=== PATIENT | male | born 1935 | race Caucasian/White ===

== ENCOUNTER 2017-07-28 19:22 | Emergency (ER) | payer MEDICARE, OTHER ==
[~2017-07-28] VITALS: Ht 177.8 cm; Wt 69.4 kg
[~2017-07-28 19:22] MED LIST: ASPIR 8181 MG PO; ASPIRIN325 MG PO; AZITHROMYCIN 500MG/NS 250 ML 250 ML IV STA; Aspirin PO; BUMETANIDE1 MG PO; DOCUSATE SODIU100 MG PO; ENTRESTO PO; FUROSEMIDE40 MG PO; LEVAQUIN500 MG PO; LISINOPRIL10 MG PO; METOPROLOL TART25 MG PO; NITROGLYCERIN0.4 MG SL; NORCO 7.5-3251 EACH PO; PRAVASTATIN SOD40 MG PO; SIMVASTATIN20 MG PO; SODIUM CHLORIDE 0.9% 1000ML 1,000 ML IV STA; triamcinolone TOP
[2017-07-28 20:53] LABS: BASOPHILS # (AUTO) 0.1 (0.0-0.1); BASOPHILS % 0.8 % (0.0-1.0); EOSINOPHILS # (AUTO) 0.3 (0.0-0.4); EOSINOPHILS % 2.9 % (0.0-6.0); HEMATOCRIT 44.5 % (38.2-49.6); HEMOGLOBIN 14.5 g/dL (14.0-18.0); LYMPHOCYTES # (AUTO) 1.1 (1.0-3.2); LYMPHOCYTES % 11.8 % (18.0-39.1); MEAN CORPUSCULAR HEMOGLOBIN 26.7 pg (28-32); MEAN CORPUSCULAR HGB CONC 32.6 g/dL (31-35); MONOCYTES # (AUTO) 0.7 (0.2-0.8); MONOCYTES % 7.4 % (4.4-11.3); NEUTROPHILS # (AUTO) 7.1 (2.1-6.9); NEUTROPHILS % 76.9 % (38.7-80.0); PLATELET COUNT 167 x10e3/uL (140-360); RED BLOOD COUNT 5.43 x10e6/uL (4.3-5.7); RED CELL DISTRIBUTION WIDTH 24.1 % (11.7-14.4)
[2017-07-28] MEDS ORDERED: DIATRIZOATE MEGL/DIATRIZOA SOD 30 ML BTL PO ONE (20:55)
[2017-07-28 21:02] LABS: INR 1.06; PROTHROMBIN TIME 14.4 seconds (11.9-14.5)
[2017-07-28 21:03] LABS: PARTIAL THROMBOPLASTIN TIME 39.3 seconds (23.8-35.5)
[2017-07-28 21:11] LABS: ALBUMIN 3.3 g/dL (3.5-5.0); ALBUMIN/GLOBULIN RATIO 0.8 (0.8-2.0); ANION GAP 15.6 mmol/L (8-16); CALCIUM 9.9 mg/dL (8.4-10.2); CREATININE, SERUM 1.6 mg/dL (0.72-1.25); POTASSIUM 3.6 mmol/L (3.5-5.1)
[2017-07-28 21:15] LABS: B-TYPE NATRIURETIC PEPTIDE2 3795.8 pg/mL (0-100)
[2017-07-28 21:18] LABS: CREATINE KINASE MB 2.5 ng/mL (0.00-5.00); TROPONIN I 0.294 ng/mL (0-0.300)
[2017-07-28 21:37] LABS: ANISOCYTOSIS SLIGHT; PLATELET ESTIMATE ADEQUATE; PLATELET MORPHOLOGY COMMENT FEW GIANT; RBC MORPHOLOGY COMMENT NORMAL
--- NOTE | 2017-07-29 04:31 | Diagnostic Imaging Report ---
EXAM: CT ABDOMEN/PELVIS WO DATE: 07/28/2017 8:33 PM INDICATION: \S\ABD PAIN, CONSTIPATION NO BM X 1 WEEK, CHF ON DOPAMINE COMPARISON: 03/25/2017 TECHNIQUE: The abdomen and pelvis were scanned using a multidetector helical scanner. Coronal and sagittal reformations were obtained. Routine protocol performed. IV Contrast: None FINDINGS: Lack of IV contrast decreases sensitivity in evaluating abdominal and pelvic organs. LOWER THORAX: Cardiomegaly poststernotomy with partially imaged leads. Small left and trace right pleural effusions LIVER/BILIARY: Grossly unremarkable. GALLBLADDER: Not visualized SPLEEN: Unchanged, not enlarged. PANCREAS: Unremarkable ADRENALS: No nodules KIDNEYS: No hydronephrosis or stone disease. Left renal cortical thinning/scarring. GI TRACT: No evidence of obstruction. Scattered diverticulosis. Moderate stool burden within the rectosigmoid colon. VESSELS: Moderate to severe atherosclerotic calcifications. PERITONEUM/RETROPERITONEUM: No free fluid or air LYMPH NODES: No lymphadenopathy REPRODUCTIVE ORGANS/BLADDER: Poorly assessed due to streak artifact from right hip arthroplasty. BONES: Partially imaged right hip arthroplasty. Scattered degenerative changes with minimal anterolisthesis of L5 over S1 IMPRESSION: Moderate rectosigmoid stool burden. Otherwise no acute abnormality on noncontrast evaluation. Signed by: Dr Willow Falcon MD on 07/28/2017 11:08 PM
--- NOTE | 2017-07-29 04:31 | Diagnostic Imaging Report ---
CHEST SINGLE (PORTABLE), 07/28/2017 10:28 PM Technique: CHEST SINGLE (PORTABLE) Comparison: 06/10/2017 Clinical history: Abdominal pain Findings: See Impression Impression: 1. Lines/Tubes: Stable left chest wall ICD and right PICC. Intact median sternotomy wires. 2. Stable mildly enlarged cardiac silhouette. 3. Small bilateral effusions with left basilar opacity, favor atelectasis in the absence of signs/symptoms of infection. Signed by: Dr Willow Falcon MD on 07/28/2017 11:56 PM
== END 2017-07-29 02:15 | disposition home or self-care (01) ==
LOC: ER 19:22
DX: K62.5 Hemorrhage of anus and rectum (principal); K59.00 Constipation, unspecified; I50.9 Heart failure, unspecified; N18.9 Chronic kidney disease, unspecified; I25.10 Atherosclerotic heart disease of native coronary artery without angina pectoris; I25.2 Old myocardial infarction
CPT/HCPCS: 36415; 71010; 74176; 80053; 82150; 82550; 82553; 83605; 83690; 83735; 83880; 84484; 85025; 85610; 85730; 99284

== ENCOUNTER 2019-06-03 17:53 | Emergency (ER) | payer MEDICARE, OTHER ==
[~2019-06-03] VITALS: Ht 177.8 cm; Wt 69.4 kg
[~2019-06-03 17:53] MED LIST changes: -AZITHROMYCIN 500MG/NS 250 ML 250 ML IV STA; -SODIUM CHLORIDE 0.9% 1000ML 1,000 ML IV STA
--- OUTSIDE RECORDS SUMMARY | 2019-06-03 18:07 | XMS REPORT ---
Author Author [facility] Address Unknown Phone Unavailable Care Team Providers Care Partner Integration Planner Name Role Phone EZ FRANCK Unavailable Unavailable TORRI HILLMAN Unavailable Unavailable Joy ARDON Unavailable Unavailable SHAWNVAN LAUREANO Unavailable Unavailable NESTOR SENIOR Unavailable Unavailable BENSON, ARICheco Unavailable Unavailable SAMWAYS, WILEY BONILLA Unavailable Unavailable WILSONJennifer ESPINO Unavailable Unavailable EMELINA, RUPERTO BO Unavailable Unavailable KONSTANTINMin STEARNS Unavailable Unavailable BEERSNEDRA Unavailable Unavailable CAMACHOGael GARCIA Unavailable Unavailable HUNGER, TAB BOWMAN Unavailable Unavailable DI-TOMASSO, G ЕЛЕНА Unavailable Unavailable SHAMEKA PRECIADO Unavailable Unavailable Karuna CHAVES Unavailable Unavailable MARTHA SAM Unavailable Unavailable SWEET, A LAIRD Unavailable Unavailable SENAIT PAZ Unavailable Unavailable Rhonda OLIVER Unavailable Unavailable SHEBIB, ZAHER Unavailable Unavailable BANG, SOUHEIL Unavailable Unavailable COLLEEN, SOBEIDA Unavailable Unavailable Problems This patient has no known problems. Allergies, Adverse Reactions, Alerts This patient has no known allergies or adverse reactions. Medications This patient has no known medications. Results Test Description Test Time Test Comments Text Results Atomic Results Result Comments MAGNESIUM 2019-05-03 11:24:00 MAGNESIUM (BEAKER) (test uvwu=491) 2.1 mg/dL 1.6-2.6 BASIC METABOLIC [id number] 11:24:00* Test Item Value Reference Range Comments SODIUM (BEAKER) (test wifo=535) 138 meq/L 136-145 POTASSIUM (BEAKER) (test dxed=226) 4.4 meq/L 3.5-5.1 CHLORIDE (BEAKER) (test poyz=862) 107 meq/L 98-107 CO2 (BEAKER) (test gemm=617) 26 meq/L 22-29 BLOOD UREA NITROGEN (BEAKER) (test lkmv=255) 30 mg/dL 7-21 CREATININE (BEAKER) (test dymy=720) 1.12 mg/dL 0.57-1.25 GLUCOSE RANDOM (BEAKER) (test ejyl=920) 92 mg/dL 70-105 CALCIUM (BEAKER) (test tukd=376) 9.4 mg/dL 8.4-10.2 EGFR (BEAKER) (test szmt=8925) 63 mL/min/1.73 sq m ESTIMATED GFR IS NOT ACCURATE CREATININE CLEARANCE IN PREDICTING GLOMERULAR FILTRATION RATE. ESTIMATED GFR IS NOT APPLICABLE FOR DIALYSIS PATIENTS. HEPATIC FUNCTION [id number] 11:24:00* Test Item Value Reference Range Comments TOTAL PROTEIN (BEAKER) (test iobh=580) 7.4 gm/dL 6.0-8.3 ALBUMIN (BEAKER) (test cdnt=4507) 3.9 g/dL 3.5-5.0 BILIRUBIN TOTAL (BEAKER) (test haph=690) 0.4 mg/dL 0.2-1.2 BILIRUBIN DIRECT (BEAKER) (test lbxz=458) 0.2 mg/dL 0.1-0.5 ALKALINE PHOSPHATASE (BEAKER) (test oyac=249) 126 U/L 40-150 AST (SGOT) (BEAKER) (test mqaf=426) 21 U/L 5-34 ALT (SGPT) (BEAKER) (test itfp=198) 12 U/L 6-55 LACTATE DEHYDROGENASE (LDH)2019-05-03 11:24:00* Test Item Value Reference Range Comments LACTATE DEHYDROGENASE (BEAKER) (test jvda=074) 208 U/L 125-220 PROTHROMBIN [id number] 11:13:00* Test Item Value Reference Range Comments PROTIME (BEAKER) (test puxl=024) 19.3 seconds 11.9-14.2 INR (BEAKER) (test gdkn=313) 1.7 <=5.9 Effective 11/28/2018: PT Reference Range ChangeNew: 11.9-14.2 Previous: 11.7-14. 7RECOMMENDED COUMADIN/WARFARIN INR THERAPY RANGESSTANDARD DOSE: 2.0-3.0 Include s: PROPHYLAXIS for venous thrombosis, systemic embolization; TREATMENT for venou s thrombosis and/or pulmonary embolus.HIGH RISK: Target INR is 2.5-3.5 for patie nts wiht mechanical heart valves.CBC W/PLT COUNT & AUTO [id number] 11:07:00* Test Item Value Reference Range Comments WHITE BLOOD CELL COUNT (BEAKER) (test tnnv=313) 11.3 K/ L 3.5-10.5 RED BLOOD CELL COUNT (BEAKER) (test cpos=626) 3.82 M/ L 4.63-6.08 HEMOGLOBIN (BEAKER) (test seja=950) 9.8 GM/DL 13.7-17.5 HEMATOCRIT (BEAKER) (test hhpo=346) 32.2 % 40.1-51.0 MEAN CORPUSCULAR VOLUME (BEAKER) (test sxuh=049) 84.3 fL 79.0-92.2 MEAN CORPUSCULAR HEMOGLOBIN (BEAKER) (test hwyg=710) 25.7 pg 25.7-32.2 MEAN CORPUSCULAR HEMOGLOBIN CONC (BEAKER) (test csxk=900) 30.4 GM/DL 32.3-36.5 RED CELL DISTRIBUTION WIDTH (BEAKER) (test rwgk=564) 17.1 % 11.6-14.4 PLATELET COUNT (BEAKER) (test mqpu=031) 286 K/CU MM 150-450 MEAN PLATELET VOLUME (BEAKER) (test bsyq=081) 10.4 fL 9.4-12.4 NUCLEATED RED BLOOD CELLS (BEAKER) (test otcc=215) 0 /100 WBC 0-0 NEUTROPHILS RELATIVE PERCENT (BEAKER) (test nigl=862) 73 % LYMPHOCYTES RELATIVE PERCENT (BEAKER) (test kewx=622) 12 % MONOCYTES RELATIVE PERCENT (BEAKER) (test cpaf=832) 7 % EOSINOPHILS RELATIVE PERCENT (BEAKER) (test swle=490) 7 % BASOPHILS RELATIVE PERCENT (BEAKER) (test tcnq=478) 1 % NEUTROPHILS ABSOLUTE COUNT (BEAKER) (test qkme=573) 8.23 K/ L 1.78-5.38 LYMPHOCYTES ABSOLUTE COUNT (BEAKER) (test jmjd=888) 1.32 K/ L 1.32-3.57 MONOCYTES ABSOLUTE COUNT (BEAKER) (test inpq=040) 0.79 K/ L 0.30-0.82 EOSINOPHILS ABSOLUTE COUNT (BEAKER) (test yemr=289) 0.76 K/ L 0.04-0.54 BASOPHILS ABSOLUTE COUNT (BEAKER) (test foyn=262) 0.13 K/ L 0.01-0.08 IMMATURE GRANULOCYTES-RELATIVE PERCENT (BEAKER) (test xwra=3437) 0 % 0-1 [id number] 12:01:00* Test Item Value Reference Range Comments MAGNESIUM (BEAKER) (test sbtd=074) 2.3 mg/dL 1.6-2.6 BASIC METABOLIC [id number] 12:01:00* Test Item Value Reference Range Comments SODIUM (BEAKER) (test qyhp=260) 140 meq/L 136-145 POTASSIUM (BEAKER) (test wzqz=881) 4.7 meq/L 3.5-5.1 CHLORIDE (BEAKER) (test bnwk=416) 106 meq/L 98-107 CO2 (BEAKER) (test zrgy=268) 24 meq/L 22-29 BLOOD UREA NITROGEN (BEAKER) (test ocis=751) 32 mg/dL 7-21 CREATININE (BEAKER) (test uxnx=236) 1.22 mg/dL 0.57-1.25 GLUCOSE RANDOM (BEAKER) (test wjgq=780) 93 mg/dL 70-105 CALCIUM (BEAKER) (test ewhi=393) 10.0 mg/dL 8.4-10.2 EGFR (BEAKER) (test wobj=5832) 57 mL/min/1.73 sq m ESTIMATED GFR IS NOT ACCURATE CREATININE CLEARANCE IN PREDICTING GLOMERULAR FILTRATION RATE. ESTIMATED GFR IS NOT APPLICABLE FOR DIALYSIS PATIENTS. HEPATIC FUNCTION [id number] 12:01:00* Test Item Value Reference Range Comments TOTAL PROTEIN (BEAKER) (test nnhy=058) 7.9 gm/dL 6.0-8.3 ALBUMIN (BEAKER) (test nlpe=6879) 4.1 g/dL 3.5-5.0 BILIRUBIN TOTAL (BEAKER) (test cbqe=165) 0.6 mg/dL 0.2-1.2 BILIRUBIN DIRECT (BEAKER) (test prlb=831) 0.3 mg/dL 0.1-0.5 ALKALINE PHOSPHATASE (BEAKER) (test twds=019) 140 U/L 40-150 AST (SGOT) (BEAKER) (test bpvw=008) 28 U/L 5-34 ALT (SGPT) (BEAKER) (test qawl=748) 11 U/L 6-55 LACTATE DEHYDROGENASE (LDH)2019-03-22 12:01:00* Test Item Value Reference Range Comments LACTATE DEHYDROGENASE (BEAKER) (test cwlp=137) 327 U/L 125-220 PROTHROMBIN [id number] 11:52:00* Test Item Value Reference Range Comments PROTIME (BEAKER) (test tcua=497) 13.9 seconds 11.9-14.2 INR (BEAKER) (test vnbd=711) 1.1 <=5.9 Effective 11/28/2018: PT Reference Range ChangeNew: 11.9-14.2 Previous: 11.7-14. 7RECOMMENDED COUMADIN/WARFARIN INR THERAPY RANGESSTANDARD DOSE: 2.0-3.0 Include s: PROPHYLAXIS for venous thrombosis, systemic embolization; TREATMENT for venou s thrombosis and/or pulmonary embolus.HIGH RISK: Target INR is 2.5-3.5 for patie nts wiht mechanical heart valves.CBC W/PLT COUNT & AUTO [id number] 11:43:00* Test Item Value Reference Range Comments WHITE BLOOD CELL COUNT (BEAKER) (test rius=750) 10.5 K/ L 3.5-10.5 RED BLOOD CELL COUNT (BEAKER) (test kzuy=545) 4.02 M/ L 4.63-6.08 HEMOGLOBIN (BEAKER) (test asty=768) 10.7 GM/DL 13.7-17.5 HEMATOCRIT (BEAKER) (test iydb=718) 34.2 % 40.1-51.0 MEAN CORPUSCULAR VOLUME (BEAKER) (test fdgl=726) 85.1 fL 79.0-92.2 MEAN CORPUSCULAR HEMOGLOBIN (BEAKER) (test mfcs=395) 26.6 pg 25.7-32.2 MEAN CORPUSCULAR HEMOGLOBIN CONC (BEAKER) (test fcby=823) 31.3 GM/DL 32.3-36.5 RED CELL DISTRIBUTION WIDTH (BEAKER) (test pcvy=413) 15.8 % 11.6-14.4 PLATELET COUNT (BEAKER) (test vwvd=585) 374 K/CU MM 150-450 MEAN PLATELET VOLUME (BEAKER) (test iicq=971) 10.0 fL 9.4-12.4 NUCLEATED RED BLOOD CELLS (BEAKER) (test cgaj=259) 0 /100 WBC 0-0 NEUTROPHILS RELATIVE PERCENT (BEAKER) (test bule=336) 67 % LYMPHOCYTES RELATIVE PERCENT (BEAKER) (test twdj=999) 14 % MONOCYTES RELATIVE PERCENT (BEAKER) (test gxgg=516) 8 % EOSINOPHILS RELATIVE PERCENT (BEAKER) (test puir=049) 9 % BASOPHILS RELATIVE PERCENT (BEAKER) (test ljtq=014) 1 % NEUTROPHILS ABSOLUTE COUNT (BEAKER) (test jasm=428) 6.96 K/ L 1.78-5.38 LYMPHOCYTES ABSOLUTE COUNT (BEAKER) (test ucsb=823) 1.49 K/ L 1.32-3.57 MONOCYTES ABSOLUTE COUNT (BEAKER) (test ephp=751) 0.84 K/ L 0.30-0.82 EOSINOPHILS ABSOLUTE COUNT (BEAKER) (test spmh=911) 0.98 K/ L 0.04-0.54 BASOPHILS ABSOLUTE COUNT (BEAKER) (test rtav=972) 0.15 K/ L 0.01-0.08 IMMATURE GRANULOCYTES-RELATIVE PERCENT (BEAKER) (test menw=0897) 1 % 0-1 [id number] 05:05:00* Test Item Value Reference Range Comments MAGNESIUM (BEAKER) (test lrke=738) 2.0 mg/dL 1.6-2.6 BASIC METABOLIC [id number] 05:05:00* Test Item Value Reference Range Comments SODIUM (BEAKER) (test hxne=639) 141 meq/L 136-145 POTASSIUM (BEAKER) (test mnyt=831) 3.9 meq/L 3.5-5.1 CHLORIDE (BEAKER) (test dkne=213) 107 meq/L 98-107 CO2 (BEAKER) (test gawq=052) 27 meq/L 22-29 BLOOD UREA NITROGEN (BEAKER) (test dqdh=945) 29 mg/dL 7-21 CREATININE (BEAKER) (test szij=640) 1.16 mg/dL 0.57-1.25 GLUCOSE RANDOM (BEAKER) (test dupj=879) 89 mg/dL 70-105 CALCIUM (BEAKER) (test ejfn=748) 9.0 mg/dL 8.4-10.2 EGFR (BEAKER) (test qtzh=3425) 60 mL/min/1.73 sq m ESTIMATED GFR IS NOT ACCURATE CREATININE CLEARANCE IN PREDICTING GLOMERULAR FILTRATION RATE. ESTIMATED GFR IS NOT APPLICABLE FOR DIALYSIS PATIENTS. LACTATE DEHYDROGENASE (LDH)2019-03-13 05:05:00* Test Item Value Reference Range Comments LACTATE DEHYDROGENASE (BEAKER) (test ieoz=098) 186 U/L 125-220 PROTHROMBIN [id number] 04:59:00* Test Item Value Reference Range Comments PROTIME (BEAKER) (test kbyh=519) 13.4 seconds 11.9-14.2 INR (BEAKER) (test bjxo=867) 1.1 <=5.9 Effective 11/28/2018: PT Reference Range ChangeNew: 11.9-14.2 Previous: 11.7-14. 7RECOMMENDED COUMADIN/WARFARIN INR THERAPY RANGESSTANDARD DOSE: 2.0-3.0 Include s: PROPHYLAXIS for venous thrombosis, systemic embolization; TREATMENT for venou s thrombosis and/or pulmonary embolus.HIGH RISK: Target INR is 2.5-3.5 for patie nts wiht mechanical heart valves.CBC W/PLT COUNT & AUTO [id number] 04:49:00* Test Item Value Reference Range Comments WHITE BLOOD CELL COUNT (BEAKER) (test idhq=592) 9.4 K/ L 3.5-10.5 RED BLOOD CELL COUNT (BEAKER) (test xszz=372) 3.31 M/ L 4.63-6.08 HEMOGLOBIN (BEAKER) (test gbor=153) 8.5 GM/DL 13.7-17.5 HEMATOCRIT (BEAKER) (test bpfv=086) 28.1 % 40.1-51.0 MEAN CORPUSCULAR VOLUME (BEAKER) (test lshm=632) 84.9 fL 79.0-92.2 MEAN CORPUSCULAR HEMOGLOBIN (BEAKER) (test ssgq=825) 25.7 pg 25.7-32.2 MEAN CORPUSCULAR HEMOGLOBIN CONC (BEAKER) (test nbvi=878) 30.2 GM/DL 32.3-36.5 RED CELL DISTRIBUTION WIDTH (BEAKER) (test qfhc=164) 16.1 % 11.6-14.4 PLATELET COUNT (BEAKER) (test kpoa=544) 301 K/CU MM 150-450 MEAN PLATELET VOLUME (BEAKER) (test ersf=888) 9.8 fL 9.4-12.4 NUCLEATED RED BLOOD CELLS (BEAKER) (test xgau=995) 0 /100 WBC 0-0 NEUTROPHILS RELATIVE PERCENT (BEAKER) (test hain=714) 59 % LYMPHOCYTES RELATIVE PERCENT (BEAKER) (test naew=200) 18 % MONOCYTES RELATIVE PERCENT (BEAKER) (test opxd=798) 11 % EOSINOPHILS RELATIVE PERCENT (BEAKER) (test addv=469) 10 % BASOPHILS RELATIVE PERCENT (BEAKER) (test lfiy=195) 1 % NEUTROPHILS ABSOLUTE COUNT (BEAKER) (test rvmu=889) 5.58 K/ L 1.78-5.38 LYMPHOCYTES ABSOLUTE COUNT (BEAKER) (test inpb=905) 1.72 K/ L 1.32-3.57 MONOCYTES ABSOLUTE COUNT (BEAKER) (test gwcw=542) 1.05 K/ L 0.30-0.82 EOSINOPHILS ABSOLUTE COUNT (BEAKER) (test pqbv=919) 0.91 K/ L 0.04-0.54 BASOPHILS ABSOLUTE COUNT (BEAKER) (test vkxh=986) 0.13 K/ L 0.01-0.08 IMMATURE GRANULOCYTES-RELATIVE PERCENT (BEAKER) (test xvoc=3685) 0 % 0-1 BASIC METABOLIC [id number] 09:03:00* Test Item Value Reference Range Comments SODIUM (BEAKER) (test wcri=420) 139 meq/L 136-145 POTASSIUM (BEAKER) (test vmtj=545) 4.1 meq/L 3.5-5.1 CHLORIDE (BEAKER) (test yhcj=955) 104 meq/L 98-107 CO2 (BEAKER) (test wpzj=742) 26 meq/L 22-29 BLOOD UREA NITROGEN (BEAKER) (test ypti=453) 27 mg/dL 7-21 CREATININE (BEAKER) (test kqyt=968) 1.23 mg/dL 0.57-1.25 GLUCOSE RANDOM (BEAKER) (test ypea=253) 92 mg/dL 70-105 CALCIUM (BEAKER) (test omqb=788) 9.4 mg/dL 8.4-10.2 EGFR (BEAKER) (test xtiv=9412) 56 mL/min/1.73 sq m ESTIMATED GFR IS NOT ACCURATE CREATININE CLEARANCE IN PREDICTING GLOMERULAR FILTRATION RATE. ESTIMATED GFR IS NOT APPLICABLE FOR DIALYSIS PATIENTS. PROTHROMBIN TIME/[id number] 08:55:00* Test Item Value Reference Range Comments PROTIME (BEAKER) (test tusm=789) 13.2 seconds 11.9-14.2 INR (BEAKER) (test dnek=936) 1.0 <=5.9 Effective 11/28/2018: PT Reference Range ChangeNew: 11.9-14.2 Previous: 11.7-14. 7RECOMMENDED COUMADIN/WARFARIN INR THERAPY RANGESSTANDARD DOSE: 2.0-3.0 Include s: PROPHYLAXIS for venous thrombosis, systemic embolization; TREATMENT for venou s thrombosis and/or pulmonary embolus.HIGH RISK: Target INR is 2.5-3.5 for patie nts wiht mechanical heart valves.CBC W/PLT COUNT & AUTO [id number] 08:54:00* Test Item Value Reference Range Comments WHITE BLOOD CELL COUNT (BEAKER) (test wdnn=796) 11.2 K/ L 3.5-10.5 RED BLOOD CELL COUNT (BEAKER) (test cner=567) 3.46 M/ L 4.63-6.08 HEMOGLOBIN (BEAKER) (test lbrl=849) 9.2 GM/DL 13.7-17.5 HEMATOCRIT (BEAKER) (test epay=584) 29.4 % 40.1-51.0 MEAN CORPUSCULAR VOLUME (BEAKER) (test xuhn=394) 85.0 fL 79.0-92.2 MEAN CORPUSCULAR HEMOGLOBIN (BEAKER) (test emnq=546) 26.6 pg 25.7-32.2 MEAN CORPUSCULAR HEMOGLOBIN CONC (BEAKER) (test krxf=963) 31.3 GM/DL 32.3-36.5 RED CELL DISTRIBUTION WIDTH (BEAKER) (test panl=957) 16.3 % 11.6-14.4 PLATELET COUNT (BEAKER) (test aoyp=366) 344 K/CU MM 150-450 MEAN PLATELET VOLUME (BEAKER) (test srmv=067) 9.9 fL 9.4-12.4 NUCLEATED RED BLOOD CELLS (BEAKER) (test lnhd=373) 0 /100 WBC 0-0 NEUTROPHILS RELATIVE PERCENT (BEAKER) (test ipqx=126) 65 % LYMPHOCYTES RELATIVE PERCENT (BEAKER) (test qvum=595) 16 % MONOCYTES RELATIVE PERCENT (BEAKER) (test vtgr=663) 9 % EOSINOPHILS RELATIVE PERCENT (BEAKER) (test lvaq=645) 9 % BASOPHILS RELATIVE PERCENT (BEAKER) (test ozlv=160) 1 % NEUTROPHILS ABSOLUTE COUNT (BEAKER) (test notq=692) 7.25 K/ L 1.78-5.38 LYMPHOCYTES ABSOLUTE COUNT (BEAKER) (test wtge=768) 1.73 K/ L 1.32-3.57 MONOCYTES ABSOLUTE COUNT (BEAKER) (test wgxb=819) 1.03 K/ L 0.30-0.82 EOSINOPHILS ABSOLUTE COUNT (BEAKER) (test xkxu=319) 0.98 K/ L 0.04-0.54 BASOPHILS ABSOLUTE COUNT (BEAKER) (test ovra=803) 0.12 K/ L 0.01-0.08 IMMATURE GRANULOCYTES-RELATIVE PERCENT (BEAKER) (test yyhm=4687) 1 % 0-1 CBC W/PLT COUNT & AUTO [id number] 13:59:00* Test Item Value Reference Range Comments WHITE BLOOD CELL COUNT (BEAKER) (test zvwd=278) 10.2 K/ L 3.5-10.5 RED BLOOD CELL COUNT (BEAKER) (test ubcz=423) 3.47 M/ L 4.63-6.08 HEMOGLOBIN (BEAKER) (test ehlo=845) 9.3 GM/DL 13.7-17.5 HEMATOCRIT (BEAKER) (test sakq=727) 30.1 % 40.1-51.0 MEAN CORPUSCULAR VOLUME (BEAKER) (test wbsg=066) 86.7 fL 79.0-92.2 MEAN CORPUSCULAR HEMOGLOBIN (BEAKER) (test hxvb=667) 26.8 pg 25.7-32.2 MEAN CORPUSCULAR HEMOGLOBIN CONC (BEAKER) (test uwsj=096) 30.9 GM/DL 32.3-36.5 RED CELL DISTRIBUTION WIDTH (BEAKER) (test ihxp=481) 16.7 % 11.6-14.4 PLATELET COUNT (BEAKER) (test nsft=834) 359 K/CU MM 150-450 MEAN PLATELET VOLUME (BEAKER) (test zbdk=619) 10.1 fL 9.4-12.4 NUCLEATED RED BLOOD CELLS (BEAKER) (test cfxr=278) 0 /100 WBC 0-0 (CELLAVISION MANUAL DIFF)2019-03-08 13:59:00* Test Item Value Reference Range Comments NEUTROPHILS - REL (CELLAVISION)(BEAKER) (test hkwt=2495) 75 % LYMPHOCYTES - REL (CELLAVISION)(BEAKER) (test izye=2750) 7 % MONOCYTES - REL (CELLAVISION)(BEAKER) (test vvko=2189) 5 % EOSINOPHILS - REL (CELLAVISION)(BEAKER) (test lbdn=6589) 10 % BASOPHILS - REL (CELLAVISION)(BEAKER) (test higo=6257) 2 % ATYPICAL LYMPHOCYTES - REL (CELLAVISION)(BEAKER) (test flrl=7354) 1 % 0-0 NEUTROPHILS - ABS (CELLAVISION)(BEAKER) (test qnxa=6887) 7.65 K/ul 1.78-5.38 LYMPHOCYTES - ABS (CELLAVISION)(BEAKER) (test ndvf=4453) 0.71 K/ul 1.32-3.57 MONOCYTES - ABS (CELLAVISION)(BEAKER) (test trcy=5835) 0.51 K/uL 0.30-0.82 EOSINOPHILS - ABS (CELLAVISION)(BEAKER) (test lziz=5479) 1.02 K/uL 0.04-0.54 BASOPHILS - ABS (CELLAVISION)(BEAKER) (test obxo=0577) 0.20 K/uL 0.01-0.08 ATYPICAL LYMPHOCYTES - ABS (CELLAVISION)(BEAKER) (test ttmk=9309) 0.10 K/uL 0.00-0.00 TOTAL COUNTED (BEAKER) (test ffdw=2696) 100 MANUAL NRBC PER 100 CELLS (BEAKER) (test xpwm=7942) 1 /100 WBC 0-0 WBC MORPHOLOGY (BEAKER) (test gebu=363) Normal PLT MORPHOLOGY (BEAKER) (test eujx=246) Normal POLYCHROMATOPHILLIC RBCS(BEAKER) (test ddva=742) 1+ few HYPOCHROMIA (BEAKER) (test uudo=403) 1+ few LOUIS CELLS (BEAKER) (test fxko=114) 1+ few ARTIFACT (CELLAVISION)(BEAKER) (test behu=3274) Present PLATELET CONCENTRATION (CELLAVISION)(BEAKER) (test cprn=6508) Adequate Received comment: User comments: Slide comments: [id number] 12:52:00* Test Item Value Reference Range Comments MAGNESIUM (BEAKER) (test ntce=775) 1.7 mg/dL 1.6-2.6 BASIC METABOLIC [id number] 12:52:00* Test Item Value Reference Range Comments SODIUM (BEAKER) (test rncm=030) 139 meq/L 136-145 POTASSIUM (BEAKER) (test izfm=331) 4.8 meq/L 3.5-5.1 CHLORIDE (BEAKER) (test afeu=702) 106 meq/L 98-107 CO2 (BEAKER) (test cifh=217) 28 meq/L 22-29 BLOOD UREA NITROGEN (BEAKER) (test srlp=558) 29 mg/dL 7-21 CREATININE (BEAKER) (test ktex=626) 1.13 mg/dL 0.57-1.25 GLUCOSE RANDOM (BEAKER) (test sbln=900) 97 mg/dL 70-105 CALCIUM (BEAKER) (test cake=117) 10.0 mg/dL 8.4-10.2 EGFR (BEAKER) (test dqui=5259) 62 mL/min/1.73 sq m ESTIMATED GFR IS NOT ACCURATE CREATININE CLEARANCE IN PREDICTING GLOMERULAR FILTRATION RATE. ESTIMATED GFR IS NOT APPLICABLE FOR DIALYSIS PATIENTS. HEPATIC FUNCTION [id number] 12:52:00* Test Item Value Reference Range Comments TOTAL PROTEIN (BEAKER) (test ahcs=809) 7.1 gm/dL 6.0-8.3 ALBUMIN (BEAKER) (test cmua=7572) 4.0 g/dL 3.5-5.0 BILIRUBIN TOTAL (BEAKER) (test umzv=324) 0.7 mg/dL 0.2-1.2 BILIRUBIN DIRECT (BEAKER) (test rqou=927) 0.4 mg/dL 0.1-0.5 ALKALINE PHOSPHATASE (BEAKER) (test lbrj=059) 125 U/L 40-150 AST (SGOT) (BEAKER) (test xbua=529) 21 U/L 5-34 ALT (SGPT) (BEAKER) (test osvg=244) 10 U/L 6-55 LACTATE DEHYDROGENASE (LDH)2019-03-08 12:52:00* Test Item Value Reference Range Comments LACTATE DEHYDROGENASE (BEAKER) (test zsge=245) 250 U/L 125-220 PROTHROMBIN TIME/[id number] 12:21:00* Test Item Value Reference Range Comments PROTIME (BEAKER) (test qbbs=276) 13.1 seconds 11.9-14.2 INR (BEAKER) (test axln=558) 1.0 <=5.9 Effective 11/28/2018: PT Reference Range ChangeNew: 11.9-14.2 Previous: 11.7-14. 7RECOMMENDED COUMADIN/WARFARIN INR THERAPY RANGESSTANDARD DOSE: 2.0-3.0 Include s: PROPHYLAXIS for venous thrombosis, systemic embolization; TREATMENT for venou s thrombosis and/or pulmonary embolus.HIGH RISK: Target INR is 2.5-3.5 for patie nts wiht mechanical heart valves.RAD, CHEST, 1 VIEW, NON [id number] 08:03:00 Reason for exam:->dyspneaShould this be performed at the bedside?->YesFINAL REPORT CLINICAL HISTORY: dyspnea TECHNIQUE: 1 view of the chest. COMPARISON: 12/18/2018 IMPRESSION: There are no focal infiltrates or effusions. The cardiomediastinal silhouette is magnified by technique with st ernotomy wires, pacemaker, and LVAD. Signed: Shonda Mahoney MDReport Verified Da te/Time: 03/02/2019 08:03:46 Reading Location: [address] Neuro Reading Room ATE DEHYDROGENASE ([facility])2019-03-02 07:37:00* Test Item Value Reference Range Comments LACTATE DEHYDROGENASE (BEAKER) (test zcjh=698) 226 U/L 125-220 Specimen slightly hemolyzed [id number] 07:34:00* Test Item Value Reference Range Comments MAGNESIUM (BEAKER) (test kdvb=950) 1.8 mg/dL 1.6-2.6 Specimen slightly hemolyzed BASIC METABOLIC [id number] 07:34:00* Test Item Value Reference Range Comments SODIUM (BEAKER) (test kmbo=152) 138 meq/L 136-145 POTASSIUM (BEAKER) (test tbsq=647) 4.0 meq/L 3.5-5.1 Specimen slightly hemolyzed CHLORIDE (BEAKER) (test dcxy=146) 110 meq/L 98-107 CO2 (BEAKER) (test lkyy=255) 21 meq/L 22-29 BLOOD UREA NITROGEN (BEAKER) (test debq=716) 24 mg/dL 7-21 CREATININE (BEAKER) (test penb=147) 1.13 mg/dL 0.57-1.25 Specimen slightly hemolyzed GLUCOSE RANDOM (BEAKER) (test toxm=381) 96 mg/dL 70-105 CALCIUM (BEAKER) (test szzc=498) 8.7 mg/dL 8.4-10.2 EGFR (BEAKER) (test skfo=9520) 62 mL/min/1.73 sq m ESTIMATED GFR IS NOT ACCURATE CREATININE CLEARANCE IN PREDICTING GLOMERULAR FILTRATION RATE. ESTIMATED GFR IS NOT APPLICABLE FOR DIALYSIS PATIENTS. CBC (HEMOGRAM ONLY)2019-03-02 05:50:00* Test Item Value Reference Range Comments WHITE BLOOD CELL COUNT (BEAKER) (test oioa=037) 10.4 K/ L 3.5-10.5 RED BLOOD CELL COUNT (BEAKER) (test gemg=602) 2.98 M/ L 4.63-6.08 HEMOGLOBIN (BEAKER) (test alrf=844) 8.1 GM/DL 13.7-17.5 HEMATOCRIT (BEAKER) (test voyy=153) 25.8 % 40.1-51.0 MEAN CORPUSCULAR VOLUME (BEAKER) (test gmgp=327) 86.6 fL 79.0-92.2 MEAN CORPUSCULAR HEMOGLOBIN (BEAKER) (test fpcc=935) 27.2 pg 25.7-32.2 MEAN CORPUSCULAR HEMOGLOBIN CONC (BEAKER) (test fmkw=918) 31.4 GM/DL 32.3-36.5 RED CELL DISTRIBUTION WIDTH (BEAKER) (test iymu=970) 17.6 % 11.6-14.4 PLATELET COUNT (BEAKER) (test ukcd=411) 247 K/CU MM 150-450 MEAN PLATELET VOLUME (BEAKER) (test rica=615) 10.7 fL 9.4-12.4 NUCLEATED RED BLOOD CELLS (BEAKER) (test nvyg=997) 0 /100 WBC 0-0 HEMOGLOBIN AND [id number] 17:06:00* Test Item Value Reference Range Comments HEMOGLOBIN (BEAKER) (test niay=402) 8.3 GM/DL 13.7-17.5 HEMATOCRIT (BEAKER) (test kflz=677) 26.0 % 40.1-51.0 [id number] 06:45:00* Test Item Value Reference Range Comments MAGNESIUM (BEAKER) (test tqqk=171) 1.7 mg/dL 1.6-2.6 BASIC METABOLIC [id number] 06:45:00* Test Item Value Reference Range Comments SODIUM (BEAKER) (test clej=391) 139 meq/L 136-145 POTASSIUM (BEAKER) (test lodp=183) 4.0 meq/L 3.5-5.1 CHLORIDE (BEAKER) (test fjjp=981) 111 meq/L 98-107 CO2 (BEAKER) (test tkwo=701) 21 meq/L 22-29 BLOOD UREA NITROGEN (BEAKER) (test vvld=704) 25 mg/dL 7-21 CREATININE (BEAKER) (test ypos=370) 1.24 mg/dL 0.57-1.25 GLUCOSE RANDOM (BEAKER) (test wsnv=149) 115 mg/dL 70-105 CALCIUM (BEAKER) (test anfd=252) 8.6 mg/dL 8.4-10.2 EGFR (BEAKER) (test xmir=9372) 56 mL/min/1.73 sq m ESTIMATED GFR IS NOT ACCURATE CREATININE CLEARANCE IN PREDICTING GLOMERULAR FILTRATION RATE. ESTIMATED GFR IS NOT APPLICABLE FOR DIALYSIS PATIENTS. LACTATE DEHYDROGENASE ([facility])2019-03-01 06:45:00* Test Item Value Reference Range Comments LACTATE DEHYDROGENASE (BEAKER) (test bctc=762) 182 U/L 125-220 PROTHROMBIN [id number] 06:08:00* Test Item Value Reference Range Comments PROTIME (BEAKER) (test pysf=797) 15.9 seconds 11.9-14.2 INR (BEAKER) (test rdqv=192) 1.3 <=5.9 Effective 11/28/2018: PT Reference Range ChangeNew: 11.9-14.2 Previous: 11.7-14. 7RECOMMENDED COUMADIN/WARFARIN INR THERAPY RANGESSTANDARD DOSE: 2.0-3.0 Include s: PROPHYLAXIS for venous thrombosis, systemic embolization; TREATMENT for venou s thrombosis and/or pulmonary embolus.HIGH RISK: Target INR is 2.5-3.5 for patie nts wiht mechanical heart valves.CBC (HEMOGRAM ONLY)2019-03-01 05:53:00* Test Item Value Reference Range Comments WHITE BLOOD CELL COUNT (BEAKER) (test nqts=918) 10.2 K/ L 3.5-10.5 RED BLOOD CELL COUNT (BEAKER) (test whqi=861) 2.56 M/ L 4.63-6.08 HEMOGLOBIN (BEAKER) (test yxwa=126) 6.9 GM/DL 13.7-17.5 HEMATOCRIT (BEAKER) (test hkuf=470) 22.2 % 40.1-51.0 MEAN CORPUSCULAR VOLUME (BEAKER) (test xxeb=180) 86.7 fL 79.0-92.2 MEAN CORPUSCULAR HEMOGLOBIN (BEAKER) (test vqtd=454) 27.0 pg 25.7-32.2 MEAN CORPUSCULAR HEMOGLOBIN CONC (BEAKER) (test odzu=883) 31.1 GM/DL 32.3-36.5 RED CELL DISTRIBUTION WIDTH (BEAKER) (test uitk=671) 18.1 % 11.6-14.4 PLATELET COUNT (BEAKER) (test ohgy=024) 217 K/CU MM 150-450 MEAN PLATELET VOLUME (BEAKER) (test xuhl=266) 10.5 fL 9.4-12.4 NUCLEATED RED BLOOD CELLS (BEAKER) (test clby=734) 0 /100 WBC 0-0 HEMOGLOBIN AND [id number] 17:17:00* Test Item Value Reference Range Comments HEMOGLOBIN (BEAKER) (test zacv=132) 7.3 GM/DL 13.7-17.5 HEMATOCRIT (BEAKER) (test lafh=222) 22.9 % 40.1-51.0 [id number] 06:47:00* Test Item Value Reference Range Comments MAGNESIUM (BEAKER) (test dhuk=672) 2.0 mg/dL 1.6-2.6 BASIC METABOLIC [id number] 06:47:00* Test Item Value Reference Range Comments SODIUM (BEAKER) (test fnqo=950) 139 meq/L 136-145 POTASSIUM (BEAKER) (test poao=628) 3.7 meq/L 3.5-5.1 CHLORIDE (BEAKER) (test vhrj=508) 111 meq/L 98-107 CO2 (BEAKER) (test xijh=035) 22 meq/L 22-29 BLOOD UREA NITROGEN (BEAKER) (test rtag=658) 22 mg/dL 7-21 CREATININE (BEAKER) (test qgbj=954) 1.05 mg/dL 0.57-1.25 GLUCOSE RANDOM (BEAKER) (test svkc=703) 99 mg/dL 70-105 CALCIUM (BEAKER) (test omsa=413) 8.8 mg/dL 8.4-10.2 EGFR (BEAKER) (test vubz=8820) 68 mL/min/1.73 sq m ESTIMATED GFR IS NOT ACCURATE CREATININE CLEARANCE IN PREDICTING GLOMERULAR FILTRATION RATE. ESTIMATED GFR IS NOT APPLICABLE FOR DIALYSIS PATIENTS. LACTATE DEHYDROGENASE (LDH)2019-02-28 06:47:00* Test Item Value Reference Range Comments LACTATE DEHYDROGENASE (BEAKER) (test qkvu=746) 151 U/L 125-220 PROTHROMBIN TIME/[id number] 05:55:00* Test Item Value Reference Range Comments PROTIME (BEAKER) (test vrbw=115) 17.7 seconds 11.9-14.2 INR (BEAKER) (test mkcv=982) 1.5 <=5.9 Effective 11/28/2018: PT Reference Range ChangeNew: 11.9-14.2 Previous: 11.7-14. 7RECOMMENDED COUMADIN/WARFARIN INR THERAPY RANGESSTANDARD DOSE: 2.0-3.0 Include s: PROPHYLAXIS for venous thrombosis, systemic embolization; TREATMENT for venou s thrombosis and/or pulmonary embolus.HIGH RISK: Target INR is 2.5-3.5 for patie nts wiht mechanical heart valves.CBC (HEMOGRAM ONLY)2019-02-28 05:54:00* Test Item Value Reference Range Comments WHITE BLOOD CELL COUNT (BEAKER) (test uobg=455) 9.6 K/ L 3.5-10.5 RED BLOOD CELL COUNT (BEAKER) (test twnj=862) 2.83 M/ L 4.63-6.08 HEMOGLOBIN (BEAKER) (test pvmt=352) 7.5 GM/DL 13.7-17.5 HEMATOCRIT (BEAKER) (test rpas=470) 24.9 % 40.1-51.0 MEAN CORPUSCULAR VOLUME (BEAKER) (test vety=791) 88.0 fL 79.0-92.2 MEAN CORPUSCULAR HEMOGLOBIN (BEAKER) (test baki=297) 26.5 pg 25.7-32.2 MEAN CORPUSCULAR HEMOGLOBIN CONC (BEAKER) (test zxzp=271) 30.1 GM/DL 32.3-36.5 RED CELL DISTRIBUTION WIDTH (BEAKER) (test kwjj=453) 18.1 % 11.6-14.4 PLATELET COUNT (BEAKER) (test xpbr=082) 242 K/CU MM 150-450 MEAN PLATELET VOLUME (BEAKER) (test pcfz=452) 10.5 fL 9.4-12.4 NUCLEATED RED BLOOD CELLS (BEAKER) (test wuuy=142) 0 /100 WBC 0-0 BASIC METABOLIC [id number] 05:56:00* Test Item Value Reference Range Comments SODIUM (BEAKER) (test dngg=836) 138 meq/L 136-145 POTASSIUM (BEAKER) (test nyro=315) 4.2 meq/L 3.5-5.1 CHLORIDE (BEAKER) (test djnv=806) 111 meq/L 98-107 CO2 (BEAKER) (test huft=051) 20 meq/L 22-29 BLOOD UREA NITROGEN (BEAKER) (test hkmy=367) 26 mg/dL 7-21 CREATININE (BEAKER) (test tfsf=883) 1.09 mg/dL 0.57-1.25 GLUCOSE RANDOM (BEAKER) (test ugvj=592) 104 mg/dL 70-105 CALCIUM (BEAKER) (test ruxn=957) 8.8 mg/dL 8.4-10.2 EGFR (BEAKER) (test ufoh=8023) 65 mL/min/1.73 sq m ESTIMATED GFR IS NOT ACCURATE CREATININE CLEARANCE IN PREDICTING GLOMERULAR FILTRATION RATE. ESTIMATED GFR IS NOT APPLICABLE FOR DIALYSIS PATIENTS. LACTATE DEHYDROGENASE (LDH)2019-02-27 05:56:00* Test Item Value Reference Range Comments LACTATE DEHYDROGENASE (BEAKER) (test jplt=298) 163 U/L 125-220 [id number] 05:55:00* Test Item Value Reference Range Comments MAGNESIUM (BEAKER) (test vpjv=811) 1.9 mg/dL 1.6-2.6 PROTHROMBIN TIME/[id number] 05:44:00* Test Item Value Reference Range Comments PROTIME (BEAKER) (test ncka=054) 19.5 seconds 11.9-14.2 INR (BEAKER) (test lxeq=955) 1.8 <=5.9 Effective 11/28/2018: PT Reference Range ChangeNew: 11.9-14.2 Previous: 11.7-14. 7RECOMMENDED COUMADIN/WARFARIN INR THERAPY RANGESSTANDARD DOSE: 2.0-3.0 Include s: PROPHYLAXIS for venous thrombosis, systemic embolization; TREATMENT for venou s thrombosis and/or pulmonary embolus.HIGH RISK: Target INR is 2.5-3.5 for patie nts wiht mechanical heart valves.CBC (HEMOGRAM ONLY)2019-02-27 05:32:00* Test Item Value Reference Range Comments WHITE BLOOD CELL COUNT (BEAKER) (test syss=193) 10.6 K/ L 3.5-10.5 RED BLOOD CELL COUNT (BEAKER) (test wbtq=233) 3.17 M/ L 4.63-6.08 HEMOGLOBIN (BEAKER) (test lkfz=857) 8.3 GM/DL 13.7-17.5 HEMATOCRIT (BEAKER) (test kqnc=335) 27.6 % 40.1-51.0 MEAN CORPUSCULAR VOLUME (BEAKER) (test dlmm=833) 87.1 fL 79.0-92.2 MEAN CORPUSCULAR HEMOGLOBIN (BEAKER) (test thkx=142) 26.2 pg 25.7-32.2 MEAN CORPUSCULAR HEMOGLOBIN CONC (BEAKER) (test taan=079) 30.1 GM/DL 32.3-36.5 RED CELL DISTRIBUTION WIDTH (BEAKER) (test hiki=762) 17.9 % 11.6-14.4 PLATELET COUNT (BEAKER) (test wguv=962) 275 K/CU MM 150-450 MEAN PLATELET VOLUME (BEAKER) (test ykja=977) 10.2 fL 9.4-12.4 NUCLEATED RED BLOOD CELLS (BEAKER) (test mhdq=698) 0 /100 WBC 0-0 HEMOGLOBIN AND [id number] 17:04:00* Test Item Value Reference Range Comments HEMOGLOBIN (BEAKER) (test aimg=791) 8.9 GM/DL 13.7-17.5 HEMATOCRIT (BEAKER) (test cpwk=104) 28.3 % 40.1-51.0 HEMORRHAGE IMAGING, [id number] 15:47:00FINAL REPORT PROCEDURE: HEMORRHAGE STUDY with RBCs CPT CODE: 27062 INDICATION: Gastrointestinal Bleeding PROTOCOL: 21.4 mCi of Tc-99m was injected intravenously as labeled autologous red blood cells. Flow images of the abdomen were obtained, followed by serial images for approximately 70 minutes. FINDINGS: There is early mild tracer accumulation in the right mid abdomen laterally. Additional focal activity is noted in the left upper-mid abdomen centrally on later images. IMPRESSION:1. There is mild intermittent hemorrhage most likely arising in the mid ascending colon.2. A separate focus of intermittent mild hemorrhage is suggested in the mid small bowel. Signed: Brent Fernández MDReport Verified Date/Time: 02/26/2019 15:47:52 Reading Location: [address] Reading Room ATE DEHYDROGENASE (LDH)2019-02-26 07:05:00 * Test Item Value Reference Range Comments LACTATE DEHYDROGENASE (BEAKER) (test lqni=590) 243 U/L 125-220 Specimen slightly hemolyzed [id number] 06:51:00* Test Item Value Reference Range Comments MAGNESIUM (BEAKER) (test wbol=883) 1.9 mg/dL 1.6-2.6 Specimen slightly hemolyzed BASIC METABOLIC [id number] 06:51:00* Test Item Value Reference Range Comments SODIUM (BEAKER) (test qauy=411) 138 meq/L 136-145 POTASSIUM (BEAKER) (test aeoi=901) 4.7 meq/L 3.5-5.1 Specimen slightly hemolyzed CHLORIDE (BEAKER) (test eovu=495) 111 meq/L 98-107 CO2 (BEAKER) (test laey=986) 21 meq/L 22-29 BLOOD UREA NITROGEN (BEAKER) (test uknd=628) 27 mg/dL 7-21 CREATININE (BEAKER) (test xwrq=803) 0.95 mg/dL 0.57-1.25 Specimen slightly hemolyzed GLUCOSE RANDOM (BEAKER) (test caec=691) 85 mg/dL 70-105 CALCIUM (BEAKER) (test ujpk=920) 8.7 mg/dL 8.4-10.2 EGFR (BEAKER) (test xxku=3223) 76 mL/min/1.73 sq m ESTIMATED GFR IS NOT ACCURATE CREATININE CLEARANCE IN PREDICTING GLOMERULAR FILTRATION RATE. ESTIMATED GFR IS NOT APPLICABLE FOR DIALYSIS PATIENTS. PROTHROMBIN TIME/[id number] 06:03:00* Test Item Value Reference Range Comments PROTIME (BEAKER) (test wbow=993) 22.7 seconds 11.9-14.2 INR (BEAKER) (test cdhd=630) 2.1 <=5.9 Effective 11/28/2018: PT Reference Range ChangeNew: 11.9-14.2 Previous: 11.7-14. 7RECOMMENDED COUMADIN/WARFARIN INR THERAPY RANGESSTANDARD DOSE: 2.0-3.0 Include s: PROPHYLAXIS for venous thrombosis, systemic embolization; TREATMENT for venou s thrombosis and/or pulmonary embolus.HIGH RISK: Target INR is 2.5-3.5 for patie nts wiht mechanical heart valves.CBC (HEMOGRAM ONLY)2019-02-26 05:45:00* Test Item Value Reference Range Comments WHITE BLOOD CELL COUNT (BEAKER) (test fngl=248) 9.1 K/ L 3.5-10.5 RED BLOOD CELL COUNT (BEAKER) (test uufm=203) 3.24 M/ L 4.63-6.08 HEMOGLOBIN (BEAKER) (test ztmr=502) 8.4 GM/DL 13.7-17.5 HEMATOCRIT (BEAKER) (test rayk=839) 27.9 % 40.1-51.0 MEAN CORPUSCULAR VOLUME (BEAKER) (test dgpn=230) 86.1 fL 79.0-92.2 MEAN CORPUSCULAR HEMOGLOBIN (BEAKER) (test pkrn=128) 25.9 pg 25.7-32.2 MEAN CORPUSCULAR HEMOGLOBIN CONC (BEAKER) (test qbyz=916) 30.1 GM/DL 32.3-36.5 RED CELL DISTRIBUTION WIDTH (BEAKER) (test mkde=873) 17.9 % 11.6-14.4 PLATELET COUNT (BEAKER) (test nuge=564) 261 K/CU MM 150-450 MEAN PLATELET VOLUME (BEAKER) (test vken=573) 10.4 fL 9.4-12.4 NUCLEATED RED BLOOD CELLS (BEAKER) (test mtaq=149) 0 /100 WBC 0-0 OCCULT BLOOD, [id number] 23:38:00* Test Item Value Reference Range Comments FECAL OCCULT BLOOD (BEAKER) (test nofk=075) Positive Negative HEMOGLOBIN AND [id number] 16:04:00* Test Item Value Reference Range Comments HEMOGLOBIN (BEAKER) (test neef=578) 9.3 GM/DL 13.7-17.5 HEMATOCRIT (BEAKER) (test dilo=820) 29.7 % 40.1-51.0 [id number] 06:08:00* Test Item Value Reference Range Comments MAGNESIUM (BEAKER) (test rnnp=498) 2.0 mg/dL 1.6-2.6 BASIC METABOLIC [id number] 06:08:00* Test Item Value Reference Range Comments SODIUM (BEAKER) (test dgwm=557) 137 meq/L 136-145 POTASSIUM (BEAKER) (test binw=742) 4.2 meq/L 3.5-5.1 CHLORIDE (BEAKER) (test ffxb=935) 109 meq/L 98-107 CO2 (BEAKER) (test ghtw=464) 22 meq/L 22-29 BLOOD UREA NITROGEN (BEAKER) (test pmaj=015) 35 mg/dL 7-21 CREATININE (BEAKER) (test zrqo=816) 0.90 mg/dL 0.57-1.25 GLUCOSE RANDOM (BEAKER) (test duun=681) 77 mg/dL 70-105 CALCIUM (BEAKER) (test yaad=507) 8.9 mg/dL 8.4-10.2 EGFR (BEAKER) (test prhn=4785) 81 mL/min/1.73 sq m ESTIMATED GFR IS NOT ACCURATE CREATININE CLEARANCE IN PREDICTING GLOMERULAR FILTRATION RATE. ESTIMATED GFR IS NOT APPLICABLE FOR DIALYSIS PATIENTS. LACTATE DEHYDROGENASE (LDH)2019-02-25 06:08:00* Test Item Value Reference Range Comments LACTATE DEHYDROGENASE (BEAKER) (test steu=075) 232 U/L 125-220 PROTHROMBIN TIME/[id number] 05:53:00* Test Item Value Reference Range Comments PROTIME (BEAKER) (test ipsv=403) 25.2 seconds 11.9-14.2 INR (BEAKER) (test qoel=548) 2.4 <=5.9 Effective 11/28/2018: PT Reference Range ChangeNew: 11.9-14.2 Previous: 11.7-14. 7RECOMMENDED COUMADIN/WARFARIN INR THERAPY RANGESSTANDARD DOSE: 2.0-3.0 Include s: PROPHYLAXIS for venous thrombosis, systemic embolization; TREATMENT for venou s thrombosis and/or pulmonary embolus.HIGH RISK: Target INR is 2.5-3.5 for patie nts wiht mechanical heart valves.CBC W/PLT COUNT & AUTO [id number] 05:26:00* Test Item Value Reference Range Comments WHITE BLOOD CELL COUNT (BEAKER) (test stzd=321) 8.4 K/ L 3.5-10.5 RED BLOOD CELL COUNT (BEAKER) (test qhlc=966) 3.56 M/ L 4.63-6.08 HEMOGLOBIN (BEAKER) (test hmlg=681) 9.3 GM/DL 13.7-17.5 HEMATOCRIT (BEAKER) (test esmw=387) 30.5 % 40.1-51.0 MEAN CORPUSCULAR VOLUME (BEAKER) (test qzje=879) 85.7 fL 79.0-92.2 MEAN CORPUSCULAR HEMOGLOBIN (BEAKER) (test jlsm=264) 26.1 pg 25.7-32.2 MEAN CORPUSCULAR HEMOGLOBIN CONC (BEAKER) (test wgwn=021) 30.5 GM/DL 32.3-36.5 RED CELL DISTRIBUTION WIDTH (BEAKER) (test vvns=336) 17.9 % 11.6-14.4 PLATELET COUNT (BEAKER) (test ugrq=118) 279 K/CU MM 150-450 MEAN PLATELET VOLUME (BEAKER) (test fsla=707) 10.0 fL 9.4-12.4 NUCLEATED RED BLOOD CELLS (BEAKER) (test uwuc=231) 0 /100 WBC 0-0 NEUTROPHILS RELATIVE PERCENT (BEAKER) (test dsko=927) 55 % LYMPHOCYTES RELATIVE PERCENT (BEAKER) (test vdxb=745) 24 % MONOCYTES RELATIVE PERCENT (BEAKER) (test xtwm=624) 10 % EOSINOPHILS RELATIVE PERCENT (BEAKER) (test sbqk=808) 10 % BASOPHILS RELATIVE PERCENT (BEAKER) (test lhzl=030) 1 % NEUTROPHILS ABSOLUTE COUNT (BEAKER) (test ebga=400) 4.63 K/ L 1.78-5.38 LYMPHOCYTES ABSOLUTE COUNT (BEAKER) (test jbtt=611) 2.00 K/ L 1.32-3.57 MONOCYTES ABSOLUTE COUNT (BEAKER) (test klne=241) 0.83 K/ L 0.30-0.82 EOSINOPHILS ABSOLUTE COUNT (BEAKER) (test sxob=339) 0.81 K/ L 0.04-0.54 BASOPHILS ABSOLUTE COUNT (BEAKER) (test oaoi=050) 0.10 K/ L 0.01-0.08 IMMATURE GRANULOCYTES-RELATIVE PERCENT (BEAKER) (test diyk=7855) 0 % 0-1 [id number] 17:08:00* Test Item Value Reference Range Comments LIPASE (BEAKER) (test nbkf=960) 69 U/L 8-78 [id number] 17:08:00* Test Item Value Reference Range Comments AMYLASE (BEAKER) (test rpih=544) 76 U/L 25-125 BASIC METABOLIC [id number] 17:08:00* Test Item Value Reference Range Comments SODIUM (BEAKER) (test xlvb=861) 140 meq/L 136-145 POTASSIUM (BEAKER) (test nzrv=745) 4.4 meq/L 3.5-5.1 CHLORIDE (BEAKER) (test txxo=216) 106 meq/L 98-107 CO2 (BEAKER) (test otyd=448) 25 meq/L 22-29 BLOOD UREA NITROGEN (BEAKER) (test bsix=476) 38 mg/dL 7-21 CREATININE (BEAKER) (test asuz=194) 1.03 mg/dL 0.57-1.25 GLUCOSE RANDOM (BEAKER) (test hojq=067) 83 mg/dL 70-105 CALCIUM (BEAKER) (test dcea=358) 9.7 mg/dL 8.4-10.2 EGFR (BEAKER) (test jijy=7296) 69 mL/min/1.73 sq m ESTIMATED GFR IS NOT ACCURATE CREATININE CLEARANCE IN PREDICTING GLOMERULAR FILTRATION RATE. ESTIMATED GFR IS NOT APPLICABLE FOR DIALYSIS PATIENTS. HEPATIC FUNCTION [id number] 17:08:00* Test Item Value Reference Range Comments TOTAL PROTEIN (BEAKER) (test zksn=160) 7.0 gm/dL 6.0-8.3 ALBUMIN (BEAKER) (test omrn=4566) 3.9 g/dL 3.5-5.0 BILIRUBIN TOTAL (BEAKER) (test wmxm=801) 0.5 mg/dL 0.2-1.2 BILIRUBIN DIRECT (BEAKER) (test bwfm=429) 0.3 mg/dL 0.1-0.5 ALKALINE PHOSPHATASE (BEAKER) (test oscr=756) 129 U/L 40-150 AST (SGOT) (BEAKER) (test bbiv=700) 23 U/L 5-34 ALT (SGPT) (BEAKER) (test nfkv=351) 12 U/L 6-55 PT/[id number] 17:00:00* Test Item Value Reference Range Comments PROTIME (BEAKER) (test whgb=992) 24.4 seconds 11.9-14.2 INR (BEAKER) (test fzxe=501) 2.3 <=5.9 PARTIAL THROMBOPLASTIN TIME (BEAKER) (test piqv=154) 45.9 seconds 22.5-36.0 Effective 11/28/2018: PT Reference Range ChangeNew: 11.9-14.2 Previous: 11.7-14. 7RECOMMENDED COUMADIN/WARFARIN INR THERAPY RANGESSTANDARD DOSE: 2.0-3.0 Include s: PROPHYLAXIS for venous thrombosis, systemic embolization; TREATMENT for venou s thrombosis and/or pulmonary embolus.HIGH RISK: Target INR is 2.5-3.5 for patie nts wiht mechanical heart valves.CBC W/PLT COUNT & AUTO [id number] 16:52:00* Test Item Value Reference Range Comments WHITE BLOOD CELL COUNT (BEAKER) (test adpx=147) 9.3 K/ L 3.5-10.5 RED BLOOD CELL COUNT (BEAKER) (test jbsa=958) 4.03 M/ L 4.63-6.08 HEMOGLOBIN (BEAKER) (test ovhk=274) 10.9 GM/DL 13.7-17.5 HEMATOCRIT (BEAKER) (test iyng=669) 33.9 % 40.1-51.0 MEAN CORPUSCULAR VOLUME (BEAKER) (test maor=785) 84.1 fL 79.0-92.2 MEAN CORPUSCULAR HEMOGLOBIN (BEAKER) (test evod=957) 27.0 pg 25.7-32.2 MEAN CORPUSCULAR HEMOGLOBIN CONC (BEAKER) (test ampe=587) 32.2 GM/DL 32.3-36.5 RED CELL DISTRIBUTION WIDTH (BEAKER) (test jznj=033) 18.2 % 11.6-14.4 PLATELET COUNT (BEAKER) (test kgti=818) 310 K/CU MM 150-450 MEAN PLATELET VOLUME (BEAKER) (test rpas=526) 9.7 fL 9.4-12.4 NUCLEATED RED BLOOD CELLS (BEAKER) (test owms=794) 0 /100 WBC 0-0 NEUTROPHILS RELATIVE PERCENT (BEAKER) (test zwyb=540) 63 % LYMPHOCYTES RELATIVE PERCENT (BEAKER) (test uqvb=297) 19 % MONOCYTES RELATIVE PERCENT (BEAKER) (test doit=267) 9 % EOSINOPHILS RELATIVE PERCENT (BEAKER) (test esdi=156) 8 % BASOPHILS RELATIVE PERCENT (BEAKER) (test urfe=701) 1 % NEUTROPHILS ABSOLUTE COUNT (BEAKER) (test krwb=959) 5.82 K/ L 1.78-5.38 LYMPHOCYTES ABSOLUTE COUNT (BEAKER) (test rfuw=328) 1.78 K/ L 1.32-3.57 MONOCYTES ABSOLUTE COUNT (BEAKER) (test ijbv=587) 0.80 K/ L 0.30-0.82 EOSINOPHILS ABSOLUTE COUNT (BEAKER) (test iopy=802) 0.75 K/ L 0.04-0.54 BASOPHILS ABSOLUTE COUNT (BEAKER) (test vnfc=558) 0.11 K/ L 0.01-0.08 IMMATURE GRANULOCYTES-RELATIVE PERCENT (BEAKER) (test awnh=3542) 0 % 0-1 [id number] 12:51:00* Test Item Value Reference Range Comments MAGNESIUM (BEAKER) (test hqjf=785) 2.1 mg/dL 1.6-2.6 BASIC METABOLIC [id number] 12:51:00* Test Item Value Reference Range Comments SODIUM (BEAKER) (test rrfn=245) 139 meq/L 136-145 POTASSIUM (BEAKER) (test qvia=946) 5.4 meq/L 3.5-5.1 CHLORIDE (BEAKER) (test cjlu=398) 109 meq/L 98-107 CO2 (BEAKER) (test gmaz=617) 22 meq/L 22-29 BLOOD UREA NITROGEN (BEAKER) (test lbxe=551) 25 mg/dL 7-21 CREATININE (BEAKER) (test qewp=979) 1.20 mg/dL 0.57-1.25 GLUCOSE RANDOM (BEAKER) (test haun=255) 94 mg/dL 70-105 CALCIUM (BEAKER) (test fptm=370) 9.9 mg/dL 8.4-10.2 EGFR (BEAKER) (test omgf=3511) 58 mL/min/1.73 sq m ESTIMATED GFR IS NOT ACCURATE CREATININE CLEARANCE IN PREDICTING GLOMERULAR FILTRATION RATE. ESTIMATED GFR IS NOT APPLICABLE FOR DIALYSIS PATIENTS. HEPATIC FUNCTION [id number] 12:51:00* Test Item Value Reference Range Comments TOTAL PROTEIN (BEAKER) (test rdst=195) 7.8 gm/dL 6.0-8.3 ALBUMIN (BEAKER) (test bvnp=3886) 4.3 g/dL 3.5-5.0 BILIRUBIN TOTAL (BEAKER) (test kobw=977) 0.8 mg/dL 0.2-1.2 BILIRUBIN DIRECT (BEAKER) (test orgm=519) 0.5 mg/dL 0.1-0.5 ALKALINE PHOSPHATASE (BEAKER) (test kxal=721) 142 U/L 40-150 AST (SGOT) (BEAKER) (test bzud=775) 23 U/L 5-34 ALT (SGPT) (BEAKER) (test ndpx=451) 14 U/L 6-55 LACTATE DEHYDROGENASE (LDH)2019-02-15 12:51:00* Test Item Value Reference Range Comments LACTATE DEHYDROGENASE (BEAKER) (test ymse=940) 300 U/L 125-220 PROTHROMBIN TIME/[id number] 12:45:00* Test Item Value Reference Range Comments PROTIME (BEAKER) (test wtzj=582) 22.0 seconds 11.9-14.2 INR (BEAKER) (test opxr=015) 2.0 <=5.9 Effective 11/28/2018: PT Reference Range ChangeNew: 11.9-14.2 Previous: 11.7-14. 7RECOMMENDED COUMADIN/WARFARIN INR THERAPY RANGESSTANDARD DOSE: 2.0-3.0 Include s: PROPHYLAXIS for venous thrombosis, systemic embolization; TREATMENT for venou s thrombosis and/or pulmonary embolus.HIGH RISK: Target INR is 2.5-3.5 for patie nts wiht mechanical heart valves.CBC W/PLT COUNT & AUTO [id number] 12:30:00* Test Item Value Reference Range Comments WHITE BLOOD CELL COUNT (BEAKER) (test ngtw=097) 10.9 K/ L 3.5-10.5 RED BLOOD CELL COUNT (BEAKER) (test bdfc=435) 4.38 M/ L 4.63-6.08 HEMOGLOBIN (BEAKER) (test lwik=420) 11.5 GM/DL 13.7-17.5 HEMATOCRIT (BEAKER) (test yzsn=454) 37.2 % 40.1-51.0 MEAN CORPUSCULAR VOLUME (BEAKER) (test fumo=432) 84.9 fL 79.0-92.2 MEAN CORPUSCULAR HEMOGLOBIN (BEAKER) (test bfxg=892) 26.3 pg 25.7-32.2 MEAN CORPUSCULAR HEMOGLOBIN CONC (BEAKER) (test wkwk=708) 30.9 GM/DL 32.3-36.5 RED CELL DISTRIBUTION WIDTH (BEAKER) (test phhp=526) 19.7 % 11.6-14.4 PLATELET COUNT (BEAKER) (test zkwr=662) 305 K/CU MM 150-450 MEAN PLATELET VOLUME (BEAKER) (test gywd=769) 9.3 fL 9.4-12.4 NUCLEATED RED BLOOD CELLS (BEAKER) (test cftv=552) 0 /100 WBC 0-0 NEUTROPHILS RELATIVE PERCENT (BEAKER) (test urgm=047) 71 % LYMPHOCYTES RELATIVE PERCENT (BEAKER) (test tynb=749) 15 % MONOCYTES RELATIVE PERCENT (BEAKER) (test zqyd=772) 8 % EOSINOPHILS RELATIVE PERCENT (BEAKER) (test rfrr=527) 5 % BASOPHILS RELATIVE PERCENT (BEAKER) (test puaf=730) 1 % NEUTROPHILS ABSOLUTE COUNT (BEAKER) (test rxxy=092) 7.69 K/ L 1.78-5.38 LYMPHOCYTES ABSOLUTE COUNT (BEAKER) (test bnsu=118) 1.62 K/ L 1.32-3.57 MONOCYTES ABSOLUTE COUNT (BEAKER) (test gteu=716) 0.84 K/ L 0.30-0.82 EOSINOPHILS ABSOLUTE COUNT (BEAKER) (test arqm=960) 0.56 K/ L 0.04-0.54 BASOPHILS ABSOLUTE COUNT (BEAKER) (test vaih=288) 0.12 K/ L 0.01-0.08 IMMATURE GRANULOCYTES-RELATIVE PERCENT (BEAKER) (test lmvs=6906) 0 % 0-1 TISSUE [id number] 15:23:00Surgical Pathology Report Case: [id number] Authorizing Provider: Gretta Mcdaniel DDS Collected: 02/02/2019 1143 Ordering Location: [address] Received: 02/04/2019 0832 Service Pathologist: Roshni Barakat MD Specimen: Tooth, multiple teeth (ID MOUTH, TEETH REMOVAL: - MULTIPLE TEETH IDENTIFIED ( SEE GROSS DESCRIPTION) Signing Pathologist Direct Phone Line: [phone] signed by Roshni Barakat MD on 02/04/2019 at 3:23 [facility] [place]/[id number], teeth, dental abscess, acute apical odontitis Multiple teethReceived in formalin labeled with the patient's name, accession number and "tooth" are multiple white-yellow teeth aggregating 5.5 x 5 x 0.7 cm. A few of the molars have metallic dental work on them. A gross photograph is taken. No sections are submitted - gross only. / APTT 2019-02-03 12:16:00* Test Item Value Reference Range Comments PARTIAL THROMBOPLASTIN TIME (BEAKER) (test njpx=618) 66.3 seconds 22.5-36.0 BASIC METABOLIC [id number] 08:03:00* Test Item Value Reference Range Comments SODIUM (BEAKER) (test vpya=578) 136 meq/L 136-145 POTASSIUM (BEAKER) (test ncnu=779) 5.1 meq/L 3.5-5.1 CHLORIDE (BEAKER) (test ssqd=229) 108 meq/L 98-107 CO2 (BEAKER) (test ybbb=246) 19 meq/L 22-29 BLOOD UREA NITROGEN (BEAKER) (test aplk=509) 23 mg/dL 7-21 CREATININE (BEAKER) (test lppf=518) 1.22 mg/dL 0.57-1.25 GLUCOSE RANDOM (BEAKER) (test bret=137) 122 mg/dL 70-105 CALCIUM (BEAKER) (test ltwu=869) 9.2 mg/dL 8.4-10.2 EGFR (BEAKER) (test etso=3673) 57 mL/min/1.73 sq m ESTIMATED GFR IS NOT ACCURATE CREATININE CLEARANCE IN PREDICTING GLOMERULAR FILTRATION RATE. ESTIMATED GFR IS NOT APPLICABLE FOR DIALYSIS PATIENTS. [id number] 06:14:00* Test Item Value Reference Range Comments PARTIAL THROMBOPLASTIN TIME (BEAKER) (test wzui=730) 73.4 seconds 22.5-36.0 PROTHROMBIN TIME/[id number] 06:12:00* Test Item Value Reference Range Comments PROTIME (BEAKER) (test pzxq=128) 14.7 seconds 11.9-14.2 INR (BEAKER) (test wdsd=992) 1.2 <=5.9 Effective 11/28/2018: PT Reference Range ChangeNew: 11.9-14.2 Previous: 11.7-14. 7RECOMMENDED COUMADIN/WARFARIN INR THERAPY RANGESSTANDARD DOSE: 2.0-3.0 Include s: PROPHYLAXIS for venous thrombosis, systemic embolization; TREATMENT for venou s thrombosis and/or pulmonary embolus.HIGH RISK: Target INR is 2.5-3.5 for patie nts wiht mechanical heart valves.CBC W/PLT COUNT & AUTO [id number] 06:03:00* Test Item Value Reference Range Comments WHITE BLOOD CELL COUNT (BEAKER) (test awha=249) 12.6 K/ L 3.5-10.5 RED BLOOD CELL COUNT (BEAKER) (test vywg=512) 4.07 M/ L 4.63-6.08 HEMOGLOBIN (BEAKER) (test mwzz=735) 10.4 GM/DL 13.7-17.5 HEMATOCRIT (BEAKER) (test bnhl=535) 35.0 % 40.1-51.0 MEAN CORPUSCULAR VOLUME (BEAKER) (test cnvu=180) 86.0 fL 79.0-92.2 MEAN CORPUSCULAR HEMOGLOBIN (BEAKER) (test tjai=902) 25.6 pg 25.7-32.2 MEAN CORPUSCULAR HEMOGLOBIN CONC (BEAKER) (test dalb=814) 29.7 GM/DL 32.3-36.5 RED CELL DISTRIBUTION WIDTH (BEAKER) (test xcxe=526) 21.2 % 11.6-14.4 PLATELET COUNT (BEAKER) (test ukib=403) 236 K/CU MM 150-450 MEAN PLATELET VOLUME (BEAKER) (test welg=251) 10.4 fL 9.4-12.4 NUCLEATED RED BLOOD CELLS (BEAKER) (test ayxf=953) 0 /100 WBC 0-0 NEUTROPHILS RELATIVE PERCENT (BEAKER) (test xbmo=406) 85 % LYMPHOCYTES RELATIVE PERCENT (BEAKER) (test yyxn=424) 8 % MONOCYTES RELATIVE PERCENT (BEAKER) (test schj=932) 6 % EOSINOPHILS RELATIVE PERCENT (BEAKER) (test iqwd=887) 0 % BASOPHILS RELATIVE PERCENT (BEAKER) (test dzeg=506) 0 % NEUTROPHILS ABSOLUTE COUNT (BEAKER) (test oikw=383) 10.73 K/ L 1.78-5.38 LYMPHOCYTES ABSOLUTE COUNT (BEAKER) (test tclt=349) 0.97 K/ L 1.32-3.57 MONOCYTES ABSOLUTE COUNT (BEAKER) (test klfv=250) 0.81 K/ L 0.30-0.82 EOSINOPHILS ABSOLUTE COUNT (BEAKER) (test mvif=568) 0.00 K/ L 0.04-0.54 BASOPHILS ABSOLUTE COUNT (BEAKER) (test ipmy=197) 0.03 K/ L 0.01-0.08 IMMATURE GRANULOCYTES-RELATIVE PERCENT (BEAKER) (test coox=3546) 1 % 0-1 [id number] 14:26:00* Test Item Value Reference Range Comments POTASSIUM (BEAKER) (test inhv=460) 4.8 meq/L 3.5-5.1 BASIC METABOLIC [id number] 08:14:00* Test Item Value Reference Range Comments SODIUM (BEAKER) (test nhgx=730) 142 meq/L 136-145 POTASSIUM (BEAKER) (test kpyg=595) 3.1 meq/L 3.5-5.1 CHLORIDE (BEAKER) (test qlal=699) 120 meq/L 98-107 CO2 (BEAKER) (test vujx=472) 18 meq/L 22-29 BLOOD UREA NITROGEN (BEAKER) (test rofr=377) 18 mg/dL 7-21 CREATININE (BEAKER) (test zsjv=338) 0.67 mg/dL 0.57-1.25 GLUCOSE RANDOM (BEAKER) (test qsvv=410) 66 mg/dL 70-105 CALCIUM (BEAKER) (test majq=396) 6.8 mg/dL 8.4-10.2 EGFR (BEAKER) (test orfq=5989) 114 mL/min/1.73 sq m ESTIMATED GFR IS NOT ACCURATE CREATININE CLEARANCE IN PREDICTING GLOMERULAR FILTRATION RATE. ESTIMATED GFR IS NOT APPLICABLE FOR DIALYSIS PATIENTS. CBC W/PLT COUNT & AUTO [id number] 08:08:00* Test Item Value Reference Range Comments WHITE BLOOD CELL COUNT (BEAKER) (test walm=872) 8.9 K/ L 3.5-10.5 RED BLOOD CELL COUNT (BEAKER) (test lktb=299) 3.61 M/ L 4.63-6.08 HEMOGLOBIN (BEAKER) (test eesj=247) 9.3 GM/DL 13.7-17.5 HEMATOCRIT (BEAKER) (test xnyp=190) 30.7 % 40.1-51.0 MEAN CORPUSCULAR VOLUME (BEAKER) (test yxaa=411) 85.0 fL 79.0-92.2 MEAN CORPUSCULAR HEMOGLOBIN (BEAKER) (test jtpk=595) 25.8 pg 25.7-32.2 MEAN CORPUSCULAR HEMOGLOBIN CONC (BEAKER) (test teic=628) 30.3 GM/DL 32.3-36.5 RED CELL DISTRIBUTION WIDTH (BEAKER) (test bfjf=324) 21.2 % 11.6-14.4 PLATELET COUNT (BEAKER) (test poos=451) 215 K/CU MM 150-450 MEAN PLATELET VOLUME (BEAKER) (test zriq=548) 10.7 fL 9.4-12.4 NUCLEATED RED BLOOD CELLS (BEAKER) (test cowh=686) 0 /100 WBC 0-0 NEUTROPHILS RELATIVE PERCENT (BEAKER) (test dgmq=219) 60 % LYMPHOCYTES RELATIVE PERCENT (BEAKER) (test txoi=529) 21 % MONOCYTES RELATIVE PERCENT (BEAKER) (test qyjn=258) 9 % EOSINOPHILS RELATIVE PERCENT (BEAKER) (test fbsz=489) 8 % BASOPHILS RELATIVE PERCENT (BEAKER) (test zakz=460) 1 % NEUTROPHILS ABSOLUTE COUNT (BEAKER) (test oaug=230) 5.35 K/ L 1.78-5.38 LYMPHOCYTES ABSOLUTE COUNT (BEAKER) (test ftot=613) 1.90 K/ L 1.32-3.57 MONOCYTES ABSOLUTE COUNT (BEAKER) (test pwri=909) 0.78 K/ L 0.30-0.82 EOSINOPHILS ABSOLUTE COUNT (BEAKER) (test rnnp=967) 0.74 K/ L 0.04-0.54 BASOPHILS ABSOLUTE COUNT (BEAKER) (test euxq=759) 0.11 K/ L 0.01-0.08 IMMATURE GRANULOCYTES-RELATIVE PERCENT (BEAKER) (test aqpf=7187) 0 % 0-1 PT/[id number] 06:35:00* Test Item Value Reference Range Comments PROTIME (BEAKER) (test rxfn=161) 16.0 seconds 11.9-14.2 INR (BEAKER) (test chtf=093) 1.4 <=5.9 PARTIAL THROMBOPLASTIN TIME (BEAKER) (test eycd=686) 51.2 seconds 22.5-36.0 Effective 11/28/2018: PT Reference Range ChangeNew: 11.9-14.2 Previous: 11.7-14. 7RECOMMENDED COUMADIN/WARFARIN INR THERAPY RANGESSTANDARD DOSE: 2.0-3.0 Include s: PROPHYLAXIS for venous thrombosis, systemic embolization; TREATMENT for venou s thrombosis and/or pulmonary embolus.HIGH RISK: Target INR is 2.5-3.5 for patie nts wiht mechanical heart valves.[id number] 17:12:00* Test Item Value Reference Range Comments PARTIAL THROMBOPLASTIN TIME (BEAKER) (test lfab=798) 70.1 seconds 22.5-36.0 BASIC METABOLIC [id number] 07:25:00* Test Item Value Reference Range Comments SODIUM (BEAKER) (test ikfe=139) 137 meq/L 136-145 POTASSIUM (BEAKER) (test mmmr=387) 4.3 meq/L 3.5-5.1 CHLORIDE (BEAKER) (test kils=196) 110 meq/L 98-107 CO2 (BEAKER) (test xptf=391) 18 meq/L 22-29 BLOOD UREA NITROGEN (BEAKER) (test ycjg=982) 29 mg/dL 7-21 CREATININE (BEAKER) (test zoef=055) 1.02 mg/dL 0.57-1.25 GLUCOSE RANDOM (BEAKER) (test qqcr=989) 86 mg/dL 70-105 CALCIUM (BEAKER) (test spez=147) 9.0 mg/dL 8.4-10.2 EGFR (BEAKER) (test pywu=0211) 70 mL/min/1.73 sq m ESTIMATED GFR IS NOT ACCURATE CREATININE CLEARANCE IN PREDICTING GLOMERULAR FILTRATION RATE. ESTIMATED GFR IS NOT APPLICABLE FOR DIALYSIS PATIENTS. CBC W/PLT COUNT & AUTO [id number] 07:05:00* Test Item Value Reference Range Comments WHITE BLOOD CELL COUNT (BEAKER) (test mgbn=390) 10.2 K/ L 3.5-10.5 RED BLOOD CELL COUNT (BEAKER) (test xzxi=101) 3.86 M/ L 4.63-6.08 HEMOGLOBIN (BEAKER) (test jxsx=855) 9.8 GM/DL 13.7-17.5 HEMATOCRIT (BEAKER) (test ntaw=877) 32.5 % 40.1-51.0 MEAN CORPUSCULAR VOLUME (BEAKER) (test dsiw=908) 84.2 fL 79.0-92.2 MEAN CORPUSCULAR HEMOGLOBIN (BEAKER) (test gmbx=332) 25.4 pg 25.7-32.2 MEAN CORPUSCULAR HEMOGLOBIN CONC (BEAKER) (test eids=775) 30.2 GM/DL 32.3-36.5 RED CELL DISTRIBUTION WIDTH (BEAKER) (test mwuh=777) 21.0 % 11.6-14.4 PLATELET COUNT (BEAKER) (test osra=029) 232 K/CU MM 150-450 MEAN PLATELET VOLUME (BEAKER) (test qcdf=357) 10.6 fL 9.4-12.4 NUCLEATED RED BLOOD CELLS (BEAKER) (test vqqu=826) 0 /100 WBC 0-0 NEUTROPHILS RELATIVE PERCENT (BEAKER) (test xusc=728) 57 % LYMPHOCYTES RELATIVE PERCENT (BEAKER) (test omth=581) 23 % MONOCYTES RELATIVE PERCENT (BEAKER) (test ldcw=670) 9 % EOSINOPHILS RELATIVE PERCENT (BEAKER) (test tqvz=382) 8 % BASOPHILS RELATIVE PERCENT (BEAKER) (test qkig=420) 2 % NEUTROPHILS ABSOLUTE COUNT (BEAKER) (test kyhp=245) 5.86 K/ L 1.78-5.38 LYMPHOCYTES ABSOLUTE COUNT (BEAKER) (test acal=801) 2.39 K/ L 1.32-3.57 MONOCYTES ABSOLUTE COUNT (BEAKER) (test hnid=372) 0.92 K/ L 0.30-0.82 EOSINOPHILS ABSOLUTE COUNT (BEAKER) (test nbkl=385) 0.86 K/ L 0.04-0.54 BASOPHILS ABSOLUTE COUNT (BEAKER) (test naat=353) 0.16 K/ L 0.01-0.08 IMMATURE GRANULOCYTES-RELATIVE PERCENT (BEAKER) (test czoo=5088) 0 % 0-1 PT/[id number] 06:58:00* Test Item Value Reference Range Comments PROTIME (BEAKER) (test kqfz=431) 16.0 seconds 11.9-14.2 INR (BEAKER) (test sitb=746) 1.4 <=5.9 PARTIAL THROMBOPLASTIN TIME (BEAKER) (test oxsf=591) 95.5 seconds 22.5-36.0 Effective 11/28/2018: PT Reference Range ChangeNew: 11.9-14.2 Previous: 11.7-14. 7RECOMMENDED COUMADIN/WARFARIN INR THERAPY RANGESSTANDARD DOSE: 2.0-3.0 Include s: PROPHYLAXIS for venous thrombosis, systemic embolization; TREATMENT for venou s thrombosis and/or pulmonary embolus.HIGH RISK: Target INR is 2.5-3.5 for patie nts wiht mechanical heart valves.6 hours after starting heparin infusion and as indicated per sliding scale6 hours after starting heparin infusion and as indica fabricio per sliding [id number] 06:58:00* Test Item Value Reference Range Comments PARTIAL THROMBOPLASTIN TIME (BEAKER) (test dpfi=039) 95.5 seconds 22.5-36.0 PROTHROMBIN TIME/[id number] 06:56:00* Test Item Value Reference Range Comments PROTIME (BEAKER) (test dpqr=035) 16.0 seconds 11.9-14.2 INR (BEAKER) (test dewb=069) 1.4 <=5.9 Effective 11/28/2018: PT Reference Range ChangeNew: 11.9-14.2 Previous: 11.7-14. 7RECOMMENDED COUMADIN/WARFARIN INR THERAPY RANGESSTANDARD DOSE: 2.0-3.0 Include s: PROPHYLAXIS for venous thrombosis, systemic embolization; TREATMENT for venou s thrombosis and/or pulmonary embolus.HIGH RISK: Target INR is 2.5-3.5 for patie nts wiht mechanical heart valves.[id number] 23:13:00* Test Item Value Reference Range Comments PARTIAL THROMBOPLASTIN TIME (BEAKER) (test zmwo=828) 87.7 seconds 22.5-36.0 BASIC METABOLIC [id number] 14:08:00* Test Item Value Reference Range Comments SODIUM (BEAKER) (test cubx=047) 136 meq/L 136-145 POTASSIUM (BEAKER) (test qpwy=978) 4.5 meq/L 3.5-5.1 CHLORIDE (BEAKER) (test sxtq=011) 107 meq/L 98-107 CO2 (BEAKER) (test ibvh=355) 20 meq/L 22-29 BLOOD UREA NITROGEN (BEAKER) (test blbe=417) 31 mg/dL 7-21 CREATININE (BEAKER) (test otuo=722) 1.12 mg/dL 0.57-1.25 GLUCOSE RANDOM (BEAKER) (test qwaw=044) 84 mg/dL 70-105 CALCIUM (BEAKER) (test xuth=088) 9.7 mg/dL 8.4-10.2 EGFR (BEAKER) (test jffz=7835) 63 mL/min/1.73 sq m ESTIMATED GFR IS NOT ACCURATE CREATININE CLEARANCE IN PREDICTING GLOMERULAR FILTRATION RATE. ESTIMATED GFR IS NOT APPLICABLE FOR DIALYSIS PATIENTS. CBC W/PLT COUNT & AUTO [id number] 13:53:00* Test Item Value Reference Range Comments WHITE BLOOD CELL COUNT (BEAKER) (test rgyg=125) 9.8 K/ L 3.5-10.5 RED BLOOD CELL COUNT (BEAKER) (test lvrg=278) 4.14 M/ L 4.63-6.08 HEMOGLOBIN (BEAKER) (test pltr=940) 10.5 GM/DL 13.7-17.5 HEMATOCRIT (BEAKER) (test elwf=240) 34.9 % 40.1-51.0 MEAN CORPUSCULAR VOLUME (BEAKER) (test jeds=274) 84.3 fL 79.0-92.2 MEAN CORPUSCULAR HEMOGLOBIN (BEAKER) (test ejvp=979) 25.4 pg 25.7-32.2 MEAN CORPUSCULAR HEMOGLOBIN CONC (BEAKER) (test mqea=514) 30.1 GM/DL 32.3-36.5 RED CELL DISTRIBUTION WIDTH (BEAKER) (test nrrh=721) 21.0 % 11.6-14.4 PLATELET COUNT (BEAKER) (test ezva=820) 280 K/CU MM 150-450 MEAN PLATELET VOLUME (BEAKER) (test twjm=909) 10.5 fL 9.4-12.4 NUCLEATED RED BLOOD CELLS (BEAKER) (test taoe=496) 0 /100 WBC 0-0 NEUTROPHILS RELATIVE PERCENT (BEAKER) (test cecy=560) 66 % LYMPHOCYTES RELATIVE PERCENT (BEAKER) (test stkp=231) 18 % MONOCYTES RELATIVE PERCENT (BEAKER) (test fzrk=085) 8 % EOSINOPHILS RELATIVE PERCENT (BEAKER) (test etjx=949) 6 % BASOPHILS RELATIVE PERCENT (BEAKER) (test bxim=352) 1 % NEUTROPHILS ABSOLUTE COUNT (BEAKER) (test scjx=466) 6.46 K/ L 1.78-5.38 LYMPHOCYTES ABSOLUTE COUNT (BEAKER) (test olmo=357) 1.72 K/ L 1.32-3.57 MONOCYTES ABSOLUTE COUNT (BEAKER) (test qcsj=477) 0.81 K/ L 0.30-0.82 EOSINOPHILS ABSOLUTE COUNT (BEAKER) (test gsuy=433) 0.61 K/ L 0.04-0.54 BASOPHILS ABSOLUTE COUNT (BEAKER) (test psek=799) 0.12 K/ L 0.01-0.08 IMMATURE GRANULOCYTES-RELATIVE PERCENT (BEAKER) (test nlpr=2758) 0 % 0-1 [id number] 13:48:00* Test Item Value Reference Range Comments PROTIME (BEAKER) (test hdkt=824) 17.4 seconds 11.9-14.2 INR (BEAKER) (test rfyd=189) 1.5 <=5.9 PARTIAL THROMBOPLASTIN TIME (BEAKER) (test jbmc=093) 40.2 seconds 22.5-36.0 Effective 11/28/2018: PT Reference Range ChangeNew: 11.9-14.2 Previous: 11.7-14. 7RECOMMENDED COUMADIN/WARFARIN INR THERAPY RANGESSTANDARD DOSE: 2.0-3.0 Include s: PROPHYLAXIS for venous thrombosis, systemic embolization; TREATMENT for venou s thrombosis and/or pulmonary embolus.HIGH RISK: Target INR is 2.5-3.5 for patie nts wiht mechanical heart valves.[id number] 13:36:00* Test Item Value Reference Range Comments FERRITIN (BEAKER) (test ctjh=170) 46 ng/mL 5-275 TSH/FREE T4 IF [id number] 13:36:00* Test Item Value Reference Range Comments THYROID STIMULATING HORMONE (BEAKER) (test mmyk=276) 3.35 uIU/mL 0.35-4.94 [id number] 13:36:00* Test Item Value Reference Range Comments THYROID STIMULATING HORMONE (BEAKER) (test dmgb=514) 3.35 uIU/mL 0.35-4.94 IRON, TIBC, % SAT. (WITHOUT FERRITIN)2019-01-02 13:16:00* Test Item Value Reference Range Comments IRON (BEAKER) (test kzlk=595) 55.0 ug/dL 40.0-160.0 TOTAL IRON BINDING CAPACITY (BEAKER) (test bqts=814) 436 ug/dL 250-450 IRON % SATURATION (2) (BEAKER) (test zeka=3533) 13 % 20-55 LACTATE DEHYDROGENASE (LDH)2019-01-02 13:11:00* Test Item Value Reference Range Comments LACTATE DEHYDROGENASE (BEAKER) (test ztes=843) 415 U/L 125-220 Specimen moderately hemolyzed [id number] 13:08:00* Test Item Value Reference Range Comments MAGNESIUM (BEAKER) (test uttj=535) 2.1 mg/dL 1.6-2.6 Specimen moderately hemolyzed BASIC METABOLIC [id number] 13:08:00* Test Item Value Reference Range Comments SODIUM (BEAKER) (test jvzw=773) 137 meq/L 136-145 POTASSIUM (BEAKER) (test wvxp=652) 4.4 meq/L 3.5-5.1 Specimen moderately hemolyzed CHLORIDE (BEAKER) (test knhp=639) 104 meq/L 98-107 CO2 (BEAKER) (test ldjy=650) 24 meq/L 22-29 BLOOD UREA NITROGEN (BEAKER) (test stkd=591) 37 mg/dL 7-21 CREATININE (BEAKER) (test ipkk=796) 1.29 mg/dL 0.57-1.25 Specimen moderately hemolyzed GLUCOSE RANDOM (BEAKER) (test sspc=142) 136 mg/dL 70-105 CALCIUM (BEAKER) (test xyrg=503) 9.9 mg/dL 8.4-10.2 EGFR (BEAKER) (test oulf=8004) 53 mL/min/1.73 sq m ESTIMATED GFR IS NOT ACCURATE CREATININE CLEARANCE IN PREDICTING GLOMERULAR FILTRATION RATE. ESTIMATED GFR IS NOT APPLICABLE FOR DIALYSIS PATIENTS. HEPATIC FUNCTION [id number] 13:08:00* Test Item Value Reference Range Comments TOTAL PROTEIN (BEAKER) (test fyms=839) 8.0 gm/dL 6.0-8.3 Specimen moderately hemolyzed ALBUMIN (BEAKER) (test qimf=4315) 4.3 g/dL 3.5-5.0 Specimen moderately hemolyzed BILIRUBIN TOTAL (BEAKER) (test vcaf=609) 0.6 mg/dL 0.2-1.2 Specimen moderately hemolyzed BILIRUBIN DIRECT (BEAKER) (test znkj=174) 0.3 mg/dL 0.1-0.5 Specimen moderately hemolyzed ALKALINE PHOSPHATASE (BEAKER) (test xmhk=523) 143 U/L 40-150 AST (SGOT) (BEAKER) (test lljz=548) 37 U/L 5-34 Specimen moderately hemolyzed ALT (SGPT) (BEAKER) (test vgsl=108) 16 U/L 6-55 Specimen moderately hemolyzed PROTHROMBIN TIME/[id number] 12:50:00* Test Item Value Reference Range Comments PROTIME (BEAKER) (test euzu=066) 20.6 seconds 11.9-14.2 INR (BEAKER) (test gxeb=388) 1.9 <=5.9 Effective 11/28/2018: PT Reference Range ChangeNew: 11.9-14.2 Previous: 11.7-14. 7RECOMMENDED COUMADIN/WARFARIN INR THERAPY RANGESSTANDARD DOSE: 2.0-3.0 Include s: PROPHYLAXIS for venous thrombosis, systemic embolization; TREATMENT for venou s thrombosis and/or pulmonary embolus.HIGH RISK: Target INR is 2.5-3.5 for patie nts wiht mechanical heart valves.CBC W/PLT COUNT & AUTO [id number] 12:47:00* Test Item Value Reference Range Comments WHITE BLOOD CELL COUNT (BEAKER) (test eezd=155) 9.2 K/ L 3.5-10.5 RED BLOOD CELL COUNT (BEAKER) (test blqn=195) 4.76 M/ L 4.63-6.08 HEMOGLOBIN (BEAKER) (test egvo=744) 11.8 GM/DL 13.7-17.5 HEMATOCRIT (BEAKER) (test zeka=754) 38.8 % 40.1-51.0 MEAN CORPUSCULAR VOLUME (BEAKER) (test obca=109) 81.5 fL 79.0-92.2 MEAN CORPUSCULAR HEMOGLOBIN (BEAKER) (test ldel=559) 24.8 pg 25.7-32.2 MEAN CORPUSCULAR HEMOGLOBIN CONC (BEAKER) (test nohr=788) 30.4 GM/DL 32.3-36.5 RED CELL DISTRIBUTION WIDTH (BEAKER) (test nltj=832) 21.3 % 11.6-14.4 PLATELET COUNT (BEAKER) (test jdop=665) 289 K/CU MM 150-450 MEAN PLATELET VOLUME (BEAKER) (test sqxn=264) 10.6 fL 9.4-12.4 NUCLEATED RED BLOOD CELLS (BEAKER) (test mxwh=831) 0 /100 WBC 0-0 NEUTROPHILS RELATIVE PERCENT (BEAKER) (test sclv=306) 62 % LYMPHOCYTES RELATIVE PERCENT (BEAKER) (test qgpq=365) 19 % MONOCYTES RELATIVE PERCENT (BEAKER) (test mfoa=104) 8 % EOSINOPHILS RELATIVE PERCENT (BEAKER) (test evfn=297) 10 % BASOPHILS RELATIVE PERCENT (BEAKER) (test irts=576) 2 % NEUTROPHILS ABSOLUTE COUNT (BEAKER) (test exkn=511) 5.70 K/ L 1.78-5.38 LYMPHOCYTES ABSOLUTE COUNT (BEAKER) (test fpoc=143) 1.70 K/ L 1.32-3.57 MONOCYTES ABSOLUTE COUNT (BEAKER) (test fzrd=538) 0.70 K/ L 0.30-0.82 EOSINOPHILS ABSOLUTE COUNT (BEAKER) (test ecql=066) 0.88 K/ L 0.04-0.54 BASOPHILS ABSOLUTE COUNT (BEAKER) (test dtci=158) 0.17 K/ L 0.01-0.08 IMMATURE GRANULOCYTES-RELATIVE PERCENT (BEAKER) (test upiy=7199) 0 % 0-1 [id number] 07:16:00* Test Item Value Reference Range Comments MAGNESIUM (BEAKER) (test sbnn=159) 1.8 mg/dL 1.6-2.6 BASIC METABOLIC [id number] 07:16:00* Test Item Value Reference Range Comments SODIUM (BEAKER) (test xyyt=930) 137 meq/L 136-145 POTASSIUM (BEAKER) (test rhsu=569) 4.7 meq/L 3.5-5.1 CHLORIDE (BEAKER) (test ahwi=733) 109 meq/L 98-107 CO2 (BEAKER) (test npvz=015) 21 meq/L 22-29 BLOOD UREA NITROGEN (BEAKER) (test ylnk=719) 27 mg/dL 7-21 CREATININE (BEAKER) (test gkky=230) 0.92 mg/dL 0.57-1.25 GLUCOSE RANDOM (BEAKER) (test onkl=601) 90 mg/dL 70-105 CALCIUM (BEAKER) (test irgh=490) 9.2 mg/dL 8.4-10.2 EGFR (BEAKER) (test jskz=1387) 79 mL/min/1.73 sq m ESTIMATED GFR IS NOT ACCURATE CREATININE CLEARANCE IN PREDICTING GLOMERULAR FILTRATION RATE. ESTIMATED GFR IS NOT APPLICABLE FOR DIALYSIS PATIENTS. LACTATE DEHYDROGENASE (LDH)2018-12-20 07:16:00* Test Item Value Reference Range Comments LACTATE DEHYDROGENASE (BEAKER) (test ygrj=617) 211 U/L 125-220 CBC (HEMOGRAM ONLY)2018-12-20 06:14:00* Test Item Value Reference Range Comments WHITE BLOOD CELL COUNT (BEAKER) (test hcvj=838) 10.3 K/ L 3.5-10.5 RED BLOOD CELL COUNT (BEAKER) (test lobs=390) 4.22 M/ L 4.63-6.08 HEMOGLOBIN (BEAKER) (test ysto=091) 10.2 GM/DL 13.7-17.5 HEMATOCRIT (BEAKER) (test kxjt=518) 34.9 % 40.1-51.0 MEAN CORPUSCULAR VOLUME (BEAKER) (test rjpo=671) 82.7 fL 79.0-92.2 MEAN CORPUSCULAR HEMOGLOBIN (BEAKER) (test ensx=472) 24.2 pg 25.7-32.2 MEAN CORPUSCULAR HEMOGLOBIN CONC (BEAKER) (test wepm=676) 29.2 GM/DL 32.3-36.5 RED CELL DISTRIBUTION WIDTH (BEAKER) (test fzry=169) 20.5 % 11.6-14.4 PLATELET COUNT (BEAKER) (test cjmo=387) 321 K/CU MM 150-450 MEAN PLATELET VOLUME (BEAKER) (test zhhm=721) 10.6 fL 9.4-12.4 NUCLEATED RED BLOOD CELLS (BEAKER) (test zsai=652) 0 /100 WBC 0-0 PROTHROMBIN TIME/[id number] 06:14:00* Test Item Value Reference Range Comments PROTIME (BEAKER) (test sxcs=991) 22.0 seconds 11.9-14.2 INR (BEAKER) (test fzum=340) 2.0 <=5.9 Effective 11/28/2018: PT Reference Range ChangeNew: 11.9-14.2 Previous: 11.7-14. 7RECOMMENDED COUMADIN/WARFARIN INR THERAPY RANGESSTANDARD DOSE: 2.0-3.0 Include s: PROPHYLAXIS for venous thrombosis, systemic embolization; TREATMENT for venou s thrombosis and/or pulmonary embolus.HIGH RISK: Target INR is 2.5-3.5 for patie nts wiht mechanical heart valves.[id number] 06:09:00* Test Item Value Reference Range Comments MAGNESIUM (BEAKER) (test sycg=267) 1.9 mg/dL 1.6-2.6 BASIC METABOLIC [id number] 06:09:00* Test Item Value Reference Range Comments SODIUM (BEAKER) (test ibuw=378) 139 meq/L 136-145 POTASSIUM (BEAKER) (test docd=255) 4.8 meq/L 3.5-5.1 CHLORIDE (BEAKER) (test fywe=880) 111 meq/L 98-107 CO2 (BEAKER) (test kzqf=900) 22 meq/L 22-29 BLOOD UREA NITROGEN (BEAKER) (test fsyw=173) 21 mg/dL 7-21 CREATININE (BEAKER) (test iaqu=059) 0.88 mg/dL 0.57-1.25 GLUCOSE RANDOM (BEAKER) (test udow=089) 95 mg/dL 70-105 CALCIUM (BEAKER) (test lusw=994) 9.2 mg/dL 8.4-10.2 EGFR (BEAKER) (test iaha=2122) 83 mL/min/1.73 sq m ESTIMATED GFR IS NOT ACCURATE CREATININE CLEARANCE IN PREDICTING GLOMERULAR FILTRATION RATE. ESTIMATED GFR IS NOT APPLICABLE FOR DIALYSIS PATIENTS. LACTATE DEHYDROGENASE (LDH)2018-12-19 06:09:00* Test Item Value Reference Range Comments LACTATE DEHYDROGENASE (BEAKER) (test gztu=616) 196 U/L 125-220 PROTHROMBIN TIME/[id number] 05:45:00* Test Item Value Reference Range Comments PROTIME (BEAKER) (test sxcr=577) 21.7 seconds 11.9-14.2 INR (BEAKER) (test onxt=696) 2.0 <=5.9 Effective 11/28/2018: PT Reference Range ChangeNew: 11.9-14.2 Previous: 11.7-14. 7RECOMMENDED COUMADIN/WARFARIN INR THERAPY RANGESSTANDARD DOSE: 2.0-3.0 Include s: PROPHYLAXIS for venous thrombosis, systemic embolization; TREATMENT for venou s thrombosis and/or pulmonary embolus.HIGH RISK: Target INR is 2.5-3.5 for patie nts wiht mechanical heart valves.CBC (HEMOGRAM ONLY)2018-12-19 05:42:00* Test Item Value Reference Range Comments WHITE BLOOD CELL COUNT (BEAKER) (test ggvl=198) 8.2 K/ L 3.5-10.5 RED BLOOD CELL COUNT (BEAKER) (test ifzo=753) 4.18 M/ L 4.63-6.08 HEMOGLOBIN (BEAKER) (test pruf=378) 10.4 GM/DL 13.7-17.5 HEMATOCRIT (BEAKER) (test dpaw=755) 34.5 % 40.1-51.0 MEAN CORPUSCULAR VOLUME (BEAKER) (test ttgo=866) 82.5 fL 79.0-92.2 MEAN CORPUSCULAR HEMOGLOBIN (BEAKER) (test clvf=585) 24.9 pg 25.7-32.2 MEAN CORPUSCULAR HEMOGLOBIN CONC (BEAKER) (test voar=479) 30.1 GM/DL 32.3-36.5 RED CELL DISTRIBUTION WIDTH (BEAKER) (test utxa=250) 20.5 % 11.6-14.4 PLATELET COUNT (BEAKER) (test uruf=620) 334 K/CU MM 150-450 MEAN PLATELET VOLUME (BEAKER) (test omcx=003) 10.9 fL 9.4-12.4 NUCLEATED RED BLOOD CELLS (BEAKER) (test ptos=133) 0 /100 WBC 0-0 TROPONIN [id number] 07:23:00* Test Item Value Reference Range Comments TROPONIN I (BEAKER) (test imoe=459) 0.02 ng/mL 0.00-0.03 Troponin I (TnI) levels must be interpreted in the context of the presenting sym ptoms and the clinical findings. Elevated TnI levels indicate myocardial damage, but are not specific for ischemic heart disease. Elevated TnI levels are seen in patients with other cardiac conditions (including myocarditis and congestive h eart failure), and slight TnI elevations occur in patients with other conditions , including sepsis, renal failure, acidosis, acute neurological disease, and per sistent tachyarrhythmia.LACTATE DEHYDROGENASE (LDH)2018-12-18 07:16:00* Test Item Value Reference Range Comments LACTATE DEHYDROGENASE (BEAKER) (test xekc=787) 235 U/L 125-220 BASIC METABOLIC [id number] 07:16:00* Test Item Value Reference Range Comments SODIUM (BEAKER) (test jncv=704) 136 meq/L 136-145 POTASSIUM (BEAKER) (test muvy=209) 5.0 meq/L 3.5-5.1 CHLORIDE (BEAKER) (test nhir=968) 107 meq/L 98-107 CO2 (BEAKER) (test dfsf=735) 24 meq/L 22-29 BLOOD UREA NITROGEN (BEAKER) (test sroa=909) 31 mg/dL 7-21 CREATININE (BEAKER) (test msan=697) 1.13 mg/dL 0.57-1.25 GLUCOSE RANDOM (BEAKER) (test cgas=036) 85 mg/dL 70-105 CALCIUM (BEAKER) (test pwzh=398) 9.0 mg/dL 8.4-10.2 EGFR (BEAKER) (test upcm=8061) 62 mL/min/1.73 sq m ESTIMATED GFR IS NOT ACCURATE CREATININE CLEARANCE IN PREDICTING GLOMERULAR FILTRATION RATE. ESTIMATED GFR IS NOT APPLICABLE FOR DIALYSIS PATIENTS. PROTHROMBIN TIME/[id number] 07:15:00* Test Item Value Reference Range Comments PROTIME (BEAKER) (test ximu=601) 19.8 seconds 11.9-14.2 INR (BEAKER) (test upsd=875) 1.8 <=5.9 Effective 11/28/2018: PT Reference Range ChangeNew: 11.9-14.2 Previous: 11.7-14. 7RECOMMENDED COUMADIN/WARFARIN INR THERAPY RANGESSTANDARD DOSE: 2.0-3.0 Include s: PROPHYLAXIS for venous thrombosis, systemic embolization; TREATMENT for venou s thrombosis and/or pulmonary embolus.HIGH RISK: Target INR is 2.5-3.5 for patie nts wiht mechanical heart valves.CBC W/PLT COUNT & AUTO [id number] 07:05:00* Test Item Value Reference Range Comments WHITE BLOOD CELL COUNT (BEAKER) (test zhbg=403) 9.0 K/ L 3.5-10.5 RED BLOOD CELL COUNT (BEAKER) (test kchj=880) 4.07 M/ L 4.63-6.08 HEMOGLOBIN (BEAKER) (test kneq=070) 10.0 GM/DL 13.7-17.5 HEMATOCRIT (BEAKER) (test pxgr=697) 33.3 % 40.1-51.0 MEAN CORPUSCULAR VOLUME (BEAKER) (test eblt=324) 81.8 fL 79.0-92.2 MEAN CORPUSCULAR HEMOGLOBIN (BEAKER) (test uzhl=642) 24.6 pg 25.7-32.2 MEAN CORPUSCULAR HEMOGLOBIN CONC (BEAKER) (test ezvc=611) 30.0 GM/DL 32.3-36.5 RED CELL DISTRIBUTION WIDTH (BEAKER) (test chiq=756) 20.2 % 11.6-14.4 PLATELET COUNT (BEAKER) (test hgfv=135) 332 K/CU MM 150-450 MEAN PLATELET VOLUME (BEAKER) (test rqqp=445) 10.4 fL 9.4-12.4 NUCLEATED RED BLOOD CELLS (BEAKER) (test wfpw=590) 0 /100 WBC 0-0 NEUTROPHILS RELATIVE PERCENT (BEAKER) (test dgdd=647) 59 % LYMPHOCYTES RELATIVE PERCENT (BEAKER) (test bbmz=558) 22 % MONOCYTES RELATIVE PERCENT (BEAKER) (test qsmq=984) 9 % EOSINOPHILS RELATIVE PERCENT (BEAKER) (test qltm=311) 8 % BASOPHILS RELATIVE PERCENT (BEAKER) (test coab=026) 1 % NEUTROPHILS ABSOLUTE COUNT (BEAKER) (test smkh=288) 5.31 K/ L 1.78-5.38 LYMPHOCYTES ABSOLUTE COUNT (BEAKER) (test czug=109) 1.99 K/ L 1.32-3.57 MONOCYTES ABSOLUTE COUNT (BEAKER) (test wmsf=493) 0.85 K/ L 0.30-0.82 EOSINOPHILS ABSOLUTE COUNT (BEAKER) (test larn=135) 0.70 K/ L 0.04-0.54 BASOPHILS ABSOLUTE COUNT (BEAKER) (test xdst=178) 0.13 K/ L 0.01-0.08 IMMATURE GRANULOCYTES-RELATIVE PERCENT (BEAKER) (test nubj=0683) 0 % 0-1 RAD, CHEST, PA OR AP, 1 [id number] 06:25:00Reason for exam:->EVAL FOR PULM EDEMAFINAL REPORT RAD, CHEST, PA OR AP, 1 VIEW CLINICAL HISTORY: EVAL FOR PULM EDEMA TECHNIQUE: Single view of the chest. COMPARISON: December 14, 2018 IMPRESSION: There is artifact producing linear edge over the right lung apex, similar to prior exam. Support devices and postoperative changes are stable. No pulmonary edema. No pneumothorax. There are no focal infiltrates or significant effusions. Blunted left costophrenic angle, likely atelectasis or scarring. The cardiomediastinal silhouette is magnified by technique. The osseous structures appear stable. Signed: Leif Holland MDReport Verified Date/Time: 12/18/2018 06:25:42 , CHEST, 1 VIEW, NON [id number] 09:41:00 Reason for exam:->LVADReason for exam:->CHEST PAINFINAL REPORT TECHNIQUE: Frontal view of the chest. INDICATION: 83-year-old man with chest pain. COMPARISON: Chest radiograph 11/01/2018. FINDINGS: LINES/TUBES: Unchanged implanted cardiac device and left ventricular assist device. LUNGS: No consolidation or pulmonary edema. PLEURA: No pneumothorax or significant pleural effusion. HEART AND MEDIASTINUM: Unchanged prominent cardiac silhouette. Atherosclerotic calcifications in the thoracic aorta. SOFT TISSUES AND BONES: Unremarkable. IMPRESSION:No acute cardiopulmonary abnormalities. Signed: Nikkie Capps MDReport Verified Date/Time: 12/14/2018 09:41:11 Reading Location: [facility] Radiology Reading Room ONIN [id number] 08:23:00* Test Item Value Reference Range Comments TROPONIN I (BEAKER) (test mtxf=591) 0.03 ng/mL 0.00-0.03 Troponin I (TnI) levels must be interpreted in the context of the presenting sym ptoms and the clinical findings. Elevated TnI levels indicate myocardial damage, but are not specific for ischemic heart disease. Elevated TnI levels are seen in patients with other cardiac conditions (including myocarditis and congestive h eart failure), and slight TnI elevations occur in patients with other conditions , including sepsis, renal failure, acidosis, acute neurological disease, and per sistent tachyarrhythmia.B-TYPE NATRIURETIC FACTOR (BNP)2018-12-14 08:22:00* Test Item Value Reference Range Comments B-TYPE NATRIURETIC PEPTIDE (BEAKER) (test xwea=460) 514 pg/mL 0-100 [id number] 08:15:00* Test Item Value Reference Range Comments MAGNESIUM (BEAKER) (test tmfb=013) 2.0 mg/dL 1.6-2.6 BASIC METABOLIC [id number] 08:15:00* Test Item Value Reference Range Comments SODIUM (BEAKER) (test pzzc=895) 138 meq/L 136-145 POTASSIUM (BEAKER) (test cfdz=826) 5.2 meq/L 3.5-5.1 CHLORIDE (BEAKER) (test uqeb=547) 108 meq/L 98-107 CO2 (BEAKER) (test iugh=369) 24 meq/L 22-29 BLOOD UREA NITROGEN (BEAKER) (test pant=317) 40 mg/dL 7-21 CREATININE (BEAKER) (test sool=522) 1.28 mg/dL 0.57-1.25 GLUCOSE RANDOM (BEAKER) (test less=734) 86 mg/dL 70-105 CALCIUM (BEAKER) (test bmhk=491) 9.3 mg/dL 8.4-10.2 EGFR (BEAKER) (test opjd=3971) 54 mL/min/1.73 sq m ESTIMATED GFR IS NOT ACCURATE CREATININE CLEARANCE IN PREDICTING GLOMERULAR FILTRATION RATE. ESTIMATED GFR IS NOT APPLICABLE FOR DIALYSIS PATIENTS. CREATINE KINASE (CK)2018-12-14 08:15:00* Test Item Value Reference Range Comments CREATINE KINASE TOTAL (BEAKER) (test ogzt=705) 25 U/L 29-200 LACTATE DEHYDROGENASE (LDH)2018-12-14 08:15:00* Test Item Value Reference Range Comments LACTATE DEHYDROGENASE (BEAKER) (test hcue=543) 225 U/L 125-220 PT/[id number] 08:06:00* Test Item Value Reference Range Comments PROTIME (BEAKER) (test byqk=322) 18.8 seconds 11.9-14.2 INR (BEAKER) (test xwto=038) 1.7 <=5.9 PARTIAL THROMBOPLASTIN TIME (BEAKER) (test qesx=389) 43.1 seconds 22.5-36.0 Effective 11/28/2018: PT Reference Range ChangeNew: 11.9-14.2 Previous: 11.7-14. 7RECOMMENDED COUMADIN/WARFARIN INR THERAPY RANGESSTANDARD DOSE: 2.0-3.0 Include s: PROPHYLAXIS for venous thrombosis, systemic embolization; TREATMENT for venou s thrombosis and/or pulmonary embolus.HIGH RISK: Target INR is 2.5-3.5 for patie nts wiht mechanical heart valves.CBC W/PLT COUNT & AUTO [id number] 08:04:00* Test Item Value Reference Range Comments WHITE BLOOD CELL COUNT (BEAKER) (test epme=261) 8.7 K/ L 3.5-10.5 RED BLOOD CELL COUNT (BEAKER) (test ixub=679) 4.35 M/ L 4.63-6.08 HEMOGLOBIN (BEAKER) (test oxtm=146) 10.7 GM/DL 13.7-17.5 HEMATOCRIT (BEAKER) (test liku=037) 35.6 % 40.1-51.0 MEAN CORPUSCULAR VOLUME (BEAKER) (test tyvc=277) 81.8 fL 79.0-92.2 MEAN CORPUSCULAR HEMOGLOBIN (BEAKER) (test xlqv=291) 24.6 pg 25.7-32.2 MEAN CORPUSCULAR HEMOGLOBIN CONC (BEAKER) (test esla=200) 30.1 GM/DL 32.3-36.5 RED CELL DISTRIBUTION WIDTH (BEAKER) (test dtwf=895) 20.1 % 11.6-14.4 PLATELET COUNT (BEAKER) (test yslx=602) 344 K/CU MM 150-450 MEAN PLATELET VOLUME (BEAKER) (test nxcd=156) 10.4 fL 9.4-12.4 NUCLEATED RED BLOOD CELLS (BEAKER) (test wuxa=004) 0 /100 WBC 0-0 NEUTROPHILS RELATIVE PERCENT (BEAKER) (test pfxx=915) 58 % LYMPHOCYTES RELATIVE PERCENT (BEAKER) (test niyc=035) 21 % MONOCYTES RELATIVE PERCENT (BEAKER) (test ljiw=983) 10 % EOSINOPHILS RELATIVE PERCENT (BEAKER) (test lxtv=793) 9 % BASOPHILS RELATIVE PERCENT (BEAKER) (test jsgz=495) 2 % NEUTROPHILS ABSOLUTE COUNT (BEAKER) (test oazp=434) 5.01 K/ L 1.78-5.38 LYMPHOCYTES ABSOLUTE COUNT (BEAKER) (test zcww=434) 1.84 K/ L 1.32-3.57 MONOCYTES ABSOLUTE COUNT (BEAKER) (test ezmq=106) 0.90 K/ L 0.30-0.82 EOSINOPHILS ABSOLUTE COUNT (BEAKER) (test skgw=977) 0.76 K/ L 0.04-0.54 BASOPHILS ABSOLUTE COUNT (BEAKER) (test gwbc=592) 0.13 K/ L 0.01-0.08 IMMATURE GRANULOCYTES-RELATIVE PERCENT (BEAKER) (test bgyn=6262) 1 % 0-1 [id number] 11:21:00* Test Item Value Reference Range Comments MAGNESIUM (BEAKER) (test mwdu=809) 1.9 mg/dL 1.6-2.6 BASIC METABOLIC [id number] 11:21:00* Test Item Value Reference Range Comments SODIUM (BEAKER) (test xrrv=887) 140 meq/L 136-145 POTASSIUM (BEAKER) (test iquh=787) 4.5 meq/L 3.5-5.1 CHLORIDE (BEAKER) (test szfp=784) 111 meq/L 98-107 CO2 (BEAKER) (test uegk=586) 25 meq/L 22-29 BLOOD UREA NITROGEN (BEAKER) (test qqyc=863) 26 mg/dL 7-21 CREATININE (BEAKER) (test micx=281) 1.22 mg/dL 0.57-1.25 GLUCOSE RANDOM (BEAKER) (test lauw=075) 101 mg/dL 70-105 CALCIUM (BEAKER) (test narh=099) 9.0 mg/dL 8.4-10.2 EGFR (BEAKER) (test zjes=9161) 57 mL/min/1.73 sq m ESTIMATED GFR IS NOT ACCURATE CREATININE CLEARANCE IN PREDICTING GLOMERULAR FILTRATION RATE. ESTIMATED GFR IS NOT APPLICABLE FOR DIALYSIS PATIENTS. HEPATIC FUNCTION [id number] 11:21:00* Test Item Value Reference Range Comments TOTAL PROTEIN (BEAKER) (test eftp=634) 6.6 gm/dL 6.0-8.3 ALBUMIN (BEAKER) (test uxih=8407) 3.6 g/dL 3.5-5.0 BILIRUBIN TOTAL (BEAKER) (test kycp=188) 1.2 mg/dL 0.2-1.2 BILIRUBIN DIRECT (BEAKER) (test kjzq=926) 0.7 mg/dL 0.1-0.5 ALKALINE PHOSPHATASE (BEAKER) (test yrqm=785) 120 U/L 40-150 AST (SGOT) (BEAKER) (test mnwp=398) 23 U/L 5-34 ALT (SGPT) (BEAKER) (test hyns=389) 14 U/L 6-55 LACTATE DEHYDROGENASE (LDH)2018-11-30 11:21:00* Test Item Value Reference Range Comments LACTATE DEHYDROGENASE (BEAKER) (test ayet=554) 255 U/L 125-220 PROTHROMBIN [id number] 11:18:00* Test Item Value Reference Range Comments PROTIME (BEAKER) (test bpmq=271) 15.5 seconds 11.9-14.2 INR (BEAKER) (test liie=842) 1.3 <=5.9 Effective 11/28/2018: PT Reference Range ChangeNew: 11.9-14.2 Previous: 11.7-14. 7RECOMMENDED COUMADIN/WARFARIN INR THERAPY RANGESSTANDARD DOSE: 2.0-3.0 Include s: PROPHYLAXIS for venous thrombosis, systemic embolization; TREATMENT for venou s thrombosis and/or pulmonary embolus.HIGH RISK: Target INR is 2.5-3.5 for patie nts wiht mechanical heart valves.CBC W/PLT COUNT & AUTO [id number] 11:12:00* Test Item Value Reference Range Comments WHITE BLOOD CELL COUNT (BEAKER) (test kfjs=909) 7.5 K/ L 3.5-10.5 RED BLOOD CELL COUNT (BEAKER) (test hbsk=357) 4.13 M/ L 4.63-6.08 HEMOGLOBIN (BEAKER) (test iaow=567) 10.2 GM/DL 13.7-17.5 HEMATOCRIT (BEAKER) (test fjwx=303) 34.5 % 40.1-51.0 MEAN CORPUSCULAR VOLUME (BEAKER) (test bsur=752) 83.5 fL 79.0-92.2 MEAN CORPUSCULAR HEMOGLOBIN (BEAKER) (test unfd=208) 24.7 pg 25.7-32.2 MEAN CORPUSCULAR HEMOGLOBIN CONC (BEAKER) (test eowx=439) 29.6 GM/DL 32.3-36.5 RED CELL DISTRIBUTION WIDTH (BEAKER) (test loch=002) 19.4 % 11.6-14.4 PLATELET COUNT (BEAKER) (test jhpg=606) 231 K/CU MM 150-450 MEAN PLATELET VOLUME (BEAKER) (test mzko=329) 10.4 fL 9.4-12.4 NUCLEATED RED BLOOD CELLS (BEAKER) (test jpvz=713) 0 /100 WBC 0-0 NEUTROPHILS RELATIVE PERCENT (BEAKER) (test utkh=823) 59 % LYMPHOCYTES RELATIVE PERCENT (BEAKER) (test sstx=865) 20 % MONOCYTES RELATIVE PERCENT (BEAKER) (test adex=161) 9 % EOSINOPHILS RELATIVE PERCENT (BEAKER) (test dqnh=354) 11 % BASOPHILS RELATIVE PERCENT (BEAKER) (test pnqy=790) 1 % NEUTROPHILS ABSOLUTE COUNT (BEAKER) (test rtaa=536) 4.44 K/ L 1.78-5.38 LYMPHOCYTES ABSOLUTE COUNT (BEAKER) (test ingi=772) 1.51 K/ L 1.32-3.57 MONOCYTES ABSOLUTE COUNT (BEAKER) (test ynwi=930) 0.66 K/ L 0.30-0.82 EOSINOPHILS ABSOLUTE COUNT (BEAKER) (test unlh=528) 0.82 K/ L 0.04-0.54 BASOPHILS ABSOLUTE COUNT (BEAKER) (test jotm=060) 0.09 K/ L 0.01-0.08 IMMATURE GRANULOCYTES-RELATIVE PERCENT (BEAKER) (test yxua=0681) 0 % 0-1 LACTATE DEHYDROGENASE (LDH)2018-11-09 11:46:00* Test Item Value Reference Range Comments LACTATE DEHYDROGENASE (BEAKER) (test bipo=400) 323 U/L 125-220 Specimen slightly hemolyzed [id number] 11:41:00* Test Item Value Reference Range Comments MAGNESIUM (BEAKER) (test oizv=852) 2.1 mg/dL 1.6-2.6 Specimen slightly hemolyzed BASIC METABOLIC [id number] 11:41:00* Test Item Value Reference Range Comments SODIUM (BEAKER) (test sefs=066) 139 meq/L 136-145 POTASSIUM (BEAKER) (test yoor=787) 5.1 meq/L 3.5-5.1 Specimen slightly hemolyzed CHLORIDE (BEAKER) (test eltw=169) 108 meq/L 98-107 CO2 (BEAKER) (test axdo=647) 27 meq/L 22-29 BLOOD UREA NITROGEN (BEAKER) (test emmr=034) 32 mg/dL 7-21 CREATININE (BEAKER) (test fwsa=462) 1.26 mg/dL 0.57-1.25 Specimen slightly hemolyzed GLUCOSE RANDOM (BEAKER) (test sqqr=716) 99 mg/dL 70-105 CALCIUM (BEAKER) (test oaus=716) 9.1 mg/dL 8.4-10.2 EGFR (BEAKER) (test ybjw=4435) 55 mL/min/1.73 sq m ESTIMATED GFR IS NOT ACCURATE CREATININE CLEARANCE IN PREDICTING GLOMERULAR FILTRATION RATE. ESTIMATED GFR IS NOT APPLICABLE FOR DIALYSIS PATIENTS. HEPATIC FUNCTION [id number] 11:41:00* Test Item Value Reference Range Comments TOTAL PROTEIN (BEAKER) (test mtkp=804) 6.8 gm/dL 6.0-8.3 Specimen slightly hemolyzed ALBUMIN (BEAKER) (test zmoj=8316) 3.6 g/dL 3.5-5.0 Specimen slightly hemolyzed BILIRUBIN TOTAL (BEAKER) (test mryh=833) 1.1 mg/dL 0.2-1.2 Specimen slightly hemolyzed BILIRUBIN DIRECT (BEAKER) (test azax=356) 0.6 mg/dL 0.1-0.5 Specimen slightly hemolyzed ALKALINE PHOSPHATASE (BEAKER) (test xugo=241) 121 U/L 40-150 AST (SGOT) (BEAKER) (test pkfh=652) 27 U/L 5-34 Specimen slightly hemolyzed ALT (SGPT) (BEAKER) (test euwh=717) 15 U/L 6-55 Specimen slightly hemolyzed PROTHROMBIN [id number] 11:32:00* Test Item Value Reference Range Comments PROTIME (BEAKER) (test hyri=857) 20.5 seconds 11.7-14.7 INR (BEAKER) (test ohjw=263) 1.9 <=5.9 RECOMMENDED COUMADIN/WARFARIN INR THERAPY RANGESSTANDARD DOSE: 2.0 - 3.0 Inclu navid: PROPHYLAXIS for venous thrombosis, systemic embolization; TREATMENT for dayna ous thrombosis and/or pulmonary embolus.HIGH RISK: Target INR is 2.5-3.5 for pat ients with mechanical heart valves.CBC W/PLT COUNT & AUTO [id number] 11:21:00* Test Item Value Reference Range Comments WHITE BLOOD CELL COUNT (BEAKER) (test fjrh=099) 11.4 K/ L 3.5-10.5 RED BLOOD CELL COUNT (BEAKER) (test fjxc=545) 3.92 M/ L 4.63-6.08 HEMOGLOBIN (BEAKER) (test icme=368) 9.8 GM/DL 13.7-17.5 HEMATOCRIT (BEAKER) (test uyyv=563) 32.4 % 40.1-51.0 MEAN CORPUSCULAR VOLUME (BEAKER) (test ijjj=331) 82.7 fL 79.0-92.2 MEAN CORPUSCULAR HEMOGLOBIN (BEAKER) (test qcfa=071) 25.0 pg 25.7-32.2 MEAN CORPUSCULAR HEMOGLOBIN CONC (BEAKER) (test umhn=196) 30.2 GM/DL 32.3-36.5 RED CELL DISTRIBUTION WIDTH (BEAKER) (test kgwf=450) 17.4 % 11.6-14.4 PLATELET COUNT (BEAKER) (test oxgi=745) 261 K/CU MM 150-450 MEAN PLATELET VOLUME (BEAKER) (test bsqi=736) 10.4 fL 9.4-12.4 NUCLEATED RED BLOOD CELLS (BEAKER) (test mwgu=956) 0 /100 WBC 0-0 NEUTROPHILS RELATIVE PERCENT (BEAKER) (test vikr=401) 68 % LYMPHOCYTES RELATIVE PERCENT (BEAKER) (test eaid=598) 14 % MONOCYTES RELATIVE PERCENT (BEAKER) (test ukhq=273) 9 % EOSINOPHILS RELATIVE PERCENT (BEAKER) (test zwvr=788) 6 % BASOPHILS RELATIVE PERCENT (BEAKER) (test ockn=581) 1 % NEUTROPHILS ABSOLUTE COUNT (BEAKER) (test hfzt=264) 7.81 K/ L 1.78-5.38 LYMPHOCYTES ABSOLUTE COUNT (BEAKER) (test udvj=157) 1.65 K/ L 1.32-3.57 MONOCYTES ABSOLUTE COUNT (BEAKER) (test bfrs=328) 1.08 K/ L 0.30-0.82 EOSINOPHILS ABSOLUTE COUNT (BEAKER) (test hudc=014) 0.67 K/ L 0.04-0.54 BASOPHILS ABSOLUTE COUNT (BEAKER) (test lduk=749) 0.07 K/ L 0.01-0.08 IMMATURE GRANULOCYTES-RELATIVE PERCENT (BEAKER) (test jfmm=4017) 1 % 0-1 WOUND CULTURE + GRAM [id number] 10:22:00* Test Item Value Reference Range Comments CULTURE (BEAKER) (test moea=6439) No growth GRAM STAIN RESULT (BEAKER) (test ppdk=4272) No WBCs GRAM STAIN RESULT (BEAKER) (test wlxb=58276) No organisms seen CBC W/PLT COUNT & AUTO [id number] 05:40:00* Test Item Value Reference Range Comments WHITE BLOOD CELL COUNT (BEAKER) (test cwkd=654) 7.5 K/ L 3.5-10.5 RED BLOOD CELL COUNT (BEAKER) (test ncxw=708) 3.61 M/ L 4.63-6.08 HEMOGLOBIN (BEAKER) (test vcur=746) 9.0 GM/DL 13.7-17.5 HEMATOCRIT (BEAKER) (test psxp=190) 29.5 % 40.1-51.0 MEAN CORPUSCULAR VOLUME (BEAKER) (test xpfq=290) 81.7 fL 79.0-92.2 MEAN CORPUSCULAR HEMOGLOBIN (BEAKER) (test paku=152) 24.9 pg 25.7-32.2 MEAN CORPUSCULAR HEMOGLOBIN CONC (BEAKER) (test vebj=071) 30.5 GM/DL 32.3-36.5 RED CELL DISTRIBUTION WIDTH (BEAKER) (test oiuj=790) 16.4 % 11.6-14.4 PLATELET COUNT (BEAKER) (test ejrb=843) 220 K/CU MM 150-450 MEAN PLATELET VOLUME (BEAKER) (test juep=193) 10.8 fL 9.4-12.4 NUCLEATED RED BLOOD CELLS (BEAKER) (test qzos=991) 0 /100 WBC 0-0 NEUTROPHILS RELATIVE PERCENT (BEAKER) (test xzdu=928) 90 % LYMPHOCYTES RELATIVE PERCENT (BEAKER) (test zyrm=164) 8 % MONOCYTES RELATIVE PERCENT (BEAKER) (test jzqw=890) 1 % EOSINOPHILS RELATIVE PERCENT (BEAKER) (test atuy=373) 0 % BASOPHILS RELATIVE PERCENT (BEAKER) (test ilro=135) 0 % NEUTROPHILS ABSOLUTE COUNT (BEAKER) (test frsw=690) 6.75 K/ L 1.78-5.38 LYMPHOCYTES ABSOLUTE COUNT (BEAKER) (test uzxv=352) 0.63 K/ L 1.32-3.57 MONOCYTES ABSOLUTE COUNT (BEAKER) (test kljf=005) 0.07 K/ L 0.30-0.82 EOSINOPHILS ABSOLUTE COUNT (BEAKER) (test seuo=506) 0.00 K/ L 0.04-0.54 BASOPHILS ABSOLUTE COUNT (BEAKER) (test vfxc=403) 0.01 K/ L 0.01-0.08 IMMATURE GRANULOCYTES-RELATIVE PERCENT (BEAKER) (test kmng=1121) 0 % 0-1 [id number] 05:21:00* Test Item Value Reference Range Comments MAGNESIUM (BEAKER) (test evbo=059) 1.7 mg/dL 1.6-2.6 BASIC METABOLIC [id number] 05:21:00* Test Item Value Reference Range Comments SODIUM (BEAKER) (test qagt=155) 136 meq/L 136-145 POTASSIUM (BEAKER) (test oeln=447) 4.3 meq/L 3.5-5.1 CHLORIDE (BEAKER) (test xmmi=876) 105 meq/L 98-107 CO2 (BEAKER) (test gois=614) 24 meq/L 22-29 BLOOD UREA NITROGEN (BEAKER) (test buuz=108) 29 mg/dL 7-21 CREATININE (BEAKER) (test yknm=621) 1.16 mg/dL 0.57-1.25 GLUCOSE RANDOM (BEAKER) (test afqd=965) 144 mg/dL 70-105 CALCIUM (BEAKER) (test buln=143) 8.7 mg/dL 8.4-10.2 EGFR (BEAKER) (test ghhy=5368) 60 mL/min/1.73 sq m ESTIMATED GFR IS NOT ACCURATE CREATININE CLEARANCE IN PREDICTING GLOMERULAR FILTRATION RATE. ESTIMATED GFR IS NOT APPLICABLE FOR DIALYSIS PATIENTS. PROTHROMBIN [id number] 05:12:00* Test Item Value Reference Range Comments PROTIME (BEAKER) (test qitl=960) 22.3 seconds 11.7-14.7 INR (BEAKER) (test hayh=741) 2.1 <=5.9 RECOMMENDED COUMADIN/WARFARIN INR THERAPY RANGESSTANDARD DOSE: 2.0 - 3.0 Inclu navid: PROPHYLAXIS for venous thrombosis, systemic embolization; TREATMENT for dayna ous thrombosis and/or pulmonary embolus.HIGH RISK: Target INR is 2.5-3.5 for pat ients with mechanical heart valves.RAD, CHEST, 1 VIEW, NON [id number] 08:45:00Reason for exam:->wheezeShould this be performed at the bedside?->Yes FINAL REPORT Portable chest. CLINICAL HISTORY: wheeze. CO MPARISON STUDY: October 26, 2018. FINDINGS: The cardiac silhouette is enlarged. St ernotomy wires are seen. The pulmonary parenchyma demonstrates mild interstitial markings. The support lines and tubes are unchanged. No pneumothorax is seen. D egenerative changes are noted. IMPRESSION: No significant change. Signed: Percy Koo MDReport Verified Date/Time: 11/01/2018 08:45:22 Reading Location: [facility] Radiology Reading Room ONIN [id number] 06:31:00* Test Item Value Reference Range Comments TROPONIN I (BEAKER) (test nmtl=240) 0.05 ng/mL 0.00-0.03 Troponin I (TnI) levels must be interpreted in the context of the presenting sym ptoms and the clinical findings. Elevated TnI levels indicate myocardial damage, but are not specific for ischemic heart disease. Elevated TnI levels are seen in patients with other cardiac conditions (including myocarditis and congestive h eart failure), and slight TnI elevations occur in patients with other conditions , including sepsis, renal failure, acidosis, acute neurological disease, and per sistent tachyarrhythmia.B-TYPE NATRIURETIC FACTOR (BNP)2018-11-01 06:30:00* Test Item Value Reference Range Comments B-TYPE NATRIURETIC PEPTIDE (BEAKER) (test kdfo=689) 922 pg/mL 0-100 [id number] 06:25:00* Test Item Value Reference Range Comments MAGNESIUM (BEAKER) (test kwuh=947) 1.6 mg/dL 1.6-2.6 BASIC METABOLIC [id number] 06:25:00* Test Item Value Reference Range Comments SODIUM (BEAKER) (test xbmx=182) 137 meq/L 136-145 POTASSIUM (BEAKER) (test zvqe=310) 3.9 meq/L 3.5-5.1 CHLORIDE (BEAKER) (test btap=248) 104 meq/L 98-107 CO2 (BEAKER) (test cdxg=881) 25 meq/L 22-29 BLOOD UREA NITROGEN (BEAKER) (test fezo=867) 36 mg/dL 7-21 CREATININE (BEAKER) (test yjqe=637) 1.22 mg/dL 0.57-1.25 GLUCOSE RANDOM (BEAKER) (test zgxj=934) 93 mg/dL 70-105 CALCIUM (BEAKER) (test ezwu=324) 8.7 mg/dL 8.4-10.2 EGFR (BEAKER) (test zqqd=3411) 57 mL/min/1.73 sq m ESTIMATED GFR IS NOT ACCURATE CREATININE CLEARANCE IN PREDICTING GLOMERULAR FILTRATION RATE. ESTIMATED GFR IS NOT APPLICABLE FOR DIALYSIS PATIENTS. CREATINE KINASE (CK)2018-11-01 06:25:00* Test Item Value Reference Range Comments CREATINE KINASE TOTAL (BEAKER) (test rwfv=117) 73 U/L 29-200 LACTATE DEHYDROGENASE (LDH)2018-11-01 06:25:00* Test Item Value Reference Range Comments LACTATE DEHYDROGENASE (BEAKER) (test dsok=460) 314 U/L 125-220 [id number] 06:19:00* Test Item Value Reference Range Comments PROTIME (BEAKER) (test ldep=196) 20.5 seconds 11.7-14.7 INR (BEAKER) (test ztyo=969) 1.9 <=5.9 PARTIAL THROMBOPLASTIN TIME (BEAKER) (test opdy=281) 56.1 seconds 22.5-36.0 RECOMMENDED COUMADIN/WARFARIN INR THERAPY RANGESSTANDARD DOSE: 2.0 - 3.0 Inclu navid: PROPHYLAXIS for venous thrombosis, systemic embolization; TREATMENT for dayna ous thrombosis and/or pulmonary embolus.HIGH RISK: Target INR is 2.5-3.5 for pat ients with mechanical heart valves.CBC W/PLT COUNT & AUTO [id number] 06:13:00* Test Item Value Reference Range Comments WHITE BLOOD CELL COUNT (BEAKER) (test bavg=703) 8.4 K/ L 3.5-10.5 RED BLOOD CELL COUNT (BEAKER) (test moke=169) 3.80 M/ L 4.63-6.08 HEMOGLOBIN (BEAKER) (test hsbv=109) 9.3 GM/DL 13.7-17.5 HEMATOCRIT (BEAKER) (test kgkq=280) 31.8 % 40.1-51.0 MEAN CORPUSCULAR VOLUME (BEAKER) (test klya=031) 83.7 fL 79.0-92.2 MEAN CORPUSCULAR HEMOGLOBIN (BEAKER) (test mgiz=128) 24.5 pg 25.7-32.2 MEAN CORPUSCULAR HEMOGLOBIN CONC (BEAKER) (test ekjp=721) 29.2 GM/DL 32.3-36.5 RED CELL DISTRIBUTION WIDTH (BEAKER) (test xyat=449) 16.6 % 11.6-14.4 PLATELET COUNT (BEAKER) (test qhjw=605) 221 K/CU MM 150-450 MEAN PLATELET VOLUME (BEAKER) (test cmcd=065) 10.6 fL 9.4-12.4 NUCLEATED RED BLOOD CELLS (BEAKER) (test zavb=993) 0 /100 WBC 0-0 NEUTROPHILS RELATIVE PERCENT (BEAKER) (test iwir=309) 60 % LYMPHOCYTES RELATIVE PERCENT (BEAKER) (test lsld=498) 17 % MONOCYTES RELATIVE PERCENT (BEAKER) (test zpir=606) 14 % EOSINOPHILS RELATIVE PERCENT (BEAKER) (test yxgu=643) 8 % BASOPHILS RELATIVE PERCENT (BEAKER) (test ggej=308) 1 % NEUTROPHILS ABSOLUTE COUNT (BEAKER) (test olyo=373) 5.00 K/ L 1.78-5.38 LYMPHOCYTES ABSOLUTE COUNT (BEAKER) (test ppnc=607) 1.44 K/ L 1.32-3.57 MONOCYTES ABSOLUTE COUNT (BEAKER) (test ynyl=843) 1.14 K/ L 0.30-0.82 EOSINOPHILS ABSOLUTE COUNT (BEAKER) (test llxd=582) 0.70 K/ L 0.04-0.54 BASOPHILS ABSOLUTE COUNT (BEAKER) (test hdtk=557) 0.08 K/ L 0.01-0.08 IMMATURE GRANULOCYTES-RELATIVE PERCENT (BEAKER) (test fhlq=7885) 1 % 0-1 CBC W/PLT COUNT & AUTO [id number] 05:50:00* Test Item Value Reference Range Comments WHITE BLOOD CELL COUNT (BEAKER) (test glmj=812) 7.7 K/ L 3.5-10.5 RED BLOOD CELL COUNT (BEAKER) (test racr=733) 3.58 M/ L 4.63-6.08 HEMOGLOBIN (BEAKER) (test kzbm=678) 9.0 GM/DL 13.7-17.5 HEMATOCRIT (BEAKER) (test eaad=414) 29.6 % 40.1-51.0 MEAN CORPUSCULAR VOLUME (BEAKER) (test bxnl=351) 82.7 fL 79.0-92.2 MEAN CORPUSCULAR HEMOGLOBIN (BEAKER) (test izmr=995) 25.1 pg 25.7-32.2 MEAN CORPUSCULAR HEMOGLOBIN CONC (BEAKER) (test vjzt=841) 30.4 GM/DL 32.3-36.5 RED CELL DISTRIBUTION WIDTH (BEAKER) (test rbwk=912) 16.5 % 11.6-14.4 PLATELET COUNT (BEAKER) (test fpnj=962) 190 K/CU MM 150-450 MEAN PLATELET VOLUME (BEAKER) (test vvdy=103) 11.2 fL 9.4-12.4 NUCLEATED RED BLOOD CELLS (BEAKER) (test bnla=227) 0 /100 WBC 0-0 NEUTROPHILS RELATIVE PERCENT (BEAKER) (test ozgp=082) 60 % LYMPHOCYTES RELATIVE PERCENT (BEAKER) (test bhlz=665) 15 % MONOCYTES RELATIVE PERCENT (BEAKER) (test pcdt=649) 18 % EOSINOPHILS RELATIVE PERCENT (BEAKER) (test gyak=548) 7 % BASOPHILS RELATIVE PERCENT (BEAKER) (test krtq=731) 1 % NEUTROPHILS ABSOLUTE COUNT (BEAKER) (test qhod=736) 4.58 K/ L 1.78-5.38 LYMPHOCYTES ABSOLUTE COUNT (BEAKER) (test xgvh=840) 1.11 K/ L 1.32-3.57 MONOCYTES ABSOLUTE COUNT (BEAKER) (test qnze=012) 1.40 K/ L 0.30-0.82 EOSINOPHILS ABSOLUTE COUNT (BEAKER) (test tyhp=297) 0.50 K/ L 0.04-0.54 BASOPHILS ABSOLUTE COUNT (BEAKER) (test ayku=952) 0.07 K/ L 0.01-0.08 IMMATURE GRANULOCYTES-RELATIVE PERCENT (BEAKER) (test cbpw=9810) 0 % 0-1 LACTATE DEHYDROGENASE (LDH)2018-10-31 05:37:00* Test Item Value Reference Range Comments LACTATE DEHYDROGENASE (BEAKER) (test ztnl=285) 244 U/L 125-220 BASIC METABOLIC [id number] 05:37:00* Test Item Value Reference Range Comments SODIUM (BEAKER) (test ubfz=702) 137 meq/L 136-145 POTASSIUM (BEAKER) (test leus=005) 3.9 meq/L 3.5-5.1 CHLORIDE (BEAKER) (test zfrs=291) 104 meq/L 98-107 CO2 (BEAKER) (test nnxy=463) 24 meq/L 22-29 BLOOD UREA NITROGEN (BEAKER) (test lhzo=698) 33 mg/dL 7-21 CREATININE (BEAKER) (test ohok=289) 1.31 mg/dL 0.57-1.25 GLUCOSE RANDOM (BEAKER) (test fljs=637) 81 mg/dL 70-105 CALCIUM (BEAKER) (test xdhy=873) 8.5 mg/dL 8.4-10.2 EGFR (BEAKER) (test tpkb=3445) 53 mL/min/1.73 sq m ESTIMATED GFR IS NOT ACCURATE CREATININE CLEARANCE IN PREDICTING GLOMERULAR FILTRATION RATE. ESTIMATED GFR IS NOT APPLICABLE FOR DIALYSIS PATIENTS. PROTHROMBIN [id number] 05:25:00* Test Item Value Reference Range Comments PROTIME (BEAKER) (test srmq=594) 24.2 seconds 11.7-14.7 INR (BEAKER) (test yged=590) 2.3 <=5.9 RECOMMENDED COUMADIN/WARFARIN INR THERAPY RANGESSTANDARD DOSE: 2.0 - 3.0 Inclu navid: PROPHYLAXIS for venous thrombosis, systemic embolization; TREATMENT for dayna ous thrombosis and/or pulmonary embolus.HIGH RISK: Target INR is 2.5-3.5 for pat ients with mechanical heart valves.While on warfarin.RESPIRATORY PANEL [facility] 2018-10-30 11:00:00* Test Item Value Reference Range Comments HUMAN METAPNEUMOVIRUS (BEAKER) (test wkqe=1616) Not detected Not detected, Equivocal RHINOVIRUS (BEAKER) (test cvoz=3570) Detected Not detected, Equivocal Assay is not able differentiate between Human Rhinovirus and Enterovirus.Droplet isolation. Contact isolation if young infants. Consider stopping antibiotics. INFLUENZA A (BEAKER) (test ouit=4619) Not detected Not detected, Equivocal INFLUENZA A (NO SUBTYPE) (test buca=4916) Not detected, Equivocal INFLUENZA A SUBTYPE H1 (BEAKER) (test frfm=9767) Not detected, Equivocal INFLUENZA A SUBTYPE H3 (BEAKER) (test jgnu=8289) Not detected, Equivocal INFLUENZA A SUBTYPE H1-2009 (BEAKER) (test vefe=3659) Not detected, Equivocal INFLUENZA B (BEAKER) (test nmxm=8168) Not detected Not detected, Equivocal RESPIRATORY SYNCYTIAL VIRUS (BEAKER) (test mocr=1315) Not detected Not detected, Equivocal PARAINFLUENZA VIRUS 1 (BEAKER) (test ijhq=2780) Not detected Not detected, Equivocal PARAINFLUENZA VIRUS 2 (BEAKER) (test debr=4082) Not detected Not detected, Equivocal PARAINFLUENZA VIRUS 3 (BEAKER) (test pfyz=6169) Not detected Not detected, Equivocal PARAINFLUENZA VIRUS 4 (BEAKER) (test yaxi=8994) Not detected Not detected, Equivocal ADENOVIRUS (BEAKER) (test lmzo=8482) Not detected Not detected, Equivocal CORONAVIRUS 229E (BEAKER) (test tkns=3606) Not detected Not detected, Equivocal CORONAVIRUS HKU1 (BEAKER) (test ooti=0563) Not detected Not detected, Equivocal CORONAVIRUS NL63 (BEAKER) (test yljb=8435) Not detected Not detected, Equivocal CORONAVIRUS OC43 (BEAKER) (test fxvz=5174) Not detected Not detected, Equivocal BORDETELLA PERTUSSIS (BEAKER) (test txvc=0872) Not detected Not detected, Equivocal CHLAMYDOPHILA PNEUMONIAE (BEAKER) (test aqcw=5942) Not detected Not detected, Equivocal MYCOPLASMA PNEUMONIAE (BEAKER) (test eddb=7456) Not detected Not detected, Equivocal Other viruses and bacteria not targeted by this PCR panel cannot be excluded; th erefore clinical correlation and follow up of serology, culture results, and oth er molecular studies is required. The results are not intended to be used as the sole means for clinical diagnosis or patient management decisions. This sample was tested at the [facility] using the Flyrf[employer] Film[employer] rray Respiratory Panel. It is FDA cleared and has been verified and approved by the [facility] for clinical use on nasal swab specim ens. It is not FDA-cleared for use on bronchial wash/lavage samples. However, fo r this sample type, validation was performed and test characteristics were deter mined and approved, by [facility] for clinical use u nder the Clinical Laboratory Improvement Amendments (CLIA) of 1988 requirements. Therefore, FDA clearance is not required. This laboratory is CLIA-certified and [employer] ([employer])-accredited to perform high complexity t esting.CT, CHEST, WITHOUT [id number] 07:20:00F/u mediastinal lymph nodes per CT 07/2018FINAL REPORT CT Chest without contrast History: Mediastinal lymphadenopathy, spiculated focus within left lung Comparison: 07/26/2018 Technique: serial axial imaging was performed without intravenous contrast as per departmental protocol. Multiplanar images are reconstructed and reviewed when indicated. This CT examination is performed using one or more of the following dose reduction techniques: Automated exposure control, adjustment of the mA and /or kV according to patient size, and/or use of iterative reconstruction technique. Findings:Mildly prominent middle mediastinal lymph nodes, unchanged from prior examination. No definite hilar enlargement. Mild cardiomegaly with cardiac pacer and left ventricular assist device in place. No thoracic aortic aneurysm. Normal caliber of main pulmonary trunk. Patent central airways. Trace right pleural effusion, not significantly changed from prior study. Interval development of a focus of airspace disease within the dependent right lower lobe. There is a small focus of scarring within the left lower lobe which appears unchanged. No significant findings in the partially imaged abdomen. No aggressive osseous lesion. Intact sternotomy wires. Impression: 1. Small focus of scarring within the left lower lobe, unchanged from prior examination.2. Interval development of a focus of airspace disease within the dependent right lower lobe, which could represent atelectasis or pneumonia.3. Trace right pleural effusion, not significantly changed from prior study.4. Mildly prominent middle mediastinal lymph nodes, unchanged from prior examination and likely reactive.5. Mild cardiomegaly with cardiac pacer and left ventricular assist device in place. Signed: Benigno Yeagereport Verified Date/Time: 10/30/2018 07:20:52 Reading Location: [facility] Diagnostic Imaging Reading Room - [place] [address] ATE DEHYDROGENASE (LDH)2018-10-30 06:13:00* Test Item Value Reference Range Comments LACTATE DEHYDROGENASE (BEAKER) (test iuey=482) 253 U/L 125-220 BASIC METABOLIC [id number] 06:13:00* Test Item Value Reference Range Comments SODIUM (BEAKER) (test umxs=013) 136 meq/L 136-145 POTASSIUM (BEAKER) (test adxm=398) 3.9 meq/L 3.5-5.1 CHLORIDE (BEAKER) (test ghng=333) 105 meq/L 98-107 CO2 (BEAKER) (test knxy=708) 23 meq/L 22-29 BLOOD UREA NITROGEN (BEAKER) (test vyve=759) 31 mg/dL 7-21 CREATININE (BEAKER) (test slam=656) 1.36 mg/dL 0.57-1.25 GLUCOSE RANDOM (BEAKER) (test nvfi=568) 83 mg/dL 70-105 CALCIUM (BEAKER) (test iamk=911) 8.4 mg/dL 8.4-10.2 EGFR (BEAKER) (test rkpn=6584) 50 mL/min/1.73 sq m ESTIMATED GFR IS NOT ACCURATE CREATININE CLEARANCE IN PREDICTING GLOMERULAR FILTRATION RATE. ESTIMATED GFR IS NOT APPLICABLE FOR DIALYSIS PATIENTS. PROTHROMBIN TIME/[id number] 06:08:00* Test Item Value Reference Range Comments PROTIME (BEAKER) (test opgb=723) 26.2 seconds 11.7-14.7 INR (BEAKER) (test yyno=354) 2.6 <=5.9 RECOMMENDED COUMADIN/WARFARIN INR THERAPY RANGESSTANDARD DOSE: 2.0 - 3.0 Inclu navid: PROPHYLAXIS for venous thrombosis, systemic embolization; TREATMENT for dayna ous thrombosis and/or pulmonary embolus.HIGH RISK: Target INR is 2.5-3.5 for pat ients with mechanical heart valves.While on warfarin.CBC W/PLT COUNT & AUTO [id number] 06:06:00* Test Item Value Reference Range Comments WHITE BLOOD CELL COUNT (BEAKER) (test lqyv=914) 13.6 K/ L 3.5-10.5 RED BLOOD CELL COUNT (BEAKER) (test bwft=732) 3.72 M/ L 4.63-6.08 HEMOGLOBIN (BEAKER) (test rxoo=374) 9.3 GM/DL 13.7-17.5 HEMATOCRIT (BEAKER) (test zumn=701) 31.4 % 40.1-51.0 MEAN CORPUSCULAR VOLUME (BEAKER) (test eitu=212) 84.4 fL 79.0-92.2 MEAN CORPUSCULAR HEMOGLOBIN (BEAKER) (test pvqg=923) 25.0 pg 25.7-32.2 MEAN CORPUSCULAR HEMOGLOBIN CONC (BEAKER) (test ypwy=058) 29.6 GM/DL 32.3-36.5 RED CELL DISTRIBUTION WIDTH (BEAKER) (test fnge=204) 16.7 % 11.6-14.4 PLATELET COUNT (BEAKER) (test shkw=175) 199 K/CU MM 150-450 MEAN PLATELET VOLUME (BEAKER) (test ptio=676) 11.2 fL 9.4-12.4 NUCLEATED RED BLOOD CELLS (BEAKER) (test romb=229) 0 /100 WBC 0-0 NEUTROPHILS RELATIVE PERCENT (BEAKER) (test dmqs=681) 83 % LYMPHOCYTES RELATIVE PERCENT (BEAKER) (test pvxh=007) 5 % MONOCYTES RELATIVE PERCENT (BEAKER) (test jmyo=865) 7 % EOSINOPHILS RELATIVE PERCENT (BEAKER) (test abht=170) 3 % BASOPHILS RELATIVE PERCENT (BEAKER) (test grcx=376) 1 % NEUTROPHILS ABSOLUTE COUNT (BEAKER) (test ipuf=965) 11.37 K/ L 1.78-5.38 LYMPHOCYTES ABSOLUTE COUNT (BEAKER) (test yhcc=246) 0.72 K/ L 1.32-3.57 MONOCYTES ABSOLUTE COUNT (BEAKER) (test dubx=161) 0.99 K/ L 0.30-0.82 EOSINOPHILS ABSOLUTE COUNT (BEAKER) (test pvjm=874) 0.43 K/ L 0.04-0.54 BASOPHILS ABSOLUTE COUNT (BEAKER) (test xglf=811) 0.07 K/ L 0.01-0.08 IMMATURE GRANULOCYTES-RELATIVE PERCENT (BEAKER) (test twze=7318) 0 % 0-1 [id number] 06:11:00* Test Item Value Reference Range Comments PHOSPHORUS (BEAKER) (test tmai=748) 3.1 mg/dL 2.3-4.7 [id number] 06:11:00* Test Item Value Reference Range Comments MAGNESIUM (BEAKER) (test jwsi=274) 2.1 mg/dL 1.6-2.6 BASIC METABOLIC [id number] 06:11:00* Test Item Value Reference Range Comments SODIUM (BEAKER) (test vmjd=591) 139 meq/L 136-145 POTASSIUM (BEAKER) (test znjy=950) 4.3 meq/L 3.5-5.1 CHLORIDE (BEAKER) (test xpnh=327) 108 meq/L 98-107 CO2 (BEAKER) (test jtlc=334) 23 meq/L 22-29 BLOOD UREA NITROGEN (BEAKER) (test vtzr=691) 33 mg/dL 7-21 CREATININE (BEAKER) (test bazo=968) 1.21 mg/dL 0.57-1.25 GLUCOSE RANDOM (BEAKER) (test gffq=015) 103 mg/dL 70-105 CALCIUM (BEAKER) (test nkgb=804) 8.6 mg/dL 8.4-10.2 EGFR (BEAKER) (test lzyr=3559) 58 mL/min/1.73 sq m ESTIMATED GFR IS NOT ACCURATE CREATININE CLEARANCE IN PREDICTING GLOMERULAR FILTRATION RATE. ESTIMATED GFR IS NOT APPLICABLE FOR DIALYSIS PATIENTS. LACTATE DEHYDROGENASE (LDH)2018-10-29 06:11:00* Test Item Value Reference Range Comments LACTATE DEHYDROGENASE (BEAKER) (test mbex=265) 264 U/L 125-220 PROTHROMBIN TIME/[id number] 05:56:00* Test Item Value Reference Range Comments PROTIME (BEAKER) (test iqdv=819) 23.9 seconds 11.7-14.7 INR (BEAKER) (test nngz=767) 2.3 <=5.9 RECOMMENDED COUMADIN/WARFARIN INR THERAPY RANGESSTANDARD DOSE: 2.0 - 3.0 Inclu navid: PROPHYLAXIS for venous thrombosis, systemic embolization; TREATMENT for dayna ous thrombosis and/or pulmonary embolus.HIGH RISK: Target INR is 2.5-3.5 for pat ients with mechanical heart valves.While on warfarin.LACTATE DEHYDROGENASE (LDH) 2018-10-28 05:14:00* Test Item Value Reference Range Comments LACTATE DEHYDROGENASE (BEAKER) (test iygx=636) 310 U/L 125-220 Specimen slightly hemolyzed [id number] 05:04:00* Test Item Value Reference Range Comments MAGNESIUM (BEAKER) (test qykv=659) 1.7 mg/dL 1.6-2.6 Specimen slightly hemolyzed [id number] 05:04:00* Test Item Value Reference Range Comments PHOSPHORUS (BEAKER) (test ugzd=065) 3.2 mg/dL 2.3-4.7 Specimen slightly hemolyzed BASIC METABOLIC [id number] 05:04:00* Test Item Value Reference Range Comments SODIUM (BEAKER) (test cras=385) 136 meq/L 136-145 POTASSIUM (BEAKER) (test apmd=121) 4.0 meq/L 3.5-5.1 Specimen slightly hemolyzed CHLORIDE (BEAKER) (test ehyn=308) 107 meq/L 98-107 CO2 (BEAKER) (test dipc=180) 20 meq/L 22-29 BLOOD UREA NITROGEN (BEAKER) (test mqpk=170) 30 mg/dL 7-21 CREATININE (BEAKER) (test gufl=363) 1.28 mg/dL 0.57-1.25 Specimen slightly hemolyzed GLUCOSE RANDOM (BEAKER) (test uwto=782) 83 mg/dL 70-105 CALCIUM (BEAKER) (test ypas=467) 8.6 mg/dL 8.4-10.2 EGFR (BEAKER) (test azbl=4635) 54 mL/min/1.73 sq m ESTIMATED GFR IS NOT ACCURATE CREATININE CLEARANCE IN PREDICTING GLOMERULAR FILTRATION RATE. ESTIMATED GFR IS NOT APPLICABLE FOR DIALYSIS PATIENTS. PROTHROMBIN TIME/[id number] 04:51:00* Test Item Value Reference Range Comments PROTIME (BEAKER) (test doqq=264) 23.1 seconds 11.7-14.7 INR (BEAKER) (test zvcd=065) 2.2 <=5.9 RECOMMENDED COUMADIN/WARFARIN INR THERAPY RANGESSTANDARD DOSE: 2.0 - 3.0 Inclu navid: PROPHYLAXIS for venous thrombosis, systemic embolization; TREATMENT for dayna ous thrombosis and/or pulmonary embolus.HIGH RISK: Target INR is 2.5-3.5 for pat ients with mechanical heart valves.While on warfarin.LACTATE DEHYDROGENASE (LDH) 2018-10-27 12:17:00* Test Item Value Reference Range Comments LACTATE DEHYDROGENASE (BEAKER) (test bhzl=908) 287 U/L 125-220 RESPIRATORY PANEL [id number] 11:13:00* Test Item Value Reference Range Comments HUMAN METAPNEUMOVIRUS (BEAKER) (test ccru=2449) Not detected Not detected, Equivocal RHINOVIRUS (BEAKER) (test diyt=3654) Not detected Not detected, Equivocal INFLUENZA A (BEAKER) (test lbwb=4090) Not detected Not detected, Equivocal INFLUENZA A (NO SUBTYPE) (test hlqr=8688) Not detected, Equivocal INFLUENZA A SUBTYPE H1 (BEAKER) (test zuby=9391) Not detected, Equivocal INFLUENZA A SUBTYPE H3 (BEAKER) (test jflx=4831) Not detected, Equivocal INFLUENZA A SUBTYPE H1-2009 (BEAKER) (test vlcb=0800) Not detected, Equivocal INFLUENZA B (BEAKER) (test esri=0901) Not detected Not detected, Equivocal RESPIRATORY SYNCYTIAL VIRUS (BEAKER) (test fvzw=1087) Not detected Not detected, Equivocal PARAINFLUENZA VIRUS 1 (BEAKER) (test wtuu=0270) Not detected Not detected, Equivocal PARAINFLUENZA VIRUS 2 (BEAKER) (test mlru=2062) Not detected Not detected, Equivocal PARAINFLUENZA VIRUS 3 (BEAKER) (test xsdr=7985) Not detected Not detected, Equivocal PARAINFLUENZA VIRUS 4 (BEAKER) (test rjin=1971) Not detected Not detected, Equivocal ADENOVIRUS (BEAKER) (test kieg=7876) Not detected Not detected, Equivocal CORONAVIRUS 229E (BEAKER) (test suff=4332) Not detected Not detected, Equivocal CORONAVIRUS HKU1 (BEAKER) (test fiee=6215) Not detected Not detected, Equivocal CORONAVIRUS NL63 (BEAKER) (test rwav=1273) Not detected Not detected, Equivocal CORONAVIRUS OC43 (BEAKER) (test sbnx=6423) Not detected Not detected, Equivocal BORDETELLA PERTUSSIS (BEAKER) (test pdwg=6879) Not detected Not detected, Equivocal CHLAMYDOPHILA PNEUMONIAE (BEAKER) (test wxqu=0270) Not detected Not detected, Equivocal MYCOPLASMA PNEUMONIAE (BEAKER) (test xree=7752) Not detected Not detected, Equivocal Other viruses and bacteria not targeted by this PCR panel cannot be excluded; th erefore clinical correlation and follow up of serology, culture results, and oth er molecular studies is required. The results are not intended to be used as the sole means for clinical diagnosis or patient management decisions. This sample was tested at the [facility] using the Planwise[employer] rray Respiratory Panel. It is FDA cleared and has been verified and approved by the [facility] for clinical use on nasal swab specim ens. It is not FDA-cleared for use on bronchial wash/lavage samples. However, fo r this sample type, validation was performed and test characteristics were deter mined and approved, by [facility] for clinical use u nder the Clinical Laboratory Improvement Amendments (CLIA) of 1988 requirements. Therefore, FDA clearance is not required. This laboratory is CLIA-certified and [employer] ([employer])-accredited to perform high complexity t esting.[id number] 05:21:00* Test Item Value Reference Range Comments PHOSPHORUS (BEAKER) (test osss=605) 3.2 mg/dL 2.3-4.7 [id number] 05:21:00* Test Item Value Reference Range Comments MAGNESIUM (BEAKER) (test eemt=701) 1.6 mg/dL 1.6-2.6 BASIC METABOLIC [id number] 05:21:00* Test Item Value Reference Range Comments SODIUM (BEAKER) (test yshb=881) 139 meq/L 136-145 POTASSIUM (BEAKER) (test dgps=733) 4.3 meq/L 3.5-5.1 CHLORIDE (BEAKER) (test wpyz=633) 113 meq/L 98-107 CO2 (BEAKER) (test vkgx=168) 17 meq/L 22-29 BLOOD UREA NITROGEN (BEAKER) (test iffo=074) 34 mg/dL 7-21 CREATININE (BEAKER) (test yirj=519) 1.29 mg/dL 0.57-1.25 GLUCOSE RANDOM (BEAKER) (test tftg=032) 97 mg/dL 70-105 CALCIUM (BEAKER) (test exhs=827) 8.5 mg/dL 8.4-10.2 EGFR (BEAKER) (test pugb=0021) 53 mL/min/1.73 sq m ESTIMATED GFR IS NOT ACCURATE CREATININE CLEARANCE IN PREDICTING GLOMERULAR FILTRATION RATE. ESTIMATED GFR IS NOT APPLICABLE FOR DIALYSIS PATIENTS. PROTHROMBIN TIME/[id number] 05:02:00* Test Item Value Reference Range Comments PROTIME (BEAKER) (test mdix=104) 24.2 seconds 11.7-14.7 INR (BEAKER) (test pxdl=916) 2.1 <=5.9 RECOMMENDED COUMADIN/WARFARIN INR THERAPY RANGESSTANDARD DOSE: 2.0 - 3.0 Inclu navid: PROPHYLAXIS for venous thrombosis, systemic embolization; TREATMENT for dayna ous thrombosis and/or pulmonary embolus.HIGH RISK: Target INR is 2.5-3.5 for pat ients with mechanical heart valves.While on warfarin.CBC W/PLT COUNT & AUTO [id number] 04:48:00* Test Item Value Reference Range Comments WHITE BLOOD CELL COUNT (BEAKER) (test znhq=880) 10.1 K/ L 3.5-10.5 RED BLOOD CELL COUNT (BEAKER) (test wbgn=331) 3.67 M/ L 4.63-6.08 HEMOGLOBIN (BEAKER) (test mieg=195) 9.3 GM/DL 13.7-17.5 HEMATOCRIT (BEAKER) (test pqnq=370) 31.5 % 40.1-51.0 MEAN CORPUSCULAR VOLUME (BEAKER) (test lsus=219) 85.8 fL 79.0-92.2 MEAN CORPUSCULAR HEMOGLOBIN (BEAKER) (test mcsb=296) 25.3 pg 25.7-32.2 MEAN CORPUSCULAR HEMOGLOBIN CONC (BEAKER) (test pmrw=078) 29.5 GM/DL 32.3-36.5 RED CELL DISTRIBUTION WIDTH (BEAKER) (test omqq=939) 16.8 % 11.6-14.4 PLATELET COUNT (BEAKER) (test cono=434) 201 K/CU MM 150-450 MEAN PLATELET VOLUME (BEAKER) (test izqh=124) 11.6 fL 9.4-12.4 NUCLEATED RED BLOOD CELLS (BEAKER) (test spzt=371) 0 /100 WBC 0-0 NEUTROPHILS RELATIVE PERCENT (BEAKER) (test pldb=133) 66 % LYMPHOCYTES RELATIVE PERCENT (BEAKER) (test rgnr=197) 18 % MONOCYTES RELATIVE PERCENT (BEAKER) (test dyrh=178) 10 % EOSINOPHILS RELATIVE PERCENT (BEAKER) (test ages=568) 5 % BASOPHILS RELATIVE PERCENT (BEAKER) (test vnor=168) 1 % NEUTROPHILS ABSOLUTE COUNT (BEAKER) (test ooxd=997) 6.66 K/ L 1.78-5.38 LYMPHOCYTES ABSOLUTE COUNT (BEAKER) (test rmec=431) 1.83 K/ L 1.32-3.57 MONOCYTES ABSOLUTE COUNT (BEAKER) (test ucmj=372) 1.01 K/ L 0.30-0.82 EOSINOPHILS ABSOLUTE COUNT (BEAKER) (test pnze=763) 0.47 K/ L 0.04-0.54 BASOPHILS ABSOLUTE COUNT (BEAKER) (test zkrd=669) 0.13 K/ L 0.01-0.08 IMMATURE GRANULOCYTES-RELATIVE PERCENT (BEAKER) (test wajo=4596) 0 % 0-1 RAD, CHEST, 2 [id number] 21:20:00Reason for exam:->SHORTNESS OF BREATHFINAL REPORT Examination: Two view Chest X-ray. CLINICAL HISTORY: Shortness of breath Two views of the chest are submitted. COMPARISON: 10/13/2018 The cardiac silhouette is at the upper limits of normal for size. 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 Curviline ar opacity in the left lower lung suggests atelectasis or scarring. There is n o pneumothorax, large pleural effusion, evidence of overt pulmonary edema or acu te bony abnormality. Signed: Mar Francis MDReport Verified Date/Time: 019 21:20:42 Reading Location: [address] Reading Room Electro nically signed by: MAR FRANCIS M.D. on 10/26/2018 09:20 PM POCT-LACTIC ACID, [id number] 20:54:00* Test Item Value Reference Range Comments POC-LACTIC ACID, VENOUS (BEAKER) (test jfon=8697) 1.0 mmol/L 0.9-1.7 TESTED AT [address] [address] B-TYPE NATRIURETIC FACTOR (BNP)2018-10-26 20:35:00* Test Item Value Reference Range Comments B-TYPE NATRIURETIC PEPTIDE (BEAKER) (test rzdz=156) 1287 pg/mL 0-100 [id number] 20:31:00* Test Item Value Reference Range Comments PHOSPHORUS (BEAKER) (test wcgf=768) 3.5 mg/dL 2.3-4.7 [id number] 20:31:00* Test Item Value Reference Range Comments MAGNESIUM (BEAKER) (test wnam=474) 2.0 mg/dL 1.6-2.6 BASIC METABOLIC [id number] 20:31:00* Test Item Value Reference Range Comments SODIUM (BEAKER) (test nisa=358) 140 meq/L 136-145 POTASSIUM (BEAKER) (test suea=889) 4.7 meq/L 3.5-5.1 CHLORIDE (BEAKER) (test yper=591) 111 meq/L 98-107 CO2 (BEAKER) (test xonm=407) 22 meq/L 22-29 BLOOD UREA NITROGEN (BEAKER) (test ogas=750) 35 mg/dL 7-21 CREATININE (BEAKER) (test mbsd=106) 1.38 mg/dL 0.57-1.25 GLUCOSE RANDOM (BEAKER) (test mvdq=652) 91 mg/dL 70-105 CALCIUM (BEAKER) (test gyrt=291) 9.2 mg/dL 8.4-10.2 EGFR (BEAKER) (test kuvm=6385) 49 mL/min/1.73 sq m ESTIMATED GFR IS NOT ACCURATE CREATININE CLEARANCE IN PREDICTING GLOMERULAR FILTRATION RATE. ESTIMATED GFR IS NOT APPLICABLE FOR DIALYSIS PATIENTS. PROTHROMBIN TIME/[id number] 20:20:00* Test Item Value Reference Range Comments PROTIME (BEAKER) (test lfnm=483) 24.5 seconds 11.7-14.7 INR (BEAKER) (test ubme=162) 2.2 <=5.9 RECOMMENDED COUMADIN/WARFARIN INR THERAPY RANGESSTANDARD DOSE: 2.0 - 3.0 Inclu navid: PROPHYLAXIS for venous thrombosis, systemic embolization; TREATMENT for dayna ous thrombosis and/or pulmonary embolus.HIGH RISK: Target INR is 2.5-3.5 for pat ients with mechanical heart valves.CBC W/PLT COUNT & AUTO [id number] 20:10:00* Test Item Value Reference Range Comments WHITE BLOOD CELL COUNT (BEAKER) (test bkju=134) 9.5 K/ L 3.5-10.5 RED BLOOD CELL COUNT (BEAKER) (test sgcj=147) 3.67 M/ L 4.63-6.08 HEMOGLOBIN (BEAKER) (test uunm=573) 9.3 GM/DL 13.7-17.5 HEMATOCRIT (BEAKER) (test dlth=223) 31.4 % 40.1-51.0 MEAN CORPUSCULAR VOLUME (BEAKER) (test kmvi=596) 85.6 fL 79.0-92.2 MEAN CORPUSCULAR HEMOGLOBIN (BEAKER) (test aunm=590) 25.3 pg 25.7-32.2 MEAN CORPUSCULAR HEMOGLOBIN CONC (BEAKER) (test znym=002) 29.6 GM/DL 32.3-36.5 RED CELL DISTRIBUTION WIDTH (BEAKER) (test ddzz=769) 16.9 % 11.6-14.4 PLATELET COUNT (BEAKER) (test fsdq=336) 204 K/CU MM 150-450 MEAN PLATELET VOLUME (BEAKER) (test lamb=786) 11.0 fL 9.4-12.4 NUCLEATED RED BLOOD CELLS (BEAKER) (test vekc=249) 0 /100 WBC 0-0 NEUTROPHILS RELATIVE PERCENT (BEAKER) (test vrbo=589) 67 % LYMPHOCYTES RELATIVE PERCENT (BEAKER) (test acrw=520) 16 % MONOCYTES RELATIVE PERCENT (BEAKER) (test btbp=040) 9 % EOSINOPHILS RELATIVE PERCENT (BEAKER) (test eore=958) 7 % BASOPHILS RELATIVE PERCENT (BEAKER) (test ooif=305) 1 % NEUTROPHILS ABSOLUTE COUNT (BEAKER) (test kwic=596) 6.38 K/ L 1.78-5.38 LYMPHOCYTES ABSOLUTE COUNT (BEAKER) (test glcp=472) 1.51 K/ L 1.32-3.57 MONOCYTES ABSOLUTE COUNT (BEAKER) (test bzgn=875) 0.82 K/ L 0.30-0.82 EOSINOPHILS ABSOLUTE COUNT (BEAKER) (test uhfq=138) 0.61 K/ L 0.04-0.54 BASOPHILS ABSOLUTE COUNT (BEAKER) (test omqg=205) 0.11 K/ L 0.01-0.08 IMMATURE GRANULOCYTES-RELATIVE PERCENT (BEAKER) (test kifq=2812) 0 % 0-1 RAD, CHEST, 1 VIEW, NON [id number] 14:08:00Reason for exam:->chest painShould this be performed at the bedside?->YesFINAL REPORT Chest, one view History: chest pain Comparison: 08/27/2018 Findings:Clear lungs. Moderate cardiomegaly. Previous median sternotomy. Cardiac pacer and left ventricular assist device in place. No pleural effusion or pneumothorax. Impression:No acute findings in the chest Signed: Benigno Yeager MDReport Verified Date/Time: 10/13/2018 14:08:42 Reading Location: [facility] C013Y CT Body Reading Room ONIN [id number] 14:01:00* Test Item Value Reference Range Comments TROPONIN I (BEAKER) (test pmtn=065) 0.02 ng/mL 0.00-0.03 Troponin I (TnI) levels must be interpreted in the context of the presenting sym ptoms and the clinical findings. Elevated TnI levels indicate myocardial damage, but are not specific for ischemic heart disease. Elevated TnI levels are seen in patients with other cardiac conditions (including myocarditis and congestive h eart failure), and slight TnI elevations occur in patients with other conditions , including sepsis, renal failure, acidosis, acute neurological disease, and per sistent tachyarrhythmia.PT/[id number] 13:57:00* Test Item Value Reference Range Comments PROTIME (BEAKER) (test ggxh=401) 25.6 seconds 11.7-14.7 INR (BEAKER) (test axrs=570) 2.3 <=5.9 PARTIAL THROMBOPLASTIN TIME (BEAKER) (test enzi=666) 49.0 seconds 22.5-36.0 RECOMMENDED COUMADIN/WARFARIN INR THERAPY RANGESSTANDARD DOSE: 2.0 - 3.0 Inclu navid: PROPHYLAXIS for venous thrombosis, systemic embolization; TREATMENT for dayna ous thrombosis and/or pulmonary embolus.HIGH RISK: Target INR is 2.5-3.5 for pat ients with mechanical heart valves.[id number] 13:53:00* Test Item Value Reference Range Comments MAGNESIUM (BEAKER) (test jtdj=822) 1.9 mg/dL 1.6-2.6 COMPREHENSIVE METABOLIC [id number] 13:53:00* Test Item Value Reference Range Comments TOTAL PROTEIN (BEAKER) (test gzvs=056) 6.7 gm/dL 6.0-8.3 ALBUMIN (BEAKER) (test yqrp=0057) 3.6 g/dL 3.5-5.0 ALKALINE PHOSPHATASE (BEAKER) (test lbpg=287) 114 U/L 40-150 BILIRUBIN TOTAL (BEAKER) (test qsbl=551) 1.0 mg/dL 0.2-1.2 SODIUM (BEAKER) (test gngl=441) 139 meq/L 136-145 POTASSIUM (BEAKER) (test zbko=335) 4.9 meq/L 3.5-5.1 CHLORIDE (BEAKER) (test rhcl=769) 110 meq/L 98-107 CO2 (BEAKER) (test htub=153) 23 meq/L 22-29 BLOOD UREA NITROGEN (BEAKER) (test czok=219) 37 mg/dL 7-21 CREATININE (BEAKER) (test czkp=095) 1.37 mg/dL 0.57-1.25 GLUCOSE RANDOM (BEAKER) (test hryh=737) 92 mg/dL 70-105 CALCIUM (BEAKER) (test sukc=449) 9.0 mg/dL 8.4-10.2 AST (SGOT) (BEAKER) (test jbvi=148) 19 U/L 5-34 ALT (SGPT) (BEAKER) (test cmal=319) 10 U/L 6-55 EGFR (BEAKER) (test oupw=5627) 50 mL/min/1.73 sq m ESTIMATED GFR IS NOT ACCURATE CREATININE CLEARANCE IN PREDICTING GLOMERULAR FILTRATION RATE. ESTIMATED GFR IS NOT APPLICABLE FOR DIALYSIS PATIENTS. [id number] 13:53:00* Test Item Value Reference Range Comments LIPASE (BEAKER) (test kudr=298) 71 U/L 8-78 CBC W/PLT COUNT & AUTO [id number] 13:37:00* Test Item Value Reference Range Comments WHITE BLOOD CELL COUNT (BEAKER) (test qxss=004) 9.1 K/ L 3.5-10.5 RED BLOOD CELL COUNT (BEAKER) (test eyie=472) 3.51 M/ L 4.63-6.08 HEMOGLOBIN (BEAKER) (test jtnn=048) 9.4 GM/DL 13.7-17.5 HEMATOCRIT (BEAKER) (test eexu=119) 30.7 % 40.1-51.0 MEAN CORPUSCULAR VOLUME (BEAKER) (test hqhg=797) 87.5 fL 79.0-92.2 MEAN CORPUSCULAR HEMOGLOBIN (BEAKER) (test rfet=891) 26.8 pg 25.7-32.2 MEAN CORPUSCULAR HEMOGLOBIN CONC (BEAKER) (test scjk=270) 30.6 GM/DL 32.3-36.5 RED CELL DISTRIBUTION WIDTH (BEAKER) (test aegn=576) 16.6 % 11.6-14.4 PLATELET COUNT (BEAKER) (test osqf=661) 195 K/CU MM 150-450 MEAN PLATELET VOLUME (BEAKER) (test cktz=032) 10.7 fL 9.4-12.4 NUCLEATED RED BLOOD CELLS (BEAKER) (test elyn=521) 0 /100 WBC 0-0 NEUTROPHILS RELATIVE PERCENT (BEAKER) (test elva=455) 64 % LYMPHOCYTES RELATIVE PERCENT (BEAKER) (test ztsd=016) 18 % MONOCYTES RELATIVE PERCENT (BEAKER) (test njix=731) 9 % EOSINOPHILS RELATIVE PERCENT (BEAKER) (test ofej=983) 7 % BASOPHILS RELATIVE PERCENT (BEAKER) (test jdhb=328) 1 % NEUTROPHILS ABSOLUTE COUNT (BEAKER) (test jxwo=108) 5.86 K/ L 1.78-5.38 LYMPHOCYTES ABSOLUTE COUNT (BEAKER) (test cogs=436) 1.63 K/ L 1.32-3.57 MONOCYTES ABSOLUTE COUNT (BEAKER) (test flgz=016) 0.86 K/ L 0.30-0.82 EOSINOPHILS ABSOLUTE COUNT (BEAKER) (test uetm=967) 0.64 K/ L 0.04-0.54 BASOPHILS ABSOLUTE COUNT (BEAKER) (test zzje=585) 0.13 K/ L 0.01-0.08 IMMATURE GRANULOCYTES-RELATIVE PERCENT (BEAKER) (test yrvu=9873) 0 % 0-1 [id number] 11:33:00* Test Item Value Reference Range Comments MAGNESIUM (BEAKER) (test fkgy=342) 2.3 mg/dL 1.6-2.6 BASIC METABOLIC [id number] 11:33:00* Test Item Value Reference Range Comments SODIUM (BEAKER) (test rlof=315) 137 meq/L 136-145 POTASSIUM (BEAKER) (test sfqo=685) 4.9 meq/L 3.5-5.1 CHLORIDE (BEAKER) (test ykmg=697) 108 meq/L 98-107 CO2 (BEAKER) (test cxnd=469) 24 meq/L 22-29 BLOOD UREA NITROGEN (BEAKER) (test nmwo=752) 36 mg/dL 7-21 CREATININE (BEAKER) (test tput=780) 1.38 mg/dL 0.57-1.25 GLUCOSE RANDOM (BEAKER) (test lotm=276) 87 mg/dL 70-105 CALCIUM (BEAKER) (test dpml=518) 9.2 mg/dL 8.4-10.2 EGFR (BEAKER) (test yevf=0855) 49 mL/min/1.73 sq m ESTIMATED GFR IS NOT ACCURATE CREATININE CLEARANCE IN PREDICTING GLOMERULAR FILTRATION RATE. ESTIMATED GFR IS NOT APPLICABLE FOR DIALYSIS PATIENTS. HEPATIC FUNCTION [id number] 11:33:00* Test Item Value Reference Range Comments TOTAL PROTEIN (BEAKER) (test spsn=538) 6.8 gm/dL 6.0-8.3 ALBUMIN (BEAKER) (test voii=9727) 3.8 g/dL 3.5-5.0 BILIRUBIN TOTAL (BEAKER) (test psgu=050) 0.9 mg/dL 0.2-1.2 BILIRUBIN DIRECT (BEAKER) (test hjix=639) 0.5 mg/dL 0.1-0.5 ALKALINE PHOSPHATASE (BEAKER) (test zhup=645) 116 U/L 40-150 AST (SGOT) (BEAKER) (test yuee=682) 25 U/L 5-34 ALT (SGPT) (BEAKER) (test bmww=099) 13 U/L 6-55 LACTATE DEHYDROGENASE (LDH)2018-10-05 11:33:00* Test Item Value Reference Range Comments LACTATE DEHYDROGENASE (BEAKER) (test xffi=618) 310 U/L 125-220 PROTHROMBIN [id number] 11:21:00* Test Item Value Reference Range Comments PROTIME (BEAKER) (test yjae=685) 21.6 seconds 11.7-14.7 INR (BEAKER) (test cqld=214) 1.9 <=5.9 RECOMMENDED COUMADIN/WARFARIN INR THERAPY RANGESSTANDARD DOSE: 2.0 - 3.0 Inclu navid: PROPHYLAXIS for venous thrombosis, systemic embolization; TREATMENT for dayna ous thrombosis and/or pulmonary embolus.HIGH RISK: Target INR is 2.5-3.5 for pat ients with mechanical heart valves.CBC W/PLT COUNT & AUTO [id number] 11:14:00* Test Item Value Reference Range Comments WHITE BLOOD CELL COUNT (BEAKER) (test njkz=060) 8.4 K/ L 3.5-10.5 RED BLOOD CELL COUNT (BEAKER) (test kmmb=263) 3.51 M/ L 4.63-6.08 HEMOGLOBIN (BEAKER) (test drez=373) 9.4 GM/DL 13.7-17.5 HEMATOCRIT (BEAKER) (test igze=048) 30.7 % 40.1-51.0 MEAN CORPUSCULAR VOLUME (BEAKER) (test fibh=485) 87.5 fL 79.0-92.2 MEAN CORPUSCULAR HEMOGLOBIN (BEAKER) (test situ=404) 26.8 pg 25.7-32.2 MEAN CORPUSCULAR HEMOGLOBIN CONC (BEAKER) (test fhph=443) 30.6 GM/DL 32.3-36.5 RED CELL DISTRIBUTION WIDTH (BEAKER) (test mqpc=622) 16.4 % 11.6-14.4 PLATELET COUNT (BEAKER) (test lifm=566) 191 K/CU MM 150-450 MEAN PLATELET VOLUME (BEAKER) (test swyy=758) 10.5 fL 9.4-12.4 NUCLEATED RED BLOOD CELLS (BEAKER) (test ytlz=107) 0 /100 WBC 0-0 NEUTROPHILS RELATIVE PERCENT (BEAKER) (test kxjp=940) 63 % LYMPHOCYTES RELATIVE PERCENT (BEAKER) (test pvtw=233) 19 % MONOCYTES RELATIVE PERCENT (BEAKER) (test yciu=444) 10 % EOSINOPHILS RELATIVE PERCENT (BEAKER) (test jxtk=290) 7 % BASOPHILS RELATIVE PERCENT (BEAKER) (test uemy=699) 1 % NEUTROPHILS ABSOLUTE COUNT (BEAKER) (test cinh=182) 5.30 K/ L 1.78-5.38 LYMPHOCYTES ABSOLUTE COUNT (BEAKER) (test mogz=854) 1.61 K/ L 1.32-3.57 MONOCYTES ABSOLUTE COUNT (BEAKER) (test gtqw=333) 0.81 K/ L 0.30-0.82 EOSINOPHILS ABSOLUTE COUNT (BEAKER) (test yrri=073) 0.55 K/ L 0.04-0.54 BASOPHILS ABSOLUTE COUNT (BEAKER) (test cvkw=856) 0.12 K/ L 0.01-0.08 IMMATURE GRANULOCYTES-RELATIVE PERCENT (BEAKER) (test gydr=2610) 1 % 0-1 CBC W/PLT COUNT & AUTO [id number] 11:15:00* Test Item Value Reference Range Comments WHITE BLOOD CELL COUNT (BEAKER) (test ivsk=119) 8.3 K/ L 3.5-10.5 RED BLOOD CELL COUNT (BEAKER) (test ftqe=113) 3.26 M/ L 4.63-6.08 HEMOGLOBIN (BEAKER) (test itdh=140) 8.8 GM/DL 13.7-17.5 HEMATOCRIT (BEAKER) (test vshh=908) 29.0 % 40.1-51.0 MEAN CORPUSCULAR VOLUME (BEAKER) (test czrn=628) 89.0 fL 79.0-92.2 MEAN CORPUSCULAR HEMOGLOBIN (BEAKER) (test yvef=991) 27.0 pg 25.7-32.2 MEAN CORPUSCULAR HEMOGLOBIN CONC (BEAKER) (test dnyc=833) 30.3 GM/DL 32.3-36.5 RED CELL DISTRIBUTION WIDTH (BEAKER) (test dukf=985) 17.1 % 11.6-14.4 PLATELET COUNT (BEAKER) (test sarq=545) 230 K/CU MM 150-450 MEAN PLATELET VOLUME (BEAKER) (test vpff=821) 10.7 fL 9.4-12.4 NUCLEATED RED BLOOD CELLS (BEAKER) (test uwhf=988) 0 /100 WBC 0-0 NEUTROPHILS RELATIVE PERCENT (BEAKER) (test hjsh=978) 63 % LYMPHOCYTES RELATIVE PERCENT (BEAKER) (test raul=107) 17 % MONOCYTES RELATIVE PERCENT (BEAKER) (test ieur=162) 8 % EOSINOPHILS RELATIVE PERCENT (BEAKER) (test xual=979) 10 % BASOPHILS RELATIVE PERCENT (BEAKER) (test arti=319) 1 % NEUTROPHILS ABSOLUTE COUNT (BEAKER) (test rwlu=921) 5.25 K/ L 1.78-5.38 LYMPHOCYTES ABSOLUTE COUNT (BEAKER) (test dnlz=191) 1.45 K/ L 1.32-3.57 MONOCYTES ABSOLUTE COUNT (BEAKER) (test olth=381) 0.70 K/ L 0.30-0.82 EOSINOPHILS ABSOLUTE COUNT (BEAKER) (test lccf=505) 0.82 K/ L 0.04-0.54 BASOPHILS ABSOLUTE COUNT (BEAKER) (test nynj=967) 0.07 K/ L 0.01-0.08 IMMATURE GRANULOCYTES-RELATIVE PERCENT (BEAKER) (test dpdq=8124) 1 % 0-1 PROTHROMBIN TIME/[id number] 11:11:00* Test Item Value Reference Range Comments PROTIME (BEAKER) (test gjtc=089) 21.9 seconds 11.7-14.7 INR (BEAKER) (test zvhk=465) 1.9 <=5.9 RECOMMENDED COUMADIN/WARFARIN INR THERAPY RANGESSTANDARD DOSE: 2.0 - 3.0 Inclu navid: PROPHYLAXIS for venous thrombosis, systemic embolization; TREATMENT for dayna ous thrombosis and/or pulmonary embolus.HIGH RISK: Target INR is 2.5-3.5 for pat ients with mechanical heart valves.[id number] 11:10:00* Test Item Value Reference Range Comments MAGNESIUM (BEAKER) (test mugr=897) 1.9 mg/dL 1.6-2.6 BASIC METABOLIC [id number] 11:10:00* Test Item Value Reference Range Comments SODIUM (BEAKER) (test bqsr=389) 139 meq/L 136-145 POTASSIUM (BEAKER) (test yxra=480) 4.6 meq/L 3.5-5.1 CHLORIDE (BEAKER) (test hnta=483) 109 meq/L 98-107 CO2 (BEAKER) (test urbo=466) 23 meq/L 22-29 BLOOD UREA NITROGEN (BEAKER) (test oweg=086) 34 mg/dL 7-21 CREATININE (BEAKER) (test rozz=091) 1.35 mg/dL 0.57-1.25 GLUCOSE RANDOM (BEAKER) (test dcno=751) 90 mg/dL 70-105 CALCIUM (BEAKER) (test udyy=420) 10.0 mg/dL 8.4-10.2 EGFR (BEAKER) (test ejsg=1726) 51 mL/min/1.73 sq m ESTIMATED GFR IS NOT ACCURATE CREATININE CLEARANCE IN PREDICTING GLOMERULAR FILTRATION RATE. ESTIMATED GFR IS NOT APPLICABLE FOR DIALYSIS PATIENTS. HEPATIC FUNCTION [id number] 11:10:00* Test Item Value Reference Range Comments TOTAL PROTEIN (BEAKER) (test rzwp=173) 6.9 gm/dL 6.0-8.3 ALBUMIN (BEAKER) (test pals=8810) 3.8 g/dL 3.5-5.0 BILIRUBIN TOTAL (BEAKER) (test afrt=618) 0.6 mg/dL 0.2-1.2 BILIRUBIN DIRECT (BEAKER) (test jwwu=464) 0.4 mg/dL 0.1-0.5 ALKALINE PHOSPHATASE (BEAKER) (test zdnc=556) 112 U/L 40-150 AST (SGOT) (BEAKER) (test dysv=841) 22 U/L 5-34 ALT (SGPT) (BEAKER) (test ilva=877) 14 U/L 6-55 LACTATE DEHYDROGENASE (LDH)2018-08-29 11:10:00* Test Item Value Reference Range Comments LACTATE DEHYDROGENASE (BEAKER) (test aczd=778) 202 U/L 125-220 TROPONIN [id number] 07:07:00* Test Item Value Reference Range Comments TROPONIN I (BEAKER) (test vfnf=571) 0.02 ng/mL 0.00-0.03 Troponin I (TnI) levels must be interpreted in the context of the presenting sym ptoms and the clinical findings. Elevated TnI levels indicate myocardial damage, but are not specific for ischemic heart disease. Elevated TnI levels are seen in patients with other cardiac conditions (including myocarditis and congestive h eart failure), and slight TnI elevations occur in patients with other conditions , including sepsis, renal failure, acidosis, acute neurological disease, and per sistent tachyarrhythmia.LACTATE DEHYDROGENASE (LDH)2018-08-27 06:58:00* Test Item Value Reference Range Comments LACTATE DEHYDROGENASE (BEAKER) (test owkc=166) 195 U/L 125-220 BASIC METABOLIC [id number] 06:58:00* Test Item Value Reference Range Comments SODIUM (BEAKER) (test vbhv=973) 143 meq/L 136-145 POTASSIUM (BEAKER) (test iqyu=250) 4.3 meq/L 3.5-5.1 CHLORIDE (BEAKER) (test qwlb=990) 112 meq/L 98-107 CO2 (BEAKER) (test wdlk=068) 22 meq/L 22-29 BLOOD UREA NITROGEN (BEAKER) (test cidj=957) 30 mg/dL 7-21 CREATININE (BEAKER) (test vwgj=463) 1.18 mg/dL 0.57-1.25 GLUCOSE RANDOM (BEAKER) (test djhd=598) 94 mg/dL 70-105 CALCIUM (BEAKER) (test snhj=853) 9.7 mg/dL 8.4-10.2 EGFR (BEAKER) (test dnun=0527) 59 mL/min/1.73 sq m ESTIMATED GFR IS NOT ACCURATE CREATININE CLEARANCE IN PREDICTING GLOMERULAR FILTRATION RATE. ESTIMATED GFR IS NOT APPLICABLE FOR DIALYSIS PATIENTS. RAD, CHEST, 1 VIEW, NON [id number] 06:51:00Reason for exam:->eval lvad complicationsShould this be performed at the bedside?->YesFINAL REPORT RAD, CHEST, 1 VIEW, NON DEPT INDICATION: eval lvad complications COMPARISON: Prior day's exam FINDINGS: Portable frontal view of the chest. IMPRESSION: Support Lines: Stable. Lungs and pleura: Unchanged airspace and pleural opacities. No pneumothorax.Heart and mediastinum: Stable contours. Stable surgical changes.Additional findings: None. Signed: Deborah Leija Verified Date/Time: 08/27/2018 06:51:57 Reading Location: [address] Transitional Reading Room HROMBIN TIME/[id number] 06:49:00* Test Item Value Reference Range Comments PROTIME (BEAKER) (test hjec=195) 20.5 seconds 11.7-14.7 INR (BEAKER) (test tobc=444) 1.8 <=5.9 RECOMMENDED COUMADIN/WARFARIN INR THERAPY RANGESSTANDARD DOSE: 2.0 - 3.0 Inclu navid: PROPHYLAXIS for venous thrombosis, systemic embolization; TREATMENT for dayna ous thrombosis and/or pulmonary embolus.HIGH RISK: Target INR is 2.5-3.5 for pat ients with mechanical heart valves.CBC W/PLT COUNT & AUTO [id number] 06:45:00* Test Item Value Reference Range Comments WHITE BLOOD CELL COUNT (BEAKER) (test ihct=878) 10.1 K/ L 3.5-10.5 RED BLOOD CELL COUNT (BEAKER) (test qtve=199) 3.35 M/ L 4.63-6.08 HEMOGLOBIN (BEAKER) (test tqvl=459) 9.2 GM/DL 13.7-17.5 HEMATOCRIT (BEAKER) (test gqwz=214) 29.5 % 40.1-51.0 MEAN CORPUSCULAR VOLUME (BEAKER) (test qewd=610) 88.1 fL 79.0-92.2 MEAN CORPUSCULAR HEMOGLOBIN (BEAKER) (test nepe=029) 27.5 pg 25.7-32.2 MEAN CORPUSCULAR HEMOGLOBIN CONC (BEAKER) (test ygky=099) 31.2 GM/DL 32.3-36.5 RED CELL DISTRIBUTION WIDTH (BEAKER) (test jhor=137) 17.2 % 11.6-14.4 PLATELET COUNT (BEAKER) (test kdbz=141) 252 K/CU MM 150-450 MEAN PLATELET VOLUME (BEAKER) (test wsqj=738) 10.9 fL 9.4-12.4 NUCLEATED RED BLOOD CELLS (BEAKER) (test hlmn=046) 0 /100 WBC 0-0 NEUTROPHILS RELATIVE PERCENT (BEAKER) (test gneq=654) 61 % LYMPHOCYTES RELATIVE PERCENT (BEAKER) (test jcem=571) 17 % MONOCYTES RELATIVE PERCENT (BEAKER) (test rqbf=091) 10 % EOSINOPHILS RELATIVE PERCENT (BEAKER) (test izpl=369) 11 % BASOPHILS RELATIVE PERCENT (BEAKER) (test ijzy=583) 1 % NEUTROPHILS ABSOLUTE COUNT (BEAKER) (test oahk=230) 6.17 K/ L 1.78-5.38 LYMPHOCYTES ABSOLUTE COUNT (BEAKER) (test dzlz=043) 1.71 K/ L 1.32-3.57 MONOCYTES ABSOLUTE COUNT (BEAKER) (test yswl=980) 1.00 K/ L 0.30-0.82 EOSINOPHILS ABSOLUTE COUNT (BEAKER) (test gepv=685) 1.11 K/ L 0.04-0.54 BASOPHILS ABSOLUTE COUNT (BEAKER) (test oygd=225) 0.10 K/ L 0.01-0.08 IMMATURE GRANULOCYTES-RELATIVE PERCENT (BEAKER) (test zegb=8636) 1 % 0-1 LACTATE DEHYDROGENASE (LDH)2018-08-26 07:23:00* Test Item Value Reference Range Comments LACTATE DEHYDROGENASE (BEAKER) (test agng=513) 203 U/L 125-220 BASIC METABOLIC [id number] 07:23:00* Test Item Value Reference Range Comments SODIUM (BEAKER) (test uumh=037) 137 meq/L 136-145 POTASSIUM (BEAKER) (test mvab=657) 3.8 meq/L 3.5-5.1 CHLORIDE (BEAKER) (test gexx=301) 111 meq/L 98-107 CO2 (BEAKER) (test qqej=512) 19 meq/L 22-29 BLOOD UREA NITROGEN (BEAKER) (test mtjm=359) 22 mg/dL 7-21 CREATININE (BEAKER) (test qdeh=278) 1.00 mg/dL 0.57-1.25 GLUCOSE RANDOM (BEAKER) (test kflb=369) 91 mg/dL 70-105 CALCIUM (BEAKER) (test tzei=143) 8.7 mg/dL 8.4-10.2 EGFR (BEAKER) (test qygn=3073) 72 mL/min/1.73 sq m ESTIMATED GFR IS NOT ACCURATE CREATININE CLEARANCE IN PREDICTING GLOMERULAR FILTRATION RATE. ESTIMATED GFR IS NOT APPLICABLE FOR DIALYSIS PATIENTS. [id number] 06:54:00* Test Item Value Reference Range Comments PARTIAL THROMBOPLASTIN TIME (BEAKER) (test molq=278) 67.0 seconds 22.5-36.0 PROTHROMBIN TIME/[id number] 06:53:00* Test Item Value Reference Range Comments PROTIME (BEAKER) (test feny=964) 21.4 seconds 11.7-14.7 INR (BEAKER) (test wnmr=054) 1.9 <=5.9 RECOMMENDED COUMADIN/WARFARIN INR THERAPY RANGESSTANDARD DOSE: 2.0 - 3.0 Inclu navid: PROPHYLAXIS for venous thrombosis, systemic embolization; TREATMENT for dayna ous thrombosis and/or pulmonary embolus.HIGH RISK: Target INR is 2.5-3.5 for pat ients with mechanical heart valves.CBC W/PLT COUNT & AUTO [id number] 06:44:00* Test Item Value Reference Range Comments WHITE BLOOD CELL COUNT (BEAKER) (test rjez=458) 8.3 K/ L 3.5-10.5 RED BLOOD CELL COUNT (BEAKER) (test fxah=378) 3.02 M/ L 4.63-6.08 HEMOGLOBIN (BEAKER) (test skgh=731) 8.4 GM/DL 13.7-17.5 HEMATOCRIT (BEAKER) (test biaa=789) 27.0 % 40.1-51.0 MEAN CORPUSCULAR VOLUME (BEAKER) (test kkcm=151) 89.4 fL 79.0-92.2 MEAN CORPUSCULAR HEMOGLOBIN (BEAKER) (test hoxl=800) 27.8 pg 25.7-32.2 MEAN CORPUSCULAR HEMOGLOBIN CONC (BEAKER) (test hbha=211) 31.1 GM/DL 32.3-36.5 RED CELL DISTRIBUTION WIDTH (BEAKER) (test jbtx=869) 17.0 % 11.6-14.4 PLATELET COUNT (BEAKER) (test cnwt=448) 213 K/CU MM 150-450 MEAN PLATELET VOLUME (BEAKER) (test hbhl=915) 11.1 fL 9.4-12.4 NUCLEATED RED BLOOD CELLS (BEAKER) (test hqri=636) 0 /100 WBC 0-0 NEUTROPHILS RELATIVE PERCENT (BEAKER) (test ozfm=753) 54 % LYMPHOCYTES RELATIVE PERCENT (BEAKER) (test cout=884) 23 % MONOCYTES RELATIVE PERCENT (BEAKER) (test yern=157) 10 % EOSINOPHILS RELATIVE PERCENT (BEAKER) (test yfpd=974) 12 % BASOPHILS RELATIVE PERCENT (BEAKER) (test pbxz=720) 1 % NEUTROPHILS ABSOLUTE COUNT (BEAKER) (test nsqy=744) 4.50 K/ L 1.78-5.38 LYMPHOCYTES ABSOLUTE COUNT (BEAKER) (test dsdl=202) 1.89 K/ L 1.32-3.57 MONOCYTES ABSOLUTE COUNT (BEAKER) (test djgk=365) 0.82 K/ L 0.30-0.82 EOSINOPHILS ABSOLUTE COUNT (BEAKER) (test pnjl=461) 0.95 K/ L 0.04-0.54 BASOPHILS ABSOLUTE COUNT (BEAKER) (test gslk=731) 0.10 K/ L 0.01-0.08 IMMATURE GRANULOCYTES-RELATIVE PERCENT (BEAKER) (test zete=4594) 0 % 0-1 [id number] 23:58:00* Test Item Value Reference Range Comments PARTIAL THROMBOPLASTIN TIME (BEAKER) (test gfpm=022) 71.7 seconds 22.5-36.0 [id number] 16:16:00* Test Item Value Reference Range Comments PARTIAL THROMBOPLASTIN TIME (BEAKER) (test xeuy=696) 60.6 seconds 22.5-36.0 [id number] 14:25:00* Test Item Value Reference Range Comments PARTIAL THROMBOPLASTIN TIME (BEAKER) (test lrmv=616) 128.6 seconds 22.5-36.0 [id number] 07:20:00* Test Item Value Reference Range Comments PARTIAL THROMBOPLASTIN TIME (BEAKER) (test dyau=852) 85.0 seconds 22.5-36.0 LACTATE DEHYDROGENASE (LDH)2018-08-25 06:27:00* Test Item Value Reference Range Comments LACTATE DEHYDROGENASE (BEAKER) (test cxhg=001) 174 U/L 125-220 BASIC METABOLIC [id number] 06:27:00* Test Item Value Reference Range Comments SODIUM (BEAKER) (test cnyu=955) 138 meq/L 136-145 POTASSIUM (BEAKER) (test llii=074) 4.0 meq/L 3.5-5.1 CHLORIDE (BEAKER) (test lzle=910) 111 meq/L 98-107 CO2 (BEAKER) (test zkgf=891) 20 meq/L 22-29 BLOOD UREA NITROGEN (BEAKER) (test yxpm=690) 20 mg/dL 7-21 CREATININE (BEAKER) (test xqdk=133) 0.91 mg/dL 0.57-1.25 GLUCOSE RANDOM (BEAKER) (test umno=040) 91 mg/dL 70-105 CALCIUM (BEAKER) (test dsve=814) 8.8 mg/dL 8.4-10.2 EGFR (BEAKER) (test tqmd=8339) 80 mL/min/1.73 sq m ESTIMATED GFR IS NOT ACCURATE CREATININE CLEARANCE IN PREDICTING GLOMERULAR FILTRATION RATE. ESTIMATED GFR IS NOT APPLICABLE FOR DIALYSIS PATIENTS. CBC W/PLT COUNT & AUTO [id number] 06:23:00* Test Item Value Reference Range Comments WHITE BLOOD CELL COUNT (BEAKER) (test jhkd=952) 9.4 K/ L 3.5-10.5 RED BLOOD CELL COUNT (BEAKER) (test yezf=901) 3.16 M/ L 4.63-6.08 HEMOGLOBIN (BEAKER) (test qlet=136) 8.7 GM/DL 13.7-17.5 HEMATOCRIT (BEAKER) (test epwa=816) 27.7 % 40.1-51.0 MEAN CORPUSCULAR VOLUME (BEAKER) (test mhei=740) 87.7 fL 79.0-92.2 MEAN CORPUSCULAR HEMOGLOBIN (BEAKER) (test tlob=475) 27.5 pg 25.7-32.2 MEAN CORPUSCULAR HEMOGLOBIN CONC (BEAKER) (test vjab=110) 31.4 GM/DL 32.3-36.5 RED CELL DISTRIBUTION WIDTH (BEAKER) (test xkef=705) 16.8 % 11.6-14.4 PLATELET COUNT (BEAKER) (test gqdi=145) 221 K/CU MM 150-450 MEAN PLATELET VOLUME (BEAKER) (test hsgp=186) 11.2 fL 9.4-12.4 NUCLEATED RED BLOOD CELLS (BEAKER) (test uuim=542) 0 /100 WBC 0-0 NEUTROPHILS RELATIVE PERCENT (BEAKER) (test ebmc=916) 58 % LYMPHOCYTES RELATIVE PERCENT (BEAKER) (test jpzh=412) 21 % MONOCYTES RELATIVE PERCENT (BEAKER) (test pdgk=281) 9 % EOSINOPHILS RELATIVE PERCENT (BEAKER) (test lpwl=966) 10 % BASOPHILS RELATIVE PERCENT (BEAKER) (test ucbi=986) 1 % NEUTROPHILS ABSOLUTE COUNT (BEAKER) (test boln=874) 5.49 K/ L 1.78-5.38 LYMPHOCYTES ABSOLUTE COUNT (BEAKER) (test kbod=363) 2.00 K/ L 1.32-3.57 MONOCYTES ABSOLUTE COUNT (BEAKER) (test zfhp=395) 0.86 K/ L 0.30-0.82 EOSINOPHILS ABSOLUTE COUNT (BEAKER) (test lyqe=974) 0.97 K/ L 0.04-0.54 BASOPHILS ABSOLUTE COUNT (BEAKER) (test psji=171) 0.07 K/ L 0.01-0.08 IMMATURE GRANULOCYTES-RELATIVE PERCENT (BEAKER) (test kjee=2424) 0 % 0-1 [id number] 05:46:00* Test Item Value Reference Range Comments PARTIAL THROMBOPLASTIN TIME (BEAKER) (test vosi=915) 152.6 seconds 22.5-36.0 PROTHROMBIN TIME/[id number] 05:39:00* Test Item Value Reference Range Comments PROTIME (BEAKER) (test bevu=011) 19.4 seconds 11.7-14.7 INR (BEAKER) (test psso=233) 1.6 <=5.9 RECOMMENDED COUMADIN/WARFARIN INR THERAPY RANGESSTANDARD DOSE: 2.0 - 3.0 Inclu navid: PROPHYLAXIS for venous thrombosis, systemic embolization; TREATMENT for dayna ous thrombosis and/or pulmonary embolus.HIGH RISK: Target INR is 2.5-3.5 for pat ients with mechanical heart valves.[id number] 18:14:00* Test Item Value Reference Range Comments PARTIAL THROMBOPLASTIN TIME (BEAKER) (test cook=490) 39.4 seconds 22.5-36.0 PROTHROMBIN TIME/[id number] 17:00:00* Test Item Value Reference Range Comments PROTIME (BEAKER) (test dysd=887) 17.9 seconds 11.7-14.7 INR (BEAKER) (test kqzr=414) 1.4 <=5.9 RECOMMENDED COUMADIN/WARFARIN INR THERAPY RANGESSTANDARD DOSE: 2.0 - 3.0 Inclu navid: PROPHYLAXIS for venous thrombosis, systemic embolization; TREATMENT for dayna ous thrombosis and/or pulmonary embolus.HIGH RISK: Target INR is 2.5-3.5 for pat ients with mechanical heart valves.[id number] 06:29:00* Test Item Value Reference Range Comments PARTIAL THROMBOPLASTIN TIME (BEAKER) (test jygh=536) 129.2 seconds 22.5-36.0 LACTATE DEHYDROGENASE (LDH)2018-08-24 05:58:00* Test Item Value Reference Range Comments LACTATE DEHYDROGENASE (BEAKER) (test chtg=782) 240 U/L 125-220 Specimen slightly hemolyzed [id number] 05:57:00* Test Item Value Reference Range Comments MAGNESIUM (BEAKER) (test kjdj=982) 2.0 mg/dL 1.6-2.6 Specimen slightly hemolyzed BASIC METABOLIC [id number] 05:57:00* Test Item Value Reference Range Comments SODIUM (BEAKER) (test wibl=384) 140 meq/L 136-145 POTASSIUM (BEAKER) (test oaur=253) 4.1 meq/L 3.5-5.1 Specimen slightly hemolyzed CHLORIDE (BEAKER) (test wdcb=264) 113 meq/L 98-107 CO2 (BEAKER) (test erci=490) 19 meq/L 22-29 BLOOD UREA NITROGEN (BEAKER) (test fyej=896) 27 mg/dL 7-21 CREATININE (BEAKER) (test sfva=077) 1.11 mg/dL 0.57-1.25 Specimen slightly hemolyzed GLUCOSE RANDOM (BEAKER) (test yrxy=293) 121 mg/dL 70-105 CALCIUM (BEAKER) (test rdcb=360) 8.9 mg/dL 8.4-10.2 EGFR (BEAKER) (test gcqe=4275) 64 mL/min/1.73 sq m ESTIMATED GFR IS NOT ACCURATE CREATININE CLEARANCE IN PREDICTING GLOMERULAR FILTRATION RATE. ESTIMATED GFR IS NOT APPLICABLE FOR DIALYSIS PATIENTS. PROTHROMBIN TIME/[id number] 05:48:00* Test Item Value Reference Range Comments PROTIME (BEAKER) (test bqor=312) 18.5 seconds 11.7-14.7 INR (BEAKER) (test xybs=482) 1.5 <=5.9 RECOMMENDED COUMADIN/WARFARIN INR THERAPY RANGESSTANDARD DOSE: 2.0 - 3.0 Inclu navid: PROPHYLAXIS for venous thrombosis, systemic embolization; TREATMENT for dayna ous thrombosis and/or pulmonary embolus.HIGH RISK: Target INR is 2.5-3.5 for pat ients with mechanical heart valves.CBC W/PLT COUNT & AUTO [id number] 05:48:00* Test Item Value Reference Range Comments WHITE BLOOD CELL COUNT (BEAKER) (test tgac=645) 9.6 K/ L 3.5-10.5 RED BLOOD CELL COUNT (BEAKER) (test svuv=317) 3.22 M/ L 4.63-6.08 HEMOGLOBIN (BEAKER) (test edag=633) 8.7 GM/DL 13.7-17.5 HEMATOCRIT (BEAKER) (test fgcx=981) 28.4 % 40.1-51.0 MEAN CORPUSCULAR VOLUME (BEAKER) (test euhu=493) 88.2 fL 79.0-92.2 MEAN CORPUSCULAR HEMOGLOBIN (BEAKER) (test weka=158) 27.0 pg 25.7-32.2 MEAN CORPUSCULAR HEMOGLOBIN CONC (BEAKER) (test impw=848) 30.6 GM/DL 32.3-36.5 RED CELL DISTRIBUTION WIDTH (BEAKER) (test cehz=178) 16.8 % 11.6-14.4 PLATELET COUNT (BEAKER) (test nmbo=063) 209 K/CU MM 150-450 MEAN PLATELET VOLUME (BEAKER) (test cxhb=895) 11.3 fL 9.4-12.4 NUCLEATED RED BLOOD CELLS (BEAKER) (test fldr=251) 0 /100 WBC 0-0 NEUTROPHILS RELATIVE PERCENT (BEAKER) (test edns=315) 58 % LYMPHOCYTES RELATIVE PERCENT (BEAKER) (test vtza=596) 23 % MONOCYTES RELATIVE PERCENT (BEAKER) (test dtls=431) 9 % EOSINOPHILS RELATIVE PERCENT (BEAKER) (test kdqv=582) 9 % BASOPHILS RELATIVE PERCENT (BEAKER) (test gjqe=594) 1 % NEUTROPHILS ABSOLUTE COUNT (BEAKER) (test qmdh=702) 5.57 K/ L 1.78-5.38 LYMPHOCYTES ABSOLUTE COUNT (BEAKER) (test ampf=866) 2.18 K/ L 1.32-3.57 MONOCYTES ABSOLUTE COUNT (BEAKER) (test oaar=937) 0.89 K/ L 0.30-0.82 EOSINOPHILS ABSOLUTE COUNT (BEAKER) (test kpim=535) 0.86 K/ L 0.04-0.54 BASOPHILS ABSOLUTE COUNT (BEAKER) (test jqya=545) 0.08 K/ L 0.01-0.08 IMMATURE GRANULOCYTES-RELATIVE PERCENT (BEAKER) (test xguq=5037) 0 % 0-1 [id number] 22:52:00* Test Item Value Reference Range Comments PARTIAL THROMBOPLASTIN TIME (BEAKER) (test ybzn=424) 90.4 seconds 22.5-36.0 [id number] 16:43:00* Test Item Value Reference Range Comments PARTIAL THROMBOPLASTIN TIME (BEAKER) (test ryyd=393) 42.4 seconds 22.5-36.0 Prior to initiating [id number] 05:11:00* Test Item Value Reference Range Comments MAGNESIUM (BEAKER) (test yqyn=006) 1.9 mg/dL 1.6-2.6 BASIC METABOLIC [id number] 05:11:00* Test Item Value Reference Range Comments SODIUM (BEAKER) (test xhco=588) 141 meq/L 136-145 POTASSIUM (BEAKER) (test hajm=018) 4.1 meq/L 3.5-5.1 CHLORIDE (BEAKER) (test ghrh=265) 111 meq/L 98-107 CO2 (BEAKER) (test fxxy=924) 21 meq/L 22-29 BLOOD UREA NITROGEN (BEAKER) (test hnih=952) 24 mg/dL 7-21 CREATININE (BEAKER) (test nweg=699) 1.01 mg/dL 0.57-1.25 GLUCOSE RANDOM (BEAKER) (test kyhn=646) 78 mg/dL 70-105 CALCIUM (BEAKER) (test lkan=871) 9.2 mg/dL 8.4-10.2 EGFR (BEAKER) (test cjls=0842) 71 mL/min/1.73 sq m ESTIMATED GFR IS NOT ACCURATE CREATININE CLEARANCE IN PREDICTING GLOMERULAR FILTRATION RATE. ESTIMATED GFR IS NOT APPLICABLE FOR DIALYSIS PATIENTS. LACTATE DEHYDROGENASE (LDH)2018-08-23 05:11:00* Test Item Value Reference Range Comments LACTATE DEHYDROGENASE (BEAKER) (test beew=598) 192 U/L 125-220 PROTHROMBIN [id number] 05:00:00* Test Item Value Reference Range Comments PROTIME (BEAKER) (test tlcq=384) 20.3 seconds 11.7-14.7 INR (BEAKER) (test spes=290) 1.7 <=5.9 RECOMMENDED COUMADIN/WARFARIN INR THERAPY RANGESSTANDARD DOSE: 2.0 - 3.0 Inclu navid: PROPHYLAXIS for venous thrombosis, systemic embolization; TREATMENT for dayna ous thrombosis and/or pulmonary embolus.HIGH RISK: Target INR is 2.5-3.5 for pat ients with mechanical heart valves.CBC W/PLT COUNT & AUTO [id number] 04:42:00* Test Item Value Reference Range Comments WHITE BLOOD CELL COUNT (BEAKER) (test zeui=797) 7.7 K/ L 3.5-10.5 RED BLOOD CELL COUNT (BEAKER) (test euyg=239) 3.35 M/ L 4.63-6.08 HEMOGLOBIN (BEAKER) (test dokr=585) 9.0 GM/DL 13.7-17.5 HEMATOCRIT (BEAKER) (test fgxa=080) 29.4 % 40.1-51.0 MEAN CORPUSCULAR VOLUME (BEAKER) (test jlcu=132) 87.8 fL 79.0-92.2 MEAN CORPUSCULAR HEMOGLOBIN (BEAKER) (test towq=339) 26.9 pg 25.7-32.2 MEAN CORPUSCULAR HEMOGLOBIN CONC (BEAKER) (test dzts=255) 30.6 GM/DL 32.3-36.5 RED CELL DISTRIBUTION WIDTH (BEAKER) (test pfmo=698) 16.7 % 11.6-14.4 PLATELET COUNT (BEAKER) (test oakx=441) 217 K/CU MM 150-450 MEAN PLATELET VOLUME (BEAKER) (test flbm=855) 11.1 fL 9.4-12.4 NUCLEATED RED BLOOD CELLS (BEAKER) (test wmly=387) 0 /100 WBC 0-0 NEUTROPHILS RELATIVE PERCENT (BEAKER) (test mmjt=170) 64 % LYMPHOCYTES RELATIVE PERCENT (BEAKER) (test zuns=256) 17 % MONOCYTES RELATIVE PERCENT (BEAKER) (test gvxk=910) 9 % EOSINOPHILS RELATIVE PERCENT (BEAKER) (test yndf=179) 9 % BASOPHILS RELATIVE PERCENT (BEAKER) (test trkf=113) 1 % NEUTROPHILS ABSOLUTE COUNT (BEAKER) (test lvjl=045) 4.92 K/ L 1.78-5.38 LYMPHOCYTES ABSOLUTE COUNT (BEAKER) (test dldw=362) 1.34 K/ L 1.32-3.57 MONOCYTES ABSOLUTE COUNT (BEAKER) (test jgkv=357) 0.67 K/ L 0.30-0.82 EOSINOPHILS ABSOLUTE COUNT (BEAKER) (test vvrv=045) 0.72 K/ L 0.04-0.54 BASOPHILS ABSOLUTE COUNT (BEAKER) (test gnxs=747) 0.07 K/ L 0.01-0.08 IMMATURE GRANULOCYTES-RELATIVE PERCENT (BEAKER) (test gsqx=8419) 0 % 0-1 [id number] 06:05:00* Test Item Value Reference Range Comments MAGNESIUM (BEAKER) (test tkas=981) 1.8 mg/dL 1.6-2.6 BASIC METABOLIC [id number] 06:05:00* Test Item Value Reference Range Comments SODIUM (BEAKER) (test bswk=133) 141 meq/L 136-145 POTASSIUM (BEAKER) (test wjtx=481) 4.0 meq/L 3.5-5.1 CHLORIDE (BEAKER) (test ukla=160) 111 meq/L 98-107 CO2 (BEAKER) (test itgb=833) 23 meq/L 22-29 BLOOD UREA NITROGEN (BEAKER) (test lvnz=347) 34 mg/dL 7-21 CREATININE (BEAKER) (test qtqa=793) 1.14 mg/dL 0.57-1.25 GLUCOSE RANDOM (BEAKER) (test heol=440) 81 mg/dL 70-105 CALCIUM (BEAKER) (test knqz=971) 9.2 mg/dL 8.4-10.2 EGFR (BEAKER) (test tdtp=1418) 62 mL/min/1.73 sq m ESTIMATED GFR IS NOT ACCURATE CREATININE CLEARANCE IN PREDICTING GLOMERULAR FILTRATION RATE. ESTIMATED GFR IS NOT APPLICABLE FOR DIALYSIS PATIENTS. LACTATE DEHYDROGENASE (LDH)2018-08-22 06:05:00* Test Item Value Reference Range Comments LACTATE DEHYDROGENASE (BEAKER) (test bqyr=582) 222 U/L 125-220 PROTHROMBIN TIME/[id number] 05:50:00* Test Item Value Reference Range Comments PROTIME (BEAKER) (test uyib=294) 25.4 seconds 11.7-14.7 INR (BEAKER) (test gkjw=031) 2.3 <=5.9 RECOMMENDED COUMADIN/WARFARIN INR THERAPY RANGESSTANDARD DOSE: 2.0 - 3.0 Inclu navid: PROPHYLAXIS for venous thrombosis, systemic embolization; TREATMENT for dayna ous thrombosis and/or pulmonary embolus.HIGH RISK: Target INR is 2.5-3.5 for pat ients with mechanical heart valves.CBC W/PLT COUNT & AUTO [id number] 05:43:00* Test Item Value Reference Range Comments WHITE BLOOD CELL COUNT (BEAKER) (test jisx=098) 7.8 K/ L 3.5-10.5 RED BLOOD CELL COUNT (BEAKER) (test sbfl=863) 3.16 M/ L 4.63-6.08 HEMOGLOBIN (BEAKER) (test ybdj=963) 8.5 GM/DL 13.7-17.5 HEMATOCRIT (BEAKER) (test efhp=367) 27.6 % 40.1-51.0 MEAN CORPUSCULAR VOLUME (BEAKER) (test cbjl=365) 87.3 fL 79.0-92.2 MEAN CORPUSCULAR HEMOGLOBIN (BEAKER) (test josr=882) 26.9 pg 25.7-32.2 MEAN CORPUSCULAR HEMOGLOBIN CONC (BEAKER) (test curc=701) 30.8 GM/DL 32.3-36.5 RED CELL DISTRIBUTION WIDTH (BEAKER) (test bvmy=265) 17.0 % 11.6-14.4 PLATELET COUNT (BEAKER) (test fyxs=204) 200 K/CU MM 150-450 MEAN PLATELET VOLUME (BEAKER) (test hiwy=191) 10.7 fL 9.4-12.4 NUCLEATED RED BLOOD CELLS (BEAKER) (test sxsh=348) 0 /100 WBC 0-0 NEUTROPHILS RELATIVE PERCENT (BEAKER) (test yjek=369) 59 % LYMPHOCYTES RELATIVE PERCENT (BEAKER) (test knxk=699) 22 % MONOCYTES RELATIVE PERCENT (BEAKER) (test lkvr=419) 9 % EOSINOPHILS RELATIVE PERCENT (BEAKER) (test yvwz=696) 10 % BASOPHILS RELATIVE PERCENT (BEAKER) (test hvdp=677) 1 % NEUTROPHILS ABSOLUTE COUNT (BEAKER) (test oiis=379) 4.57 K/ L 1.78-5.38 LYMPHOCYTES ABSOLUTE COUNT (BEAKER) (test jygu=958) 1.69 K/ L 1.32-3.57 MONOCYTES ABSOLUTE COUNT (BEAKER) (test lhbi=968) 0.66 K/ L 0.30-0.82 EOSINOPHILS ABSOLUTE COUNT (BEAKER) (test xyss=440) 0.74 K/ L 0.04-0.54 BASOPHILS ABSOLUTE COUNT (BEAKER) (test dvae=530) 0.09 K/ L 0.01-0.08 IMMATURE GRANULOCYTES-RELATIVE PERCENT (BEAKER) (test mamw=2765) 0 % 0-1 TROPONIN [id number] 18:12:00* Test Item Value Reference Range Comments TROPONIN I (BEAKER) (test tgbk=928) 0.02 ng/mL 0.00-0.03 Troponin I (TnI) levels must be interpreted in the context of the presenting sym ptoms and the clinical findings. Elevated TnI levels indicate myocardial damage, but are not specific for ischemic heart disease. Elevated TnI levels are seen in patients with other cardiac conditions (including myocarditis and congestive h eart failure), and slight TnI elevations occur in patients with other conditions , including sepsis, renal failure, acidosis, acute neurological disease, and per sistent tachyarrhythmia.B-TYPE NATRIURETIC FACTOR (BNP)2018-08-21 18:07:00* Test Item Value Reference Range Comments B-TYPE NATRIURETIC PEPTIDE (BEAKER) (test uoep=770) 1290 pg/mL 0-100 BASIC METABOLIC [id number] 18:02:00* Test Item Value Reference Range Comments SODIUM (BEAKER) (test znfx=391) 141 meq/L 136-145 POTASSIUM (BEAKER) (test nace=111) 4.2 meq/L 3.5-5.1 CHLORIDE (BEAKER) (test kjhc=676) 110 meq/L 98-107 CO2 (BEAKER) (test vuow=638) 27 meq/L 22-29 BLOOD UREA NITROGEN (BEAKER) (test kdjs=660) 40 mg/dL 7-21 CREATININE (BEAKER) (test hzua=167) 1.32 mg/dL 0.57-1.25 GLUCOSE RANDOM (BEAKER) (test douv=684) 93 mg/dL 70-105 CALCIUM (BEAKER) (test jpqz=267) 9.3 mg/dL 8.4-10.2 EGFR (BEAKER) (test dkck=7451) 52 mL/min/1.73 sq m ESTIMATED GFR IS NOT ACCURATE CREATININE CLEARANCE IN PREDICTING GLOMERULAR FILTRATION RATE. ESTIMATED GFR IS NOT APPLICABLE FOR DIALYSIS PATIENTS. CBC W/PLT COUNT & AUTO [id number] 17:47:00* Test Item Value Reference Range Comments WHITE BLOOD CELL COUNT (BEAKER) (test ozmw=588) 8.6 K/ L 3.5-10.5 RED BLOOD CELL COUNT (BEAKER) (test rpyn=554) 3.36 M/ L 4.63-6.08 HEMOGLOBIN (BEAKER) (test kizv=650) 9.2 GM/DL 13.7-17.5 HEMATOCRIT (BEAKER) (test hauu=089) 29.5 % 40.1-51.0 MEAN CORPUSCULAR VOLUME (BEAKER) (test ktrn=046) 87.8 fL 79.0-92.2 MEAN CORPUSCULAR HEMOGLOBIN (BEAKER) (test dnyd=279) 27.4 pg 25.7-32.2 MEAN CORPUSCULAR HEMOGLOBIN CONC (BEAKER) (test wopj=630) 31.2 GM/DL 32.3-36.5 RED CELL DISTRIBUTION WIDTH (BEAKER) (test grer=489) 17.2 % 11.6-14.4 PLATELET COUNT (BEAKER) (test uovx=306) 221 K/CU MM 150-450 MEAN PLATELET VOLUME (BEAKER) (test xkcs=872) 10.8 fL 9.4-12.4 NUCLEATED RED BLOOD CELLS (BEAKER) (test reab=424) 0 /100 WBC 0-0 NEUTROPHILS RELATIVE PERCENT (BEAKER) (test knpl=407) 65 % LYMPHOCYTES RELATIVE PERCENT (BEAKER) (test ndww=829) 16 % MONOCYTES RELATIVE PERCENT (BEAKER) (test rrvu=370) 9 % EOSINOPHILS RELATIVE PERCENT (BEAKER) (test qdpb=213) 9 % BASOPHILS RELATIVE PERCENT (BEAKER) (test zrds=097) 1 % NEUTROPHILS ABSOLUTE COUNT (BEAKER) (test esdz=872) 5.61 K/ L 1.78-5.38 LYMPHOCYTES ABSOLUTE COUNT (BEAKER) (test rjlm=210) 1.36 K/ L 1.32-3.57 MONOCYTES ABSOLUTE COUNT (BEAKER) (test jxtf=963) 0.77 K/ L 0.30-0.82 EOSINOPHILS ABSOLUTE COUNT (BEAKER) (test atea=235) 0.78 K/ L 0.04-0.54 BASOPHILS ABSOLUTE COUNT (BEAKER) (test iirb=545) 0.09 K/ L 0.01-0.08 IMMATURE GRANULOCYTES-RELATIVE PERCENT (BEAKER) (test ucfx=7279) 0 % 0-1 [id number] 17:46:00* Test Item Value Reference Range Comments PROTIME (BEAKER) (test ozgr=627) 30.3 seconds 11.7-14.7 INR (BEAKER) (test lvyz=379) 2.9 <=5.9 PARTIAL THROMBOPLASTIN TIME (BEAKER) (test ncqd=110) 50.9 seconds 22.5-36.0 RECOMMENDED COUMADIN/WARFARIN INR THERAPY RANGESSTANDARD DOSE: 2.0 - 3.0 Inclu navid: PROPHYLAXIS for venous thrombosis, systemic embolization; TREATMENT for dayna ous thrombosis and/or pulmonary embolus.HIGH RISK: Target INR is 2.5-3.5 for pat ients with mechanical heart valves.RAD, CHEST, 1 VIEW, NON [id number] 17:26:00Reason for exam:->CHEST PAINShould this be performed at the bedside?-> YesFINAL REPORT TECHNIQUE: Frontal view of the chest. INDICATION: 83-year-old man with chest pain. COMPARISON: Chest radiographs 02/23/2018. FINDINGS: LINES/TUBES: Unchanged implanted cardiac device and left ventricular assist device. LUNGS: Mild streaky airspace opacities in the left lower lung zone. PLEURA: No pneumothorax or significant pleural effusion. HEART AND MEDIASTINUM: Unchanged prominence of the cardiac silhouette. SOFT TISSUES AND BONES: Unchanged median sternotomy wires. Soft tissues are unremarkable. IMPRESSION:Mild left basilar airspace opacities, likely atelectasis. Pneumonia cannot be excluded. Signed: Nikkie Capps MDReport Verified Date/Time: 08/21/2018 17:26:25 Reading Location: [facility] C013 Consult Reading Room TE, [id number] 13:58:00* Test Item Value Reference Range Comments FOLATE (BEAKER) (test bmne=518) > ng/mL >=7.0 HEPATIC FUNCTION [id number] 12:20:00* Test Item Value Reference Range Comments TOTAL PROTEIN (BEAKER) (test pctj=990) 7.0 gm/dL 6.0-8.3 ALBUMIN (BEAKER) (test fdwu=5709) 3.9 g/dL 3.5-5.0 BILIRUBIN TOTAL (BEAKER) (test fujp=442) 0.9 mg/dL 0.2-1.2 BILIRUBIN DIRECT (BEAKER) (test dbor=059) 0.5 mg/dL 0.1-0.5 ALKALINE PHOSPHATASE (BEAKER) (test odrx=468) 110 U/L 40-150 AST (SGOT) (BEAKER) (test agkm=020) 20 U/L 5-34 ALT (SGPT) (BEAKER) (test blgx=497) 12 U/L 6-55 BASIC METABOLIC [id number] 11:33:00* Test Item Value Reference Range Comments SODIUM (BEAKER) (test lmot=554) 143 meq/L 136-145 POTASSIUM (BEAKER) (test bnna=291) 4.6 meq/L 3.5-5.1 CHLORIDE (BEAKER) (test vajw=325) 109 meq/L 98-107 CO2 (BEAKER) (test kgvx=045) 27 meq/L 22-29 BLOOD UREA NITROGEN (BEAKER) (test jipq=778) 38 mg/dL 7-21 CREATININE (BEAKER) (test tfyq=708) 1.27 mg/dL 0.57-1.25 GLUCOSE RANDOM (BEAKER) (test vntq=004) 91 mg/dL 70-105 CALCIUM (BEAKER) (test sdhw=981) 9.9 mg/dL 8.4-10.2 EGFR (BEAKER) (test ryju=6448) 54 mL/min/1.73 sq m ESTIMATED GFR IS NOT ACCURATE CREATININE CLEARANCE IN PREDICTING GLOMERULAR FILTRATION RATE. ESTIMATED GFR IS NOT APPLICABLE FOR DIALYSIS PATIENTS. LACTATE DEHYDROGENASE (LDH)2018-08-15 11:33:00* Test Item Value Reference Range Comments LACTATE DEHYDROGENASE (BEAKER) (test rybt=089) 207 U/L 125-220 IRON, TIBC, % SAT. (WITHOUT FERRITIN)2018-08-15 11:33:00* Test Item Value Reference Range Comments IRON (BEAKER) (test qokj=967) 48.0 ug/dL 40.0-160.0 TOTAL IRON BINDING CAPACITY (BEAKER) (test suto=492) 365 ug/dL 250-450 IRON % SATURATION (2) (BEAKER) (test grkf=5712) 13 % 20-55 [id number] 11:32:00* Test Item Value Reference Range Comments MAGNESIUM (BEAKER) (test bwfh=885) 2.1 mg/dL 1.6-2.6 PROTHROMBIN [id number] 11:23:00* Test Item Value Reference Range Comments PROTIME (BEAKER) (test lesl=049) 19.3 seconds 11.7-14.7 INR (BEAKER) (test npfj=446) 1.6 <=5.9 RECOMMENDED COUMADIN/WARFARIN INR THERAPY RANGESSTANDARD DOSE: 2.0 - 3.0 Inclu navid: PROPHYLAXIS for venous thrombosis, systemic embolization; TREATMENT for dayna ous thrombosis and/or pulmonary embolus.HIGH RISK: Target INR is 2.5-3.5 for pat ients with mechanical heart valves.CBC W/PLT COUNT & AUTO [id number] 11:19:00* Test Item Value Reference Range Comments WHITE BLOOD CELL COUNT (BEAKER) (test uvts=590) 8.1 K/ L 3.5-10.5 RED BLOOD CELL COUNT (BEAKER) (test kbvu=903) 3.77 M/ L 4.63-6.08 HEMOGLOBIN (BEAKER) (test tatv=098) 10.3 GM/DL 13.7-17.5 HEMATOCRIT (BEAKER) (test wjnq=066) 33.1 % 40.1-51.0 MEAN CORPUSCULAR VOLUME (BEAKER) (test lulr=581) 87.8 fL 79.0-92.2 MEAN CORPUSCULAR HEMOGLOBIN (BEAKER) (test sqvt=419) 27.3 pg 25.7-32.2 MEAN CORPUSCULAR HEMOGLOBIN CONC (BEAKER) (test nyfs=790) 31.1 GM/DL 32.3-36.5 RED CELL DISTRIBUTION WIDTH (BEAKER) (test mjrs=582) 17.2 % 11.6-14.4 PLATELET COUNT (BEAKER) (test kyvp=903) 217 K/CU MM 150-450 MEAN PLATELET VOLUME (BEAKER) (test ggck=776) 11.0 fL 9.4-12.4 NUCLEATED RED BLOOD CELLS (BEAKER) (test jfmp=526) 0 /100 WBC 0-0 NEUTROPHILS RELATIVE PERCENT (BEAKER) (test zdrn=820) 63 % LYMPHOCYTES RELATIVE PERCENT (BEAKER) (test skzo=672) 18 % MONOCYTES RELATIVE PERCENT (BEAKER) (test tyyi=580) 9 % EOSINOPHILS RELATIVE PERCENT (BEAKER) (test xymw=867) 10 % BASOPHILS RELATIVE PERCENT (BEAKER) (test jrum=120) 1 % NEUTROPHILS ABSOLUTE COUNT (BEAKER) (test okkc=838) 5.09 K/ L 1.78-5.38 LYMPHOCYTES ABSOLUTE COUNT (BEAKER) (test fqer=967) 1.43 K/ L 1.32-3.57 MONOCYTES ABSOLUTE COUNT (BEAKER) (test lyki=638) 0.69 K/ L 0.30-0.82 EOSINOPHILS ABSOLUTE COUNT (BEAKER) (test cflu=008) 0.77 K/ L 0.04-0.54 BASOPHILS ABSOLUTE COUNT (BEAKER) (test rhma=915) 0.10 K/ L 0.01-0.08 IMMATURE GRANULOCYTES-RELATIVE PERCENT (BEAKER) (test hexy=3209) 0 % 0-1 CT, CHEST, WITHOUT [id number] 17:17:00FINAL REPORT TECHNIQUE: CT scan of the chest WITHOUT intravenous contrast. Dose modulation, iterative reconstruction, and/or weight-based adjustment of the mA/kV was utilized to reduce the radiation dose to as low as reasonably achievable. INDICATION: Follow-up of mediastinal lymphadenopathy. COMPARISON: CT from 09/20/2017 and 06/08/2017. FINDINGS: ABSENCE OF INTRAVENOUS CONTRAST DECREASES SENSITIVITY FOR DETECTION OF FOCAL LESIONS AND VASCULAR PATHOLOGY. LINES/TUBES: Unchanged positioning of the left ventricular assist device with device in the left ventricular apex and cannula and the aorta. Left chest pacer /ICD with leads in the right atrium and ventricle LUNGS AND AIRWAYS: Bibasilar s ubsegmental atelectasis. An area of pleural-based spiculation in the lateral lef t lower lobe measures 1.5 cm was not definitely seen on the prior examination.. PLEURA: Trace residual pleural effusions. HEART AND MEDIASTINUM: The visualized thyroid gland is normal. The prominent mediastinal lymph nodes are unchanged. Th e largest is an aortopulmonary window lymph node which measures 0.8 cm on axial image 20, previously 1.1 cm. A left lower paratracheal lymph node measures 1.1 c m in short axis dimension, unchanged.A right lower paratracheal lymph node measu res 0.9 cm on axial image 21, unchanged. The heart is globally enlarged. Severe coronary arterial atherosclerosis with stents in the left anterior descending co ronary artery. SOFT TISSUES AND BONES: Bilateral gynecomastia. Prior median ster notomy. UPPER ABDOMEN: Small volume perihepatic ascites. IMPRESSION: 1.The prom inent lymph nodes in the mediastinum are unchanged and likely reactive. 2.The le ft pleural effusion has decreased in size with only a trace residual left effusi on. 3.The spiculated region in the left lateral lower lobe is most likely scar w hich measures 1.5 cm. However, since this is new compared to the prior examinati on, a three month follow-up CT is recommended to document stability and exclude a neoplasm. Signed: Elenita Salinas MDReport Verified Date/Time: 07/26/2018 17:17:45 Reading Location: [facility] C0[facility] CT Body Reading Room , BRAIN, WITHOUT CONTRAST 2018-07-26 15:19:00FINAL REPORT CT head without contrast 07/26/2018 3:12 PM CLINICAL HISTORY: follow up TECHNIQUE: Axial noncontrast CT images through the head were obtained. This examination was performed according to our departmental dose optimization program, which includes automated exposure control, adjustment of the mA and/or kV according to patient size, and/or use of iterated reconstruction technique. COMPARISON: 05/16/2018 FINDINGS: There is no hemorrhage, extra-axial collection, mass, hydrocephalus, or midline shift. 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 There is atherosclerotic calcification of the intracranial arterial vasculature. There is generalized parenchymal volume loss. The visualized paranasal sinuses and mastoid air cells are well aerated. The skull is intact. IMPRESSION: No intracranial hemorrhage or mass effect. Chronic appearing microvascular and involutional changes. If concern for acute pathology persists, further evaluation with MRI is recommended. Signed: Leonora Kincaid Verified Date/Time: 07/26/2018 15:19:34 Reading Location: [facility] Radiology Reading Room [id number] 13:10:00* Test Item Value Reference Range Comments MAGNESIUM (BEAKER) (test dvom=054) 2.2 mg/dL 1.6-2.6 BASIC METABOLIC [id number] 13:10:00* Test Item Value Reference Range Comments SODIUM (BEAKER) (test ydzd=793) 139 meq/L 136-145 POTASSIUM (BEAKER) (test edtj=533) 4.7 meq/L 3.5-5.1 CHLORIDE (BEAKER) (test qpjb=878) 109 meq/L 98-107 CO2 (BEAKER) (test dnsh=212) 26 meq/L 22-29 BLOOD UREA NITROGEN (BEAKER) (test qlic=146) 31 mg/dL 7-21 CREATININE (BEAKER) (test obau=312) 1.25 mg/dL 0.57-1.25 GLUCOSE RANDOM (BEAKER) (test ygra=021) 85 mg/dL 70-105 CALCIUM (BEAKER) (test gmcy=253) 9.8 mg/dL 8.4-10.2 EGFR (BEAKER) (test tnbh=3223) 55 mL/min/1.73 sq m ESTIMATED GFR IS NOT ACCURATE CREATININE CLEARANCE IN PREDICTING GLOMERULAR FILTRATION RATE. ESTIMATED GFR IS NOT APPLICABLE FOR DIALYSIS PATIENTS. HEPATIC FUNCTION [id number] 13:10:00* Test Item Value Reference Range Comments TOTAL PROTEIN (BEAKER) (test xfvc=116) 7.2 gm/dL 6.0-8.3 ALBUMIN (BEAKER) (test zdvc=4469) 3.9 g/dL 3.5-5.0 BILIRUBIN TOTAL (BEAKER) (test umyz=330) 1.0 mg/dL 0.2-1.2 BILIRUBIN DIRECT (BEAKER) (test emnu=879) 0.5 mg/dL 0.1-0.5 ALKALINE PHOSPHATASE (BEAKER) (test vitc=141) 113 U/L 40-150 AST (SGOT) (BEAKER) (test vswd=045) 36 U/L 5-34 ALT (SGPT) (BEAKER) (test zqvv=482) 16 U/L 6-55 LACTATE DEHYDROGENASE (LDH)2018-07-25 13:10:00* Test Item Value Reference Range Comments LACTATE DEHYDROGENASE (BEAKER) (test okxd=973) 358 U/L 125-220 PROTHROMBIN [id number] 12:49:00* Test Item Value Reference Range Comments PROTIME (BEAKER) (test hbbu=498) 21.8 seconds 11.7-14.7 INR (BEAKER) (test txwp=101) 1.9 <=5.9 RECOMMENDED COUMADIN/WARFARIN INR THERAPY RANGESSTANDARD DOSE: 2.0 - 3.0 Inclu navid: PROPHYLAXIS for venous thrombosis, systemic embolization; TREATMENT for dayna ous thrombosis and/or pulmonary embolus.HIGH RISK: Target INR is 2.5-3.5 for pat ients with mechanical heart valves.CBC W/PLT COUNT & AUTO [id number] 12:42:00* Test Item Value Reference Range Comments WHITE BLOOD CELL COUNT (BEAKER) (test ldub=234) 9.8 K/ L 3.5-10.5 RED BLOOD CELL COUNT (BEAKER) (test qtpf=616) 3.85 M/ L 4.63-6.08 HEMOGLOBIN (BEAKER) (test upbe=428) 10.3 GM/DL 13.7-17.5 HEMATOCRIT (BEAKER) (test gxyv=679) 33.9 % 40.1-51.0 MEAN CORPUSCULAR VOLUME (BEAKER) (test kezg=160) 88.1 fL 79.0-92.2 MEAN CORPUSCULAR HEMOGLOBIN (BEAKER) (test ynro=925) 26.8 pg 25.7-32.2 MEAN CORPUSCULAR HEMOGLOBIN CONC (BEAKER) (test umui=046) 30.4 GM/DL 32.3-36.5 RED CELL DISTRIBUTION WIDTH (BEAKER) (test opjv=322) 18.5 % 11.6-14.4 PLATELET COUNT (BEAKER) (test akae=255) 213 K/CU MM 150-450 MEAN PLATELET VOLUME (BEAKER) (test agco=311) 10.7 fL 9.4-12.4 NUCLEATED RED BLOOD CELLS (BEAKER) (test ftel=490) 0 /100 WBC 0-0 NEUTROPHILS RELATIVE PERCENT (BEAKER) (test jdkh=358) 64 % LYMPHOCYTES RELATIVE PERCENT (BEAKER) (test tjdq=738) 19 % MONOCYTES RELATIVE PERCENT (BEAKER) (test nnul=591) 9 % EOSINOPHILS RELATIVE PERCENT (BEAKER) (test pvgq=772) 7 % BASOPHILS RELATIVE PERCENT (BEAKER) (test qgch=774) 1 % NEUTROPHILS ABSOLUTE COUNT (BEAKER) (test oork=287) 6.29 K/ L 1.78-5.38 LYMPHOCYTES ABSOLUTE COUNT (BEAKER) (test kwny=119) 1.83 K/ L 1.32-3.57 MONOCYTES ABSOLUTE COUNT (BEAKER) (test ypkm=803) 0.83 K/ L 0.30-0.82 EOSINOPHILS ABSOLUTE COUNT (BEAKER) (test sacf=096) 0.69 K/ L 0.04-0.54 BASOPHILS ABSOLUTE COUNT (BEAKER) (test cxdk=219) 0.11 K/ L 0.01-0.08 IMMATURE GRANULOCYTES-RELATIVE PERCENT (BEAKER) (test mulj=9460) 0 % 0-1 [id number] 12:03:00* Test Item Value Reference Range Comments MAGNESIUM (BEAKER) (test byki=099) 1.9 mg/dL 1.6-2.6 HEPATIC FUNCTION [id number] 12:03:00* Test Item Value Reference Range Comments TOTAL PROTEIN (BEAKER) (test gkan=283) 7.1 gm/dL 6.0-8.3 ALBUMIN (BEAKER) (test bizc=3937) 3.8 g/dL 3.5-5.0 BILIRUBIN TOTAL (BEAKER) (test snyv=886) 0.6 mg/dL 0.2-1.2 BILIRUBIN DIRECT (BEAKER) (test urxo=138) 0.3 mg/dL 0.1-0.5 ALKALINE PHOSPHATASE (BEAKER) (test difj=019) 118 U/L 40-150 AST (SGOT) (BEAKER) (test ykzj=696) 17 U/L 5-34 ALT (SGPT) (BEAKER) (test twzj=246) 10 U/L 6-55 LACTATE DEHYDROGENASE (LDH)2018-06-13 12:03:00* Test Item Value Reference Range Comments LACTATE DEHYDROGENASE (BEAKER) (test qxif=664) 218 U/L 125-220 PROTHROMBIN TIME/[id number] 11:54:00* Test Item Value Reference Range Comments PROTIME (BEAKER) (test immm=061) 16.1 seconds 11.7-14.7 INR (BEAKER) (test lbmy=069) 1.3 <=5.9 RECOMMENDED COUMADIN/WARFARIN INR THERAPY RANGESSTANDARD DOSE: 2.0 - 3.0 Inclu navid: PROPHYLAXIS for venous thrombosis, systemic embolization; TREATMENT for dayna ous thrombosis and/or pulmonary embolus.HIGH RISK: Target INR is 2.5-3.5 for pat ients with mechanical heart valves.CBC W/PLT COUNT & AUTO [id number] 11:46:00* Test Item Value Reference Range Comments WHITE BLOOD CELL COUNT (BEAKER) (test hfiv=777) 7.6 K/ L 3.5-10.5 RED BLOOD CELL COUNT (BEAKER) (test xipd=533) 3.63 M/ L 4.63-6.08 HEMOGLOBIN (BEAKER) (test npar=984) 9.7 GM/DL 13.7-17.5 HEMATOCRIT (BEAKER) (test sptl=957) 32.2 % 40.1-51.0 MEAN CORPUSCULAR VOLUME (BEAKER) (test evza=606) 88.7 fL 79.0-92.2 MEAN CORPUSCULAR HEMOGLOBIN (BEAKER) (test tvwy=714) 26.7 pg 25.7-32.2 MEAN CORPUSCULAR HEMOGLOBIN CONC (BEAKER) (test jzaq=677) 30.1 GM/DL 32.3-36.5 RED CELL DISTRIBUTION WIDTH (BEAKER) (test eosx=699) 18.6 % 11.6-14.4 PLATELET COUNT (BEAKER) (test wdqj=775) 203 K/CU MM 150-450 MEAN PLATELET VOLUME (BEAKER) (test bydl=602) 11.0 fL 9.4-12.4 NUCLEATED RED BLOOD CELLS (BEAKER) (test zrkx=908) 0 /100 WBC 0-0 NEUTROPHILS RELATIVE PERCENT (BEAKER) (test yvnk=426) 64 % LYMPHOCYTES RELATIVE PERCENT (BEAKER) (test zdgn=959) 18 % MONOCYTES RELATIVE PERCENT (BEAKER) (test dfmk=600) 8 % EOSINOPHILS RELATIVE PERCENT (BEAKER) (test gozs=193) 8 % BASOPHILS RELATIVE PERCENT (BEAKER) (test rcxt=093) 1 % NEUTROPHILS ABSOLUTE COUNT (BEAKER) (test cthl=321) 4.84 K/ L 1.78-5.38 LYMPHOCYTES ABSOLUTE COUNT (BEAKER) (test cray=918) 1.40 K/ L 1.32-3.57 MONOCYTES ABSOLUTE COUNT (BEAKER) (test dsms=516) 0.64 K/ L 0.30-0.82 EOSINOPHILS ABSOLUTE COUNT (BEAKER) (test eapx=587) 0.61 K/ L 0.04-0.54 BASOPHILS ABSOLUTE COUNT (BEAKER) (test ueub=630) 0.11 K/ L 0.01-0.08 IMMATURE GRANULOCYTES-RELATIVE PERCENT (BEAKER) (test flvf=4724) 0 % 0-1 CT, BRAIN, WITHOUT [id number] 13:12:00FINAL REPORT CT, BRAIN, WITHOUT CONTRAST INDICATION: Head trauma, headache TECHNIQUE: Noncontrast axial imaging was obtained from the vertex to the skull base. Axial images were reconstructed using a bone algorithm. DOSE REDUCTION: Dose modulation, iterative reconstruction, and/or weight-based adjustment of the mA/kV was utilized to reduce the radiation dose to as low as reasonably achievable. COMPARISON: October 11, 2017 FINDINGS: Cerebral parenchyma: Persistent volume loss. No disruption of the alaniz-white distinction. No parenchymal hemorrhage. Appearance of the white matter suggests chronic microvascular dise ase.Midline structures: Normally positioned.Cerebellum and brainstem: Commensura te volume loss.Ventricles: Normal volume.Extra-axial spaces: No abnormal fluid o r hemorrhage. Calvarium and skull base: Intact.Paranasal sinuses and mastoid air cells: Visible chambers are clear.Orbital contents: Included portions unremarka ble. Additional findings: None. IMPRESSION: Chronic involutional changes witho ut acute or traumatic intracranial abnormality. Signed: JR Humphreys Robert MDReport Verified Date/Time: 05/16/2018 13:12:38 Reading Location: [facility] C013V Neuro Reading Room Electronically signed by: MARTHA HUMPHREYS on 05/03 01:12 PM [id number] 11:45:00* Test Item Value Reference Range Comments MAGNESIUM (BEAKER) (test xedm=795) 2.2 mg/dL 1.6-2.6 HEPATIC FUNCTION [id number] 11:45:00* Test Item Value Reference Range Comments TOTAL PROTEIN (BEAKER) (test hzxi=012) 7.0 gm/dL 6.0-8.3 ALBUMIN (BEAKER) (test lzuu=1969) 3.8 g/dL 3.5-5.0 BILIRUBIN TOTAL (BEAKER) (test uzxj=539) 0.8 mg/dL 0.2-1.2 BILIRUBIN DIRECT (BEAKER) (test zxac=797) 0.5 mg/dL 0.1-0.5 ALKALINE PHOSPHATASE (BEAKER) (test vkig=306) 113 U/L 40-150 AST (SGOT) (BEAKER) (test bbyn=597) 20 U/L 5-34 ALT (SGPT) (BEAKER) (test pjqm=403) 14 U/L 6-55 LACTATE DEHYDROGENASE (LDH)2018-05-16 11:45:00* Test Item Value Reference Range Comments LACTATE DEHYDROGENASE (BEAKER) (test snia=046) 211 U/L 125-220 PROTHROMBIN [id number] 11:35:00* Test Item Value Reference Range Comments PROTIME (BEAKER) (test asgr=780) 20.8 seconds 11.7-14.7 INR (BEAKER) (test stek=438) 1.8 <=5.9 RECOMMENDED COUMADIN/WARFARIN INR THERAPY RANGESSTANDARD DOSE: 2.0 - 3.0 Inclu navid: PROPHYLAXIS for venous thrombosis, systemic embolization; TREATMENT for dayna ous thrombosis and/or pulmonary embolus.HIGH RISK: Target INR is 2.5-3.5 for pat ients with mechanical heart valves.CBC W/PLT COUNT & AUTO [id number] 11:28:00* Test Item Value Reference Range Comments WHITE BLOOD CELL COUNT (BEAKER) (test nvvc=597) 9.4 K/ L 3.5-10.5 RED BLOOD CELL COUNT (BEAKER) (test jfrz=473) 3.70 M/ L 4.63-6.08 HEMOGLOBIN (BEAKER) (test xdxl=386) 10.0 GM/DL 13.7-17.5 HEMATOCRIT (BEAKER) (test qwde=666) 32.5 % 40.1-51.0 MEAN CORPUSCULAR VOLUME (BEAKER) (test spzl=380) 87.8 fL 79.0-92.2 MEAN CORPUSCULAR HEMOGLOBIN (BEAKER) (test euri=026) 27.0 pg 25.7-32.2 MEAN CORPUSCULAR HEMOGLOBIN CONC (BEAKER) (test smue=535) 30.8 GM/DL 32.3-36.5 RED CELL DISTRIBUTION WIDTH (BEAKER) (test bcjp=765) 16.7 % 11.6-14.4 PLATELET COUNT (BEAKER) (test kxye=670) 229 K/CU MM 150-450 MEAN PLATELET VOLUME (BEAKER) (test ahbk=119) 10.0 fL 9.4-12.4 NUCLEATED RED BLOOD CELLS (BEAKER) (test bqwz=791) 0 /100 WBC 0-0 NEUTROPHILS RELATIVE PERCENT (BEAKER) (test lrzx=090) 73 % LYMPHOCYTES RELATIVE PERCENT (BEAKER) (test gnqv=572) 14 % MONOCYTES RELATIVE PERCENT (BEAKER) (test izrq=173) 7 % EOSINOPHILS RELATIVE PERCENT (BEAKER) (test cgie=966) 5 % BASOPHILS RELATIVE PERCENT (BEAKER) (test yjrx=199) 1 % NEUTROPHILS ABSOLUTE COUNT (BEAKER) (test ggtu=050) 6.80 K/ L 1.78-5.38 LYMPHOCYTES ABSOLUTE COUNT (BEAKER) (test evim=074) 1.29 K/ L 1.32-3.57 MONOCYTES ABSOLUTE COUNT (BEAKER) (test uuij=198) 0.65 K/ L 0.30-0.82 EOSINOPHILS ABSOLUTE COUNT (BEAKER) (test fcmy=904) 0.49 K/ L 0.04-0.54 BASOPHILS ABSOLUTE COUNT (BEAKER) (test figs=073) 0.08 K/ L 0.01-0.08 IMMATURE GRANULOCYTES-RELATIVE PERCENT (BEAKER) (test kvfz=4334) 1 % 0-1 [id number] 11:45:00* Test Item Value Reference Range Comments MAGNESIUM (BEAKER) (test yrbo=328) 2.1 mg/dL 1.6-2.6 BASIC METABOLIC [id number] 11:45:00* Test Item Value Reference Range Comments SODIUM (BEAKER) (test zqiq=209) 142 meq/L 136-145 POTASSIUM (BEAKER) (test npcb=348) 4.6 meq/L 3.5-5.1 CHLORIDE (BEAKER) (test buuc=628) 112 meq/L 98-107 CO2 (BEAKER) (test zjno=804) 25 meq/L 22-29 BLOOD UREA NITROGEN (BEAKER) (test nylh=804) 38 mg/dL 7-21 CREATININE (BEAKER) (test fvtm=905) 1.57 mg/dL 0.57-1.25 GLUCOSE RANDOM (BEAKER) (test kioq=255) 101 mg/dL 70-105 CALCIUM (BEAKER) (test resh=291) 9.1 mg/dL 8.4-10.2 EGFR (BEAKER) (test eozc=2218) 43 mL/min/1.73 sq m ESTIMATED GFR IS NOT ACCURATE CREATININE CLEARANCE IN PREDICTING GLOMERULAR FILTRATION RATE. ESTIMATED GFR IS NOT APPLICABLE FOR DIALYSIS PATIENTS. HEPATIC FUNCTION [id number] 11:45:00* Test Item Value Reference Range Comments TOTAL PROTEIN (BEAKER) (test celg=450) 6.5 gm/dL 6.0-8.3 ALBUMIN (BEAKER) (test mjon=7403) 3.6 g/dL 3.5-5.0 BILIRUBIN TOTAL (BEAKER) (test bcom=734) 1.1 mg/dL 0.2-1.2 BILIRUBIN DIRECT (BEAKER) (test fodo=787) 0.6 mg/dL 0.1-0.5 ALKALINE PHOSPHATASE (BEAKER) (test alif=804) 100 U/L 40-150 AST (SGOT) (BEAKER) (test sjfi=112) 22 U/L 5-34 ALT (SGPT) (BEAKER) (test jygn=741) 15 U/L 6-55 LACTATE DEHYDROGENASE (LDH)2018-04-18 11:45:00* Test Item Value Reference Range Comments LACTATE DEHYDROGENASE (BEAKER) (test sbfn=856) 236 U/L 125-220 PROTHROMBIN [id number] 11:41:00* Test Item Value Reference Range Comments PROTIME (BEAKER) (test ylnr=825) 27.3 seconds 11.7-14.7 INR (BEAKER) (test dlmg=848) 2.5 <=5.9 RECOMMENDED COUMADIN/WARFARIN INR THERAPY RANGESSTANDARD DOSE: 2.0 - 3.0 Inclu navid: PROPHYLAXIS for venous thrombosis, systemic embolization; TREATMENT for dayna ous thrombosis and/or pulmonary embolus.HIGH RISK: Target INR is 2.5-3.5 for pat ients with mechanical heart valves.CBC W/PLT COUNT & AUTO [id number] 11:35:00* Test Item Value Reference Range Comments WHITE BLOOD CELL COUNT (BEAKER) (test njbl=636) 9.0 K/ L 3.5-10.5 RED BLOOD CELL COUNT (BEAKER) (test iykb=615) 3.81 M/ L 4.63-6.08 HEMOGLOBIN (BEAKER) (test vvdf=920) 10.4 GM/DL 13.7-17.5 HEMATOCRIT (BEAKER) (test rppw=275) 35.0 % 40.1-51.0 MEAN CORPUSCULAR VOLUME (BEAKER) (test wapj=920) 91.9 fL 79.0-92.2 MEAN CORPUSCULAR HEMOGLOBIN (BEAKER) (test kuli=518) 27.3 pg 25.7-32.2 MEAN CORPUSCULAR HEMOGLOBIN CONC (BEAKER) (test guwm=542) 29.7 GM/DL 32.3-36.5 RED CELL DISTRIBUTION WIDTH (BEAKER) (test uzau=023) 16.5 % 11.6-14.4 PLATELET COUNT (BEAKER) (test osvv=956) 200 K/CU MM 150-450 MEAN PLATELET VOLUME (BEAKER) (test odgh=827) 10.8 fL 9.4-12.4 NUCLEATED RED BLOOD CELLS (BEAKER) (test hejr=341) 0 /100 WBC 0-0 NEUTROPHILS RELATIVE PERCENT (BEAKER) (test oxna=460) 70 % LYMPHOCYTES RELATIVE PERCENT (BEAKER) (test icla=373) 16 % MONOCYTES RELATIVE PERCENT (BEAKER) (test gpjl=065) 9 % EOSINOPHILS RELATIVE PERCENT (BEAKER) (test ecyx=162) 3 % BASOPHILS RELATIVE PERCENT (BEAKER) (test sscq=687) 1 % NEUTROPHILS ABSOLUTE COUNT (BEAKER) (test cowr=215) 6.29 K/ L 1.78-5.38 LYMPHOCYTES ABSOLUTE COUNT (BEAKER) (test rzcw=014) 1.44 K/ L 1.32-3.57 MONOCYTES ABSOLUTE COUNT (BEAKER) (test jpkl=157) 0.83 K/ L 0.30-0.82 EOSINOPHILS ABSOLUTE COUNT (BEAKER) (test npvi=502) 0.30 K/ L 0.04-0.54 BASOPHILS ABSOLUTE COUNT (BEAKER) (test fxms=543) 0.09 K/ L 0.01-0.08 IMMATURE GRANULOCYTES-RELATIVE PERCENT (BEAKER) (test ywsp=2409) 0 % 0-1 LACTATE DEHYDROGENASE (LDH)2018-03-21 11:23:00* Test Item Value Reference Range Comments LACTATE DEHYDROGENASE (BEAKER) (test dkcj=585) 236 U/L 125-220 [id number] 11:22:00* Test Item Value Reference Range Comments MAGNESIUM (BEAKER) (test kxqo=841) 2.2 mg/dL 1.6-2.6 BASIC METABOLIC [id number] 11:22:00* Test Item Value Reference Range Comments SODIUM (BEAKER) (test gzeg=808) 139 meq/L 136-145 POTASSIUM (BEAKER) (test witk=221) 4.7 meq/L 3.5-5.1 CHLORIDE (BEAKER) (test avka=639) 109 meq/L 98-107 CO2 (BEAKER) (test vmzt=874) 24 meq/L 22-29 BLOOD UREA NITROGEN (BEAKER) (test snag=885) 36 mg/dL 7-21 CREATININE (BEAKER) (test hngs=198) 1.67 mg/dL 0.57-1.25 GLUCOSE RANDOM (BEAKER) (test upcz=888) 92 mg/dL 70-105 CALCIUM (BEAKER) (test gake=820) 9.3 mg/dL 8.4-10.2 EGFR (BEAKER) (test ihiq=3416) 40 mL/min/1.73 sq m ESTIMATED GFR IS NOT ACCURATE CREATININE CLEARANCE IN PREDICTING GLOMERULAR FILTRATION RATE. ESTIMATED GFR IS NOT APPLICABLE FOR DIALYSIS PATIENTS. HEPATIC FUNCTION [id number] 11:22:00* Test Item Value Reference Range Comments TOTAL PROTEIN (BEAKER) (test fjju=832) 7.0 gm/dL 6.0-8.3 ALBUMIN (BEAKER) (test zvpr=8339) 3.8 g/dL 3.5-5.0 BILIRUBIN TOTAL (BEAKER) (test zezc=703) 0.8 mg/dL 0.2-1.2 BILIRUBIN DIRECT (BEAKER) (test ekvq=613) 0.5 mg/dL 0.1-0.5 ALKALINE PHOSPHATASE (BEAKER) (test gbnh=989) 104 U/L 40-150 AST (SGOT) (BEAKER) (test mtpg=547) 24 U/L 5-34 ALT (SGPT) (BEAKER) (test penj=959) 22 U/L 6-55 PROTHROMBIN [id number] 11:18:00* Test Item Value Reference Range Comments PROTIME (BEAKER) (test zbsp=620) 19.9 seconds 11.7-14.7 INR (BEAKER) (test xqtf=924) 1.7 <=5.9 RECOMMENDED COUMADIN/WARFARIN INR THERAPY RANGESSTANDARD DOSE: 2.0 - 3.0 Inclu navid: PROPHYLAXIS for venous thrombosis, systemic embolization; TREATMENT for dayna ous thrombosis and/or pulmonary embolus.HIGH RISK: Target INR is 2.5-3.5 for pat ients with mechanical heart valves.CBC W/PLT COUNT & AUTO [id number] 11:05:00* Test Item Value Reference Range Comments WHITE BLOOD CELL COUNT (BEAKER) (test vofj=878) 9.7 K/ L 3.5-10.5 RED BLOOD CELL COUNT (BEAKER) (test mvqs=636) 3.49 M/ L 4.63-6.08 HEMOGLOBIN (BEAKER) (test bpdk=958) 9.7 GM/DL 13.7-17.5 HEMATOCRIT (BEAKER) (test juzz=920) 32.5 % 40.1-51.0 MEAN CORPUSCULAR VOLUME (BEAKER) (test tlrj=223) 93.1 fL 79.0-92.2 MEAN CORPUSCULAR HEMOGLOBIN (BEAKER) (test tanv=146) 27.8 pg 25.7-32.2 MEAN CORPUSCULAR HEMOGLOBIN CONC (BEAKER) (test yhqz=673) 29.8 GM/DL 32.3-36.5 RED CELL DISTRIBUTION WIDTH (BEAKER) (test xsoq=485) 15.9 % 11.6-14.4 PLATELET COUNT (BEAKER) (test xmtf=984) 215 K/CU MM 150-450 MEAN PLATELET VOLUME (BEAKER) (test hbrw=892) 10.0 fL 9.4-12.4 NUCLEATED RED BLOOD CELLS (BEAKER) (test hdxe=885) 0 /100 WBC 0-0 NEUTROPHILS RELATIVE PERCENT (BEAKER) (test bshq=922) 66 % LYMPHOCYTES RELATIVE PERCENT (BEAKER) (test umjp=211) 17 % MONOCYTES RELATIVE PERCENT (BEAKER) (test yafn=726) 9 % EOSINOPHILS RELATIVE PERCENT (BEAKER) (test yray=925) 7 % BASOPHILS RELATIVE PERCENT (BEAKER) (test alwg=386) 1 % NEUTROPHILS ABSOLUTE COUNT (BEAKER) (test gsdh=226) 6.36 K/ L 1.78-5.38 LYMPHOCYTES ABSOLUTE COUNT (BEAKER) (test qump=139) 1.64 K/ L 1.32-3.57 MONOCYTES ABSOLUTE COUNT (BEAKER) (test mwfv=716) 0.86 K/ L 0.30-0.82 EOSINOPHILS ABSOLUTE COUNT (BEAKER) (test vnfs=051) 0.66 K/ L 0.04-0.54 BASOPHILS ABSOLUTE COUNT (BEAKER) (test rieh=456) 0.11 K/ L 0.01-0.08 IMMATURE GRANULOCYTES-RELATIVE PERCENT (BEAKER) (test ckce=4887) 0 % 0-1 LACTATE DEHYDROGENASE (LDH)2018-02-23 14:53:00* Test Item Value Reference Range Comments LACTATE DEHYDROGENASE (BEAKER) (test nyqt=099) 216 U/L 125-220 BASIC METABOLIC [id number] 14:53:00* Test Item Value Reference Range Comments SODIUM (BEAKER) (test ytwj=673) 139 meq/L 136-145 POTASSIUM (BEAKER) (test uifs=097) 4.9 meq/L 3.5-5.1 CHLORIDE (BEAKER) (test xanq=118) 109 meq/L 98-107 CO2 (BEAKER) (test wlow=707) 25 meq/L 22-29 BLOOD UREA NITROGEN (BEAKER) (test qdyx=971) 41 mg/dL 7-21 CREATININE (BEAKER) (test mwxr=365) 1.61 mg/dL 0.57-1.25 GLUCOSE RANDOM (BEAKER) (test qqkm=401) 101 mg/dL 70-105 CALCIUM (BEAKER) (test kgrn=576) 9.3 mg/dL 8.4-10.2 EGFR (BEAKER) (test mkoh=0082) 41 mL/min/1.73 sq m ESTIMATED GFR IS NOT ACCURATE CREATININE CLEARANCE IN PREDICTING GLOMERULAR FILTRATION RATE. ESTIMATED GFR IS NOT APPLICABLE FOR DIALYSIS PATIENTS. PROTHROMBIN [id number] 14:39:00* Test Item Value Reference Range Comments PROTIME (BEAKER) (test jhvo=587) 26.1 seconds 11.7-14.7 INR (BEAKER) (test cvlg=208) 2.4 <=5.9 RECOMMENDED COUMADIN/WARFARIN INR THERAPY RANGESSTANDARD DOSE: 2.0 - 3.0 Inclu navid: PROPHYLAXIS for venous thrombosis, systemic embolization; TREATMENT for dayna ous thrombosis and/or pulmonary embolus.HIGH RISK: Target INR is 2.5-3.5 for pat ients with mechanical heart valves.RAD, CHEST, 2 [id number] 14:34:00Reason for Exam:->shortness of breath, productive coughFINAL REPORT Two views chest compared to September 15, 2017 Discussion: Right lung clear. Ill-defined opacities left lower lung with small effusion are noted, similar in distribution to that of the previous study. No pneumothorax. 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 Signed: Sukhwinder Baezeport Verified Date/Time: 02/23/2018 14:34:58 Reading Location: [facility] B1 [id number] Consult Reading Room W/PLT COUNT & AUTO [id number] 14:32:00* Test Item Value Reference Range Comments WHITE BLOOD CELL COUNT (BEAKER) (test wslb=270) 8.5 K/ L 3.5-10.5 RED BLOOD CELL COUNT (BEAKER) (test rjqn=483) 3.16 M/ L 4.63-6.08 HEMOGLOBIN (BEAKER) (test geto=835) 9.1 GM/DL 13.7-17.5 HEMATOCRIT (BEAKER) (test ysaw=799) 29.0 % 40.1-51.0 MEAN CORPUSCULAR VOLUME (BEAKER) (test cbte=682) 91.8 fL 79.0-92.2 MEAN CORPUSCULAR HEMOGLOBIN (BEAKER) (test ppwk=715) 28.8 pg 25.7-32.2 MEAN CORPUSCULAR HEMOGLOBIN CONC (BEAKER) (test mtaa=842) 31.4 GM/DL 32.3-36.5 RED CELL DISTRIBUTION WIDTH (BEAKER) (test yxtt=529) 15.2 % 11.6-14.4 PLATELET COUNT (BEAKER) (test oeia=782) 219 K/CU MM 150-450 MEAN PLATELET VOLUME (BEAKER) (test qkll=688) 10.1 fL 9.4-12.4 NUCLEATED RED BLOOD CELLS (BEAKER) (test zssu=785) 0 /100 WBC 0-0 NEUTROPHILS RELATIVE PERCENT (BEAKER) (test opil=012) 68 % LYMPHOCYTES RELATIVE PERCENT (BEAKER) (test tkmq=882) 16 % MONOCYTES RELATIVE PERCENT (BEAKER) (test fwgl=166) 8 % EOSINOPHILS RELATIVE PERCENT (BEAKER) (test mntf=585) 7 % BASOPHILS RELATIVE PERCENT (BEAKER) (test birn=709) 1 % NEUTROPHILS ABSOLUTE COUNT (BEAKER) (test ncqm=790) 5.76 K/ L 1.78-5.38 LYMPHOCYTES ABSOLUTE COUNT (BEAKER) (test kbso=463) 1.38 K/ L 1.32-3.57 MONOCYTES ABSOLUTE COUNT (BEAKER) (test rgrf=654) 0.68 K/ L 0.30-0.82 EOSINOPHILS ABSOLUTE COUNT (BEAKER) (test rmor=033) 0.56 K/ L 0.04-0.54 BASOPHILS ABSOLUTE COUNT (BEAKER) (test ufgh=690) 0.07 K/ L 0.01-0.08 IMMATURE GRANULOCYTES-RELATIVE PERCENT (BEAKER) (test prap=2972) 1 % 0-1 BASIC METABOLIC [id number] 11:50:00* Test Item Value Reference Range Comments SODIUM (BEAKER) (test epow=090) 138 meq/L 136-145 POTASSIUM (BEAKER) (test unww=859) 5.2 meq/L 3.5-5.1 CHLORIDE (BEAKER) (test xjvd=414) 106 meq/L 98-107 CO2 (BEAKER) (test okcf=421) 25 meq/L 22-29 BLOOD UREA NITROGEN (BEAKER) (test jbpr=840) 36 mg/dL 7-21 CREATININE (BEAKER) (test gdgj=836) 1.40 mg/dL 0.57-1.25 GLUCOSE RANDOM (BEAKER) (test scug=340) 96 mg/dL 70-105 CALCIUM (BEAKER) (test rvlu=418) 9.8 mg/dL 8.4-10.2 EGFR (BEAKER) (test kspa=0387) 49 mL/min/1.73 sq m ESTIMATED GFR IS NOT ACCURATE CREATININE CLEARANCE IN PREDICTING GLOMERULAR FILTRATION RATE. ESTIMATED GFR IS NOT APPLICABLE FOR DIALYSIS PATIENTS. HEPATIC FUNCTION [id number] 11:50:00* Test Item Value Reference Range Comments TOTAL PROTEIN (BEAKER) (test dgjw=522) 7.4 gm/dL 6.0-8.3 ALBUMIN (BEAKER) (test xite=0346) 3.9 g/dL 3.5-5.0 BILIRUBIN TOTAL (BEAKER) (test cxum=052) 0.4 mg/dL 0.2-1.2 BILIRUBIN DIRECT (BEAKER) (test hvbu=718) 0.2 mg/dL 0.1-0.5 ALKALINE PHOSPHATASE (BEAKER) (test eged=914) 107 U/L 40-150 AST (SGOT) (BEAKER) (test hktp=651) 20 U/L 5-34 ALT (SGPT) (BEAKER) (test ysoz=192) 13 U/L 6-55 LACTATE DEHYDROGENASE (LDH)2018-02-07 11:50:00* Test Item Value Reference Range Comments LACTATE DEHYDROGENASE (BEAKER) (test thmk=370) 213 U/L 125-220 [id number] 11:49:00* Test Item Value Reference Range Comments MAGNESIUM (BEAKER) (test vvkl=693) 2.1 mg/dL 1.6-2.6 CBC W/PLT COUNT & AUTO [id number] 11:28:00* Test Item Value Reference Range Comments WHITE BLOOD CELL COUNT (BEAKER) (test apcs=881) 10.8 K/ L 3.5-10.5 RED BLOOD CELL COUNT (BEAKER) (test vtuf=004) 3.74 M/ L 4.63-6.08 HEMOGLOBIN (BEAKER) (test wklk=115) 11.0 GM/DL 13.7-17.5 HEMATOCRIT (BEAKER) (test fvqr=765) 35.4 % 40.1-51.0 MEAN CORPUSCULAR VOLUME (BEAKER) (test joes=363) 94.7 fL 79.0-92.2 MEAN CORPUSCULAR HEMOGLOBIN (BEAKER) (test rhsj=160) 29.4 pg 25.7-32.2 MEAN CORPUSCULAR HEMOGLOBIN CONC (BEAKER) (test biai=954) 31.1 GM/DL 32.3-36.5 RED CELL DISTRIBUTION WIDTH (BEAKER) (test csom=798) 14.9 % 11.6-14.4 PLATELET COUNT (BEAKER) (test mbqm=968) 272 K/CU MM 150-450 MEAN PLATELET VOLUME (BEAKER) (test uytw=539) 9.9 fL 9.4-12.4 NUCLEATED RED BLOOD CELLS (BEAKER) (test hysh=805) 0 /100 WBC 0-0 NEUTROPHILS RELATIVE PERCENT (BEAKER) (test jkdu=949) 64 % LYMPHOCYTES RELATIVE PERCENT (BEAKER) (test qwft=269) 17 % MONOCYTES RELATIVE PERCENT (BEAKER) (test zonp=187) 9 % EOSINOPHILS RELATIVE PERCENT (BEAKER) (test gdnz=136) 9 % BASOPHILS RELATIVE PERCENT (BEAKER) (test clzr=278) 1 % NEUTROPHILS ABSOLUTE COUNT (BEAKER) (test ucyk=722) 6.87 K/ L 1.78-5.38 LYMPHOCYTES ABSOLUTE COUNT (BEAKER) (test kriy=939) 1.81 K/ L 1.32-3.57 MONOCYTES ABSOLUTE COUNT (BEAKER) (test btpr=019) 0.92 K/ L 0.30-0.82 EOSINOPHILS ABSOLUTE COUNT (BEAKER) (test zrdd=357) 1.01 K/ L 0.04-0.54 BASOPHILS ABSOLUTE COUNT (BEAKER) (test tpko=526) 0.10 K/ L 0.01-0.08 IMMATURE GRANULOCYTES-RELATIVE PERCENT (BEAKER) (test gleq=5307) 1 % 0-1 PROTHROMBIN [id number] 11:25:00* Test Item Value Reference Range Comments PROTIME (BEAKER) (test anju=078) 21.0 seconds 11.7-14.7 INR (BEAKER) (test idwe=588) 1.8 <=5.9 RECOMMENDED COUMADIN/WARFARIN INR THERAPY RANGESSTANDARD DOSE: 2.0 - 3.0 Inclu navid: PROPHYLAXIS for venous thrombosis, systemic embolization; TREATMENT for dayna ous thrombosis and/or pulmonary embolus.HIGH RISK: Target INR is 2.5-3.5 for pat ients with mechanical heart valves.PROTHROMBIN TIME/[id number] 11:40:00* Test Item Value Reference Range Comments PROTIME (BEAKER) (test newq=167) 20.8 seconds 11.7-14.7 INR (BEAKER) (test nnon=525) 1.8 <=5.9 RECOMMENDED COUMADIN/WARFARIN INR THERAPY RANGESSTANDARD DOSE: 2.0 - 3.0 Inclu navid: PROPHYLAXIS for venous thrombosis, systemic embolization; TREATMENT for dayna ous thrombosis and/or pulmonary embolus.HIGH RISK: Target INR is 2.5-3.5 for pat ients with mechanical heart valves.[id number] 11:34:00* Test Item Value Reference Range Comments MAGNESIUM (BEAKER) (test tmex=214) 2.1 mg/dL 1.6-2.6 BASIC METABOLIC [id number] 11:34:00* Test Item Value Reference Range Comments SODIUM (BEAKER) (test eocc=689) 137 meq/L 136-145 POTASSIUM (BEAKER) (test dsug=643) 5.1 meq/L 3.5-5.1 CHLORIDE (BEAKER) (test pody=821) 106 meq/L 98-107 CO2 (BEAKER) (test corz=186) 25 meq/L 22-29 BLOOD UREA NITROGEN (BEAKER) (test nucb=134) 33 mg/dL 7-21 CREATININE (BEAKER) (test yrda=934) 1.36 mg/dL 0.57-1.25 GLUCOSE RANDOM (BEAKER) (test hmrk=347) 83 mg/dL 70-105 CALCIUM (BEAKER) (test jiel=911) 9.9 mg/dL 8.4-10.2 EGFR (BEAKER) (test eotw=6577) 50 mL/min/1.73 sq m ESTIMATED GFR IS NOT ACCURATE CREATININE CLEARANCE IN PREDICTING GLOMERULAR FILTRATION RATE. ESTIMATED GFR IS NOT APPLICABLE FOR DIALYSIS PATIENTS. HEPATIC FUNCTION [id number] 11:34:00* Test Item Value Reference Range Comments TOTAL PROTEIN (BEAKER) (test xcdz=745) 7.1 gm/dL 6.0-8.3 ALBUMIN (BEAKER) (test utza=2923) 3.6 g/dL 3.5-5.0 BILIRUBIN TOTAL (BEAKER) (test dffr=754) 0.4 mg/dL 0.2-1.2 BILIRUBIN DIRECT (BEAKER) (test kdmx=813) 0.2 mg/dL 0.1-0.5 ALKALINE PHOSPHATASE (BEAKER) (test jewq=322) 106 U/L 40-150 AST (SGOT) (BEAKER) (test toqe=882) 21 U/L 5-34 ALT (SGPT) (BEAKER) (test mxlg=543) 11 U/L 6-55 LACTATE DEHYDROGENASE (LDH)2018-01-10 11:34:00* Test Item Value Reference Range Comments LACTATE DEHYDROGENASE (BEAKER) (test sltm=116) 221 U/L 125-220 CBC W/PLT COUNT & AUTO [id number] 11:29:00* Test Item Value Reference Range Comments WHITE BLOOD CELL COUNT (BEAKER) (test eehl=157) 9.0 K/ L 3.5-10.5 RED BLOOD CELL COUNT (BEAKER) (test ltcy=888) 3.46 M/ L 4.63-6.08 HEMOGLOBIN (BEAKER) (test opkf=237) 9.9 GM/DL 13.7-17.5 HEMATOCRIT (BEAKER) (test sihn=105) 31.6 % 40.1-51.0 MEAN CORPUSCULAR VOLUME (BEAKER) (test ijof=790) 91.3 fL 79.0-92.2 MEAN CORPUSCULAR HEMOGLOBIN (BEAKER) (test miwk=074) 28.6 pg 25.7-32.2 MEAN CORPUSCULAR HEMOGLOBIN CONC (BEAKER) (test xabf=823) 31.3 GM/DL 32.3-36.5 RED CELL DISTRIBUTION WIDTH (BEAKER) (test okar=117) 14.6 % 11.6-14.4 PLATELET COUNT (BEAKER) (test iert=442) 268 K/CU MM 150-450 MEAN PLATELET VOLUME (BEAKER) (test shja=367) 10.1 fL 9.4-12.4 NUCLEATED RED BLOOD CELLS (BEAKER) (test hbwh=596) 0 /100 WBC 0-0 NEUTROPHILS RELATIVE PERCENT (BEAKER) (test lhxw=669) 63 % LYMPHOCYTES RELATIVE PERCENT (BEAKER) (test myml=846) 18 % MONOCYTES RELATIVE PERCENT (BEAKER) (test irhj=335) 9 % EOSINOPHILS RELATIVE PERCENT (BEAKER) (test pdsw=080) 9 % BASOPHILS RELATIVE PERCENT (BEAKER) (test mlyx=866) 1 % NEUTROPHILS ABSOLUTE COUNT (BEAKER) (test jgsq=060) 5.67 K/ L 1.78-5.38 LYMPHOCYTES ABSOLUTE COUNT (BEAKER) (test dkrb=973) 1.58 K/ L 1.32-3.57 MONOCYTES ABSOLUTE COUNT (BEAKER) (test mcea=094) 0.79 K/ L 0.30-0.82 EOSINOPHILS ABSOLUTE COUNT (BEAKER) (test hkvs=251) 0.81 K/ L 0.04-0.54 BASOPHILS ABSOLUTE COUNT (BEAKER) (test eali=811) 0.10 K/ L 0.01-0.08 IMMATURE GRANULOCYTES-RELATIVE PERCENT (BEAKER) (test zdbm=5891) 1 % 0-1 HEPATIC FUNCTION [id number] 11:42:00* Test Item Value Reference Range Comments TOTAL PROTEIN (BEAKER) (test iyyh=868) 7.2 gm/dL 6.0-8.3 ALBUMIN (BEAKER) (test vnvf=9920) 3.6 g/dL 3.5-5.0 BILIRUBIN TOTAL (BEAKER) (test tnuq=690) 0.4 mg/dL 0.2-1.2 BILIRUBIN DIRECT (BEAKER) (test nqne=094) 0.2 mg/dL 0.1-0.5 ALKALINE PHOSPHATASE (BEAKER) (test yyzt=433) 117 U/L 40-150 AST (SGOT) (BEAKER) (test pfly=988) 20 U/L 5-34 ALT (SGPT) (BEAKER) (test uapn=891) 13 U/L 6-55 [id number] 10:59:00* Test Item Value Reference Range Comments MAGNESIUM (BEAKER) (test ckif=293) 2.3 mg/dL 1.6-2.6 BASIC METABOLIC [id number] 10:59:00* Test Item Value Reference Range Comments SODIUM (BEAKER) (test qojx=486) 141 meq/L 136-145 POTASSIUM (BEAKER) (test uklw=380) 5.5 meq/L 3.5-5.1 CHLORIDE (BEAKER) (test srml=290) 109 meq/L 98-107 CO2 (BEAKER) (test cgqc=680) 25 meq/L 22-29 BLOOD UREA NITROGEN (BEAKER) (test zjin=150) 39 mg/dL 7-21 CREATININE (BEAKER) (test lhha=381) 1.37 mg/dL 0.57-1.25 GLUCOSE RANDOM (BEAKER) (test gkfw=363) 90 mg/dL 70-105 CALCIUM (BEAKER) (test lngj=123) 9.7 mg/dL 8.4-10.2 EGFR (BEAKER) (test aafw=3605) 50 mL/min/1.73 sq m ESTIMATED GFR IS NOT ACCURATE CREATININE CLEARANCE IN PREDICTING GLOMERULAR FILTRATION RATE. ESTIMATED GFR IS NOT APPLICABLE FOR DIALYSIS PATIENTS. LACTATE DEHYDROGENASE (LDH)2017-12-13 10:59:00* Test Item Value Reference Range Comments LACTATE DEHYDROGENASE (BEAKER) (test gpjy=185) 212 U/L 125-220 PROTHROMBIN TIME/[id number] 10:56:00* Test Item Value Reference Range Comments PROTIME (BEAKER) (test ywxx=955) 22.5 seconds 11.7-14.7 INR (BEAKER) (test yhju=787) 2.0 <=5.9 RECOMMENDED COUMADIN/WARFARIN INR THERAPY RANGESSTANDARD DOSE: 2.0 - 3.0 Inclu navid: PROPHYLAXIS for venous thrombosis, systemic embolization; TREATMENT for dayna ous thrombosis and/or pulmonary embolus.HIGH RISK: Target INR is 2.5-3.5 for pat ients with mechanical heart valves.CBC W/PLT COUNT & AUTO [id number] 10:53:00* Test Item Value Reference Range Comments WHITE BLOOD CELL COUNT (BEAKER) (test zdnr=418) 10.4 K/ L 3.5-10.5 RED BLOOD CELL COUNT (BEAKER) (test olfv=723) 3.39 M/ L 4.63-6.08 HEMOGLOBIN (BEAKER) (test bjcd=342) 9.7 GM/DL 13.7-17.5 HEMATOCRIT (BEAKER) (test efgx=274) 31.2 % 40.1-51.0 MEAN CORPUSCULAR VOLUME (BEAKER) (test vcdr=920) 92.0 fL 79.0-92.2 MEAN CORPUSCULAR HEMOGLOBIN (BEAKER) (test hclq=904) 28.6 pg 25.7-32.2 MEAN CORPUSCULAR HEMOGLOBIN CONC (BEAKER) (test vqnx=981) 31.1 GM/DL 32.3-36.5 RED CELL DISTRIBUTION WIDTH (BEAKER) (test sfbz=571) 14.5 % 11.6-14.4 PLATELET COUNT (BEAKER) (test mhqb=522) 284 K/CU MM 150-450 MEAN PLATELET VOLUME (BEAKER) (test xhsz=112) 10.2 fL 9.4-12.4 NUCLEATED RED BLOOD CELLS (BEAKER) (test cbeq=736) 0 /100 WBC 0-0 NEUTROPHILS RELATIVE PERCENT (BEAKER) (test tcpa=224) 63 % LYMPHOCYTES RELATIVE PERCENT (BEAKER) (test llzx=506) 17 % MONOCYTES RELATIVE PERCENT (BEAKER) (test zyba=375) 8 % EOSINOPHILS RELATIVE PERCENT (BEAKER) (test zbhu=312) 10 % BASOPHILS RELATIVE PERCENT (BEAKER) (test rfro=125) 1 % NEUTROPHILS ABSOLUTE COUNT (BEAKER) (test wofk=956) 6.55 K/ L 1.78-5.38 LYMPHOCYTES ABSOLUTE COUNT (BEAKER) (test fign=588) 1.74 K/ L 1.32-3.57 MONOCYTES ABSOLUTE COUNT (BEAKER) (test jobx=566) 0.86 K/ L 0.30-0.82 EOSINOPHILS ABSOLUTE COUNT (BEAKER) (test elub=773) 1.08 K/ L 0.04-0.54 BASOPHILS ABSOLUTE COUNT (BEAKER) (test tieb=092) 0.15 K/ L 0.01-0.08 IMMATURE GRANULOCYTES-RELATIVE PERCENT (BEAKER) (test ismy=7359) 1 % 0-1 [id number] 10:30:00* Test Item Value Reference Range Comments MAGNESIUM (BEAKER) (test pzfm=568) 2.4 mg/dL 1.6-2.6 BASIC METABOLIC [id number] 10:30:00* Test Item Value Reference Range Comments SODIUM (BEAKER) (test rjuv=049) 137 meq/L 136-145 POTASSIUM (BEAKER) (test ecqp=252) 5.4 meq/L 3.5-5.1 CHLORIDE (BEAKER) (test ginr=005) 103 meq/L 98-107 CO2 (BEAKER) (test sxgk=150) 27 meq/L 22-29 BLOOD UREA NITROGEN (BEAKER) (test cekz=028) 46 mg/dL 7-21 CREATININE (BEAKER) (test htpr=025) 1.90 mg/dL 0.57-1.25 GLUCOSE RANDOM (BEAKER) (test wtof=383) 98 mg/dL 70-105 CALCIUM (BEAKER) (test amrk=269) 9.9 mg/dL 8.4-10.2 EGFR (BEAKER) (test nrnj=2759) 34 mL/min/1.73 sq m ESTIMATED GFR IS NOT ACCURATE CREATININE CLEARANCE IN PREDICTING GLOMERULAR FILTRATION RATE. ESTIMATED GFR IS NOT APPLICABLE FOR DIALYSIS PATIENTS. HEPATIC FUNCTION [id number] 10:30:00* Test Item Value Reference Range Comments TOTAL PROTEIN (BEAKER) (test xoju=487) 7.8 gm/dL 6.0-8.3 ALBUMIN (BEAKER) (test lnpy=3400) 3.7 g/dL 3.5-5.0 BILIRUBIN TOTAL (BEAKER) (test bfqq=938) 0.3 mg/dL 0.2-1.2 BILIRUBIN DIRECT (BEAKER) (test lmvz=941) 0.2 mg/dL 0.1-0.5 ALKALINE PHOSPHATASE (BEAKER) (test sxwo=697) 129 U/L 40-150 AST (SGOT) (BEAKER) (test jzec=345) 19 U/L 5-34 ALT (SGPT) (BEAKER) (test xnsw=164) 13 U/L 6-55 LACTATE DEHYDROGENASE (LDH)[id number] 10:30:00* Test Item Value Reference Range Comments LACTATE DEHYDROGENASE (BEAKER) (test pftb=158) 227 U/L 125-220 CBC W/PLT COUNT & AUTO [id number] 09:55:00* Test Item Value Reference Range Comments WHITE BLOOD CELL COUNT (BEAKER) (test kwnv=675) 11.9 K/ L 3.5-10.5 RED BLOOD CELL COUNT (BEAKER) (test vckm=859) 3.65 M/ L 4.63-6.08 HEMOGLOBIN (BEAKER) (test slql=420) 10.4 GM/DL 13.7-17.5 HEMATOCRIT (BEAKER) (test bcpy=677) 33.3 % 40.1-51.0 MEAN CORPUSCULAR VOLUME (BEAKER) (test dhyo=997) 91.2 fL 79.0-92.2 MEAN CORPUSCULAR HEMOGLOBIN (BEAKER) (test btyw=282) 28.5 pg 25.7-32.2 MEAN CORPUSCULAR HEMOGLOBIN CONC (BEAKER) (test orlb=175) 31.2 GM/DL 32.3-36.5 RED CELL DISTRIBUTION WIDTH (BEAKER) (test etxt=872) 14.6 % 11.6-14.4 PLATELET COUNT (BEAKER) (test muhp=315) 301 K/CU MM 150-450 MEAN PLATELET VOLUME (BEAKER) (test ozuu=313) 9.4 fL 9.4-12.4 NUCLEATED RED BLOOD CELLS (BEAKER) (test mvpg=382) 0 /100 WBC 0-0 NEUTROPHILS RELATIVE PERCENT (BEAKER) (test isan=190) 60 % LYMPHOCYTES RELATIVE PERCENT (BEAKER) (test ffys=049) 16 % MONOCYTES RELATIVE PERCENT (BEAKER) (test zbrs=874) 8 % EOSINOPHILS RELATIVE PERCENT (BEAKER) (test lwqv=084) 13 % BASOPHILS RELATIVE PERCENT (BEAKER) (test cacl=175) 2 % NEUTROPHILS ABSOLUTE COUNT (BEAKER) (test luew=536) 7.16 K/ L 1.78-5.38 LYMPHOCYTES ABSOLUTE COUNT (BEAKER) (test fbyy=203) 1.89 K/ L 1.32-3.57 MONOCYTES ABSOLUTE COUNT (BEAKER) (test cpsh=478) 1.00 K/ L 0.30-0.82 EOSINOPHILS ABSOLUTE COUNT (BEAKER) (test sstz=094) 1.57 K/ L 0.04-0.54 BASOPHILS ABSOLUTE COUNT (BEAKER) (test cdhd=537) 0.20 K/ L 0.01-0.08 IMMATURE GRANULOCYTES-RELATIVE PERCENT (BEAKER) (test znej=4046) 1 % 0-1 PROTHROMBIN [id number] 09:48:00* Test Item Value Reference Range Comments PROTIME (BEAKER) (test rhwt=897) 23.1 seconds 11.7-14.7 INR (BEAKER) (test diel=405) 2.1 <=5.9 RECOMMENDED COUMADIN/WARFARIN INR THERAPY RANGESSTANDARD DOSE: 2.0 - 3.0 Inclu navid: PROPHYLAXIS for venous thrombosis, systemic embolization; TREATMENT for dayna ous thrombosis and/or pulmonary embolus.HIGH RISK: Target INR is 2.5-3.5 for pat ients with mechanical heart valves.[id number] 11:04:00* Test Item Value Reference Range Comments MAGNESIUM (BEAKER) (test arvf=044) 2.1 mg/dL 1.6-2.6 BASIC METABOLIC [id number] 11:04:00* Test Item Value Reference Range Comments SODIUM (BEAKER) (test sczn=995) 138 meq/L 136-145 POTASSIUM (BEAKER) (test fwbp=597) 4.7 meq/L 3.5-5.1 CHLORIDE (BEAKER) (test kdiw=118) 107 meq/L 98-107 CO2 (BEAKER) (test biic=997) 26 meq/L 22-29 BLOOD UREA NITROGEN (BEAKER) (test zcbq=576) 45 mg/dL 7-21 CREATININE (BEAKER) (test hbrm=588) 1.36 mg/dL 0.57-1.25 GLUCOSE RANDOM (BEAKER) (test kuxm=515) 93 mg/dL 70-105 CALCIUM (BEAKER) (test bvrf=693) 9.7 mg/dL 8.4-10.2 EGFR (BEAKER) (test xxfg=3310) 50 mL/min/1.73 sq m ESTIMATED GFR IS NOT ACCURATE CREATININE CLEARANCE IN PREDICTING GLOMERULAR FILTRATION RATE. ESTIMATED GFR IS NOT APPLICABLE FOR DIALYSIS PATIENTS. HEPATIC FUNCTION [id number] 11:04:00* Test Item Value Reference Range Comments TOTAL PROTEIN (BEAKER) (test jsad=830) 7.6 gm/dL 6.0-8.3 ALBUMIN (BEAKER) (test ruxd=0222) 3.6 g/dL 3.5-5.0 BILIRUBIN TOTAL (BEAKER) (test gpcz=990) 0.4 mg/dL 0.2-1.2 BILIRUBIN DIRECT (BEAKER) (test glhj=201) 0.2 mg/dL 0.1-0.5 ALKALINE PHOSPHATASE (BEAKER) (test ytdw=096) 122 U/L 40-150 AST (SGOT) (BEAKER) (test gwat=014) 19 U/L 5-34 ALT (SGPT) (BEAKER) (test xnnx=057) 12 U/L 6-55 LACTATE DEHYDROGENASE (LDH)2017-11-15 11:04:00* Test Item Value Reference Range Comments LACTATE DEHYDROGENASE (BEAKER) (test hjwb=194) 244 U/L 125-220 PROTHROMBIN [id number] 10:50:00* Test Item Value Reference Range Comments PROTIME (BEAKER) (test omyz=145) 23.8 seconds 11.7-14.7 INR (BEAKER) (test ywoy=108) 2.1 <=5.9 RECOMMENDED COUMADIN/WARFARIN INR THERAPY RANGESSTANDARD DOSE: 2.0 - 3.0 Inclu navid: PROPHYLAXIS for venous thrombosis, systemic embolization; TREATMENT for dayna ous thrombosis and/or pulmonary embolus.HIGH RISK: Target INR is 2.5-3.5 for pat ients with mechanical heart valves.CBC W/PLT COUNT & AUTO [id number] 10:44:00* Test Item Value Reference Range Comments WHITE BLOOD CELL COUNT (BEAKER) (test gyvw=885) 12.8 K/ L 3.5-10.5 RED BLOOD CELL COUNT (BEAKER) (test nuhb=236) 3.42 M/ L 4.63-6.08 HEMOGLOBIN (BEAKER) (test qrcp=040) 9.8 GM/DL 13.7-17.5 HEMATOCRIT (BEAKER) (test uzsb=097) 31.4 % 40.1-51.0 MEAN CORPUSCULAR VOLUME (BEAKER) (test hzms=968) 91.8 fL 79.0-92.2 MEAN CORPUSCULAR HEMOGLOBIN (BEAKER) (test rxwl=040) 28.7 pg 25.7-32.2 MEAN CORPUSCULAR HEMOGLOBIN CONC (BEAKER) (test wvrk=654) 31.2 GM/DL 32.3-36.5 RED CELL DISTRIBUTION WIDTH (BEAKER) (test dtzw=279) 15.4 % 11.6-14.4 PLATELET COUNT (BEAKER) (test howj=356) 307 K/CU MM 150-450 MEAN PLATELET VOLUME (BEAKER) (test dtew=606) 9.4 fL 9.4-12.4 NUCLEATED RED BLOOD CELLS (BEAKER) (test erjz=233) 0 /100 WBC 0-0 NEUTROPHILS RELATIVE PERCENT (BEAKER) (test dvku=362) 64 % LYMPHOCYTES RELATIVE PERCENT (BEAKER) (test oygg=621) 13 % MONOCYTES RELATIVE PERCENT (BEAKER) (test nvwn=292) 10 % EOSINOPHILS RELATIVE PERCENT (BEAKER) (test atrq=923) 12 % BASOPHILS RELATIVE PERCENT (BEAKER) (test lapl=996) 1 % NEUTROPHILS ABSOLUTE COUNT (BEAKER) (test weol=265) 8.13 K/ L 1.78-5.38 LYMPHOCYTES ABSOLUTE COUNT (BEAKER) (test tpmn=498) 1.63 K/ L 1.32-3.57 MONOCYTES ABSOLUTE COUNT (BEAKER) (test zmmh=820) 1.23 K/ L 0.30-0.82 EOSINOPHILS ABSOLUTE COUNT (BEAKER) (test tprp=076) 1.59 K/ L 0.04-0.54 BASOPHILS ABSOLUTE COUNT (BEAKER) (test gknj=467) 0.16 K/ L 0.01-0.08 IMMATURE GRANULOCYTES-RELATIVE PERCENT (BEAKER) (test vksf=9801) 1 % 0-1 [id number] 10:20:00* Test Item Value Reference Range Comments MAGNESIUM (BEAKER) (test tayd=811) 2.1 mg/dL 1.6-2.6 BASIC METABOLIC [id number] 10:20:00* Test Item Value Reference Range Comments SODIUM (BEAKER) (test nmse=004) 138 meq/L 136-145 POTASSIUM (BEAKER) (test kjfi=637) 5.0 meq/L 3.5-5.1 CHLORIDE (BEAKER) (test mrxy=583) 105 meq/L 98-107 CO2 (BEAKER) (test kalg=401) 26 meq/L 22-29 BLOOD UREA NITROGEN (BEAKER) (test tvxs=082) 37 mg/dL 7-21 CREATININE (BEAKER) (test wqkm=130) 1.28 mg/dL 0.57-1.25 GLUCOSE RANDOM (BEAKER) (test xrmi=929) 90 mg/dL 70-105 CALCIUM (BEAKER) (test hmnf=862) 9.4 mg/dL 8.4-10.2 EGFR (BEAKER) (test qbdg=9689) 54 mL/min/1.73 sq m ESTIMATED GFR IS NOT ACCURATE CREATININE CLEARANCE IN PREDICTING GLOMERULAR FILTRATION RATE. ESTIMATED GFR IS NOT APPLICABLE FOR DIALYSIS PATIENTS. HEPATIC FUNCTION [id number] 10:20:00* Test Item Value Reference Range Comments TOTAL PROTEIN (BEAKER) (test ntua=351) 7.3 gm/dL 6.0-8.3 ALBUMIN (BEAKER) (test wxeo=3374) 3.4 g/dL 3.5-5.0 BILIRUBIN TOTAL (BEAKER) (test zvhn=828) 0.4 mg/dL 0.2-1.2 BILIRUBIN DIRECT (BEAKER) (test ivlq=542) 0.2 mg/dL 0.1-0.5 ALKALINE PHOSPHATASE (BEAKER) (test zphq=992) 121 U/L 40-150 AST (SGOT) (BEAKER) (test fnxa=381) 19 U/L 5-34 ALT (SGPT) (BEAKER) (test tpoa=880) 9 U/L 6-55 LACTATE DEHYDROGENASE (LDH)2017-11-01 10:20:00* Test Item Value Reference Range Comments LACTATE DEHYDROGENASE (BEAKER) (test uknv=480) 231 U/L 125-220 PROTHROMBIN [id number] 10:16:00* Test Item Value Reference Range Comments PROTIME (BEAKER) (test jxhk=399) 22.2 seconds 11.7-14.7 INR (BEAKER) (test hdwt=320) 2.0 <=5.9 RECOMMENDED COUMADIN/WARFARIN INR THERAPY RANGESSTANDARD DOSE: 2.0 - 3.0 Inclu navid: PROPHYLAXIS for venous thrombosis, systemic embolization; TREATMENT for dayna ous thrombosis and/or pulmonary embolus.HIGH RISK: Target INR is 2.5-3.5 for pat ients with mechanical heart valves.CBC W/PLT COUNT & AUTO [id number] 10:14:00* Test Item Value Reference Range Comments WHITE BLOOD CELL COUNT (BEAKER) (test szxw=554) 11.5 K/ L 3.5-10.5 RED BLOOD CELL COUNT (BEAKER) (test nyew=124) 3.09 M/ L 4.63-6.08 HEMOGLOBIN (BEAKER) (test zsdy=779) 9.0 GM/DL 13.7-17.5 HEMATOCRIT (BEAKER) (test ufef=382) 28.7 % 40.1-51.0 MEAN CORPUSCULAR VOLUME (BEAKER) (test ywol=954) 92.9 fL 79.0-92.2 MEAN CORPUSCULAR HEMOGLOBIN (BEAKER) (test vusj=191) 29.1 pg 25.7-32.2 MEAN CORPUSCULAR HEMOGLOBIN CONC (BEAKER) (test qpjx=716) 31.4 GM/DL 32.3-36.5 RED CELL DISTRIBUTION WIDTH (BEAKER) (test dvag=170) 16.4 % 11.6-14.4 PLATELET COUNT (BEAKER) (test yole=851) 291 K/CU MM 150-450 MEAN PLATELET VOLUME (BEAKER) (test qsdv=336) 9.5 fL 9.4-12.4 NUCLEATED RED BLOOD CELLS (BEAKER) (test osxa=294) 0 /100 WBC 0-0 NEUTROPHILS RELATIVE PERCENT (BEAKER) (test gpbx=070) 59 % LYMPHOCYTES RELATIVE PERCENT (BEAKER) (test pbxp=745) 18 % MONOCYTES RELATIVE PERCENT (BEAKER) (test ulwi=899) 10 % EOSINOPHILS RELATIVE PERCENT (BEAKER) (test gkpw=525) 11 % BASOPHILS RELATIVE PERCENT (BEAKER) (test ettt=529) 1 % NEUTROPHILS ABSOLUTE COUNT (BEAKER) (test qjch=250) 6.76 K/ L 1.78-5.38 LYMPHOCYTES ABSOLUTE COUNT (BEAKER) (test vkzr=833) 2.02 K/ L 1.32-3.57 MONOCYTES ABSOLUTE COUNT (BEAKER) (test efgb=165) 1.19 K/ L 0.30-0.82 EOSINOPHILS ABSOLUTE COUNT (BEAKER) (test rhxy=032) 1.31 K/ L 0.04-0.54 BASOPHILS ABSOLUTE COUNT (BEAKER) (test ysxy=125) 0.14 K/ L 0.01-0.08 IMMATURE GRANULOCYTES-RELATIVE PERCENT (BEAKER) (test yoyw=7861) 1 % 0-1 [id number] 08:08:00* Test Item Value Reference Range Comments MAGNESIUM (BEAKER) (test boqo=596) 2.2 mg/dL 1.6-2.6 BASIC METABOLIC [id number] 08:08:00* Test Item Value Reference Range Comments SODIUM (BEAKER) (test krnw=780) 137 meq/L 136-145 POTASSIUM (BEAKER) (test bteo=278) 4.6 meq/L 3.5-5.1 CHLORIDE (BEAKER) (test uhre=113) 99 meq/L 98-107 CO2 (BEAKER) (test nivy=428) 28 meq/L 22-29 BLOOD UREA NITROGEN (BEAKER) (test kksi=575) 52 mg/dL 7-21 CREATININE (BEAKER) (test vlnt=021) 1.64 mg/dL 0.57-1.25 GLUCOSE RANDOM (BEAKER) (test yroi=890) 103 mg/dL 70-105 CALCIUM (BEAKER) (test cdkj=980) 9.6 mg/dL 8.4-10.2 EGFR (BEAKER) (test jqje=1011) 41 mL/min/1.73 sq m ESTIMATED GFR IS NOT ACCURATE CREATININE CLEARANCE IN PREDICTING GLOMERULAR FILTRATION RATE. ESTIMATED GFR IS NOT APPLICABLE FOR DIALYSIS PATIENTS. HEPATIC FUNCTION [id number] 08:08:00* Test Item Value Reference Range Comments TOTAL PROTEIN (BEAKER) (test xppu=289) 7.5 gm/dL 6.0-8.3 ALBUMIN (BEAKER) (test pifh=8969) 3.5 g/dL 3.5-5.0 BILIRUBIN TOTAL (BEAKER) (test xjcu=550) 0.4 mg/dL 0.2-1.2 BILIRUBIN DIRECT (BEAKER) (test fqhd=845) 0.2 mg/dL 0.1-0.5 ALKALINE PHOSPHATASE (BEAKER) (test plpb=255) 131 U/L 40-150 AST (SGOT) (BEAKER) (test bikj=632) 17 U/L 5-34 ALT (SGPT) (BEAKER) (test sexa=677) 9 U/L 6-55 LACTATE DEHYDROGENASE (LDH)2017-10-25 08:08:00* Test Item Value Reference Range Comments LACTATE DEHYDROGENASE (BEAKER) (test pswm=913) 190 U/L 125-220 PROTHROMBIN [id number] 07:43:00* Test Item Value Reference Range Comments PROTIME (BEAKER) (test rikd=344) 30.4 seconds 11.7-14.7 INR (BEAKER) (test bdkp=293) 2.9 <=5.9 RECOMMENDED COUMADIN/WARFARIN INR THERAPY RANGESSTANDARD DOSE: 2.0 - 3.0 Inclu navid: PROPHYLAXIS for venous thrombosis, systemic embolization; TREATMENT for dayna ous thrombosis and/or pulmonary embolus.HIGH RISK: Target INR is 2.5-3.5 for pat ients with mechanical heart valves.CBC W/PLT COUNT & AUTO [id number] 07:38:00* Test Item Value Reference Range Comments WHITE BLOOD CELL COUNT (BEAKER) (test fbat=708) 13.8 K/ L 3.5-10.5 RED BLOOD CELL COUNT (BEAKER) (test jitw=571) 3.22 M/ L 4.63-6.08 HEMOGLOBIN (BEAKER) (test fuvk=175) 9.2 GM/DL 13.7-17.5 HEMATOCRIT (BEAKER) (test hzvv=672) 30.3 % 40.1-51.0 MEAN CORPUSCULAR VOLUME (BEAKER) (test giyu=308) 94.1 fL 79.0-92.2 MEAN CORPUSCULAR HEMOGLOBIN (BEAKER) (test ozwc=497) 28.6 pg 25.7-32.2 MEAN CORPUSCULAR HEMOGLOBIN CONC (BEAKER) (test rzzb=493) 30.4 GM/DL 32.3-36.5 RED CELL DISTRIBUTION WIDTH (BEAKER) (test ocin=967) 17.5 % 11.6-14.4 PLATELET COUNT (BEAKER) (test mhqd=842) 298 K/CU MM 150-450 MEAN PLATELET VOLUME (BEAKER) (test loma=216) 9.1 fL 9.4-12.4 NUCLEATED RED BLOOD CELLS (BEAKER) (test etrk=985) 0 /100 WBC 0-0 NEUTROPHILS RELATIVE PERCENT (BEAKER) (test xlxz=706) 70 % LYMPHOCYTES RELATIVE PERCENT (BEAKER) (test hxha=994) 14 % MONOCYTES RELATIVE PERCENT (BEAKER) (test jskf=387) 9 % EOSINOPHILS RELATIVE PERCENT (BEAKER) (test btjd=095) 6 % BASOPHILS RELATIVE PERCENT (BEAKER) (test ymme=057) 1 % NEUTROPHILS ABSOLUTE COUNT (BEAKER) (test rowg=048) 9.67 K/ L 1.78-5.38 LYMPHOCYTES ABSOLUTE COUNT (BEAKER) (test jiqd=604) 1.94 K/ L 1.32-3.57 MONOCYTES ABSOLUTE COUNT (BEAKER) (test llll=115) 1.22 K/ L 0.30-0.82 EOSINOPHILS ABSOLUTE COUNT (BEAKER) (test nuhz=199) 0.79 K/ L 0.04-0.54 BASOPHILS ABSOLUTE COUNT (BEAKER) (test xemv=847) 0.10 K/ L 0.01-0.08 IMMATURE GRANULOCYTES-RELATIVE PERCENT (BEAKER) (test wekf=3363) 0 % 0-1 [id number] 11:58:00* Test Item Value Reference Range Comments MAGNESIUM (BEAKER) (test wwme=633) 2.4 mg/dL 1.6-2.6 BASIC METABOLIC [id number] 11:58:00* Test Item Value Reference Range Comments SODIUM (BEAKER) (test exar=837) 139 meq/L 136-145 POTASSIUM (BEAKER) (test wtzy=735) 4.8 meq/L 3.5-5.1 CHLORIDE (BEAKER) (test hjux=960) 101 meq/L 98-107 CO2 (BEAKER) (test skmr=582) 28 meq/L 22-29 BLOOD UREA NITROGEN (BEAKER) (test azmi=316) 50 mg/dL 7-21 CREATININE (BEAKER) (test ychc=281) 1.57 mg/dL 0.57-1.25 GLUCOSE RANDOM (BEAKER) (test viom=843) 89 mg/dL 70-105 CALCIUM (BEAKER) (test jrpe=867) 9.8 mg/dL 8.4-10.2 EGFR (BEAKER) (test cktz=2920) 43 mL/min/1.73 sq m ESTIMATED GFR IS NOT ACCURATE CREATININE CLEARANCE IN PREDICTING GLOMERULAR FILTRATION RATE. ESTIMATED GFR IS NOT APPLICABLE FOR DIALYSIS PATIENTS. HEPATIC FUNCTION [id number] 11:58:00* Test Item Value Reference Range Comments TOTAL PROTEIN (BEAKER) (test dawa=007) 7.8 gm/dL 6.0-8.3 ALBUMIN (BEAKER) (test uixu=8798) 3.5 g/dL 3.5-5.0 BILIRUBIN TOTAL (BEAKER) (test cflm=825) 0.4 mg/dL 0.2-1.2 BILIRUBIN DIRECT (BEAKER) (test lfhv=235) 0.2 mg/dL 0.1-0.5 ALKALINE PHOSPHATASE (BEAKER) (test soxe=269) 146 U/L 40-150 AST (SGOT) (BEAKER) (test xfhy=923) 21 U/L 5-34 ALT (SGPT) (BEAKER) (test ucjg=724) 10 U/L 6-55 LACTATE DEHYDROGENASE (LDH)2017-10-18 11:58:00* Test Item Value Reference Range Comments LACTATE DEHYDROGENASE (BEAKER) (test rerr=621) 253 U/L 125-220 PROTHROMBIN [id number] 11:50:00* Test Item Value Reference Range Comments PROTIME (BEAKER) (test soqn=268) 23.9 seconds 11.7-14.7 INR (BEAKER) (test ykqs=533) 2.1 <=5.9 RECOMMENDED COUMADIN/WARFARIN INR THERAPY RANGESSTANDARD DOSE: 2.0 - 3.0 Inclu navid: PROPHYLAXIS for venous thrombosis, systemic embolization; TREATMENT for dayna ous thrombosis and/or pulmonary embolus.HIGH RISK: Target INR is 2.5-3.5 for pat ients with mechanical heart valves.CBC W/PLT COUNT & AUTO [id number] 11:41:00* Test Item Value Reference Range Comments WHITE BLOOD CELL COUNT (BEAKER) (test qsvo=738) 12.5 K/ L 3.5-10.5 RED BLOOD CELL COUNT (BEAKER) (test awen=629) 3.07 M/ L 4.63-6.08 HEMOGLOBIN (BEAKER) (test lmox=465) 9.0 GM/DL 13.7-17.5 HEMATOCRIT (BEAKER) (test agsm=786) 28.7 % 40.1-51.0 MEAN CORPUSCULAR VOLUME (BEAKER) (test ljjo=126) 93.5 fL 79.0-92.2 MEAN CORPUSCULAR HEMOGLOBIN (BEAKER) (test azui=338) 29.3 pg 25.7-32.2 MEAN CORPUSCULAR HEMOGLOBIN CONC (BEAKER) (test begg=827) 31.4 GM/DL 32.3-36.5 RED CELL DISTRIBUTION WIDTH (BEAKER) (test fmsx=205) 17.6 % 11.6-14.4 PLATELET COUNT (BEAKER) (test ndxn=787) 315 K/CU MM 150-450 MEAN PLATELET VOLUME (BEAKER) (test rlxz=960) 9.7 fL 9.4-12.4 NUCLEATED RED BLOOD CELLS (BEAKER) (test oypn=620) 0 /100 WBC 0-0 NEUTROPHILS RELATIVE PERCENT (BEAKER) (test exke=852) 65 % LYMPHOCYTES RELATIVE PERCENT (BEAKER) (test knzx=715) 18 % MONOCYTES RELATIVE PERCENT (BEAKER) (test ixdj=278) 8 % EOSINOPHILS RELATIVE PERCENT (BEAKER) (test gohv=677) 7 % BASOPHILS RELATIVE PERCENT (BEAKER) (test hsar=675) 1 % NEUTROPHILS ABSOLUTE COUNT (BEAKER) (test zgnq=129) 8.03 K/ L 1.78-5.38 LYMPHOCYTES ABSOLUTE COUNT (BEAKER) (test oqfk=807) 2.29 K/ L 1.32-3.57 MONOCYTES ABSOLUTE COUNT (BEAKER) (test uygv=692) 1.02 K/ L 0.30-0.82 EOSINOPHILS ABSOLUTE COUNT (BEAKER) (test race=065) 0.91 K/ L 0.04-0.54 BASOPHILS ABSOLUTE COUNT (BEAKER) (test kzzr=579) 0.12 K/ L 0.01-0.08 IMMATURE GRANULOCYTES-RELATIVE PERCENT (BEAKER) (test hady=8624) 1 % 0-1 CT, CTAPAULY [id number] 16:19:00FINAL REPORT CTA brain 10/11/2017 2:37 PM CLINICAL INDICATION: 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 COMPARISON: 09/08/2017 TECHNIQUE: Noncontrast CT images of the head were obtained. Axial contrast- enhanced CT angiographic images of the brain were obtained, from which three- dimensional reconstructed images were created. Additional imaging series were created on an independent workstation using maximum intensity projection and volume rendered technique. This examination was performed according to our departmental dose optimization program, which includes automated exposure control, adjustment of the mA and/or kV according to patient size, and/or use of iterated reconstruction technique. FINDINGS: There is an 8 mm faintly hyperdense lesion in the left middle frontal gyrus. On CT angiographic imaging, there is patchy sulcal and parenchymal enhancement in the adjacent posterior left frontal and middle frontal gyri. Findings suggest residua of prior intracranial hemorrhage with blood brain barrier breakdown. There is no evident arteriovenous confirmation. There is no vessel occlusion in the intracranial arterial vascul ature. There is mild stenosis in both carotid siphons, without remarkable branch vessel stenosis. No intracranial aneurysm is evident. The visualized orbits, pa ranasal sinuses, tympanomastoid cavities, and skull are without worrisome findin g. IMPRESSION:1. No intracranial hemorrhage or mass effect.2. Findings suggestin g residua of prior intracranial hemorrhage, with no current defined arteriovenou s malformation. Signed: Leonora Kincaid MDReport Verified Date/Time: 10/11/2017 16:19:34 Reading Location: [facility] Radiology Reading Room Electronical ly signed by: LEONORA KINCAID M.D. on 10/11/2017 04:19 PM [id number] 11:53:00* Test Item Value Reference Range Comments MAGNESIUM (BEAKER) (test wmsx=883) 2.3 mg/dL 1.6-2.6 BASIC METABOLIC [id number] 11:53:00* Test Item Value Reference Range Comments SODIUM (BEAKER) (test yivw=131) 137 meq/L 136-145 POTASSIUM (BEAKER) (test ssrk=141) 4.9 meq/L 3.5-5.1 CHLORIDE (BEAKER) (test smeg=866) 102 meq/L 98-107 CO2 (BEAKER) (test wbqz=196) 29 meq/L 22-29 BLOOD UREA NITROGEN (BEAKER) (test rycr=196) 38 mg/dL 7-21 CREATININE (BEAKER) (test lxug=023) 1.34 mg/dL 0.57-1.25 GLUCOSE RANDOM (BEAKER) (test ugum=793) 91 mg/dL 70-105 CALCIUM (BEAKER) (test oktc=169) 9.9 mg/dL 8.4-10.2 EGFR (BEAKER) (test cxiy=3143) 51 mL/min/1.73 sq m ESTIMATED GFR IS NOT ACCURATE CREATININE CLEARANCE IN PREDICTING GLOMERULAR FILTRATION RATE. ESTIMATED GFR IS NOT APPLICABLE FOR DIALYSIS PATIENTS. HEPATIC FUNCTION [id number] 11:53:00* Test Item Value Reference Range Comments TOTAL PROTEIN (BEAKER) (test ntue=732) 7.5 gm/dL 6.0-8.3 ALBUMIN (BEAKER) (test qnjx=2519) 3.3 g/dL 3.5-5.0 BILIRUBIN TOTAL (BEAKER) (test smvg=394) 0.4 mg/dL 0.2-1.2 BILIRUBIN DIRECT (BEAKER) (test dxfk=498) 0.3 mg/dL 0.1-0.5 ALKALINE PHOSPHATASE (BEAKER) (test wtqb=961) 124 U/L 40-150 AST (SGOT) (BEAKER) (test uyzm=752) 23 U/L 5-34 ALT (SGPT) (BEAKER) (test gxeo=782) 11 U/L 6-55 LACTATE DEHYDROGENASE (LDH)2017-10-11 11:53:00* Test Item Value Reference Range Comments LACTATE DEHYDROGENASE (BEAKER) (test boxy=764) 212 U/L 125-220 PROTHROMBIN [id number] 11:30:00* Test Item Value Reference Range Comments PROTIME (BEAKER) (test ciib=890) 18.3 seconds 11.7-14.7 INR (BEAKER) (test dike=999) 1.5 <=5.9 RECOMMENDED COUMADIN/WARFARIN INR THERAPY RANGESSTANDARD DOSE: 2.0 - 3.0 Inclu navid: PROPHYLAXIS for venous thrombosis, systemic embolization; TREATMENT for dayna ous thrombosis and/or pulmonary embolus.HIGH RISK: Target INR is 2.5-3.5 for pat ients with mechanical heart valves.CBC W/PLT COUNT & AUTO [id number] 11:23:00* Test Item Value Reference Range Comments WHITE BLOOD CELL COUNT (BEAKER) (test yqji=314) 10.2 K/ L 3.5-10.5 RED BLOOD CELL COUNT (BEAKER) (test zxeg=218) 3.19 M/ L 4.63-6.08 HEMOGLOBIN (BEAKER) (test peqg=826) 9.2 GM/DL 13.7-17.5 HEMATOCRIT (BEAKER) (test bnwj=703) 29.3 % 40.1-51.0 MEAN CORPUSCULAR VOLUME (BEAKER) (test fdem=921) 91.8 fL 79.0-92.2 MEAN CORPUSCULAR HEMOGLOBIN (BEAKER) (test plsn=535) 28.8 pg 25.7-32.2 MEAN CORPUSCULAR HEMOGLOBIN CONC (BEAKER) (test ipgn=314) 31.4 GM/DL 32.3-36.5 RED CELL DISTRIBUTION WIDTH (BEAKER) (test cfqw=939) 17.5 % 11.6-14.4 PLATELET COUNT (BEAKER) (test dcdl=593) 288 K/CU MM 150-450 MEAN PLATELET VOLUME (BEAKER) (test mybd=699) 8.8 fL 9.4-12.4 NUCLEATED RED BLOOD CELLS (BEAKER) (test wgmc=753) 0 /100 WBC 0-0 NEUTROPHILS RELATIVE PERCENT (BEAKER) (test kslr=474) 63 % LYMPHOCYTES RELATIVE PERCENT (BEAKER) (test xpvx=742) 19 % MONOCYTES RELATIVE PERCENT (BEAKER) (test bhlx=949) 9 % EOSINOPHILS RELATIVE PERCENT (BEAKER) (test dzny=102) 8 % BASOPHILS RELATIVE PERCENT (BEAKER) (test dlax=592) 1 % NEUTROPHILS ABSOLUTE COUNT (BEAKER) (test icvn=547) 6.40 K/ L 1.78-5.38 LYMPHOCYTES ABSOLUTE COUNT (BEAKER) (test hcue=058) 1.92 K/ L 1.32-3.57 MONOCYTES ABSOLUTE COUNT (BEAKER) (test jjcz=496) 0.90 K/ L 0.30-0.82 EOSINOPHILS ABSOLUTE COUNT (BEAKER) (test koup=881) 0.79 K/ L 0.04-0.54 BASOPHILS ABSOLUTE COUNT (BEAKER) (test pwvk=397) 0.10 K/ L 0.01-0.08 IMMATURE GRANULOCYTES-RELATIVE PERCENT (BEAKER) (test ehyu=5689) 1 % 0-1 [id number] 12:00:00* Test Item Value Reference Range Comments MAGNESIUM (BEAKER) (test zzsg=163) 2.1 mg/dL 1.6-2.6 BASIC METABOLIC [id number] 12:00:00* Test Item Value Reference Range Comments SODIUM (BEAKER) (test nifl=965) 137 meq/L 136-145 POTASSIUM (BEAKER) (test yqst=120) 5.1 meq/L 3.5-5.1 CHLORIDE (BEAKER) (test ftpm=302) 100 meq/L 98-107 CO2 (BEAKER) (test xtdn=187) 30 meq/L 22-29 BLOOD UREA NITROGEN (BEAKER) (test mtfe=396) 38 mg/dL 7-21 CREATININE (BEAKER) (test fteo=208) 1.18 mg/dL 0.57-1.25 GLUCOSE RANDOM (BEAKER) (test swux=871) 99 mg/dL 70-105 CALCIUM (BEAKER) (test bzhk=901) 9.9 mg/dL 8.4-10.2 EGFR (BEAKER) (test uzjt=0453) 59 mL/min/1.73 sq m ESTIMATED GFR IS NOT ACCURATE CREATININE CLEARANCE IN PREDICTING GLOMERULAR FILTRATION RATE. ESTIMATED GFR IS NOT APPLICABLE FOR DIALYSIS PATIENTS. HEPATIC FUNCTION [id number] 12:00:00* Test Item Value Reference Range Comments TOTAL PROTEIN (BEAKER) (test fvva=811) 8.4 gm/dL 6.0-8.3 ALBUMIN (BEAKER) (test aigc=0673) 3.5 g/dL 3.5-5.0 BILIRUBIN TOTAL (BEAKER) (test ghzs=678) 0.7 mg/dL 0.2-1.2 BILIRUBIN DIRECT (BEAKER) (test juim=067) 0.4 mg/dL 0.1-0.5 ALKALINE PHOSPHATASE (BEAKER) (test etmp=491) 124 U/L 40-150 AST (SGOT) (BEAKER) (test yfvn=812) 20 U/L 5-34 ALT (SGPT) (BEAKER) (test emet=804) 15 U/L 6-55 LACTATE DEHYDROGENASE (LDH)2017-10-04 12:00:00* Test Item Value Reference Range Comments LACTATE DEHYDROGENASE (BEAKER) (test xioc=503) 270 U/L 125-220 PROTHROMBIN TIME/[id number] 11:40:00* Test Item Value Reference Range Comments PROTIME (BEAKER) (test yphr=589) 14.4 seconds 11.7-14.7 INR (BEAKER) (test zryc=174) 1.1 <=5.9 RECOMMENDED COUMADIN/WARFARIN INR THERAPY RANGESSTANDARD DOSE: 2.0 - 3.0 Inclu navid: PROPHYLAXIS for venous thrombosis, systemic embolization; TREATMENT for dayna ous thrombosis and/or pulmonary embolus.HIGH RISK: Target INR is 2.5-3.5 for pat ients with mechanical heart valves.CBC W/PLT COUNT & AUTO [id number] 11:39:00* Test Item Value Reference Range Comments WHITE BLOOD CELL COUNT (BEAKER) (test ztte=228) 11.7 K/ L 3.5-10.5 RED BLOOD CELL COUNT (BEAKER) (test ypma=591) 3.22 M/ L 4.63-6.08 HEMOGLOBIN (BEAKER) (test nwgm=191) 9.2 GM/DL 13.7-17.5 HEMATOCRIT (BEAKER) (test shnp=606) 29.7 % 40.1-51.0 MEAN CORPUSCULAR VOLUME (BEAKER) (test whzk=418) 92.2 fL 79.0-92.2 MEAN CORPUSCULAR HEMOGLOBIN (BEAKER) (test juxh=174) 28.6 pg 25.7-32.2 MEAN CORPUSCULAR HEMOGLOBIN CONC (BEAKER) (test vjjp=671) 31.0 GM/DL 32.3-36.5 RED CELL DISTRIBUTION WIDTH (BEAKER) (test amkj=013) 18.0 % 11.6-14.4 PLATELET COUNT (BEAKER) (test btnv=650) 293 K/CU MM 150-450 MEAN PLATELET VOLUME (BEAKER) (test rnzq=602) 8.9 fL 9.4-12.4 NUCLEATED RED BLOOD CELLS (BEAKER) (test uafe=448) 0 /100 WBC 0-0 NEUTROPHILS RELATIVE PERCENT (BEAKER) (test preu=187) 70 % LYMPHOCYTES RELATIVE PERCENT (BEAKER) (test vmtm=676) 16 % MONOCYTES RELATIVE PERCENT (BEAKER) (test jqhy=934) 6 % EOSINOPHILS RELATIVE PERCENT (BEAKER) (test ljzw=223) 7 % BASOPHILS RELATIVE PERCENT (BEAKER) (test hmtn=327) 1 % NEUTROPHILS ABSOLUTE COUNT (BEAKER) (test gdwl=477) 8.13 K/ L 1.78-5.38 LYMPHOCYTES ABSOLUTE COUNT (BEAKER) (test fzil=133) 1.87 K/ L 1.32-3.57 MONOCYTES ABSOLUTE COUNT (BEAKER) (test vfso=093) 0.68 K/ L 0.30-0.82 EOSINOPHILS ABSOLUTE COUNT (BEAKER) (test tmnu=033) 0.83 K/ L 0.04-0.54 BASOPHILS ABSOLUTE COUNT (BEAKER) (test ozqu=889) 0.08 K/ L 0.01-0.08 IMMATURE GRANULOCYTES-RELATIVE PERCENT (BEAKER) (test akrm=4138) 1 % 0-1 BASIC METABOLIC [id number] 06:44:00* Test Item Value Reference Range Comments SODIUM (BEAKER) (test xcrq=951) 135 meq/L 136-145 POTASSIUM (BEAKER) (test myjb=946) 4.7 meq/L 3.5-5.1 CHLORIDE (BEAKER) (test lbyp=411) 101 meq/L 98-107 CO2 (BEAKER) (test mbpj=349) 27 meq/L 22-29 BLOOD UREA NITROGEN (BEAKER) (test jccr=112) 43 mg/dL 7-21 CREATININE (BEAKER) (test fwac=906) 1.02 mg/dL 0.57-1.25 GLUCOSE RANDOM (BEAKER) (test fsep=930) 78 mg/dL 70-105 CALCIUM (BEAKER) (test blew=195) 9.4 mg/dL 8.4-10.2 EGFR (BEAKER) (test tbuv=9213) 70 mL/min/1.73 sq m ESTIMATED GFR IS NOT ACCURATE CREATININE CLEARANCE IN PREDICTING GLOMERULAR FILTRATION RATE. ESTIMATED GFR IS NOT APPLICABLE FOR DIALYSIS PATIENTS. PROTHROMBIN TIME/[id number] 06:42:00* Test Item Value Reference Range Comments PROTIME (BEAKER) (test iooe=299) 23.8 seconds 11.7-14.7 INR (BEAKER) (test vnjt=932) 2.1 <=5.9 RECOMMENDED COUMADIN/WARFARIN INR THERAPY RANGESSTANDARD DOSE: 2.0 - 3.0 Inclu navid: PROPHYLAXIS for venous thrombosis, systemic embolization; TREATMENT for dayna ous thrombosis and/or pulmonary embolus.HIGH RISK: Target INR is 2.5-3.5 for pat ients with mechanical heart valves.CBC (HEMOGRAM ONLY)2017-09-29 06:11:00* Test Item Value Reference Range Comments WHITE BLOOD CELL COUNT (BEAKER) (test mhlc=429) 10.4 K/ L 3.5-10.5 RED BLOOD CELL COUNT (BEAKER) (test gomk=789) 2.72 M/ L 4.63-6.08 HEMOGLOBIN (BEAKER) (test ggov=972) 7.8 GM/DL 13.7-17.5 HEMATOCRIT (BEAKER) (test gbme=857) 24.3 % 40.1-51.0 MEAN CORPUSCULAR VOLUME (BEAKER) (test ggou=711) 89.3 fL 79.0-92.2 MEAN CORPUSCULAR HEMOGLOBIN (BEAKER) (test uziw=634) 28.7 pg 25.7-32.2 MEAN CORPUSCULAR HEMOGLOBIN CONC (BEAKER) (test hrww=738) 32.1 GM/DL 32.3-36.5 RED CELL DISTRIBUTION WIDTH (BEAKER) (test vfxa=480) 18.4 % 11.6-14.4 PLATELET COUNT (BEAKER) (test zyxh=004) 260 K/CU MM 150-450 MEAN PLATELET VOLUME (BEAKER) (test xddj=655) 9.4 fL 9.4-12.4 NUCLEATED RED BLOOD CELLS (BEAKER) (test lpkx=208) 0 /100 WBC 0-0 BASIC METABOLIC [id number] 06:55:00* Test Item Value Reference Range Comments SODIUM (BEAKER) (test igjk=127) 135 meq/L 136-145 POTASSIUM (BEAKER) (test phpf=198) 4.6 meq/L 3.5-5.1 CHLORIDE (BEAKER) (test kzxe=711) 101 meq/L 98-107 CO2 (BEAKER) (test yqzr=053) 25 meq/L 22-29 BLOOD UREA NITROGEN (BEAKER) (test pyhj=163) 46 mg/dL 7-21 CREATININE (BEAKER) (test apnf=978) 0.99 mg/dL 0.57-1.25 GLUCOSE RANDOM (BEAKER) (test hkbg=506) 75 mg/dL 70-105 CALCIUM (BEAKER) (test afja=249) 9.3 mg/dL 8.4-10.2 EGFR (BEAKER) (test sssz=4571) 73 mL/min/1.73 sq m ESTIMATED GFR IS NOT ACCURATE CREATININE CLEARANCE IN PREDICTING GLOMERULAR FILTRATION RATE. ESTIMATED GFR IS NOT APPLICABLE FOR DIALYSIS PATIENTS. PROTHROMBIN TIME/[id number] 06:40:00* Test Item Value Reference Range Comments PROTIME (BEAKER) (test frak=752) 27.0 seconds 11.7-14.7 INR (BEAKER) (test rdrw=134) 2.5 <=5.9 RECOMMENDED COUMADIN/WARFARIN INR THERAPY RANGESSTANDARD DOSE: 2.0 - 3.0 Inclu navid: PROPHYLAXIS for venous thrombosis, systemic embolization; TREATMENT for dayna ous thrombosis and/or pulmonary embolus.HIGH RISK: Target INR is 2.5-3.5 for pat ients with mechanical heart valves.CBC (HEMOGRAM ONLY)2017-09-28 06:38:00* Test Item Value Reference Range Comments WHITE BLOOD CELL COUNT (BEAKER) (test djxb=323) 11.8 K/ L 3.5-10.5 RED BLOOD CELL COUNT (BEAKER) (test usgh=331) 2.81 M/ L 4.63-6.08 HEMOGLOBIN (BEAKER) (test iybr=826) 7.8 GM/DL 13.7-17.5 HEMATOCRIT (BEAKER) (test wqlf=989) 25.0 % 40.1-51.0 MEAN CORPUSCULAR VOLUME (BEAKER) (test iody=034) 89.0 fL 79.0-92.2 MEAN CORPUSCULAR HEMOGLOBIN (BEAKER) (test hair=730) 27.8 pg 25.7-32.2 MEAN CORPUSCULAR HEMOGLOBIN CONC (BEAKER) (test itwn=545) 31.2 GM/DL 32.3-36.5 RED CELL DISTRIBUTION WIDTH (BEAKER) (test ngrm=658) 18.4 % 11.6-14.4 PLATELET COUNT (BEAKER) (test skim=850) 285 K/CU MM 150-450 MEAN PLATELET VOLUME (BEAKER) (test xiwt=691) 9.8 fL 9.4-12.4 NUCLEATED RED BLOOD CELLS (BEAKER) (test ocgd=403) 0 /100 WBC 0-0 BASIC METABOLIC [id number] 07:42:00* Test Item Value Reference Range Comments SODIUM (BEAKER) (test zpgf=926) 135 meq/L 136-145 POTASSIUM (BEAKER) (test dkoq=356) 4.3 meq/L 3.5-5.1 CHLORIDE (BEAKER) (test anzu=669) 100 meq/L 98-107 CO2 (BEAKER) (test qosu=222) 27 meq/L 22-29 BLOOD UREA NITROGEN (BEAKER) (test rllr=533) 45 mg/dL 7-21 CREATININE (BEAKER) (test suef=574) 1.04 mg/dL 0.57-1.25 GLUCOSE RANDOM (BEAKER) (test lfcu=167) 77 mg/dL 70-105 CALCIUM (BEAKER) (test fhzj=885) 9.6 mg/dL 8.4-10.2 EGFR (BEAKER) (test fvpc=4876) 69 mL/min/1.73 sq m ESTIMATED GFR IS NOT ACCURATE CREATININE CLEARANCE IN PREDICTING GLOMERULAR FILTRATION RATE. ESTIMATED GFR IS NOT APPLICABLE FOR DIALYSIS PATIENTS. PROTHROMBIN TIME/[id number] 07:23:00* Test Item Value Reference Range Comments PROTIME (BEAKER) (test xtvd=969) 30.6 seconds 11.7-14.7 INR (BEAKER) (test byow=099) 2.9 <=5.9 RECOMMENDED COUMADIN/WARFARIN INR THERAPY RANGESSTANDARD DOSE: 2.0 - 3.0 Inclu navid: PROPHYLAXIS for venous thrombosis, systemic embolization; TREATMENT for dayna ous thrombosis and/or pulmonary embolus.HIGH RISK: Target INR is 2.5-3.5 for pat ients with mechanical heart valves.CBC (HEMOGRAM ONLY)2017-09-27 07:10:00* Test Item Value Reference Range Comments WHITE BLOOD CELL COUNT (BEAKER) (test qnbt=183) 12.6 K/ L 3.5-10.5 RED BLOOD CELL COUNT (BEAKER) (test llra=380) 2.84 M/ L 4.63-6.08 HEMOGLOBIN (BEAKER) (test vsom=173) 8.0 GM/DL 13.7-17.5 HEMATOCRIT (BEAKER) (test gmfl=648) 25.4 % 40.1-51.0 MEAN CORPUSCULAR VOLUME (BEAKER) (test tolk=396) 89.4 fL 79.0-92.2 MEAN CORPUSCULAR HEMOGLOBIN (BEAKER) (test rvxr=686) 28.2 pg 25.7-32.2 MEAN CORPUSCULAR HEMOGLOBIN CONC (BEAKER) (test vlka=881) 31.5 GM/DL 32.3-36.5 RED CELL DISTRIBUTION WIDTH (BEAKER) (test xxzd=670) 18.2 % 11.6-14.4 PLATELET COUNT (BEAKER) (test efhr=139) 276 K/CU MM 150-450 MEAN PLATELET VOLUME (BEAKER) (test bunn=637) 9.4 fL 9.4-12.4 NUCLEATED RED BLOOD CELLS (BEAKER) (test qmcf=464) 0 /100 WBC 0-0 BASIC METABOLIC [id number] 07:26:00* Test Item Value Reference Range Comments SODIUM (BEAKER) (test dawd=060) 136 meq/L 136-145 POTASSIUM (BEAKER) (test garx=861) 4.5 meq/L 3.5-5.1 CHLORIDE (BEAKER) (test sxug=440) 102 meq/L 98-107 CO2 (BEAKER) (test azvl=239) 26 meq/L 22-29 BLOOD UREA NITROGEN (BEAKER) (test gshv=548) 51 mg/dL 7-21 CREATININE (BEAKER) (test bsvi=533) 1.16 mg/dL 0.57-1.25 GLUCOSE RANDOM (BEAKER) (test lcij=418) 81 mg/dL 70-105 CALCIUM (BEAKER) (test rrhe=424) 9.7 mg/dL 8.4-10.2 EGFR (BEAKER) (test okxz=7910) 61 mL/min/1.73 sq m ESTIMATED GFR IS NOT ACCURATE CREATININE CLEARANCE IN PREDICTING GLOMERULAR FILTRATION RATE. ESTIMATED GFR IS NOT APPLICABLE FOR DIALYSIS PATIENTS. PROTHROMBIN TIME/[id number] 07:10:00* Test Item Value Reference Range Comments PROTIME (BEAKER) (test dflb=165) 28.4 seconds 11.7-14.7 INR (BEAKER) (test szqi=004) 2.7 <=5.9 RECOMMENDED COUMADIN/WARFARIN INR THERAPY RANGESSTANDARD DOSE: 2.0 - 3.0 Inclu navid: PROPHYLAXIS for venous thrombosis, systemic embolization; TREATMENT for dayna ous thrombosis and/or pulmonary embolus.HIGH RISK: Target INR is 2.5-3.5 for pat ients with mechanical heart valves.CBC (HEMOGRAM ONLY)2017-09-26 07:00:00* Test Item Value Reference Range Comments WHITE BLOOD CELL COUNT (BEAKER) (test aran=506) 12.4 K/ L 3.5-10.5 RED BLOOD CELL COUNT (BEAKER) (test qsus=203) 2.81 M/ L 4.63-6.08 HEMOGLOBIN (BEAKER) (test apde=847) 7.9 GM/DL 13.7-17.5 HEMATOCRIT (BEAKER) (test nzjh=570) 25.2 % 40.1-51.0 MEAN CORPUSCULAR VOLUME (BEAKER) (test oyjk=473) 89.7 fL 79.0-92.2 MEAN CORPUSCULAR HEMOGLOBIN (BEAKER) (test fsmj=408) 28.1 pg 25.7-32.2 MEAN CORPUSCULAR HEMOGLOBIN CONC (BEAKER) (test eqwf=949) 31.3 GM/DL 32.3-36.5 RED CELL DISTRIBUTION WIDTH (BEAKER) (test ttlj=911) 18.5 % 11.6-14.4 PLATELET COUNT (BEAKER) (test shgz=128) 272 K/CU MM 150-450 MEAN PLATELET VOLUME (BEAKER) (test jldt=120) 9.4 fL 9.4-12.4 NUCLEATED RED BLOOD CELLS (BEAKER) (test cpcp=366) 0 /100 WBC 0-0 BASIC METABOLIC [id number] 05:57:00* Test Item Value Reference Range Comments SODIUM (BEAKER) (test uphm=954) 133 meq/L 136-145 POTASSIUM (BEAKER) (test ghqc=006) 4.5 meq/L 3.5-5.1 CHLORIDE (BEAKER) (test zgbe=139) 100 meq/L 98-107 CO2 (BEAKER) (test egiw=330) 24 meq/L 22-29 BLOOD UREA NITROGEN (BEAKER) (test lxqs=338) 50 mg/dL 7-21 CREATININE (BEAKER) (test ntkk=879) 1.18 mg/dL 0.57-1.25 GLUCOSE RANDOM (BEAKER) (test nibi=888) 80 mg/dL 70-105 CALCIUM (BEAKER) (test tkla=671) 9.7 mg/dL 8.4-10.2 EGFR (BEAKER) (test mrzv=7130) 59 mL/min/1.73 sq m ESTIMATED GFR IS NOT ACCURATE CREATININE CLEARANCE IN PREDICTING GLOMERULAR FILTRATION RATE. ESTIMATED GFR IS NOT APPLICABLE FOR DIALYSIS PATIENTS. PROTHROMBIN TIME/[id number] 05:55:00* Test Item Value Reference Range Comments PROTIME (BEAKER) (test wmtg=508) 26.2 seconds 11.7-14.7 INR (BEAKER) (test vycb=456) 2.4 <=5.9 RECOMMENDED COUMADIN/WARFARIN INR THERAPY RANGESSTANDARD DOSE: 2.0 - 3.0 Inclu navid: PROPHYLAXIS for venous thrombosis, systemic embolization; TREATMENT for dayna ous thrombosis and/or pulmonary embolus.HIGH RISK: Target INR is 2.5-3.5 for pat ients with mechanical heart valves.CBC (HEMOGRAM ONLY)2017-09-25 05:42:00* Test Item Value Reference Range Comments WHITE BLOOD CELL COUNT (BEAKER) (test khzy=425) 14.2 K/ L 3.5-10.5 RED BLOOD CELL COUNT (BEAKER) (test gwes=573) 2.93 M/ L 4.63-6.08 HEMOGLOBIN (BEAKER) (test rpot=529) 8.2 GM/DL 13.7-17.5 HEMATOCRIT (BEAKER) (test ahxv=199) 26.0 % 40.1-51.0 MEAN CORPUSCULAR VOLUME (BEAKER) (test mosu=450) 88.7 fL 79.0-92.2 MEAN CORPUSCULAR HEMOGLOBIN (BEAKER) (test kfkq=419) 28.0 pg 25.7-32.2 MEAN CORPUSCULAR HEMOGLOBIN CONC (BEAKER) (test nqib=096) 31.5 GM/DL 32.3-36.5 RED CELL DISTRIBUTION WIDTH (BEAKER) (test aibv=197) 18.4 % 11.6-14.4 PLATELET COUNT (BEAKER) (test ukzz=292) 292 K/CU MM 150-450 MEAN PLATELET VOLUME (BEAKER) (test qtye=299) 9.3 fL 9.4-12.4 NUCLEATED RED BLOOD CELLS (BEAKER) (test banj=899) 0 /100 WBC 0-0 BASIC METABOLIC [id number] 10:32:00* Test Item Value Reference Range Comments SODIUM (BEAKER) (test guxa=843) 133 meq/L 136-145 POTASSIUM (BEAKER) (test mzpx=005) 4.6 meq/L 3.5-5.1 CHLORIDE (BEAKER) (test sbcn=086) 101 meq/L 98-107 CO2 (BEAKER) (test suzf=793) 23 meq/L 22-29 BLOOD UREA NITROGEN (BEAKER) (test xcdg=903) 50 mg/dL 7-21 CREATININE (BEAKER) (test dynm=428) 1.09 mg/dL 0.57-1.25 GLUCOSE RANDOM (BEAKER) (test zeha=166) 77 mg/dL 70-105 CALCIUM (BEAKER) (test kupu=715) 9.8 mg/dL 8.4-10.2 EGFR (BEAKER) (test bxrb=3339) 65 mL/min/1.73 sq m ESTIMATED GFR IS NOT ACCURATE CREATININE CLEARANCE IN PREDICTING GLOMERULAR FILTRATION RATE. ESTIMATED GFR IS NOT APPLICABLE FOR DIALYSIS PATIENTS. PROTHROMBIN TIME/[id number] 07:16:00* Test Item Value Reference Range Comments PROTIME (BEAKER) (test nqqe=609) 23.9 seconds 11.7-14.7 INR (BEAKER) (test fzhm=475) 2.1 <=5.9 RECOMMENDED COUMADIN/WARFARIN INR THERAPY RANGESSTANDARD DOSE: 2.0 - 3.0 Inclu navid: PROPHYLAXIS for venous thrombosis, systemic embolization; TREATMENT for dayna ous thrombosis and/or pulmonary embolus.HIGH RISK: Target INR is 2.5-3.5 for pat ients with mechanical heart valves.CBC (HEMOGRAM ONLY)2017-09-24 07:11:00* Test Item Value Reference Range Comments WHITE BLOOD CELL COUNT (BEAKER) (test bwva=082) 13.6 K/ L 3.5-10.5 RED BLOOD CELL COUNT (BEAKER) (test babf=628) 2.97 M/ L 4.63-6.08 HEMOGLOBIN (BEAKER) (test hitq=411) 8.3 GM/DL 13.7-17.5 HEMATOCRIT (BEAKER) (test fwpg=854) 26.4 % 40.1-51.0 MEAN CORPUSCULAR VOLUME (BEAKER) (test omff=443) 88.9 fL 79.0-92.2 MEAN CORPUSCULAR HEMOGLOBIN (BEAKER) (test sdyk=310) 27.9 pg 25.7-32.2 MEAN CORPUSCULAR HEMOGLOBIN CONC (BEAKER) (test fcxh=292) 31.4 GM/DL 32.3-36.5 RED CELL DISTRIBUTION WIDTH (BEAKER) (test tybp=020) 18.5 % 11.6-14.4 PLATELET COUNT (BEAKER) (test qulf=744) 324 K/CU MM 150-450 MEAN PLATELET VOLUME (BEAKER) (test gfzo=915) 9.5 fL 9.4-12.4 NUCLEATED RED BLOOD CELLS (BEAKER) (test ttdj=336) 0 /100 WBC 0-0 [id number] 12:37:00* Test Item Value Reference Range Comments PARTIAL THROMBOPLASTIN TIME (BEAKER) (test zumm=915) 52.8 seconds 22.5-36.0 CBC (HEMOGRAM ONLY)2017-09-23 07:45:00* Test Item Value Reference Range Comments WHITE BLOOD CELL COUNT (BEAKER) (test gawt=115) 13.7 K/ L 3.5-10.5 RED BLOOD CELL COUNT (BEAKER) (test kdgz=109) 2.89 M/ L 4.63-6.08 HEMOGLOBIN (BEAKER) (test teia=178) 8.1 GM/DL 13.7-17.5 HEMATOCRIT (BEAKER) (test zlsh=362) 25.9 % 40.1-51.0 MEAN CORPUSCULAR VOLUME (BEAKER) (test fdit=963) 89.6 fL 79.0-92.2 MEAN CORPUSCULAR HEMOGLOBIN (BEAKER) (test cbxl=491) 28.0 pg 25.7-32.2 MEAN CORPUSCULAR HEMOGLOBIN CONC (BEAKER) (test ckvz=452) 31.3 GM/DL 32.3-36.5 RED CELL DISTRIBUTION WIDTH (BEAKER) (test llbr=901) 18.4 % 11.6-14.4 PLATELET COUNT (BEAKER) (test rfdn=318) 329 K/CU MM 150-450 MEAN PLATELET VOLUME (BEAKER) (test mfeo=532) 9.7 fL 9.4-12.4 NUCLEATED RED BLOOD CELLS (BEAKER) (test xgyi=001) 0 /100 WBC 0-0 BASIC METABOLIC [id number] 07:39:00* Test Item Value Reference Range Comments SODIUM (BEAKER) (test bnfn=959) 132 meq/L 136-145 POTASSIUM (BEAKER) (test dils=586) 4.5 meq/L 3.5-5.1 CHLORIDE (BEAKER) (test amiv=127) 100 meq/L 98-107 CO2 (BEAKER) (test igzi=577) 21 meq/L 22-29 BLOOD UREA NITROGEN (BEAKER) (test kntv=091) 52 mg/dL 7-21 CREATININE (BEAKER) (test lyui=275) 1.10 mg/dL 0.57-1.25 GLUCOSE RANDOM (BEAKER) (test frch=224) 78 mg/dL 70-105 CALCIUM (BEAKER) (test wpjp=700) 9.8 mg/dL 8.4-10.2 EGFR (BEAKER) (test yzmy=8278) 64 mL/min/1.73 sq m ESTIMATED GFR IS NOT ACCURATE CREATININE CLEARANCE IN PREDICTING GLOMERULAR FILTRATION RATE. ESTIMATED GFR IS NOT APPLICABLE FOR DIALYSIS PATIENTS. [id number] 04:13:00* Test Item Value Reference Range Comments PARTIAL THROMBOPLASTIN TIME (BEAKER) (test zpel=566) 86.1 seconds 22.5-36.0 PROTHROMBIN TIME/[id number] 04:12:00* Test Item Value Reference Range Comments PROTIME (BEAKER) (test rxoc=470) 23.4 seconds 11.7-14.7 INR (BEAKER) (test shnx=263) 2.1 <=5.9 RECOMMENDED COUMADIN/WARFARIN INR THERAPY RANGESSTANDARD DOSE: 2.0 - 3.0 Inclu navid: PROPHYLAXIS for venous thrombosis, systemic embolization; TREATMENT for dayna ous thrombosis and/or pulmonary embolus.HIGH RISK: Target INR is 2.5-3.5 for pat ients with mechanical heart valves.[id number] 20:42:00* Test Item Value Reference Range Comments PARTIAL THROMBOPLASTIN TIME (BEAKER) (test zqio=928) 63.2 seconds 22.5-36.0 [id number] 13:40:00* Test Item Value Reference Range Comments PARTIAL THROMBOPLASTIN TIME (BEAKER) (test wkeo=169) 57.2 seconds 22.5-36.0 PROTHROMBIN TIME/[id number] 08:36:00* Test Item Value Reference Range Comments PROTIME (BEAKER) (test amjk=544) 21.2 seconds 11.7-14.7 INR (BEAKER) (test wthj=154) 1.8 <=5.9 RECOMMENDED COUMADIN/WARFARIN INR THERAPY RANGESSTANDARD DOSE: 2.0 - 3.0 Inclu navid: PROPHYLAXIS for venous thrombosis, systemic embolization; TREATMENT for dayna ous thrombosis and/or pulmonary embolus.HIGH RISK: Target INR is 2.5-3.5 for pat ients with mechanical heart valves.BASIC METABOLIC [id number] 07:30:00* Test Item Value Reference Range Comments SODIUM (BEAKER) (test pwib=732) 129 meq/L 136-145 POTASSIUM (BEAKER) (test xppu=616) 4.3 meq/L 3.5-5.1 CHLORIDE (BEAKER) (test oaor=114) 97 meq/L 98-107 CO2 (BEAKER) (test wrbe=269) 26 meq/L 22-29 BLOOD UREA NITROGEN (BEAKER) (test chvz=642) 49 mg/dL 7-21 CREATININE (BEAKER) (test enhd=644) 1.15 mg/dL 0.57-1.25 GLUCOSE RANDOM (BEAKER) (test ntjx=778) 89 mg/dL 70-105 CALCIUM (BEAKER) (test lcqh=080) 10.2 mg/dL 8.4-10.2 EGFR (BEAKER) (test fktg=4992) 61 mL/min/1.73 sq m ESTIMATED GFR IS NOT ACCURATE CREATININE CLEARANCE IN PREDICTING GLOMERULAR FILTRATION RATE. ESTIMATED GFR IS NOT APPLICABLE FOR DIALYSIS PATIENTS. [id number] 07:22:00* Test Item Value Reference Range Comments PARTIAL THROMBOPLASTIN TIME (BEAKER) (test oxus=524) 64.6 seconds 22.5-36.0 CBC (HEMOGRAM ONLY)2017-09-22 07:11:00* Test Item Value Reference Range Comments WHITE BLOOD CELL COUNT (BEAKER) (test rals=800) 13.7 K/ L 3.5-10.5 RED BLOOD CELL COUNT (BEAKER) (test sdnx=773) 2.94 M/ L 4.63-6.08 HEMOGLOBIN (BEAKER) (test nona=649) 8.3 GM/DL 13.7-17.5 HEMATOCRIT (BEAKER) (test avra=045) 26.0 % 40.1-51.0 MEAN CORPUSCULAR VOLUME (BEAKER) (test fuul=836) 88.4 fL 79.0-92.2 MEAN CORPUSCULAR HEMOGLOBIN (BEAKER) (test urgk=143) 28.2 pg 25.7-32.2 MEAN CORPUSCULAR HEMOGLOBIN CONC (BEAKER) (test veez=040) 31.9 GM/DL 32.3-36.5 RED CELL DISTRIBUTION WIDTH (BEAKER) (test sdpq=684) 18.3 % 11.6-14.4 PLATELET COUNT (BEAKER) (test jnxo=277) 313 K/CU MM 150-450 MEAN PLATELET VOLUME (BEAKER) (test gjsk=878) 9.3 fL 9.4-12.4 NUCLEATED RED BLOOD CELLS (BEAKER) (test ybkl=026) 0 /100 WBC 0-0 [id number] 01:49:00* Test Item Value Reference Range Comments PARTIAL THROMBOPLASTIN TIME (BEAKER) (test loag=725) 71.1 seconds 22.5-36.0 [id number] 19:24:00* Test Item Value Reference Range Comments PARTIAL THROMBOPLASTIN TIME (BEAKER) (test ycqo=524) 61.0 seconds 22.5-36.0 PROTHROMBIN TIME/[id number] 19:23:00* Test Item Value Reference Range Comments PROTIME (BEAKER) (test tsig=370) 20.8 seconds 11.7-14.7 INR (BEAKER) (test abnt=999) 1.8 <=5.9 RECOMMENDED COUMADIN/WARFARIN INR THERAPY RANGESSTANDARD DOSE: 2.0 - 3.0 Inclu navid: PROPHYLAXIS for venous thrombosis, systemic embolization; TREATMENT for dayna ous thrombosis and/or pulmonary embolus.HIGH RISK: Target INR is 2.5-3.5 for pat ients with mechanical heart valves.[id number] 13:08:00* Test Item Value Reference Range Comments PARTIAL THROMBOPLASTIN TIME (Tigerspike) (test stno=515) 54.1 seconds 22.5-36.0 URINE [id number] 09:04:00* Test Item Value Reference Range Comments CULTURE (Tigerspike) (test mcjx=2742) Amikacin (test code=1) Susceptible 0-16 , Resistant <0 or >16 Aztreonam (test code=32) Susceptible 0-8 , Resistant <0 or >8 Cefepime (test code=51) Susceptible 0-8 , Resistant <0 or >8 Ceftazidime (test code=27) Susceptible 0-8 , Resistant <0 or >8 Ciprofloxacin (test code=7) Susceptible 0-1 , Resistant <0 or >1 Doripenem (test vbto=705) Susceptible 0-2 , Resistant <0 or >2 Gentamicin (test code=18) Susceptible 0-4 , Resistant <0 or >4 Imipenem (test code=19) Susceptible 0-2 , Resistant <0 or >2 Levofloxacin (test code=22) Susceptible 0-2 , Resistant <0 or >2 Meropenem (test code=34) Susceptible 0-2 , Resistant <0 or >2 Piperacillin (test code=24) Susceptible 0-16 , Resistant <0 or >16 Piperacillin + Tazobactam (test code=29) Susceptible 0-16 , Resistant <0 or >16 Tobramycin (test code=25) Susceptible 0-4 , Resistant <0 or >4 CULTURE (Fixit ExpressAKER) (test bsrf=8443) PSEUDOMONAS AERUGINOSA >100,000 col/mL Pseudomonas aeruginosa Amikacin (test code=1) Susceptible 0-16 , Resistant <0 or >16 Aztreonam (test code=32) Susceptible 0-8 , Resistant <0 or >8 Cefepime (test code=51) Susceptible 0-8 , Resistant <0 or >8 Ceftazidime (test code=27) Susceptible 0-8 , Resistant <0 or >8 Ciprofloxacin (test code=7) Susceptible 0-1 , Resistant <0 or >1 Doripenem (test jbks=745) Susceptible 0-2 , Resistant <0 or >2 Gentamicin (test code=18) Susceptible 0-4 , Resistant <0 or >4 Imipenem (test code=19) Susceptible 0-2 , Resistant <0 or >2 Levofloxacin (test code=22) Susceptible 0-2 , Resistant <0 or >2 Meropenem (test code=34) Susceptible 0-2 , Resistant <0 or >2 Piperacillin (test code=24) Susceptible 0-16 , Resistant <0 or >16 Piperacillin + Tazobactam (test code=29) Susceptible 0-16 , Resistant <0 or >16 Tobramycin (test code=25) Susceptible 0-4 , Resistant <0 or >4 CULTURE (BEAKER) (test bnje=8562) >100,000 col/mL Pseudomonas aeruginosaof a second type GRAM STAIN RESULT (BEAKER) (test sgla=7736) <1+ WBCs GRAM STAIN RESULT (BEAKER) (test aoga=417950) 2+ gram variable rods GRAM STAIN RESULT (BEAKER) (test vowv=246877) 1+ gram positive cocci in clusters BASIC METABOLIC [id number] 06:20:00* Test Item Value Reference Range Comments SODIUM (BEAKER) (test fvuf=493) 127 meq/L 136-145 POTASSIUM (BEAKER) (test wnjt=421) 4.3 meq/L 3.5-5.1 CHLORIDE (BEAKER) (test xmmm=222) 96 meq/L 98-107 CO2 (BEAKER) (test tywf=934) 25 meq/L 22-29 BLOOD UREA NITROGEN (BEAKER) (test khbr=034) 52 mg/dL 7-21 CREATININE (BEAKER) (test pjdd=282) 1.14 mg/dL 0.57-1.25 GLUCOSE RANDOM (BEAKER) (test uram=452) 94 mg/dL 70-105 CALCIUM (BEAKER) (test fvir=490) 9.9 mg/dL 8.4-10.2 EGFR (BEAKER) (test eaft=7735) 62 mL/min/1.73 sq m ESTIMATED GFR IS NOT ACCURATE CREATININE CLEARANCE IN PREDICTING GLOMERULAR FILTRATION RATE. ESTIMATED GFR IS NOT APPLICABLE FOR DIALYSIS PATIENTS. [id number] 05:55:00* Test Item Value Reference Range Comments PARTIAL THROMBOPLASTIN TIME (BEAKER) (test cvww=864) 73.0 seconds 22.5-36.0 PROTHROMBIN TIME/[id number] 05:43:00* Test Item Value Reference Range Comments PROTIME (BEAKER) (test qqiq=988) 19.7 seconds 11.7-14.7 INR (BEAKER) (test jhqs=402) 1.7 <=5.9 RECOMMENDED COUMADIN/WARFARIN INR THERAPY RANGESSTANDARD DOSE: 2.0 - 3.0 Inclu navid: PROPHYLAXIS for venous thrombosis, systemic embolization; TREATMENT for dayna ous thrombosis and/or pulmonary embolus.HIGH RISK: Target INR is 2.5-3.5 for pat ients with mechanical heart valves.CBC (HEMOGRAM ONLY)2017-09-21 05:29:00* Test Item Value Reference Range Comments WHITE BLOOD CELL COUNT (BEAKER) (test yhzr=323) 14.3 K/ L 3.5-10.5 RED BLOOD CELL COUNT (BEAKER) (test dvzy=857) 3.02 M/ L 4.63-6.08 HEMOGLOBIN (BEAKER) (test wizh=506) 8.3 GM/DL 13.7-17.5 HEMATOCRIT (BEAKER) (test rktj=793) 26.5 % 40.1-51.0 MEAN CORPUSCULAR VOLUME (BEAKER) (test oxaf=256) 87.7 fL 79.0-92.2 MEAN CORPUSCULAR HEMOGLOBIN (BEAKER) (test ycmd=901) 27.5 pg 25.7-32.2 MEAN CORPUSCULAR HEMOGLOBIN CONC (BEAKER) (test qnsf=158) 31.3 GM/DL 32.3-36.5 RED CELL DISTRIBUTION WIDTH (BEAKER) (test kbgv=695) 18.4 % 11.6-14.4 PLATELET COUNT (BEAKER) (test posv=406) 329 K/CU MM 150-450 MEAN PLATELET VOLUME (BEAKER) (test xrrw=400) 9.5 fL 9.4-12.4 NUCLEATED RED BLOOD CELLS (BEAKER) (test ljsu=907) 0 /100 WBC 0-0 [id number] 22:58:00* Test Item Value Reference Range Comments PARTIAL THROMBOPLASTIN TIME (BEAKER) (test mmyn=058) 61.8 seconds 22.5-36.0 CT, CHEST, WITHOUT [id number] 22:48:00FINAL REPORT EXAMINATION: CT SCAN OF THE ABDOMEN AND PELVIS CLINICAL HISTORY:Brain tumor. Evaluate for metastatic disease. COMPARISON EXAM: 06/08/2017 TECHNIQUE: Axial noncontrast tomographic images were acquired through the chest, abdomen and pelvis. The exam was performed according to our departmental dose optimization program which includes automated exposure control, adjustment of the mA and/or kV according to patient's size and/or use of iterative reconstructive technique. FINDINGS: Chest: The incompletely visualized bilater al humeral shafts have a heterogeneous appearance with ill-defined cortical loree ins. A component may reflect the unusual patient positioning and associated mary fact. However, a pathologic metabolic or neoplastic process cannot be excluded. Characterization of the mediastinal structures is limited by the absence of IV c ontrast. Compared with 06/08/2017, the patient is status post interval placement of a ventricular assist device. A right upper extremity central line, midline st ernotomy and left subclavian AICD are again noted. The heart is enlarged as bef ore. No evidence of a significant pericardial effusion. The esophagus is decompr essed. [place] lymph nodes are noted in the mediastinum, several borderline enlar ged. The lymph nodes are more conspicuous than on the previous examination. The thoracic aorta is normal in caliber. Calcific atherosclerotic changes are noted involving the aorta, great vessels arising off the aorta and the [place] coronary arteries. Coronary artery stent(s) again suspected. Evaluation of the pulmonary arteries is limited by the absence of contrast. A small left pleural effusion is again noted. Previously identified small right pleural effusion has resolved. Opacities are noted in the dependent portion of both lung bases, left greater t [place] right. Morphology and distribution favor atelectasis. Underlying left lower lobe pneumonia or occult mass lesion are difficult to completely exclude. No def inite evidence of pulmonary edema, pneumothorax or pneumomediastinum. Trachea an d central airways are grossly unremarkable. Abdomen and pelvis: Limited noncontr ast images of the liver demonstrate mild diffuse increased attenuation suggestin g mineralization. Sequela from amiodarone therapy would be a consideration given the cardiac enlargement. The gallbladder is absent or decompressed. No evidence of pathologic biliary dilatation. The pancreas is atrophic with fatty infiltrat ion. The spleen is grossly normal in size. No definite evidence of a discrete ad renal mass. The left kidney is associated with asymmetric cortical scarring. No evidence of renal obstruction or nephrolithiasis. The ureters are also decompres sed. Noncontrast images of the bladder are grossly unremarkable. The infrarenal abdominal aorta demonstrates mild focal dilatation measuring 2.5 cm. Extensive c alcific atherosclerotic changes are noted involving the aorta. Calcific atherosc lerotic changes are also noted involving the mesenteric, renal, iliac and visual ized femoral arteries. Further characterization of the vascular structures is li mited by the absence of IV contrast. The stomach is moderately distended with fl uid, gastric contents and gas. The loops of small bowel are relatively normal in caliber. Colonic diverticulosis is noted without definite evidence of divertic ulitis. Retained enteric contrast from a prior study is noted within the bowel, predominantly the colon. Retained enteric contrast is also noted in the appendix . No evidence of appendicitis. Patient is status post a right hip arthroplasty. Associated streak artifact limits further characterization of the adjacent soft tissue structures. Small nonspecific stable sclerotic foci are again noted in th e bony pelvis and sacrum, most conspicuous involving the left ilium. Although [place] are morphologically and statistically favored, a sclerotic metastatic foci are difficult to completely exclude. Diffuse degenerative changes are noted in the lumbar spine, sacroiliac joints and the left hip. IMPRESSION: Unusual appearance of the bilateral humeral shafts as detailed above. Dedicated humeral radiographs, bone scan and/or MRI skeletal survey could be performed for further evaluation. Small stable sclerotic foci involving the bony pelvis and sacrum as detailed above. Mediastinal lymphadenopathy, nonspecific but new/more conspicuo us compared with 06/08/2017. Reactive versus neoplastic. Imaging surveillance rec ommended. Small left pleural effusion, similar to previous. Bilateral dependent lung consolidation as detailed. Interval placement of a ventricular assist devic e. Moderately distended stomach, nonspecific. Colonic diverticulosis without harjit dence of diverticulitis. Signed: Felipe Craven [facility] Verified Date/Time: 09/01 22:48:16 Reading Location: [address] Reading Room Elec tronically signed by: FELIPE CRAVEN M.D. on 09/20/2017 10:[address], ABDOMEN 2017-09-20 22:48:00FINAL REPORT EXAMINATION: CT SCAN OF THE ABDOMEN AND PELVIS CLINICAL HISTORY:Brain tumor. Evaluate for metastatic disease. COMPARISON EXAM: 06/08/2017 TECHNIQUE: Axial noncontrast tomographic images were acquired through the chest, abdomen and pelvis. The exam was performed according to our departmental dose optimization program which includes automated exposure control, adjustment of the mA and/or kV according to patient's size and/or use of iterative reconstructive technique. FINDINGS: Chest: The incompletely visualized bilateral humeral shafts have a heterogeneous appearance with ill-defined cortical margins. A component may reflect the unusual patient positioning and associated artifact. However, a pathologic metabolic or neoplastic process cannot be excluded. Characterization of the mediastinal structures is limited by the absence of IV contrast. Compared with 06/08/2017, the patient is status post interval placement of a ventricular assist device. A right upper extremity central line, midline sternotomy and left subclavian AICD are again noted. The heart is enlarged as before. No evidence of a significant pericardial effusion. The esophagus is decompressed. Shotty lymph nodes are noted in the mediastinum, several borderline enlarged. The lymph nodes are more conspicuous than on the previous examination. The thoracic aorta is normal in caliber. Calcific atherosclerotic changes are noted involving the aorta, great vessels arising off the aorta and the [place] coronary arteries. Coronary artery stent(s) again suspected. Evaluation of the pulmonary arteries is limited by the absence of contrast. A small left pleural effusion is again noted. Previously identified small right pleural effusion has resolved. Opacities are noted in the dependent portion of both lung bases, left greater t mej[place] right. Morphology and distribution favor atelectasis. Underlying left lower lobe pneumonia or occult mass lesion are difficult to completely exclude. No def inite evidence of pulmonary edema, pneumothorax or pneumomediastinum. Trachea an d central airways are grossly unremarkable. Abdomen and pelvis: Limited noncontr ast images of the liver demonstrate mild diffuse increased attenuation suggestin g mineralization. Sequela from amiodarone therapy would be a consideration given the cardiac enlargement. The gallbladder is absent or decompressed. No evidence of pathologic biliary dilatation. The pancreas is atrophic with fatty infiltrat ion. The spleen is grossly normal in size. No definite evidence of a discrete ad renal mass. The left kidney is associated with asymmetric cortical scarring. No evidence of renal obstruction or nephrolithiasis. The ureters are also decompres sed. Noncontrast images of the bladder are grossly unremarkable. The infrarenal abdominal aorta demonstrates mild focal dilatation measuring 2.5 cm. Extensive c alcific atherosclerotic changes are noted involving the aorta. Calcific atherosc lerotic changes are also noted involving the mesenteric, renal, iliac and visual ized femoral arteries. Further characterization of the vascular structures is li mited by the absence of IV contrast. The stomach is moderately distended with fl uid, gastric contents and gas. The loops of small bowel are relatively normal in caliber. Colonic diverticulosis is noted without definite evidence of divertic ulitis. Retained enteric contrast from a prior study is noted within the bowel, predominantly the colon. Retained enteric contrast is also noted in the appendix . No evidence of appendicitis. Patient is status post a right hip arthroplasty. Associated streak artifact limits further characterization of the adjacent soft tissue structures. Small nonspecific stable sclerotic foci are again noted in th e bony pelvis and sacrum, most conspicuous involving the left ilium. Although [place] are morphologically and statistically favored, a sclerotic metastatic foci are difficult to completely exclude. Diffuse degenerative changes are noted in the lumbar spine, sacroiliac joints and the left hip. IMPRESSION: Unusual appearance of the bilateral humeral shafts as detailed above. Dedicated humeral radiographs, bone scan and/or MRI skeletal survey could be performed for further evaluation. Small stable sclerotic foci involving the bony pelvis and sacrum as detailed above. Mediastinal lymphadenopathy, nonspecific but new/more conspicuo us compared with 06/08/2017. Reactive versus neoplastic. Imaging surveillance rec ommended. Small left pleural effusion, similar to previous. Bilateral dependent lung consolidation as detailed. Interval placement of a ventricular assist devic e. Moderately distended stomach, nonspecific. Colonic diverticulosis without harjit dence of diverticulitis. Signed: Felipe Craven MDReport Verified Date/Time: 09/01 22:48:16 Reading Location: [address] Reading Room Elec tronically signed by: FELIPE CRAVEN M.D. on 09/20/2017 10:48 PM [id number] 16:28:00* Test Item Value Reference Range Comments PARTIAL THROMBOPLASTIN TIME (BEAKER) (test aleo=862) 62.4 seconds 22.5-36.0 PROTHROMBIN TIME/[id number] 16:27:00* Test Item Value Reference Range Comments PROTIME (BEAKER) (test mprb=283) 19.1 seconds 11.7-14.7 INR (BEAKER) (test iwzv=560) 1.6 <=5.9 RECOMMENDED COUMADIN/WARFARIN INR THERAPY RANGESSTANDARD DOSE: 2.0 - 3.0 Inclu navid: PROPHYLAXIS for venous thrombosis, systemic embolization; TREATMENT for dayna ous thrombosis and/or pulmonary embolus.HIGH RISK: Target INR is 2.5-3.5 for pat ients with mechanical heart valves.BLOOD [id number] 11:00:00* Test Item Value Reference Range Comments CULTURE (BEAKER) (test pnqf=7365) No growth in 5 days [id number] 10:09:00* Test Item Value Reference Range Comments PARTIAL THROMBOPLASTIN TIME (BEAKER) (test opyf=773) 81.8 seconds 22.5-36.0 PROTHROMBIN TIME/[id number] 10:08:00* Test Item Value Reference Range Comments PROTIME (BEAKER) (test ghol=823) 18.5 seconds 11.7-14.7 INR (BEAKER) (test dpjd=383) 1.5 <=5.9 RECOMMENDED COUMADIN/WARFARIN INR THERAPY RANGESSTANDARD DOSE: 2.0 - 3.0 Inclu navid: PROPHYLAXIS for venous thrombosis, systemic embolization; TREATMENT for dayna ous thrombosis and/or pulmonary embolus.HIGH RISK: Target INR is 2.5-3.5 for pat ients with mechanical heart valves.[id number] 04:06:00* Test Item Value Reference Range Comments PARTIAL THROMBOPLASTIN TIME (BEAKER) (test reqg=230) 63.2 seconds 22.5-36.0 PROTHROMBIN TIME/[id number] 04:03:00* Test Item Value Reference Range Comments PROTIME (BEAKER) (test cihh=313) 17.4 seconds 11.7-14.7 INR (BEAKER) (test fxph=704) 1.4 <=5.9 RECOMMENDED COUMADIN/WARFARIN INR THERAPY RANGESSTANDARD DOSE: 2.0 - 3.0 Inclu navid: PROPHYLAXIS for venous thrombosis, systemic embolization; TREATMENT for dayna ous thrombosis and/or pulmonary embolus.HIGH RISK: Target INR is 2.5-3.5 for pat ients with mechanical heart valves.CBC (HEMOGRAM ONLY)2017-09-20 03:54:00* Test Item Value Reference Range Comments WHITE BLOOD CELL COUNT (BEAKER) (test gkld=656) 15.2 K/ L 3.5-10.5 RED BLOOD CELL COUNT (BEAKER) (test tyfi=731) 3.09 M/ L 4.63-6.08 HEMOGLOBIN (BEAKER) (test wqob=906) 8.6 GM/DL 13.7-17.5 HEMATOCRIT (BEAKER) (test zwyp=027) 26.8 % 40.1-51.0 MEAN CORPUSCULAR VOLUME (BEAKER) (test usgt=056) 86.7 fL 79.0-92.2 MEAN CORPUSCULAR HEMOGLOBIN (BEAKER) (test ysdn=205) 27.8 pg 25.7-32.2 MEAN CORPUSCULAR HEMOGLOBIN CONC (BEAKER) (test ljqe=573) 32.1 GM/DL 32.3-36.5 RED CELL DISTRIBUTION WIDTH (BEAKER) (test hwof=702) 18.2 % 11.6-14.4 PLATELET COUNT (BEAKER) (test dwff=971) 341 K/CU MM 150-450 MEAN PLATELET VOLUME (BEAKER) (test kelc=267) 9.5 fL 9.4-12.4 NUCLEATED RED BLOOD CELLS (BEAKER) (test kljd=684) 0 /100 WBC 0-0 [id number] 21:47:00* Test Item Value Reference Range Comments PARTIAL THROMBOPLASTIN TIME (BEAKER) (test bmfp=257) 53.8 seconds 22.5-36.0 BLOOD [id number] 18:00:00* Test Item Value Reference Range Comments CULTURE (BEAKER) (test mygw=1603) No growth in 5 days [id number] 13:34:00* Test Item Value Reference Range Comments PARTIAL THROMBOPLASTIN TIME (BEAKER) (test locd=835) 65.5 seconds 22.5-36.0 COMPREHENSIVE METABOLIC [id number] 10:08:00* Test Item Value Reference Range Comments TOTAL PROTEIN (BEAKER) (test frbp=328) 7.3 gm/dL 6.0-8.3 ALBUMIN (BEAKER) (test plmo=5639) 3.0 g/dL 3.5-5.0 ALKALINE PHOSPHATASE (BEAKER) (test stzg=038) 138 U/L 40-150 BILIRUBIN TOTAL (BEAKER) (test rztt=017) 0.4 mg/dL 0.2-1.2 SODIUM (BEAKER) (test flos=633) 129 meq/L 136-145 POTASSIUM (BEAKER) (test xgdl=233) 4.1 meq/L 3.5-5.1 CHLORIDE (BEAKER) (test veyz=727) 96 meq/L 98-107 CO2 (BEAKER) (test oxqy=609) 22 meq/L 22-29 BLOOD UREA NITROGEN (BEAKER) (test ojzl=289) 52 mg/dL 7-21 CREATININE (BEAKER) (test qjee=742) 1.13 mg/dL 0.57-1.25 GLUCOSE RANDOM (BEAKER) (test wtad=226) 97 mg/dL 70-105 CALCIUM (BEAKER) (test ambx=713) 9.7 mg/dL 8.4-10.2 AST (SGOT) (BEAKER) (test nvka=966) 22 U/L 5-34 ALT (SGPT) (BEAKER) (test hwqk=550) 16 U/L 6-55 EGFR (BEAKER) (test maxd=8413) 62 mL/min/1.73 sq m ESTIMATED GFR IS NOT ACCURATE CREATININE CLEARANCE IN PREDICTING GLOMERULAR FILTRATION RATE. ESTIMATED GFR IS NOT APPLICABLE FOR DIALYSIS PATIENTS. [id number] 05:39:00* Test Item Value Reference Range Comments PARTIAL THROMBOPLASTIN TIME (BEAKER) (test nwjd=858) 57.5 seconds 22.5-36.0 PROTHROMBIN TIME/[id number] 05:38:00* Test Item Value Reference Range Comments PROTIME (BEAKER) (test zrmg=202) 15.9 seconds 11.7-14.7 INR (BEAKER) (test advr=024) 1.3 <=5.9 RECOMMENDED COUMADIN/WARFARIN INR THERAPY RANGESSTANDARD DOSE: 2.0 - 3.0 Inclu navid: PROPHYLAXIS for venous thrombosis, systemic embolization; TREATMENT for dayna ous thrombosis and/or pulmonary embolus.HIGH RISK: Target INR is 2.5-3.5 for pat ients with mechanical heart valves.CBC W/PLT COUNT & AUTO [id number] 05:25:00* Test Item Value Reference Range Comments WHITE BLOOD CELL COUNT (BEAKER) (test qpvu=886) 15.2 K/ L 3.5-10.5 RED BLOOD CELL COUNT (BEAKER) (test vgml=240) 3.09 M/ L 4.63-6.08 HEMOGLOBIN (BEAKER) (test wxfr=282) 8.6 GM/DL 13.7-17.5 HEMATOCRIT (BEAKER) (test cidk=604) 27.1 % 40.1-51.0 MEAN CORPUSCULAR VOLUME (BEAKER) (test lrqb=461) 87.7 fL 79.0-92.2 MEAN CORPUSCULAR HEMOGLOBIN (BEAKER) (test kicl=262) 27.8 pg 25.7-32.2 MEAN CORPUSCULAR HEMOGLOBIN CONC (BEAKER) (test yuvk=893) 31.7 GM/DL 32.3-36.5 RED CELL DISTRIBUTION WIDTH (BEAKER) (test pfli=680) 18.3 % 11.6-14.4 PLATELET COUNT (BEAKER) (test rdqa=686) 337 K/CU MM 150-450 MEAN PLATELET VOLUME (BEAKER) (test hgqr=988) 9.4 fL 9.4-12.4 NUCLEATED RED BLOOD CELLS (BEAKER) (test wuvp=430) 0 /100 WBC 0-0 NEUTROPHILS RELATIVE PERCENT (BEAKER) (test kbeb=566) 63 % LYMPHOCYTES RELATIVE PERCENT (BEAKER) (test jbfg=949) 17 % MONOCYTES RELATIVE PERCENT (BEAKER) (test hmqe=452) 10 % EOSINOPHILS RELATIVE PERCENT (BEAKER) (test omjl=792) 8 % BASOPHILS RELATIVE PERCENT (BEAKER) (test rtsw=457) 1 % NEUTROPHILS ABSOLUTE COUNT (BEAKER) (test omhe=481) 9.59 K/ L 1.78-5.38 LYMPHOCYTES ABSOLUTE COUNT (BEAKER) (test jkvz=157) 2.59 K/ L 1.32-3.57 MONOCYTES ABSOLUTE COUNT (BEAKER) (test ypgt=970) 1.47 K/ L 0.30-0.82 EOSINOPHILS ABSOLUTE COUNT (BEAKER) (test alnh=998) 1.21 K/ L 0.04-0.54 BASOPHILS ABSOLUTE COUNT (BEAKER) (test avbn=249) 0.14 K/ L 0.01-0.08 IMMATURE GRANULOCYTES-RELATIVE PERCENT (BEAKER) (test spnd=5477) 2 % 0-1 [id number] 23:31:00* Test Item Value Reference Range Comments PARTIAL THROMBOPLASTIN TIME (BEAKER) (test rzju=292) 63.2 seconds 22.5-36.0 URINALYSIS W/ [id number] 19:10:00* Test Item Value Reference Range Comments COLOR (BEAKER) (test pxab=143) Light Yellow CLARITY (BEAKER) (test yaqn=292) Clear SPECIFIC GRAVITY UA (BEAKER) (test qnlo=718) 1.008 1.001-1.035 PH UA (BEAKER) (test ukmi=260) 6.5 5.0-8.0 PROTEIN UA (BEAKER) (test ixna=147) Negative Negative GLUCOSE UA (BEAKER) (test lnab=176) Negative Negative KETONES UA (BEAKER) (test fyll=608) Negative Negative BILIRUBIN UA (BEAKER) (test ufhg=648) Negative Negative BLOOD UA (BEAKER) (test kqjl=458) Negative Negative NITRITE UA (BEAKER) (test znvq=765) Positive Negative LEUKOCYTE ESTERASE UA (BEAKER) (test vcuv=634) Large Negative UROBILINOGEN UA (BEAKER) (test wtjm=898) 0.2 mg/dL 0.2-1.0 RBC UA (BEAKER) (test uvnh=818) 0 /HPF WBC UA (BEAKER) (test stal=153) 10 /HPF BACTERIA (BEAKER) (test ngyq=032) Rare MUCUS (BEAKER) (test ihsn=9189) Rare SQUAMOUS EPITHELIAL (BEAKER) (test tzmz=775) < /HPF SOURCE(BEAKER) (test mgav=9046) Urine, Clean Catch BASIC METABOLIC [id number] 17:04:00* Test Item Value Reference Range Comments SODIUM (BEAKER) (test dlya=658) 131 meq/L 136-145 POTASSIUM (BEAKER) (test jvlu=358) 4.4 meq/L 3.5-5.1 CHLORIDE (BEAKER) (test jecc=647) 97 meq/L 98-107 CO2 (BEAKER) (test kfvg=136) 26 meq/L 22-29 BLOOD UREA NITROGEN (BEAKER) (test vsyk=785) 52 mg/dL 7-21 CREATININE (BEAKER) (test fygm=358) 1.15 mg/dL 0.57-1.25 GLUCOSE RANDOM (BEAKER) (test ljpy=194) 111 mg/dL 70-105 CALCIUM (BEAKER) (test islt=744) 9.4 mg/dL 8.4-10.2 EGFR (BEAKER) (test vwax=1066) 61 mL/min/1.73 sq m ESTIMATED GFR IS NOT ACCURATE CREATININE CLEARANCE IN PREDICTING GLOMERULAR FILTRATION RATE. ESTIMATED GFR IS NOT APPLICABLE FOR DIALYSIS PATIENTS. [id number] 16:03:00* Test Item Value Reference Range Comments PARTIAL THROMBOPLASTIN TIME (BEAKER) (test ipam=670) 69.4 seconds 22.5-36.0 CT, BRAIN, WITHOUT [id number] 12:35:00FINAL REPORT CT head without contrast INDICATION: Headache, recent ICH. TECHNIQUE: Axial noncontrast CT images through the head were obtained. This exam was performed according to our departmental dose optimization program which includes automated exposure control, adjustment of the mA and/or kV according to patient size and/or use of iterative reconstruction technique. COMPARISON: CT head 09/12/2017, 09/09/2017, 09/07/2017 FINDINGS:Left superior frontal and left parieto- occipital hemorrhagic lesions are grossly unchanged, with interval partial resorption of subarachnoid hemorrhage. No new hemorrhage or mass effect is seen. Generalized volume loss and vascular calcifications are noted. Microvascular ischemic changes are similar and chronic appearing. There is no hydrocephalus or midline shift. The visualized sinuses and mastoid air cells are well aerated. There has been cataract surgery. The calvarium is intact. IMPRESSION: Since 09/12/2017, interval partial resorption of subarachnoid hemorrhage. Left frontal and parieto-occipital hemorrhagic lesions are grossly unchanged, without worr isome current mass effect. Signed: Larissa Jackson MDReport Verified Date/T rodriguez: 09/18/2017 12:35:41 Reading Location: [facility] C[facility]V Neuro Reading Room El ectronically signed by: LARISSA JACKSON M.D. on 09/18/2017 12:35 PM [id number] 07:08:00* Test Item Value Reference Range Comments MAGNESIUM (BEAKER) (test qtfk=572) 1.9 mg/dL 1.6-2.6 BASIC METABOLIC [id number] 07:08:00* Test Item Value Reference Range Comments SODIUM (BEAKER) (test pjcc=133) 129 meq/L 136-145 POTASSIUM (BEAKER) (test rpgg=013) 4.1 meq/L 3.5-5.1 CHLORIDE (BEAKER) (test jscx=831) 95 meq/L 98-107 CO2 (BEAKER) (test ujam=551) 26 meq/L 22-29 BLOOD UREA NITROGEN (BEAKER) (test gqtn=643) 56 mg/dL 7-21 CREATININE (BEAKER) (test gafm=788) 1.19 mg/dL 0.57-1.25 GLUCOSE RANDOM (BEAKER) (test kmky=513) 101 mg/dL 70-105 CALCIUM (BEAKER) (test dfgp=512) 9.6 mg/dL 8.4-10.2 EGFR (BEAKER) (test fciw=0580) 59 mL/min/1.73 sq m ESTIMATED GFR IS NOT ACCURATE CREATININE CLEARANCE IN PREDICTING GLOMERULAR FILTRATION RATE. ESTIMATED GFR IS NOT APPLICABLE FOR DIALYSIS PATIENTS. LACTATE DEHYDROGENASE (LDH)2017-09-18 07:08:00* Test Item Value Reference Range Comments LACTATE DEHYDROGENASE (BEAKER) (test tzsu=560) 188 U/L 125-220 CBC W/PLT COUNT & AUTO [id number] 05:59:00* Test Item Value Reference Range Comments WHITE BLOOD CELL COUNT (BEAKER) (test wufp=074) 15.8 K/ L 3.5-10.5 RED BLOOD CELL COUNT (BEAKER) (test mywf=294) 3.14 M/ L 4.63-6.08 HEMOGLOBIN (BEAKER) (test aeks=796) 8.6 GM/DL 13.7-17.5 HEMATOCRIT (BEAKER) (test fbky=376) 27.3 % 40.1-51.0 MEAN CORPUSCULAR VOLUME (BEAKER) (test lqfj=596) 86.9 fL 79.0-92.2 MEAN CORPUSCULAR HEMOGLOBIN (BEAKER) (test ylai=076) 27.4 pg 25.7-32.2 MEAN CORPUSCULAR HEMOGLOBIN CONC (BEAKER) (test swgm=415) 31.5 GM/DL 32.3-36.5 RED CELL DISTRIBUTION WIDTH (BEAKER) (test lqhh=972) 18.2 % 11.6-14.4 PLATELET COUNT (BEAKER) (test lszz=879) 360 K/CU MM 150-450 MEAN PLATELET VOLUME (BEAKER) (test nspi=374) 9.6 fL 9.4-12.4 NUCLEATED RED BLOOD CELLS (BEAKER) (test ngsi=929) 0 /100 WBC 0-0 NEUTROPHILS RELATIVE PERCENT (BEAKER) (test hmsc=130) 65 % LYMPHOCYTES RELATIVE PERCENT (BEAKER) (test ushr=204) 15 % MONOCYTES RELATIVE PERCENT (BEAKER) (test yqxc=856) 12 % EOSINOPHILS RELATIVE PERCENT (BEAKER) (test dujy=454) 6 % BASOPHILS RELATIVE PERCENT (BEAKER) (test nlxu=838) 1 % NEUTROPHILS ABSOLUTE COUNT (BEAKER) (test pich=340) 10.30 K/ L 1.78-5.38 LYMPHOCYTES ABSOLUTE COUNT (BEAKER) (test ktbc=190) 2.30 K/ L 1.32-3.57 MONOCYTES ABSOLUTE COUNT (BEAKER) (test lqlv=234) 1.83 K/ L 0.30-0.82 EOSINOPHILS ABSOLUTE COUNT (BEAKER) (test jaah=898) 1.01 K/ L 0.04-0.54 BASOPHILS ABSOLUTE COUNT (BEAKER) (test qghs=076) 0.16 K/ L 0.01-0.08 IMMATURE GRANULOCYTES-RELATIVE PERCENT (BEAKER) (test bwpu=1565) 1 % 0-1 PROTHROMBIN TIME/[id number] 05:55:00* Test Item Value Reference Range Comments PROTIME (BEAKER) (test cufy=753) 16.2 seconds 11.7-14.7 INR (BEAKER) (test xcvz=260) 1.3 <=5.9 RECOMMENDED COUMADIN/WARFARIN INR THERAPY RANGESSTANDARD DOSE: 2.0 - 3.0 Inclu navid: PROPHYLAXIS for venous thrombosis, systemic embolization; TREATMENT for dayna ous thrombosis and/or pulmonary embolus.HIGH RISK: Target INR is 2.5-3.5 for pat ients with mechanical heart valves.[id number] 05:55:00* Test Item Value Reference Range Comments PARTIAL THROMBOPLASTIN TIME (BEAKER) (test xgvh=449) 76.7 seconds 22.5-36.0 [id number] 21:57:00* Test Item Value Reference Range Comments PARTIAL THROMBOPLASTIN TIME (BEAKER) (test eill=641) 61.5 seconds 22.5-36.0 [id number] 14:50:00* Test Item Value Reference Range Comments PARTIAL THROMBOPLASTIN TIME (BEAKER) (test qdzh=690) 60.3 seconds 22.5-36.0 [id number] 07:34:00* Test Item Value Reference Range Comments MAGNESIUM (BEAKER) (test trht=062) 2.2 mg/dL 1.6-2.6 BASIC METABOLIC [id number] 07:34:00* Test Item Value Reference Range Comments SODIUM (BEAKER) (test bizx=492) 133 meq/L 136-145 POTASSIUM (BEAKER) (test ogyi=132) 4.5 meq/L 3.5-5.1 CHLORIDE (BEAKER) (test rgjp=660) 96 meq/L 98-107 CO2 (BEAKER) (test dhgy=354) 27 meq/L 22-29 BLOOD UREA NITROGEN (BEAKER) (test aslc=442) 53 mg/dL 7-21 CREATININE (BEAKER) (test kbcz=749) 1.20 mg/dL 0.57-1.25 GLUCOSE RANDOM (BEAKER) (test rjjr=553) 84 mg/dL 70-105 CALCIUM (BEAKER) (test ivtm=381) 10.0 mg/dL 8.4-10.2 EGFR (BEAKER) (test tnoa=2085) 58 mL/min/1.73 sq m ESTIMATED GFR IS NOT ACCURATE CREATININE CLEARANCE IN PREDICTING GLOMERULAR FILTRATION RATE. ESTIMATED GFR IS NOT APPLICABLE FOR DIALYSIS PATIENTS. LACTATE DEHYDROGENASE (LDH)2017-09-17 07:34:00* Test Item Value Reference Range Comments LACTATE DEHYDROGENASE (BEAKER) (test ccqs=988) 252 U/L 125-220 [id number] 07:33:00* Test Item Value Reference Range Comments PARTIAL THROMBOPLASTIN TIME (BEAKER) (test jetn=839) 47.4 seconds 22.5-36.0 PROTHROMBIN TIME/[id number] 07:32:00* Test Item Value Reference Range Comments PROTIME (BEAKER) (test jmjo=320) 14.3 seconds 11.7-14.7 INR (BEAKER) (test flti=166) 1.1 <=5.9 RECOMMENDED COUMADIN/WARFARIN INR THERAPY RANGESSTANDARD DOSE: 2.0 - 3.0 Inclu navid: PROPHYLAXIS for venous thrombosis, systemic embolization; TREATMENT for dayna ous thrombosis and/or pulmonary embolus.HIGH RISK: Target INR is 2.5-3.5 for pat ients with mechanical heart valves.CBC W/PLT COUNT & AUTO [id number] 07:23:00* Test Item Value Reference Range Comments WHITE BLOOD CELL COUNT (BEAKER) (test qabi=108) 14.9 K/ L 3.5-10.5 RED BLOOD CELL COUNT (BEAKER) (test dczz=965) 3.18 M/ L 4.63-6.08 HEMOGLOBIN (BEAKER) (test szgz=895) 8.7 GM/DL 13.7-17.5 HEMATOCRIT (BEAKER) (test dgsj=450) 27.6 % 40.1-51.0 MEAN CORPUSCULAR VOLUME (BEAKER) (test pwpz=924) 86.8 fL 79.0-92.2 MEAN CORPUSCULAR HEMOGLOBIN (BEAKER) (test vjoi=715) 27.4 pg 25.7-32.2 MEAN CORPUSCULAR HEMOGLOBIN CONC (BEAKER) (test woxu=164) 31.5 GM/DL 32.3-36.5 RED CELL DISTRIBUTION WIDTH (BEAKER) (test jfbo=056) 18.3 % 11.6-14.4 PLATELET COUNT (BEAKER) (test oniy=128) 371 K/CU MM 150-450 MEAN PLATELET VOLUME (BEAKER) (test botg=442) 9.4 fL 9.4-12.4 NUCLEATED RED BLOOD CELLS (BEAKER) (test clix=880) 0 /100 WBC 0-0 NEUTROPHILS RELATIVE PERCENT (BEAKER) (test mzjz=640) 64 % LYMPHOCYTES RELATIVE PERCENT (BEAKER) (test sfhi=712) 19 % MONOCYTES RELATIVE PERCENT (BEAKER) (test ksnk=465) 9 % EOSINOPHILS RELATIVE PERCENT (BEAKER) (test zfxw=392) 6 % BASOPHILS RELATIVE PERCENT (BEAKER) (test nhus=834) 1 % NEUTROPHILS ABSOLUTE COUNT (BEAKER) (test tdjh=016) 9.55 K/ L 1.78-5.38 LYMPHOCYTES ABSOLUTE COUNT (BEAKER) (test zobr=165) 2.86 K/ L 1.32-3.57 MONOCYTES ABSOLUTE COUNT (BEAKER) (test iuxt=270) 1.32 K/ L 0.30-0.82 EOSINOPHILS ABSOLUTE COUNT (BEAKER) (test jwrv=908) 0.91 K/ L 0.04-0.54 BASOPHILS ABSOLUTE COUNT (BEAKER) (test ifkv=145) 0.14 K/ L 0.01-0.08 IMMATURE GRANULOCYTES-RELATIVE PERCENT (BEAKER) (test gsww=2301) 1 % 0-1 [id number] 23:54:00* Test Item Value Reference Range Comments PARTIAL THROMBOPLASTIN TIME (BEAKER) (test dtzd=366) 47.1 seconds 22.5-36.0 PT/[id number] 16:04:00* Test Item Value Reference Range Comments PROTIME (BEAKER) (test oane=104) 15.0 seconds 11.7-14.7 INR (BEAKER) (test fjtq=774) 1.2 <=5.9 PARTIAL THROMBOPLASTIN TIME (BEAKER) (test vctc=628) 80.0 seconds 22.5-36.0 RECOMMENDED COUMADIN/WARFARIN INR THERAPY RANGESSTANDARD DOSE: 2.0 - 3.0 Inclu navid: PROPHYLAXIS for venous thrombosis, systemic embolization; TREATMENT for dayna ous thrombosis and/or pulmonary embolus.HIGH RISK: Target INR is 2.5-3.5 for pat ients with mechanical heart valves.[id number] 06:38:00* Test Item Value Reference Range Comments MAGNESIUM (BEAKER) (test ddfn=211) 1.8 mg/dL 1.6-2.6 BASIC METABOLIC [id number] 06:38:00* Test Item Value Reference Range Comments SODIUM (BEAKER) (test hgaa=127) 132 meq/L 136-145 POTASSIUM (BEAKER) (test zgrn=477) 4.2 meq/L 3.5-5.1 CHLORIDE (BEAKER) (test mvvm=259) 95 meq/L 98-107 CO2 (BEAKER) (test ayqn=186) 28 meq/L 22-29 BLOOD UREA NITROGEN (BEAKER) (test ragn=182) 52 mg/dL 7-21 CREATININE (BEAKER) (test pdug=262) 1.17 mg/dL 0.57-1.25 GLUCOSE RANDOM (BEAKER) (test xvcw=112) 89 mg/dL 70-105 CALCIUM (BEAKER) (test xfjt=137) 9.5 mg/dL 8.4-10.2 EGFR (BEAKER) (test qhqw=9280) 60 mL/min/1.73 sq m ESTIMATED GFR IS NOT ACCURATE CREATININE CLEARANCE IN PREDICTING GLOMERULAR FILTRATION RATE. ESTIMATED GFR IS NOT APPLICABLE FOR DIALYSIS PATIENTS. LACTATE DEHYDROGENASE (LDH)2017-09-16 06:38:00* Test Item Value Reference Range Comments LACTATE DEHYDROGENASE (BEAKER) (test adni=206) 217 U/L 125-220 [id number] 06:14:00* Test Item Value Reference Range Comments PARTIAL THROMBOPLASTIN TIME (BEAKER) (test egrv=769) 110.8 seconds 22.5-36.0 Prior to initiating heparinPROTHROMBIN TIME/[id number] 06:10:00* Test Item Value Reference Range Comments PROTIME (BEAKER) (test doxo=852) 15.3 seconds 11.7-14.7 INR (BEAKER) (test kmwd=008) 1.2 <=5.9 RECOMMENDED COUMADIN/WARFARIN INR THERAPY RANGESSTANDARD DOSE: 2.0 - 3.0 Inclu navid: PROPHYLAXIS for venous thrombosis, systemic embolization; TREATMENT for dayna ous thrombosis and/or pulmonary embolus.HIGH RISK: Target INR is 2.5-3.5 for pat ients with mechanical heart valves.Prior to initiating heparinCBC W/PLT COUNT & AUTO [id number] 06:07:00* Test Item Value Reference Range Comments WHITE BLOOD CELL COUNT (BEAKER) (test ilqj=406) 15.7 K/ L 3.5-10.5 RED BLOOD CELL COUNT (BEAKER) (test cypp=728) 3.09 M/ L 4.63-6.08 HEMOGLOBIN (BEAKER) (test svkf=696) 8.6 GM/DL 13.7-17.5 HEMATOCRIT (BEAKER) (test sjxl=761) 27.1 % 40.1-51.0 MEAN CORPUSCULAR VOLUME (BEAKER) (test hczz=836) 87.7 fL 79.0-92.2 MEAN CORPUSCULAR HEMOGLOBIN (BEAKER) (test emid=123) 27.8 pg 25.7-32.2 MEAN CORPUSCULAR HEMOGLOBIN CONC (BEAKER) (test hnxn=592) 31.7 GM/DL 32.3-36.5 RED CELL DISTRIBUTION WIDTH (BEAKER) (test uaqe=717) 18.4 % 11.6-14.4 PLATELET COUNT (BEAKER) (test oldw=447) 361 K/CU MM 150-450 MEAN PLATELET VOLUME (BEAKER) (test vqce=340) 9.4 fL 9.4-12.4 NUCLEATED RED BLOOD CELLS (BEAKER) (test odve=802) 0 /100 WBC 0-0 NEUTROPHILS RELATIVE PERCENT (BEAKER) (test cogq=567) 64 % LYMPHOCYTES RELATIVE PERCENT (BEAKER) (test rjhv=797) 19 % MONOCYTES RELATIVE PERCENT (BEAKER) (test zntf=162) 9 % EOSINOPHILS RELATIVE PERCENT (BEAKER) (test vqbi=411) 6 % BASOPHILS RELATIVE PERCENT (BEAKER) (test vopl=692) 1 % NEUTROPHILS ABSOLUTE COUNT (BEAKER) (test hbrq=035) 10.02 K/ L 1.78-5.38 LYMPHOCYTES ABSOLUTE COUNT (BEAKER) (test mbpr=701) 2.97 K/ L 1.32-3.57 MONOCYTES ABSOLUTE COUNT (BEAKER) (test jkff=678) 1.46 K/ L 0.30-0.82 EOSINOPHILS ABSOLUTE COUNT (BEAKER) (test jurn=519) 0.88 K/ L 0.04-0.54 BASOPHILS ABSOLUTE COUNT (BEAKER) (test sbic=133) 0.14 K/ L 0.01-0.08 IMMATURE GRANULOCYTES-RELATIVE PERCENT (BEAKER) (test pwcq=6665) 1 % 0-1 [id number] 21:31:00* Test Item Value Reference Range Comments PARTIAL THROMBOPLASTIN TIME (BEAKER) (test fpau=212) 73.3 seconds 22.5-36.0 [id number] 12:58:00* Test Item Value Reference Range Comments PARTIAL THROMBOPLASTIN TIME (BEAKER) (test fjgm=338) 72.1 seconds 22.5-36.0 [id number] 11:38:00* Test Item Value Reference Range Comments MAGNESIUM (BEAKER) (test bkiy=921) 1.8 mg/dL 1.6-2.6 BASIC METABOLIC [id number] 11:38:00* Test Item Value Reference Range Comments SODIUM (BEAKER) (test hkrv=006) 134 meq/L 136-145 POTASSIUM (BEAKER) (test aaft=765) 4.2 meq/L 3.5-5.1 CHLORIDE (BEAKER) (test hmgi=633) 98 meq/L 98-107 CO2 (BEAKER) (test isna=866) 26 meq/L 22-29 BLOOD UREA NITROGEN (BEAKER) (test xhbs=072) 50 mg/dL 7-21 CREATININE (BEAKER) (test kbwx=348) 1.19 mg/dL 0.57-1.25 GLUCOSE RANDOM (BEAKER) (test rkni=389) 93 mg/dL 70-105 CALCIUM (BEAKER) (test ewow=184) 9.5 mg/dL 8.4-10.2 EGFR (BEAKER) (test phpb=4890) 59 mL/min/1.73 sq m ESTIMATED GFR IS NOT ACCURATE CREATININE CLEARANCE IN PREDICTING GLOMERULAR FILTRATION RATE. ESTIMATED GFR IS NOT APPLICABLE FOR DIALYSIS PATIENTS. LACTATE DEHYDROGENASE (LDH)2017-09-15 11:38:00* Test Item Value Reference Range Comments LACTATE DEHYDROGENASE (BEAKER) (test kutk=757) 250 U/L 125-220 RAD, CHEST, 1 VIEW, NON [id number] 10:40:00Reason for exam:->shortness of breathShould this be performed at the bedside?->YesFINAL REPORT Chest one view INDICATION: Shortness of breath COMPARISON: 09/11/2017 IMPRESSION: Median sternotomy changes, ICD, and LVAD, and right PICC line are noted. The cardiac silhouette is enlarged. Left retrocardiac consolidation or atelectasis is stable with adjacent pleural effusion. Trace right pleural effusion may be present. No pneumothorax is seen. Gaseous bowel distention in the imaged abdomen is again noted. Signed: Larissa Jackson MDReport Verified Date/Time: 09/15/2017 10:40:36 Reading Location: [facility] Reading Room Electronically signed by: LARISSA JACKSON M.D. on 0 09/15/2017 10:40 AM URINALYSIS W/ REFLEX URINE [id number] 07:19:00* Test Item Value Reference Range Comments COLOR (BEAKER) (test rewc=533) Light Yellow CLARITY (BEAKER) (test oxgy=872) Clear SPECIFIC GRAVITY UA (BEAKER) (test ymza=624) 1.008 1.001-1.035 PH UA (BEAKER) (test ncxm=816) 6.5 5.0-8.0 PROTEIN UA (BEAKER) (test gklp=846) Negative Negative GLUCOSE UA (BEAKER) (test kgvw=170) Negative Negative KETONES UA (BEAKER) (test zqij=420) Negative Negative BILIRUBIN UA (BEAKER) (test qbup=138) Negative Negative BLOOD UA (BEAKER) (test xrsk=835) Negative Negative NITRITE UA (BEAKER) (test sudp=715) Positive Negative LEUKOCYTE ESTERASE UA (BEAKER) (test nlcf=130) Large Negative UROBILINOGEN UA (BEAKER) (test osep=525) 0.2 mg/dL 0.2-1.0 RBC UA (BEAKER) (test feue=307) 0 /HPF WBC UA (BEAKER) (test pdyn=585) 13 /HPF BACTERIA (BEAKER) (test uejn=715) Moderate SOURCE(BEAKER) (test wdby=2332) [id number] 06:11:00* Test Item Value Reference Range Comments PARTIAL THROMBOPLASTIN TIME (BEAKER) (test fobk=261) 81.2 seconds 22.5-36.0 PROTHROMBIN [id number] 06:09:00* Test Item Value Reference Range Comments PROTIME (BEAKER) (test fcpd=661) 14.7 seconds 11.7-14.7 INR (BEAKER) (test jeyc=080) 1.2 <=5.9 RECOMMENDED COUMADIN/WARFARIN INR THERAPY RANGESSTANDARD DOSE: 2.0 - 3.0 Inclu navid: PROPHYLAXIS for venous thrombosis, systemic embolization; TREATMENT for dayna ous thrombosis and/or pulmonary embolus.HIGH RISK: Target INR is 2.5-3.5 for pat ients with mechanical heart valves.CBC W/PLT COUNT & AUTO [id number] 06:07:00* Test Item Value Reference Range Comments WHITE BLOOD CELL COUNT (BEAKER) (test pabw=977) 16.8 K/ L 3.5-10.5 RED BLOOD CELL COUNT (BEAKER) (test yttn=920) 3.07 M/ L 4.63-6.08 HEMOGLOBIN (BEAKER) (test tbjm=193) 8.6 GM/DL 13.7-17.5 HEMATOCRIT (BEAKER) (test mgip=979) 27.0 % 40.1-51.0 MEAN CORPUSCULAR VOLUME (BEAKER) (test yixx=058) 87.9 fL 79.0-92.2 MEAN CORPUSCULAR HEMOGLOBIN (BEAKER) (test hxai=948) 28.0 pg 25.7-32.2 MEAN CORPUSCULAR HEMOGLOBIN CONC (BEAKER) (test mvgr=939) 31.9 GM/DL 32.3-36.5 RED CELL DISTRIBUTION WIDTH (BEAKER) (test iyrr=305) 18.4 % 11.6-14.4 PLATELET COUNT (BEAKER) (test sfhl=857) 356 K/CU MM 150-450 MEAN PLATELET VOLUME (BEAKER) (test yarw=346) 9.4 fL 9.4-12.4 NUCLEATED RED BLOOD CELLS (BEAKER) (test nlyz=451) 0 /100 WBC 0-0 NEUTROPHILS RELATIVE PERCENT (BEAKER) (test goyy=312) 67 % LYMPHOCYTES RELATIVE PERCENT (BEAKER) (test kvzn=612) 17 % MONOCYTES RELATIVE PERCENT (BEAKER) (test voiw=065) 10 % EOSINOPHILS RELATIVE PERCENT (BEAKER) (test ctvl=694) 4 % BASOPHILS RELATIVE PERCENT (BEAKER) (test csit=035) 1 % NEUTROPHILS ABSOLUTE COUNT (BEAKER) (test ljcf=577) 11.28 K/ L 1.78-5.38 LYMPHOCYTES ABSOLUTE COUNT (BEAKER) (test omyc=659) 2.77 K/ L 1.32-3.57 MONOCYTES ABSOLUTE COUNT (BEAKER) (test ggaw=017) 1.62 K/ L 0.30-0.82 EOSINOPHILS ABSOLUTE COUNT (BEAKER) (test ahxp=840) 0.74 K/ L 0.04-0.54 BASOPHILS ABSOLUTE COUNT (BEAKER) (test ibok=973) 0.14 K/ L 0.01-0.08 IMMATURE GRANULOCYTES-RELATIVE PERCENT (BEAKER) (test oiju=8426) 1 % 0-1 [id number] 23:06:00* Test Item Value Reference Range Comments PARTIAL THROMBOPLASTIN TIME (BEAKER) (test txhk=403) 88.2 seconds 22.5-36.0 PT/[id number] 16:23:00* Test Item Value Reference Range Comments PROTIME (BEAKER) (test udvu=772) 16.3 seconds 11.7-14.7 INR (BEAKER) (test mjso=384) 1.3 <=5.9 PARTIAL THROMBOPLASTIN TIME (BEAKER) (test dluh=741) 35.5 seconds 22.5-36.0 RECOMMENDED COUMADIN/WARFARIN INR THERAPY RANGESSTANDARD DOSE: 2.0 - 3.0 Inclu navid: PROPHYLAXIS for venous thrombosis, systemic embolization; TREATMENT for dayna ous thrombosis and/or pulmonary embolus.HIGH RISK: Target INR is 2.5-3.5 for pat ients with mechanical heart valves.[id number] 11:30:00* Test Item Value Reference Range Comments PARTIAL THROMBOPLASTIN TIME (BEAKER) (test kwqf=623) 108.2 seconds 22.5-36.0 [id number] 05:49:00* Test Item Value Reference Range Comments MAGNESIUM (BEAKER) (test dbod=759) 1.8 mg/dL 1.6-2.6 BASIC METABOLIC [id number] 05:49:00* Test Item Value Reference Range Comments SODIUM (BEAKER) (test wwvv=721) 132 meq/L 136-145 POTASSIUM (BEAKER) (test shsk=449) 4.1 meq/L 3.5-5.1 CHLORIDE (BEAKER) (test spag=941) 97 meq/L 98-107 CO2 (BEAKER) (test tjkb=472) 25 meq/L 22-29 BLOOD UREA NITROGEN (BEAKER) (test rayo=178) 51 mg/dL 7-21 CREATININE (BEAKER) (test nakw=702) 1.06 mg/dL 0.57-1.25 GLUCOSE RANDOM (BEAKER) (test zion=117) 93 mg/dL 70-105 CALCIUM (BEAKER) (test qvdq=699) 9.2 mg/dL 8.4-10.2 EGFR (BEAKER) (test blyb=0158) 67 mL/min/1.73 sq m ESTIMATED GFR IS NOT ACCURATE CREATININE CLEARANCE IN PREDICTING GLOMERULAR FILTRATION RATE. ESTIMATED GFR IS NOT APPLICABLE FOR DIALYSIS PATIENTS. LACTATE DEHYDROGENASE (LDH)2017-09-14 05:49:00* Test Item Value Reference Range Comments LACTATE DEHYDROGENASE (BEAKER) (test hkca=379) 265 U/L 125-220 CALCIUM, [id number] 05:38:00* Test Item Value Reference Range Comments CALCIUM IONIZED (BEAKER) (test sgry=893) 1.05 mmol/L 1.12-1.27 PH, BLOOD (BEAKER) (test orsh=1438) 7.48 CBC W/PLT COUNT & AUTO [id number] 05:22:00* Test Item Value Reference Range Comments WHITE BLOOD CELL COUNT (BEAKER) (test ffnd=165) 17.2 K/ L 3.5-10.5 RED BLOOD CELL COUNT (BEAKER) (test aqtc=473) 3.21 M/ L 4.63-6.08 HEMOGLOBIN (BEAKER) (test ajub=144) 8.9 GM/DL 13.7-17.5 HEMATOCRIT (BEAKER) (test usxj=743) 28.1 % 40.1-51.0 MEAN CORPUSCULAR VOLUME (BEAKER) (test ngnu=622) 87.5 fL 79.0-92.2 MEAN CORPUSCULAR HEMOGLOBIN (BEAKER) (test upfp=678) 27.7 pg 25.7-32.2 MEAN CORPUSCULAR HEMOGLOBIN CONC (BEAKER) (test dyfz=893) 31.7 GM/DL 32.3-36.5 RED CELL DISTRIBUTION WIDTH (BEAKER) (test jwve=374) 18.3 % 11.6-14.4 PLATELET COUNT (BEAKER) (test qtwy=529) 355 K/CU MM 150-450 MEAN PLATELET VOLUME (BEAKER) (test rbhz=974) 9.4 fL 9.4-12.4 NUCLEATED RED BLOOD CELLS (BEAKER) (test dvuk=130) 0 /100 WBC 0-0 NEUTROPHILS RELATIVE PERCENT (BEAKER) (test bhrw=897) 68 % LYMPHOCYTES RELATIVE PERCENT (BEAKER) (test pkbz=726) 15 % MONOCYTES RELATIVE PERCENT (BEAKER) (test lpkm=107) 10 % EOSINOPHILS RELATIVE PERCENT (BEAKER) (test zgyf=989) 5 % BASOPHILS RELATIVE PERCENT (BEAKER) (test bzmo=125) 1 % NEUTROPHILS ABSOLUTE COUNT (BEAKER) (test avqt=262) 11.64 K/ L 1.78-5.38 LYMPHOCYTES ABSOLUTE COUNT (BEAKER) (test ipfg=652) 2.64 K/ L 1.32-3.57 MONOCYTES ABSOLUTE COUNT (BEAKER) (test bhwr=048) 1.66 K/ L 0.30-0.82 EOSINOPHILS ABSOLUTE COUNT (BEAKER) (test iicp=873) 0.90 K/ L 0.04-0.54 BASOPHILS ABSOLUTE COUNT (BEAKER) (test guji=351) 0.13 K/ L 0.01-0.08 IMMATURE GRANULOCYTES-RELATIVE PERCENT (BEAKER) (test qfvf=3193) 1 % 0-1 CBC (HEMOGRAM ONLY)2017-09-14 05:15:00* Test Item Value Reference Range Comments WHITE BLOOD CELL COUNT (BEAKER) (test ftsx=587) 17.2 K/ L 3.5-10.5 RED BLOOD CELL COUNT (BEAKER) (test rbyb=591) 3.21 M/ L 4.63-6.08 HEMOGLOBIN (BEAKER) (test zmnu=919) 8.9 GM/DL 13.7-17.5 HEMATOCRIT (BEAKER) (test dnxy=376) 28.1 % 40.1-51.0 MEAN CORPUSCULAR VOLUME (BEAKER) (test khbe=670) 87.5 fL 79.0-92.2 MEAN CORPUSCULAR HEMOGLOBIN (BEAKER) (test tjgv=557) 27.7 pg 25.7-32.2 MEAN CORPUSCULAR HEMOGLOBIN CONC (BEAKER) (test llyy=827) 31.7 GM/DL 32.3-36.5 RED CELL DISTRIBUTION WIDTH (BEAKER) (test qvat=385) 18.3 % 11.6-14.4 PLATELET COUNT (BEAKER) (test xhla=048) 355 K/CU MM 150-450 MEAN PLATELET VOLUME (BEAKER) (test tate=118) 9.4 fL 9.4-12.4 NUCLEATED RED BLOOD CELLS (BEAKER) (test aplo=803) 0 /100 WBC 0-0 PT/[id number] 04:55:00* Test Item Value Reference Range Comments PROTIME (BEAKER) (test ocqk=906) 14.5 seconds 11.7-14.7 INR (BEAKER) (test arza=254) 1.1 <=5.9 PARTIAL THROMBOPLASTIN TIME (BEAKER) (test vuql=790) 69.6 seconds 22.5-36.0 RECOMMENDED COUMADIN/WARFARIN INR THERAPY RANGESSTANDARD DOSE: 2.0 - 3.0 Inclu navid: PROPHYLAXIS for venous thrombosis, systemic embolization; TREATMENT for dayna ous thrombosis and/or pulmonary embolus.HIGH RISK: Target INR is 2.5-3.5 for pat ients with mechanical heart valves.PROTHROMBIN TIME/[id number] 04:53:00* Test Item Value Reference Range Comments PROTIME (BEAKER) (test azrs=389) 14.5 seconds 11.7-14.7 INR (BEAKER) (test siwt=433) 1.1 <=5.9 RECOMMENDED COUMADIN/WARFARIN INR THERAPY RANGESSTANDARD DOSE: 2.0 - 3.0 Inclu navid: PROPHYLAXIS for venous thrombosis, systemic embolization; TREATMENT for dayna ous thrombosis and/or pulmonary embolus.HIGH RISK: Target INR is 2.5-3.5 for pat ients with mechanical heart valves.[id number] 02:58:00* Test Item Value Reference Range Comments MAGNESIUM (BEAKER) (test iapk=452) 1.9 mg/dL 1.6-2.6 BASIC METABOLIC [id number] 02:58:00* Test Item Value Reference Range Comments SODIUM (BEAKER) (test vwgf=427) 133 meq/L 136-145 POTASSIUM (BEAKER) (test ulcd=099) 4.1 meq/L 3.5-5.1 CHLORIDE (BEAKER) (test obay=560) 96 meq/L 98-107 CO2 (BEAKER) (test wbtv=505) 27 meq/L 22-29 BLOOD UREA NITROGEN (BEAKER) (test zqro=192) 52 mg/dL 7-21 CREATININE (BEAKER) (test zjyn=355) 1.07 mg/dL 0.57-1.25 GLUCOSE RANDOM (BEAKER) (test rsde=966) 111 mg/dL 70-105 CALCIUM (BEAKER) (test mohy=179) 9.2 mg/dL 8.4-10.2 EGFR (BEAKER) (test zobr=3989) 66 mL/min/1.73 sq m ESTIMATED GFR IS NOT ACCURATE CREATININE CLEARANCE IN PREDICTING GLOMERULAR FILTRATION RATE. ESTIMATED GFR IS NOT APPLICABLE FOR DIALYSIS PATIENTS. LACTATE DEHYDROGENASE (LDH)2017-09-13 02:58:00* Test Item Value Reference Range Comments LACTATE DEHYDROGENASE (BEAKER) (test osuy=623) 221 U/L 125-220 PT/[id number] 02:56:00* Test Item Value Reference Range Comments PROTIME (BEAKER) (test cdgs=486) 14.4 seconds 11.7-14.7 INR (BEAKER) (test dttx=605) 1.1 <=5.9 PARTIAL THROMBOPLASTIN TIME (BEAKER) (test tfwe=238) 58.6 seconds 22.5-36.0 RECOMMENDED COUMADIN/WARFARIN INR THERAPY RANGESSTANDARD DOSE: 2.0 - 3.0 Inclu navid: PROPHYLAXIS for venous thrombosis, systemic embolization; TREATMENT for dayna ous thrombosis and/or pulmonary embolus.HIGH RISK: Target INR is 2.5-3.5 for pat ients with mechanical heart valves.PROTHROMBIN TIME/[id number] 02:55:00* Test Item Value Reference Range Comments PROTIME (BEAKER) (test qfwd=310) 14.4 seconds 11.7-14.7 INR (BEAKER) (test gebc=250) 1.1 <=5.9 RECOMMENDED COUMADIN/WARFARIN INR THERAPY RANGESSTANDARD DOSE: 2.0 - 3.0 Inclu navid: PROPHYLAXIS for venous thrombosis, systemic embolization; TREATMENT for dayna ous thrombosis and/or pulmonary embolus.HIGH RISK: Target INR is 2.5-3.5 for pat ients with mechanical heart valves.CBC W/PLT COUNT & AUTO [id number] 02:51:00* Test Item Value Reference Range Comments WHITE BLOOD CELL COUNT (BEAKER) (test pypz=515) 16.1 K/ L 3.5-10.5 RED BLOOD CELL COUNT (BEAKER) (test asvo=936) 3.32 M/ L 4.63-6.08 HEMOGLOBIN (BEAKER) (test tpsn=156) 9.1 GM/DL 13.7-17.5 HEMATOCRIT (BEAKER) (test psxu=722) 28.8 % 40.1-51.0 MEAN CORPUSCULAR VOLUME (BEAKER) (test lzen=646) 86.7 fL 79.0-92.2 MEAN CORPUSCULAR HEMOGLOBIN (BEAKER) (test ywnd=995) 27.4 pg 25.7-32.2 MEAN CORPUSCULAR HEMOGLOBIN CONC (BEAKER) (test uuzc=488) 31.6 GM/DL 32.3-36.5 RED CELL DISTRIBUTION WIDTH (BEAKER) (test aakp=964) 18.3 % 11.6-14.4 PLATELET COUNT (BEAKER) (test pnwn=454) 362 K/CU MM 150-450 MEAN PLATELET VOLUME (BEAKER) (test ibmg=941) 9.3 fL 9.4-12.4 NUCLEATED RED BLOOD CELLS (BEAKER) (test nadm=337) 0 /100 WBC 0-0 NEUTROPHILS RELATIVE PERCENT (BEAKER) (test gllx=505) 65 % LYMPHOCYTES RELATIVE PERCENT (BEAKER) (test owcl=468) 16 % MONOCYTES RELATIVE PERCENT (BEAKER) (test wiba=811) 10 % EOSINOPHILS RELATIVE PERCENT (BEAKER) (test ecnd=208) 7 % BASOPHILS RELATIVE PERCENT (BEAKER) (test tpqj=615) 1 % NEUTROPHILS ABSOLUTE COUNT (BEAKER) (test xzuz=184) 10.54 K/ L 1.78-5.38 LYMPHOCYTES ABSOLUTE COUNT (BEAKER) (test cbfn=658) 2.50 K/ L 1.32-3.57 MONOCYTES ABSOLUTE COUNT (BEAKER) (test dfyb=956) 1.59 K/ L 0.30-0.82 EOSINOPHILS ABSOLUTE COUNT (BEAKER) (test qijb=823) 1.11 K/ L 0.04-0.54 BASOPHILS ABSOLUTE COUNT (BEAKER) (test pmry=919) 0.15 K/ L 0.01-0.08 IMMATURE GRANULOCYTES-RELATIVE PERCENT (BEAKER) (test lfzd=1841) 2 % 0-1 CALCIUM, [id number] 02:43:00* Test Item Value Reference Range Comments CALCIUM IONIZED (BEAKER) (test xgsw=680) 1.12 mmol/L 1.12-1.27 PH, BLOOD (BEAKER) (test frae=6696) 7.45 CT, BRAIN, WITHOUT [id number] 08:13:00FINAL REPORT CT Head without contrast CLINICAL HISTORY: Intracranial hemorrhage TECHNIQUE: Contiguous axial images through the head without contrast. This exam was performed according to the departmental dose optimization program which includes automated exposure control, adjustment of the mA and/or kV according to the patient size, and/or use of an iterative reconstruction technique. COMPARISON: 09/09/2017 FINDINGS: The left frontal hemorrhagic focus and adjacent subarachnoid hemorrhage appears slightly less prominent. Trace hyperdensity is again seen in the left parietal occipital region, compatible with a lesion seen on the previous contrast-enhanced CT. There is no evidence for new hemorrhage or mass effect elsewhere in the brain. Chronic microvascular ischemic disease is again seen. Generalized parenchymal volume loss is again noted without hydrocephalus or midline shift. There are atherosclerotic calcifications of the intracranial circulation. There are no extra-axial fluid collections. The skull is intact. The visualized paranasal sinuses are well-aerated. IMPRESSION: Since 09/09/2017, the left frontal hemorrhagic focus and subarachnoid hemorrhage appea rs slightly less prominent. Trace hyperdensity is again seen in a left parieto-o ccipital sulcus. Signed: Shonda Mahoney MDReport Verified Date/Time: 09/12/2017 08:13:57 Reading Location: [address] Neuro Reading Room Electronically s igned by: SHONDA MAHONEY M.D. on 09/12/2017 08:13 AM [id number] 06:06:00* Test Item Value Reference Range Comments MAGNESIUM (BEAKER) (test dqqh=960) 2.0 mg/dL 1.6-2.6 BASIC METABOLIC [id number] 06:06:00* Test Item Value Reference Range Comments SODIUM (BEAKER) (test xsrd=250) 133 meq/L 136-145 POTASSIUM (BEAKER) (test xtdo=384) 4.7 meq/L 3.5-5.1 CHLORIDE (BEAKER) (test lqpl=005) 97 meq/L 98-107 CO2 (BEAKER) (test rznq=705) 26 meq/L 22-29 BLOOD UREA NITROGEN (BEAKER) (test ocju=512) 52 mg/dL 7-21 CREATININE (BEAKER) (test xsvn=064) 1.08 mg/dL 0.57-1.25 GLUCOSE RANDOM (BEAKER) (test xrvw=073) 96 mg/dL 70-105 CALCIUM (BEAKER) (test hzec=488) 9.3 mg/dL 8.4-10.2 EGFR (BEAKER) (test uoxp=1822) 66 mL/min/1.73 sq m ESTIMATED GFR IS NOT ACCURATE CREATININE CLEARANCE IN PREDICTING GLOMERULAR FILTRATION RATE. ESTIMATED GFR IS NOT APPLICABLE FOR DIALYSIS PATIENTS. LACTATE DEHYDROGENASE (LDH)2017-09-12 06:06:00* Test Item Value Reference Range Comments LACTATE DEHYDROGENASE (BEAKER) (test llep=765) 362 U/L 125-220 PT/[id number] 06:04:00* Test Item Value Reference Range Comments PROTIME (BEAKER) (test lbwz=206) 14.7 seconds 11.7-14.7 INR (BEAKER) (test zsbf=540) 1.2 <=5.9 PARTIAL THROMBOPLASTIN TIME (BEAKER) (test zwul=686) 64.6 seconds 22.5-36.0 RECOMMENDED COUMADIN/WARFARIN INR THERAPY RANGESSTANDARD DOSE: 2.0 - 3.0 Inclu navid: PROPHYLAXIS for venous thrombosis, systemic embolization; TREATMENT for dayna ous thrombosis and/or pulmonary embolus.HIGH RISK: Target INR is 2.5-3.5 for pat ients with mechanical heart valves.PROTHROMBIN TIME/[id number] 06:03:00* Test Item Value Reference Range Comments PROTIME (BEAKER) (test rxvd=225) 14.7 seconds 11.7-14.7 INR (BEAKER) (test nthi=724) 1.2 <=5.9 RECOMMENDED COUMADIN/WARFARIN INR THERAPY RANGESSTANDARD DOSE: 2.0 - 3.0 Inclu navid: PROPHYLAXIS for venous thrombosis, systemic embolization; TREATMENT for dayna ous thrombosis and/or pulmonary embolus.HIGH RISK: Target INR is 2.5-3.5 for pat ients with mechanical heart valves.CBC W/PLT COUNT & AUTO [id number] 06:03:00* Test Item Value Reference Range Comments WHITE BLOOD CELL COUNT (BEAKER) (test cqyq=554) 16.2 K/ L 3.5-10.5 RED BLOOD CELL COUNT (BEAKER) (test xexa=041) 3.28 M/ L 4.63-6.08 HEMOGLOBIN (BEAKER) (test konm=683) 9.0 GM/DL 13.7-17.5 HEMATOCRIT (BEAKER) (test diez=920) 28.7 % 40.1-51.0 MEAN CORPUSCULAR VOLUME (BEAKER) (test fazl=968) 87.5 fL 79.0-92.2 MEAN CORPUSCULAR HEMOGLOBIN (BEAKER) (test xqih=432) 27.4 pg 25.7-32.2 MEAN CORPUSCULAR HEMOGLOBIN CONC (BEAKER) (test bvth=407) 31.4 GM/DL 32.3-36.5 RED CELL DISTRIBUTION WIDTH (BEAKER) (test ptas=470) 18.4 % 11.6-14.4 PLATELET COUNT (BEAKER) (test cmrs=633) 384 K/CU MM 150-450 MEAN PLATELET VOLUME (BEAKER) (test kuot=685) 9.3 fL 9.4-12.4 NUCLEATED RED BLOOD CELLS (BEAKER) (test aytq=129) 0 /100 WBC 0-0 NEUTROPHILS RELATIVE PERCENT (BEAKER) (test oxsa=690) 62 % LYMPHOCYTES RELATIVE PERCENT (BEAKER) (test whcd=296) 18 % MONOCYTES RELATIVE PERCENT (BEAKER) (test lreg=848) 10 % EOSINOPHILS RELATIVE PERCENT (BEAKER) (test epke=333) 7 % BASOPHILS RELATIVE PERCENT (BEAKER) (test awxg=360) 1 % NEUTROPHILS ABSOLUTE COUNT (BEAKER) (test vlmg=929) 10.01 K/ L 1.78-5.38 LYMPHOCYTES ABSOLUTE COUNT (BEAKER) (test logf=324) 2.94 K/ L 1.32-3.57 MONOCYTES ABSOLUTE COUNT (BEAKER) (test nmbs=368) 1.60 K/ L 0.30-0.82 EOSINOPHILS ABSOLUTE COUNT (BEAKER) (test zdqg=680) 1.19 K/ L 0.04-0.54 BASOPHILS ABSOLUTE COUNT (BEAKER) (test nyxz=537) 0.15 K/ L 0.01-0.08 IMMATURE GRANULOCYTES-RELATIVE PERCENT (BEAKER) (test doky=7244) 2 % 0-1 CALCIUM, [id number] 05:52:00* Test Item Value Reference Range Comments CALCIUM IONIZED (BEAKER) (test fmgs=394) 1.09 mmol/L 1.12-1.27 PH, BLOOD (BEAKER) (test tpng=0087) 7.42 CBC (HEMOGRAM ONLY)2017-09-12 05:30:00* Test Item Value Reference Range Comments WHITE BLOOD CELL COUNT (BEAKER) (test zkcf=165) 16.2 K/ L 3.5-10.5 RED BLOOD CELL COUNT (BEAKER) (test ezye=595) 3.28 M/ L 4.63-6.08 HEMOGLOBIN (BEAKER) (test gykh=809) 9.0 GM/DL 13.7-17.5 HEMATOCRIT (BEAKER) (test bjde=992) 28.7 % 40.1-51.0 MEAN CORPUSCULAR VOLUME (BEAKER) (test qmyq=100) 87.5 fL 79.0-92.2 MEAN CORPUSCULAR HEMOGLOBIN (BEAKER) (test juby=626) 27.4 pg 25.7-32.2 MEAN CORPUSCULAR HEMOGLOBIN CONC (BEAKER) (test czvp=562) 31.4 GM/DL 32.3-36.5 RED CELL DISTRIBUTION WIDTH (BEAKER) (test ndyg=272) 18.4 % 11.6-14.4 PLATELET COUNT (BEAKER) (test sykf=365) 384 K/CU MM 150-450 MEAN PLATELET VOLUME (BEAKER) (test vxqa=371) 9.3 fL 9.4-12.4 NUCLEATED RED BLOOD CELLS (BEAKER) (test cpzf=062) 0 /100 WBC 0-0 [id number] 21:20:00* Test Item Value Reference Range Comments PARTIAL THROMBOPLASTIN TIME (BEAKER) (test gdgb=086) 56.3 seconds 22.5-36.0 BASIC METABOLIC [id number] 17:04:00* Test Item Value Reference Range Comments SODIUM (BEAKER) (test cwbp=560) 133 meq/L 136-145 POTASSIUM (BEAKER) (test upqs=077) 5.0 meq/L 3.5-5.1 CHLORIDE (BEAKER) (test qrsg=597) 98 meq/L 98-107 CO2 (BEAKER) (test pzxx=096) 28 meq/L 22-29 BLOOD UREA NITROGEN (BEAKER) (test nrcy=334) 49 mg/dL 7-21 CREATININE (BEAKER) (test nxxe=267) 1.12 mg/dL 0.57-1.25 GLUCOSE RANDOM (BEAKER) (test fsld=095) 107 mg/dL 70-105 CALCIUM (BEAKER) (test qzfh=814) 9.2 mg/dL 8.4-10.2 EGFR (BEAKER) (test lqcx=1273) 63 mL/min/1.73 sq m ESTIMATED GFR IS NOT ACCURATE CREATININE CLEARANCE IN PREDICTING GLOMERULAR FILTRATION RATE. ESTIMATED GFR IS NOT APPLICABLE FOR DIALYSIS PATIENTS. RAD, CHEST, 1 VIEW, NON [id number] 14:36:00Reason for exam:->pleural effusionShould this be performed at the bedside?->YesFINAL REPORT Chest one view INDICATION: Pleural effusion COMPARISON: 09/08/2017 IMPRESSION: Two frontal images of the chest are provided. Median sternotomy changes, ICD, LVAD, and right PICC line are again noted. The cardiac silhouette is enlarged. Left retrocardiac opacity is similar and suggests atelectasis or consolidation and adjacent pleural effusion. No pneumothorax is identified. There is increased gaseous gastric distention and other partially imaged dilated bowel in the upper abdomen. Dedicated imaging to be obtained as clinically warranted. Signed: Larissa Jackson MDReport Verified Date/Time: 09/11/2017 14:36:12 Reading Location: [facility] [id number] Consult Reading Room ATE DEHYDROGENASE (LDH)2017-09-11 14:26:00* Test Item Value Reference Range Comments LACTATE DEHYDROGENASE (BEAKER) (test klda=601) 298 U/L 125-220 [id number] 13:31:00* Test Item Value Reference Range Comments PARTIAL THROMBOPLASTIN TIME (BEAKER) (test rfdt=883) 39.8 seconds 22.5-36.0 [id number] 09:31:00* Test Item Value Reference Range Comments MAGNESIUM (BEAKER) (test ugrj=836) 2.0 mg/dL 1.6-2.6 LACTATE DEHYDROGENASE (LDH)2017-09-11 09:31:00* Test Item Value Reference Range Comments LACTATE DEHYDROGENASE (BEAKER) (test vwej=501) 288 U/L 125-220 CALCIUM, [id number] 06:54:00* Test Item Value Reference Range Comments CALCIUM IONIZED (BEAKER) (test utoj=681) 1.06 mmol/L 1.12-1.27 PH, BLOOD (BEAKER) (test kege=6619) 7.45 CBC (HEMOGRAM ONLY)2017-09-11 06:52:00* Test Item Value Reference Range Comments WHITE BLOOD CELL COUNT (BEAKER) (test pdui=069) 15.7 K/ L 3.5-10.5 RED BLOOD CELL COUNT (BEAKER) (test bwsb=474) 3.47 M/ L 4.63-6.08 HEMOGLOBIN (BEAKER) (test vzxk=508) 9.3 GM/DL 13.7-17.5 HEMATOCRIT (BEAKER) (test vcfs=771) 30.6 % 40.1-51.0 MEAN CORPUSCULAR VOLUME (BEAKER) (test awhv=504) 88.2 fL 79.0-92.2 MEAN CORPUSCULAR HEMOGLOBIN (BEAKER) (test mamp=790) 26.8 pg 25.7-32.2 MEAN CORPUSCULAR HEMOGLOBIN CONC (BEAKER) (test oklm=954) 30.4 GM/DL 32.3-36.5 RED CELL DISTRIBUTION WIDTH (BEAKER) (test llwi=043) 18.5 % 11.6-14.4 PLATELET COUNT (BEAKER) (test nsmi=546) 430 K/CU MM 150-450 MEAN PLATELET VOLUME (BEAKER) (test luyk=081) 9.7 fL 9.4-12.4 NUCLEATED RED BLOOD CELLS (BEAKER) (test gonu=869) 0 /100 WBC 0-0 PT/[id number] 06:44:00* Test Item Value Reference Range Comments PROTIME (BEAKER) (test nrzf=008) 16.2 seconds 11.7-14.7 INR (BEAKER) (test hiel=347) 1.3 <=5.9 PARTIAL THROMBOPLASTIN TIME (BEAKER) (test jabs=091) 39.9 seconds 22.5-36.0 RECOMMENDED COUMADIN/WARFARIN INR THERAPY RANGESSTANDARD DOSE: 2.0 - 3.0 Inclu navid: PROPHYLAXIS for venous thrombosis, systemic embolization; TREATMENT for dayna ous thrombosis and/or pulmonary embolus.HIGH RISK: Target INR is 2.5-3.5 for pat ients with mechanical heart valves.[id number] 01:02:00* Test Item Value Reference Range Comments PARTIAL THROMBOPLASTIN TIME (BEAKER) (test lapo=220) 49.9 seconds 22.5-36.0 [id number] 18:24:00* Test Item Value Reference Range Comments PARTIAL THROMBOPLASTIN TIME (BEAKER) (test spfk=123) 39.0 seconds 22.5-36.0 [id number] 10:45:00* Test Item Value Reference Range Comments PARTIAL THROMBOPLASTIN TIME (BEAKER) (test syny=796) 38.3 seconds 22.5-36.0 CALCIUM, [id number] 07:10:00* Test Item Value Reference Range Comments CALCIUM IONIZED (BEAKER) (test yclf=346) 1.09 mmol/L 1.12-1.27 PH, BLOOD (BEAKER) (test mooh=8581) 7.42 PT/[id number] 04:45:00* Test Item Value Reference Range Comments PROTIME (BEAKER) (test jowv=760) 16.3 seconds 11.7-14.7 INR (BEAKER) (test cmps=979) 1.3 <=5.9 PARTIAL THROMBOPLASTIN TIME (BEAKER) (test pvdk=325) 39.4 seconds 22.5-36.0 RECOMMENDED COUMADIN/WARFARIN INR THERAPY RANGESSTANDARD DOSE: 2.0 - 3.0 Inclu navid: PROPHYLAXIS for venous thrombosis, systemic embolization; TREATMENT for dayna ous thrombosis and/or pulmonary embolus.HIGH RISK: Target INR is 2.5-3.5 for pat ients with mechanical heart valves.[id number] 04:44:00* Test Item Value Reference Range Comments MAGNESIUM (BEAKER) (test gfce=696) 2.4 mg/dL 1.6-2.6 BASIC METABOLIC [id number] 04:44:00* Test Item Value Reference Range Comments SODIUM (BEAKER) (test kand=513) 135 meq/L 136-145 POTASSIUM (BEAKER) (test dyfx=317) 4.5 meq/L 3.5-5.1 CHLORIDE (BEAKER) (test jiny=434) 98 meq/L 98-107 CO2 (BEAKER) (test snrz=099) 26 meq/L 22-29 BLOOD UREA NITROGEN (BEAKER) (test sfpo=815) 53 mg/dL 7-21 CREATININE (BEAKER) (test ddix=202) 1.03 mg/dL 0.57-1.25 GLUCOSE RANDOM (BEAKER) (test gqtj=920) 90 mg/dL 70-105 CALCIUM (BEAKER) (test vges=974) 9.4 mg/dL 8.4-10.2 EGFR (BEAKER) (test bjwx=4192) 69 mL/min/1.73 sq m ESTIMATED GFR IS NOT ACCURATE CREATININE CLEARANCE IN PREDICTING GLOMERULAR FILTRATION RATE. ESTIMATED GFR IS NOT APPLICABLE FOR DIALYSIS PATIENTS. LACTATE DEHYDROGENASE (LDH)2017-09-10 04:44:00* Test Item Value Reference Range Comments LACTATE DEHYDROGENASE (BEAKER) (test itql=308) 516 U/L 125-220 PROTHROMBIN TIME/[id number] 04:44:00* Test Item Value Reference Range Comments PROTIME (BEAKER) (test guwy=222) 16.3 seconds 11.7-14.7 INR (BEAKER) (test jgbg=636) 1.3 <=5.9 RECOMMENDED COUMADIN/WARFARIN INR THERAPY RANGESSTANDARD DOSE: 2.0 - 3.0 Inclu navid: PROPHYLAXIS for venous thrombosis, systemic embolization; TREATMENT for dayna ous thrombosis and/or pulmonary embolus.HIGH RISK: Target INR is 2.5-3.5 for pat ients with mechanical heart valves.CBC W/PLT COUNT & AUTO [id number] 04:39:00* Test Item Value Reference Range Comments WHITE BLOOD CELL COUNT (BEAKER) (test qirs=608) 15.6 K/ L 3.5-10.5 RED BLOOD CELL COUNT (BEAKER) (test vjvz=754) 3.39 M/ L 4.63-6.08 HEMOGLOBIN (BEAKER) (test saib=508) 9.3 GM/DL 13.7-17.5 HEMATOCRIT (BEAKER) (test pqqp=284) 30.4 % 40.1-51.0 MEAN CORPUSCULAR VOLUME (BEAKER) (test neho=710) 89.7 fL 79.0-92.2 MEAN CORPUSCULAR HEMOGLOBIN (BEAKER) (test evgn=105) 27.4 pg 25.7-32.2 MEAN CORPUSCULAR HEMOGLOBIN CONC (BEAKER) (test mplu=140) 30.6 GM/DL 32.3-36.5 RED CELL DISTRIBUTION WIDTH (BEAKER) (test lwel=792) 18.8 % 11.6-14.4 PLATELET COUNT (BEAKER) (test zynp=638) 487 K/CU MM 150-450 MEAN PLATELET VOLUME (BEAKER) (test fzli=317) 9.4 fL 9.4-12.4 NUCLEATED RED BLOOD CELLS (BEAKER) (test pwpi=751) 0 /100 WBC 0-0 NEUTROPHILS RELATIVE PERCENT (BEAKER) (test mqpy=181) 65 % LYMPHOCYTES RELATIVE PERCENT (BEAKER) (test mcnz=580) 18 % MONOCYTES RELATIVE PERCENT (BEAKER) (test nvsn=363) 8 % EOSINOPHILS RELATIVE PERCENT (BEAKER) (test kpok=071) 6 % BASOPHILS RELATIVE PERCENT (BEAKER) (test wybm=919) 1 % NEUTROPHILS ABSOLUTE COUNT (BEAKER) (test famr=394) 10.12 K/ L 1.78-5.38 LYMPHOCYTES ABSOLUTE COUNT (BEAKER) (test dkjt=357) 2.82 K/ L 1.32-3.57 MONOCYTES ABSOLUTE COUNT (BEAKER) (test jpcr=338) 1.30 K/ L 0.30-0.82 EOSINOPHILS ABSOLUTE COUNT (BEAKER) (test dksy=743) 0.95 K/ L 0.04-0.54 BASOPHILS ABSOLUTE COUNT (BEAKER) (test fzrb=816) 0.18 K/ L 0.01-0.08 IMMATURE GRANULOCYTES-RELATIVE PERCENT (BEAKER) (test aqrq=7728) 2 % 0-1 CBC (HEMOGRAM ONLY)2017-09-10 04:26:00* Test Item Value Reference Range Comments WHITE BLOOD CELL COUNT (BEAKER) (test qkol=877) 15.6 K/ L 3.5-10.5 RED BLOOD CELL COUNT (BEAKER) (test cgiv=851) 3.39 M/ L 4.63-6.08 HEMOGLOBIN (BEAKER) (test byym=745) 9.3 GM/DL 13.7-17.5 HEMATOCRIT (BEAKER) (test koca=444) 30.4 % 40.1-51.0 MEAN CORPUSCULAR VOLUME (BEAKER) (test ypfs=240) 89.7 fL 79.0-92.2 MEAN CORPUSCULAR HEMOGLOBIN (BEAKER) (test qous=812) 27.4 pg 25.7-32.2 MEAN CORPUSCULAR HEMOGLOBIN CONC (BEAKER) (test aray=474) 30.6 GM/DL 32.3-36.5 RED CELL DISTRIBUTION WIDTH (BEAKER) (test nxjt=159) 18.8 % 11.6-14.4 PLATELET COUNT (BEAKER) (test wjxr=715) 487 K/CU MM 150-450 MEAN PLATELET VOLUME (BEAKER) (test bjpy=624) 9.4 fL 9.4-12.4 NUCLEATED RED BLOOD CELLS (BEAKER) (test aepi=962) 0 /100 WBC 0-0 [id number] 01:25:00* Test Item Value Reference Range Comments PARTIAL THROMBOPLASTIN TIME (BEAKER) (test syxe=647) 40.6 seconds 22.5-36.0 [id number] 19:26:00* Test Item Value Reference Range Comments PARTIAL THROMBOPLASTIN TIME (BEAKER) (test dkge=447) 42.0 seconds 22.5-36.0 BLOOD [id number] 17:00:00* Test Item Value Reference Range Comments CULTURE (BEAKER) (test essj=6593) No growth in 5 days BLOOD [id number] 17:00:00* Test Item Value Reference Range Comments CULTURE (BEAKER) (test hkjj=1513) No growth in [address], BRAIN, [id number] 09:08:00FINAL REPORT CT Head with and without contrast CLINICAL HISTORY: mass lesion TECHNIQUE: Contiguous axial images through the head with and without contrast. This exam was performed according to the departmental dose optimization program which includes automated exposure control, adjustment of the mA and/or kV according to the patient size, and/or use of an iterative reconstruction technique. COMPARISON: CTA 09/08/2017 FINDINGS: A round 9 mm hyperdense focus is again seen in the left mid frontal lobe with adjacent subarachnoid hemorrhage grossly unchanged. The frontal focus appears to mildly enhance following contrast. There appears to be a second 3 mm enhancing focus in the left parietal lobe, near the parieto-occipital sulcus. There is periventricular and subcortical white matter hypodensity which is nonspecific but compatible with chronic microvascular ischemic change. There are atherosclerotic calcifications of the intracranial circulation. There is generalized parenchymal volume loss without hydrocephalus, midline shift, or significant mass effect. There are no extra-axial fluid collections. The skull is intact. The visualized paranasal sinuses are well-aerated. IMPRESSION: The 9 mm left mid frontal hemorrhagic focus with adjacent subarachnoid hemorrhage appears to mildly enhance. There also appears to be a 3 mm enhancing focus near the left parietal occipital sulcus. Given this apparent multifocality, metastatic disease should be clinically excluded. Signed: Shonda Mahoney MDReport Verified Date/Time: 09/09/2017 09:08:42 Reading Location: [facility] C0[facility] Neuro Reading Room ATE DEHYDROGENASE (LDH)2017-09-09 07:49:00* Test Item Value Reference Range Comments LACTATE DEHYDROGENASE (BEAKER) (test dpzp=551) 407 U/L 125-220 CALCIUM, [id number] 07:20:00* Test Item Value Reference Range Comments CALCIUM IONIZED (BEAKER) (test dofd=522) 1.17 mmol/L 1.12-1.27 PH, BLOOD (BEAKER) (test lmdp=0590) 7.44 [id number] 07:20:00* Test Item Value Reference Range Comments MAGNESIUM (BEAKER) (test nckc=604) 2.3 mg/dL 1.6-2.6 BASIC METABOLIC [id number] 07:20:00* Test Item Value Reference Range Comments SODIUM (BEAKER) (test gpsp=598) 136 meq/L 136-145 POTASSIUM (BEAKER) (test utuy=377) 4.3 meq/L 3.5-5.1 CHLORIDE (BEAKER) (test cacf=411) 99 meq/L 98-107 CO2 (BEAKER) (test olsa=208) 27 meq/L 22-29 BLOOD UREA NITROGEN (BEAKER) (test whby=273) 50 mg/dL 7-21 CREATININE (BEAKER) (test gdfe=600) 1.10 mg/dL 0.57-1.25 GLUCOSE RANDOM (BEAKER) (test gzyw=145) 74 mg/dL 70-105 CALCIUM (BEAKER) (test tkrq=394) 9.1 mg/dL 8.4-10.2 EGFR (BEAKER) (test sspd=7600) 64 mL/min/1.73 sq m ESTIMATED GFR IS NOT ACCURATE CREATININE CLEARANCE IN PREDICTING GLOMERULAR FILTRATION RATE. ESTIMATED GFR IS NOT APPLICABLE FOR DIALYSIS PATIENTS. CBC W/PLT COUNT & AUTO [id number] 06:36:00* Test Item Value Reference Range Comments WHITE BLOOD CELL COUNT (BEAKER) (test zswu=778) 14.5 K/ L 3.5-10.5 RED BLOOD CELL COUNT (BEAKER) (test umms=876) 3.41 M/ L 4.63-6.08 HEMOGLOBIN (BEAKER) (test ravl=953) 9.3 GM/DL 13.7-17.5 HEMATOCRIT (BEAKER) (test yxhh=908) 29.6 % 40.1-51.0 MEAN CORPUSCULAR VOLUME (BEAKER) (test spak=916) 86.8 fL 79.0-92.2 MEAN CORPUSCULAR HEMOGLOBIN (BEAKER) (test vetq=078) 27.3 pg 25.7-32.2 MEAN CORPUSCULAR HEMOGLOBIN CONC (BEAKER) (test hcsg=646) 31.4 GM/DL 32.3-36.5 RED CELL DISTRIBUTION WIDTH (BEAKER) (test zogh=901) 18.6 % 11.6-14.4 PLATELET COUNT (BEAKER) (test lopw=994) 428 K/CU MM 150-450 MEAN PLATELET VOLUME (BEAKER) (test rzjv=715) 9.5 fL 9.4-12.4 NUCLEATED RED BLOOD CELLS (BEAKER) (test tqvx=043) 0 /100 WBC 0-0 NEUTROPHILS RELATIVE PERCENT (BEAKER) (test cdpu=652) 62 % LYMPHOCYTES RELATIVE PERCENT (BEAKER) (test qzfi=064) 19 % MONOCYTES RELATIVE PERCENT (BEAKER) (test xcge=627) 9 % EOSINOPHILS RELATIVE PERCENT (BEAKER) (test xdxq=498) 8 % BASOPHILS RELATIVE PERCENT (BEAKER) (test bctq=826) 1 % NEUTROPHILS ABSOLUTE COUNT (BEAKER) (test ustn=317) 9.03 K/ L 1.78-5.38 LYMPHOCYTES ABSOLUTE COUNT (BEAKER) (test rybq=999) 2.68 K/ L 1.32-3.57 MONOCYTES ABSOLUTE COUNT (BEAKER) (test oqaw=342) 1.34 K/ L 0.30-0.82 EOSINOPHILS ABSOLUTE COUNT (BEAKER) (test lhca=057) 1.10 K/ L 0.04-0.54 BASOPHILS ABSOLUTE COUNT (BEAKER) (test wogs=675) 0.17 K/ L 0.01-0.08 IMMATURE GRANULOCYTES-RELATIVE PERCENT (BEAKER) (test gxjh=2785) 1 % 0-1 PT/[id number] 06:09:00* Test Item Value Reference Range Comments PROTIME (BEAKER) (test zrli=476) 17.3 seconds 11.7-14.7 INR (BEAKER) (test dxho=441) 1.4 <=5.9 PARTIAL THROMBOPLASTIN TIME (BEAKER) (test khxd=435) 47.1 seconds 22.5-36.0 RECOMMENDED COUMADIN/WARFARIN INR THERAPY RANGESSTANDARD DOSE: 2.0 - 3.0 Inclu navid: PROPHYLAXIS for venous thrombosis, systemic embolization; TREATMENT for dayna ous thrombosis and/or pulmonary embolus.HIGH RISK: Target INR is 2.5-3.5 for pat ients with mechanical heart valves.PROTHROMBIN TIME/[id number] 06:08:00* Test Item Value Reference Range Comments PROTIME (BEAKER) (test etun=929) 17.3 seconds 11.7-14.7 INR (BEAKER) (test vjqn=890) 1.4 <=5.9 RECOMMENDED COUMADIN/WARFARIN INR THERAPY RANGESSTANDARD DOSE: 2.0 - 3.0 Inclu navid: PROPHYLAXIS for venous thrombosis, systemic embolization; TREATMENT for dayna ous thrombosis and/or pulmonary embolus.HIGH RISK: Target INR is 2.5-3.5 for pat ients with mechanical heart valves.CBC (HEMOGRAM ONLY)2017-09-09 05:54:00* Test Item Value Reference Range Comments WHITE BLOOD CELL COUNT (BEAKER) (test upmm=904) 14.5 K/ L 3.5-10.5 RED BLOOD CELL COUNT (BEAKER) (test newz=369) 3.41 M/ L 4.63-6.08 HEMOGLOBIN (BEAKER) (test qusd=507) 9.3 GM/DL 13.7-17.5 HEMATOCRIT (BEAKER) (test lcms=168) 29.6 % 40.1-51.0 MEAN CORPUSCULAR VOLUME (BEAKER) (test relz=433) 86.8 fL 79.0-92.2 MEAN CORPUSCULAR HEMOGLOBIN (BEAKER) (test omgi=022) 27.3 pg 25.7-32.2 MEAN CORPUSCULAR HEMOGLOBIN CONC (BEAKER) (test kxwg=405) 31.4 GM/DL 32.3-36.5 RED CELL DISTRIBUTION WIDTH (BEAKER) (test uudf=534) 18.6 % 11.6-14.4 PLATELET COUNT (BEAKER) (test fgho=041) 428 K/CU MM 150-450 MEAN PLATELET VOLUME (BEAKER) (test mvml=124) 9.5 fL 9.4-12.4 NUCLEATED RED BLOOD CELLS (BEAKER) (test lzuo=024) 0 /100 WBC 0-0 [id number] 23:57:00* Test Item Value Reference Range Comments PARTIAL THROMBOPLASTIN TIME (BEAKER) (test hrnl=813) 43.9 seconds 22.5-36.0 [id number] 18:35:00* Test Item Value Reference Range Comments PARTIAL THROMBOPLASTIN TIME (BEAKER) (test pout=968) 38.0 seconds 22.5-36.0 Prior to initiating heparinPLATELET [id number] 18:17:00* Test Item Value Reference Range Comments PLATELET COUNT (BEAKER) (test vnwe=570) 446 K/CU MM 150-450 LACTATE DEHYDROGENASE (LDH)2017-09-08 10:43:00* Test Item Value Reference Range Comments LACTATE DEHYDROGENASE (BEAKER) (test buci=895) 315 U/L 125-220 Specimen slightly hemolyzed RAD, CHEST, 1 VIEW, NON [id number] 06:29:00Reason for exam:->L pleural effusionShould this be performed at the bedside?->YesFINAL REPORT RAD, CHEST, 1 VIEW, NON DEPT INDICATION: L pleural effusion COMPARISON: Prior day's exam TECHNIQUE: Portable frontal view of the chest. IMPRESSION: Stable PICC line and LVAD device.Stable cardiomegaly.No pneumothorax.Grossly clear right lung.Stable dense opacification at the left lung base likely reflecting a combination of pleural fluid and adjacent airspace disease.No acute osseous abnormality. Signed: Audi Beasley MDReport Verified Date/Time: 09/08/2017 06:29:43 Reading Location: [facility] C013X Ortho Consult Reading Room ESIUM 2017-09-08 05:41:00* Test Item Value Reference Range Comments MAGNESIUM (BEAKER) (test onjo=692) 2.4 mg/dL 1.6-2.6 BASIC METABOLIC [id number] 05:41:00* Test Item Value Reference Range Comments SODIUM (BEAKER) (test hkds=056) 135 meq/L 136-145 POTASSIUM (BEAKER) (test ymmh=198) 4.4 meq/L 3.5-5.1 CHLORIDE (BEAKER) (test cvdf=316) 100 meq/L 98-107 CO2 (BEAKER) (test rcam=436) 26 meq/L 22-29 BLOOD UREA NITROGEN (BEAKER) (test jdei=340) 46 mg/dL 7-21 CREATININE (BEAKER) (test ujjy=121) 1.06 mg/dL 0.57-1.25 GLUCOSE RANDOM (BEAKER) (test habg=316) 83 mg/dL 70-105 CALCIUM (BEAKER) (test vlqj=570) 9.0 mg/dL 8.4-10.2 EGFR (BEAKER) (test ient=5706) 67 mL/min/1.73 sq m ESTIMATED GFR IS NOT ACCURATE CREATININE CLEARANCE IN PREDICTING GLOMERULAR FILTRATION RATE. ESTIMATED GFR IS NOT APPLICABLE FOR DIALYSIS PATIENTS. PT/[id number] 05:28:00* Test Item Value Reference Range Comments PROTIME (BEAKER) (test xtdl=671) 20.5 seconds 11.7-14.7 INR (BEAKER) (test jtpu=018) 1.8 <=5.9 PARTIAL THROMBOPLASTIN TIME (BEAKER) (test vlys=494) 48.8 seconds 22.5-36.0 RECOMMENDED COUMADIN/WARFARIN INR THERAPY RANGESSTANDARD DOSE: 2.0 - 3.0 Inclu navid: PROPHYLAXIS for venous thrombosis, systemic embolization; TREATMENT for dayna ous thrombosis and/or pulmonary embolus.HIGH RISK: Target INR is 2.5-3.5 for pat ients with mechanical heart valves.PROTHROMBIN TIME/[id number] 05:27:00* Test Item Value Reference Range Comments PROTIME (BEAKER) (test xvgo=905) 20.5 seconds 11.7-14.7 INR (BEAKER) (test xlwb=768) 1.8 <=5.9 RECOMMENDED COUMADIN/WARFARIN INR THERAPY RANGESSTANDARD DOSE: 2.0 - 3.0 Inclu navid: PROPHYLAXIS for venous thrombosis, systemic embolization; TREATMENT for dayna ous thrombosis and/or pulmonary embolus.HIGH RISK: Target INR is 2.5-3.5 for pat ients with mechanical heart valves.CALCIUM, [id number] 05:25:00* Test Item Value Reference Range Comments CALCIUM IONIZED (BEAKER) (test bqlu=941) 1.14 mmol/L 1.12-1.27 PH, BLOOD (BEAKER) (test piah=2720) 7.43 CBC W/PLT COUNT & AUTO [id number] 05:09:00* Test Item Value Reference Range Comments WHITE BLOOD CELL COUNT (BEAKER) (test dvgp=688) 15.3 K/ L 3.5-10.5 RED BLOOD CELL COUNT (BEAKER) (test ugkk=546) 3.42 M/ L 4.63-6.08 HEMOGLOBIN (BEAKER) (test oifd=696) 9.3 GM/DL 13.7-17.5 HEMATOCRIT (BEAKER) (test prca=038) 29.9 % 40.1-51.0 MEAN CORPUSCULAR VOLUME (BEAKER) (test zotb=409) 87.4 fL 79.0-92.2 MEAN CORPUSCULAR HEMOGLOBIN (BEAKER) (test tnma=615) 27.2 pg 25.7-32.2 MEAN CORPUSCULAR HEMOGLOBIN CONC (BEAKER) (test jwii=577) 31.1 GM/DL 32.3-36.5 RED CELL DISTRIBUTION WIDTH (BEAKER) (test gobp=723) 18.8 % 11.6-14.4 PLATELET COUNT (BEAKER) (test jsfb=982) 442 K/CU MM 150-450 MEAN PLATELET VOLUME (BEAKER) (test pjsb=701) 9.4 fL 9.4-12.4 NUCLEATED RED BLOOD CELLS (BEAKER) (test mexy=082) 0 /100 WBC 0-0 NEUTROPHILS RELATIVE PERCENT (BEAKER) (test qjtf=691) 67 % LYMPHOCYTES RELATIVE PERCENT (BEAKER) (test kaix=356) 13 % MONOCYTES RELATIVE PERCENT (BEAKER) (test cdlv=766) 10 % EOSINOPHILS RELATIVE PERCENT (BEAKER) (test rpjv=614) 8 % BASOPHILS RELATIVE PERCENT (BEAKER) (test stbt=850) 1 % NEUTROPHILS ABSOLUTE COUNT (BEAKER) (test wtwp=373) 10.23 K/ L 1.78-5.38 LYMPHOCYTES ABSOLUTE COUNT (BEAKER) (test tlim=551) 1.95 K/ L 1.32-3.57 MONOCYTES ABSOLUTE COUNT (BEAKER) (test dmvk=663) 1.56 K/ L 0.30-0.82 EOSINOPHILS ABSOLUTE COUNT (BEAKER) (test gvwz=835) 1.17 K/ L 0.04-0.54 BASOPHILS ABSOLUTE COUNT (BEAKER) (test bqhw=717) 0.18 K/ L 0.01-0.08 IMMATURE GRANULOCYTES-RELATIVE PERCENT (BEAKER) (test kwpb=1152) 1 % 0-1 CT, CTANGIO [id number] 01:28:00FINAL REPORT CT, CTANGIO BRAINBRAIN CT WITHOUT CONTRAST INDICATION: Cerebral hemorrhage suspectedevaluate for underlying vessel abnormalities for ICH COMPARISON: Serial CT brain examinations dated September 07, 2017 TECHNIQUE:Rapid acquisition spiral images were obtained between the skull base and the cranial vertex during intravenous contrast infusion to reconstruct axial images and angiographic 3D maximum intensity projections (MIP). 3-D volumetric reformatted images were created at a dedicated workstation. Precontrast images of the brain were also obtained. DOSE REDUCTION: Dose modulation, iterative reconstruction, and/or weight-based adjustment of the mA/kV was utilized to reduce the radiation dose to as low as reasonably achievable. FINDINGS:NECT BRAIN:No interval change in appearance of previously described hyperattenuating lesion in the left frontal lobe. Small volume subarachnoid blood in this region is also present. The degree of vasogenic edema is unchanged. Remaining parenchymal structures are stable. No new hemorrhage, midline shift or infarct. Stable osseous structures. CTA BRAIN:Scattered calcific atherosclerosis is present without major branch occ lusion, flow-limiting stenosis or aneurysmal dilation within the intracranial ci rculation. Venous structures are normal for bolus timing. With regard to the afo rementioned left frontal lobe lesion, there is questionable cortical branch conn ection to the lesion. No draining vein is evident. IMPRESSION: Stable intracran ial appearance compared to the prior date. No extension of previously noted suba rachnoid blood or expansion is appearance of the hemorrhagic lesion. 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 No draining vein is identified. Signed: JR Humphreys Robert MDReport Verified Date/Time: 09/08/2017 01:28:42 Reading Location: [address] Reading Room /[id number] 11:35:00* Test Item Value Reference Range Comments PROTIME (BEAKER) (test xqwd=338) 20.7 seconds 11.7-14.7 INR (BEAKER) (test xrrr=561) 1.8 <=5.9 PARTIAL THROMBOPLASTIN TIME (BEAKER) (test rovw=562) 44.2 seconds 22.5-36.0 RECOMMENDED COUMADIN/WARFARIN INR THERAPY RANGESSTANDARD DOSE: 2.0 - 3.0 Inclu navid: PROPHYLAXIS for venous thrombosis, systemic embolization; TREATMENT for dayna ous thrombosis and/or pulmonary embolus.HIGH RISK: Target INR is 2.5-3.5 for pat ients with mechanical heart valves.CT, BRAIN, WITHOUT [id number] 09:14:00FINAL REPORT CT Head without contrast CLINICAL HISTORY: Headache, SAH suspected TECHNIQUE: Contiguous axial images through the head without contrast. This exam was performed according to the departmental dose optimization program which includes automated exposure control, adjustment of the mA and/or kV according to the patient size, and/or use of an iterative reconstruction technique. COMPARISON: 09/07/2017 FINDINGS: Parenchymal and subarachnoid hemorrhage is again seen in the left mid frontal lobe region. The parenchymal component and again has a somewhat rounded configuration measuring approximately 1 cm. There is no other CT evidence for acute infarct or hemorrhage elsewhere in the brain. There is mild periventricular and subcortical white matter hypodensity which is nonspecific but compatible with chronic microvascular ischemic change. There are atherosclerotic calcifications of the intracranial circulation. There is generalized parenchymal volume loss without hydrocephalus, midline shift, or apparent mass effect. There are no extra-axial fluid collections. The skull is intact. The visualized paranasal sinuses are well-aerated. IMPRESSION: Since earlier today, focal parenchymal and subarachnoid hemorrhage in the left mid frontal region is unchanged. A hemorrhagic mass or vascular abnormality cannot be excluded. Clinical correlation is requested. Signed: Shonda Mahoney MDReport Verified Date/Time: 09/07/2017 09:14:22 Reading Location: [facility] Radiology Reading Room E [id number] 08:27:00* Test Item Value Reference Range Comments CULTURE (BEAKER) (test kblx=5637) See comment Amikacin (test code=1) Aztreonam (test code=32) Cefepime (test code=51) Cefoxitin (test code=68) Ceftazidime (test code=27) Ceftriaxone (test code=52) Ertapenem (test code=38) Gentamicin (test code=18) Levofloxacin (test code=22) Meropenem (test code=34) Nitrofurantoin (test code=23) Piperacillin + Tazobactam (test code=29) Tetracycline (test code=2) Tobramycin (test code=25) Trimethoprim + Sulfamethoxazole (test code=47) CULTURE (BEAKER) (test ycmb=7919) ESCHERICHIA COLI >100,000 col/mL Citrobacter farmeri Amikacin (test code=1) Ampicillin + Sulbactam (test code=6) Aztreonam (test code=32) Cefepime (test code=51) Cefoxitin (test code=68) Ceftazidime (test code=27) Ceftriaxone (test code=52) Ertapenem (test code=38) Gentamicin (test code=18) Levofloxacin (test code=22) Meropenem (test code=34) Nitrofurantoin (test code=23) Piperacillin + Tazobactam (test code=29) Tetracycline (test code=2) Tobramycin (test code=25) Trimethoprim + Sulfamethoxazole (test code=47) CULTURE (BEAKER) (test wxvh=5909) >100,000 col/mL Escherichia coli CULTURE (BEAKER) (test qqbl=7082) PSEUDOMONAS AERUGINOSA >100,000 col/mL Pseudomonas aeruginosaof a second type Amikacin (test code=1) Susceptible 0-16 , Resistant <0 or >16 Aztreonam (test code=32) Susceptible 0-8 , Resistant <0 or >8 Cefepime (test code=51) Susceptible 0-8 , Resistant <0 or >8 Ceftazidime (test code=27) Susceptible 0-8 , Resistant <0 or >8 Ciprofloxacin (test code=7) Susceptible 0-1 , Resistant <0 or >1 Doripenem (test zuqz=800) Susceptible 0-2 , Resistant <0 or >2 Gentamicin (test code=18) Susceptible 0-4 , Resistant <0 or >4 Imipenem (test code=19) Susceptible 0-2 , Resistant <0 or >2 Levofloxacin (test code=22) Susceptible 0-2 , Resistant <0 or >2 Meropenem (test code=34) Susceptible 0-2 , Resistant <0 or >2 Piperacillin (test code=24) Susceptible 0-16 , Resistant <0 or >16 Piperacillin + Tazobactam (test code=29) Susceptible 0-16 , Resistant <0 or >16 Tobramycin (test code=25) Susceptible 0-4 , Resistant <0 or >4 CULTURE (BEAKER) (test nvar=1305) KLEBSIELLA PNEUMONIAE SSP PNEUMONIAE >100,000 col/mL Klebsiella pneumoniae ssp pneumoniaeof a second type Amikacin (test code=1) Ampicillin + Sulbactam (test code=6) Aztreonam (test code=32) Cefepime (test code=51) Cefoxitin (test code=68) Ceftazidime (test code=27) Ceftriaxone (test code=52) Ertapenem (test code=38) Gentamicin (test code=18) Levofloxacin (test code=22) Meropenem (test code=34) Nitrofurantoin (test code=23) Piperacillin + Tazobactam (test code=29) Tetracycline (test code=2) Tobramycin (test code=25) Trimethoprim + Sulfamethoxazole (test code=47) GRAM STAIN RESULT (BEAKER) (test zoxr=5275) No WBCs GRAM STAIN RESULT (BEAKER) (test orik=[id number]) 1+ gram variable rods PROTHROMBIN TIME/[id number] 08:03:00* Test Item Value Reference Range Comments PROTIME (BEAKER) (test ysuy=603) 20.1 seconds 11.7-14.7 INR (BEAKER) (test togg=895) 1.7 <=5.9 RECOMMENDED COUMADIN/WARFARIN INR THERAPY RANGESSTANDARD DOSE: 2.0 - 3.0 Inclu navid: PROPHYLAXIS for venous thrombosis, systemic embolization; TREATMENT for dayna ous thrombosis and/or pulmonary embolus.HIGH RISK: Target INR is 2.5-3.5 for pat ients with mechanical heart valves.HEPATIC FUNCTION [id number] 05:46:00* Test Item Value Reference Range Comments TOTAL PROTEIN (BEAKER) (test asvx=825) 6.8 gm/dL 6.0-8.3 ALBUMIN (BEAKER) (test ygum=2746) 2.7 g/dL 3.5-5.0 BILIRUBIN TOTAL (BEAKER) (test iovl=260) 0.6 mg/dL 0.2-1.2 BILIRUBIN DIRECT (BEAKER) (test ikmg=319) 0.5 mg/dL 0.1-0.5 ALKALINE PHOSPHATASE (BEAKER) (test ftpa=432) 154 U/L 40-150 AST (SGOT) (BEAKER) (test siun=724) 33 U/L 5-34 ALT (SGPT) (BEAKER) (test jdch=956) 22 U/L 6-55 BASIC METABOLIC [id number] 05:46:00* Test Item Value Reference Range Comments SODIUM (BEAKER) (test sgsd=628) 134 meq/L 136-145 POTASSIUM (BEAKER) (test ttdz=763) 4.9 meq/L 3.5-5.1 CHLORIDE (BEAKER) (test grlq=733) 99 meq/L 98-107 CO2 (BEAKER) (test osqh=630) 28 meq/L 22-29 BLOOD UREA NITROGEN (BEAKER) (test naiq=816) 52 mg/dL 7-21 CREATININE (BEAKER) (test bcpy=249) 1.08 mg/dL 0.57-1.25 GLUCOSE RANDOM (BEAKER) (test fsxj=063) 108 mg/dL 70-105 CALCIUM (BEAKER) (test gwrl=529) 9.0 mg/dL 8.4-10.2 EGFR (BEAKER) (test ksgy=6934) 66 mL/min/1.73 sq m ESTIMATED GFR IS NOT ACCURATE CREATININE CLEARANCE IN PREDICTING GLOMERULAR FILTRATION RATE. ESTIMATED GFR IS NOT APPLICABLE FOR DIALYSIS PATIENTS. PROTHROMBIN TIME/[id number] 05:42:00* Test Item Value Reference Range Comments PROTIME (BEAKER) (test avyy=047) 20.4 seconds 11.7-14.7 INR (BEAKER) (test awmh=781) 1.7 <=5.9 RECOMMENDED COUMADIN/WARFARIN INR THERAPY RANGESSTANDARD DOSE: 2.0 - 3.0 Inclu navid: PROPHYLAXIS for venous thrombosis, systemic embolization; TREATMENT for dayna ous thrombosis and/or pulmonary embolus.HIGH RISK: Target INR is 2.5-3.5 for pat ients with mechanical heart valves.While on warfarin.CBC (HEMOGRAM ONLY) 2017-09-07 05:31:00* Test Item Value Reference Range Comments WHITE BLOOD CELL COUNT (BEAKER) (test vylo=813) 15.4 K/ L 3.5-10.5 RED BLOOD CELL COUNT (BEAKER) (test joer=512) 3.26 M/ L 4.63-6.08 HEMOGLOBIN (BEAKER) (test muht=693) 8.9 GM/DL 13.7-17.5 HEMATOCRIT (BEAKER) (test utcd=679) 28.1 % 40.1-51.0 MEAN CORPUSCULAR VOLUME (BEAKER) (test irmw=995) 86.2 fL 79.0-92.2 MEAN CORPUSCULAR HEMOGLOBIN (BEAKER) (test jero=656) 27.3 pg 25.7-32.2 MEAN CORPUSCULAR HEMOGLOBIN CONC (BEAKER) (test alue=678) 31.7 GM/DL 32.3-36.5 RED CELL DISTRIBUTION WIDTH (BEAKER) (test iyyw=546) 18.9 % 11.6-14.4 PLATELET COUNT (BEAKER) (test jdyl=030) 399 K/CU MM 150-450 MEAN PLATELET VOLUME (BEAKER) (test tzny=900) 9.4 fL 9.4-12.4 NUCLEATED RED BLOOD CELLS (BEAKER) (test yaxq=007) 0 /100 WBC 0-0 CT, BRAIN, WITHOUT [id number] 02:50:00FINAL REPORT CT, BRAIN, WITHOUT CONTRAST CLINICAL INDICATION: headache, altered mental status COMPARISON: June 27, 2017 TECHNIQUE: Noncontrast axial CT imaging of the brain and skull. DOSE REDUCTION: Dose modulation, iterative reconstruction, and/or weight-based adjustment of the mA/kV was utilized to reduce the radiation dose to as low as reasonably achievable. FINDINGS:Rounded hyperattenuation within the left middle frontal gyrus posteriorly measuring 1.3 x 1.1 cm. Minimal adjacent vasogenic edema. Redemonstration of moderate volume loss. Alaniz-white distinction is preserved in the basal ganglia. No hydrocephalus or midline shift. Questionable trace extra-axial blood adjacent to the aforementioned lesion. Calvarium is intact. Orbital contents are unremarkable for technique. Dense calcific atherosclerosis is present. IMPRESSION: Hyperatt enuating lesion in the left middle gyrus concerning for parenchymal hemorrhage. Questionable subarachnoid extension. Hemorrhagic or hypercellular metastatic foc us is not excluded. Findings communicated to the patient's nurse at the time of dictation. Signed: JR Humphreys Robert MDReport Verified Date/Time: 2017 02:50:06 Reading Location: [address] Reading Room [facility] signed by: MARTHA HUMPHREYS on 09/07/2017 02:50 AM RAD, CHEST, 2 [id number] 02:47:00Reason for exam:->coughFINAL REPORT RAD, CHEST, 2 VIEWS INDICATION: cough COMPARISON: Chest x-ray 2 days ago TECHNIQUE: Frontal and lateral views of the chest. FINDINGS: Stable PICC line and LVAD device.Cardiomediastinal silhouette within normal limits.Stable dense opacification at the left lung base likely reflecting a combination of pleural fluid and adjacent airspace disease.No acute osseous abnormality. IMPRESSION:Stable left lung base pleural effusion and adjacent airspace disease, atelectatic versus pneumonic. Signed: Audi Beasley MDReport Verified Date/Time: 09/07/2017 02:47:37 Reading Location: [facility] C013X [facility] Reading Room 02 :47 AM [id number] 23:30:00* Test Item Value Reference Range Comments PARTIAL THROMBOPLASTIN TIME (BEAKER) (test amoi=700) 102.8 seconds 22.5-36.0 [id number] 16:55:00* Test Item Value Reference Range Comments PARTIAL THROMBOPLASTIN TIME (BEAKER) (test axsm=796) 79.0 seconds 22.5-36.0 [id number] 09:02:00* Test Item Value Reference Range Comments PARTIAL THROMBOPLASTIN TIME (BEAKER) (test ezlw=399) 105.4 seconds 22.5-36.0 [id number] 05:38:00* Test Item Value Reference Range Comments MAGNESIUM (BEAKER) (test hxdx=893) 2.4 mg/dL 1.6-2.6 BASIC METABOLIC [id number] 05:38:00* Test Item Value Reference Range Comments SODIUM (BEAKER) (test wtgs=179) 135 meq/L 136-145 POTASSIUM (BEAKER) (test mlql=293) 4.1 meq/L 3.5-5.1 CHLORIDE (BEAKER) (test zmxx=429) 99 meq/L 98-107 CO2 (BEAKER) (test tnny=022) 28 meq/L 22-29 BLOOD UREA NITROGEN (BEAKER) (test litf=866) 48 mg/dL 7-21 CREATININE (BEAKER) (test bbpy=158) 1.04 mg/dL 0.57-1.25 GLUCOSE RANDOM (BEAKER) (test ctwo=986) 121 mg/dL 70-105 CALCIUM (BEAKER) (test sboi=728) 9.0 mg/dL 8.4-10.2 EGFR (BEAKER) (test vetn=3741) 69 mL/min/1.73 sq m ESTIMATED GFR IS NOT ACCURATE CREATININE CLEARANCE IN PREDICTING GLOMERULAR FILTRATION RATE. ESTIMATED GFR IS NOT APPLICABLE FOR DIALYSIS PATIENTS. PROTHROMBIN TIME/[id number] 05:34:00* Test Item Value Reference Range Comments PROTIME (BEAKER) (test exfz=916) 18.1 seconds 11.7-14.7 INR (BEAKER) (test riqr=632) 1.5 <=5.9 RECOMMENDED COUMADIN/WARFARIN INR THERAPY RANGESSTANDARD DOSE: 2.0 - 3.0 Inclu navid: PROPHYLAXIS for venous thrombosis, systemic embolization; TREATMENT for dayna ous thrombosis and/or pulmonary embolus.HIGH RISK: Target INR is 2.5-3.5 for pat ients with mechanical heart valves.While on warfarin.CBC (HEMOGRAM ONLY) 2017-09-06 05:14:00* Test Item Value Reference Range Comments WHITE BLOOD CELL COUNT (BEAKER) (test scyt=538) 17.7 K/ L 3.5-10.5 RED BLOOD CELL COUNT (BEAKER) (test yway=535) 3.45 M/ L 4.63-6.08 HEMOGLOBIN (BEAKER) (test nigw=218) 9.5 GM/DL 13.7-17.5 HEMATOCRIT (BEAKER) (test lzfd=789) 29.8 % 40.1-51.0 MEAN CORPUSCULAR VOLUME (BEAKER) (test drzx=547) 86.4 fL 79.0-92.2 MEAN CORPUSCULAR HEMOGLOBIN (BEAKER) (test erck=409) 27.5 pg 25.7-32.2 MEAN CORPUSCULAR HEMOGLOBIN CONC (BEAKER) (test isrw=042) 31.9 GM/DL 32.3-36.5 RED CELL DISTRIBUTION WIDTH (BEAKER) (test tptw=653) 19.1 % 11.6-14.4 PLATELET COUNT (BEAKER) (test ocgx=744) 420 K/CU MM 150-450 MEAN PLATELET VOLUME (BEAKER) (test xhrc=768) 9.6 fL 9.4-12.4 NUCLEATED RED BLOOD CELLS (BEAKER) (test eftm=261) 0 /100 WBC 0-0 URINALYSIS W/ REFLEX URINE [id number] 02:59:00* Test Item Value Reference Range Comments COLOR (BEAKER) (test pssn=636) Light Yellow CLARITY (BEAKER) (test hnea=806) Clear SPECIFIC GRAVITY UA (BEAKER) (test urbn=422) 1.006 1.001-1.035 PH UA (BEAKER) (test okuz=708) 7.0 5.0-8.0 PROTEIN UA (BEAKER) (test eigi=641) Negative Negative GLUCOSE UA (BEAKER) (test vaxb=326) Negative Negative KETONES UA (BEAKER) (test mauy=117) Negative Negative BILIRUBIN UA (BEAKER) (test hmst=799) Negative Negative BLOOD UA (BEAKER) (test pqll=691) Negative Negative NITRITE UA (BEAKER) (test jwnn=856) Negative Negative LEUKOCYTE ESTERASE UA (BEAKER) (test asrx=433) Small Negative UROBILINOGEN UA (BEAKER) (test ibeh=152) 0.2 mg/dL 0.2-1.0 RBC UA (BEAKER) (test iqll=851) < /HPF WBC UA (BEAKER) (test qcyu=803) 25 /HPF SQUAMOUS EPITHELIAL (BEAKER) (test xtog=312) 1 /HPF AMORPHOUS CRYSTALS (BEAKER) (test lrwj=3085) Rare SOURCE(BEAKER) (test abxi=0045) [id number] 00:47:00* Test Item Value Reference Range Comments PARTIAL THROMBOPLASTIN TIME (BEAKER) (test eozn=045) 63.5 seconds 22.5-36.0 [id number] 15:47:00* Test Item Value Reference Range Comments PARTIAL THROMBOPLASTIN TIME (BEAKER) (test bezx=809) 69.3 seconds 22.5-36.0 [id number] 13:06:00* Test Item Value Reference Range Comments FERRITIN (BEAKER) (test wlee=867) 1395 ng/mL 5-275 IRON, TIBC, % SAT. (WITHOUT FERRITIN)2017-09-05 12:45:00* Test Item Value Reference Range Comments IRON (BEAKER) (test imwf=360) 25 ug/dL 40-160 TOTAL IRON BINDING CAPACITY (BEAKER) (test wrbq=636) 189 ug/dL 250-450 IRON % SATURATION (2) (BEAKER) (test whpe=8895) 13 % 20-55 URIC [id number] 07:11:00* Test Item Value Reference Range Comments URIC ACID (BEAKER) (test nlvh=260) 6.0 mg/dL 2.6-7.2 BASIC METABOLIC [id number] 07:11:00* Test Item Value Reference Range Comments SODIUM (BEAKER) (test sjlk=417) 134 meq/L 136-145 POTASSIUM (BEAKER) (test mpad=728) 4.2 meq/L 3.5-5.1 CHLORIDE (BEAKER) (test eodx=478) 98 meq/L 98-107 CO2 (BEAKER) (test awze=038) 27 meq/L 22-29 BLOOD UREA NITROGEN (BEAKER) (test hwrm=690) 49 mg/dL 7-21 CREATININE (BEAKER) (test bzpd=050) 0.99 mg/dL 0.57-1.25 GLUCOSE RANDOM (BEAKER) (test akmm=628) 100 mg/dL 70-105 CALCIUM (BEAKER) (test rhtw=650) 8.7 mg/dL 8.4-10.2 EGFR (BEAKER) (test xfnn=3192) 73 mL/min/1.73 sq m ESTIMATED GFR IS NOT ACCURATE CREATININE CLEARANCE IN PREDICTING GLOMERULAR FILTRATION RATE. ESTIMATED GFR IS NOT APPLICABLE FOR DIALYSIS PATIENTS. [id number] 06:32:00* Test Item Value Reference Range Comments PARTIAL THROMBOPLASTIN TIME (BEAKER) (test vrap=976) 49.0 seconds 22.5-36.0 Pt on heparin dripWhile on warfarin.PROTHROMBIN TIME/[id number] 06:31:00* Test Item Value Reference Range Comments PROTIME (BEAKER) (test gfbm=978) 17.8 seconds 11.7-14.7 INR (BEAKER) (test jxbk=755) 1.5 <=5.9 RECOMMENDED COUMADIN/WARFARIN INR THERAPY RANGESSTANDARD DOSE: 2.0 - 3.0 Inclu navid: PROPHYLAXIS for venous thrombosis, systemic embolization; TREATMENT for dayna ous thrombosis and/or pulmonary embolus.HIGH RISK: Target INR is 2.5-3.5 for pat ients with mechanical heart valves.Pt on heparin dripWhile on warfarin.CBC (HEMOGRAM ONLY)2017-09-05 06:20:00* Test Item Value Reference Range Comments WHITE BLOOD CELL COUNT (BEAKER) (test knnm=309) 16.5 K/ L 3.5-10.5 RED BLOOD CELL COUNT (BEAKER) (test ofeu=714) 2.94 M/ L 4.63-6.08 HEMOGLOBIN (BEAKER) (test vsja=611) 7.9 GM/DL 13.7-17.5 HEMATOCRIT (BEAKER) (test yfay=502) 25.4 % 40.1-51.0 MEAN CORPUSCULAR VOLUME (BEAKER) (test lxpr=321) 86.4 fL 79.0-92.2 MEAN CORPUSCULAR HEMOGLOBIN (BEAKER) (test lidg=051) 26.9 pg 25.7-32.2 MEAN CORPUSCULAR HEMOGLOBIN CONC (BEAKER) (test tdhx=211) 31.1 GM/DL 32.3-36.5 RED CELL DISTRIBUTION WIDTH (BEAKER) (test aajc=625) 19.6 % 11.6-14.4 PLATELET COUNT (BEAKER) (test mrqu=212) 399 K/CU MM 150-450 MEAN PLATELET VOLUME (BEAKER) (test uybq=297) 9.6 fL 9.4-12.4 NUCLEATED RED BLOOD CELLS (BEAKER) (test ypfk=808) 0 /100 WBC 0-0 RAD, CHEST, 1 VIEW, NON [id number] 10:35:00Reason for exam:->leukocytosis, rule out PNAShould this be performed at the bedside?->YesFINAL REPORT CLINICAL HISTORY: leukocytosis, rule out PNA TECHNIQUE: 1 view of the chest. COMPARISON: 3118 IMPRESSION: Left lower lung consolidation and a small left pleural effusion are unchanged. A trace right effusion is increased. The cardiomediastinal silhouette is magnified by technique with sternotomy wires, pacemaker, and LVAD. A right PICC line is unchanged. Signed: Shonda Mahoney MDReport Verified Date/Time: 09/04/2017 10:35:03 Reading Location: [facility] Reading Room [id number] 07:18:00* Test Item Value Reference Range Comments MAGNESIUM (BEAKER) (test rphv=195) 2.1 mg/dL 1.6-2.6 BASIC METABOLIC [id number] 07:18:00* Test Item Value Reference Range Comments SODIUM (BEAKER) (test ljci=797) 134 meq/L 136-145 POTASSIUM (BEAKER) (test kdgv=475) 4.3 meq/L 3.5-5.1 CHLORIDE (BEAKER) (test thef=723) 97 meq/L 98-107 CO2 (BEAKER) (test kvsc=934) 27 meq/L 22-29 BLOOD UREA NITROGEN (BEAKER) (test brfc=249) 48 mg/dL 7-21 CREATININE (BEAKER) (test hpce=335) 1.01 mg/dL 0.57-1.25 GLUCOSE RANDOM (BEAKER) (test jefq=617) 89 mg/dL 70-105 CALCIUM (BEAKER) (test nzvo=490) 9.0 mg/dL 8.4-10.2 EGFR (BEAKER) (test forc=3040) 71 mL/min/1.73 sq m ESTIMATED GFR IS NOT ACCURATE CREATININE CLEARANCE IN PREDICTING GLOMERULAR FILTRATION RATE. ESTIMATED GFR IS NOT APPLICABLE FOR DIALYSIS PATIENTS. HEPATIC FUNCTION [id number] 07:18:00* Test Item Value Reference Range Comments TOTAL PROTEIN (BEAKER) (test xxwr=885) 6.7 gm/dL 6.0-8.3 ALBUMIN (BEAKER) (test xakd=5308) 2.7 g/dL 3.5-5.0 BILIRUBIN TOTAL (BEAKER) (test qmbt=024) 0.7 mg/dL 0.2-1.2 BILIRUBIN DIRECT (BEAKER) (test jnyr=268) 0.5 mg/dL 0.1-0.5 ALKALINE PHOSPHATASE (BEAKER) (test davt=157) 142 U/L 40-150 AST (SGOT) (BEAKER) (test wcqk=532) 31 U/L 5-34 ALT (SGPT) (BEAKER) (test wlrh=025) 21 U/L 6-55 LACTATE DEHYDROGENASE (LDH)2017-09-04 07:18:00* Test Item Value Reference Range Comments LACTATE DEHYDROGENASE (BEAKER) (test jpzi=941) 291 U/L 125-220 [id number] 07:06:00* Test Item Value Reference Range Comments PARTIAL THROMBOPLASTIN TIME (BEAKER) (test zlqb=701) 75.2 seconds 22.5-36.0 Pt on heparin dripWhile on warfarin.PROTHROMBIN TIME/[id number] 07:04:00* Test Item Value Reference Range Comments PROTIME (BEAKER) (test kcoq=559) 16.9 seconds 11.7-14.7 INR (BEAKER) (test ucst=752) 1.4 <=5.9 RECOMMENDED COUMADIN/WARFARIN INR THERAPY RANGESSTANDARD DOSE: 2.0 - 3.0 Inclu navid: PROPHYLAXIS for venous thrombosis, systemic embolization; TREATMENT for dayna ous thrombosis and/or pulmonary embolus.HIGH RISK: Target INR is 2.5-3.5 for pat ients with mechanical heart valves.Pt on heparin dripWhile on warfarin.CBC (HEMOGRAM ONLY)2017-09-04 06:37:00* Test Item Value Reference Range Comments WHITE BLOOD CELL COUNT (BEAKER) (test edbi=859) 16.1 K/ L 3.5-10.5 RED BLOOD CELL COUNT (BEAKER) (test fqal=159) 2.95 M/ L 4.63-6.08 HEMOGLOBIN (BEAKER) (test pyrk=611) 8.2 GM/DL 13.7-17.5 HEMATOCRIT (BEAKER) (test aumf=646) 25.6 % 40.1-51.0 MEAN CORPUSCULAR VOLUME (BEAKER) (test zniu=652) 86.8 fL 79.0-92.2 MEAN CORPUSCULAR HEMOGLOBIN (BEAKER) (test qmid=891) 27.8 pg 25.7-32.2 MEAN CORPUSCULAR HEMOGLOBIN CONC (BEAKER) (test lghu=733) 32.0 GM/DL 32.3-36.5 RED CELL DISTRIBUTION WIDTH (BEAKER) (test rwub=967) 19.9 % 11.6-14.4 PLATELET COUNT (BEAKER) (test rwbg=159) 426 K/CU MM 150-450 MEAN PLATELET VOLUME (BEAKER) (test locb=229) 10.1 fL 9.4-12.4 NUCLEATED RED BLOOD CELLS (BEAKER) (test rezj=264) 0 /100 WBC 0-0 OCCULT BLOOD, [id number] 04:43:00* Test Item Value Reference Range Comments FECAL OCCULT BLOOD (BEAKER) (test hhcl=589) Negative Negative [id number] 23:07:00* Test Item Value Reference Range Comments PARTIAL THROMBOPLASTIN TIME (BEAKER) (test reml=774) 68.1 seconds 22.5-36.0 [id number] 13:06:00* Test Item Value Reference Range Comments PARTIAL THROMBOPLASTIN TIME (BEAKER) (test iesm=887) 69.9 seconds 22.5-36.0 [id number] 05:45:00* Test Item Value Reference Range Comments PARTIAL THROMBOPLASTIN TIME (BEAKER) (test oxxl=459) 94.9 seconds 22.5-36.0 Pt on heparin dripWhile on warfarin.PROTHROMBIN TIME/[id number] 05:42:00* Test Item Value Reference Range Comments PROTIME (BEAKER) (test sznd=161) 17.6 seconds 11.7-14.7 INR (BEAKER) (test llbe=334) 1.5 <=5.9 RECOMMENDED COUMADIN/WARFARIN INR THERAPY RANGESSTANDARD DOSE: 2.0 - 3.0 Inclu navid: PROPHYLAXIS for venous thrombosis, systemic embolization; TREATMENT for dayna ous thrombosis and/or pulmonary embolus.HIGH RISK: Target INR is 2.5-3.5 for pat ients with mechanical heart valves.Pt on heparin dripWhile on warfarin.CBC (HEMOGRAM ONLY)2017-09-03 05:32:00* Test Item Value Reference Range Comments WHITE BLOOD CELL COUNT (BEAKER) (test maji=162) 14.2 K/ L 3.5-10.5 RED BLOOD CELL COUNT (BEAKER) (test wcxa=831) 2.91 M/ L 4.63-6.08 HEMOGLOBIN (BEAKER) (test gbyg=179) 8.0 GM/DL 13.7-17.5 HEMATOCRIT (BEAKER) (test zflt=630) 25.3 % 40.1-51.0 MEAN CORPUSCULAR VOLUME (BEAKER) (test xlqs=547) 86.9 fL 79.0-92.2 MEAN CORPUSCULAR HEMOGLOBIN (BEAKER) (test uhmv=174) 27.5 pg 25.7-32.2 MEAN CORPUSCULAR HEMOGLOBIN CONC (BEAKER) (test wxya=257) 31.6 GM/DL 32.3-36.5 RED CELL DISTRIBUTION WIDTH (BEAKER) (test rtwz=521) 19.9 % 11.6-14.4 PLATELET COUNT (BEAKER) (test vpek=770) 387 K/CU MM 150-450 MEAN PLATELET VOLUME (BEAKER) (test nypk=073) 9.5 fL 9.4-12.4 NUCLEATED RED BLOOD CELLS (BEAKER) (test gzyc=641) 0 /100 WBC 0-0 [id number] 05:57:00* Test Item Value Reference Range Comments PARTIAL THROMBOPLASTIN TIME (BEAKER) (test tanz=865) 77.4 seconds 22.5-36.0 While on warfarin.PROTHROMBIN TIME/[id number] 05:55:00* Test Item Value Reference Range Comments PROTIME (BEAKER) (test zzts=069) 17.0 seconds 11.7-14.7 INR (BEAKER) (test mbks=463) 1.4 <=5.9 RECOMMENDED COUMADIN/WARFARIN INR THERAPY RANGESSTANDARD DOSE: 2.0 - 3.0 Inclu navid: PROPHYLAXIS for venous thrombosis, systemic embolization; TREATMENT for dayna ous thrombosis and/or pulmonary embolus.HIGH RISK: Target INR is 2.5-3.5 for pat ients with mechanical heart valves.While on warfarin.CBC (HEMOGRAM ONLY) 2017-09-02 05:44:00* Test Item Value Reference Range Comments WHITE BLOOD CELL COUNT (BEAKER) (test nqqs=133) 12.8 K/ L 3.5-10.5 RED BLOOD CELL COUNT (BEAKER) (test kbfr=358) 2.92 M/ L 4.63-6.08 HEMOGLOBIN (BEAKER) (test iqoi=469) 8.0 GM/DL 13.7-17.5 HEMATOCRIT (BEAKER) (test csbo=629) 25.1 % 40.1-51.0 MEAN CORPUSCULAR VOLUME (BEAKER) (test gyqr=847) 86.0 fL 79.0-92.2 MEAN CORPUSCULAR HEMOGLOBIN (BEAKER) (test kuux=042) 27.4 pg 25.7-32.2 MEAN CORPUSCULAR HEMOGLOBIN CONC (BEAKER) (test gyen=497) 31.9 GM/DL 32.3-36.5 RED CELL DISTRIBUTION WIDTH (BEAKER) (test lcdv=885) 20.0 % 11.6-14.4 PLATELET COUNT (BEAKER) (test zfif=316) 389 K/CU MM 150-450 MEAN PLATELET VOLUME (BEAKER) (test mclg=271) 9.5 fL 9.4-12.4 NUCLEATED RED BLOOD CELLS (BEAKER) (test bykv=504) 0 /100 WBC 0-0 [id number] 23:23:00* Test Item Value Reference Range Comments PARTIAL THROMBOPLASTIN TIME (BEAKER) (test oixf=904) 77.6 seconds 22.5-36.0 [id number] 15:13:00* Test Item Value Reference Range Comments PROTIME (BEAKER) (test fqbs=952) 17.2 seconds 11.7-14.7 INR (BEAKER) (test tewa=561) 1.4 <=5.9 PARTIAL THROMBOPLASTIN TIME (BEAKER) (test hbxh=869) 90.2 seconds 22.5-36.0 RECOMMENDED COUMADIN/WARFARIN INR THERAPY RANGESSTANDARD DOSE: 2.0 - 3.0 Inclu navid: PROPHYLAXIS for venous thrombosis, systemic embolization; TREATMENT for dayna ous thrombosis and/or pulmonary embolus.HIGH RISK: Target INR is 2.5-3.5 for pat ients with mechanical heart valves.CBC W/PLT COUNT & AUTO [id number] 08:41:00* Test Item Value Reference Range Comments WHITE BLOOD CELL COUNT (BEAKER) (test bouj=358) 11.5 K/ L 3.5-10.5 RED BLOOD CELL COUNT (BEAKER) (test fjml=952) 2.91 M/ L 4.63-6.08 HEMOGLOBIN (BEAKER) (test cigw=723) 8.0 GM/DL 13.7-17.5 HEMATOCRIT (BEAKER) (test scgn=258) 25.6 % 40.1-51.0 MEAN CORPUSCULAR VOLUME (BEAKER) (test cfuh=951) 88.0 fL 79.0-92.2 MEAN CORPUSCULAR HEMOGLOBIN (BEAKER) (test jict=915) 27.5 pg 25.7-32.2 MEAN CORPUSCULAR HEMOGLOBIN CONC (BEAKER) (test prrk=588) 31.3 GM/DL 32.3-36.5 RED CELL DISTRIBUTION WIDTH (BEAKER) (test xpvv=833) 20.2 % 11.6-14.4 PLATELET COUNT (BEAKER) (test jrde=841) 369 K/CU MM 150-450 MEAN PLATELET VOLUME (BEAKER) (test qkrw=898) 10.0 fL 9.4-12.4 NUCLEATED RED BLOOD CELLS (BEAKER) (test fcea=746) 0 /100 WBC 0-0 NEUTROPHILS RELATIVE PERCENT (BEAKER) (test qmef=577) 58 % LYMPHOCYTES RELATIVE PERCENT (BEAKER) (test kbwc=427) 17 % MONOCYTES RELATIVE PERCENT (BEAKER) (test ldsg=893) 12 % EOSINOPHILS RELATIVE PERCENT (BEAKER) (test qhkg=826) 11 % BASOPHILS RELATIVE PERCENT (BEAKER) (test dudc=079) 1 % NEUTROPHILS ABSOLUTE COUNT (BEAKER) (test vpqi=955) 6.65 K/ L 1.78-5.38 LYMPHOCYTES ABSOLUTE COUNT (BEAKER) (test qyvp=356) 1.97 K/ L 1.32-3.57 MONOCYTES ABSOLUTE COUNT (BEAKER) (test mtdf=882) 1.37 K/ L 0.30-0.82 EOSINOPHILS ABSOLUTE COUNT (BEAKER) (test ubkg=541) 1.30 K/ L 0.04-0.54 BASOPHILS ABSOLUTE COUNT (BEAKER) (test hjfe=213) 0.13 K/ L 0.01-0.08 IMMATURE GRANULOCYTES-RELATIVE PERCENT (BEAKER) (test avvz=6174) 1 % 0-1 [id number] 08:27:00* Test Item Value Reference Range Comments MAGNESIUM (BEAKER) (test qniu=284) 1.8 mg/dL 1.6-2.6 BASIC METABOLIC [id number] 08:27:00* Test Item Value Reference Range Comments SODIUM (BEAKER) (test bfez=127) 137 meq/L 136-145 POTASSIUM (BEAKER) (test arwh=849) 4.6 meq/L 3.5-5.1 CHLORIDE (BEAKER) (test fvhf=317) 103 meq/L 98-107 CO2 (BEAKER) (test zjcj=491) 26 meq/L 22-29 BLOOD UREA NITROGEN (BEAKER) (test qifn=469) 41 mg/dL 7-21 CREATININE (BEAKER) (test elze=186) 0.89 mg/dL 0.57-1.25 GLUCOSE RANDOM (BEAKER) (test wxlr=050) 85 mg/dL 70-105 CALCIUM (BEAKER) (test wwwa=598) 8.7 mg/dL 8.4-10.2 EGFR (BEAKER) (test ozaz=8600) 82 mL/min/1.73 sq m ESTIMATED GFR IS NOT ACCURATE CREATININE CLEARANCE IN PREDICTING GLOMERULAR FILTRATION RATE. ESTIMATED GFR IS NOT APPLICABLE FOR DIALYSIS PATIENTS. [id number] 08:25:00* Test Item Value Reference Range Comments MAGNESIUM (BEAKER) (test pqdx=780) 1.8 mg/dL 1.6-2.6 BASIC METABOLIC [id number] 08:25:00* Test Item Value Reference Range Comments SODIUM (BEAKER) (test sfwa=008) 135 meq/L 136-145 POTASSIUM (BEAKER) (test mjcp=377) 4.3 meq/L 3.5-5.1 CHLORIDE (BEAKER) (test ngul=174) 101 meq/L 98-107 CO2 (BEAKER) (test cxwm=817) 27 meq/L 22-29 BLOOD UREA NITROGEN (BEAKER) (test gmol=653) 42 mg/dL 7-21 CREATININE (BEAKER) (test jwpy=816) 0.86 mg/dL 0.57-1.25 GLUCOSE RANDOM (BEAKER) (test kfid=785) 83 mg/dL 70-105 CALCIUM (BEAKER) (test rhpv=031) 8.6 mg/dL 8.4-10.2 EGFR (BEAKER) (test uqhu=5837) 86 mL/min/1.73 sq m ESTIMATED GFR IS NOT ACCURATE CREATININE CLEARANCE IN PREDICTING GLOMERULAR FILTRATION RATE. ESTIMATED GFR IS NOT APPLICABLE FOR DIALYSIS PATIENTS. PROTHROMBIN [id number] 08:19:00* Test Item Value Reference Range Comments PROTIME (BEAKER) (test dwwi=342) 17.0 seconds 11.7-14.7 INR (BEAKER) (test xzpi=315) 1.4 <=5.9 RECOMMENDED COUMADIN/WARFARIN INR THERAPY RANGESSTANDARD DOSE: 2.0 - 3.0 Inclu navid: PROPHYLAXIS for venous thrombosis, systemic embolization; TREATMENT for dayna ous thrombosis and/or pulmonary embolus.HIGH RISK: Target INR is 2.5-3.5 for pat ients with mechanical heart valves.While on warfarin.[id number] 08:12:00* Test Item Value Reference Range Comments PARTIAL THROMBOPLASTIN TIME (MELAKER) (test cifm=053) 48.0 seconds 22.5-36.0 While on warfarin.PROTHROMBIN [id number] 08:10:00* Test Item Value Reference Range Comments PROTIME (BEAKER) (test rcch=293) 16.8 seconds 11.7-14.7 INR (BEAKER) (test oslz=222) 1.4 <=5.9 RECOMMENDED COUMADIN/WARFARIN INR THERAPY RANGESSTANDARD DOSE: 2.0 - 3.0 Inclu navid: PROPHYLAXIS for venous thrombosis, systemic embolization; TREATMENT for dayna ous thrombosis and/or pulmonary embolus.HIGH RISK: Target INR is 2.5-3.5 for pat ients with mechanical heart valves.While on warfarin.CBC (HEMOGRAM ONLY) 2017-09-01 08:07:00* Test Item Value Reference Range Comments WHITE BLOOD CELL COUNT (MELAKER) (test deqb=499) 11.1 K/ L 3.5-10.5 RED BLOOD CELL COUNT (BEAKER) (test twpp=129) 2.92 M/ L 4.63-6.08 HEMOGLOBIN (BEAKER) (test gnrg=758) 8.0 GM/DL 13.7-17.5 HEMATOCRIT (BEAKER) (test xlab=820) 25.5 % 40.1-51.0 MEAN CORPUSCULAR VOLUME (BEAKER) (test rsqm=560) 87.3 fL 79.0-92.2 MEAN CORPUSCULAR HEMOGLOBIN (BEAKER) (test elir=117) 27.4 pg 25.7-32.2 MEAN CORPUSCULAR HEMOGLOBIN CONC (BEAKER) (test ivfu=977) 31.4 GM/DL 32.3-36.5 RED CELL DISTRIBUTION WIDTH (BEAKER) (test mdup=051) 19.9 % 11.6-14.4 PLATELET COUNT (BEAKER) (test bvnj=308) 366 K/CU MM 150-450 MEAN PLATELET VOLUME (BEAKER) (test zpga=390) 9.6 fL 9.4-12.4 NUCLEATED RED BLOOD CELLS (BEAKER) (test pfqg=146) 0 /100 WBC 0-0 [id number] 00:27:00* Test Item Value Reference Range Comments PARTIAL THROMBOPLASTIN TIME (BEAKER) (test oipn=451) 77.8 seconds 22.5-36.0 [id number] 17:36:00* Test Item Value Reference Range Comments PARTIAL THROMBOPLASTIN TIME (BEAKER) (test wdri=714) 63.5 seconds 22.5-36.0 RAD, CHEST, 1 VIEW, NON [id number] 14:50:00Reason for exam:->shortness of breathShould this be performed at the bedside?->YesFINAL REPORT Chest one view compared to August 25, 2017 Discussion: There is interstitial congestion and confluent opacity left lung base probably in part reflecting effusion. 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 Right PICC line in place. No pneumothorax. IMPRESSIONS: Minimally improved chest appearance. Signed: Sukhwinder Baez Verified Date/Time: 08/31/2017 14:50:50 Reading Location: [facility] C013 Consult Reading Room 2017-08-31 07:58:00* Test Item Value Reference Range Comments PARTIAL THROMBOPLASTIN TIME (BEAKER) (test qwdb=352) 41.4 seconds 22.5-36.0 While on warfarin.BASIC METABOLIC [id number] 07:26:00* Test Item Value Reference Range Comments SODIUM (BEAKER) (test fmmz=616) 134 meq/L 136-145 POTASSIUM (BEAKER) (test cxvs=082) 4.2 meq/L 3.5-5.1 CHLORIDE (BEAKER) (test ndnb=269) 101 meq/L 98-107 CO2 (BEAKER) (test iatg=714) 26 meq/L 22-29 BLOOD UREA NITROGEN (BEAKER) (test tlaf=313) 37 mg/dL 7-21 CREATININE (BEAKER) (test ajxt=776) 0.85 mg/dL 0.57-1.25 GLUCOSE RANDOM (BEAKER) (test odyi=659) 80 mg/dL 70-105 CALCIUM (BEAKER) (test golj=420) 8.5 mg/dL 8.4-10.2 EGFR (BEAKER) (test yvig=4135) 87 mL/min/1.73 sq m ESTIMATED GFR IS NOT ACCURATE CREATININE CLEARANCE IN PREDICTING GLOMERULAR FILTRATION RATE. ESTIMATED GFR IS NOT APPLICABLE FOR DIALYSIS PATIENTS. PROTHROMBIN TIME/[id number] 06:33:00* Test Item Value Reference Range Comments PROTIME (BEAKER) (test lrkb=833) 18.9 seconds 11.7-14.7 INR (BEAKER) (test pmkx=528) 1.6 <=5.9 RECOMMENDED COUMADIN/WARFARIN INR THERAPY RANGESSTANDARD DOSE: 2.0 - 3.0 Inclu navid: PROPHYLAXIS for venous thrombosis, systemic embolization; TREATMENT for dayna ous thrombosis and/or pulmonary embolus.HIGH RISK: Target INR is 2.5-3.5 for pat ients with mechanical heart valves.While on warfarin.[id number] 06:29:00* Test Item Value Reference Range Comments MAGNESIUM (BEAKER) (test turc=056) 1.3 mg/dL 1.6-2.6 BASIC METABOLIC [id number] 06:29:00* Test Item Value Reference Range Comments SODIUM (BEAKER) (test tqke=867) 134 meq/L 136-145 POTASSIUM (BEAKER) (test tthp=691) 4.0 meq/L 3.5-5.1 CHLORIDE (BEAKER) (test huhy=084) 100 meq/L 98-107 CO2 (BEAKER) (test bnnm=452) 24 meq/L 22-29 BLOOD UREA NITROGEN (BEAKER) (test nhal=595) 38 mg/dL 7-21 CREATININE (BEAKER) (test otcl=039) 0.83 mg/dL 0.57-1.25 GLUCOSE RANDOM (BEAKER) (test kjfr=746) 92 mg/dL 70-105 CALCIUM (BEAKER) (test mgbl=301) 8.5 mg/dL 8.4-10.2 EGFR (BEAKER) (test qxdq=7674) 89 mL/min/1.73 sq m ESTIMATED GFR IS NOT ACCURATE CREATININE CLEARANCE IN PREDICTING GLOMERULAR FILTRATION RATE. ESTIMATED GFR IS NOT APPLICABLE FOR DIALYSIS PATIENTS. HEPATIC FUNCTION [id number] 06:29:00* Test Item Value Reference Range Comments TOTAL PROTEIN (BEAKER) (test xofb=114) 6.2 gm/dL 6.0-8.3 ALBUMIN (BEAKER) (test hwjh=3239) 2.6 g/dL 3.5-5.0 BILIRUBIN TOTAL (BEAKER) (test jbxx=061) 0.8 mg/dL 0.2-1.2 BILIRUBIN DIRECT (BEAKER) (test hbiv=020) 0.6 mg/dL 0.1-0.5 ALKALINE PHOSPHATASE (BEAKER) (test ynbu=742) 133 U/L 40-150 AST (SGOT) (BEAKER) (test myoh=441) 49 U/L 5-34 ALT (SGPT) (BEAKER) (test ysrz=913) 32 U/L 6-55 PROTHROMBIN TIME/[id number] 06:21:00* Test Item Value Reference Range Comments PROTIME (BEAKER) (test grmt=180) 21.9 seconds 11.7-14.7 INR (BEAKER) (test xrli=580) 1.9 <=5.9 RECOMMENDED COUMADIN/WARFARIN INR THERAPY RANGESSTANDARD DOSE: 2.0 - 3.0 Inclu navid: PROPHYLAXIS for venous thrombosis, systemic embolization; TREATMENT for dayna ous thrombosis and/or pulmonary embolus.HIGH RISK: Target INR is 2.5-3.5 for pat ients with mechanical heart valves.While on warfarin.CBC W/PLT COUNT & AUTO [id number] 06:18:00* Test Item Value Reference Range Comments WHITE BLOOD CELL COUNT (BEAKER) (test ptfm=301) 11.8 K/ L 3.5-10.5 RED BLOOD CELL COUNT (BEAKER) (test pmag=726) 3.12 M/ L 4.63-6.08 HEMOGLOBIN (BEAKER) (test idvs=243) 8.5 GM/DL 13.7-17.5 HEMATOCRIT (BEAKER) (test buiv=958) 26.9 % 40.1-51.0 MEAN CORPUSCULAR VOLUME (BEAKER) (test rchf=280) 86.2 fL 79.0-92.2 MEAN CORPUSCULAR HEMOGLOBIN (BEAKER) (test fjmq=837) 27.2 pg 25.7-32.2 MEAN CORPUSCULAR HEMOGLOBIN CONC (BEAKER) (test botd=236) 31.6 GM/DL 32.3-36.5 RED CELL DISTRIBUTION WIDTH (BEAKER) (test rtwi=161) 20.2 % 11.6-14.4 PLATELET COUNT (BEAKER) (test cndp=161) 366 K/CU MM 150-450 MEAN PLATELET VOLUME (BEAKER) (test kxwr=981) 9.8 fL 9.4-12.4 NUCLEATED RED BLOOD CELLS (BEAKER) (test qxut=217) 0 /100 WBC 0-0 NEUTROPHILS RELATIVE PERCENT (BEAKER) (test qeds=091) 64 % LYMPHOCYTES RELATIVE PERCENT (BEAKER) (test ybyw=591) 13 % MONOCYTES RELATIVE PERCENT (BEAKER) (test exhu=594) 12 % EOSINOPHILS RELATIVE PERCENT (BEAKER) (test aboo=666) 10 % BASOPHILS RELATIVE PERCENT (BEAKER) (test aevj=481) 1 % NEUTROPHILS ABSOLUTE COUNT (BEAKER) (test zgyg=468) 7.55 K/ L 1.78-5.38 LYMPHOCYTES ABSOLUTE COUNT (BEAKER) (test bmcs=504) 1.56 K/ L 1.32-3.57 MONOCYTES ABSOLUTE COUNT (BEAKER) (test zvtg=578) 1.37 K/ L 0.30-0.82 EOSINOPHILS ABSOLUTE COUNT (BEAKER) (test hwml=244) 1.12 K/ L 0.04-0.54 BASOPHILS ABSOLUTE COUNT (BEAKER) (test skkh=516) 0.14 K/ L 0.01-0.08 IMMATURE GRANULOCYTES-RELATIVE PERCENT (BEAKER) (test nfbk=0772) 1 % 0-1 PROTHROMBIN TIME/[id number] 07:19:00* Test Item Value Reference Range Comments PROTIME (BEAKER) (test wyrq=494) 23.8 seconds 11.7-14.7 INR (BEAKER) (test aioz=165) 2.1 <=5.9 RECOMMENDED COUMADIN/WARFARIN INR THERAPY RANGESSTANDARD DOSE: 2.0 - 3.0 Inclu navid: PROPHYLAXIS for venous thrombosis, systemic embolization; TREATMENT for dayna ous thrombosis and/or pulmonary embolus.HIGH RISK: Target INR is 2.5-3.5 for pat ients with mechanical heart valves.While on warfarin.[id number] 05:56:00* Test Item Value Reference Range Comments MAGNESIUM (BEAKER) (test iyzk=354) 1.6 mg/dL 1.6-2.6 BASIC METABOLIC [id number] 05:56:00* Test Item Value Reference Range Comments SODIUM (BEAKER) (test fqsu=956) 136 meq/L 136-145 POTASSIUM (BEAKER) (test rwuy=373) 4.0 meq/L 3.5-5.1 CHLORIDE (BEAKER) (test eykw=990) 103 meq/L 98-107 CO2 (BEAKER) (test bnbu=508) 25 meq/L 22-29 BLOOD UREA NITROGEN (BEAKER) (test pypn=123) 42 mg/dL 7-21 CREATININE (BEAKER) (test wrzb=270) 0.93 mg/dL 0.57-1.25 GLUCOSE RANDOM (BEAKER) (test nflh=268) 91 mg/dL 70-105 CALCIUM (BEAKER) (test bcwb=946) 8.3 mg/dL 8.4-10.2 EGFR (BEAKER) (test zjnr=2367) 78 mL/min/1.73 sq m ESTIMATED GFR IS NOT ACCURATE CREATININE CLEARANCE IN PREDICTING GLOMERULAR FILTRATION RATE. ESTIMATED GFR IS NOT APPLICABLE FOR DIALYSIS PATIENTS. CBC W/PLT COUNT & AUTO [id number] 05:39:00* Test Item Value Reference Range Comments WHITE BLOOD CELL COUNT (BEAKER) (test pqvz=868) 12.0 K/ L 3.5-10.5 RED BLOOD CELL COUNT (BEAKER) (test trfi=745) 3.12 M/ L 4.63-6.08 HEMOGLOBIN (BEAKER) (test emgo=280) 8.7 GM/DL 13.7-17.5 HEMATOCRIT (BEAKER) (test tglj=199) 27.4 % 40.1-51.0 MEAN CORPUSCULAR VOLUME (BEAKER) (test vvmu=430) 87.8 fL 79.0-92.2 MEAN CORPUSCULAR HEMOGLOBIN (BEAKER) (test mekv=504) 27.9 pg 25.7-32.2 MEAN CORPUSCULAR HEMOGLOBIN CONC (BEAKER) (test apnk=074) 31.8 GM/DL 32.3-36.5 RED CELL DISTRIBUTION WIDTH (BEAKER) (test iduq=881) 20.8 % 11.6-14.4 PLATELET COUNT (BEAKER) (test naxc=577) 372 K/CU MM 150-450 MEAN PLATELET VOLUME (BEAKER) (test txhg=439) 9.9 fL 9.4-12.4 NUCLEATED RED BLOOD CELLS (BEAKER) (test egqs=310) 0 /100 WBC 0-0 NEUTROPHILS RELATIVE PERCENT (BEAKER) (test pbbs=259) 61 % LYMPHOCYTES RELATIVE PERCENT (BEAKER) (test agfq=500) 16 % MONOCYTES RELATIVE PERCENT (BEAKER) (test prew=752) 9 % EOSINOPHILS RELATIVE PERCENT (BEAKER) (test ieps=564) 12 % BASOPHILS RELATIVE PERCENT (BEAKER) (test rxaz=624) 1 % NEUTROPHILS ABSOLUTE COUNT (BEAKER) (test osmn=896) 7.32 K/ L 1.78-5.38 LYMPHOCYTES ABSOLUTE COUNT (BEAKER) (test aquy=995) 1.96 K/ L 1.32-3.57 MONOCYTES ABSOLUTE COUNT (BEAKER) (test zaqn=466) 1.08 K/ L 0.30-0.82 EOSINOPHILS ABSOLUTE COUNT (BEAKER) (test bygt=058) 1.43 K/ L 0.04-0.54 BASOPHILS ABSOLUTE COUNT (BEAKER) (test zhtl=079) 0.14 K/ L 0.01-0.08 IMMATURE GRANULOCYTES-RELATIVE PERCENT (BEAKER) (test cmjd=3483) 1 % 0-1 PROTHROMBIN TIME/[id number] 05:35:00* Test Item Value Reference Range Comments PROTIME (BEAKER) (test rziz=962) 34.0 seconds 11.7-14.7 INR (BEAKER) (test fmud=006) 3.4 <=5.9 RECOMMENDED COUMADIN/WARFARIN INR THERAPY RANGESSTANDARD DOSE: 2.0 - 3.0 Inclu navid: PROPHYLAXIS for venous thrombosis, systemic embolization; TREATMENT for dayna ous thrombosis and/or pulmonary embolus.HIGH RISK: Target INR is 2.5-3.5 for pat ients with mechanical heart valves.BASIC METABOLIC [id number] 06:12:00* Test Item Value Reference Range Comments SODIUM (BEAKER) (test lscz=200) 137 meq/L 136-145 POTASSIUM (BEAKER) (test kfsa=043) 4.3 meq/L 3.5-5.1 CHLORIDE (BEAKER) (test zjjf=780) 102 meq/L 98-107 CO2 (BEAKER) (test lkow=839) 27 meq/L 22-29 BLOOD UREA NITROGEN (BEAKER) (test shcw=442) 43 mg/dL 7-21 CREATININE (BEAKER) (test xcfq=083) 1.00 mg/dL 0.57-1.25 GLUCOSE RANDOM (BEAKER) (test jmyw=084) 76 mg/dL 70-105 CALCIUM (BEAKER) (test qkgd=289) 8.6 mg/dL 8.4-10.2 EGFR (BEAKER) (test swzi=9141) 72 mL/min/1.73 sq m ESTIMATED GFR IS NOT ACCURATE CREATININE CLEARANCE IN PREDICTING GLOMERULAR FILTRATION RATE. ESTIMATED GFR IS NOT APPLICABLE FOR DIALYSIS PATIENTS. CBC W/PLT COUNT & AUTO [id number] 06:06:00* Test Item Value Reference Range Comments WHITE BLOOD CELL COUNT (BEAKER) (test dztg=536) 12.2 K/ L 3.5-10.5 RED BLOOD CELL COUNT (BEAKER) (test nfzb=411) 3.32 M/ L 4.63-6.08 HEMOGLOBIN (BEAKER) (test bawv=346) 9.0 GM/DL 13.7-17.5 HEMATOCRIT (BEAKER) (test kfzg=715) 28.7 % 40.1-51.0 MEAN CORPUSCULAR VOLUME (BEAKER) (test lklp=268) 86.4 fL 79.0-92.2 MEAN CORPUSCULAR HEMOGLOBIN (BEAKER) (test zwcs=094) 27.1 pg 25.7-32.2 MEAN CORPUSCULAR HEMOGLOBIN CONC (BEAKER) (test clmp=663) 31.4 GM/DL 32.3-36.5 RED CELL DISTRIBUTION WIDTH (BEAKER) (test ftpq=858) 20.8 % 11.6-14.4 PLATELET COUNT (BEAKER) (test bcaf=023) 390 K/CU MM 150-450 MEAN PLATELET VOLUME (BEAKER) (test dqhe=833) 9.9 fL 9.4-12.4 NUCLEATED RED BLOOD CELLS (BEAKER) (test pcez=998) 0 /100 WBC 0-0 NEUTROPHILS RELATIVE PERCENT (BEAKER) (test gmfg=710) 62 % LYMPHOCYTES RELATIVE PERCENT (BEAKER) (test ggup=394) 16 % MONOCYTES RELATIVE PERCENT (BEAKER) (test nqxh=495) 9 % EOSINOPHILS RELATIVE PERCENT (BEAKER) (test scyz=844) 11 % BASOPHILS RELATIVE PERCENT (BEAKER) (test oteb=962) 1 % NEUTROPHILS ABSOLUTE COUNT (BEAKER) (test njcg=428) 7.55 K/ L 1.78-5.38 LYMPHOCYTES ABSOLUTE COUNT (BEAKER) (test vvzd=871) 1.90 K/ L 1.32-3.57 MONOCYTES ABSOLUTE COUNT (BEAKER) (test yzfy=667) 1.13 K/ L 0.30-0.82 EOSINOPHILS ABSOLUTE COUNT (BEAKER) (test dbzo=725) 1.38 K/ L 0.04-0.54 BASOPHILS ABSOLUTE COUNT (BEAKER) (test ydzb=654) 0.15 K/ L 0.01-0.08 IMMATURE GRANULOCYTES-RELATIVE PERCENT (BEAKER) (test cvwo=6375) 1 % 0-1 URINALYSIS W/ REFLEX URINE [id number] 20:46:00* Test Item Value Reference Range Comments COLOR (BEAKER) (test tqvo=245) Light Yellow CLARITY (BEAKER) (test fmgm=042) Clear SPECIFIC GRAVITY UA (BEAKER) (test ghjj=130) 1.006 1.001-1.035 PH UA (BEAKER) (test pqma=673) 6.5 5.0-8.0 PROTEIN UA (BEAKER) (test nidw=006) Negative Negative GLUCOSE UA (BEAKER) (test smfh=554) Negative Negative KETONES UA (BEAKER) (test mvaa=434) Negative Negative BILIRUBIN UA (BEAKER) (test byus=381) Negative Negative BLOOD UA (BEAKER) (test mdbj=538) Negative Negative NITRITE UA (BEAKER) (test xkdo=472) Negative Negative LEUKOCYTE ESTERASE UA (BEAKER) (test dqjq=375) Negative Negative UROBILINOGEN UA (BEAKER) (test vqgl=068) 0.2 mg/dL 0.2-1.0 RBC UA (BEAKER) (test zmyv=259) 0 /HPF WBC UA (BEAKER) (test bkfg=476) 0 /HPF SQUAMOUS EPITHELIAL (BEAKER) (test ijbe=392) 1 /HPF SOURCE(BEAKER) (test umpm=4960) VITAMIN B12 AND [id number] 09:59:00* Test Item Value Reference Range Comments VITAMIN B12 (BEAKER) (test bepa=227) 540 pg/mL 213-816 FOLATE (BEAKER) (test bmhv=290) 14.0 ng/mL >=7.0 [id number] 08:35:00* Test Item Value Reference Range Comments PHOSPHORUS (BEAKER) (test xamh=049) 4.0 mg/dL 2.3-4.7 [id number] 08:35:00* Test Item Value Reference Range Comments MAGNESIUM (BEAKER) (test jdzg=844) 1.7 mg/dL 1.6-2.6 COMPREHENSIVE METABOLIC [id number] 08:35:00* Test Item Value Reference Range Comments TOTAL PROTEIN (BEAKER) (test bvkp=251) 6.5 gm/dL 6.0-8.3 ALBUMIN (BEAKER) (test crjk=3681) 2.7 g/dL 3.5-5.0 ALKALINE PHOSPHATASE (BEAKER) (test wiqc=795) 154 U/L 40-150 BILIRUBIN TOTAL (BEAKER) (test fwel=209) 1.0 mg/dL 0.2-1.2 SODIUM (BEAKER) (test wfdk=516) 135 meq/L 136-145 POTASSIUM (BEAKER) (test lloz=171) 4.3 meq/L 3.5-5.1 CHLORIDE (BEAKER) (test yddf=578) 99 meq/L 98-107 CO2 (BEAKER) (test dvbz=100) 26 meq/L 22-29 BLOOD UREA NITROGEN (BEAKER) (test sjrs=832) 40 mg/dL 7-21 CREATININE (BEAKER) (test hqoy=668) 1.26 mg/dL 0.57-1.25 GLUCOSE RANDOM (BEAKER) (test sgja=030) 75 mg/dL 70-105 CALCIUM (BEAKER) (test ypkt=851) 8.8 mg/dL 8.4-10.2 AST (SGOT) (BEAKER) (test hkrk=335) 59 U/L 5-34 ALT (SGPT) (BEAKER) (test nteq=348) 32 U/L 6-55 EGFR (BEAKER) (test jmhz=2181) 55 mL/min/1.73 sq m ESTIMATED GFR IS NOT ACCURATE CREATININE CLEARANCE IN PREDICTING GLOMERULAR FILTRATION RATE. ESTIMATED GFR IS NOT APPLICABLE FOR DIALYSIS PATIENTS. CBC W/PLT COUNT & AUTO [id number] 06:38:00* Test Item Value Reference Range Comments WHITE BLOOD CELL COUNT (BEAKER) (test idhy=694) 13.2 K/ L 3.5-10.5 RED BLOOD CELL COUNT (BEAKER) (test kyds=286) 3.58 M/ L 4.63-6.08 HEMOGLOBIN (BEAKER) (test uejg=389) 9.6 GM/DL 13.7-17.5 HEMATOCRIT (BEAKER) (test hjfh=597) 30.5 % 40.1-51.0 MEAN CORPUSCULAR VOLUME (BEAKER) (test uoez=350) 85.2 fL 79.0-92.2 MEAN CORPUSCULAR HEMOGLOBIN (BEAKER) (test xbef=494) 26.8 pg 25.7-32.2 MEAN CORPUSCULAR HEMOGLOBIN CONC (BEAKER) (test dybg=186) 31.5 GM/DL 32.3-36.5 RED CELL DISTRIBUTION WIDTH (BEAKER) (test qnxm=400) 20.8 % 11.6-14.4 PLATELET COUNT (BEAKER) (test ggwj=739) 402 K/CU MM 150-450 MEAN PLATELET VOLUME (BEAKER) (test ljnn=044) 10.0 fL 9.4-12.4 NUCLEATED RED BLOOD CELLS (BEAKER) (test voxo=658) 0 /100 WBC 0-0 NEUTROPHILS RELATIVE PERCENT (BEAKER) (test hkgq=540) 63 % LYMPHOCYTES RELATIVE PERCENT (BEAKER) (test mmto=729) 17 % MONOCYTES RELATIVE PERCENT (BEAKER) (test rqpb=892) 10 % EOSINOPHILS RELATIVE PERCENT (BEAKER) (test bshq=093) 9 % BASOPHILS RELATIVE PERCENT (BEAKER) (test athg=917) 1 % NEUTROPHILS ABSOLUTE COUNT (BEAKER) (test yobr=050) 8.26 K/ L 1.78-5.38 LYMPHOCYTES ABSOLUTE COUNT (BEAKER) (test yulh=983) 2.20 K/ L 1.32-3.57 MONOCYTES ABSOLUTE COUNT (BEAKER) (test hmhw=248) 1.26 K/ L 0.30-0.82 EOSINOPHILS ABSOLUTE COUNT (BEAKER) (test odxm=983) 1.19 K/ L 0.04-0.54 BASOPHILS ABSOLUTE COUNT (BEAKER) (test cqwq=997) 0.18 K/ L 0.01-0.08 IMMATURE GRANULOCYTES-RELATIVE PERCENT (BEAKER) (test nsku=2138) 1 % 0-1 RAD, CHEST, 1 VIEW, NON [id number] 08:27:00Reason for exam:->Assess pulmonary effusionShould this be performed at the bedside?->YesFINAL REPORT Chest one view INDICATION: Assess pulmonary effusion COMPARISON: 08/24/2017 IMPRESSION: Right PICC line, median sternotomy changes, ICD, and LVAD are again noted. The cardiac silhouette is enlarged. Mediastinal prominence is stable. Pulmonary edema is similar in appearance. Left retro cardiac consolidation or atelectasis, right basilar airspace disease, and depend ent pleural effusions are stable. No pneumothorax is seen. Signed: Celine Jackson MDReport Verified Date/Time: 08/25/2017 08:27:59 Reading Location: [facility] Radiology Reading Room ATE DEHYDROGENASE ([facility])2017-08-25 06:30:00* Test Item Value Reference Range Comments LACTATE DEHYDROGENASE (BEAKER) (test thbp=648) 290 U/L 125-220 BASIC METABOLIC [id number] 06:30:00* Test Item Value Reference Range Comments SODIUM (BEAKER) (test dccy=518) 135 meq/L 136-145 POTASSIUM (BEAKER) (test rmpj=055) 4.2 meq/L 3.5-5.1 CHLORIDE (BEAKER) (test xqim=147) 100 meq/L 98-107 CO2 (BEAKER) (test uzmf=743) 24 meq/L 22-29 BLOOD UREA NITROGEN (BEAKER) (test aaco=872) 36 mg/dL 7-21 CREATININE (BEAKER) (test upnq=215) 1.10 mg/dL 0.57-1.25 GLUCOSE RANDOM (BEAKER) (test vlie=297) 85 mg/dL 70-105 CALCIUM (BEAKER) (test yxpw=708) 8.9 mg/dL 8.4-10.2 EGFR (BEAKER) (test kggg=4040) 64 mL/min/1.73 sq m ESTIMATED GFR IS NOT ACCURATE CREATININE CLEARANCE IN PREDICTING GLOMERULAR FILTRATION RATE. ESTIMATED GFR IS NOT APPLICABLE FOR DIALYSIS PATIENTS. PROTHROMBIN TIME/[id number] 06:21:00* Test Item Value Reference Range Comments PROTIME (BEAKER) (test upsv=637) 25.8 seconds 11.7-14.7 INR (BEAKER) (test qfhr=884) 2.4 <=5.9 RECOMMENDED COUMADIN/WARFARIN INR THERAPY RANGESSTANDARD DOSE: 2.0 - 3.0 Inclu navid: PROPHYLAXIS for venous thrombosis, systemic embolization; TREATMENT for dayna ous thrombosis and/or pulmonary embolus.HIGH RISK: Target INR is 2.5-3.5 for pat ients with mechanical heart valves.CBC W/PLT COUNT & AUTO [id number] 06:15:00* Test Item Value Reference Range Comments WHITE BLOOD CELL COUNT (BEAKER) (test pwqp=320) 13.8 K/ L 3.5-10.5 RED BLOOD CELL COUNT (BEAKER) (test agwc=815) 3.39 M/ L 4.63-6.08 HEMOGLOBIN (BEAKER) (test zrbl=923) 9.3 GM/DL 13.7-17.5 HEMATOCRIT (BEAKER) (test bqak=808) 29.2 % 40.1-51.0 MEAN CORPUSCULAR VOLUME (BEAKER) (test gjqb=979) 86.1 fL 79.0-92.2 MEAN CORPUSCULAR HEMOGLOBIN (BEAKER) (test grak=964) 27.4 pg 25.7-32.2 MEAN CORPUSCULAR HEMOGLOBIN CONC (BEAKER) (test szmi=949) 31.8 GM/DL 32.3-36.5 RED CELL DISTRIBUTION WIDTH (BEAKER) (test jsdh=965) 21.2 % 11.6-14.4 PLATELET COUNT (BEAKER) (test xlzn=683) 359 K/CU MM 150-450 MEAN PLATELET VOLUME (BEAKER) (test gnts=118) 9.4 fL 9.4-12.4 NUCLEATED RED BLOOD CELLS (BEAKER) (test xkpz=076) 0 /100 WBC 0-0 NEUTROPHILS RELATIVE PERCENT (BEAKER) (test umas=884) 70 % LYMPHOCYTES RELATIVE PERCENT (BEAKER) (test hwiv=034) 13 % MONOCYTES RELATIVE PERCENT (BEAKER) (test unyw=183) 11 % EOSINOPHILS RELATIVE PERCENT (BEAKER) (test qmfc=260) 5 % BASOPHILS RELATIVE PERCENT (BEAKER) (test lfwp=692) 1 % NEUTROPHILS ABSOLUTE COUNT (BEAKER) (test bsdk=119) 9.57 K/ L 1.78-5.38 LYMPHOCYTES ABSOLUTE COUNT (BEAKER) (test hejn=466) 1.76 K/ L 1.32-3.57 MONOCYTES ABSOLUTE COUNT (BEAKER) (test dbyd=182) 1.44 K/ L 0.30-0.82 EOSINOPHILS ABSOLUTE COUNT (BEAKER) (test pzdz=853) 0.70 K/ L 0.04-0.54 BASOPHILS ABSOLUTE COUNT (BEAKER) (test zvte=011) 0.18 K/ L 0.01-0.08 IMMATURE GRANULOCYTES-RELATIVE PERCENT (BEAKER) (test femx=0550) 1 % 0-1 RAD, CHEST, 1 VIEW, NON [id number] 07:35:00Reason for exam:->Assess pulmonary effusionShould this be performed at the bedside?->YesFINAL REPORT Chest one view INDICATION: Assess pulmonary effusion COMPARISON: 08/23/2017 IMPRESSION: Right PICC line, median sternotomy changes, ICD, and LVAD are again noted. The cardiac silhouette is enlarged. Mediastinal prominence is stable. Pulmonary edema is similar in appearance. Left retro cardiac consolidation or atelectasis and right basilar airspace disease are stab le with dependent pleural effusions. No pneumothorax is seen. Signed: Larissa Jackson MDReport Verified Date/Time: 08/24/2017 07:35:10 Reading Location: [facility] Radiology Reading Room ATE DEHYDROGENASE ([facility])2017-08-24 05:45:00 * Test Item Value Reference Range Comments LACTATE DEHYDROGENASE (BEAKER) (test dijv=010) 302 U/L 125-220 BASIC METABOLIC [id number] 05:45:00* Test Item Value Reference Range Comments SODIUM (BEAKER) (test woiw=687) 133 meq/L 136-145 POTASSIUM (BEAKER) (test bams=000) 4.0 meq/L 3.5-5.1 CHLORIDE (BEAKER) (test dmod=796) 96 meq/L 98-107 CO2 (BEAKER) (test foml=148) 27 meq/L 22-29 BLOOD UREA NITROGEN (BEAKER) (test vwza=566) 35 mg/dL 7-21 CREATININE (BEAKER) (test rhru=386) 1.15 mg/dL 0.57-1.25 GLUCOSE RANDOM (BEAKER) (test jncv=818) 85 mg/dL 70-105 CALCIUM (BEAKER) (test wjmc=963) 9.2 mg/dL 8.4-10.2 EGFR (BEAKER) (test dwaz=2513) 61 mL/min/1.73 sq m ESTIMATED GFR IS NOT ACCURATE CREATININE CLEARANCE IN PREDICTING GLOMERULAR FILTRATION RATE. ESTIMATED GFR IS NOT APPLICABLE FOR DIALYSIS PATIENTS. PROTHROMBIN TIME/[id number] 05:16:00* Test Item Value Reference Range Comments PROTIME (BEAKER) (test ubvy=676) 29.1 seconds 11.7-14.7 INR (BEAKER) (test wnpt=623) 2.8 <=5.9 RECOMMENDED COUMADIN/WARFARIN INR THERAPY RANGESSTANDARD DOSE: 2.0 - 3.0 Inclu navid: PROPHYLAXIS for venous thrombosis, systemic embolization; TREATMENT for dayna ous thrombosis and/or pulmonary embolus.HIGH RISK: Target INR is 2.5-3.5 for pat ients with mechanical heart valves.CBC W/PLT COUNT & AUTO [id number] 05:09:00* Test Item Value Reference Range Comments WHITE BLOOD CELL COUNT (BEAKER) (test ulnx=251) 14.2 K/ L 3.5-10.5 RED BLOOD CELL COUNT (BEAKER) (test sukb=789) 3.43 M/ L 4.63-6.08 HEMOGLOBIN (BEAKER) (test vqlu=722) 9.4 GM/DL 13.7-17.5 HEMATOCRIT (BEAKER) (test vlsm=380) 29.5 % 40.1-51.0 MEAN CORPUSCULAR VOLUME (BEAKER) (test kxhp=120) 86.0 fL 79.0-92.2 MEAN CORPUSCULAR HEMOGLOBIN (BEAKER) (test hdrj=448) 27.4 pg 25.7-32.2 MEAN CORPUSCULAR HEMOGLOBIN CONC (BEAKER) (test vhtm=354) 31.9 GM/DL 32.3-36.5 RED CELL DISTRIBUTION WIDTH (BEAKER) (test yqtc=633) 21.2 % 11.6-14.4 PLATELET COUNT (BEAKER) (test spgk=364) 343 K/CU MM 150-450 MEAN PLATELET VOLUME (BEAKER) (test dujc=352) 9.6 fL 9.4-12.4 NUCLEATED RED BLOOD CELLS (BEAKER) (test mhip=059) 0 /100 WBC 0-0 NEUTROPHILS RELATIVE PERCENT (BEAKER) (test qlxs=992) 69 % LYMPHOCYTES RELATIVE PERCENT (BEAKER) (test vdsm=785) 12 % MONOCYTES RELATIVE PERCENT (BEAKER) (test sqpc=087) 11 % EOSINOPHILS RELATIVE PERCENT (BEAKER) (test nsef=014) 5 % BASOPHILS RELATIVE PERCENT (BEAKER) (test yjye=772) 1 % NEUTROPHILS ABSOLUTE COUNT (BEAKER) (test wfpz=565) 9.82 K/ L 1.78-5.38 LYMPHOCYTES ABSOLUTE COUNT (BEAKER) (test smof=128) 1.76 K/ L 1.32-3.57 MONOCYTES ABSOLUTE COUNT (BEAKER) (test ddbc=638) 1.61 K/ L 0.30-0.82 EOSINOPHILS ABSOLUTE COUNT (BEAKER) (test vsbo=942) 0.71 K/ L 0.04-0.54 BASOPHILS ABSOLUTE COUNT (BEAKER) (test ouja=917) 0.17 K/ L 0.01-0.08 IMMATURE GRANULOCYTES-RELATIVE PERCENT (BEAKER) (test vwlq=6368) 1 % 0-1 RAD, CHEST, 1 VIEW, NON [id number] 09:02:00Reason for exam:->Assess pulmonary effusionShould this be performed at the bedside?->YesFINAL REPORT Chest one view INDICATION: Pulmonary effusion COMPARISON: 08/22/2017 IMPRESSION: Right PICC line, median sternotomy changes, ICD, and LVAD are again noted. The cardiac silhouette is enlarged. Mediastinal prominence is stable. Left greater than right dependent pleural effusions have likely redistributed. Vascular congestion and bilateral lung opacities are similar and suggest edema and atelectasis. Superimposed pneumonitis cannot be excluded. No pneumothorax is seen. Signed: Larissa Jackson MDReport Verified Date/Time: 08/23/2017 09:02:50 Reading Location: [facility] Radiology Reading Room ATE DEHYDROGENASE ([facility])2017-08-23 05:03:00* Test Item Value Reference Range Comments LACTATE DEHYDROGENASE (BEAKER) (test fmtg=798) 289 U/L 125-220 BASIC METABOLIC [id number] 05:03:00* Test Item Value Reference Range Comments SODIUM (BEAKER) (test cfxl=939) 131 meq/L 136-145 POTASSIUM (BEAKER) (test rmmq=042) 4.4 meq/L 3.5-5.1 CHLORIDE (BEAKER) (test cipe=888) 96 meq/L 98-107 CO2 (BEAKER) (test oavs=007) 24 meq/L 22-29 BLOOD UREA NITROGEN (BEAKER) (test skxd=772) 34 mg/dL 7-21 CREATININE (BEAKER) (test ehag=487) 1.09 mg/dL 0.57-1.25 GLUCOSE RANDOM (BEAKER) (test mqxe=341) 84 mg/dL 70-105 CALCIUM (BEAKER) (test wyom=316) 9.0 mg/dL 8.4-10.2 EGFR (BEAKER) (test qkgb=0251) 65 mL/min/1.73 sq m ESTIMATED GFR IS NOT ACCURATE CREATININE CLEARANCE IN PREDICTING GLOMERULAR FILTRATION RATE. ESTIMATED GFR IS NOT APPLICABLE FOR DIALYSIS PATIENTS. PROTHROMBIN TIME/[id number] 04:54:00* Test Item Value Reference Range Comments PROTIME (BEAKER) (test amsg=672) 28.4 seconds 11.7-14.7 INR (BEAKER) (test hxve=262) 2.7 <=5.9 RECOMMENDED COUMADIN/WARFARIN INR THERAPY RANGESSTANDARD DOSE: 2.0 - 3.0 Inclu navid: PROPHYLAXIS for venous thrombosis, systemic embolization; TREATMENT for dayna ous thrombosis and/or pulmonary embolus.HIGH RISK: Target INR is 2.5-3.5 for pat ients with mechanical heart valves.CBC W/PLT COUNT & AUTO [id number] 04:47:00* Test Item Value Reference Range Comments WHITE BLOOD CELL COUNT (BEAKER) (test reem=527) 15.4 K/ L 3.5-10.5 RED BLOOD CELL COUNT (BEAKER) (test tejo=717) 3.36 M/ L 4.63-6.08 HEMOGLOBIN (BEAKER) (test hzht=998) 9.2 GM/DL 13.7-17.5 HEMATOCRIT (BEAKER) (test vudm=379) 28.5 % 40.1-51.0 MEAN CORPUSCULAR VOLUME (BEAKER) (test cfre=410) 84.8 fL 79.0-92.2 MEAN CORPUSCULAR HEMOGLOBIN (BEAKER) (test lygk=590) 27.4 pg 25.7-32.2 MEAN CORPUSCULAR HEMOGLOBIN CONC (BEAKER) (test fatw=307) 32.3 GM/DL 32.3-36.5 RED CELL DISTRIBUTION WIDTH (BEAKER) (test jlub=128) 21.3 % 11.6-14.4 PLATELET COUNT (BEAKER) (test rwtn=118) 329 K/CU MM 150-450 MEAN PLATELET VOLUME (BEAKER) (test teac=373) 9.7 fL 9.4-12.4 NUCLEATED RED BLOOD CELLS (BEAKER) (test tsrn=923) 0 /100 WBC 0-0 NEUTROPHILS RELATIVE PERCENT (BEAKER) (test qkke=596) 72 % LYMPHOCYTES RELATIVE PERCENT (BEAKER) (test nbww=491) 12 % MONOCYTES RELATIVE PERCENT (BEAKER) (test ummk=085) 11 % EOSINOPHILS RELATIVE PERCENT (BEAKER) (test zqyx=007) 3 % BASOPHILS RELATIVE PERCENT (BEAKER) (test tiwm=495) 1 % NEUTROPHILS ABSOLUTE COUNT (BEAKER) (test aixp=506) 11.15 K/ L 1.78-5.38 LYMPHOCYTES ABSOLUTE COUNT (BEAKER) (test eoml=060) 1.77 K/ L 1.32-3.57 MONOCYTES ABSOLUTE COUNT (BEAKER) (test dvrg=530) 1.66 K/ L 0.30-0.82 EOSINOPHILS ABSOLUTE COUNT (BEAKER) (test cdxz=716) 0.53 K/ L 0.04-0.54 BASOPHILS ABSOLUTE COUNT (BEAKER) (test hoag=026) 0.16 K/ L 0.01-0.08 IMMATURE GRANULOCYTES-RELATIVE PERCENT (BEAKER) (test oqeb=5576) 1 % 0-1 RAD, CHEST, 1 VIEW, NON [id number] 07:40:00Reason for exam:->Assess pulmonary effusionShould this be performed at the bedside?->YesFINAL REPORT CLINICAL HISTORY: Assess pulmonary effusion TECHNIQUE: 1 view of the chest. COMPARISON: 08/21/2017 IMPRESSION: A right PICC line is again seen. Bilateral airspace opacities and pleural effusions are slightly decreased. The cardiomediastinal silhouette is magnified by technique with sternotomy wires, pacemaker, and LVAD. Signed: Shonda Mahoney MDReport Verified Date/Time: 08/22/2017 07:40:30 Reading Location: [facility] Neuro Reading Room ATE DEHYDROGENASE (LDH)2017-08-22 06:21:00* Test Item Value Reference Range Comments LACTATE DEHYDROGENASE (BEAKER) (test drfx=253) 294 U/L 125-220 BASIC METABOLIC [id number] 06:21:00* Test Item Value Reference Range Comments SODIUM (BEAKER) (test olpp=416) 133 meq/L 136-145 POTASSIUM (BEAKER) (test wcvj=359) 4.2 meq/L 3.5-5.1 CHLORIDE (BEAKER) (test griy=653) 96 meq/L 98-107 CO2 (BEAKER) (test pabm=228) 27 meq/L 22-29 BLOOD UREA NITROGEN (BEAKER) (test zpqn=009) 34 mg/dL 7-21 CREATININE (BEAKER) (test mdkw=493) 1.09 mg/dL 0.57-1.25 GLUCOSE RANDOM (BEAKER) (test crxe=423) 78 mg/dL 70-105 CALCIUM (BEAKER) (test jsqq=530) 9.1 mg/dL 8.4-10.2 EGFR (BEAKER) (test vhck=5145) 65 mL/min/1.73 sq m ESTIMATED GFR IS NOT ACCURATE CREATININE CLEARANCE IN PREDICTING GLOMERULAR FILTRATION RATE. ESTIMATED GFR IS NOT APPLICABLE FOR DIALYSIS PATIENTS. PROTHROMBIN TIME/[id number] 06:00:00* Test Item Value Reference Range Comments PROTIME (BEAKER) (test tduo=147) 32.3 seconds 11.7-14.7 INR (BEAKER) (test onjv=710) 3.1 <=5.9 RECOMMENDED COUMADIN/WARFARIN INR THERAPY RANGESSTANDARD DOSE: 2.0 - 3.0 Inclu navid: PROPHYLAXIS for venous thrombosis, systemic embolization; TREATMENT for dayna ous thrombosis and/or pulmonary embolus.HIGH RISK: Target INR is 2.5-3.5 for pat ients with mechanical heart valves.CBC W/PLT COUNT & AUTO [id number] 05:57:00* Test Item Value Reference Range Comments WHITE BLOOD CELL COUNT (BEAKER) (test ajjg=061) 15.6 K/ L 3.5-10.5 RED BLOOD CELL COUNT (BEAKER) (test qyxm=114) 3.26 M/ L 4.63-6.08 HEMOGLOBIN (BEAKER) (test vgoz=694) 9.0 GM/DL 13.7-17.5 HEMATOCRIT (BEAKER) (test nmav=651) 28.0 % 40.1-51.0 MEAN CORPUSCULAR VOLUME (BEAKER) (test rabh=640) 85.9 fL 79.0-92.2 MEAN CORPUSCULAR HEMOGLOBIN (BEAKER) (test rrch=602) 27.6 pg 25.7-32.2 MEAN CORPUSCULAR HEMOGLOBIN CONC (BEAKER) (test rvbn=887) 32.1 GM/DL 32.3-36.5 RED CELL DISTRIBUTION WIDTH (BEAKER) (test jlio=150) 21.3 % 11.6-14.4 PLATELET COUNT (BEAKER) (test ndfs=043) 291 K/CU MM 150-450 MEAN PLATELET VOLUME (BEAKER) (test qugi=772) 10.3 fL 9.4-12.4 NUCLEATED RED BLOOD CELLS (BEAKER) (test bulm=453) 0 /100 WBC 0-0 NEUTROPHILS RELATIVE PERCENT (BEAKER) (test dfty=473) 72 % LYMPHOCYTES RELATIVE PERCENT (BEAKER) (test wdvn=386) 12 % MONOCYTES RELATIVE PERCENT (BEAKER) (test hsgq=188) 11 % EOSINOPHILS RELATIVE PERCENT (BEAKER) (test apbl=912) 4 % BASOPHILS RELATIVE PERCENT (BEAKER) (test bses=480) 1 % NEUTROPHILS ABSOLUTE COUNT (BEAKER) (test ttvo=008) 11.20 K/ L 1.78-5.38 LYMPHOCYTES ABSOLUTE COUNT (BEAKER) (test lywl=933) 1.80 K/ L 1.32-3.57 MONOCYTES ABSOLUTE COUNT (BEAKER) (test yibv=667) 1.65 K/ L 0.30-0.82 EOSINOPHILS ABSOLUTE COUNT (BEAKER) (test aeub=882) 0.66 K/ L 0.04-0.54 BASOPHILS ABSOLUTE COUNT (BEAKER) (test hfdy=023) 0.12 K/ L 0.01-0.08 IMMATURE GRANULOCYTES-RELATIVE PERCENT (BEAKER) (test xtys=9567) 1 % 0-1 BLOOD [id number] 17:00:00* Test Item Value Reference Range Comments CULTURE (BEAKER) (test qjdg=7670) No growth in 5 days CBC W/PLT COUNT & AUTO [id number] 14:39:00* Test Item Value Reference Range Comments WHITE BLOOD CELL COUNT (BEAKER) (test gxde=554) 17.4 K/ L 3.5-10.5 RED BLOOD CELL COUNT (BEAKER) (test dpvh=032) 3.50 M/ L 4.63-6.08 HEMOGLOBIN (BEAKER) (test ksaz=020) 9.5 GM/DL 13.7-17.5 HEMATOCRIT (BEAKER) (test gyfr=663) 30.0 % 40.1-51.0 MEAN CORPUSCULAR VOLUME (BEAKER) (test yrgb=493) 85.7 fL 79.0-92.2 MEAN CORPUSCULAR HEMOGLOBIN (BEAKER) (test vdiu=141) 27.1 pg 25.7-32.2 MEAN CORPUSCULAR HEMOGLOBIN CONC (BEAKER) (test bguo=535) 31.7 GM/DL 32.3-36.5 RED CELL DISTRIBUTION WIDTH (BEAKER) (test xwzy=445) 21.5 % 11.6-14.4 PLATELET COUNT (BEAKER) (test grec=209) 299 K/CU MM 150-450 MEAN PLATELET VOLUME (BEAKER) (test juow=684) 9.9 fL 9.4-12.4 NUCLEATED RED BLOOD CELLS (BEAKER) (test ixan=239) 0 /100 WBC 0-0 NEUTROPHILS RELATIVE PERCENT (BEAKER) (test kkox=317) 77 % LYMPHOCYTES RELATIVE PERCENT (BEAKER) (test tcuc=962) 9 % MONOCYTES RELATIVE PERCENT (BEAKER) (test vaur=959) 9 % EOSINOPHILS RELATIVE PERCENT (BEAKER) (test cvnq=188) 3 % BASOPHILS RELATIVE PERCENT (BEAKER) (test ogsi=265) 1 % NEUTROPHILS ABSOLUTE COUNT (BEAKER) (test bhri=941) 13.44 K/ L 1.78-5.38 LYMPHOCYTES ABSOLUTE COUNT (BEAKER) (test rabd=167) 1.55 K/ L 1.32-3.57 MONOCYTES ABSOLUTE COUNT (BEAKER) (test ltri=163) 1.55 K/ L 0.30-0.82 EOSINOPHILS ABSOLUTE COUNT (BEAKER) (test sdxb=344) 0.51 K/ L 0.04-0.54 BASOPHILS ABSOLUTE COUNT (BEAKER) (test vjee=825) 0.10 K/ L 0.01-0.08 IMMATURE GRANULOCYTES-RELATIVE PERCENT (BEAKER) (test njds=6401) 1 % 0-1 RAD, CHEST, 1 VIEW, NON [id number] 07:44:00Reason for exam:->Assess pulmonary effusionShould this be performed at the bedside?->YesFINAL REPORT Chest one view AP 08/21/2017 7:44 AM CLINICAL INDICATION: Assess pulmonary effusion COMPARISON: 08/20/2017 IMPRESSION: The cardiac silhouette is enlarged, but stable. There is mild pulmonary edema. There are bilateral small to moderate volume layering pleural effusions with adjacent de pendent atelectasis. Superimposed pneumonia should be excluded clinically. Cardi ac support hardware is unchanged in position. Signed: Leonora Kincaid MDReport V erified Date/Time: 08/21/2017 07:44:54 Reading Location: [facility] Reading Room ATE DEHYDROGENASE (LDH)2017-08-21 05:58:00* Test Item Value Reference Range Comments LACTATE DEHYDROGENASE (BEAKER) (test vhdf=353) 319 U/L 125-220 BASIC METABOLIC [id number] 05:58:00* Test Item Value Reference Range Comments SODIUM (BEAKER) (test brzp=115) 132 meq/L 136-145 POTASSIUM (BEAKER) (test twpn=516) 4.4 meq/L 3.5-5.1 CHLORIDE (BEAKER) (test domc=495) 97 meq/L 98-107 CO2 (BEAKER) (test gncj=764) 27 meq/L 22-29 BLOOD UREA NITROGEN (BEAKER) (test ocpz=153) 33 mg/dL 7-21 CREATININE (BEAKER) (test hxus=533) 0.95 mg/dL 0.57-1.25 GLUCOSE RANDOM (BEAKER) (test ayoa=426) 89 mg/dL 70-105 CALCIUM (BEAKER) (test pjlu=669) 9.0 mg/dL 8.4-10.2 EGFR (BEAKER) (test imer=8201) 76 mL/min/1.73 sq m ESTIMATED GFR IS NOT ACCURATE CREATININE CLEARANCE IN PREDICTING GLOMERULAR FILTRATION RATE. ESTIMATED GFR IS NOT APPLICABLE FOR DIALYSIS PATIENTS. PROTHROMBIN TIME/[id number] 05:24:00* Test Item Value Reference Range Comments PROTIME (BEAKER) (test fmfe=500) 33.7 seconds 11.7-14.7 INR (BEAKER) (test yaia=322) 3.3 <=5.9 RECOMMENDED COUMADIN/WARFARIN INR THERAPY RANGESSTANDARD DOSE: 2.0 - 3.0 Inclu navid: PROPHYLAXIS for venous thrombosis, systemic embolization; TREATMENT for dayna ous thrombosis and/or pulmonary embolus.HIGH RISK: Target INR is 2.5-3.5 for pat ients with mechanical heart valves.RAD, CHEST, 1 VIEW, NON [id number] 13:11:00Reason for exam:->Assess pulmonary effusionShould this be performed at the bedside?->YesFINAL REPORT AP chest, two images HISTORY: Pleural effusion COMPARISON: 08/19/2017 IMPRESSION:Supportive lines unchanged. Stable cardiac silhouette. Bibasilar atelectasis and small effusions unchanged. Signed: Nallely Qiu MDReport Verified Date/Time: 08/20/2017 13:11:23 Reading Location: [address] Transitional Reading Room [id number] 05:15:00* Test Item Value Reference Range Comments MAGNESIUM (BEAKER) (test zbss=820) 1.7 mg/dL 1.6-2.6 BASIC METABOLIC [id number] 05:15:00* Test Item Value Reference Range Comments SODIUM (BEAKER) (test peir=021) 134 meq/L 136-145 POTASSIUM (BEAKER) (test wyuu=267) 3.9 meq/L 3.5-5.1 CHLORIDE (BEAKER) (test njxw=833) 97 meq/L 98-107 CO2 (BEAKER) (test jlif=190) 28 meq/L 22-29 BLOOD UREA NITROGEN (BEAKER) (test paha=425) 35 mg/dL 7-21 CREATININE (BEAKER) (test hkff=919) 0.94 mg/dL 0.57-1.25 GLUCOSE RANDOM (BEAKER) (test kpna=335) 84 mg/dL 70-105 CALCIUM (BEAKER) (test xmgs=575) 8.8 mg/dL 8.4-10.2 EGFR (BEAKER) (test plbo=1961) 77 mL/min/1.73 sq m ESTIMATED GFR IS NOT ACCURATE CREATININE CLEARANCE IN PREDICTING GLOMERULAR FILTRATION RATE. ESTIMATED GFR IS NOT APPLICABLE FOR DIALYSIS PATIENTS. LACTATE DEHYDROGENASE (LDH)2017-08-20 05:15:00* Test Item Value Reference Range Comments LACTATE DEHYDROGENASE (BEAKER) (test qmfb=017) 360 U/L 125-220 PROTHROMBIN TIME/[id number] 04:55:00* Test Item Value Reference Range Comments PROTIME (BEAKER) (test eyvx=023) 31.7 seconds 11.7-14.7 INR (BEAKER) (test myyo=816) 3.1 <=5.9 RECOMMENDED COUMADIN/WARFARIN INR THERAPY RANGESSTANDARD DOSE: 2.0 - 3.0 Inclu navid: PROPHYLAXIS for venous thrombosis, systemic embolization; TREATMENT for dayna ous thrombosis and/or pulmonary embolus.HIGH RISK: Target INR is 2.5-3.5 for pat ients with mechanical heart valves.While on warfarin.CBC (HEMOGRAM ONLY) 2017-08-20 04:55:00* Test Item Value Reference Range Comments WHITE BLOOD CELL COUNT (BEAKER) (test ogaz=974) 14.2 K/ L 3.5-10.5 RED BLOOD CELL COUNT (BEAKER) (test vhaj=121) 3.23 M/ L 4.63-6.08 HEMOGLOBIN (BEAKER) (test xbqs=758) 8.8 GM/DL 13.7-17.5 HEMATOCRIT (BEAKER) (test nnzy=093) 27.6 % 40.1-51.0 MEAN CORPUSCULAR VOLUME (BEAKER) (test gira=127) 85.4 fL 79.0-92.2 MEAN CORPUSCULAR HEMOGLOBIN (BEAKER) (test peqg=797) 27.2 pg 25.7-32.2 MEAN CORPUSCULAR HEMOGLOBIN CONC (BEAKER) (test vtqh=970) 31.9 GM/DL 32.3-36.5 RED CELL DISTRIBUTION WIDTH (BEAKER) (test pgkk=919) 21.7 % 11.6-14.4 PLATELET COUNT (BEAKER) (test jndb=745) 228 K/CU MM 150-450 MEAN PLATELET VOLUME (BEAKER) (test rfah=205) 9.7 fL 9.4-12.4 NUCLEATED RED BLOOD CELLS (BEAKER) (test lamu=733) 0 /100 WBC 0-0 BLOOD [id number] 17:00:00* Test Item Value Reference Range Comments CULTURE (BEAKER) (test ndny=4027) No growth in 5 days BLOOD [id number] 17:00:00* Test Item Value Reference Range Comments CULTURE (BEAKER) (test xqzz=5545) No growth in 5 days RAD, CHEST, 1 VIEW, NON [id number] 14:56:00Reason for exam:->Assess pulmonary effusionShould this be performed at the bedside?->YesFINAL REPORT AP chest HISTORY: Effusion COMPARISON: 08/18/2018 IMPRESSION:Supportive lines unchanged. Cardiomegaly similar to previous. Mo derate effusions unchanged. No pneumothorax. Signed: Nallely Qiu MDReport Ve rified Date/Time: 08/19/2017 14:56:41 Reading Location: [address] Reading Room Electronically signed by: NALLELY QIU M.D. on 08/19 02:56 PM CBC (HEMOGRAM ONLY)2017-08-19 06:15:00* Test Item Value Reference Range Comments WHITE BLOOD CELL COUNT (BEAKER) (test ardr=975) 13.1 K/ L 3.5-10.5 RED BLOOD CELL COUNT (BEAKER) (test zvga=217) 3.13 M/ L 4.63-6.08 HEMOGLOBIN (BEAKER) (test tkdg=722) 8.5 GM/DL 13.7-17.5 HEMATOCRIT (BEAKER) (test rqsx=103) 27.0 % 40.1-51.0 MEAN CORPUSCULAR VOLUME (BEAKER) (test vgzk=996) 86.3 fL 79.0-92.2 MEAN CORPUSCULAR HEMOGLOBIN (BEAKER) (test smfy=732) 27.2 pg 25.7-32.2 MEAN CORPUSCULAR HEMOGLOBIN CONC (BEAKER) (test fxqo=938) 31.5 GM/DL 32.3-36.5 RED CELL DISTRIBUTION WIDTH (BEAKER) (test sksr=842) 22.1 % 11.6-14.4 PLATELET COUNT (BEAKER) (test hcii=191) 219 K/CU MM 150-450 MEAN PLATELET VOLUME (BEAKER) (test mdvt=180) 10.3 fL 9.4-12.4 NUCLEATED RED BLOOD CELLS (BEAKER) (test bcnx=369) 0 /100 WBC 0-0 [id number] 05:54:00* Test Item Value Reference Range Comments MAGNESIUM (BEAKER) (test fvqb=337) 1.6 mg/dL 1.6-2.6 BASIC METABOLIC [id number] 05:54:00* Test Item Value Reference Range Comments SODIUM (BEAKER) (test uckw=934) 134 meq/L 136-145 POTASSIUM (BEAKER) (test srtt=934) 3.7 meq/L 3.5-5.1 CHLORIDE (BEAKER) (test kwnd=153) 99 meq/L 98-107 CO2 (BEAKER) (test rjkm=403) 27 meq/L 22-29 BLOOD UREA NITROGEN (BEAKER) (test uqyg=930) 35 mg/dL 7-21 CREATININE (BEAKER) (test zhgx=327) 1.06 mg/dL 0.57-1.25 GLUCOSE RANDOM (BEAKER) (test tzwf=907) 95 mg/dL 70-105 CALCIUM (BEAKER) (test vbpj=901) 8.6 mg/dL 8.4-10.2 EGFR (BEAKER) (test hjxq=8383) 67 mL/min/1.73 sq m ESTIMATED GFR IS NOT ACCURATE CREATININE CLEARANCE IN PREDICTING GLOMERULAR FILTRATION RATE. ESTIMATED GFR IS NOT APPLICABLE FOR DIALYSIS PATIENTS. LACTATE DEHYDROGENASE (LDH)2017-08-19 05:54:00* Test Item Value Reference Range Comments LACTATE DEHYDROGENASE (BEAKER) (test spcl=775) 304 U/L 125-220 PROTHROMBIN TIME/[id number] 05:06:00* Test Item Value Reference Range Comments PROTIME (BEAKER) (test lano=447) 28.4 seconds 11.7-14.7 INR (BEAKER) (test sest=680) 2.7 <=5.9 RECOMMENDED COUMADIN/WARFARIN INR THERAPY RANGESSTANDARD DOSE: 2.0 - 3.0 Inclu navid: PROPHYLAXIS for venous thrombosis, systemic embolization; TREATMENT for dayna ous thrombosis and/or pulmonary embolus.HIGH RISK: Target INR is 2.5-3.5 for pat ients with mechanical heart valves.While on warfarin.RAD, ANKLE, 2 VIEWS, LEFT 2017-08-18 13:11:00Reason for exam:->r/o fractureFINAL REPORT TECHNIQUE: Frontal and lateral radiographs of the left ankle dated 08/18/2017 HISTORY: R/O fracture COMPARISON: None. FINDINGS:There are two ossific densities projected just below the lateral malleolus either accessory ossicles or from a prior injury. No evidence of an acute fracture or dislocation. Bones are osteopenic. Degenerative changes are seen in the tibiotalar joint and several tarsometatarsal joints. No bone erosion or soft tissue nodule seen. No radiodense foreign body or subcutaneous emphysema. There is soft tissue swelling of the ankle. IMPRESSION:No fracture or dislocation. Soft tissue swelling of the ankle. Signed: Maria C Sprague MDReport Verified Date/Time: 08/18/2017 13:11:09 Reading Location: [facility] Radiology Reading Room , CHEST, 1 VIEW, NON DEPT 2017-08-18 11:21:00Reason for exam:->Assess pulmonary effusionShould this be performed at the bedside?->YesFINAL REPORT Chest one view compared to August 16, 2017 Discussion: Airspace opacities and effusions are noted perhaps minimally worse since the prior study. Right PICC line again noted. Left chest pacemaker and left ventricular assist device are present. No pneumothorax. IMPRESSIONS: Airspace and effusion opacifications appear minimally worse. Signed: Sukhwinder Baezort Verified Date/Time: 08/18/2017 11:21:37 Reading Location: [facility] Radiology Reading Room [id number] 06:29:00* Test Item Value Reference Range Comments FERRITIN (BEAKER) (test bejl=560) 802 ng/mL 5-275 VITAMIN B12 AND [id number] 06:29:00* Test Item Value Reference Range Comments VITAMIN B12 (BEAKER) (test zqil=492) 529 pg/mL 213-816 FOLATE (BEAKER) (test mqei=461) 3.8 ng/mL >=7.0 IRON, TIBC, % SAT. (WITHOUT FERRITIN)2017-08-18 06:02:00* Test Item Value Reference Range Comments IRON (BEAKER) (test ldwl=942) 18 ug/dL 40-160 TOTAL IRON BINDING CAPACITY (BEAKER) (test hdbj=172) 154 ug/dL 250-450 IRON % SATURATION (2) (BEAKER) (test eluj=6878) 12 % 20-55 [id number] 05:58:00* Test Item Value Reference Range Comments MAGNESIUM (BEAKER) (test rdjd=452) 1.5 mg/dL 1.6-2.6 BASIC METABOLIC [id number] 05:58:00* Test Item Value Reference Range Comments SODIUM (BEAKER) (test tvwv=817) 136 meq/L 136-145 POTASSIUM (BEAKER) (test emmz=489) 3.6 meq/L 3.5-5.1 CHLORIDE (BEAKER) (test fnkf=191) 102 meq/L 98-107 CO2 (BEAKER) (test nufr=863) 25 meq/L 22-29 BLOOD UREA NITROGEN (BEAKER) (test bbvg=372) 33 mg/dL 7-21 CREATININE (BEAKER) (test hxhx=850) 1.01 mg/dL 0.57-1.25 GLUCOSE RANDOM (BEAKER) (test jgea=388) 80 mg/dL 70-105 CALCIUM (BEAKER) (test obkf=195) 8.5 mg/dL 8.4-10.2 EGFR (BEAKER) (test rkml=6160) 71 mL/min/1.73 sq m ESTIMATED GFR IS NOT ACCURATE CREATININE CLEARANCE IN PREDICTING GLOMERULAR FILTRATION RATE. ESTIMATED GFR IS NOT APPLICABLE FOR DIALYSIS PATIENTS. LACTATE DEHYDROGENASE (LDH)2017-08-18 05:58:00* Test Item Value Reference Range Comments LACTATE DEHYDROGENASE (BEAKER) (test nwuh=933) 285 U/L 125-220 [id number] 05:49:00* Test Item Value Reference Range Comments PARTIAL THROMBOPLASTIN TIME (BEAKER) (test mfuz=649) 89.9 seconds 22.5-36.0 While on warfarin.PROTHROMBIN TIME/[id number] 05:48:00* Test Item Value Reference Range Comments PROTIME (BEAKER) (test znop=459) 25.1 seconds 11.7-14.7 INR (BEAKER) (test egco=161) 2.3 <=5.9 RECOMMENDED COUMADIN/WARFARIN INR THERAPY RANGESSTANDARD DOSE: 2.0 - 3.0 Inclu navid: PROPHYLAXIS for venous thrombosis, systemic embolization; TREATMENT for dayna ous thrombosis and/or pulmonary embolus.HIGH RISK: Target INR is 2.5-3.5 for pat ients with mechanical heart valves.While on warfarin.CBC (HEMOGRAM ONLY) 2017-08-18 05:43:00* Test Item Value Reference Range Comments WHITE BLOOD CELL COUNT (BEAKER) (test xqlw=862) 13.7 K/ L 3.5-10.5 RED BLOOD CELL COUNT (BEAKER) (test abas=051) 3.07 M/ L 4.63-6.08 HEMOGLOBIN (BEAKER) (test tpxx=053) 8.5 GM/DL 13.7-17.5 HEMATOCRIT (BEAKER) (test elhu=531) 26.5 % 40.1-51.0 MEAN CORPUSCULAR VOLUME (BEAKER) (test bwlc=713) 86.3 fL 79.0-92.2 MEAN CORPUSCULAR HEMOGLOBIN (BEAKER) (test axit=981) 27.7 pg 25.7-32.2 MEAN CORPUSCULAR HEMOGLOBIN CONC (BEAKER) (test egsa=255) 32.1 GM/DL 32.3-36.5 RED CELL DISTRIBUTION WIDTH (BEAKER) (test ihkv=553) 22.5 % 11.6-14.4 PLATELET COUNT (BEAKER) (test lchy=165) 211 K/CU MM 150-450 MEAN PLATELET VOLUME (BEAKER) (test vbof=781) 10.3 fL 9.4-12.4 NUCLEATED RED BLOOD CELLS (BEAKER) (test pnzf=747) 0 /100 WBC 0-0 [id number] 21:28:00* Test Item Value Reference Range Comments PARTIAL THROMBOPLASTIN TIME (BEAKER) (test qqvp=750) 71.6 seconds 22.5-36.0 [id number] 13:41:00* Test Item Value Reference Range Comments PARTIAL THROMBOPLASTIN TIME (BEAKER) (test mgeq=621) 68.6 seconds 22.5-36.0 [id number] 06:50:00* Test Item Value Reference Range Comments PARTIAL THROMBOPLASTIN TIME (BEAKER) (test ifed=353) 92.9 seconds 22.5-36.0 While on warfarin.LACTATE DEHYDROGENASE (LDH)2017-08-17 04:42:00* Test Item Value Reference Range Comments LACTATE DEHYDROGENASE (BEAKER) (test zqqw=750) 259 U/L 125-220 BASIC METABOLIC [id number] 04:42:00* Test Item Value Reference Range Comments SODIUM (BEAKER) (test bzve=789) 135 meq/L 136-145 POTASSIUM (BEAKER) (test pglj=868) 3.3 meq/L 3.5-5.1 CHLORIDE (BEAKER) (test csbs=380) 103 meq/L 98-107 CO2 (BEAKER) (test kjmh=979) 24 meq/L 22-29 BLOOD UREA NITROGEN (BEAKER) (test kdpo=651) 32 mg/dL 7-21 CREATININE (BEAKER) (test oopo=668) 0.99 mg/dL 0.57-1.25 GLUCOSE RANDOM (BEAKER) (test ycyy=020) 92 mg/dL 70-105 CALCIUM (BEAKER) (test ddgo=282) 8.2 mg/dL 8.4-10.2 EGFR (BEAKER) (test hlyt=0545) 73 mL/min/1.73 sq m ESTIMATED GFR IS NOT ACCURATE CREATININE CLEARANCE IN PREDICTING GLOMERULAR FILTRATION RATE. ESTIMATED GFR IS NOT APPLICABLE FOR DIALYSIS PATIENTS. OXYGEN SATURATION, [id number] 04:30:00* Test Item Value Reference Range Comments O2 SATURATION (MEASURED) (BEAKER) (test dvzo=4860) 64.5 % PROTHROMBIN TIME/[id number] 04:26:00* Test Item Value Reference Range Comments PROTIME (BEAKER) (test oohz=997) 19.3 seconds 11.7-14.7 INR (BEAKER) (test exol=546) 1.6 <=5.9 RECOMMENDED COUMADIN/WARFARIN INR THERAPY RANGESSTANDARD DOSE: 2.0 - 3.0 Inclu navid: PROPHYLAXIS for venous thrombosis, systemic embolization; TREATMENT for dayna ous thrombosis and/or pulmonary embolus.HIGH RISK: Target INR is 2.5-3.5 for pat ients with mechanical heart valves.While on warfarin.CBC (HEMOGRAM ONLY) 2017-08-17 04:20:00* Test Item Value Reference Range Comments WHITE BLOOD CELL COUNT (BEAKER) (test nrgr=600) 13.2 K/ L 3.5-10.5 RED BLOOD CELL COUNT (BEAKER) (test erfb=884) 3.07 M/ L 4.63-6.08 HEMOGLOBIN (BEAKER) (test bgzy=629) 8.6 GM/DL 13.7-17.5 HEMATOCRIT (BEAKER) (test glxm=956) 26.5 % 40.1-51.0 MEAN CORPUSCULAR VOLUME (BEAKER) (test usdk=028) 86.3 fL 79.0-92.2 MEAN CORPUSCULAR HEMOGLOBIN (BEAKER) (test wdqr=698) 28.0 pg 25.7-32.2 MEAN CORPUSCULAR HEMOGLOBIN CONC (BEAKER) (test pcqi=195) 32.5 GM/DL 32.3-36.5 RED CELL DISTRIBUTION WIDTH (BEAKER) (test zjqe=335) 22.3 % 11.6-14.4 PLATELET COUNT (BEAKER) (test oobb=855) 192 K/CU MM 150-450 MEAN PLATELET VOLUME (BEAKER) (test rput=042) 10.0 fL 9.4-12.4 NUCLEATED RED BLOOD CELLS (BEAKER) (test njtg=188) 0 /100 WBC 0-0 [id number] 20:30:00* Test Item Value Reference Range Comments POTASSIUM (BEAKER) (test sint=208) 3.3 meq/L 3.5-5.1 Check Serum Potassium level 2 hours after oral potassium replacement completed o r 30 min after intravenous potassium replacement.[id number] 20:30:00* Test Item Value Reference Range Comments MAGNESIUM (BEAKER) (test ujhx=634) 1.4 mg/dL 1.6-2.6 Check Serum Potassium level 2 hours after oral potassium replacement completed o r 30 min after intravenous potassium replacement.[id number] 12:56:00* Test Item Value Reference Range Comments PARTIAL THROMBOPLASTIN TIME (BEAKER) (test cmqd=932) 75.2 seconds 22.5-36.0 URINE [id number] 11:07:00* Test Item Value Reference Range Comments CULTURE (BEAKER) (test xnlm=1460) No growth VANCOMYCIN LEVEL, [id number] 09:48:00* Test Item Value Reference Range Comments VANCOMYCIN RANDOM (BEAKER) (test wliw=866) 14.7 ug/mL Reference Range: No NormalsSPUTUM CULTURE + GRAM [id number] 08:28:00* Test Item Value Reference Range Comments CULTURE (BEAKER) (test dsgh=6778) 4+ Normal respiratory abdiel present GRAM STAIN RESULT (BEAKER) (test sxnr=3380) 3+ WBCs GRAM STAIN RESULT (BEAKER) (test qfrl=32842) 0-5 epithelial cells GRAM STAIN RESULT (BEAKER) (test wyvi=77859) <1+ gram positive cocci in clusters RAD, CHEST, 1 VIEW, NON [id number] 08:25:00Reason for exam:->s/p LVADFINAL REPORT Chest one view compared to August 15, 2017 Discussion: Bilateral mid to low lung interstitial opacities and small bilateral effusions are unchanged. No pneumothorax. Left chest devices and right PICC line again noted. Signed: Sukhwinder Baez Verified Date/Time: 08/16/2017 08 :25:49 Reading Location: [facility] Radiology Reading Room Electronicall y signed by: SUKHWINDER BAEZ M.D. on 08/16/2017 08:25 AM LACTATE DEHYDROGENASE (LDH)2017-08-16 07:41:00* Test Item Value Reference Range Comments LACTATE DEHYDROGENASE (BEAKER) (test init=257) 385 U/L 125-220 Specimen slightly hemolyzed BASIC METABOLIC [id number] 07:41:00* Test Item Value Reference Range Comments SODIUM (BEAKER) (test hjhj=841) 133 meq/L 136-145 POTASSIUM (BEAKER) (test most=602) 3.3 meq/L 3.5-5.1 Specimen slightly hemolyzed CHLORIDE (BEAKER) (test oexo=749) 101 meq/L 98-107 CO2 (BEAKER) (test wjji=212) 23 meq/L 22-29 BLOOD UREA NITROGEN (BEAKER) (test psuu=673) 34 mg/dL 7-21 CREATININE (BEAKER) (test sgkh=962) 1.16 mg/dL 0.57-1.25 Specimen slightly hemolyzed GLUCOSE RANDOM (BEAKER) (test soeb=673) 89 mg/dL 70-105 CALCIUM (BEAKER) (test bgho=153) 7.9 mg/dL 8.4-10.2 EGFR (BEAKER) (test yedz=6445) 61 mL/min/1.73 sq m ESTIMATED GFR IS NOT ACCURATE CREATININE CLEARANCE IN PREDICTING GLOMERULAR FILTRATION RATE. ESTIMATED GFR IS NOT APPLICABLE FOR DIALYSIS PATIENTS. LACTIC ACID, ARTERIAL, WHOLE [id number] 07:25:00* Test Item Value Reference Range Comments LACTATE BLOOD ARTERIAL (2) (BEAKER) (test yltk=1646) 0.8 mmol/L 0.5-2.2 Specimen slightly hemolyzed Effective 11/04/2015: Units/Reference Range ChangeNew: 0.5-2.2 mmol/L Previous: 5 -20 mg/[id number] 07:14:00* Test Item Value Reference Range Comments PARTIAL THROMBOPLASTIN TIME (BEAKER) (test euzo=648) 85.7 seconds 22.5-36.0 While on warfarin.PROTHROMBIN TIME/[id number] 07:13:00* Test Item Value Reference Range Comments PROTIME (BEAKER) (test rnzt=578) 18.4 seconds 11.7-14.7 INR (BEAKER) (test nxpm=141) 1.5 <=5.9 RECOMMENDED COUMADIN/WARFARIN INR THERAPY RANGESSTANDARD DOSE: 2.0 - 3.0 Inclu navid: PROPHYLAXIS for venous thrombosis, systemic embolization; TREATMENT for dayna ous thrombosis and/or pulmonary embolus.HIGH RISK: Target INR is 2.5-3.5 for pat ients with mechanical heart valves.While on warfarin.CBC (HEMOGRAM ONLY) 2017-08-16 07:10:00* Test Item Value Reference Range Comments WHITE BLOOD CELL COUNT (BEAKER) (test evtw=962) 13.6 K/ L 3.5-10.5 RED BLOOD CELL COUNT (BEAKER) (test empg=966) 3.18 M/ L 4.63-6.08 HEMOGLOBIN (BEAKER) (test bfnf=923) 8.7 GM/DL 13.7-17.5 HEMATOCRIT (BEAKER) (test mlji=270) 27.1 % 40.1-51.0 MEAN CORPUSCULAR VOLUME (BEAKER) (test blbz=409) 85.2 fL 79.0-92.2 MEAN CORPUSCULAR HEMOGLOBIN (BEAKER) (test agtd=525) 27.4 pg 25.7-32.2 MEAN CORPUSCULAR HEMOGLOBIN CONC (BEAKER) (test ixdf=754) 32.1 GM/DL 32.3-36.5 RED CELL DISTRIBUTION WIDTH (BEAKER) (test mdiu=658) 22.3 % 11.6-14.4 PLATELET COUNT (BEAKER) (test dbda=071) 192 K/CU MM 150-450 MEAN PLATELET VOLUME (BEAKER) (test kxpt=425) 11.7 fL 9.4-12.4 NUCLEATED RED BLOOD CELLS (BEAKER) (test paxn=773) 0 /100 WBC 0-0 OXYGEN SATURATION, [id number] 07:01:00* Test Item Value Reference Range Comments O2 SATURATION (MEASURED) (BEAKER) (test dopn=8313) 69.7 % POCT-GLUCOSE [id number] 17:42:00* Test Item Value Reference Range Comments POC-GLUCOSE METER (BEAKER) (test lymd=3069) 134 mg/dL 70-110 TESTED AT [address] [address] U/S, [id number] 17:25:00Laterality?->LeftReason for exam:->left sided pleural effusionFINAL REPORT Ultrasound guided left thoracentesis: Pre/post procedure diagnosis: Pleural effusion Approach: Left Posterior Lateral Intercostal Sedation: None Local Anesthesia: 1% Xylocaine Findings: The risks, benefits, and alternatives of the procedure were explained. Questions were answered, and informed, written consent was then obtained. After an appropriate site for drainage was found, the skin was prepped and draped, and local anesthesia was given. A 5 F multipurpose catheter was inserted into the left pleural space, and approximately 1100 cc of serosanguineous pleural fluid was aspirated. Specimen were collected for the lab. No immediate complications were noted. A post-procedure chest radiograph is pending. Estimated blood loss: None. Impression: Uncomplicated ultrasound-guided left thoracentesis performed by Leila Lan PA-C. Signed: Braxton Johnson MDReport Verified Date/Time: 08/15/2017 17:25:49 Reading Location: [facility] B1 C013X [facility] Consult Reading Room , CHEST, 1 VIEW, NON [id number] 16:18:00Reason for exam:->left pleural effusion s/p thora Should this be performed at the bedside?->Yes Reason for exam:->left pleural effusion s/p thora Should this be performed at the bedside?- >YesFINAL REPORT TECHNIQUE: Frontal chest radiograph dated 08/15/2017. CLINICAL HISTORY: Left pleural effusion s/p left thoracentesis COMPARISON STUDY: Chest radiograph performed earlier the same day. IMPRESSION: Mediastinal drain has been removed. Right-sided PICC, left ventricular assist device and left-sided defibrillator are unchanged. Left pleural effusion has decreased in size. Small right pleural effusion is unchanged. No pneumothorax. Cardiomediastinal silhouette is stable in appearance. Stable pulmonary vascular congestion. Midline sternotomy wires are intact and well aligned. No fracture. Degenerative changes are seen in the spine. Signed: Maria C Sprague Verified Date/Time: 08/15/2017 16:18:30 Reading Location: [facility] Radiology Reading Room , CHEST, 1 VIEW, NON [id number] 08:09:00Reason for exam:->CT managementFINAL REPORT Chest one view compared to August 14 Discussion: Cardiac prominence, interstitial edema, moderate left and small right effusions are noted. Drainage tube, right PICC line, left chest pacemaker, left ventricular assist device are again noted. No pneumothorax. IMPRESSIONS: No change Signed: Sukhwinder Baez Verified Date/Time: 08/15/2017 08:09:38 Reading Location: [facility] Radiology Reading Room EN SATURATION, [id number] 07:52:00* Test Item Value Reference Range Comments O2 SATURATION (MEASURED) (BEAKER) (test adzg=3238) 61.9 % OXYGEN SATURATION, [id number] 06:50:00* Test Item Value Reference Range Comments O2 SATURATION (MEASURED) (BEAKER) (test opml=1964) 63.9 % [id number] 05:52:00* Test Item Value Reference Range Comments MAGNESIUM (BEAKER) (test oiid=553) 1.7 mg/dL 1.6-2.6 BASIC METABOLIC [id number] 05:52:00* Test Item Value Reference Range Comments SODIUM (BEAKER) (test lllm=545) 136 meq/L 136-145 POTASSIUM (BEAKER) (test tjbr=104) 3.5 meq/L 3.5-5.1 CHLORIDE (BEAKER) (test xrlw=725) 105 meq/L 98-107 CO2 (BEAKER) (test rsyp=123) 23 meq/L 22-29 BLOOD UREA NITROGEN (BEAKER) (test vvck=823) 35 mg/dL 7-21 CREATININE (BEAKER) (test vtuz=905) 1.26 mg/dL 0.57-1.25 GLUCOSE RANDOM (BEAKER) (test ayga=631) 103 mg/dL 70-105 CALCIUM (BEAKER) (test bbhy=264) 8.4 mg/dL 8.4-10.2 EGFR (BEAKER) (test abtl=9644) 55 mL/min/1.73 sq m ESTIMATED GFR IS NOT ACCURATE CREATININE CLEARANCE IN PREDICTING GLOMERULAR FILTRATION RATE. ESTIMATED GFR IS NOT APPLICABLE FOR DIALYSIS PATIENTS. LACTATE DEHYDROGENASE (LDH)2017-08-15 05:52:00* Test Item Value Reference Range Comments LACTATE DEHYDROGENASE (BEAKER) (test kvlu=365) 315 U/L 125-220 LACTIC ACID, ARTERIAL, WHOLE [id number] 05:49:00* Test Item Value Reference Range Comments LACTATE BLOOD ARTERIAL (2) (BEAKER) (test rndn=9360) 0.9 mmol/L 0.5-2.2 Specimen slightly hemolyzed Effective 11/04/2015: Units/Reference Range ChangeNew: 0.5-2.2 mmol/L Previous: 5 -20 mg/dLPROTHROMBIN TIME/[id number] 05:41:00* Test Item Value Reference Range Comments PROTIME (BEAKER) (test smtx=978) 17.9 seconds 11.7-14.7 INR (BEAKER) (test jifo=738) 1.5 <=5.9 RECOMMENDED COUMADIN/WARFARIN INR THERAPY RANGESSTANDARD DOSE: 2.0 - 3.0 Inclu navid: PROPHYLAXIS for venous thrombosis, systemic embolization; TREATMENT for dayna ous thrombosis and/or pulmonary embolus.HIGH RISK: Target INR is 2.5-3.5 for pat ients with mechanical heart valves.While on warfarin.CBC (HEMOGRAM ONLY) 2017-08-15 05:29:00* Test Item Value Reference Range Comments WHITE BLOOD CELL COUNT (BEAKER) (test kapf=308) 11.0 K/ L 3.5-10.5 RED BLOOD CELL COUNT (BEAKER) (test geat=865) 3.09 M/ L 4.63-6.08 HEMOGLOBIN (BEAKER) (test dcle=042) 8.5 GM/DL 13.7-17.5 HEMATOCRIT (BEAKER) (test snsk=957) 26.4 % 40.1-51.0 MEAN CORPUSCULAR VOLUME (BEAKER) (test tegu=748) 85.4 fL 79.0-92.2 MEAN CORPUSCULAR HEMOGLOBIN (BEAKER) (test ryhs=666) 27.5 pg 25.7-32.2 MEAN CORPUSCULAR HEMOGLOBIN CONC (BEAKER) (test ttyb=234) 32.2 GM/DL 32.3-36.5 RED CELL DISTRIBUTION WIDTH (BEAKER) (test lisj=290) 21.9 % 11.6-14.4 PLATELET COUNT (BEAKER) (test xonn=968) 156 K/CU MM 150-450 MEAN PLATELET VOLUME (BEAKER) (test jrhb=758) 11.2 fL 9.4-12.4 NUCLEATED RED BLOOD CELLS (BEAKER) (test lrar=989) 0 /100 WBC 0-0 [id number] 21:44:00* Test Item Value Reference Range Comments PARTIAL THROMBOPLASTIN TIME (BEAKER) (test aihq=221) 73.4 seconds 22.5-36.0 [id number] 12:39:00* Test Item Value Reference Range Comments PARTIAL THROMBOPLASTIN TIME (BEAKER) (test hwma=264) 102.2 seconds 22.5-36.0 RAD, CHEST, 1 VIEW, NON [id number] 07:38:00Reason for exam:->CT management FINAL REPORT Chest one view compared to August 12 Discu ssion: Pulmonary congestion and left greater than right effusions unchanged. No pneumothorax. Left chest pacemaker, lines, tubes, left ventricular assist device again noted. Signed: Sukhwinder Baezort Verified Date/Time: 08/14/2017 07:3 8:46 Reading Location: [facility] Reading Room ATE DEHYDROGENASE (LDH)2017-08-14 04:33:00* Test Item Value Reference Range Comments LACTATE DEHYDROGENASE (BEAKER) (test upbc=218) 324 U/L 125-220 BASIC METABOLIC [id number] 04:33:00* Test Item Value Reference Range Comments SODIUM (BEAKER) (test jtcb=673) 135 meq/L 136-145 POTASSIUM (BEAKER) (test vcin=832) 3.0 meq/L 3.5-5.1 CHLORIDE (BEAKER) (test vhdq=272) 106 meq/L 98-107 CO2 (BEAKER) (test vpok=512) 18 meq/L 22-29 BLOOD UREA NITROGEN (BEAKER) (test wslt=868) 34 mg/dL 7-21 CREATININE (BEAKER) (test xvlb=963) 1.37 mg/dL 0.57-1.25 GLUCOSE RANDOM (BEAKER) (test qgtb=366) 88 mg/dL 70-105 CALCIUM (BEAKER) (test fjep=256) 8.4 mg/dL 8.4-10.2 EGFR (BEAKER) (test mnwk=3469) 50 mL/min/1.73 sq m ESTIMATED GFR IS NOT ACCURATE CREATININE CLEARANCE IN PREDICTING GLOMERULAR FILTRATION RATE. ESTIMATED GFR IS NOT APPLICABLE FOR DIALYSIS PATIENTS. LACTIC ACID, ARTERIAL, WHOLE [id number] 04:21:00* Test Item Value Reference Range Comments LACTATE BLOOD ARTERIAL (2) (BEAKER) (test cftv=5853) 0.8 mmol/L 0.5-2.2 Effective 11/04/2015: Units/Reference Range ChangeNew: 0.5-2.2 mmol/L Previous: 5 -20 mg/dLOXYGEN SATURATION, [id number] 04:19:00* Test Item Value Reference Range Comments O2 SATURATION (MEASURED) (BEAKER) (test bpiz=9805) 57.1 % [id number] 04:13:00* Test Item Value Reference Range Comments PARTIAL THROMBOPLASTIN TIME (BEAKER) (test myja=907) 70.4 seconds 22.5-36.0 While on warfarin.PROTHROMBIN TIME/[id number] 04:12:00* Test Item Value Reference Range Comments PROTIME (BEAKER) (test ktof=553) 16.3 seconds 11.7-14.7 INR (BEAKER) (test lybv=579) 1.3 <=5.9 RECOMMENDED COUMADIN/WARFARIN INR THERAPY RANGESSTANDARD DOSE: 2.0 - 3.0 Inclu navid: PROPHYLAXIS for venous thrombosis, systemic embolization; TREATMENT for dayna ous thrombosis and/or pulmonary embolus.HIGH RISK: Target INR is 2.5-3.5 for pat ients with mechanical heart valves.While on warfarin.CBC (HEMOGRAM ONLY) 2017-08-14 03:58:00* Test Item Value Reference Range Comments WHITE BLOOD CELL COUNT (BEAKER) (test tuqp=062) 12.9 K/ L 3.5-10.5 RED BLOOD CELL COUNT (BEAKER) (test znvt=665) 3.20 M/ L 4.63-6.08 HEMOGLOBIN (BEAKER) (test hblv=257) 8.8 GM/DL 13.7-17.5 HEMATOCRIT (BEAKER) (test gnjy=446) 27.0 % 40.1-51.0 MEAN CORPUSCULAR VOLUME (BEAKER) (test isfo=936) 84.4 fL 79.0-92.2 MEAN CORPUSCULAR HEMOGLOBIN (BEAKER) (test qtdg=372) 27.5 pg 25.7-32.2 MEAN CORPUSCULAR HEMOGLOBIN CONC (BEAKER) (test okkz=853) 32.6 GM/DL 32.3-36.5 RED CELL DISTRIBUTION WIDTH (BEAKER) (test mphd=257) 21.3 % 11.6-14.4 PLATELET COUNT (BEAKER) (test mbxn=761) 146 K/CU MM 150-450 MEAN PLATELET VOLUME (BEAKER) (test qifr=329) 11.1 fL 9.4-12.4 NUCLEATED RED BLOOD CELLS (BEAKER) (test csvx=378) 0 /100 WBC 0-0 [id number] 20:57:00* Test Item Value Reference Range Comments PARTIAL THROMBOPLASTIN TIME (BEAKER) (test kfpl=650) 58.2 seconds 22.5-36.0 Prior to initiating heparinPLATELET [id number] 20:47:00* Test Item Value Reference Range Comments PLATELET COUNT (BEAKER) (test diux=501) 151 K/CU MM 150-450 OXYGEN SATURATION, [id number] 17:03:00* Test Item Value Reference Range Comments O2 SATURATION (MEASURED) (BEAKER) (test ayzd=4502) 94.6 % [id number] 15:38:00* Test Item Value Reference Range Comments PARTIAL THROMBOPLASTIN TIME (BEAKER) (test hlmo=886) 59.1 seconds 22.5-36.0 PROTHROMBIN TIME/[id number] 15:37:00* Test Item Value Reference Range Comments PROTIME (BEAKER) (test ilhk=501) 16.5 seconds 11.7-14.7 INR (BEAKER) (test iswu=962) 1.3 <=5.9 RECOMMENDED COUMADIN/WARFARIN INR THERAPY RANGESSTANDARD DOSE: 2.0 - 3.0 Inclu navid: PROPHYLAXIS for venous thrombosis, systemic embolization; TREATMENT for dayna ous thrombosis and/or pulmonary embolus.HIGH RISK: Target INR is 2.5-3.5 for pat ients with mechanical heart valves.[id number] 15:37:00* Test Item Value Reference Range Comments FIBRINOGEN LEVEL (BEAKER) (test ownv=527) 409 mg/dl 225-434 CBC W/PLT COUNT & AUTO [id number] 15:23:00* Test Item Value Reference Range Comments WHITE BLOOD CELL COUNT (BEAKER) (test jobj=225) 12.5 K/ L 3.5-10.5 RED BLOOD CELL COUNT (BEAKER) (test lbjs=216) 3.28 M/ L 4.63-6.08 HEMOGLOBIN (BEAKER) (test qcpd=854) 9.0 GM/DL 13.7-17.5 HEMATOCRIT (BEAKER) (test oubn=873) 27.7 % 40.1-51.0 MEAN CORPUSCULAR VOLUME (BEAKER) (test ysqf=771) 84.5 fL 79.0-92.2 MEAN CORPUSCULAR HEMOGLOBIN (BEAKER) (test lons=611) 27.4 pg 25.7-32.2 MEAN CORPUSCULAR HEMOGLOBIN CONC (BEAKER) (test mfzm=605) 32.5 GM/DL 32.3-36.5 RED CELL DISTRIBUTION WIDTH (BEAKER) (test ammo=910) 21.3 % 11.6-14.4 PLATELET COUNT (BEAKER) (test mfuw=965) 147 K/CU MM 150-450 MEAN PLATELET VOLUME (BEAKER) (test njoc=209) 11.6 fL 9.4-12.4 NUCLEATED RED BLOOD CELLS (BEAKER) (test pfpx=233) 0 /100 WBC 0-0 NEUTROPHILS RELATIVE PERCENT (BEAKER) (test fkjo=771) 76 % LYMPHOCYTES RELATIVE PERCENT (BEAKER) (test lpaj=401) 8 % MONOCYTES RELATIVE PERCENT (BEAKER) (test xzwi=645) 9 % EOSINOPHILS RELATIVE PERCENT (BEAKER) (test bhbl=795) 5 % BASOPHILS RELATIVE PERCENT (BEAKER) (test ubgl=779) 1 % NEUTROPHILS ABSOLUTE COUNT (BEAKER) (test jtph=137) 9.52 K/ L 1.78-5.38 LYMPHOCYTES ABSOLUTE COUNT (BEAKER) (test lbna=209) 1.01 K/ L 1.32-3.57 MONOCYTES ABSOLUTE COUNT (BEAKER) (test pbja=150) 1.11 K/ L 0.30-0.82 EOSINOPHILS ABSOLUTE COUNT (BEAKER) (test mmrc=803) 0.68 K/ L 0.04-0.54 BASOPHILS ABSOLUTE COUNT (BEAKER) (test uodu=315) 0.09 K/ L 0.01-0.08 IMMATURE GRANULOCYTES-RELATIVE PERCENT (BEAKER) (test jnpw=3662) 1 % 0-1 PLATELET [id number] 15:10:00* Test Item Value Reference Range Comments PLATELET COUNT (BEAKER) (test nsqd=600) 147 K/CU MM 150-450 LACTIC ACID, ARTERIAL, WHOLE [id number] 12:14:00* Test Item Value Reference Range Comments LACTATE BLOOD ARTERIAL (2) (BEAKER) (test stye=0971) 1.1 mmol/L 0.5-2.2 Effective 11/04/2015: Units/Reference Range ChangeNew: 0.5-2.2 mmol/L Previous: 5 -20 mg/dLCBC (HEMOGRAM ONLY)2017-08-13 12:03:00* Test Item Value Reference Range Comments WHITE BLOOD CELL COUNT (BEAKER) (test dtej=721) 11.7 K/ L 3.5-10.5 RED BLOOD CELL COUNT (BEAKER) (test kuje=999) 2.85 M/ L 4.63-6.08 HEMOGLOBIN (BEAKER) (test pedk=482) 7.9 GM/DL 13.7-17.5 HEMATOCRIT (BEAKER) (test bbrl=295) 24.1 % 40.1-51.0 MEAN CORPUSCULAR VOLUME (BEAKER) (test cvla=273) 84.6 fL 79.0-92.2 MEAN CORPUSCULAR HEMOGLOBIN (BEAKER) (test ppgc=984) 27.7 pg 25.7-32.2 MEAN CORPUSCULAR HEMOGLOBIN CONC (BEAKER) (test bzya=916) 32.8 GM/DL 32.3-36.5 RED CELL DISTRIBUTION WIDTH (BEAKER) (test soqs=543) 22.1 % 11.6-14.4 PLATELET COUNT (BEAKER) (test fhbm=462) 135 K/CU MM 150-450 MEAN PLATELET VOLUME (BEAKER) (test urkf=751) 11.4 fL 9.4-12.4 NUCLEATED RED BLOOD CELLS (BEAKER) (test kcit=739) 0 /100 WBC 0-0 [id number] 10:01:00* Test Item Value Reference Range Comments MAGNESIUM (BEAKER) (test pnel=015) 2.0 mg/dL 1.6-2.6 Specimen slightly hemolyzed BASIC METABOLIC [id number] 10:01:00* Test Item Value Reference Range Comments SODIUM (BEAKER) (test jecj=459) 137 meq/L 136-145 POTASSIUM (BEAKER) (test zmth=643) 3.2 meq/L 3.5-5.1 Specimen slightly hemolyzed CHLORIDE (BEAKER) (test lyub=863) 108 meq/L 98-107 CO2 (BEAKER) (test xadv=819) 19 meq/L 22-29 BLOOD UREA NITROGEN (BEAKER) (test fojv=363) 36 mg/dL 7-21 CREATININE (BEAKER) (test rwtd=732) 1.60 mg/dL 0.57-1.25 Specimen slightly hemolyzed GLUCOSE RANDOM (BEAKER) (test enkm=901) 104 mg/dL 70-105 CALCIUM (BEAKER) (test xxwx=991) 8.6 mg/dL 8.4-10.2 EGFR (BEAKER) (test lmwk=9758) 42 mL/min/1.73 sq m ESTIMATED GFR IS NOT ACCURATE CREATININE CLEARANCE IN PREDICTING GLOMERULAR FILTRATION RATE. ESTIMATED GFR IS NOT APPLICABLE FOR DIALYSIS PATIENTS. LACTATE DEHYDROGENASE (LDH)2017-08-13 09:57:00* Test Item Value Reference Range Comments LACTATE DEHYDROGENASE (BEAKER) (test obkr=817) 361 U/L 125-220 [id number] 09:44:00* Test Item Value Reference Range Comments FIBRINOGEN LEVEL (BEAKER) (test wvzy=182) 402 mg/dl 225-434 CBC W/PLT COUNT & AUTO [id number] 09:34:00* Test Item Value Reference Range Comments WHITE BLOOD CELL COUNT (BEAKER) (test mrsm=568) 12.0 K/ L 3.5-10.5 RED BLOOD CELL COUNT (BEAKER) (test ngdw=619) 2.79 M/ L 4.63-6.08 HEMOGLOBIN (BEAKER) (test stry=468) 7.7 GM/DL 13.7-17.5 HEMATOCRIT (BEAKER) (test ytgd=582) 23.6 % 40.1-51.0 MEAN CORPUSCULAR VOLUME (BEAKER) (test fsmd=413) 84.6 fL 79.0-92.2 MEAN CORPUSCULAR HEMOGLOBIN (BEAKER) (test afgt=218) 27.6 pg 25.7-32.2 MEAN CORPUSCULAR HEMOGLOBIN CONC (BEAKER) (test cmwy=875) 32.6 GM/DL 32.3-36.5 RED CELL DISTRIBUTION WIDTH (BEAKER) (test qrjk=569) 22.2 % 11.6-14.4 PLATELET COUNT (BEAKER) (test zbcy=716) 144 K/CU MM 150-450 MEAN PLATELET VOLUME (BEAKER) (test cilm=836) 11.9 fL 9.4-12.4 NUCLEATED RED BLOOD CELLS (BEAKER) (test oaya=704) 0 /100 WBC 0-0 NEUTROPHILS RELATIVE PERCENT (BEAKER) (test ptdp=055) 75 % LYMPHOCYTES RELATIVE PERCENT (BEAKER) (test qmfx=519) 9 % MONOCYTES RELATIVE PERCENT (BEAKER) (test yoft=757) 9 % EOSINOPHILS RELATIVE PERCENT (BEAKER) (test bxqd=527) 5 % BASOPHILS RELATIVE PERCENT (BEAKER) (test rttj=620) 1 % NEUTROPHILS ABSOLUTE COUNT (BEAKER) (test qggs=013) 8.99 K/ L 1.78-5.38 LYMPHOCYTES ABSOLUTE COUNT (BEAKER) (test rrrk=283) 1.10 K/ L 1.32-3.57 MONOCYTES ABSOLUTE COUNT (BEAKER) (test mbzk=365) 1.10 K/ L 0.30-0.82 EOSINOPHILS ABSOLUTE COUNT (BEAKER) (test krde=927) 0.60 K/ L 0.04-0.54 BASOPHILS ABSOLUTE COUNT (BEAKER) (test ozsf=424) 0.10 K/ L 0.01-0.08 IMMATURE GRANULOCYTES-RELATIVE PERCENT (BEAKER) (test xugy=4475) 1 % 0-1 [id number] 08:15:00* Test Item Value Reference Range Comments PARTIAL THROMBOPLASTIN TIME (BEAKER) (test izvr=249) 61.3 seconds 22.5-36.0 Prior to initiating heparinCBC (HEMOGRAM ONLY)2017-08-13 05:10:00* Test Item Value Reference Range Comments WHITE BLOOD CELL COUNT (BEAKER) (test vnnv=639) 11.6 K/ L 3.5-10.5 RED BLOOD CELL COUNT (BEAKER) (test fgfu=051) 2.78 M/ L 4.63-6.08 HEMOGLOBIN (BEAKER) (test fohz=245) 7.6 GM/DL 13.7-17.5 HEMATOCRIT (BEAKER) (test gfnv=177) 23.1 % 40.1-51.0 MEAN CORPUSCULAR VOLUME (BEAKER) (test czcz=602) 83.1 fL 79.0-92.2 MEAN CORPUSCULAR HEMOGLOBIN (BEAKER) (test veye=548) 27.3 pg 25.7-32.2 MEAN CORPUSCULAR HEMOGLOBIN CONC (BEAKER) (test hgax=269) 32.9 GM/DL 32.3-36.5 RED CELL DISTRIBUTION WIDTH (BEAKER) (test xopw=701) 22.1 % 11.6-14.4 PLATELET COUNT (BEAKER) (test tzpx=592) 149 K/CU MM 150-450 MEAN PLATELET VOLUME (BEAKER) (test sxep=041) 12.3 fL 9.4-12.4 NUCLEATED RED BLOOD CELLS (BEAKER) (test synd=736) 0 /100 WBC 0-0 OXYGEN SATURATION, [id number] 05:05:00* Test Item Value Reference Range Comments O2 SATURATION (MEASURED) (BEAKER) (test ryge=1322) 51.0 % PROTHROMBIN TIME/[id number] 04:42:00* Test Item Value Reference Range Comments PROTIME (BEAKER) (test bozg=929) 16.1 seconds 11.7-14.7 INR (BEAKER) (test lolw=462) 1.3 <=5.9 RECOMMENDED COUMADIN/WARFARIN INR THERAPY RANGESSTANDARD DOSE: 2.0 - 3.0 Inclu navid: PROPHYLAXIS for venous thrombosis, systemic embolization; TREATMENT for dayna ous thrombosis and/or pulmonary embolus.HIGH RISK: Target INR is 2.5-3.5 for pat ients with mechanical heart valves.While on warfarin.[id number] 01:40:00* Test Item Value Reference Range Comments PARTIAL THROMBOPLASTIN TIME (BEAKER) (test yqog=735) 64.5 seconds 22.5-36.0 CBC W/PLT COUNT & AUTO [id number] 15:18:00* Test Item Value Reference Range Comments WHITE BLOOD CELL COUNT (BEAKER) (test pspm=158) 12.8 K/ L 3.5-10.5 RED BLOOD CELL COUNT (BEAKER) (test rbjr=086) 2.82 M/ L 4.63-6.08 HEMOGLOBIN (BEAKER) (test qisd=589) 7.7 GM/DL 13.7-17.5 HEMATOCRIT (BEAKER) (test gitr=029) 23.4 % 40.1-51.0 MEAN CORPUSCULAR VOLUME (BEAKER) (test vsse=294) 83.0 fL 79.0-92.2 MEAN CORPUSCULAR HEMOGLOBIN (BEAKER) (test jlue=781) 27.3 pg 25.7-32.2 MEAN CORPUSCULAR HEMOGLOBIN CONC (BEAKER) (test dnfd=693) 32.9 GM/DL 32.3-36.5 RED CELL DISTRIBUTION WIDTH (BEAKER) (test sefq=386) 21.5 % 11.6-14.4 PLATELET COUNT (BEAKER) (test zsgz=771) 125 K/CU MM 150-450 MEAN PLATELET VOLUME (BEAKER) (test ppsa=395) 11.9 fL 9.4-12.4 NUCLEATED RED BLOOD CELLS (BEAKER) (test enyc=057) 0 /100 WBC 0-0 NEUTROPHILS RELATIVE PERCENT (BEAKER) (test xkvu=075) 78 % LYMPHOCYTES RELATIVE PERCENT (BEAKER) (test ccci=303) 8 % MONOCYTES RELATIVE PERCENT (BEAKER) (test ovcr=345) 9 % EOSINOPHILS RELATIVE PERCENT (BEAKER) (test yqwp=185) 4 % BASOPHILS RELATIVE PERCENT (BEAKER) (test oavo=092) 1 % NEUTROPHILS ABSOLUTE COUNT (BEAKER) (test tjrn=938) 9.94 K/ L 1.78-5.38 LYMPHOCYTES ABSOLUTE COUNT (BEAKER) (test vyfp=779) 1.03 K/ L 1.32-3.57 MONOCYTES ABSOLUTE COUNT (BEAKER) (test bzmn=444) 1.16 K/ L 0.30-0.82 EOSINOPHILS ABSOLUTE COUNT (BEAKER) (test vxzr=361) 0.48 K/ L 0.04-0.54 BASOPHILS ABSOLUTE COUNT (BEAKER) (test bwer=023) 0.07 K/ L 0.01-0.08 IMMATURE GRANULOCYTES-RELATIVE PERCENT (BEAKER) (test bckq=9324) 1 % 0-1 [id number] 15:01:00* Test Item Value Reference Range Comments PARTIAL THROMBOPLASTIN TIME (BEAKER) (test yopa=064) 51.5 seconds 22.5-36.0 [id number] 14:52:00* Test Item Value Reference Range Comments POTASSIUM (BEAKER) (test lamq=753) 3.9 meq/L 3.5-5.1 Check Serum Potassium level 2 hours after oral potassium replacement completed o r 30 min after intravenous potassium replacement.[id number] 14:52:00* Test Item Value Reference Range Comments MAGNESIUM (BEAKER) (test ohgj=736) 1.9 mg/dL 1.6-2.6 Check Serum Potassium level 2 hours after oral potassium replacement completed o r 30 min after intravenous potassium replacement.BLOOD GAS, [id number] 08:10:00* Test Item Value Reference Range Comments PH ARTERIAL (BEAKER) (test hjml=691) 7.48 7.35-7.45 PCO2 ARTERIAL (BEAKER) (test bvwx=672) 28 mmHg 35-45 PO2 ARTERIAL (BEAKER) (test ejbf=417) 66 mmHg 80-90 O2 SATURATION ARTERIAL (BEAKER) (test ikht=928) 94.8 % 96.0-97.0 HCO3 ARTERIAL (BEAKER) (test vsqw=557) 20 mmol/L 21-29 BASE EXCESS ARTERIAL (BEAKER) (test odhp=063) -2.6 mmol/L -2.0-3.0 PATIENT TEMPERATURE (BEAKER) (test ofvd=3742) 37.0 C FIO2 (BEAKER) (test npvh=2850) 21.0 % GLUCOSE-STAT [id number] 08:10:00* Test Item Value Reference Range Comments GLUCOSE RANDOM (BEAKER) (test mqxt=659) 120 mg/dL 70-110 HGB/HCT (H&H) - STAT [id number] 08:10:00* Test Item Value Reference Range Comments HEMOGLOBIN (BEAKER) (test mdvf=968) 8.6 g/dL 13.0-16.8 HEMATOCRIT (BEAKER) (test hvvq=887) 25.0 % 40.0-50.0 POTASSIUM-STAT [id number] 08:09:00* Test Item Value Reference Range Comments POTASSIUM (BEAKER) (test aoml=008) 3.8 meq/L 3.6-5.5 OXYGEN SATURATION, [id number] 08:05:00* Test Item Value Reference Range Comments O2 SATURATION (MEASURED) (BEAKER) (test zwmm=8924) 47.0 % CBC (HEMOGRAM ONLY)2017-08-12 06:14:00* Test Item Value Reference Range Comments WHITE BLOOD CELL COUNT (BEAKER) (test matt=974) 13.6 K/ L 3.5-10.5 RED BLOOD CELL COUNT (BEAKER) (test schy=885) 2.88 M/ L 4.63-6.08 HEMOGLOBIN (BEAKER) (test zdtz=613) 7.9 GM/DL 13.7-17.5 HEMATOCRIT (BEAKER) (test yqhg=489) 23.9 % 40.1-51.0 MEAN CORPUSCULAR VOLUME (BEAKER) (test hqwl=583) 83.0 fL 79.0-92.2 MEAN CORPUSCULAR HEMOGLOBIN (BEAKER) (test jubj=016) 27.4 pg 25.7-32.2 MEAN CORPUSCULAR HEMOGLOBIN CONC (BEAKER) (test xpat=298) 33.1 GM/DL 32.3-36.5 RED CELL DISTRIBUTION WIDTH (BEAKER) (test kupu=606) 21.4 % 11.6-14.4 PLATELET COUNT (BEAKER) (test uizr=801) 130 K/CU MM 150-450 MEAN PLATELET VOLUME (BEAKER) (test oica=875) 11.6 fL 9.4-12.4 NUCLEATED RED BLOOD CELLS (BEAKER) (test vzkt=624) 0 /100 WBC 0-0 [id number] 05:30:00* Test Item Value Reference Range Comments PROTIME (BEAKER) (test kzlg=032) 15.9 seconds 11.7-14.7 INR (BEAKER) (test zzfh=688) 1.3 <=5.9 PARTIAL THROMBOPLASTIN TIME (BEAKER) (test hhwt=418) 48.8 seconds 22.5-36.0 RECOMMENDED COUMADIN/WARFARIN INR THERAPY RANGESSTANDARD DOSE: 2.0 - 3.0 Inclu navid: PROPHYLAXIS for venous thrombosis, systemic embolization; TREATMENT for dayna ous thrombosis and/or pulmonary embolus.HIGH RISK: Target INR is 2.5-3.5 for pat ients with mechanical heart valves.[id number] 05:15:00* Test Item Value Reference Range Comments PHOSPHORUS (BEAKER) (test dqwp=820) 3.6 mg/dL 2.3-4.7 [id number] 05:15:00* Test Item Value Reference Range Comments MAGNESIUM (BEAKER) (test necq=259) 2.0 mg/dL 1.6-2.6 BASIC METABOLIC [id number] 05:15:00* Test Item Value Reference Range Comments SODIUM (BEAKER) (test dvxv=145) 135 meq/L 136-145 POTASSIUM (BEAKER) (test usfo=794) 3.1 meq/L 3.5-5.1 CHLORIDE (BEAKER) (test wryq=078) 104 meq/L 98-107 CO2 (BEAKER) (test tffo=332) 19 meq/L 22-29 BLOOD UREA NITROGEN (BEAKER) (test sjts=584) 36 mg/dL 7-21 CREATININE (BEAKER) (test vuli=828) 1.81 mg/dL 0.57-1.25 GLUCOSE RANDOM (BEAKER) (test vbhd=771) 106 mg/dL 70-105 CALCIUM (BEAKER) (test jxoz=020) 9.0 mg/dL 8.4-10.2 EGFR (BEAKER) (test ziqk=7174) 36 mL/min/1.73 sq m ESTIMATED GFR IS NOT ACCURATE CREATININE CLEARANCE IN PREDICTING GLOMERULAR FILTRATION RATE. ESTIMATED GFR IS NOT APPLICABLE FOR DIALYSIS PATIENTS. HEPATIC FUNCTION [id number] 05:15:00* Test Item Value Reference Range Comments TOTAL PROTEIN (BEAKER) (test bnoe=506) 5.3 gm/dL 6.0-8.3 ALBUMIN (BEAKER) (test oujd=5655) 3.0 g/dL 3.5-5.0 BILIRUBIN TOTAL (BEAKER) (test wujv=798) 2.2 mg/dL 0.2-1.2 BILIRUBIN DIRECT (BEAKER) (test tkeo=883) 1.6 mg/dL 0.1-0.5 ALKALINE PHOSPHATASE (BEAKER) (test uhfa=986) 95 U/L 40-150 AST (SGOT) (BEAKER) (test fpcl=419) 50 U/L 5-34 ALT (SGPT) (BEAKER) (test tgyt=781) 16 U/L 6-55 LACTATE DEHYDROGENASE (LDH)2017-08-12 05:15:00* Test Item Value Reference Range Comments LACTATE DEHYDROGENASE (BEAKER) (test pnjw=563) 390 U/L 125-220 LACTIC ACID, ARTERIAL, WHOLE [id number] 05:10:00* Test Item Value Reference Range Comments LACTATE BLOOD ARTERIAL (2) (BEAKER) (test tyzl=6875) 1.1 mmol/L 0.5-2.2 Effective 11/04/2015: Units/Reference Range ChangeNew: 0.5-2.2 mmol/L Previous: 5 -20 mg/dLBLOOD GAS, [id number] 04:57:00* Test Item Value Reference Range Comments PH ARTERIAL (BEAKER) (test vsyg=930) 7.44 7.35-7.45 PCO2 ARTERIAL (BEAKER) (test wnee=269) 31 mmHg 35-45 PO2 ARTERIAL (BEAKER) (test cazw=332) 71 mmHg 80-90 O2 SATURATION ARTERIAL (BEAKER) (test mlsa=836) 95.0 % 96.0-97.0 HCO3 ARTERIAL (BEAKER) (test qpvw=036) 20 mmol/L 21-29 BASE EXCESS ARTERIAL (BEAKER) (test cjib=189) -3.6 mmol/L -2.0-3.0 PATIENT TEMPERATURE (BEAKER) (test gvsn=5801) 37.0 C FIO2 (BEAKER) (test oybm=3362) 21.0 % CALCIUM, [id number] 04:57:00* Test Item Value Reference Range Comments CALCIUM IONIZED (BEAKER) (test lnob=500) 1.22 mmol/L 1.12-1.27 PH, BLOOD (BEAKER) (test qaut=2574) 7.44 OXYGEN SATURATION, [id number] 04:56:00* Test Item Value Reference Range Comments O2 SATURATION (MEASURED) (BEAKER) (test sjol=3324) 57.4 % RAD, CHEST, 1 VIEW, NON [id number] 03:07:00Reason for exam:->Intubated, LVAD and PAC in placeShould this be performed at the bedside?->YesFINAL REPORT RAD, CHEST, 1 VIEW, NON DEPT INDICATION: Intubated, LVAD and PAC in place COMPARISON: Prior day's exam FINDINGS: Portable frontal view of the chest. IMPRESSION: Support Lines: Left oriented drains via midline approach appeared to have been removed. Remaining support hardware is st able.Lungs and pleura: Increasing conspicuity of airspace disease in the right b ase may represent worsening subsegmental atelectasis, edema or developing atypic al infection. The left retrocardiac opacity and probable partial fusion is uncha nged in volume. No pneumothorax.Heart and mediastinum: Stable contours. Stable s urgical changes.Additional findings: None. Signed: JR Humphreys Robert MDRe port Verified Date/Time: 08/12/2017 03:07:17 Reading Location: [address] Reading Room Electronically signed by: MARTHA HUMPHREYS on 08/03 03:07 AM VANCOMYCIN LEVEL, [id number] 20:33:00* Test Item Value Reference Range Comments VANCOMYCIN RANDOM (BEAKER) (test goda=939) 20.9 ug/mL Reference Range: No NormalsBASIC METABOLIC [id number] 19:36:00* Test Item Value Reference Range Comments SODIUM (BEAKER) (test ocyc=361) 130 meq/L 136-145 POTASSIUM (BEAKER) (test czqq=946) 3.0 meq/L 3.5-5.1 CHLORIDE (BEAKER) (test mfcw=870) 100 meq/L 98-107 CO2 (BEAKER) (test rdld=489) 19 meq/L 22-29 BLOOD UREA NITROGEN (BEAKER) (test reue=834) 37 mg/dL 7-21 CREATININE (BEAKER) (test fcak=565) 1.87 mg/dL 0.57-1.25 GLUCOSE RANDOM (BEAKER) (test wakt=241) 125 mg/dL 70-105 CALCIUM (BEAKER) (test nakq=649) 8.9 mg/dL 8.4-10.2 EGFR (BEAKER) (test udjh=8467) 35 mL/min/1.73 sq m ESTIMATED GFR IS NOT ACCURATE CREATININE CLEARANCE IN PREDICTING GLOMERULAR FILTRATION RATE. ESTIMATED GFR IS NOT APPLICABLE FOR DIALYSIS PATIENTS. [id number] 19:35:00* Test Item Value Reference Range Comments MAGNESIUM (BEAKER) (test pnnd=810) 2.0 mg/dL 1.6-2.6 TISSUE [id number] 16:16:00Surgical Pathology Report Case: [id number] Authorizing Provider: Philipp Rome MD Collected: 08/09/2017 1030 Ordering Location: [facility] Received: 08/09/2017 1432 PERIOPERATIVE SERVICES Pathologist: Aris Sanchez MD Specimens: A) - Ventricle, Left, LEFT VENTRICLE TISSUE B) - Aorta, AORTIC ARTERY TISSUE A. 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 AORTA, PUNCH EXCISION:MILD CYSTIC MUCOID MEDIAL DEGENERATION Signing Pathologist Direct Phone Line: [phone] signed by Aris Sanchez MD on 08/11/2017 at 4:16 [id number]; [id number]; [id number] failureA. Left ventricle tissue. B. Aortic artery tissue Specimen is received in two containers of formalin both labeled with the patient's information.Specimen A: Labeled "left ventricle tissue" consists of multiple fragments of red-brown heart muscle measuring 2.5 x 2 x 1 cm in aggregate having a alaniz-yellow, dusky, red discoloration. The specimen is serially sectioned and submitted entirely in A1 through A4.Specimen B: Labeled "aortic artery tissue" consists of two fragments of kruger-yellow soft tissue measuring 0.4 and 0.5 cm, submitted entirely in B1 for decal. CG/ew Performed on A and [id number] 15:17:00* Test Item Value Reference Range Comments PARTIAL THROMBOPLASTIN TIME (BEAKER) (test ipfb=397) 54.5 seconds 22.5-36.0 OXYGEN SATURATION, [id number] 10:33:00* Test Item Value Reference Range Comments O2 SATURATION (MEASURED) (BEAKER) (test klla=8272) 51.6 % RAD, CHEST, 1 VIEW, NON [id number] 04:37:00Reason for exam:->Intubated, LVAD and PAC in placeShould this be performed at the bedside?->YesFINAL REPORT RAD, CHEST, 1 VIEW, NON DEPT INDICATION: Intubated, LVAD and PAC in place COMPARISON: Prior day's exam FINDINGS: Portable frontal view of the chest. IMPRESSION: Support Lines: Interval extubation. Remaining support hardware is stable. Lungs and pleura: Left retrocardiac opacity has not improved. There is small right effusion. No visible pneumothorax.Heart and mediastinum: Stable contours. Stable surgical changes.Additional findings: None. Signed: JR Humphreys Robert MDReport Verified Date/Time: 08/11/2017 04:3 7:25 Reading Location: [address] Reading Room Electronically si gned by: MARTHA HUMPHREYS on 08/11/2017 04:37 AM [id number] 04:13:00* Test Item Value Reference Range Comments PHOSPHORUS (BEAKER) (test jifw=167) 4.7 mg/dL 2.3-4.7 [id number] 04:13:00* Test Item Value Reference Range Comments MAGNESIUM (BEAKER) (test nvrs=643) 2.3 mg/dL 1.6-2.6 BASIC METABOLIC [id number] 04:13:00* Test Item Value Reference Range Comments SODIUM (BEAKER) (test gckh=284) 141 meq/L 136-145 POTASSIUM (BEAKER) (test vwcq=613) 3.2 meq/L 3.5-5.1 CHLORIDE (BEAKER) (test xvok=397) 109 meq/L 98-107 CO2 (BEAKER) (test hqer=311) 19 meq/L 22-29 BLOOD UREA NITROGEN (BEAKER) (test vzyb=075) 41 mg/dL 7-21 CREATININE (BEAKER) (test rrrt=191) 1.84 mg/dL 0.57-1.25 GLUCOSE RANDOM (BEAKER) (test ymww=700) 141 mg/dL 70-105 CALCIUM (BEAKER) (test xzlt=327) 9.2 mg/dL 8.4-10.2 EGFR (BEAKER) (test kyvy=4711) 36 mL/min/1.73 sq m ESTIMATED GFR IS NOT ACCURATE CREATININE CLEARANCE IN PREDICTING GLOMERULAR FILTRATION RATE. ESTIMATED GFR IS NOT APPLICABLE FOR DIALYSIS PATIENTS. HEPATIC FUNCTION [id number] 04:13:00* Test Item Value Reference Range Comments TOTAL PROTEIN (BEAKER) (test qwho=187) 5.7 gm/dL 6.0-8.3 ALBUMIN (BEAKER) (test bswk=9453) 3.5 g/dL 3.5-5.0 BILIRUBIN TOTAL (BEAKER) (test wvgx=610) 2.2 mg/dL 0.2-1.2 BILIRUBIN DIRECT (BEAKER) (test qogs=142) 1.6 mg/dL 0.1-0.5 ALKALINE PHOSPHATASE (BEAKER) (test jyjz=253) 76 U/L 40-150 AST (SGOT) (BEAKER) (test plet=046) 82 U/L 5-34 ALT (SGPT) (BEAKER) (test jxab=610) 19 U/L 6-55 LACTATE DEHYDROGENASE (LDH)2017-08-11 04:13:00* Test Item Value Reference Range Comments LACTATE DEHYDROGENASE (BEAKER) (test fixi=305) 433 U/L 125-220 CBC W/PLT COUNT & AUTO [id number] 04:07:00* Test Item Value Reference Range Comments WHITE BLOOD CELL COUNT (BEAKER) (test ywtx=066) 13.5 K/ L 3.5-10.5 RED BLOOD CELL COUNT (BEAKER) (test vvcc=282) 3.11 M/ L 4.63-6.08 HEMOGLOBIN (BEAKER) (test uvzw=909) 8.4 GM/DL 13.7-17.5 HEMATOCRIT (BEAKER) (test aouq=479) 26.1 % 40.1-51.0 MEAN CORPUSCULAR VOLUME (BEAKER) (test oqyt=026) 83.9 fL 79.0-92.2 MEAN CORPUSCULAR HEMOGLOBIN (BEAKER) (test ojjv=594) 27.0 pg 25.7-32.2 MEAN CORPUSCULAR HEMOGLOBIN CONC (BEAKER) (test prjc=093) 32.2 GM/DL 32.3-36.5 RED CELL DISTRIBUTION WIDTH (BEAKER) (test fdzp=960) 21.2 % 11.6-14.4 PLATELET COUNT (BEAKER) (test xroe=560) 147 K/CU MM 150-450 MEAN PLATELET VOLUME (BEAKER) (test wjsg=523) 12.6 fL 9.4-12.4 NUCLEATED RED BLOOD CELLS (BEAKER) (test cxoi=247) 0 /100 WBC 0-0 NEUTROPHILS RELATIVE PERCENT (BEAKER) (test pndm=083) 80 % LYMPHOCYTES RELATIVE PERCENT (BEAKER) (test wgnu=231) 10 % MONOCYTES RELATIVE PERCENT (BEAKER) (test dcli=850) 8 % EOSINOPHILS RELATIVE PERCENT (BEAKER) (test egsd=765) 2 % BASOPHILS RELATIVE PERCENT (BEAKER) (test qpqp=147) 1 % NEUTROPHILS ABSOLUTE COUNT (BEAKER) (test ivgg=768) 10.76 K/ L 1.78-5.38 LYMPHOCYTES ABSOLUTE COUNT (BEAKER) (test hzkp=339) 1.31 K/ L 1.32-3.57 MONOCYTES ABSOLUTE COUNT (BEAKER) (test fjld=903) 1.04 K/ L 0.30-0.82 EOSINOPHILS ABSOLUTE COUNT (BEAKER) (test dpxa=117) 0.21 K/ L 0.04-0.54 BASOPHILS ABSOLUTE COUNT (BEAKER) (test plzs=231) 0.07 K/ L 0.01-0.08 IMMATURE GRANULOCYTES-RELATIVE PERCENT (BEAKER) (test gibj=0826) 1 % 0-1 CALCIUM, [id number] 04:04:00* Test Item Value Reference Range Comments CALCIUM IONIZED (BEAKER) (test tino=439) 1.09 mmol/L 1.12-1.27 PH, BLOOD (BEAKER) (test izxz=0256) 7.43 [id number] 04:01:00* Test Item Value Reference Range Comments PROTIME (BEAKER) (test tbgs=351) 16.7 seconds 11.7-14.7 INR (BEAKER) (test vrzg=929) 1.4 <=5.9 PARTIAL THROMBOPLASTIN TIME (BEAKER) (test iaca=806) 57.9 seconds 22.5-36.0 RECOMMENDED COUMADIN/WARFARIN INR THERAPY RANGESSTANDARD DOSE: 2.0 - 3.0 Inclu navid: PROPHYLAXIS for venous thrombosis, systemic embolization; TREATMENT for dayna ous thrombosis and/or pulmonary embolus.HIGH RISK: Target INR is 2.5-3.5 for pat ients with mechanical heart valves.LACTIC ACID, ARTERIAL, WHOLE [id number] 04:01:00* Test Item Value Reference Range Comments LACTATE BLOOD ARTERIAL (2) (BEAKER) (test bovk=7087) 1.6 mmol/L 0.5-2.2 Effective 11/04/2015: Units/Reference Range ChangeNew: 0.5-2.2 mmol/L Previous: 5 -20 mg/dLBLOOD GAS, [id number] 03:56:00* Test Item Value Reference Range Comments PH ARTERIAL (BEAKER) (test mnlg=754) 7.44 7.35-7.45 PCO2 ARTERIAL (BEAKER) (test gyil=410) 32 mmHg 35-45 PO2 ARTERIAL (BEAKER) (test hujr=708) 234 mmHg 80-90 O2 SATURATION ARTERIAL (BEAKER) (test iqbs=771) 99.6 % 96.0-97.0 HCO3 ARTERIAL (BEAKER) (test qhuz=901) 21 mmol/L 21-29 BASE EXCESS ARTERIAL (BEAKER) (test oewm=324) -2.7 mmol/L -2.0-3.0 PATIENT TEMPERATURE (BEAKER) (test sygn=1293) 36.3 C FIO2 (BEAKER) (test ehoq=3150) 36.0 % OXYGEN SATURATION, [id number] 03:52:00* Test Item Value Reference Range Comments O2 SATURATION (MEASURED) (BEAKER) (test zbxv=9015) 62.7 % [id number] 20:27:00* Test Item Value Reference Range Comments PROTIME (BEAKER) (test kirf=930) 16.0 seconds 11.7-14.7 INR (BEAKER) (test rvmq=728) 1.3 <=5.9 PARTIAL THROMBOPLASTIN TIME (BEAKER) (test idui=811) 42.4 seconds 22.5-36.0 RECOMMENDED COUMADIN/WARFARIN INR THERAPY RANGESSTANDARD DOSE: 2.0 - 3.0 Inclu navid: PROPHYLAXIS for venous thrombosis, systemic embolization; TREATMENT for dayna ous thrombosis and/or pulmonary embolus.HIGH RISK: Target INR is 2.5-3.5 for pat ients with mechanical heart valves.GLUCOSE-STAT [id number] 20:01:00* Test Item Value Reference Range Comments GLUCOSE RANDOM (BEAKER) (test ndbz=152) 159 mg/dL 70-110 BASIC METABOLIC [id number] 19:10:00* Test Item Value Reference Range Comments SODIUM (BEAKER) (test dcky=201) 139 meq/L 136-145 POTASSIUM (BEAKER) (test mwas=160) 3.5 meq/L 3.5-5.1 CHLORIDE (BEAKER) (test zgyo=598) 106 meq/L 98-107 CO2 (BEAKER) (test xdbb=525) 18 meq/L 22-29 BLOOD UREA NITROGEN (BEAKER) (test hoba=517) 40 mg/dL 7-21 CREATININE (BEAKER) (test mypy=339) 1.77 mg/dL 0.57-1.25 GLUCOSE RANDOM (BEAKER) (test sytd=899) 164 mg/dL 70-105 CALCIUM (BEAKER) (test zgbz=265) 9.2 mg/dL 8.4-10.2 EGFR (BEAKER) (test vqyf=6643) 37 mL/min/1.73 sq m ESTIMATED GFR IS NOT ACCURATE CREATININE CLEARANCE IN PREDICTING GLOMERULAR FILTRATION RATE. ESTIMATED GFR IS NOT APPLICABLE FOR DIALYSIS PATIENTS. CBC W/PLT COUNT & AUTO [id number] 19:07:00* Test Item Value Reference Range Comments WHITE BLOOD CELL COUNT (BEAKER) (test ntyh=327) 12.9 K/ L 3.5-10.5 RED BLOOD CELL COUNT (BEAKER) (test kjea=315) 3.14 M/ L 4.63-6.08 HEMOGLOBIN (BEAKER) (test ltta=639) 8.6 GM/DL 13.7-17.5 HEMATOCRIT (BEAKER) (test qajt=825) 27.0 % 40.1-51.0 MEAN CORPUSCULAR VOLUME (BEAKER) (test vnca=058) 86.0 fL 79.0-92.2 MEAN CORPUSCULAR HEMOGLOBIN (BEAKER) (test gwko=868) 27.4 pg 25.7-32.2 MEAN CORPUSCULAR HEMOGLOBIN CONC (BEAKER) (test jhmh=229) 31.9 GM/DL 32.3-36.5 RED CELL DISTRIBUTION WIDTH (BEAKER) (test stmf=453) 21.3 % 11.6-14.4 PLATELET COUNT (BEAKER) (test mhut=622) 149 K/CU MM 150-450 MEAN PLATELET VOLUME (BEAKER) (test awzi=465) 12.6 fL 9.4-12.4 NUCLEATED RED BLOOD CELLS (BEAKER) (test wode=208) 0 /100 WBC 0-0 NEUTROPHILS RELATIVE PERCENT (BEAKER) (test pfqv=859) 79 % LYMPHOCYTES RELATIVE PERCENT (BEAKER) (test tgnx=845) 9 % MONOCYTES RELATIVE PERCENT (BEAKER) (test qauy=436) 9 % EOSINOPHILS RELATIVE PERCENT (BEAKER) (test fzky=518) 2 % BASOPHILS RELATIVE PERCENT (BEAKER) (test bejl=598) 1 % NEUTROPHILS ABSOLUTE COUNT (BEAKER) (test kynq=497) 10.14 K/ L 1.78-5.38 LYMPHOCYTES ABSOLUTE COUNT (BEAKER) (test pxsa=878) 1.21 K/ L 1.32-3.57 MONOCYTES ABSOLUTE COUNT (BEAKER) (test eskr=968) 1.17 K/ L 0.30-0.82 EOSINOPHILS ABSOLUTE COUNT (BEAKER) (test rflf=192) 0.19 K/ L 0.04-0.54 BASOPHILS ABSOLUTE COUNT (BEAKER) (test rdzl=926) 0.09 K/ L 0.01-0.08 IMMATURE GRANULOCYTES-RELATIVE PERCENT (BEAKER) (test ffxw=7206) 1 % 0-1 LACTIC ACID, ARTERIAL, WHOLE [id number] 19:06:00* Test Item Value Reference Range Comments LACTATE BLOOD ARTERIAL (2) (BEAKER) (test bxmc=5669) 2.3 mmol/L 0.5-2.2 Effective 11/04/2015: Units/Reference Range ChangeNew: 0.5-2.2 mmol/L Previous: 5 -20 mg/dLBLOOD GAS, [id number] 18:57:00* Test Item Value Reference Range Comments PH ARTERIAL (BEAKER) (test omie=694) 7.38 7.35-7.45 PCO2 ARTERIAL (BEAKER) (test lciq=236) 34 mmHg 35-45 PO2 ARTERIAL (BEAKER) (test fwqe=613) 153 mmHg 80-90 O2 SATURATION ARTERIAL (BEAKER) (test tilu=260) 99.0 % 96.0-97.0 HCO3 ARTERIAL (BEAKER) (test zjec=835) 20 mmol/L 21-29 BASE EXCESS ARTERIAL (BEAKER) (test xvea=397) -4.5 mmol/L -2.0-3.0 PATIENT TEMPERATURE (BEAKER) (test xerx=6235) 36.9 C FIO2 (BEAKER) (test goay=4458) 40.0 % LACTIC ACID, ARTERIAL, WHOLE [id number] 13:34:00* Test Item Value Reference Range Comments LACTATE BLOOD ARTERIAL (2) (BEAKER) (test odvr=6080) 2.6 mmol/L 0.5-2.2 Effective 11/04/2015: Units/Reference Range ChangeNew: 0.5-2.2 mmol/L Previous: 5 -20 mg/dLCBC W/PLT COUNT & AUTO [id number] 13:34:00* Test Item Value Reference Range Comments WHITE BLOOD CELL COUNT (BEAKER) (test vsky=180) 11.7 K/ L 3.5-10.5 RED BLOOD CELL COUNT (BEAKER) (test feje=806) 2.76 M/ L 4.63-6.08 HEMOGLOBIN (BEAKER) (test rvlu=368) 7.5 GM/DL 13.7-17.5 HEMATOCRIT (BEAKER) (test kdpr=088) 23.4 % 40.1-51.0 MEAN CORPUSCULAR VOLUME (BEAKER) (test gfjy=888) 84.8 fL 79.0-92.2 MEAN CORPUSCULAR HEMOGLOBIN (BEAKER) (test yqrp=237) 27.2 pg 25.7-32.2 MEAN CORPUSCULAR HEMOGLOBIN CONC (BEAKER) (test boyx=006) 32.1 GM/DL 32.3-36.5 RED CELL DISTRIBUTION WIDTH (BEAKER) (test vifb=322) 22.3 % 11.6-14.4 PLATELET COUNT (BEAKER) (test aotf=965) 139 K/CU MM 150-450 MEAN PLATELET VOLUME (BEAKER) (test npmm=391) 12.4 fL 9.4-12.4 NUCLEATED RED BLOOD CELLS (BEAKER) (test pzwj=664) 0 /100 WBC 0-0 NEUTROPHILS RELATIVE PERCENT (BEAKER) (test ohag=207) 77 % LYMPHOCYTES RELATIVE PERCENT (BEAKER) (test mjef=553) 11 % MONOCYTES RELATIVE PERCENT (BEAKER) (test zwxe=377) 9 % EOSINOPHILS RELATIVE PERCENT (BEAKER) (test iout=788) 2 % BASOPHILS RELATIVE PERCENT (BEAKER) (test hdto=113) 1 % NEUTROPHILS ABSOLUTE COUNT (BEAKER) (test chea=053) 8.93 K/ L 1.78-5.38 LYMPHOCYTES ABSOLUTE COUNT (BEAKER) (test qvso=786) 1.27 K/ L 1.32-3.57 MONOCYTES ABSOLUTE COUNT (BEAKER) (test vjno=324) 1.10 K/ L 0.30-0.82 EOSINOPHILS ABSOLUTE COUNT (BEAKER) (test biap=476) 0.17 K/ L 0.04-0.54 BASOPHILS ABSOLUTE COUNT (BEAKER) (test wokm=147) 0.11 K/ L 0.01-0.08 IMMATURE GRANULOCYTES-RELATIVE PERCENT (BEAKER) (test rdwl=9039) 1 % 0-1 BLOOD GAS, [id number] 13:10:00* Test Item Value Reference Range Comments PH ARTERIAL (BEAKER) (test sehv=320) 7.44 7.35-7.45 PCO2 ARTERIAL (BEAKER) (test fhld=753) 29 mmHg 35-45 PO2 ARTERIAL (BEAKER) (test apqn=031) 154 mmHg 80-90 O2 SATURATION ARTERIAL (BEAKER) (test boss=084) 99.1 % 96.0-97.0 HCO3 ARTERIAL (BEAKER) (test msue=156) 19 mmol/L 21-29 BASE EXCESS ARTERIAL (BEAKER) (test ksie=035) -4.1 mmol/L -2.0-3.0 PATIENT TEMPERATURE (BEAKER) (test hell=7539) 37.2 C FIO2 (BEAKER) (test zlum=6942) 40.0 % BLOOD GAS, [id number] 11:16:00* Test Item Value Reference Range Comments PH ARTERIAL (BEAKER) (test lnhq=032) 7.34 7.35-7.45 PCO2 ARTERIAL (BEAKER) (test mkga=400) 37 mmHg 35-45 PO2 ARTERIAL (BEAKER) (test neax=728) 160 mmHg 80-90 O2 SATURATION ARTERIAL (BEAKER) (test mkzg=253) 99.0 % 96.0-97.0 HCO3 ARTERIAL (BEAKER) (test wlyu=136) 19 mmol/L 21-29 BASE EXCESS ARTERIAL (BEAKER) (test drjj=819) -5.7 mmol/L -2.0-3.0 PATIENT TEMPERATURE (BEAKER) (test prmg=4978) 37.4 C FIO2 (BEAKER) (test liqe=1734) 40.0 % 15 minutes after albumin and bicarb givenGLUCOSE-STAT [id number] 11:16:00* Test Item Value Reference Range Comments GLUCOSE RANDOM (BEAKER) (test ohlu=145) 147 mg/dL 70-110 15 minutes after albumin and bicarb givenBASIC METABOLIC [id number] 09:18:00* Test Item Value Reference Range Comments SODIUM (BEAKER) (test gigk=987) 139 meq/L 136-145 POTASSIUM (BEAKER) (test roey=095) 4.1 meq/L 3.5-5.1 CHLORIDE (BEAKER) (test wglq=904) 108 meq/L 98-107 CO2 (BEAKER) (test vpnq=536) 17 meq/L 22-29 BLOOD UREA NITROGEN (BEAKER) (test qqtp=530) 42 mg/dL 7-21 CREATININE (BEAKER) (test tbrz=871) 1.58 mg/dL 0.57-1.25 GLUCOSE RANDOM (BEAKER) (test ygdu=405) 164 mg/dL 70-105 CALCIUM (BEAKER) (test xafi=058) 9.1 mg/dL 8.4-10.2 EGFR (BEAKER) (test gaet=0650) 42 mL/min/1.73 sq m ESTIMATED GFR IS NOT ACCURATE CREATININE CLEARANCE IN PREDICTING GLOMERULAR FILTRATION RATE. ESTIMATED GFR IS NOT APPLICABLE FOR DIALYSIS PATIENTS. LACTIC ACID, ARTERIAL, WHOLE [id number] 09:16:00* Test Item Value Reference Range Comments LACTATE BLOOD ARTERIAL (2) (BEAKER) (test gwcn=8401) 3.1 mmol/L 0.5-2.2 Effective 11/04/2015: Units/Reference Range ChangeNew: 0.5-2.2 mmol/L Previous: 5 -20 mg/dLBLOOD GAS, [id number] 09:02:00* Test Item Value Reference Range Comments PH ARTERIAL (BEAKER) (test criy=013) 7.32 7.35-7.45 PCO2 ARTERIAL (BEAKER) (test dzrx=122) 35 mmHg 35-45 PO2 ARTERIAL (BEAKER) (test yyqq=540) 151 mmHg 80-90 O2 SATURATION ARTERIAL (BEAKER) (test tlwj=528) 98.8 % 96.0-97.0 HCO3 ARTERIAL (BEAKER) (test hdgu=612) 18 mmol/L 21-29 BASE EXCESS ARTERIAL (BEAKER) (test rqpm=005) -7.5 mmol/L -2.0-3.0 PATIENT TEMPERATURE (BEAKER) (test ricx=1308) 37.6 C FIO2 (BEAKER) (test ztoe=5806) 40.0 % CALCIUM, [id number] 09:02:00* Test Item Value Reference Range Comments CALCIUM IONIZED (BEAKER) (test yivl=129) 1.19 mmol/L 1.12-1.27 PH, BLOOD (BEAKER) (test mayu=7330) 7.33 Check serum Ionized Calcium level after 4 hours after IV Calcium replacement.CBC W/PLT COUNT & AUTO [id number] 07:56:00* Test Item Value Reference Range Comments WHITE BLOOD CELL COUNT (BEAKER) (test eyif=894) 12.5 K/ L 3.5-10.5 RED BLOOD CELL COUNT (BEAKER) (test jthm=038) 3.08 M/ L 4.63-6.08 HEMOGLOBIN (BEAKER) (test uuqh=438) 8.3 GM/DL 13.7-17.5 HEMATOCRIT (BEAKER) (test fesz=193) 26.4 % 40.1-51.0 MEAN CORPUSCULAR VOLUME (BEAKER) (test vocr=567) 85.7 fL 79.0-92.2 MEAN CORPUSCULAR HEMOGLOBIN (BEAKER) (test givh=623) 26.9 pg 25.7-32.2 MEAN CORPUSCULAR HEMOGLOBIN CONC (BEAKER) (test mhkg=677) 31.4 GM/DL 32.3-36.5 RED CELL DISTRIBUTION WIDTH (BEAKER) (test aknm=430) 22.4 % 11.6-14.4 PLATELET COUNT (BEAKER) (test knhf=224) 151 K/CU MM 150-450 MEAN PLATELET VOLUME (BEAKER) (test ienk=277) 12.5 fL 9.4-12.4 NUCLEATED RED BLOOD CELLS (BEAKER) (test yryp=058) 0 /100 WBC 0-0 NEUTROPHILS RELATIVE PERCENT (BEAKER) (test smll=336) 76 % LYMPHOCYTES RELATIVE PERCENT (BEAKER) (test amwb=305) 12 % MONOCYTES RELATIVE PERCENT (BEAKER) (test yfhm=021) 8 % EOSINOPHILS RELATIVE PERCENT (BEAKER) (test mrsq=989) 2 % BASOPHILS RELATIVE PERCENT (BEAKER) (test javz=224) 1 % NEUTROPHILS ABSOLUTE COUNT (BEAKER) (test bvel=135) 9.45 K/ L 1.78-5.38 LYMPHOCYTES ABSOLUTE COUNT (BEAKER) (test ggxu=256) 1.47 K/ L 1.32-3.57 MONOCYTES ABSOLUTE COUNT (BEAKER) (test gxvu=360) 1.02 K/ L 0.30-0.82 EOSINOPHILS ABSOLUTE COUNT (BEAKER) (test orsw=542) 0.29 K/ L 0.04-0.54 BASOPHILS ABSOLUTE COUNT (BEAKER) (test hptm=633) 0.15 K/ L 0.01-0.08 IMMATURE GRANULOCYTES-RELATIVE PERCENT (BEAKER) (test pldx=6600) 1 % 0-1 RAD, CHEST, 1 VIEW, NON [id number] 07:35:00Reason for exam:->Intubated, LVAD and PAC in placeShould this be performed at the bedside?->YesFINAL REPORT Chest one view AP 08/10/2017 7:34 AM CLINICAL INDICATION: Intubated, LVAD and PAC in place COMPARISON: 08/09/2017 IMPRESSION: Support hardware is unchanged in position. Cardiomediastinal contours are stable. The central pulmonary vasculature is not engorged. There is a small volume left pleural effusion. Retrocardiac left lower lobe opacity may reflect atelectasis o r pneumonia. The right lung is well aerated. Signed: Leonora Kincaidort Ve rified Date/Time: 08/10/2017 07:35:12 Reading Location: [facility] Radiology Reading Room IC ACID, ARTERIAL, WHOLE [id number] 06:48:00* Test Item Value Reference Range Comments LACTATE BLOOD ARTERIAL (2) (BEAKER) (test hife=4055) 2.5 mmol/L 0.5-2.2 Effective 11/04/2015: Units/Reference Range ChangeNew: 0.5-2.2 mmol/L Previous: 5 -20 mg/dLBLOOD GAS, [id number] 06:19:00* Test Item Value Reference Range Comments PH ARTERIAL (BEAKER) (test tmdq=599) 7.36 7.35-7.45 PCO2 ARTERIAL (BEAKER) (test qjup=437) 34 mmHg 35-45 PO2 ARTERIAL (BEAKER) (test vwgq=363) 144 mmHg 80-90 O2 SATURATION ARTERIAL (BEAKER) (test qaxx=445) 98.8 % 96.0-97.0 HCO3 ARTERIAL (BEAKER) (test qeyj=870) 19 mmol/L 21-29 BASE EXCESS ARTERIAL (BEAKER) (test jami=587) -6.2 mmol/L -2.0-3.0 PATIENT TEMPERATURE (BEAKER) (test yffc=5627) 36.7 C FIO2 (BEAKER) (test ennu=7114) 40.0 % OXYGEN SATURATION, [id number] 06:16:00* Test Item Value Reference Range Comments O2 SATURATION (MEASURED) (BEAKER) (test hffe=9364) 61.0 % CALCIUM, [id number] 04:00:00* Test Item Value Reference Range Comments CALCIUM IONIZED (BEAKER) (test rmqf=561) 1.16 mmol/L 1.12-1.27 PH, BLOOD (BEAKER) (test eylz=0009) 7.30 HEPATIC FUNCTION [id number] 03:53:00* Test Item Value Reference Range Comments TOTAL PROTEIN (BEAKER) (test hbzr=789) 5.3 gm/dL 6.0-8.3 ALBUMIN (BEAKER) (test jldd=9863) 3.3 g/dL 3.5-5.0 BILIRUBIN TOTAL (BEAKER) (test hwbl=006) 2.8 mg/dL 0.2-1.2 BILIRUBIN DIRECT (BEAKER) (test suje=135) 2.0 mg/dL 0.1-0.5 ALKALINE PHOSPHATASE (BEAKER) (test kyzd=915) 79 U/L 40-150 AST (SGOT) (BEAKER) (test jzgg=023) 92 U/L 5-34 ALT (SGPT) (BEAKER) (test lags=879) 20 U/L 6-55 BLOOD GAS, [id number] 03:52:00* Test Item Value Reference Range Comments PH ARTERIAL (BEAKER) (test viwg=236) 7.31 7.35-7.45 PCO2 ARTERIAL (BEAKER) (test nadd=985) 34 mmHg 35-45 PO2 ARTERIAL (BEAKER) (test ptsp=900) 156 mmHg 80-90 O2 SATURATION ARTERIAL (BEAKER) (test tocq=572) 98.9 % 96.0-97.0 HCO3 ARTERIAL (BEAKER) (test hdeq=261) 17 mmol/L 21-29 BASE EXCESS ARTERIAL (BEAKER) (test jutw=695) -9.0 mmol/L -2.0-3.0 PATIENT TEMPERATURE (BEAKER) (test xeeh=4578) 36.7 C FIO2 (BEAKER) (test vsky=0421) 40.0 % [id number] 03:47:00* Test Item Value Reference Range Comments PHOSPHORUS (BEAKER) (test jgmy=438) 4.7 mg/dL 2.3-4.7 [id number] 03:47:00* Test Item Value Reference Range Comments MAGNESIUM (BEAKER) (test grcm=455) 2.5 mg/dL 1.6-2.6 BASIC METABOLIC [id number] 03:47:00* Test Item Value Reference Range Comments SODIUM (BEAKER) (test ajlc=348) 137 meq/L 136-145 POTASSIUM (BEAKER) (test aqxz=386) 4.7 meq/L 3.5-5.1 CHLORIDE (BEAKER) (test sjdn=384) 110 meq/L 98-107 CO2 (BEAKER) (test shag=926) 15 meq/L 22-29 BLOOD UREA NITROGEN (BEAKER) (test sjxy=756) 39 mg/dL 7-21 CREATININE (BEAKER) (test egnk=916) 1.37 mg/dL 0.57-1.25 GLUCOSE RANDOM (BEAKER) (test uzve=416) 169 mg/dL 70-105 CALCIUM (BEAKER) (test wuwl=445) 8.9 mg/dL 8.4-10.2 EGFR (BEAKER) (test zhno=2129) 50 mL/min/1.73 sq m ESTIMATED GFR IS NOT ACCURATE CREATININE CLEARANCE IN PREDICTING GLOMERULAR FILTRATION RATE. ESTIMATED GFR IS NOT APPLICABLE FOR DIALYSIS PATIENTS. LACTATE DEHYDROGENASE (LDH)2017-08-10 03:47:00* Test Item Value Reference Range Comments LACTATE DEHYDROGENASE (BEAKER) (test znyo=888) 416 U/L 125-220 OXYGEN SATURATION, [id number] 03:45:00* Test Item Value Reference Range Comments O2 SATURATION (MEASURED) (BEAKER) (test czgd=9603) 57.4 % LACTIC ACID, ARTERIAL, WHOLE [id number] 03:39:00* Test Item Value Reference Range Comments LACTATE BLOOD ARTERIAL (2) (BEAKER) (test uhfa=7227) 2.2 mmol/L 0.5-2.2 Effective 11/04/2015: Units/Reference Range ChangeNew: 0.5-2.2 mmol/L Previous: 5 -20 mg/dLSpecimen slightly ictericPT/[id number] 03:38:00* Test Item Value Reference Range Comments PROTIME (BEAKER) (test bcyc=365) 17.2 seconds 11.7-14.7 INR (BEAKER) (test sayb=414) 1.4 <=5.9 PARTIAL THROMBOPLASTIN TIME (BEAKER) (test pjli=336) 43.1 seconds 22.5-36.0 RECOMMENDED COUMADIN/WARFARIN INR THERAPY RANGESSTANDARD DOSE: 2.0 - 3.0 Inclu navid: PROPHYLAXIS for venous thrombosis, systemic embolization; TREATMENT for dayna ous thrombosis and/or pulmonary embolus.HIGH RISK: Target INR is 2.5-3.5 for pat ients with mechanical heart valves.CBC W/PLT COUNT & AUTO [id number] 03:33:00* Test Item Value Reference Range Comments WHITE BLOOD CELL COUNT (BEAKER) (test fpmk=772) 12.6 K/ L 3.5-10.5 RED BLOOD CELL COUNT (BEAKER) (test qmmy=086) 3.15 M/ L 4.63-6.08 HEMOGLOBIN (BEAKER) (test oazg=736) 8.5 GM/DL 13.7-17.5 HEMATOCRIT (BEAKER) (test qkxr=173) 27.1 % 40.1-51.0 MEAN CORPUSCULAR VOLUME (BEAKER) (test hdzm=001) 86.0 fL 79.0-92.2 MEAN CORPUSCULAR HEMOGLOBIN (BEAKER) (test xbyk=594) 27.0 pg 25.7-32.2 MEAN CORPUSCULAR HEMOGLOBIN CONC (BEAKER) (test otrf=552) 31.4 GM/DL 32.3-36.5 RED CELL DISTRIBUTION WIDTH (BEAKER) (test lmks=788) 22.4 % 11.6-14.4 PLATELET COUNT (BEAKER) (test wdku=955) 161 K/CU MM 150-450 MEAN PLATELET VOLUME (BEAKER) (test sbyg=063) 12.3 fL 9.4-12.4 NUCLEATED RED BLOOD CELLS (BEAKER) (test hcgd=494) 0 /100 WBC 0-0 NEUTROPHILS RELATIVE PERCENT (BEAKER) (test gugq=507) 78 % LYMPHOCYTES RELATIVE PERCENT (BEAKER) (test vgdj=091) 13 % MONOCYTES RELATIVE PERCENT (BEAKER) (test sipu=946) 6 % EOSINOPHILS RELATIVE PERCENT (BEAKER) (test vcib=490) 2 % BASOPHILS RELATIVE PERCENT (BEAKER) (test tbkg=169) 1 % NEUTROPHILS ABSOLUTE COUNT (BEAKER) (test rlbt=460) 9.78 K/ L 1.78-5.38 LYMPHOCYTES ABSOLUTE COUNT (BEAKER) (test fedy=432) 1.65 K/ L 1.32-3.57 MONOCYTES ABSOLUTE COUNT (BEAKER) (test dshm=211) 0.73 K/ L 0.30-0.82 EOSINOPHILS ABSOLUTE COUNT (BEAKER) (test ovem=922) 0.24 K/ L 0.04-0.54 BASOPHILS ABSOLUTE COUNT (BEAKER) (test uscm=517) 0.09 K/ L 0.01-0.08 IMMATURE GRANULOCYTES-RELATIVE PERCENT (BEAKER) (test ctsy=4480) 1 % 0-1 LACTIC ACID, ARTERIAL, WHOLE [id number] 22:42:00* Test Item Value Reference Range Comments LACTATE BLOOD ARTERIAL (2) (BEAKER) (test xyoi=2787) 1.7 mmol/L 0.5-2.2 Effective 11/04/2015: Units/Reference Range ChangeNew: 0.5-2.2 mmol/L Previous: 5 -20 mg/dLSpecimen slightly ictericCBC (HEMOGRAM ONLY)2017-08-09 22:33:00* Test Item Value Reference Range Comments WHITE BLOOD CELL COUNT (BEAKER) (test rubi=010) 13.0 K/ L 3.5-10.5 RED BLOOD CELL COUNT (BEAKER) (test marf=860) 2.70 M/ L 4.63-6.08 HEMOGLOBIN (BEAKER) (test qhhy=359) 7.2 GM/DL 13.7-17.5 HEMATOCRIT (BEAKER) (test yuwe=243) 23.3 % 40.1-51.0 MEAN CORPUSCULAR VOLUME (BEAKER) (test cdoi=035) 86.3 fL 79.0-92.2 MEAN CORPUSCULAR HEMOGLOBIN (BEAKER) (test vkkp=837) 26.7 pg 25.7-32.2 MEAN CORPUSCULAR HEMOGLOBIN CONC (BEAKER) (test bzmb=862) 30.9 GM/DL 32.3-36.5 RED CELL DISTRIBUTION WIDTH (BEAKER) (test ekcd=782) 23.3 % 11.6-14.4 PLATELET COUNT (BEAKER) (test tmqf=073) 128 K/CU MM 150-450 MEAN PLATELET VOLUME (BEAKER) (test cotf=459) 11.8 fL 9.4-12.4 NUCLEATED RED BLOOD CELLS (BEAKER) (test tftt=911) 0 /100 WBC 0-0 OXYGEN SATURATION, [id number] 22:24:00* Test Item Value Reference Range Comments O2 SATURATION (MEASURED) (BEAKER) (test timz=1020) 54.8 % SODIUM NA-STAT [id number] 20:45:00* Test Item Value Reference Range Comments SODIUM (BEAKER) (test geiz=878) 136 meq/L 135-148 POTASSIUM-STAT [id number] 20:45:00* Test Item Value Reference Range Comments POTASSIUM (BEAKER) (test gqnj=025) 3.9 meq/L 3.6-5.5 CALCIUM, [id number] 20:45:00* Test Item Value Reference Range Comments CALCIUM IONIZED (BEAKER) (test udjh=554) 1.05 mmol/L 1.12-1.27 PH, BLOOD (BEAKER) (test qqfa=5899) 7.41 BLOOD GAS, [id number] 20:45:00* Test Item Value Reference Range Comments PH ARTERIAL (BEAKER) (test ndln=791) 7.41 7.35-7.45 PCO2 ARTERIAL (BEAKER) (test brhl=311) 28 mmHg 35-45 PO2 ARTERIAL (BEAKER) (test rvfg=195) 200 mmHg 80-90 O2 SATURATION ARTERIAL (BEAKER) (test sane=551) 99.4 % 96.0-97.0 HCO3 ARTERIAL (BEAKER) (test yiof=303) 18 mmol/L 21-29 BASE EXCESS ARTERIAL (BEAKER) (test dntm=676) -6.1 mmol/L -2.0-3.0 PATIENT TEMPERATURE (BEAKER) (test xphh=7374) 37.5 C FIO2 (BEAKER) (test dkcd=8269) 40.0 % GLUCOSE-STAT [id number] 20:45:00* Test Item Value Reference Range Comments GLUCOSE RANDOM (BEAKER) (test imed=768) 123 mg/dL 70-110 HGB/HCT (H&H) - STAT [id number] 20:45:00* Test Item Value Reference Range Comments HEMOGLOBIN (BEAKER) (test vblq=027) 8.1 g/dL 13.0-16.8 HEMATOCRIT (BEAKER) (test xskg=345) 24.0 % 40.0-50.0 LACTIC ACID, ARTERIAL, WHOLE [id number] 18:03:00* Test Item Value Reference Range Comments LACTATE BLOOD ARTERIAL (2) (BEAKER) (test txbg=9687) 2.3 mmol/L 0.5-2.2 Specimen slightly hemolyzed Effective 11/04/2015: Units/Reference Range ChangeNew: 0.5-2.2 mmol/L Previous: 5 -20 mg/[id number] 18:00:00* Test Item Value Reference Range Comments MAGNESIUM (BEAKER) (test wzyp=075) 2.3 mg/dL 1.6-2.6 POTASSIUM-STAT [id number] 17:29:00* Test Item Value Reference Range Comments POTASSIUM (BEAKER) (test btnq=276) 4.0 meq/L 3.6-5.5 BLOOD GAS, [id number] 17:29:00* Test Item Value Reference Range Comments PH ARTERIAL (BEAKER) (test nvle=503) 7.39 7.35-7.45 PCO2 ARTERIAL (BEAKER) (test rvsv=804) 31 mmHg 35-45 PO2 ARTERIAL (BEAKER) (test mitx=896) 154 mmHg 80-90 O2 SATURATION ARTERIAL (BEAKER) (test ocgg=781) 99.0 % 96.0-97.0 HCO3 ARTERIAL (BEAKER) (test pdlh=902) 18 mmol/L 21-29 BASE EXCESS ARTERIAL (BEAKER) (test lgmd=511) -6.1 mmol/L -2.0-3.0 PATIENT TEMPERATURE (BEAKER) (test nrqc=8741) 36.9 C FIO2 (BEAKER) (test hbuu=9426) 40.0 % SODIUM NA-STAT [id number] 17:29:00* Test Item Value Reference Range Comments SODIUM (BEAKER) (test raqd=079) 133 meq/L 135-148 GLUCOSE-STAT [id number] 17:29:00* Test Item Value Reference Range Comments GLUCOSE RANDOM (BEAKER) (test oirj=622) 138 mg/dL 70-110 HGB/HCT (H&H) - STAT [id number] 17:29:00* Test Item Value Reference Range Comments HEMOGLOBIN (BEAKER) (test rlzt=030) 8.5 g/dL 13.0-16.8 HEMATOCRIT (BEAKER) (test owtu=039) 25.0 % 40.0-50.0 RAD, CHEST, 1 VIEW, NON [id number] 14:28:00Reason for exam:->Post LVAD placementShould this be performed at the bedside?->YesFINAL REPORT EXAM: Frontal chest radiograph, 2 images HISTORY PROVIDED: Post LVAD placement COMPARISON: 08/08/2017 IMPRESSION:The tip of endotracheal tube terminates approximately 6.3 cm above the shalini. A right IJ approach [place]-Primo catheter is in place with the tip projecting over the pulmonary outflow tract. A left subclavian pacing device is in unchanged position. LVAD has been placed. Bilateral thoracostomy tubes are in place as well as a mediastinal drain. The tip of a right upper extremity PICC line projects over the cavoatrial junction. A tiny right apical pneumothorax is identified. No definite discernible pneumothorax on the left. There are left basilar retrocardiac opacities re presenting a combination of a small left pleural effusion and atelectasis. A tra ce right pleural effusion is suspected. The right basilar opacity has resolved. Pulmonary edema pattern is significantly improved with minimal residual central pulmonary vascular congestion. Cardiomediastinal contours are stable. No acute o sseous abnormality. Signed: Rhonda Miller MDReport Verified Date/Time: 12/2017 14:28:17 Reading Location: [facility] Reading Room ATE DEHYDROGENASE (LDH)2017-08-09 14:18:00* Test Item Value Reference Range Comments LACTATE DEHYDROGENASE (BEAKER) (test iuse=659) 507 U/L 125-220 Specimen slightly hemolyzed [id number] 14:17:00* Test Item Value Reference Range Comments MAGNESIUM (BEAKER) (test ktwh=258) 1.8 mg/dL 1.6-2.6 Specimen slightly hemolyzed [id number] 14:17:00* Test Item Value Reference Range Comments PHOSPHORUS (BEAKER) (test qmjz=110) 3.4 mg/dL 2.3-4.7 Specimen slightly hemolyzed BASIC METABOLIC [id number] 14:17:00* Test Item Value Reference Range Comments SODIUM (BEAKER) (test kklr=535) 132 meq/L 136-145 POTASSIUM (BEAKER) (test txbi=484) 3.7 meq/L 3.5-5.1 Specimen slightly hemolyzed CHLORIDE (BEAKER) (test ntjc=479) 102 meq/L 98-107 CO2 (BEAKER) (test lnpo=757) 18 meq/L 22-29 BLOOD UREA NITROGEN (BEAKER) (test udoo=125) 41 mg/dL 7-21 CREATININE (BEAKER) (test ralm=726) 1.05 mg/dL 0.57-1.25 Specimen slightly hemolyzed GLUCOSE RANDOM (BEAKER) (test fkfm=667) 164 mg/dL 70-105 CALCIUM (BEAKER) (test rcbu=396) 8.7 mg/dL 8.4-10.2 EGFR (BEAKER) (test hpta=5114) 68 mL/min/1.73 sq m ESTIMATED GFR IS NOT ACCURATE CREATININE CLEARANCE IN PREDICTING GLOMERULAR FILTRATION RATE. ESTIMATED GFR IS NOT APPLICABLE FOR DIALYSIS PATIENTS. HEPATIC FUNCTION [id number] 14:17:00* Test Item Value Reference Range Comments TOTAL PROTEIN (BEAKER) (test tkum=172) 4.8 gm/dL 6.0-8.3 Specimen slightly hemolyzed ALBUMIN (BEAKER) (test jbfn=0495) 2.3 g/dL 3.5-5.0 Specimen slightly hemolyzed BILIRUBIN TOTAL (BEAKER) (test hvtd=554) 2.4 mg/dL 0.2-1.2 Specimen slightly hemolyzed BILIRUBIN DIRECT (BEAKER) (test wxxc=700) 1.5 mg/dL 0.1-0.5 Specimen slightly hemolyzed ALKALINE PHOSPHATASE (BEAKER) (test ulsp=036) 96 U/L 40-150 AST (SGOT) (BEAKER) (test wkdg=227) 52 U/L 5-34 Specimen slightly hemolyzed ALT (SGPT) (BEAKER) (test cveb=544) 20 U/L 6-55 Specimen slightly hemolyzed CBC W/PLT COUNT & AUTO [id number] 14:14:00* Test Item Value Reference Range Comments WHITE BLOOD CELL COUNT (BEAKER) (test busb=233) 22.5 K/ L 3.5-10.5 RED BLOOD CELL COUNT (BEAKER) (test icpj=996) 3.23 M/ L 4.63-6.08 HEMOGLOBIN (BEAKER) (test pcgz=349) 8.9 GM/DL 13.7-17.5 HEMATOCRIT (BEAKER) (test pjsm=523) 26.9 % 40.1-51.0 MEAN CORPUSCULAR VOLUME (BEAKER) (test mmim=553) 83.3 fL 79.0-92.2 MEAN CORPUSCULAR HEMOGLOBIN (BEAKER) (test dump=396) 27.6 pg 25.7-32.2 MEAN CORPUSCULAR HEMOGLOBIN CONC (BEAKER) (test jwhi=306) 33.1 GM/DL 32.3-36.5 RED CELL DISTRIBUTION WIDTH (BEAKER) (test vwkj=724) 23.2 % 11.6-14.4 PLATELET COUNT (BEAKER) (test glsj=535) 149 K/CU MM 150-450 MEAN PLATELET VOLUME (BEAKER) (test xhvp=436) 12.3 fL 9.4-12.4 NUCLEATED RED BLOOD CELLS (BEAKER) (test rbpm=813) 0 /100 WBC 0-0 NEUTROPHILS RELATIVE PERCENT (BEAKER) (test cdcv=343) 87 % LYMPHOCYTES RELATIVE PERCENT (BEAKER) (test yirr=355) 6 % MONOCYTES RELATIVE PERCENT (BEAKER) (test xcce=042) 4 % EOSINOPHILS RELATIVE PERCENT (BEAKER) (test wcfs=191) 1 % BASOPHILS RELATIVE PERCENT (BEAKER) (test nnrw=051) 0 % NEUTROPHILS ABSOLUTE COUNT (BEAKER) (test ncnw=484) 19.59 K/ L 1.78-5.38 LYMPHOCYTES ABSOLUTE COUNT (BEAKER) (test sbkx=624) 1.42 K/ L 1.32-3.57 MONOCYTES ABSOLUTE COUNT (BEAKER) (test oyzk=175) 0.95 K/ L 0.30-0.82 EOSINOPHILS ABSOLUTE COUNT (BEAKER) (test blvr=014) 0.26 K/ L 0.04-0.54 BASOPHILS ABSOLUTE COUNT (BEAKER) (test icom=131) 0.07 K/ L 0.01-0.08 IMMATURE GRANULOCYTES-RELATIVE PERCENT (BEAKER) (test brfh=8533) 1 % 0-1 OXYGEN SATURATION, [id number] 14:09:00* Test Item Value Reference Range Comments O2 SATURATION (MEASURED) (BEAKER) (test rboh=4494) 55.4 % BLOOD GAS, [id number] 14:09:00* Test Item Value Reference Range Comments PH ARTERIAL (BEAKER) (test gfdt=428) 7.41 7.35-7.45 PCO2 ARTERIAL (BEAKER) (test ctxe=145) 33 mm Hg 35-45 PO2 ARTERIAL (BEAKER) (test witr=529) 255 mm Hg 80-90 O2 SATURATION ARTERIAL (BEAKER) (test rwze=837) 99.6 % 96.0-97.0 HCO3 ARTERIAL (BEAKER) (test hqgz=858) 21 mmol/L 21-29 BASE EXCESS ARTERIAL (BEAKER) (test tlqj=340) -3.3 mmol/L -2.0-3.0 THROMBOELASTOGRAPH (TEG)2017-08-09 14:08:00* Test Item Value Reference Range Comments TEG ACTIVATED CLOTTING TIME (BEAKER) (test rgmg=5212) 7.2 minutes 4.0-7.0 TEG FIBRINOGEN ACTIVITY (BEAKER) (test qwwl=9340) 75.3 degrees 61.0-73.0 TEG PLT. AGGREGATION (BEAKER) (test yxhk=1956) 68.0 MM 55.0-65.0 TGH ACTIVATED CLOTTING TIME (BEAKER) (test gyam=7604) 7.8 minutes 4.0-7.0 TGH FIBRINOGEN ACTIVITY (BEAKER) (test mwya=4034) 72.6 degrees 61.0-73.0 TGH PLT. AGGREGATION (BEAKER) (test ibvq=6871) 65.9 MM 55.0-65.0 CALCIUM, [id number] 14:07:00* Test Item Value Reference Range Comments CALCIUM IONIZED (BEAKER) (test jbcn=133) 1.16 mmol/L 1.12-1.27 PH, BLOOD (BEAKER) (test filc=5707) 7.41 LACTIC ACID, ARTERIAL, WHOLE [id number] 14:03:00* Test Item Value Reference Range Comments LACTATE BLOOD ARTERIAL (2) (BEAKER) (test dywv=9819) 2.3 mmol/L 0.5-2.2 Specimen slightly hemolyzed Effective 11/04/2015: Units/Reference Range ChangeNew: 0.5-2.2 mmol/L Previous: 5 -20 mg/dLPT/[id number] 13:53:00* Test Item Value Reference Range Comments PROTIME (BEAKER) (test uphg=460) 18.4 seconds 11.7-14.7 INR (BEAKER) (test sckc=794) 1.5 <=5.9 PARTIAL THROMBOPLASTIN TIME (BEAKER) (test palr=689) 41.6 seconds 22.5-36.0 RECOMMENDED COUMADIN/WARFARIN INR THERAPY RANGESSTANDARD DOSE: 2.0 - 3.0 Inclu navid: PROPHYLAXIS for venous thrombosis, systemic embolization; TREATMENT for dayna ous thrombosis and/or pulmonary embolus.HIGH RISK: Target INR is 2.5-3.5 for pat ients with mechanical heart valves.[id number] 13:52:00* Test Item Value Reference Range Comments FIBRINOGEN LEVEL (BEAKER) (test jigc=284) 438 mg/dl 225-434 [id number] 13:12:00* Test Item Value Reference Range Comments ACTIVATED CLOTTING TIME (BEAKER) (test zrza=713) 125 sec TESTED AT [address] [address] [id number] 13:12:00* Test Item Value Reference Range Comments ACTIVATED CLOTTING TIME (BEAKER) (test fego=791) 483 sec TESTED AT [address] [address] [id number] 13:12:00* Test Item Value Reference Range Comments ACTIVATED CLOTTING TIME (BEAKER) (test exbt=227) 511 sec TESTED AT [address] [address] [id number] 13:12:00* Test Item Value Reference Range Comments ACTIVATED CLOTTING TIME (BEAKER) (test pvoi=531) 566 sec TESTED AT [address] [address] PLATELET [id number] 12:52:00* Test Item Value Reference Range Comments PLATELET COUNT (BEAKER) (test lfbb=955) 135 K/CU MM 150-450 [id number] 12:19:00* Test Item Value Reference Range Comments FIBRINOGEN LEVEL (BEAKER) (test qrci=254) 453 mg/dl 225-434 [id number] 12:14:00* Test Item Value Reference Range Comments PARTIAL THROMBOPLASTIN TIME (BEAKER) (test ijic=830) 40.3 seconds 22.5-36.0 PROTHROMBIN TIME/[id number] 12:13:00* Test Item Value Reference Range Comments PROTIME (BEAKER) (test qbht=726) 21.0 seconds 11.7-14.7 INR (BEAKER) (test cuzp=416) 1.8 <=5.9 RECOMMENDED COUMADIN/WARFARIN INR THERAPY RANGESSTANDARD DOSE: 2.0 - 3.0 Inclu navid: PROPHYLAXIS for venous thrombosis, systemic embolization; TREATMENT for dayna ous thrombosis and/or pulmonary embolus.HIGH RISK: Target INR is 2.5-3.5 for pat ients with mechanical heart valves.BLOOD GAS, [id number] 11:51:00* Test Item Value Reference Range Comments PH ARTERIAL (BEAKER) (test yfcc=004) 7.46 7.35-7.45 PCO2 ARTERIAL (BEAKER) (test kbgn=040) 32 mmHg 35-45 PO2 ARTERIAL (BEAKER) (test ouap=746) 515 mmHg 80-90 O2 SATURATION ARTERIAL (BEAKER) (test zuzy=213) 99.9 % 96.0-97.0 HCO3 ARTERIAL (BEAKER) (test okau=266) 22 mmol/L 21-29 BASE EXCESS ARTERIAL (BEAKER) (test ydxt=920) -1.6 mmol/L -2.0-3.0 PATIENT TEMPERATURE (BEAKER) (test mgus=4824) 35.6 C FIO2 (BEAKER) (test nuof=1527) 100.0 % SODIUM NA-STAT [id number] 11:51:00* Test Item Value Reference Range Comments SODIUM (BEAKER) (test txdn=836) 130 meq/L 135-148 GLUCOSE-STAT [id number] 11:51:00* Test Item Value Reference Range Comments GLUCOSE RANDOM (BEAKER) (test ufby=977) 136 mg/dL 70-110 HGB/HCT (H&H) - STAT [id number] 11:51:00* Test Item Value Reference Range Comments HEMOGLOBIN (BEAKER) (test ymkh=649) 8.4 g/dL 13.0-16.8 HEMATOCRIT (BEAKER) (test ltky=638) 25.0 % 40.0-50.0 CALCIUM, [id number] 11:51:00* Test Item Value Reference Range Comments CALCIUM IONIZED (BEAKER) (test xcyu=668) 1.29 mmol/L 1.12-1.27 PH, BLOOD (BEAKER) (test igxo=0225) 7.44 POTASSIUM-STAT [id number] 11:50:00* Test Item Value Reference Range Comments POTASSIUM (BEAKER) (test xoom=267) 3.6 meq/L 3.6-5.5 SODIUM NA-STAT [id number] 11:19:00* Test Item Value Reference Range Comments SODIUM (BEAKER) (test hivs=175) 130 meq/L 135-148 HGB/HCT (H&H) - STAT [id number] 11:19:00* Test Item Value Reference Range Comments HEMOGLOBIN (BEAKER) (test ircu=563) 7.9 g/dL 13.0-16.8 HEMATOCRIT (BEAKER) (test gykj=005) 23.0 % 40.0-50.0 POTASSIUM-STAT [id number] 11:18:00* Test Item Value Reference Range Comments POTASSIUM (BEAKER) (test hmra=516) 3.8 meq/L 3.6-5.5 BLOOD GAS, [id number] 11:18:00* Test Item Value Reference Range Comments PH ARTERIAL (BEAKER) (test gmng=774) 7.42 7.35-7.45 PCO2 ARTERIAL (BEAKER) (test fkhg=931) 39 mmHg 35-45 PO2 ARTERIAL (BEAKER) (test ifjv=340) 234 mmHg 80-90 O2 SATURATION ARTERIAL (BEAKER) (test vygj=511) 99.5 % 96.0-97.0 HCO3 ARTERIAL (BEAKER) (test dfyh=151) 25 mmol/L 21-29 BASE EXCESS ARTERIAL (BEAKER) (test imqi=230) 0.1 mmol/L -2.0-3.0 PATIENT TEMPERATURE (BEAKER) (test fmxk=0942) 33.9 C FIO2 (BEAKER) (test eleh=7653) 75.0 % GLUCOSE-STAT [id number] 11:18:00* Test Item Value Reference Range Comments GLUCOSE RANDOM (BEAKER) (test kguh=434) 120 mg/dL 70-110 BLOOD GAS, [id number] 10:45:00* Test Item Value Reference Range Comments PH ARTERIAL (BEAKER) (test jqul=956) 7.40 7.35-7.45 PCO2 ARTERIAL (BEAKER) (test masi=607) 42 mmHg 35-45 PO2 ARTERIAL (BEAKER) (test euee=052) 231 mmHg 80-90 O2 SATURATION ARTERIAL (BEAKER) (test pqxg=235) 99.5 % 96.0-97.0 HCO3 ARTERIAL (BEAKER) (test vrgk=096) 27 mmol/L 21-29 BASE EXCESS ARTERIAL (BEAKER) (test uukh=012) 1.0 mmol/L -2.0-3.0 PATIENT TEMPERATURE (BEAKER) (test xaty=9206) 33.8 C FIO2 (BEAKER) (test nusp=7737) 70.0 % GLUCOSE-STAT [id number] 10:45:00* Test Item Value Reference Range Comments GLUCOSE RANDOM (BEAKER) (test plts=341) 125 mg/dL 70-110 SODIUM NA-STAT [id number] 10:45:00* Test Item Value Reference Range Comments SODIUM (BEAKER) (test ukdj=113) 128 meq/L 135-148 HGB/HCT (H&H) - STAT [id number] 10:45:00* Test Item Value Reference Range Comments HEMOGLOBIN (BEAKER) (test oxok=301) 8.1 g/dL 13.0-16.8 HEMATOCRIT (BEAKER) (test rttl=531) 24.0 % 40.0-50.0 POTASSIUM-STAT [id number] 10:44:00* Test Item Value Reference Range Comments POTASSIUM (BEAKER) (test qkws=276) 3.7 meq/L 3.6-5.5 BLOOD GAS, [id number] 10:14:00* Test Item Value Reference Range Comments PH ARTERIAL (BEAKER) (test bpmz=104) 7.43 7.35-7.45 PCO2 ARTERIAL (BEAKER) (test socm=675) 37 mmHg 35-45 PO2 ARTERIAL (BEAKER) (test qvyk=151) 283 mmHg 80-90 O2 SATURATION ARTERIAL (BEAKER) (test hoiz=854) 99.7 % 96.0-97.0 HCO3 ARTERIAL (BEAKER) (test mqnh=285) 25 mmol/L 21-29 BASE EXCESS ARTERIAL (BEAKER) (test vfqu=670) -0.3 mmol/L -2.0-3.0 PATIENT TEMPERATURE (BEAKER) (test javw=5851) 33.6 C FIO2 (BEAKER) (test tfgw=1405) 70.0 % SODIUM NA-STAT [id number] 10:14:00* Test Item Value Reference Range Comments SODIUM (BEAKER) (test swgy=160) 126 meq/L 135-148 POTASSIUM-STAT [id number] 10:14:00* Test Item Value Reference Range Comments POTASSIUM (BEAKER) (test aeup=127) 3.3 meq/L 3.6-5.5 GLUCOSE-STAT [id number] 10:14:00* Test Item Value Reference Range Comments GLUCOSE RANDOM (BEAKER) (test pahr=303) 152 mg/dL 70-110 HGB/HCT (H&H) - STAT [id number] 10:14:00* Test Item Value Reference Range Comments HEMOGLOBIN (BEAKER) (test wfky=099) 9.3 g/dL 13.0-16.8 HEMATOCRIT (BEAKER) (test txpj=629) 27.0 % 40.0-50.0 [id number] 10:00:00* Test Item Value Reference Range Comments ACTIVATED CLOTTING TIME (BEAKER) (test rtfv=835) 538 sec TESTED AT [facility] [address] [facility] [address] BLOOD GAS, [id number] 08:59:00* Test Item Value Reference Range Comments PH ARTERIAL (BEAKER) (test sfou=415) 7.43 7.35-7.45 PCO2 ARTERIAL (BEAKER) (test qnua=460) 41 mmHg 35-45 PO2 ARTERIAL (BEAKER) (test kqnc=468) 456 mmHg 80-90 O2 SATURATION ARTERIAL (BEAKER) (test dtoi=408) 99.9 % 96.0-97.0 HCO3 ARTERIAL (BEAKER) (test eagr=165) 26 mmol/L 21-29 BASE EXCESS ARTERIAL (BEAKER) (test cexc=196) 1.7 mmol/L -2.0-3.0 PATIENT TEMPERATURE (BEAKER) (test kxkt=4185) 36.6 C FIO2 (BEAKER) (test nmzv=2648) 100.0 % GLUCOSE-STAT [id number] 08:59:00* Test Item Value Reference Range Comments GLUCOSE RANDOM (BEAKER) (test tumb=851) 147 mg/dL 70-110 SODIUM NA-STAT [id number] 08:59:00* Test Item Value Reference Range Comments SODIUM (BEAKER) (test zjnx=631) 132 meq/L 135-148 HGB/HCT (H&H) - STAT [id number] 08:59:00* Test Item Value Reference Range Comments HEMOGLOBIN (BEAKER) (test rakh=829) 12.2 g/dL 13.0-16.8 HEMATOCRIT (BEAKER) (test huvn=178) 36.0 % 40.0-50.0 POTASSIUM-STAT [id number] 08:58:00* Test Item Value Reference Range Comments POTASSIUM (BEAKER) (test ubtu=869) 3.8 meq/L 3.6-5.5 PT/[id number] 06:55:00* Test Item Value Reference Range Comments PROTIME (BEAKER) (test sghn=546) 15.3 seconds 11.7-14.7 INR (BEAKER) (test kbzc=187) 1.2 <=5.9 PARTIAL THROMBOPLASTIN TIME (BEAKER) (test yvii=219) 38.8 seconds 22.5-36.0 RECOMMENDED COUMADIN/WARFARIN INR THERAPY RANGESSTANDARD DOSE: 2.0 - 3.0 Inclu navid: PROPHYLAXIS for venous thrombosis, systemic embolization; TREATMENT for dayna ous thrombosis and/or pulmonary embolus.HIGH RISK: Target INR is 2.5-3.5 for pat ients with mechanical heart valves.PROTHROMBIN TIME/[id number] 06:54:00* Test Item Value Reference Range Comments PROTIME (BEAKER) (test krpp=468) 15.3 seconds 11.7-14.7 INR (BEAKER) (test qovp=060) 1.2 <=5.9 RECOMMENDED COUMADIN/WARFARIN INR THERAPY RANGESSTANDARD DOSE: 2.0 - 3.0 Inclu navid: PROPHYLAXIS for venous thrombosis, systemic embolization; TREATMENT for dayna ous thrombosis and/or pulmonary embolus.HIGH RISK: Target INR is 2.5-3.5 for pat ients with mechanical heart valves.[id number] 04:58:00* Test Item Value Reference Range Comments MAGNESIUM (BEAKER) (test piep=190) 1.8 mg/dL 1.6-2.6 BASIC METABOLIC [id number] 04:58:00* Test Item Value Reference Range Comments SODIUM (BEAKER) (test unuc=758) 134 meq/L 136-145 POTASSIUM (BEAKER) (test mdpp=977) 3.2 meq/L 3.5-5.1 CHLORIDE (BEAKER) (test bphj=603) 95 meq/L 98-107 CO2 (BEAKER) (test jegi=896) 26 meq/L 22-29 BLOOD UREA NITROGEN (BEAKER) (test ovue=918) 47 mg/dL 7-21 CREATININE (BEAKER) (test efaa=613) 1.17 mg/dL 0.57-1.25 GLUCOSE RANDOM (BEAKER) (test oype=744) 152 mg/dL 70-105 CALCIUM (BEAKER) (test sbap=043) 9.5 mg/dL 8.4-10.2 EGFR (BEAKER) (test hhjj=5568) 60 mL/min/1.73 sq m ESTIMATED GFR IS NOT ACCURATE CREATININE CLEARANCE IN PREDICTING GLOMERULAR FILTRATION RATE. ESTIMATED GFR IS NOT APPLICABLE FOR DIALYSIS PATIENTS. CBC W/PLT COUNT & AUTO [id number] 04:40:00* Test Item Value Reference Range Comments WHITE BLOOD CELL COUNT (BEAKER) (test umqw=805) 11.3 K/ L 3.5-10.5 RED BLOOD CELL COUNT (BEAKER) (test nguq=998) 4.23 M/ L 4.63-6.08 HEMOGLOBIN (BEAKER) (test cnfm=873) 11.0 GM/DL 13.7-17.5 HEMATOCRIT (BEAKER) (test xsqm=615) 34.5 % 40.1-51.0 MEAN CORPUSCULAR VOLUME (BEAKER) (test qhrz=121) 81.6 fL 79.0-92.2 MEAN CORPUSCULAR HEMOGLOBIN (BEAKER) (test zljo=785) 26.0 pg 25.7-32.2 MEAN CORPUSCULAR HEMOGLOBIN CONC (BEAKER) (test fcdp=998) 31.9 GM/DL 32.3-36.5 RED CELL DISTRIBUTION WIDTH (BEAKER) (test ufph=488) 23.4 % 11.6-14.4 PLATELET COUNT (BEAKER) (test saet=349) 301 K/CU MM 150-450 MEAN PLATELET VOLUME (BEAKER) (test anpy=556) 13.1 fL 9.4-12.4 NUCLEATED RED BLOOD CELLS (BEAKER) (test wxsd=478) 0 /100 WBC 0-0 NEUTROPHILS RELATIVE PERCENT (BEAKER) (test ynso=842) 72 % LYMPHOCYTES RELATIVE PERCENT (BEAKER) (test fsix=221) 15 % MONOCYTES RELATIVE PERCENT (BEAKER) (test qzxd=237) 9 % EOSINOPHILS RELATIVE PERCENT (BEAKER) (test ztxz=888) 2 % BASOPHILS RELATIVE PERCENT (BEAKER) (test yrxa=588) 1 % NEUTROPHILS ABSOLUTE COUNT (BEAKER) (test anlb=327) 8.18 K/ L 1.78-5.38 LYMPHOCYTES ABSOLUTE COUNT (BEAKER) (test thfg=058) 1.73 K/ L 1.32-3.57 MONOCYTES ABSOLUTE COUNT (BEAKER) (test tlfs=992) 1.07 K/ L 0.30-0.82 EOSINOPHILS ABSOLUTE COUNT (BEAKER) (test wbzl=229) 0.20 K/ L 0.04-0.54 BASOPHILS ABSOLUTE COUNT (BEAKER) (test dqxh=706) 0.09 K/ L 0.01-0.08 IMMATURE GRANULOCYTES-RELATIVE PERCENT (BEAKER) (test bznm=9559) 1 % 0-1 [id number] 19:01:00* Test Item Value Reference Range Comments POTASSIUM (BEAKER) (test eeow=380) 3.9 meq/L 3.5-5.1 Check Serum Potassium level 2 hours after oral potassium replacement completed o r 30 min after intravenous potassium replacement.[id number] 19:01:00* Test Item Value Reference Range Comments MAGNESIUM (BEAKER) (test luai=113) 2.3 mg/dL 1.6-2.6 Check Serum Potassium level 2 hours after oral potassium replacement completed o r 30 min after intravenous potassium replacement.RAD, CHEST, 1 VIEW, NON DEPT 2017-08-08 07:22:00Reason for exam:->CHF, volume overloadShould this be performed at the bedside?->YesFINAL REPORT Chest one view AP 08/08/2017 7:21 AM CLINICAL INDICATION: CHF, volume overload COMPARISON: 08/06/2017 IMPRESSION: Support hardware is unchanged in position. Cardiomediastinal contours are stable. There is mild pulmonary edema. Opacity in the right lung base may reflect atelectasis or pneumonia. Signed: Leonora Kincaid Verified Date/Time: 08/08/2017 07:22:04 Reading Location: [facility] Radiology Reading Room [id number] 05:23:00* Test Item Value Reference Range Comments MAGNESIUM (BEAKER) (test qhzd=151) 1.7 mg/dL 1.6-2.6 BASIC METABOLIC [id number] 05:23:00* Test Item Value Reference Range Comments SODIUM (BEAKER) (test sglz=630) 134 meq/L 136-145 POTASSIUM (BEAKER) (test uhdn=933) 3.2 meq/L 3.5-5.1 CHLORIDE (BEAKER) (test sgtz=965) 96 meq/L 98-107 CO2 (BEAKER) (test sdac=053) 27 meq/L 22-29 BLOOD UREA NITROGEN (BEAKER) (test iabj=965) 50 mg/dL 7-21 CREATININE (BEAKER) (test lnry=802) 1.14 mg/dL 0.57-1.25 GLUCOSE RANDOM (BEAKER) (test meuw=682) 167 mg/dL 70-105 CALCIUM (BEAKER) (test nwaq=573) 9.3 mg/dL 8.4-10.2 EGFR (BEAKER) (test ivlx=9518) 62 mL/min/1.73 sq m ESTIMATED GFR IS NOT ACCURATE CREATININE CLEARANCE IN PREDICTING GLOMERULAR FILTRATION RATE. ESTIMATED GFR IS NOT APPLICABLE FOR DIALYSIS PATIENTS. CBC W/PLT COUNT & AUTO [id number] 05:18:00* Test Item Value Reference Range Comments WHITE BLOOD CELL COUNT (BEAKER) (test rzya=139) 11.0 K/ L 3.5-10.5 RED BLOOD CELL COUNT (BEAKER) (test xevt=088) 4.33 M/ L 4.63-6.08 HEMOGLOBIN (BEAKER) (test ddvo=040) 11.5 GM/DL 13.7-17.5 HEMATOCRIT (BEAKER) (test ldxc=499) 35.5 % 40.1-51.0 MEAN CORPUSCULAR VOLUME (BEAKER) (test ocze=088) 82.0 fL 79.0-92.2 MEAN CORPUSCULAR HEMOGLOBIN (BEAKER) (test psxz=992) 26.6 pg 25.7-32.2 MEAN CORPUSCULAR HEMOGLOBIN CONC (BEAKER) (test uxhw=868) 32.4 GM/DL 32.3-36.5 RED CELL DISTRIBUTION WIDTH (BEAKER) (test ejhr=260) 23.1 % 11.6-14.4 PLATELET COUNT (BEAKER) (test slte=037) 309 K/CU MM 150-450 MEAN PLATELET VOLUME (BEAKER) (test wsqr=652) 12.7 fL 9.4-12.4 NUCLEATED RED BLOOD CELLS (BEAKER) (test tfxf=012) 0 /100 WBC 0-0 NEUTROPHILS RELATIVE PERCENT (BEAKER) (test natb=403) 75 % LYMPHOCYTES RELATIVE PERCENT (BEAKER) (test zzwk=522) 12 % MONOCYTES RELATIVE PERCENT (BEAKER) (test sxgl=703) 10 % EOSINOPHILS RELATIVE PERCENT (BEAKER) (test dhta=168) 1 % BASOPHILS RELATIVE PERCENT (BEAKER) (test rwlf=415) 1 % NEUTROPHILS ABSOLUTE COUNT (BEAKER) (test vlhh=612) 8.26 K/ L 1.78-5.38 LYMPHOCYTES ABSOLUTE COUNT (BEAKER) (test byfr=562) 1.36 K/ L 1.32-3.57 MONOCYTES ABSOLUTE COUNT (BEAKER) (test iwdk=173) 1.11 K/ L 0.30-0.82 EOSINOPHILS ABSOLUTE COUNT (BEAKER) (test xcwu=585) 0.09 K/ L 0.04-0.54 BASOPHILS ABSOLUTE COUNT (BEAKER) (test qrcz=633) 0.10 K/ L 0.01-0.08 IMMATURE GRANULOCYTES-RELATIVE PERCENT (BEAKER) (test rcfz=2159) 1 % 0-1 HEPATIC FUNCTION [id number] 14:42:00* Test Item Value Reference Range Comments TOTAL PROTEIN (BEAKER) (test vafi=293) 7.1 gm/dL 6.0-8.3 ALBUMIN (BEAKER) (test xktk=7388) 3.2 g/dL 3.5-5.0 BILIRUBIN TOTAL (BEAKER) (test vold=587) 2.1 mg/dL 0.2-1.2 BILIRUBIN DIRECT (BEAKER) (test fcdo=350) 1.4 mg/dL 0.1-0.5 ALKALINE PHOSPHATASE (BEAKER) (test mhhe=213) 123 U/L 40-150 AST (SGOT) (BEAKER) (test joyv=896) 35 U/L 5-34 ALT (SGPT) (BEAKER) (test kbtv=270) 20 U/L 6-55 CBC W/PLT COUNT & AUTO [id number] 12:00:00* Test Item Value Reference Range Comments WHITE BLOOD CELL COUNT (BEAKER) (test nlqv=223) 8.9 K/ L 3.5-10.5 RED BLOOD CELL COUNT (BEAKER) (test ccdb=779) 4.42 M/ L 4.63-6.08 HEMOGLOBIN (BEAKER) (test oggp=892) 11.7 GM/DL 13.7-17.5 HEMATOCRIT (BEAKER) (test cxio=786) 36.4 % 40.1-51.0 MEAN CORPUSCULAR VOLUME (BEAKER) (test bkss=679) 82.4 fL 79.0-92.2 MEAN CORPUSCULAR HEMOGLOBIN (BEAKER) (test kgbq=088) 26.5 pg 25.7-32.2 MEAN CORPUSCULAR HEMOGLOBIN CONC (BEAKER) (test norr=029) 32.1 GM/DL 32.3-36.5 RED CELL DISTRIBUTION WIDTH (BEAKER) (test kgty=937) 23.0 % 11.6-14.4 PLATELET COUNT (BEAKER) (test tbpm=390) 317 K/CU MM 150-450 MEAN PLATELET VOLUME (BEAKER) (test sqsu=369) 12.1 fL 9.4-12.4 NUCLEATED RED BLOOD CELLS (BEAKER) (test qfyi=632) 0 /100 WBC 0-0 NEUTROPHILS RELATIVE PERCENT (BEAKER) (test ycxk=153) 70 % LYMPHOCYTES RELATIVE PERCENT (BEAKER) (test eizt=441) 16 % MONOCYTES RELATIVE PERCENT (BEAKER) (test gaqq=244) 11 % EOSINOPHILS RELATIVE PERCENT (BEAKER) (test iklk=690) 2 % BASOPHILS RELATIVE PERCENT (BEAKER) (test cpgj=104) 1 % NEUTROPHILS ABSOLUTE COUNT (BEAKER) (test juzl=959) 6.16 K/ L 1.78-5.38 LYMPHOCYTES ABSOLUTE COUNT (BEAKER) (test maky=997) 1.43 K/ L 1.32-3.57 MONOCYTES ABSOLUTE COUNT (BEAKER) (test asbx=917) 0.99 K/ L 0.30-0.82 EOSINOPHILS ABSOLUTE COUNT (BEAKER) (test oibk=471) 0.13 K/ L 0.04-0.54 BASOPHILS ABSOLUTE COUNT (BEAKER) (test wrbs=952) 0.10 K/ L 0.01-0.08 IMMATURE GRANULOCYTES-RELATIVE PERCENT (BEAKER) (test wvmy=3013) 1 % 0-1 [id number] 06:17:00* Test Item Value Reference Range Comments MAGNESIUM (BEAKER) (test fvmt=149) 2.0 mg/dL 1.6-2.6 BASIC METABOLIC [id number] 06:17:00* Test Item Value Reference Range Comments SODIUM (BEAKER) (test cguy=286) 133 meq/L 136-145 POTASSIUM (BEAKER) (test cmhj=959) 4.4 meq/L 3.5-5.1 CHLORIDE (BEAKER) (test kxok=703) 97 meq/L 98-107 CO2 (BEAKER) (test fksv=775) 25 meq/L 22-29 BLOOD UREA NITROGEN (BEAKER) (test nxuu=487) 59 mg/dL 7-21 CREATININE (BEAKER) (test aawy=966) 1.37 mg/dL 0.57-1.25 GLUCOSE RANDOM (BEAKER) (test syfs=858) 126 mg/dL 70-105 CALCIUM (BEAKER) (test lntq=750) 9.3 mg/dL 8.4-10.2 EGFR (BEAKER) (test fyxz=8408) 50 mL/min/1.73 sq m ESTIMATED GFR IS NOT ACCURATE CREATININE CLEARANCE IN PREDICTING GLOMERULAR FILTRATION RATE. ESTIMATED GFR IS NOT APPLICABLE FOR DIALYSIS PATIENTS. POCT-GLUCOSE [id number] 17:54:00* Test Item Value Reference Range Comments POC-GLUCOSE METER (BEAKER) (test nsfl=2960) 129 mg/dL 70-110 TESTED AT [facility] [address] [facility] [address] POCT-GLUCOSE [id number] 12:42:00* Test Item Value Reference Range Comments POC-GLUCOSE METER (BEAKER) (test pyyo=4968) 147 mg/dL 70-110 TESTED AT [facility] [address] [facility] [address] RAD, CHEST, 1 VIEW, NON [id number] 09:44:00Reason for exam:->check picc placementShould this be performed at the bedside?->YesFINAL REPORT INDICATION: check picc placement COMPARISON: August 04, 2017 TECHNIQUE: Chest radiograph, single view, portable technique. FINDINGS / IMPRESSION: There is a new right PICC line that terminates at the cavoatrial junction. 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 No pulmonary edema or pleural effusion. Previously demonstrated questionable nodular opacity in the left lower lung is no longer appreciated. No consolidati on or pneumothorax. Intact median sternotomy wires. Signed: Edson Vera [facility] eport Verified Date/Time: 08/06/2017 09:44:25 Reading Location: [facility] C013X Or [facility] Consult Reading Room [id number] 05:39:00* Test Item Value Reference Range Comments MAGNESIUM (BEAKER) (test mnex=450) 1.4 mg/dL 1.6-2.6 BASIC METABOLIC [id number] 05:39:00* Test Item Value Reference Range Comments SODIUM (BEAKER) (test atoi=600) 134 meq/L 136-145 POTASSIUM (BEAKER) (test gdtz=119) 3.2 meq/L 3.5-5.1 CHLORIDE (BEAKER) (test ukkf=576) 93 meq/L 98-107 CO2 (BEAKER) (test cfdm=278) 26 meq/L 22-29 BLOOD UREA NITROGEN (BEAKER) (test fxgy=024) 56 mg/dL 7-21 CREATININE (BEAKER) (test sskh=000) 1.30 mg/dL 0.57-1.25 GLUCOSE RANDOM (BEAKER) (test xbxr=654) 82 mg/dL 70-105 CALCIUM (BEAKER) (test andn=918) 9.1 mg/dL 8.4-10.2 EGFR (BEAKER) (test ppjd=7324) 53 mL/min/1.73 sq m ESTIMATED GFR IS NOT ACCURATE CREATININE CLEARANCE IN PREDICTING GLOMERULAR FILTRATION RATE. ESTIMATED GFR IS NOT APPLICABLE FOR DIALYSIS PATIENTS. RAD, CHEST, 1 VIEW, NON [id number] 19:33:00Reason for exam:->HYPOTENSION FINAL REPORT EXAMINATION: AP PORTABLE CHEST RADIOGRAPH CLINICAL INDICATION: Hypotension IMPRESSION: Compared with 07/03/2017. Midline christin rnotomy and left subclavian AICD are again noted. The heart is enlarged but stab le. A new or more conspicuous 2 cm nodular opacity projects over the left heart border at the left lung base. Finding may reflect artifact including the superim posed left nipple shadow. However, a pulmonary nodule (benign versus malignant) cannot be excluded. Overall aeration of the lungs has improved in the interval. No definite evidence of pulmonary edema, pleural effusion, pneumothorax or acute osseous abnormality. Note: Upright PA and lateral chest radiographs could be pe rformed for further characterization of the new small nodular opacity projects o rajiv the left lung base, possibly with nipple markers. Alternatively, a chest CT could be performed. Signed: Felipe Craveneport Verified Date/Time: 19:33:53 Reading Location: [address] Reading Room [facility] signed by: FELIPE CRAVEN M.D. on 08/04/2017 07:33 PM TROPONIN [id number] 18:29:00* Test Item Value Reference Range Comments TROPONIN I (ISAAC) (test biey=978) 0.20 ng/mL 0.00-0.03 Troponin I (TnI) levels must be interpreted in the context of the presenting sym ptoms and the clinical findings. Elevated TnI levels indicate myocardial damage, but are not specific for ischemic heart disease. Elevated TnI levels are seen in patients with other cardiac conditions (including myocarditis and congestive h eart failure), and slight TnI elevations occur in patients with other conditions , including sepsis, renal failure, acidosis, acute neurological disease, and per sistent tachyarrhythmia.CREATINE KINASE (CK), TOTAL AND [id number] 18:18:00* Test Item Value Reference Range Comments CREATINE KINASE TOTAL (ISAAC) (test ojvz=891) 26 U/L 29-200 CREATINE KINASE-MB (BEAKER) (test yqkl=167) 1.9 ng/mL 0.0-6.6 CREATINE KINASE-MB INDEX (BEAKER) (test wvxc=982) 7.3 % CK-MB Reference Range:<6.7 Normal6.7-10.0 Borderline>10.0 AbnormalB- TYPE NATRIURETIC FACTOR (BNP)2017-08-04 18:17:00* Test Item Value Reference Range Comments B-TYPE NATRIURETIC PEPTIDE (BEAKER) (test hlhi=531) 4354 pg/mL 0-100 [id number] 18:10:00* Test Item Value Reference Range Comments MAGNESIUM (BEAKER) (test syme=045) 1.4 mg/dL 1.6-2.6 BASIC METABOLIC [id number] 18:10:00* Test Item Value Reference Range Comments SODIUM (BEAKER) (test cpop=007) 137 meq/L 136-145 POTASSIUM (BEAKER) (test nhfx=439) 3.8 meq/L 3.5-5.1 CHLORIDE (BEAKER) (test vsnm=487) 94 meq/L 98-107 CO2 (BEAKER) (test joel=651) 31 meq/L 22-29 BLOOD UREA NITROGEN (BEAKER) (test hjwf=909) 63 mg/dL 7-21 CREATININE (BEAKER) (test kfdj=148) 1.69 mg/dL 0.57-1.25 GLUCOSE RANDOM (BEAKER) (test vakr=548) 106 mg/dL 70-105 CALCIUM (BEAKER) (test rtpz=275) 9.5 mg/dL 8.4-10.2 EGFR (BEAKER) (test onna=2958) 39 mL/min/1.73 sq m ESTIMATED GFR IS NOT ACCURATE CREATININE CLEARANCE IN PREDICTING GLOMERULAR FILTRATION RATE. ESTIMATED GFR IS NOT APPLICABLE FOR DIALYSIS PATIENTS. PT/[id number] 18:08:00* Test Item Value Reference Range Comments PROTIME (BEAKER) (test jdsh=831) 14.1 seconds 11.7-14.7 INR (BEAKER) (test tfiz=524) 1.1 <=5.9 PARTIAL THROMBOPLASTIN TIME (BEAKER) (test lpsa=803) 34.1 seconds 22.5-36.0 RECOMMENDED COUMADIN/WARFARIN INR THERAPY RANGESSTANDARD DOSE: 2.0 - 3.0 Inclu navid: PROPHYLAXIS for venous thrombosis, systemic embolization; TREATMENT for dayna ous thrombosis and/or pulmonary embolus.HIGH RISK: Target INR is 2.5-3.5 for pat ients with mechanical heart valves.CBC W/PLT COUNT & AUTO [id number] 18:07:00* Test Item Value Reference Range Comments WHITE BLOOD CELL COUNT (BEAKER) (test ogfl=793) 8.6 K/ L 3.5-10.5 RED BLOOD CELL COUNT (BEAKER) (test rddy=430) 4.71 M/ L 4.63-6.08 HEMOGLOBIN (BEAKER) (test ourf=036) 12.4 GM/DL 13.7-17.5 HEMATOCRIT (BEAKER) (test icze=694) 39.1 % 40.1-51.0 MEAN CORPUSCULAR VOLUME (BEAKER) (test qfhr=494) 83.0 fL 79.0-92.2 MEAN CORPUSCULAR HEMOGLOBIN (BEAKER) (test lfpd=236) 26.3 pg 25.7-32.2 MEAN CORPUSCULAR HEMOGLOBIN CONC (BEAKER) (test mwyq=874) 31.7 GM/DL 32.3-36.5 RED CELL DISTRIBUTION WIDTH (BEAKER) (test bpnw=367) 23.5 % 11.6-14.4 PLATELET COUNT (BEAKER) (test mhee=300) 294 K/CU MM 150-450 MEAN PLATELET VOLUME (BEAKER) (test rorw=143) 12.5 fL 9.4-12.4 NUCLEATED RED BLOOD CELLS (BEAKER) (test mpov=190) 0 /100 WBC 0-0 NEUTROPHILS RELATIVE PERCENT (BEAKER) (test blzc=216) 70 % LYMPHOCYTES RELATIVE PERCENT (BEAKER) (test mkhw=356) 15 % MONOCYTES RELATIVE PERCENT (BEAKER) (test ojdt=927) 10 % EOSINOPHILS RELATIVE PERCENT (BEAKER) (test fgzg=228) 3 % BASOPHILS RELATIVE PERCENT (BEAKER) (test uumb=472) 1 % NEUTROPHILS ABSOLUTE COUNT (BEAKER) (test psko=900) 6.05 K/ L 1.78-5.38 LYMPHOCYTES ABSOLUTE COUNT (BEAKER) (test dhxr=032) 1.28 K/ L 1.32-3.57 MONOCYTES ABSOLUTE COUNT (BEAKER) (test kwel=006) 0.85 K/ L 0.30-0.82 EOSINOPHILS ABSOLUTE COUNT (BEAKER) (test qqte=797) 0.28 K/ L 0.04-0.54 BASOPHILS ABSOLUTE COUNT (BEAKER) (test fjvd=104) 0.11 K/ L 0.01-0.08 IMMATURE GRANULOCYTES-RELATIVE PERCENT (BEAKER) (test cafa=8786) 0 % 0-1 B-TYPE NATRIURETIC FACTOR (BNP)2017-07-25 11:54:00* Test Item Value Reference Range Comments B-TYPE NATRIURETIC PEPTIDE (BEAKER) (test utte=906) 6911 pg/mL 0-100 CBC W/PLT COUNT & AUTO [id number] 11:22:00* Test Item Value Reference Range Comments WHITE BLOOD CELL COUNT (BEAKER) (test nzgp=840) 8.4 K/ L 3.5-10.5 RED BLOOD CELL COUNT (BEAKER) (test usbs=488) 4.88 M/ L 4.63-6.08 HEMOGLOBIN (BEAKER) (test ppsj=388) 13.1 GM/DL 13.7-17.5 HEMATOCRIT (BEAKER) (test bldd=447) 39.2 % 40.1-51.0 MEAN CORPUSCULAR VOLUME (BEAKER) (test esnh=909) 80.3 fL 79.0-92.2 MEAN CORPUSCULAR HEMOGLOBIN (BEAKER) (test khpo=569) 26.8 pg 25.7-32.2 MEAN CORPUSCULAR HEMOGLOBIN CONC (BEAKER) (test hpvv=505) 33.4 GM/DL 32.3-36.5 RED CELL DISTRIBUTION WIDTH (BEAKER) (test ggiv=033) 23.7 % 11.6-14.4 PLATELET COUNT (BEAKER) (test rrjh=169) 120 K/CU MM 150-450 MEAN PLATELET VOLUME (BEAKER) (test yhrr=191) fL 9.4-12.4 Unable to report due to abnormal Platelet population distribution. NUCLEATED RED BLOOD CELLS (BEAKER) (test crql=378) 0 /100 WBC 0-0 NEUTROPHILS RELATIVE PERCENT (BEAKER) (test dviy=782) 78 % LYMPHOCYTES RELATIVE PERCENT (BEAKER) (test untg=325) 12 % MONOCYTES RELATIVE PERCENT (BEAKER) (test shab=375) 7 % EOSINOPHILS RELATIVE PERCENT (BEAKER) (test vvor=437) 2 % BASOPHILS RELATIVE PERCENT (BEAKER) (test dmft=453) 1 % NEUTROPHILS ABSOLUTE COUNT (BEAKER) (test jtmo=647) 6.54 K/ L 1.78-5.38 LYMPHOCYTES ABSOLUTE COUNT (BEAKER) (test oier=316) 1.04 K/ L 1.32-3.57 MONOCYTES ABSOLUTE COUNT (BEAKER) (test fguo=848) 0.56 K/ L 0.30-0.82 EOSINOPHILS ABSOLUTE COUNT (BEAKER) (test eikt=685) 0.16 K/ L 0.04-0.54 BASOPHILS ABSOLUTE COUNT (BEAKER) (test whtm=470) 0.05 K/ L 0.01-0.08 IMMATURE GRANULOCYTES-RELATIVE PERCENT (BEAKER) (test ivpq=5164) 1 % 0-1 BASIC METABOLIC [id number] 11:19:00* Test Item Value Reference Range Comments SODIUM (BEAKER) (test aglf=038) 141 meq/L 136-145 POTASSIUM (BEAKER) (test nbpi=056) 3.1 meq/L 3.5-5.1 CHLORIDE (BEAKER) (test hgre=790) 92 meq/L 98-107 CO2 (BEAKER) (test qdwp=078) 36 meq/L 22-29 BLOOD UREA NITROGEN (BEAKER) (test dqzb=305) 86 mg/dL 7-21 CREATININE (BEAKER) (test jfsr=748) 2.15 mg/dL 0.57-1.25 GLUCOSE RANDOM (BEAKER) (test hhgm=350) 115 mg/dL 70-105 CALCIUM (BEAKER) (test qcbr=698) 9.6 mg/dL 8.4-10.2 EGFR (BEAKER) (test czow=4638) 30 mL/min/1.73 sq m ESTIMATED GFR IS NOT ACCURATE CREATININE CLEARANCE IN PREDICTING GLOMERULAR FILTRATION RATE. ESTIMATED GFR IS NOT APPLICABLE FOR DIALYSIS PATIENTS. Specimen slightly [id number] 04:41:00* Test Item Value Reference Range Comments MAGNESIUM (BEAKER) (test vgki=728) 2.2 mg/dL 1.6-2.6 BASIC METABOLIC [id number] 04:41:00* Test Item Value Reference Range Comments SODIUM (BEAKER) (test sxvc=388) 139 meq/L 136-145 POTASSIUM (BEAKER) (test ctxh=109) 4.0 meq/L 3.5-5.1 CHLORIDE (BEAKER) (test kosy=685) 104 meq/L 98-107 CO2 (BEAKER) (test achq=563) 21 meq/L 22-29 BLOOD UREA NITROGEN (BEAKER) (test bava=597) 62 mg/dL 7-21 CREATININE (BEAKER) (test rkzd=136) 1.83 mg/dL 0.57-1.25 GLUCOSE RANDOM (BEAKER) (test cnau=777) 96 mg/dL 70-105 CALCIUM (BEAKER) (test pubk=503) 9.1 mg/dL 8.4-10.2 EGFR (BEAKER) (test gian=0270) 36 mL/min/1.73 sq m ESTIMATED GFR IS NOT ACCURATE CREATININE CLEARANCE IN PREDICTING GLOMERULAR FILTRATION RATE. ESTIMATED GFR IS NOT APPLICABLE FOR DIALYSIS PATIENTS. CBC W/PLT COUNT & AUTO [id number] 04:21:00* Test Item Value Reference Range Comments WHITE BLOOD CELL COUNT (BEAKER) (test rpcp=832) 8.5 K/ L 3.5-10.5 RED BLOOD CELL COUNT (BEAKER) (test yvqi=226) 4.94 M/ L 4.63-6.08 HEMOGLOBIN (BEAKER) (test jlxi=063) 13.0 GM/DL 13.7-17.5 HEMATOCRIT (BEAKER) (test thrx=078) 40.6 % 40.1-51.0 MEAN CORPUSCULAR VOLUME (BEAKER) (test ptyo=339) 82.2 fL 79.0-92.2 MEAN CORPUSCULAR HEMOGLOBIN (BEAKER) (test cuvq=050) 26.3 pg 25.7-32.2 MEAN CORPUSCULAR HEMOGLOBIN CONC (BEAKER) (test ghyq=155) 32.0 GM/DL 32.3-36.5 RED CELL DISTRIBUTION WIDTH (BEAKER) (test dkvz=768) 22.5 % 11.6-14.4 PLATELET COUNT (BEAKER) (test nsqg=401) 282 K/CU MM 150-450 MEAN PLATELET VOLUME (BEAKER) (test tgsc=949) 12.4 fL 9.4-12.4 NUCLEATED RED BLOOD CELLS (BEAKER) (test bwbf=078) 0 /100 WBC 0-0 NEUTROPHILS RELATIVE PERCENT (BEAKER) (test htif=045) 71 % LYMPHOCYTES RELATIVE PERCENT (BEAKER) (test kpnj=484) 18 % MONOCYTES RELATIVE PERCENT (BEAKER) (test eivy=207) 7 % EOSINOPHILS RELATIVE PERCENT (BEAKER) (test jjbx=535) 2 % BASOPHILS RELATIVE PERCENT (BEAKER) (test egjj=763) 1 % NEUTROPHILS ABSOLUTE COUNT (BEAKER) (test xkur=296) 6.08 K/ L 1.78-5.38 LYMPHOCYTES ABSOLUTE COUNT (BEAKER) (test yyro=823) 1.53 K/ L 1.32-3.57 MONOCYTES ABSOLUTE COUNT (BEAKER) (test zgch=048) 0.60 K/ L 0.30-0.82 EOSINOPHILS ABSOLUTE COUNT (BEAKER) (test cckn=794) 0.20 K/ L 0.04-0.54 BASOPHILS ABSOLUTE COUNT (BEAKER) (test qyoj=597) 0.07 K/ L 0.01-0.08 IMMATURE GRANULOCYTES-RELATIVE PERCENT (BEAKER) (test adrx=8083) 0 % 0-1 [id number] 06:34:00* Test Item Value Reference Range Comments MAGNESIUM (BEAKER) (test aoun=263) 2.3 mg/dL 1.6-2.6 Specimen slightly hemolyzed BASIC METABOLIC [id number] 06:34:00* Test Item Value Reference Range Comments SODIUM (BEAKER) (test ufar=025) 140 meq/L 136-145 POTASSIUM (BEAKER) (test bpkk=423) 4.2 meq/L 3.5-5.1 Specimen slightly hemolyzed CHLORIDE (BEAKER) (test yqrq=617) 105 meq/L 98-107 CO2 (BEAKER) (test dunm=403) 20 meq/L 22-29 BLOOD UREA NITROGEN (BEAKER) (test fcwc=348) 63 mg/dL 7-21 CREATININE (BEAKER) (test liei=321) 2.03 mg/dL 0.57-1.25 Specimen slightly hemolyzed GLUCOSE RANDOM (BEAKER) (test vvls=925) 100 mg/dL 70-105 CALCIUM (BEAKER) (test ujcl=313) 9.4 mg/dL 8.4-10.2 EGFR (BEAKER) (test hjwb=5371) 32 mL/min/1.73 sq m ESTIMATED GFR IS NOT ACCURATE CREATININE CLEARANCE IN PREDICTING GLOMERULAR FILTRATION RATE. ESTIMATED GFR IS NOT APPLICABLE FOR DIALYSIS PATIENTS. CBC W/PLT COUNT & AUTO [id number] 06:19:00* Test Item Value Reference Range Comments WHITE BLOOD CELL COUNT (BEAKER) (test qhqs=364) 8.1 K/ L 3.5-10.5 RED BLOOD CELL COUNT (BEAKER) (test kbzd=363) 4.96 M/ L 4.63-6.08 HEMOGLOBIN (BEAKER) (test vrfz=396) 13.2 GM/DL 13.7-17.5 HEMATOCRIT (BEAKER) (test hcgf=071) 40.5 % 40.1-51.0 MEAN CORPUSCULAR VOLUME (BEAKER) (test wbhq=344) 81.7 fL 79.0-92.2 MEAN CORPUSCULAR HEMOGLOBIN (BEAKER) (test hbzf=195) 26.6 pg 25.7-32.2 MEAN CORPUSCULAR HEMOGLOBIN CONC (BEAKER) (test itaf=388) 32.6 GM/DL 32.3-36.5 RED CELL DISTRIBUTION WIDTH (BEAKER) (test tllb=659) 22.3 % 11.6-14.4 PLATELET COUNT (BEAKER) (test vuxz=407) 302 K/CU MM 150-450 MEAN PLATELET VOLUME (BEAKER) (test usag=693) 12.2 fL 9.4-12.4 NUCLEATED RED BLOOD CELLS (BEAKER) (test jbzt=596) 0 /100 WBC 0-0 NEUTROPHILS RELATIVE PERCENT (BEAKER) (test tdka=424) 67 % LYMPHOCYTES RELATIVE PERCENT (BEAKER) (test qbom=271) 21 % MONOCYTES RELATIVE PERCENT (BEAKER) (test wdtg=045) 9 % EOSINOPHILS RELATIVE PERCENT (BEAKER) (test ivbv=534) 2 % BASOPHILS RELATIVE PERCENT (BEAKER) (test kkww=273) 1 % NEUTROPHILS ABSOLUTE COUNT (BEAKER) (test emaf=034) 5.41 K/ L 1.78-5.38 LYMPHOCYTES ABSOLUTE COUNT (BEAKER) (test hmxd=717) 1.72 K/ L 1.32-3.57 MONOCYTES ABSOLUTE COUNT (BEAKER) (test rbuk=179) 0.73 K/ L 0.30-0.82 EOSINOPHILS ABSOLUTE COUNT (BEAKER) (test jsld=648) 0.16 K/ L 0.04-0.54 BASOPHILS ABSOLUTE COUNT (BEAKER) (test dwbo=254) 0.08 K/ L 0.01-0.08 IMMATURE GRANULOCYTES-RELATIVE PERCENT (BEAKER) (test uzrg=1245) 0 % 0-1 RAD, CHEST, 1 VIEW, NON [id number] 04:58:00Reason for exam:->s/p thoracocentesisShould this be performed at the bedside?->YesFINAL REPORT RAD, CHEST, 1 VIEW, NON DEPT INDICATION: s/p thoracocentesis COMPARISON: Prior day's exam TECHNIQUE: Portable frontal view of the chest. IMPRESSION: Stable PICC line.Stable cardiomegaly.No pneumothorax.Stable vascular congestion.Left lung base not well evaluated due to underpenetration.No acute osseous abnormality. Signed: Audi Beasley MDReport Verified Date/Time: 07/03/2017 04:58:02 Reading Location: [facility] C013X Ortho Consult Reading Room , CHEST, 1 VIEW, NON [id number] 12:11:00Reason for exam:->post left thoracentesis Reason for exam:->pt is in US room 1FINAL REPORT Chest, 1 view Clinical history: post left thoracentesispt is in US room 1 Comparison: 07/01/2017 Discussion: Status post left thoracentesis without significant residual pleural effusion. No pneumothorax is seen. There is bibasilar atelectasis. The cardiac silhouette is enlarged. The support hardware appears in appropriate positions. No acute osseous abnormality. Signed: Braxton Johnson MDReport Verified Date/Time: 07/02/2017 12:11:15 Reading Location: [facility] B1 C013X Ortho Consult Reading Room U/S, [id number] 12:10:00Laterality?-> LeftReason for exam:->LEFT PLEURAL EFFUISONFINAL REPORT Ultrasound guided left thoracentesis: Pre/post procedure diagnosis: Pleural effusion Approach: Left Posterior Lateral Intercostal Sedation: None Local Anesthesia: 1% Xylocaine Findings: The risks, benefits, and alternatives of the procedure were explained. Questions were answered, and informed, written consent was then obtained. After an appropriate site for drainage was found, the skin was prepped and draped, and local anesthesia was given. A 5 F multipurpose catheter was inserted into the left pleural space, and approximately 800 cc of clear yellow pleural fluid was aspirated. Specimen were collected for the lab. No immediate complications were noted. A post-procedure chest radiograph is pending. Estimated blood loss: None. Impression: Uncomplicated ultrasound-guided left thoracentesis Signed: Braxton Johnson MDReport Verified Date/Time: 07/02/2017 12:10:10 Reading Location: [facility] C013X Ortho Consult Reading Room /APTT 2017-07-02 08:13:00* Test Item Value Reference Range Comments PROTIME (BEAKER) (test nmqo=921) 18.8 seconds 11.7-14.7 INR (BEAKER) (test vuay=001) 1.6 <=5.9 PARTIAL THROMBOPLASTIN TIME (BEAKER) (test eycr=616) 51.2 seconds 22.5-36.0 RECOMMENDED COUMADIN/WARFARIN INR THERAPY RANGESSTANDARD DOSE: 2.0 - 3.0 Inclu navid: PROPHYLAXIS for venous thrombosis, systemic embolization; TREATMENT for dayna ous thrombosis and/or pulmonary embolus.HIGH RISK: Target INR is 2.5-3.5 for pat ients with mechanical heart valves.[id number] 06:28:00* Test Item Value Reference Range Comments MAGNESIUM (BEAKER) (test herd=519) 2.3 mg/dL 1.6-2.6 BASIC METABOLIC [id number] 06:28:00* Test Item Value Reference Range Comments SODIUM (BEAKER) (test ndqj=630) 139 meq/L 136-145 POTASSIUM (BEAKER) (test mnva=950) 4.2 meq/L 3.5-5.1 CHLORIDE (BEAKER) (test hitb=188) 104 meq/L 98-107 CO2 (BEAKER) (test esbp=145) 18 meq/L 22-29 BLOOD UREA NITROGEN (BEAKER) (test xrxr=649) 60 mg/dL 7-21 CREATININE (BEAKER) (test kyha=408) 2.02 mg/dL 0.57-1.25 GLUCOSE RANDOM (BEAKER) (test dhur=573) 67 mg/dL 70-105 CALCIUM (BEAKER) (test slma=330) 9.4 mg/dL 8.4-10.2 EGFR (BEAKER) (test tsrh=8213) 32 mL/min/1.73 sq m ESTIMATED GFR IS NOT ACCURATE CREATININE CLEARANCE IN PREDICTING GLOMERULAR FILTRATION RATE. ESTIMATED GFR IS NOT APPLICABLE FOR DIALYSIS PATIENTS. Specimen slightly ictericCBC W/PLT COUNT & AUTO [id number] 06:02:00 * Test Item Value Reference Range Comments WHITE BLOOD CELL COUNT (BEAKER) (test glua=756) 10.2 K/ L 3.5-10.5 RED BLOOD CELL COUNT (BEAKER) (test jdzt=973) 4.98 M/ L 4.63-6.08 HEMOGLOBIN (BEAKER) (test ibvt=994) 13.2 GM/DL 13.7-17.5 HEMATOCRIT (BEAKER) (test cvuj=979) 40.9 % 40.1-51.0 MEAN CORPUSCULAR VOLUME (BEAKER) (test bere=902) 82.1 fL 79.0-92.2 MEAN CORPUSCULAR HEMOGLOBIN (BEAKER) (test gpxq=240) 26.5 pg 25.7-32.2 MEAN CORPUSCULAR HEMOGLOBIN CONC (BEAKER) (test maul=173) 32.3 GM/DL 32.3-36.5 RED CELL DISTRIBUTION WIDTH (BEAKER) (test siqk=296) 22.4 % 11.6-14.4 PLATELET COUNT (BEAKER) (test valp=508) 296 K/CU MM 150-450 MEAN PLATELET VOLUME (BEAKER) (test fbcb=041) 12.7 fL 9.4-12.4 NUCLEATED RED BLOOD CELLS (BEAKER) (test kylf=911) 0 /100 WBC 0-0 NEUTROPHILS RELATIVE PERCENT (BEAKER) (test vxdr=571) 74 % LYMPHOCYTES RELATIVE PERCENT (BEAKER) (test pamf=629) 17 % MONOCYTES RELATIVE PERCENT (BEAKER) (test mczm=820) 8 % EOSINOPHILS RELATIVE PERCENT (BEAKER) (test yytm=567) 1 % BASOPHILS RELATIVE PERCENT (BEAKER) (test efek=339) 1 % NEUTROPHILS ABSOLUTE COUNT (BEAKER) (test pxhf=197) 7.54 K/ L 1.78-5.38 LYMPHOCYTES ABSOLUTE COUNT (BEAKER) (test azjr=424) 1.69 K/ L 1.32-3.57 MONOCYTES ABSOLUTE COUNT (BEAKER) (test vjqd=351) 0.85 K/ L 0.30-0.82 EOSINOPHILS ABSOLUTE COUNT (BEAKER) (test xpen=307) 0.05 K/ L 0.04-0.54 BASOPHILS ABSOLUTE COUNT (BEAKER) (test zofj=955) 0.08 K/ L 0.01-0.08 IMMATURE GRANULOCYTES-RELATIVE PERCENT (BEAKER) (test yvsf=8514) 0 % 0-1 RAD, CHEST, 1 VIEW, NON [id number] 09:21:00Reason for exam:->sobShould this be performed at the bedside?->YesFINAL REPORT Chest, 1 view Clinical history: sob Comparison: 06/27/2017 Discussion: The support hardware appears in appropriate positions. There is no pneumothorax. There is a persistent left pleural effusion with left retrocardiac opacification. Probable small right pleural effusion. The cardiac silhouette is enlarged with mild pulmonary vascular congestion centrally. No acute osseous abnormality. Signed: Braxton Johnson MDReport Verified Date/Time: 07/01/2017 09:21:31 Reading Location: [address] Ortho Consult Reading Room W/PLT COUNT & AUTO [id number] 07:55:00* Test Item Value Reference Range Comments WHITE BLOOD CELL COUNT (BEAKER) (test fahd=703) 11.1 K/ L 3.5-10.5 RED BLOOD CELL COUNT (BEAKER) (test urqq=466) 4.99 M/ L 4.63-6.08 HEMOGLOBIN (BEAKER) (test knjc=708) 13.2 GM/DL 13.7-17.5 HEMATOCRIT (BEAKER) (test syyj=525) 40.7 % 40.1-51.0 MEAN CORPUSCULAR VOLUME (BEAKER) (test orkd=261) 81.6 fL 79.0-92.2 MEAN CORPUSCULAR HEMOGLOBIN (BEAKER) (test endb=063) 26.5 pg 25.7-32.2 MEAN CORPUSCULAR HEMOGLOBIN CONC (BEAKER) (test vokk=474) 32.4 GM/DL 32.3-36.5 RED CELL DISTRIBUTION WIDTH (BEAKER) (test cadm=756) 22.1 % 11.6-14.4 PLATELET COUNT (BEAKER) (test zdwh=728) 299 K/CU MM 150-450 MEAN PLATELET VOLUME (BEAKER) (test nnrp=712) 13.1 fL 9.4-12.4 NUCLEATED RED BLOOD CELLS (BEAKER) (test ebnu=551) 0 /100 WBC 0-0 NEUTROPHILS RELATIVE PERCENT (BEAKER) (test flxv=674) 79 % LYMPHOCYTES RELATIVE PERCENT (BEAKER) (test suqu=195) 12 % MONOCYTES RELATIVE PERCENT (BEAKER) (test mmjj=230) 8 % EOSINOPHILS RELATIVE PERCENT (BEAKER) (test uwon=927) 0 % BASOPHILS RELATIVE PERCENT (BEAKER) (test kckz=277) 0 % NEUTROPHILS ABSOLUTE COUNT (BEAKER) (test ywzz=818) 8.84 K/ L 1.78-5.38 LYMPHOCYTES ABSOLUTE COUNT (BEAKER) (test vweb=550) 1.33 K/ L 1.32-3.57 MONOCYTES ABSOLUTE COUNT (BEAKER) (test wrxd=538) 0.85 K/ L 0.30-0.82 EOSINOPHILS ABSOLUTE COUNT (BEAKER) (test opjn=490) 0.03 K/ L 0.04-0.54 BASOPHILS ABSOLUTE COUNT (BEAKER) (test qcuc=527) 0.05 K/ L 0.01-0.08 IMMATURE GRANULOCYTES-RELATIVE PERCENT (BEAKER) (test wvik=7163) 0 % 0-1 [id number] 07:36:00* Test Item Value Reference Range Comments MAGNESIUM (BEAKER) (test inbi=618) 2.0 mg/dL 1.6-2.6 BASIC METABOLIC [id number] 07:36:00* Test Item Value Reference Range Comments SODIUM (BEAKER) (test ryrr=784) 142 meq/L 136-145 POTASSIUM (BEAKER) (test ynuu=102) 4.2 meq/L 3.5-5.1 CHLORIDE (BEAKER) (test iwvz=517) 105 meq/L 98-107 CO2 (BEAKER) (test zolu=366) 20 meq/L 22-29 BLOOD UREA NITROGEN (BEAKER) (test jlnl=203) 53 mg/dL 7-21 CREATININE (BEAKER) (test ikbl=016) 1.77 mg/dL 0.57-1.25 GLUCOSE RANDOM (BEAKER) (test jrlz=641) 55 mg/dL 70-105 CALCIUM (BEAKER) (test wrbv=953) 9.5 mg/dL 8.4-10.2 EGFR (BEAKER) (test jpdg=1590) 37 mL/min/1.73 sq m ESTIMATED GFR IS NOT ACCURATE CREATININE CLEARANCE IN PREDICTING GLOMERULAR FILTRATION RATE. ESTIMATED GFR IS NOT APPLICABLE FOR DIALYSIS PATIENTS. [id number] 05:56:00* Test Item Value Reference Range Comments MAGNESIUM (BEAKER) (test pjtt=620) 2.1 mg/dL 1.6-2.6 BASIC METABOLIC [id number] 05:56:00* Test Item Value Reference Range Comments SODIUM (BEAKER) (test rqdz=960) 141 meq/L 136-145 POTASSIUM (BEAKER) (test daer=093) 4.1 meq/L 3.5-5.1 CHLORIDE (BEAKER) (test ltyx=395) 105 meq/L 98-107 CO2 (BEAKER) (test foev=174) 22 meq/L 22-29 BLOOD UREA NITROGEN (BEAKER) (test zldo=586) 51 mg/dL 7-21 CREATININE (BEAKER) (test jczs=479) 1.62 mg/dL 0.57-1.25 GLUCOSE RANDOM (BEAKER) (test uhvs=676) 91 mg/dL 70-105 CALCIUM (BEAKER) (test rqgl=947) 9.4 mg/dL 8.4-10.2 EGFR (BEAKER) (test sidf=8678) 41 mL/min/1.73 sq m ESTIMATED GFR IS NOT ACCURATE CREATININE CLEARANCE IN PREDICTING GLOMERULAR FILTRATION RATE. ESTIMATED GFR IS NOT APPLICABLE FOR DIALYSIS PATIENTS. CBC W/PLT COUNT & AUTO [id number] 05:36:00* Test Item Value Reference Range Comments WHITE BLOOD CELL COUNT (BEAKER) (test rdqh=415) 8.4 K/ L 3.5-10.5 RED BLOOD CELL COUNT (BEAKER) (test ltog=127) 4.90 M/ L 4.63-6.08 HEMOGLOBIN (BEAKER) (test obzx=025) 13.1 GM/DL 13.7-17.5 HEMATOCRIT (BEAKER) (test pyed=712) 40.2 % 40.1-51.0 MEAN CORPUSCULAR VOLUME (BEAKER) (test ejka=187) 82.0 fL 79.0-92.2 MEAN CORPUSCULAR HEMOGLOBIN (BEAKER) (test mdum=790) 26.7 pg 25.7-32.2 MEAN CORPUSCULAR HEMOGLOBIN CONC (BEAKER) (test skto=887) 32.6 GM/DL 32.3-36.5 RED CELL DISTRIBUTION WIDTH (BEAKER) (test oihh=567) 22.0 % 11.6-14.4 PLATELET COUNT (BEAKER) (test dyht=671) 274 K/CU MM 150-450 MEAN PLATELET VOLUME (BEAKER) (test orrf=409) 12.7 fL 9.4-12.4 NUCLEATED RED BLOOD CELLS (BEAKER) (test pmgd=338) 0 /100 WBC 0-0 NEUTROPHILS RELATIVE PERCENT (BEAKER) (test wqle=810) 68 % LYMPHOCYTES RELATIVE PERCENT (BEAKER) (test rbto=326) 21 % MONOCYTES RELATIVE PERCENT (BEAKER) (test owjv=852) 9 % EOSINOPHILS RELATIVE PERCENT (BEAKER) (test qzoo=702) 1 % BASOPHILS RELATIVE PERCENT (BEAKER) (test onyq=284) 1 % NEUTROPHILS ABSOLUTE COUNT (BEAKER) (test osxd=914) 5.68 K/ L 1.78-5.38 LYMPHOCYTES ABSOLUTE COUNT (BEAKER) (test hxcb=009) 1.76 K/ L 1.32-3.57 MONOCYTES ABSOLUTE COUNT (BEAKER) (test vtkn=637) 0.71 K/ L 0.30-0.82 EOSINOPHILS ABSOLUTE COUNT (BEAKER) (test jpqz=065) 0.11 K/ L 0.04-0.54 BASOPHILS ABSOLUTE COUNT (BEAKER) (test rnph=639) 0.09 K/ L 0.01-0.08 IMMATURE GRANULOCYTES-RELATIVE PERCENT (BEAKER) (test pcfz=5025) 0 % 0-1 BASIC METABOLIC [id number] 15:46:00* Test Item Value Reference Range Comments SODIUM (BEAKER) (test nnqx=803) 142 meq/L 136-145 POTASSIUM (BEAKER) (test ftzw=355) 4.2 meq/L 3.5-5.1 CHLORIDE (BEAKER) (test vydj=903) 106 meq/L 98-107 CO2 (BEAKER) (test gzbh=808) 22 meq/L 22-29 BLOOD UREA NITROGEN (BEAKER) (test skto=640) 52 mg/dL 7-21 CREATININE (BEAKER) (test nwne=445) 1.48 mg/dL 0.57-1.25 GLUCOSE RANDOM (BEAKER) (test kykm=961) 106 mg/dL 70-105 CALCIUM (BEAKER) (test lctg=710) 9.3 mg/dL 8.4-10.2 EGFR (BEAKER) (test vwtg=1593) 46 mL/min/1.73 sq m ESTIMATED GFR IS NOT ACCURATE CREATININE CLEARANCE IN PREDICTING GLOMERULAR FILTRATION RATE. ESTIMATED GFR IS NOT APPLICABLE FOR DIALYSIS PATIENTS. [id number] 05:31:00* Test Item Value Reference Range Comments MAGNESIUM (BEAKER) (test uwxw=547) 2.0 mg/dL 1.6-2.6 BASIC METABOLIC [id number] 05:31:00* Test Item Value Reference Range Comments SODIUM (BEAKER) (test kwxy=863) 142 meq/L 136-145 POTASSIUM (BEAKER) (test przq=349) 4.0 meq/L 3.5-5.1 CHLORIDE (BEAKER) (test vnlp=636) 107 meq/L 98-107 CO2 (BEAKER) (test qqwh=541) 22 meq/L 22-29 BLOOD UREA NITROGEN (BEAKER) (test rqdv=548) 52 mg/dL 7-21 CREATININE (BEAKER) (test mgpw=078) 1.48 mg/dL 0.57-1.25 GLUCOSE RANDOM (BEAKER) (test cyrk=984) 119 mg/dL 70-105 CALCIUM (BEAKER) (test vfoy=260) 9.1 mg/dL 8.4-10.2 EGFR (BEAKER) (test mswv=5269) 46 mL/min/1.73 sq m ESTIMATED GFR IS NOT ACCURATE CREATININE CLEARANCE IN PREDICTING GLOMERULAR FILTRATION RATE. ESTIMATED GFR IS NOT APPLICABLE FOR DIALYSIS PATIENTS. HEPATIC FUNCTION [id number] 05:31:00* Test Item Value Reference Range Comments TOTAL PROTEIN (BEAKER) (test hmbo=864) 6.5 gm/dL 6.0-8.3 ALBUMIN (BEAKER) (test lptk=4061) 3.2 g/dL 3.5-5.0 BILIRUBIN TOTAL (BEAKER) (test updq=090) 1.9 mg/dL 0.2-1.2 BILIRUBIN DIRECT (BEAKER) (test nkqd=237) 1.3 mg/dL 0.1-0.5 ALKALINE PHOSPHATASE (BEAKER) (test fhwo=532) 122 U/L 40-150 AST (SGOT) (BEAKER) (test vzdl=969) 41 U/L 5-34 ALT (SGPT) (BEAKER) (test kcyw=505) 35 U/L 6-55 CBC W/PLT COUNT & AUTO [id number] 05:04:00* Test Item Value Reference Range Comments WHITE BLOOD CELL COUNT (BEAKER) (test cqso=866) 7.9 K/ L 3.5-10.5 RED BLOOD CELL COUNT (BEAKER) (test dflt=517) 4.98 M/ L 4.63-6.08 HEMOGLOBIN (BEAKER) (test ozpn=929) 13.1 GM/DL 13.7-17.5 HEMATOCRIT (BEAKER) (test lqzl=372) 40.7 % 40.1-51.0 MEAN CORPUSCULAR VOLUME (BEAKER) (test kjoq=249) 81.7 fL 79.0-92.2 MEAN CORPUSCULAR HEMOGLOBIN (BEAKER) (test gabz=006) 26.3 pg 25.7-32.2 MEAN CORPUSCULAR HEMOGLOBIN CONC (BEAKER) (test aqsb=512) 32.2 GM/DL 32.3-36.5 RED CELL DISTRIBUTION WIDTH (BEAKER) (test orhl=631) 21.3 % 11.6-14.4 PLATELET COUNT (BEAKER) (test eafv=965) 264 K/CU MM 150-450 MEAN PLATELET VOLUME (BEAKER) (test qsge=118) 12.2 fL 9.4-12.4 NUCLEATED RED BLOOD CELLS (BEAKER) (test jagc=207) 0 /100 WBC 0-0 NEUTROPHILS RELATIVE PERCENT (BEAKER) (test tqky=652) 60 % LYMPHOCYTES RELATIVE PERCENT (BEAKER) (test ftnw=953) 26 % MONOCYTES RELATIVE PERCENT (BEAKER) (test hpak=465) 10 % EOSINOPHILS RELATIVE PERCENT (BEAKER) (test ptcg=576) 2 % BASOPHILS RELATIVE PERCENT (BEAKER) (test cfzj=259) 2 % NEUTROPHILS ABSOLUTE COUNT (BEAKER) (test pqwp=841) 4.79 K/ L 1.78-5.38 LYMPHOCYTES ABSOLUTE COUNT (BEAKER) (test mmpr=298) 2.09 K/ L 1.32-3.57 MONOCYTES ABSOLUTE COUNT (BEAKER) (test wunz=493) 0.77 K/ L 0.30-0.82 EOSINOPHILS ABSOLUTE COUNT (BEAKER) (test ndtd=900) 0.14 K/ L 0.04-0.54 BASOPHILS ABSOLUTE COUNT (BEAKER) (test ijjn=913) 0.13 K/ L 0.01-0.08 IMMATURE GRANULOCYTES-RELATIVE PERCENT (BEAKER) (test amec=2181) 0 % 0-1 RESPIRATORY PANEL [id number] 19:12:00* Test Item Value Reference Range Comments HUMAN METAPNEUMOVIRUS (BEAKER) (test oowu=2889) Not detected Not detected, Inconclusive RHINOVIRUS (BEAKER) (test ahtf=9345) Not detected Not detected, Inconclusive INFLUENZA A (BEAKER) (test tust=8279) Not detected Not detected, Inconclusive INFLUENZA A SUBTYPE H1 (BEAKER) (test yasr=2258) Not detected Not detected, Inconclusive INFLUENZA A SUBTYPE H3 (BEAKER) (test zarb=5326) Not detected Not detected, Inconclusive INFLUENZA A SUBTYPE H1-2009 (BEAKER) (test slvj=6026) Not detected Not detected, Inconclusive INFLUENZA B (BEAKER) (test pxuj=9258) Not detected Not detected, Inconclusive RESPIRATORY SYNCYTIAL VIRUS (BEAKER) (test uhfl=9882) Not detected Not detected, Inconclusive PARAINFLUENZA VIRUS 1 (BEAKER) (test akkq=9048) Not detected Not detected, Inconclusive PARAINFLUENZA VIRUS 2 (BEAKER) (test trie=6584) Not detected Not detected, Inconclusive PARAINFLUENZA VIRUS 3 (BEAKER) (test tiwd=2372) Not detected Not detected, Inconclusive PARAINFLUENZA VIRUS 4 (BEAKER) (test njsk=4021) Not detected Not detected, Inconclusive ADENOVIRUS (BEAKER) (test fjfn=1706) Not detected Not detected, Inconclusive CORONAVIRUS 229E (BEAKER) (test ejki=3982) Not detected Not detected, Inconclusive CORONAVIRUS HKU1 (BEAKER) (test kdon=3598) Not detected Not detected, Inconclusive CORONAVIRUS NL63 (BEAKER) (test zfpx=2937) Not detected Not detected, Inconclusive CORONAVIRUS OC43 (BEAKER) (test sxtv=6110) Not detected Not detected, Inconclusive BORDETELLA PERTUSSIS (BEAKER) (test fxov=5848) Not detected Not detected, Inconclusive CHLAMYDOPHILA PNEUMONIAE (BEAKER) (test xwjp=7908) Not detected Not detected, Inconclusive MYCOPLASMA PNEUMONIAE (BEAKER) (test bfrv=3087) Not detected Not detected, Inconclusive RAPID INFLUENZA A&B [id number] 14:37:00* Test Item Value Reference Range Comments RAPID INFLUENZA A AG (BEAKER) (test uewl=2539) Negative Negative, Inconclusive RAPID INFLUENZA B AG (BEAKER) (test rdmw=0095) Negative Negative, Inconclusive TROPONIN [id number] 12:04:00* Test Item Value Reference Range Comments TROPONIN I (BEAKER) (test danz=437) 0.19 ng/mL 0.00-0.03 Troponin I (TnI) levels must be interpreted in the context of the presenting sym ptoms and the clinical findings. Elevated TnI levels indicate myocardial damage, but are not specific for ischemic heart disease. Elevated TnI levels are seen in patients with other cardiac conditions (including myocarditis and congestive h eart failure), and slight TnI elevations occur in patients with other conditions , including sepsis, renal failure, acidosis, acute neurological disease, and per sistent tachyarrhythmia.CREATINE KINASE (CK), TOTAL AND [id number] 11:58:00* Test Item Value Reference Range Comments CREATINE KINASE TOTAL (BEAKER) (test gmqr=912) 76 U/L 29-200 CREATINE KINASE-MB (BEAKER) (test ypcp=199) 3.5 ng/mL 0.0-6.6 CREATINE KINASE-MB INDEX (BEAKER) (test xcyv=194) 4.6 % CK-MB Reference Range:<6.7 Normal6.7-10.0 Borderline>10.0 Abnormal TROPONIN [id number] 04:42:00* Test Item Value Reference Range Comments TROPONIN I (BEAKER) (test ytuc=824) 0.16 ng/mL 0.00-0.03 Troponin I (TnI) levels must be interpreted in the context of the presenting sym ptoms and the clinical findings. Elevated TnI levels indicate myocardial damage, but are not specific for ischemic heart disease. Elevated TnI levels are seen in patients with other cardiac conditions (including myocarditis and congestive h eart failure), and slight TnI elevations occur in patients with other conditions , including sepsis, renal failure, acidosis, acute neurological disease, and per sistent tachyarrhythmia.CREATINE KINASE (CK), TOTAL AND [id number] 04:35:00* Test Item Value Reference Range Comments CREATINE KINASE TOTAL (BEAKER) (test wllj=537) 72 U/L 29-200 CREATINE KINASE-MB (BEAKER) (test cavf=640) 3.3 ng/mL 0.0-6.6 CREATINE KINASE-MB INDEX (BEAKER) (test qays=708) 4.6 % CK-MB Reference Range:<6.7 Normal6.7-10.0 Borderline>10.0 Abnormal [id number] 04:15:00* Test Item Value Reference Range Comments MAGNESIUM (BEAKER) (test mcgb=580) 2.2 mg/dL 1.6-2.6 BASIC METABOLIC [id number] 04:15:00* Test Item Value Reference Range Comments SODIUM (BEAKER) (test myuf=067) 142 meq/L 136-145 POTASSIUM (BEAKER) (test jopa=666) 4.0 meq/L 3.5-5.1 CHLORIDE (BEAKER) (test xxys=860) 106 meq/L 98-107 CO2 (BEAKER) (test mojy=728) 24 meq/L 22-29 BLOOD UREA NITROGEN (BEAKER) (test mstv=081) 51 mg/dL 7-21 CREATININE (BEAKER) (test fflg=587) 1.45 mg/dL 0.57-1.25 GLUCOSE RANDOM (BEAKER) (test wxji=895) 106 mg/dL 70-105 CALCIUM (BEAKER) (test tvlo=259) 9.0 mg/dL 8.4-10.2 EGFR (BEAKER) (test tbkg=1905) 47 mL/min/1.73 sq m ESTIMATED GFR IS NOT ACCURATE CREATININE CLEARANCE IN PREDICTING GLOMERULAR FILTRATION RATE. ESTIMATED GFR IS NOT APPLICABLE FOR DIALYSIS PATIENTS. CBC W/PLT COUNT & AUTO [id number] 04:10:00* Test Item Value Reference Range Comments WHITE BLOOD CELL COUNT (BEAKER) (test wbsf=085) 8.5 K/ L 3.5-10.5 RED BLOOD CELL COUNT (BEAKER) (test wmpc=563) 4.87 M/ L 4.63-6.08 HEMOGLOBIN (BEAKER) (test jqxc=425) 12.9 GM/DL 13.7-17.5 HEMATOCRIT (BEAKER) (test opvz=402) 39.9 % 40.1-51.0 MEAN CORPUSCULAR VOLUME (BEAKER) (test makt=200) 81.9 fL 79.0-92.2 MEAN CORPUSCULAR HEMOGLOBIN (BEAKER) (test tszu=626) 26.5 pg 25.7-32.2 MEAN CORPUSCULAR HEMOGLOBIN CONC (BEAKER) (test dbyg=798) 32.3 GM/DL 32.3-36.5 RED CELL DISTRIBUTION WIDTH (BEAKER) (test tqvo=816) 21.2 % 11.6-14.4 PLATELET COUNT (BEAKER) (test bqbl=140) 249 K/CU MM 150-450 MEAN PLATELET VOLUME (BEAKER) (test cvbh=921) 12.0 fL 9.4-12.4 NUCLEATED RED BLOOD CELLS (BEAKER) (test tgdc=569) 0 /100 WBC 0-0 NEUTROPHILS RELATIVE PERCENT (BEAKER) (test oufq=935) 66 % LYMPHOCYTES RELATIVE PERCENT (BEAKER) (test pxqr=853) 21 % MONOCYTES RELATIVE PERCENT (BEAKER) (test wvyt=574) 9 % EOSINOPHILS RELATIVE PERCENT (BEAKER) (test lvnf=385) 3 % BASOPHILS RELATIVE PERCENT (BEAKER) (test wglf=225) 2 % NEUTROPHILS ABSOLUTE COUNT (BEAKER) (test rsze=886) 5.59 K/ L 1.78-5.38 LYMPHOCYTES ABSOLUTE COUNT (BEAKER) (test hijb=520) 1.78 K/ L 1.32-3.57 MONOCYTES ABSOLUTE COUNT (BEAKER) (test afbr=038) 0.80 K/ L 0.30-0.82 EOSINOPHILS ABSOLUTE COUNT (BEAKER) (test pkvt=655) 0.22 K/ L 0.04-0.54 BASOPHILS ABSOLUTE COUNT (BEAKER) (test mkyj=091) 0.13 K/ L 0.01-0.08 IMMATURE GRANULOCYTES-RELATIVE PERCENT (BEAKER) (test zbiq=8445) 0 % 0-1 PROTHROMBIN TIME/[id number] 03:58:00* Test Item Value Reference Range Comments PROTIME (BESATISH) (test tnsx=725) 15.6 seconds 11.7-14.7 INR (BEAKER) (test zxgo=277) 1.3 <=5.9 RECOMMENDED COUMADIN/WARFARIN INR THERAPY RANGESSTANDARD DOSE: 2.0 - 3.0 Inclu navid: PROPHYLAXIS for venous thrombosis, systemic embolization; TREATMENT for dayna ous thrombosis and/or pulmonary embolus.HIGH RISK: Target INR is 2.5-3.5 for pat ients with mechanical heart valves.CT, BRAIN, WITHOUT [id number] 19:46:00FINAL REPORT CT head without contrast 06/27/2017 7:45 PM CLINICAL HISTORY: Decreased alertness TECHNIQUE: Axial noncontrast CT images through the head were obtained. This examination was performed according to our departmental dose optimization program, which includes automated exposure control, adjustment of the mA and/or kV according to patient size, and/or use of iterated reconstruction technique. COMPARISON: 06/08/2017 FINDINGS: There is no hemorrhage, extra-axial collection, mass, hydrocephalus, or midline shift. There is mild microvascular ischemia in the supratentorial white matter and dorcas. There is atherosclerotic calcification of the intracranial arterial vasculature. There is generalized parenchymal volume loss. There is left maxillary sinusitis. The remaining visualized paranasal sinuses and mastoid air cells are well aerated. The skull is intact. IMPRESSION: No intracranial hemorrhage or mass effect. Chronic appearing microvascular and involutional changes. Sinusitis. If concern for acute pathology persists, further evaluation with MRI is recommended. Signed: Leonora Kincaid Verified Date/Time: 06/27/2017 19:46:43 Reading Location: [facility] Radiology Reading Room , CHEST, 1 VIEW, NON [id number] 17:49:00Reason for exam:->GENERALIZED WEAKNESS, NOT ASSOCIATED WITH EXTREMITIESReason for exam:->DIZZINESSReason for exam:->RASHShould this be performed at the bedside?->YesFINAL REPORT HISTORY : GENERALIZED WEAKNESS, NOT ASSOCIATED WITH EXTREMITIESDIZZINESSRASH. Comparison: 06/13/2017 Comment: Single portable view of the chest was obtained. The cardiac silhouette size is enlarged. There is dextroscoliosis of the thoracic spine. The patient is status post sternotomy. Support lines and tubes and hardware are in stable position. No pneumothorax is seen. There is a small left-sided pleural effusion with some left basilar/ret rocardiac airspace disease and consolidation. Signed: Daily Bond Veri fied Date/Time: 06/27/2017 17:49:07 Reading Location: [facility] [id number] Consult Read ing Room P M TROPONIN [id number] 17:34:00* Test Item Value Reference Range Comments TROPONIN I (BEAKER) (test agmn=082) 0.27 ng/mL 0.00-0.03 Troponin I (TnI) levels must be interpreted in the context of the presenting sym ptoms and the clinical findings. Elevated TnI levels indicate myocardial damage, but are not specific for ischemic heart disease. Elevated TnI levels are seen in patients with other cardiac conditions (including myocarditis and congestive h eart failure), and slight TnI elevations occur in patients with other conditions , including sepsis, renal failure, acidosis, acute neurological disease, and per sistent tachyarrhythmia.B-TYPE NATRIURETIC FACTOR (BNP)2017-06-27 17:33:00* Test Item Value Reference Range Comments B-TYPE NATRIURETIC PEPTIDE (BEAKER) (test ibzx=146) 8832 pg/mL 0-100 CREATINE KINASE (CK), TOTAL AND [id number] 17:23:00* Test Item Value Reference Range Comments CREATINE KINASE TOTAL (BEAKER) (test watt=645) 88 U/L 29-200 CREATINE KINASE-MB (BEAKER) (test qqmz=360) 3.8 ng/mL 0.0-6.6 CREATINE KINASE-MB INDEX (BEAKER) (test scdn=999) 4.3 % CK-MB Reference Range:<6.7 Normal6.7-10.0 Borderline>10.0 AbnormalCBC W/PLT COUNT & AUTO [id number] 17:01:00* Test Item Value Reference Range Comments WHITE BLOOD CELL COUNT (BEAKER) (test fivs=636) 9.2 K/ L 3.5-10.5 RED BLOOD CELL COUNT (BEAKER) (test sdha=230) 5.11 M/ L 4.63-6.08 HEMOGLOBIN (BEAKER) (test wbxk=960) 13.4 GM/DL 13.7-17.5 HEMATOCRIT (BEAKER) (test qitx=934) 42.1 % 40.1-51.0 MEAN CORPUSCULAR VOLUME (BEAKER) (test xsjc=960) 82.4 fL 79.0-92.2 MEAN CORPUSCULAR HEMOGLOBIN (BEAKER) (test nfxh=705) 26.2 pg 25.7-32.2 MEAN CORPUSCULAR HEMOGLOBIN CONC (BEAKER) (test zzdn=299) 31.8 GM/DL 32.3-36.5 RED CELL DISTRIBUTION WIDTH (BEAKER) (test ftys=571) 21.2 % 11.6-14.4 PLATELET COUNT (BEAKER) (test qboy=458) 251 K/CU MM 150-450 MEAN PLATELET VOLUME (BEAKER) (test qmpk=182) 12.8 fL 9.4-12.4 NUCLEATED RED BLOOD CELLS (BEAKER) (test vzfa=068) 0 /100 WBC 0-0 NEUTROPHILS RELATIVE PERCENT (BEAKER) (test qtty=575) 73 % LYMPHOCYTES RELATIVE PERCENT (BEAKER) (test wefb=535) 17 % MONOCYTES RELATIVE PERCENT (BEAKER) (test shuz=160) 8 % EOSINOPHILS RELATIVE PERCENT (BEAKER) (test kpdu=098) 2 % BASOPHILS RELATIVE PERCENT (BEAKER) (test kptc=747) 1 % NEUTROPHILS ABSOLUTE COUNT (BEAKER) (test ydwr=911) 6.68 K/ L 1.78-5.38 LYMPHOCYTES ABSOLUTE COUNT (BEAKER) (test bwjl=927) 1.56 K/ L 1.32-3.57 MONOCYTES ABSOLUTE COUNT (BEAKER) (test kcki=752) 0.69 K/ L 0.30-0.82 EOSINOPHILS ABSOLUTE COUNT (BEAKER) (test qljm=679) 0.14 K/ L 0.04-0.54 BASOPHILS ABSOLUTE COUNT (BEAKER) (test amsr=391) 0.12 K/ L 0.01-0.08 IMMATURE GRANULOCYTES-RELATIVE PERCENT (BEAKER) (test fozb=7048) 0 % 0-1 [id number] 17:00:00* Test Item Value Reference Range Comments MAGNESIUM (BEAKER) (test yjac=329) 2.1 mg/dL 1.6-2.6 COMPREHENSIVE METABOLIC [id number] 17:00:00* Test Item Value Reference Range Comments TOTAL PROTEIN (BEAKER) (test yxub=939) 6.9 gm/dL 6.0-8.3 ALBUMIN (BEAKER) (test kyyh=8818) 3.3 g/dL 3.5-5.0 ALKALINE PHOSPHATASE (BEAKER) (test wbht=094) 133 U/L 40-150 BILIRUBIN TOTAL (BEAKER) (test tsrw=679) 2.4 mg/dL 0.2-1.2 SODIUM (BEAKER) (test prle=133) 143 meq/L 136-145 POTASSIUM (BEAKER) (test czuu=787) 4.0 meq/L 3.5-5.1 CHLORIDE (BEAKER) (test ttdz=474) 106 meq/L 98-107 CO2 (BEAKER) (test uopo=337) 25 meq/L 22-29 BLOOD UREA NITROGEN (BEAKER) (test ejul=215) 53 mg/dL 7-21 CREATININE (BEAKER) (test owgm=848) 1.45 mg/dL 0.57-1.25 GLUCOSE RANDOM (BEAKER) (test uzqt=598) 103 mg/dL 70-105 CALCIUM (BEAKER) (test jyjd=495) 9.5 mg/dL 8.4-10.2 AST (SGOT) (BEAKER) (test ifzj=409) 57 U/L 5-34 ALT (SGPT) (BEAKER) (test ycuh=952) 44 U/L 6-55 EGFR (BEAKER) (test gsxt=2330) 47 mL/min/1.73 sq m ESTIMATED GFR IS NOT ACCURATE CREATININE CLEARANCE IN PREDICTING GLOMERULAR FILTRATION RATE. ESTIMATED GFR IS NOT APPLICABLE FOR DIALYSIS PATIENTS. [id number] 16:49:00* Test Item Value Reference Range Comments PROTIME (BEAKER) (test tysj=549) 14.4 seconds 11.7-14.7 INR (BEAKER) (test eanq=230) 1.1 <=5.9 PARTIAL THROMBOPLASTIN TIME (BEAKER) (test teza=226) 32.0 seconds 22.5-36.0 RECOMMENDED COUMADIN/WARFARIN INR THERAPY RANGESSTANDARD DOSE: 2.0 - 3.0 Inclu navid: PROPHYLAXIS for venous thrombosis, systemic embolization; TREATMENT for dayna ous thrombosis and/or pulmonary embolus.HIGH RISK: Target INR is 2.5-3.5 for pat ients with mechanical heart valves.B-TYPE NATRIURETIC FACTOR (BNP)2017-06-22 14:21:00* Test Item Value Reference Range Comments B-TYPE NATRIURETIC PEPTIDE (BEAKER) (test akvx=560) 7916 pg/mL 0-100 BASIC METABOLIC [id number] 14:06:00* Test Item Value Reference Range Comments SODIUM (BEAKER) (test yjyk=866) 141 meq/L 136-145 POTASSIUM (BEAKER) (test wzmt=382) 4.1 meq/L 3.5-5.1 CHLORIDE (BEAKER) (test mmdo=818) 104 meq/L 98-107 CO2 (BEAKER) (test jlyc=269) 27 meq/L 22-29 BLOOD UREA NITROGEN (BEAKER) (test tzvp=436) 69 mg/dL 7-21 CREATININE (BEAKER) (test zsmd=098) 1.99 mg/dL 0.57-1.25 GLUCOSE RANDOM (BEAKER) (test qsnf=608) 131 mg/dL 70-105 CALCIUM (BEAKER) (test uuxd=874) 9.1 mg/dL 8.4-10.2 EGFR (BEAKER) (test ssxt=1928) 32 mL/min/1.73 sq m ESTIMATED GFR IS NOT ACCURATE CREATININE CLEARANCE IN PREDICTING GLOMERULAR FILTRATION RATE. ESTIMATED GFR IS NOT APPLICABLE FOR DIALYSIS PATIENTS. CBC W/PLT COUNT & AUTO [id number] 13:42:00* Test Item Value Reference Range Comments WHITE BLOOD CELL COUNT (BEAKER) (test gist=977) 9.9 K/ L 3.5-10.5 RED BLOOD CELL COUNT (BEAKER) (test evpf=246) 4.70 M/ L 4.63-6.08 HEMOGLOBIN (BEAKER) (test guem=860) 12.4 GM/DL 13.7-17.5 HEMATOCRIT (BEAKER) (test dfbp=430) 37.7 % 40.1-51.0 MEAN CORPUSCULAR VOLUME (BEAKER) (test fkob=347) 80.2 fL 79.0-92.2 MEAN CORPUSCULAR HEMOGLOBIN (BEAKER) (test tbgy=181) 26.4 pg 25.7-32.2 MEAN CORPUSCULAR HEMOGLOBIN CONC (BEAKER) (test qahb=270) 32.9 GM/DL 32.3-36.5 RED CELL DISTRIBUTION WIDTH (BEAKER) (test msqu=885) 20.0 % 11.6-14.4 PLATELET COUNT (BEAKER) (test bcut=484) 181 K/CU MM 150-450 MEAN PLATELET VOLUME (BEAKER) (test uylh=500) 11.8 fL 9.4-12.4 NUCLEATED RED BLOOD CELLS (BEAKER) (test zfic=065) 0 /100 WBC 0-0 NEUTROPHILS RELATIVE PERCENT (BEAKER) (test sbfn=052) 76 % LYMPHOCYTES RELATIVE PERCENT (BEAKER) (test qxji=716) 15 % MONOCYTES RELATIVE PERCENT (BEAKER) (test jfjz=385) 7 % EOSINOPHILS RELATIVE PERCENT (BEAKER) (test ousd=452) 1 % BASOPHILS RELATIVE PERCENT (BEAKER) (test forj=561) 1 % NEUTROPHILS ABSOLUTE COUNT (BEAKER) (test gqmi=311) 7.52 K/ L 1.78-5.38 LYMPHOCYTES ABSOLUTE COUNT (BEAKER) (test euej=917) 1.48 K/ L 1.32-3.57 MONOCYTES ABSOLUTE COUNT (BEAKER) (test bnje=346) 0.71 K/ L 0.30-0.82 EOSINOPHILS ABSOLUTE COUNT (BEAKER) (test njvk=549) 0.06 K/ L 0.04-0.54 BASOPHILS ABSOLUTE COUNT (BEAKER) (test riqe=951) 0.06 K/ L 0.01-0.08 IMMATURE GRANULOCYTES-RELATIVE PERCENT (BEAKER) (test ujfc=7490) 0 % 0-1 SPUTUM CULTURE + GRAM [id number] 18:55:00* Test Item Value Reference Range Comments CULTURE (BEAKER) (test shbw=7513) 4+ Normal respiratory abdiel present GRAM STAIN RESULT (BEAKER) (test kmly=1040) 4+ WBCs GRAM STAIN RESULT (BEAKER) (test bejr=97553) 15-20 epithelial cells GRAM STAIN RESULT (BEAKER) (test hyky=91097) 2+ gram negative rods GRAM STAIN RESULT (BEAKER) (test gcsx=499683) 1+ gram positive rods GRAM STAIN RESULT (BEAKER) (test lsjc=892115) 4+ gram positive cocci in chains and pairs B-TYPE NATRIURETIC FACTOR (BNP)2017-06-13 14:03:00* Test Item Value Reference Range Comments B-TYPE NATRIURETIC PEPTIDE (BEAKER) (test bbmf=973) 5961 pg/mL 0-100 RAD, CHEST, 2 [id number] 14:00:00Reason for Exam:->Productive cough green sputum, H/O pneumoniaFINAL REPORT TECHNIQUE: Frontal and lateral chest radiographs dated 06/13/2017. CLINICAL HISTORY: Productive cough, green sputum COMPARISON STUDY: Chest radiograph dated 06/06/2017 FINDINGS: Left- sided defibrillator and right-sided PICC are unchanged. There are small bilateral pleural effusions with compressive atelectasis. No pneumothorax. Cardiomediastinal silhouette is normal in size. No pulmonary edema. Bones are osteopenic. No fracture. Midline sternotomy wires are intact and well aligned. IMPRESSION: Small bilateral pleural effusions with compressive atelectasis. Signed: Maria C Sprague Verified Date/Time: 06/13/2017 14:00:23 Reading Location: [facility] Radiology Reading Room [id number] 13:38:00* Test Item Value Reference Range Comments MAGNESIUM (BEAKER) (test ylzd=030) 2.2 mg/dL 1.6-2.6 COMPREHENSIVE METABOLIC [id number] 13:38:00* Test Item Value Reference Range Comments TOTAL PROTEIN (BEAKER) (test ydqd=595) 6.8 gm/dL 6.0-8.3 ALBUMIN (BEAKER) (test gazr=4887) 3.4 g/dL 3.5-5.0 ALKALINE PHOSPHATASE (BEAKER) (test nwii=079) 126 U/L 40-150 BILIRUBIN TOTAL (BEAKER) (test bjua=451) 2.0 mg/dL 0.2-1.2 SODIUM (BEAKER) (test pwmu=052) 139 meq/L 136-145 POTASSIUM (BEAKER) (test qsbs=452) 3.5 meq/L 3.5-5.1 CHLORIDE (BEAKER) (test imbs=214) 99 meq/L 98-107 CO2 (BEAKER) (test uqut=763) 32 meq/L 22-29 BLOOD UREA NITROGEN (BEAKER) (test nzuh=888) 33 mg/dL 7-21 CREATININE (BEAKER) (test zarx=607) 1.43 mg/dL 0.57-1.25 GLUCOSE RANDOM (BEAKER) (test tpxr=112) 146 mg/dL 70-105 CALCIUM (BEAKER) (test uhbp=749) 9.1 mg/dL 8.4-10.2 AST (SGOT) (BEAKER) (test wlul=062) 29 U/L 5-34 ALT (SGPT) (BEAKER) (test frev=769) 18 U/L 6-55 EGFR (BEAKER) (test izck=0499) 48 mL/min/1.73 sq m ESTIMATED GFR IS NOT ACCURATE CREATININE CLEARANCE IN PREDICTING GLOMERULAR FILTRATION RATE. ESTIMATED GFR IS NOT APPLICABLE FOR DIALYSIS PATIENTS. LIPID [id number] 13:38:00* Test Item Value Reference Range Comments TRIGLYCERIDES (BEAKER) (test flpi=000) 69 mg/dL CHOLESTEROL (BEAKER) (test nkzq=741) 91 mg/dL HDL CHOLESTEROL (BEAKER) (test kjvc=855) 42 mg/dL LDL CHOLESTEROL CALCULATED (BEAKER) (test tjzv=191) 35 mg/dL Triglyceride Reference Range: Low Risk <150 Borderline 150-199 High Risk 200-499 Very High Risk >=500Cholesterol Reference Range: Low Risk <200 Borderline 200-239 High Risk >240HDL Cholesterol Reference Range: Low Risk >=60 High Risk <40LDL Cholesterol Reference Range: Optimal <100 Near Optimal 100-129 Borderline 130-159 High 160-189 Very High >=190 CBC W/PLT COUNT & AUTO [id number] 12:51:00* Test Item Value Reference Range Comments WHITE BLOOD CELL COUNT (BEAKER) (test opyk=884) 7.9 K/ L 3.5-10.5 RED BLOOD CELL COUNT (BEAKER) (test klsq=345) 4.66 M/ L 4.63-6.08 HEMOGLOBIN (BEAKER) (test irib=351) 12.1 GM/DL 13.7-17.5 HEMATOCRIT (BEAKER) (test lrqi=321) 38.4 % 40.1-51.0 MEAN CORPUSCULAR VOLUME (BEAKER) (test lmch=285) 82.4 fL 79.0-92.2 MEAN CORPUSCULAR HEMOGLOBIN (BEAKER) (test msub=588) 26.0 pg 25.7-32.2 MEAN CORPUSCULAR HEMOGLOBIN CONC (BEAKER) (test dyjk=819) 31.5 GM/DL 32.3-36.5 RED CELL DISTRIBUTION WIDTH (BEAKER) (test ohya=060) 18.6 % 11.6-14.4 PLATELET COUNT (BEAKER) (test dyse=833) 188 K/CU MM 150-450 MEAN PLATELET VOLUME (BEAKER) (test dlfz=533) 12.1 fL 9.4-12.4 NUCLEATED RED BLOOD CELLS (BEAKER) (test rxwx=464) 0 /100 WBC 0-0 NEUTROPHILS RELATIVE PERCENT (BEAKER) (test znkg=321) 70 % LYMPHOCYTES RELATIVE PERCENT (BEAKER) (test ypex=125) 14 % MONOCYTES RELATIVE PERCENT (BEAKER) (test npas=733) 12 % EOSINOPHILS RELATIVE PERCENT (BEAKER) (test kupo=740) 3 % BASOPHILS RELATIVE PERCENT (BEAKER) (test shig=376) 1 % NEUTROPHILS ABSOLUTE COUNT (BEAKER) (test dujf=983) 5.57 K/ L 1.78-5.38 LYMPHOCYTES ABSOLUTE COUNT (BEAKER) (test inpt=310) 1.11 K/ L 1.32-3.57 MONOCYTES ABSOLUTE COUNT (BEAKER) (test udmg=139) 0.92 K/ L 0.30-0.82 EOSINOPHILS ABSOLUTE COUNT (BEAKER) (test asmx=502) 0.24 K/ L 0.04-0.54 BASOPHILS ABSOLUTE COUNT (BEAKER) (test vrrc=361) 0.06 K/ L 0.01-0.08 IMMATURE GRANULOCYTES-RELATIVE PERCENT (BEAKER) (test ugou=5552) 0 % 0-1 [id number] 05:25:00* Test Item Value Reference Range Comments MAGNESIUM (BEAKER) (test swkk=023) 2.2 mg/dL 1.6-2.6 BASIC METABOLIC [id number] 05:25:00* Test Item Value Reference Range Comments SODIUM (BEAKER) (test uncb=104) 139 meq/L 136-145 POTASSIUM (BEAKER) (test cyxk=105) 4.2 meq/L 3.5-5.1 CHLORIDE (BEAKER) (test shyj=466) 103 meq/L 98-107 CO2 (BEAKER) (test eyzh=009) 25 meq/L 22-29 BLOOD UREA NITROGEN (BEAKER) (test nbdg=965) 29 mg/dL 7-21 CREATININE (BEAKER) (test vabe=274) 1.24 mg/dL 0.57-1.25 GLUCOSE RANDOM (BEAKER) (test risi=470) 107 mg/dL 70-105 CALCIUM (BEAKER) (test fjxz=942) 9.4 mg/dL 8.4-10.2 EGFR (BEAKER) (test epvm=0540) 56 mL/min/1.73 sq m ESTIMATED GFR IS NOT ACCURATE CREATININE CLEARANCE IN PREDICTING GLOMERULAR FILTRATION RATE. ESTIMATED GFR IS NOT APPLICABLE FOR DIALYSIS PATIENTS. CBC W/PLT COUNT & AUTO [id number] 04:45:00* Test Item Value Reference Range Comments WHITE BLOOD CELL COUNT (BEAKER) (test ehqj=637) 10.4 K/ L 3.5-10.5 RED BLOOD CELL COUNT (BEAKER) (test krno=772) 4.62 M/ L 4.63-6.08 HEMOGLOBIN (BEAKER) (test joog=100) 12.3 GM/DL 13.7-17.5 HEMATOCRIT (BEAKER) (test elfp=977) 38.1 % 40.1-51.0 MEAN CORPUSCULAR VOLUME (BEAKER) (test btir=142) 82.5 fL 79.0-92.2 MEAN CORPUSCULAR HEMOGLOBIN (BEAKER) (test bdcd=144) 26.6 pg 25.7-32.2 MEAN CORPUSCULAR HEMOGLOBIN CONC (BEAKER) (test jpjr=287) 32.3 GM/DL 32.3-36.5 RED CELL DISTRIBUTION WIDTH (BEAKER) (test xymt=520) 18.7 % 11.6-14.4 PLATELET COUNT (BEAKER) (test ohqj=583) 151 K/CU MM 150-450 MEAN PLATELET VOLUME (BEAKER) (test fxpm=795) 12.2 fL 9.4-12.4 NUCLEATED RED BLOOD CELLS (BEAKER) (test aoql=554) 0 /100 WBC 0-0 NEUTROPHILS RELATIVE PERCENT (BEAKER) (test isem=435) 72 % LYMPHOCYTES RELATIVE PERCENT (BEAKER) (test ldxl=941) 13 % MONOCYTES RELATIVE PERCENT (BEAKER) (test sarf=359) 10 % EOSINOPHILS RELATIVE PERCENT (BEAKER) (test pina=378) 5 % BASOPHILS RELATIVE PERCENT (BEAKER) (test nzlm=916) 1 % NEUTROPHILS ABSOLUTE COUNT (BEAKER) (test ikcs=693) 7.47 K/ L 1.78-5.38 LYMPHOCYTES ABSOLUTE COUNT (BEAKER) (test emoq=575) 1.32 K/ L 1.32-3.57 MONOCYTES ABSOLUTE COUNT (BEAKER) (test xnvd=072) 0.99 K/ L 0.30-0.82 EOSINOPHILS ABSOLUTE COUNT (BEAKER) (test hpvs=720) 0.51 K/ L 0.04-0.54 BASOPHILS ABSOLUTE COUNT (BEAKER) (test yzja=844) 0.07 K/ L 0.01-0.08 IMMATURE GRANULOCYTES-RELATIVE PERCENT (BEAKER) (test ipcd=0030) 0 % 0-1 [id number] 06:17:00* Test Item Value Reference Range Comments MAGNESIUM (BEAKER) (test jljj=511) 2.2 mg/dL 1.6-2.6 BASIC METABOLIC [id number] 06:17:00* Test Item Value Reference Range Comments SODIUM (BEAKER) (test dkyw=586) 141 meq/L 136-145 POTASSIUM (BEAKER) (test gjrj=320) 3.8 meq/L 3.5-5.1 CHLORIDE (BEAKER) (test jlfd=383) 105 meq/L 98-107 CO2 (BEAKER) (test wsqq=426) 26 meq/L 22-29 BLOOD UREA NITROGEN (BEAKER) (test ednv=991) 34 mg/dL 7-21 CREATININE (BEAKER) (test yhpd=449) 1.20 mg/dL 0.57-1.25 GLUCOSE RANDOM (BEAKER) (test vsvw=290) 92 mg/dL 70-105 CALCIUM (BEAKER) (test xvst=533) 8.8 mg/dL 8.4-10.2 EGFR (BEAKER) (test cymx=9094) 58 mL/min/1.73 sq m ESTIMATED GFR IS NOT ACCURATE CREATININE CLEARANCE IN PREDICTING GLOMERULAR FILTRATION RATE. ESTIMATED GFR IS NOT APPLICABLE FOR DIALYSIS PATIENTS. CBC W/PLT COUNT & AUTO [id number] 06:09:00* Test Item Value Reference Range Comments WHITE BLOOD CELL COUNT (BEAKER) (test gnbl=508) 7.7 K/ L 3.5-10.5 RED BLOOD CELL COUNT (BEAKER) (test nefh=635) 4.45 M/ L 4.63-6.08 HEMOGLOBIN (BEAKER) (test vrmj=644) 11.9 GM/DL 13.7-17.5 HEMATOCRIT (BEAKER) (test eavd=989) 37.0 % 40.1-51.0 MEAN CORPUSCULAR VOLUME (BEAKER) (test wwvo=029) 83.1 fL 79.0-92.2 MEAN CORPUSCULAR HEMOGLOBIN (BEAKER) (test yhdb=674) 26.7 pg 25.7-32.2 MEAN CORPUSCULAR HEMOGLOBIN CONC (BEAKER) (test mrea=775) 32.2 GM/DL 32.3-36.5 RED CELL DISTRIBUTION WIDTH (BEAKER) (test xwel=896) 18.8 % 11.6-14.4 PLATELET COUNT (BEAKER) (test zumx=225) 136 K/CU MM 150-450 MEAN PLATELET VOLUME (BEAKER) (test yato=922) 12.1 fL 9.4-12.4 NUCLEATED RED BLOOD CELLS (BEAKER) (test lwyn=636) 0 /100 WBC 0-0 NEUTROPHILS RELATIVE PERCENT (BEAKER) (test gyho=849) 62 % LYMPHOCYTES RELATIVE PERCENT (BEAKER) (test lfzq=304) 20 % MONOCYTES RELATIVE PERCENT (BEAKER) (test wzxj=968) 11 % EOSINOPHILS RELATIVE PERCENT (BEAKER) (test ings=739) 6 % BASOPHILS RELATIVE PERCENT (BEAKER) (test qsjt=011) 1 % NEUTROPHILS ABSOLUTE COUNT (BEAKER) (test mvih=944) 4.79 K/ L 1.78-5.38 LYMPHOCYTES ABSOLUTE COUNT (BEAKER) (test cmam=620) 1.50 K/ L 1.32-3.57 MONOCYTES ABSOLUTE COUNT (BEAKER) (test wpwo=236) 0.84 K/ L 0.30-0.82 EOSINOPHILS ABSOLUTE COUNT (BEAKER) (test mjgu=387) 0.45 K/ L 0.04-0.54 BASOPHILS ABSOLUTE COUNT (BEAKER) (test pkvl=925) 0.08 K/ L 0.01-0.08 IMMATURE GRANULOCYTES-RELATIVE PERCENT (BEAKER) (test aecc=1545) 0 % 0-1 CT, CHEST, WITHOUT [id number] 02:53:00Reason for exam:->LVAD workupWhat is the patient's sedation requirement?->No SedationFINAL REPORT CT scan of the chest and abdomen: CLINICAL HISTORY: LVAD workup Comparison exam: Chest x-ray 06/06/2017 TECHNIQUE: CT scan of the chest and abdomen without intravenous or oral contrast. Dose modulation, iterative reconstruction, and/or weight based adjustment of the mA/kV was utilized to reduce the radiation dose to as low as reasonably achievable. FINDINGS: Lack of contrast limits evaluation of the bowel, abdominal and pelvic solid organs, and vasculature. Small bilateral pleural effusions. Left posterior basilar atele ctasis. Normal trachea and mainstem bronchi. Normal thyroid gland. Scattered ath erosclerotic aortic calcifications. Normal caliber aorta and central pulmonary a rteries. No mediastinal, hilar, or axillary lymphadenopathy. Right PICC line ter minates in the superior vena cava. Left subclavian approach biventricular ICD. C ardiomegaly. Atherosclerotic coronary artery calcification. No pericardial effus ion. Normal liver. Nodular irregular splenic contour, possibly the sequela of pr ior splenic infarcts. Normal pancreas. The gallbladder is either severely contra cted or absent. Colonic diverticulosis. No acute diverticulitis. No free intrape ritoneal air. No mesenteric or retroperitoneal lymphadenopathy. Advanced atheros clerotic aortic calcification. Normal adrenal glands. Left renal parenchymal sca rring. 12 mm left renal cyst. Small volume abdominal and pelvic free fluid. No a cute or significant skeletal abnormalities. Previous sternotomy. Mild bilateral gynecomastia. IMPRESSION: 1. Colonic diverticulosis. No acute diverticulitis. 2. Left renal parenchymal scarring. 3. Small volume abdominal and pelvic free flui d. Signed: Myke Gaona MDReport Verified Date/Time: 06/08/2017 02:53:04 Danny tolentino Location: [facility] C013X Ortho Consult Reading Room , ABDOMEN, WITHOUT CONTRAST 2017-06-08 02:52:00Reason for exam:->LVAD workupWhat is the patient's sedation requirement?->No SedationFINAL REPORT CT scan of the chest and abdomen: CLINICAL HISTORY: LVAD workup Comparison exam: Chest x-ray 06/06/2017 TECHNIQUE: CT scan of the chest and abdomen without intravenous or oral contrast. Dose modulation, iterative reconstruction, and/or weight based adjustment of the mA/kV was utilized to reduce the radiation dose to as low as reasonably achievable. FINDINGS: Lack of contrast limits evaluation of the bowel, abdominal and pelvic solid organs, and vasculature. Small bilateral pleural effusions. Left posterior basilar atelectasis. Normal trachea and mainstem bronchi. Normal thyroid gland. Scattered atherosclerotic aortic calcifications. Normal caliber aorta and central pulmonary arteries. No mediastinal, hilar, or axillary lymphadenopathy. Right PICC line terminates in the superior vena cava. Left subclavian approach biventricular ICD. C ardiomegaly. Atherosclerotic coronary artery calcification. No pericardial effus ion. Normal liver. Nodular irregular splenic contour, possibly the sequela of pr ior splenic infarcts. Normal pancreas. The gallbladder is either severely contra cted or absent. Colonic diverticulosis. No acute diverticulitis. No free intrape ritoneal air. No mesenteric or retroperitoneal lymphadenopathy. Advanced atheros clerotic aortic calcification. Normal adrenal glands. Left renal parenchymal sca rring. 12 mm left renal cyst. Small volume abdominal and pelvic free fluid. No a cute or significant skeletal abnormalities. Previous sternotomy. Mild bilateral gynecomastia. IMPRESSION: 1. Colonic diverticulosis. No acute diverticulitis. 2. Left renal parenchymal scarring. 3. Small volume abdominal and pelvic free flui d. Signed: Myke Gaona MDReport Verified Date/Time: 06/08/2017 02:52:23 Danny tolentino Location: [facility] B1 [id number] Ortho Consult Reading Room , BRAIN, WITHOUT CONTRAST 2017-06-08 02:34:00Reason for exam:->LVAD WorkupFINAL REPORT Clinical history : LVAD workupComparison study: CT scan of the brain 06/05/2017 Technique: Contiguous axial images were obtained of the brain without intravenous contrast. This exam was performed according to our departmental dose optimization program, which includes automated exposure control, adjustment of the mA and/or kV according to the patient's size and/or use of the iterative reconstruction technique. FINDINGS: Nonspecific periventricular and subcortical white matter changes suggestive of chronic microangiopathy. No hydrocephalus, mass, midline shift, cisternal effacement, intraparenchymal hemorrhage, or extra axial fluid collection.No acute infarction is identified. Atherosclerotic calcifications of the intracranial circulation. The visualized paranasal sinuses and tympanomastoid cavities are well pneumatized. Normal orbital contents, skull base, and calvarium. 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 Impression: 1. No acute abnormalities. 2. Stable micro vascular white matter changes. Signed: Myke Gaona Verified Date/Time: 06/08/2017 02:34:03 Reading Location: [address] Ortho Consult Reading Room ELET AGGREGATION: FUNCTION [id number] 18:04:00* Test Item Value Reference Range Comments WEAK ADP RESULT(BEAKER) (test crgb=5236) 35 % 60-91 PLATELET FUNCTION SCREEN INTERP (BEAKER) (test pegr=0454) 0-39% indicates marked platelet dysfunction [id number] (BEAKER) (test ayba=2398) Ita Britt MD (electronic signature) PLATELET COUNT AGG (BEAKER) (test hxif=1650) 153 K/CU MM 150-450 VITAMIN D, [id number] 16:37:00* Test Item Value Reference Range Comments VITAMIN D 25-OH (BEAKER) (test jgbw=6133) 20.2 ng/mL 6.6-49.9 Effective 04/12/2017: Reference Range ChangeNew: 6.6-49.9 ng/mL Previous: 13.0 -47.8 ng/mLRecommended Vitamin D Target Range: 30.0-40.0 ng/mLPHOSPHORUS 2017-06-07 15:04:00* Test Item Value Reference Range Comments PHOSPHORUS (BEAKER) (test fruu=484) 2.9 mg/dL 2.3-4.7 [id number] 15:04:00* Test Item Value Reference Range Comments MAGNESIUM (BEAKER) (test rbuj=407) 2.2 mg/dL 1.6-2.6 BASIC METABOLIC [id number] 15:04:00* Test Item Value Reference Range Comments SODIUM (BEAKER) (test cqle=128) 143 meq/L 136-145 POTASSIUM (BEAKER) (test jupe=876) 4.4 meq/L 3.5-5.1 CHLORIDE (BEAKER) (test vvug=295) 107 meq/L 98-107 CO2 (BEAKER) (test mncn=338) 26 meq/L 22-29 BLOOD UREA NITROGEN (BEAKER) (test ymzh=761) 38 mg/dL 7-21 CREATININE (BEAKER) (test vbzm=086) 1.34 mg/dL 0.57-1.25 GLUCOSE RANDOM (BEAKER) (test pwon=185) 98 mg/dL 70-105 CALCIUM (BEAKER) (test cktm=539) 8.9 mg/dL 8.4-10.2 EGFR (BEAKER) (test dvgc=0558) 51 mL/min/1.73 sq m ESTIMATED GFR IS NOT ACCURATE CREATININE CLEARANCE IN PREDICTING GLOMERULAR FILTRATION RATE. ESTIMATED GFR IS NOT APPLICABLE FOR DIALYSIS PATIENTS. HEPATIC FUNCTION [id number] 15:04:00* Test Item Value Reference Range Comments TOTAL PROTEIN (BEAKER) (test faoq=422) 6.1 gm/dL 6.0-8.3 ALBUMIN (BEAKER) (test hbch=9664) 3.2 g/dL 3.5-5.0 BILIRUBIN TOTAL (BEAKER) (test cduy=698) 1.4 mg/dL 0.2-1.2 BILIRUBIN DIRECT (BEAKER) (test gvpi=632) 0.9 mg/dL 0.1-0.5 ALKALINE PHOSPHATASE (BEAKER) (test fefk=809) 98 U/L 40-150 AST (SGOT) (BEAKER) (test swih=026) 42 U/L 5-34 ALT (SGPT) (BEAKER) (test ipaq=333) 19 U/L 6-55 [id number] 15:04:00* Test Item Value Reference Range Comments AMYLASE (BEAKER) (test xwvl=450) 75 U/L 25-125 CHOLESTEROL, [id number] 15:04:00* Test Item Value Reference Range Comments CHOLESTEROL (BEAKER) (test npyn=891) 82 mg/dL Cholesterol Reference Range: Low Risk <200 Borderline 200-239 High Risk >240 LACTATE DEHYDROGENASE (LDH)2017-06-07 15:04:00* Test Item Value Reference Range Comments LACTATE DEHYDROGENASE (BEAKER) (test ilcd=447) 378 U/L 125-220 [id number] 15:04:00* Test Item Value Reference Range Comments LIPASE (BEAKER) (test zdcs=857) 86 U/L 8-78 [id number] 15:02:00* Test Item Value Reference Range Comments PREALBUMIN (BEAKER) (test uiit=249) 11 mg/dL 14-45 CBC W/PLT COUNT & AUTO [id number] 14:50:00* Test Item Value Reference Range Comments WHITE BLOOD CELL COUNT (BEAKER) (test rrlf=893) 7.4 K/ L 3.5-10.5 RED BLOOD CELL COUNT (BEAKER) (test hnog=134) 4.50 M/ L 4.63-6.08 HEMOGLOBIN (BEAKER) (test ofpl=674) 12.0 GM/DL 13.7-17.5 HEMATOCRIT (BEAKER) (test qgzj=752) 37.4 % 40.1-51.0 MEAN CORPUSCULAR VOLUME (BEAKER) (test ixrg=718) 83.1 fL 79.0-92.2 MEAN CORPUSCULAR HEMOGLOBIN (BEAKER) (test ycln=295) 26.7 pg 25.7-32.2 MEAN CORPUSCULAR HEMOGLOBIN CONC (BEAKER) (test kxot=769) 32.1 GM/DL 32.3-36.5 RED CELL DISTRIBUTION WIDTH (BEAKER) (test fmsr=573) 19.0 % 11.6-14.4 PLATELET COUNT (BEAKER) (test yvlk=448) 161 K/CU MM 150-450 MEAN PLATELET VOLUME (BEAKER) (test zqao=123) 12.0 fL 9.4-12.4 NUCLEATED RED BLOOD CELLS (BEAKER) (test nhyp=257) 0 /100 WBC 0-0 NEUTROPHILS RELATIVE PERCENT (BEAKER) (test jkcx=529) 70 % LYMPHOCYTES RELATIVE PERCENT (BEAKER) (test iqzo=311) 14 % MONOCYTES RELATIVE PERCENT (BEAKER) (test casr=615) 11 % EOSINOPHILS RELATIVE PERCENT (BEAKER) (test xeib=147) 5 % BASOPHILS RELATIVE PERCENT (BEAKER) (test wxvj=380) 1 % NEUTROPHILS ABSOLUTE COUNT (BEAKER) (test ujjc=375) 5.14 K/ L 1.78-5.38 LYMPHOCYTES ABSOLUTE COUNT (BEAKER) (test hefa=847) 0.99 K/ L 1.32-3.57 MONOCYTES ABSOLUTE COUNT (BEAKER) (test yshb=830) 0.78 K/ L 0.30-0.82 EOSINOPHILS ABSOLUTE COUNT (BEAKER) (test knwf=600) 0.34 K/ L 0.04-0.54 BASOPHILS ABSOLUTE COUNT (BEAKER) (test opxw=232) 0.08 K/ L 0.01-0.08 IMMATURE GRANULOCYTES-RELATIVE PERCENT (BEAKER) (test eqqn=2337) 0 % 0-1 [id number] 14:44:00* Test Item Value Reference Range Comments PARTIAL THROMBOPLASTIN TIME (BEAKER) (test qjrx=545) 36.1 seconds 22.5-36.0 PROTHROMBIN TIME/[id number] 14:43:00* Test Item Value Reference Range Comments PROTIME (BEAKER) (test mszd=623) 14.7 seconds 11.7-14.7 INR (BEAKER) (test ndiv=700) 1.2 <=5.9 RECOMMENDED COUMADIN/WARFARIN INR THERAPY RANGESSTANDARD DOSE: 2.0 - 3.0 Inclu navid: PROPHYLAXIS for venous thrombosis, systemic embolization; TREATMENT for dayna ous thrombosis and/or pulmonary embolus.HIGH RISK: Target INR is 2.5-3.5 for pat ients with mechanical heart valves.[id number] 14:43:00* Test Item Value Reference Range Comments FIBRINOGEN LEVEL (BEAKER) (test rqrf=211) 280 mg/dl 225-434 [id number] 07:11:00* Test Item Value Reference Range Comments MAGNESIUM (BEAKER) (test zkwf=440) 2.2 mg/dL 1.6-2.6 BASIC METABOLIC [id number] 07:11:00* Test Item Value Reference Range Comments SODIUM (BEAKER) (test gsht=004) 143 meq/L 136-145 POTASSIUM (BEAKER) (test ybem=328) 3.7 meq/L 3.5-5.1 CHLORIDE (BEAKER) (test ucxw=067) 108 meq/L 98-107 CO2 (BEAKER) (test lkhe=265) 25 meq/L 22-29 BLOOD UREA NITROGEN (BEAKER) (test wnpf=461) 38 mg/dL 7-21 CREATININE (BEAKER) (test uauo=835) 1.34 mg/dL 0.57-1.25 GLUCOSE RANDOM (BEAKER) (test isvb=596) 92 mg/dL 70-105 CALCIUM (BEAKER) (test nswp=597) 8.8 mg/dL 8.4-10.2 EGFR (BEAKER) (test mxky=5822) 51 mL/min/1.73 sq m ESTIMATED GFR IS NOT ACCURATE CREATININE CLEARANCE IN PREDICTING GLOMERULAR FILTRATION RATE. ESTIMATED GFR IS NOT APPLICABLE FOR DIALYSIS PATIENTS. CBC W/PLT COUNT & AUTO [id number] 06:44:00* Test Item Value Reference Range Comments WHITE BLOOD CELL COUNT (BEAKER) (test ynmg=750) 6.8 K/ L 3.5-10.5 RED BLOOD CELL COUNT (BEAKER) (test vhxd=594) 4.50 M/ L 4.63-6.08 HEMOGLOBIN (BEAKER) (test kcqw=973) 12.0 GM/DL 13.7-17.5 HEMATOCRIT (BEAKER) (test ljxp=186) 37.0 % 40.1-51.0 MEAN CORPUSCULAR VOLUME (BEAKER) (test hcfy=646) 82.2 fL 79.0-92.2 MEAN CORPUSCULAR HEMOGLOBIN (BEAKER) (test uwih=955) 26.7 pg 25.7-32.2 MEAN CORPUSCULAR HEMOGLOBIN CONC (BEAKER) (test gnlu=455) 32.4 GM/DL 32.3-36.5 RED CELL DISTRIBUTION WIDTH (BEAKER) (test dgej=322) 19.0 % 11.6-14.4 PLATELET COUNT (BEAKER) (test ohoy=981) 150 K/CU MM 150-450 MEAN PLATELET VOLUME (BEAKER) (test kcch=387) 13.3 fL 9.4-12.4 NUCLEATED RED BLOOD CELLS (BEAKER) (test qlet=408) 0 /100 WBC 0-0 NEUTROPHILS RELATIVE PERCENT (BEAKER) (test ralo=315) 61 % LYMPHOCYTES RELATIVE PERCENT (BEAKER) (test hvyx=476) 22 % MONOCYTES RELATIVE PERCENT (BEAKER) (test lgqv=851) 10 % EOSINOPHILS RELATIVE PERCENT (BEAKER) (test kzon=526) 6 % BASOPHILS RELATIVE PERCENT (BEAKER) (test stxf=599) 1 % NEUTROPHILS ABSOLUTE COUNT (BEAKER) (test oxnz=711) 4.15 K/ L 1.78-5.38 LYMPHOCYTES ABSOLUTE COUNT (BEAKER) (test trtz=332) 1.48 K/ L 1.32-3.57 MONOCYTES ABSOLUTE COUNT (BEAKER) (test hjmk=531) 0.69 K/ L 0.30-0.82 EOSINOPHILS ABSOLUTE COUNT (BEAKER) (test sjgz=579) 0.41 K/ L 0.04-0.54 BASOPHILS ABSOLUTE COUNT (BEAKER) (test hxjj=607) 0.09 K/ L 0.01-0.08 IMMATURE GRANULOCYTES-RELATIVE PERCENT (BEAKER) (test qnhh=4274) 0 % 0-1 RAD, CHEST, 1 VIEW, NON [id number] 17:50:00Reason for exam:->check picc placement Should this be performed at the bedside?->YesFINAL REPORT INDICATION: check picc placement COMPARISON: June 05, 2017 TECHNIQUE: Chest radiograph, single view, portable technique. FINDINGS / IMPRESSION: There is a new right PICC line that terminates at the cavoatrial junction. Multilead left subclavian ICD and median sternotomy wires again demonstrated. No pulmonary edema, consolidation, or pneumothorax. Left retroc ardiac opacity likely represents residual atelectasis and small pleural effusion . Signed: Edson Vera Verified Date/Time: 06/06/2017 17:50:45 Carisa guillen Location: [facility] C013W Consult Reading Room [id number] 16:10:00* Test Item Value Reference Range Comments POTASSIUM (BEAKER) (test wnjf=291) 3.8 meq/L 3.5-5.1 [id number] 16:10:00* Test Item Value Reference Range Comments MAGNESIUM (BEAKER) (test dtzx=312) 2.0 mg/dL 1.6-2.6 [id number] 04:49:00* Test Item Value Reference Range Comments MAGNESIUM (BEAKER) (test qsve=196) 1.8 mg/dL 1.6-2.6 Specimen slightly hemolyzed BASIC METABOLIC [id number] 04:49:00* Test Item Value Reference Range Comments SODIUM (BEAKER) (test lhvl=246) 142 meq/L 136-145 POTASSIUM (BEAKER) (test xkoc=398) 3.4 meq/L 3.5-5.1 Specimen slightly hemolyzed CHLORIDE (BEAKER) (test pumt=039) 108 meq/L 98-107 CO2 (BEAKER) (test mtzg=321) 23 meq/L 22-29 BLOOD UREA NITROGEN (BEAKER) (test rfcq=676) 47 mg/dL 7-21 CREATININE (BEAKER) (test htxn=698) 1.51 mg/dL 0.57-1.25 Specimen slightly hemolyzed GLUCOSE RANDOM (BEAKER) (test rgpl=478) 103 mg/dL 70-105 CALCIUM (BEAKER) (test dmru=838) 8.6 mg/dL 8.4-10.2 EGFR (BEAKER) (test pbgm=9883) 45 mL/min/1.73 sq m ESTIMATED GFR IS NOT ACCURATE CREATININE CLEARANCE IN PREDICTING GLOMERULAR FILTRATION RATE. ESTIMATED GFR IS NOT APPLICABLE FOR DIALYSIS PATIENTS. CBC W/PLT COUNT & AUTO [id number] 04:30:00* Test Item Value Reference Range Comments WHITE BLOOD CELL COUNT (BEAKER) (test alzz=510) 6.3 K/ L 3.5-10.5 RED BLOOD CELL COUNT (BEAKER) (test mrql=686) 4.36 M/ L 4.63-6.08 HEMOGLOBIN (BEAKER) (test rtsu=596) 11.6 GM/DL 13.7-17.5 HEMATOCRIT (BEAKER) (test wmza=924) 36.0 % 40.1-51.0 MEAN CORPUSCULAR VOLUME (BEAKER) (test mwlp=020) 82.6 fL 79.0-92.2 MEAN CORPUSCULAR HEMOGLOBIN (BEAKER) (test mqfn=495) 26.6 pg 25.7-32.2 MEAN CORPUSCULAR HEMOGLOBIN CONC (BEAKER) (test kvmm=247) 32.2 GM/DL 32.3-36.5 RED CELL DISTRIBUTION WIDTH (BEAKER) (test xcqe=325) 18.7 % 11.6-14.4 PLATELET COUNT (BEAKER) (test dgdj=658) 157 K/CU MM 150-450 MEAN PLATELET VOLUME (BEAKER) (test lrfb=896) 12.5 fL 9.4-12.4 NUCLEATED RED BLOOD CELLS (BEAKER) (test kwfo=790) 0 /100 WBC 0-0 NEUTROPHILS RELATIVE PERCENT (BEAKER) (test rmfs=878) 59 % LYMPHOCYTES RELATIVE PERCENT (BEAKER) (test wnte=690) 25 % MONOCYTES RELATIVE PERCENT (BEAKER) (test mbez=765) 10 % EOSINOPHILS RELATIVE PERCENT (BEAKER) (test cmaw=124) 5 % BASOPHILS RELATIVE PERCENT (BEAKER) (test beiy=891) 1 % NEUTROPHILS ABSOLUTE COUNT (BEAKER) (test sykx=105) 3.72 K/ L 1.78-5.38 LYMPHOCYTES ABSOLUTE COUNT (BEAKER) (test rflb=233) 1.55 K/ L 1.32-3.57 MONOCYTES ABSOLUTE COUNT (BEAKER) (test tmly=734) 0.66 K/ L 0.30-0.82 EOSINOPHILS ABSOLUTE COUNT (BEAKER) (test nzfe=332) 0.30 K/ L 0.04-0.54 BASOPHILS ABSOLUTE COUNT (BEAKER) (test xfrp=077) 0.08 K/ L 0.01-0.08 IMMATURE GRANULOCYTES-RELATIVE PERCENT (BEAKER) (test rhll=2567) 0 % 0-1 RAD, CHEST, 1 VIEW, NON [id number] 03:19:00Reason for exam:->dyspneaShould this be performed at the bedside?->YesFINAL REPORT Comparison exam: 06/05/2017 Subsegmental left lower lobe atelectasis. No pneumothorax. Stable cardiomediastinal contours. Signed: Myke Gaona MDReport Verified Date/Time: 06/06/2017 03:19:18 Reading Location: [facility] C013X Ortho Consult Reading Room [id number] 22:10:00* Test Item Value Reference Range Comments PARTIAL THROMBOPLASTIN TIME (BEAKER) (test ulgl=285) 32.8 seconds 22.5-36.0 PROTHROMBIN TIME/[id number] 22:09:00* Test Item Value Reference Range Comments PROTIME (BEAKER) (test cbcv=384) 15.1 seconds 11.7-14.7 INR (BEAKER) (test pnms=032) 1.2 <=5.9 RECOMMENDED COUMADIN/WARFARIN INR THERAPY RANGESSTANDARD DOSE: 2.0 - 3.0 Inclu navid: PROPHYLAXIS for venous thrombosis, systemic embolization; TREATMENT for dayna ous thrombosis and/or pulmonary embolus.HIGH RISK: Target INR is 2.5-3.5 for pat ients with mechanical heart valves.[id number] 21:57:00* Test Item Value Reference Range Comments PHOSPHORUS (BEAKER) (test ynrd=893) 3.0 mg/dL 2.3-4.7 [id number] 21:57:00* Test Item Value Reference Range Comments MAGNESIUM (BEAKER) (test lcqn=837) 1.9 mg/dL 1.6-2.6 BASIC METABOLIC [id number] 21:57:00* Test Item Value Reference Range Comments SODIUM (BEAKER) (test ljft=557) 143 meq/L 136-145 POTASSIUM (BEAKER) (test okxm=349) 3.8 meq/L 3.5-5.1 CHLORIDE (BEAKER) (test xkob=906) 105 meq/L 98-107 CO2 (BEAKER) (test vlgh=535) 25 meq/L 22-29 BLOOD UREA NITROGEN (BEAKER) (test qick=277) 50 mg/dL 7-21 CREATININE (BEAKER) (test gcmt=426) 1.72 mg/dL 0.57-1.25 GLUCOSE RANDOM (BEAKER) (test mxbv=508) 116 mg/dL 70-105 CALCIUM (BEAKER) (test vavc=290) 9.4 mg/dL 8.4-10.2 EGFR (BEAKER) (test fqjm=6292) 38 mL/min/1.73 sq m ESTIMATED GFR IS NOT ACCURATE CREATININE CLEARANCE IN PREDICTING GLOMERULAR FILTRATION RATE. ESTIMATED GFR IS NOT APPLICABLE FOR DIALYSIS PATIENTS. URINALYSIS W/ [id number] 21:34:00* Test Item Value Reference Range Comments COLOR (BEAKER) (test tnby=336) Light Yellow CLARITY (BEAKER) (test iuag=934) Clear SPECIFIC GRAVITY UA (BEAKER) (test ctnr=006) 1.005 1.001-1.035 PH UA (BEAKER) (test ujxy=391) 5.5 5.0-8.0 PROTEIN UA (BEAKER) (test hbdf=194) Negative Negative GLUCOSE UA (BEAKER) (test cdka=570) Negative Negative KETONES UA (BEAKER) (test jepd=681) Negative Negative BILIRUBIN UA (BEAKER) (test hsji=012) Negative Negative BLOOD UA (BEAKER) (test rawc=895) Negative Negative NITRITE UA (BEAKER) (test fqoj=797) Negative Negative LEUKOCYTE ESTERASE UA (BEAKER) (test psyz=519) Negative Negative UROBILINOGEN UA (BEAKER) (test ewvf=950) 0.2 mg/dL 0.2-1.0 RBC UA (BEAKER) (test ychu=241) 0 /HPF WBC UA (BEAKER) (test qbmj=938) < /HPF MUCUS (BEAKER) (test kidp=2609) Rare SOURCE(BEAKER) (test aylu=3312) Urine, Clean Catch CBC W/PLT COUNT & AUTO [id number] 21:32:00* Test Item Value Reference Range Comments WHITE BLOOD CELL COUNT (BEAKER) (test tbop=266) 6.3 K/ L 3.5-10.5 RED BLOOD CELL COUNT (BEAKER) (test djbz=392) 4.80 M/ L 4.63-6.08 HEMOGLOBIN (BEAKER) (test pivg=707) 12.8 GM/DL 13.7-17.5 HEMATOCRIT (BEAKER) (test erut=915) 40.1 % 40.1-51.0 MEAN CORPUSCULAR VOLUME (BEAKER) (test madh=480) 83.5 fL 79.0-92.2 MEAN CORPUSCULAR HEMOGLOBIN (BEAKER) (test wegd=422) 26.7 pg 25.7-32.2 MEAN CORPUSCULAR HEMOGLOBIN CONC (BEAKER) (test eawz=768) 31.9 GM/DL 32.3-36.5 RED CELL DISTRIBUTION WIDTH (BEAKER) (test ieof=810) 19.2 % 11.6-14.4 PLATELET COUNT (BEAKER) (test qtnh=741) 161 K/CU MM 150-450 MEAN PLATELET VOLUME (BEAKER) (test nccl=194) 12.7 fL 9.4-12.4 NUCLEATED RED BLOOD CELLS (BEAKER) (test lnvp=866) 0 /100 WBC 0-0 NEUTROPHILS RELATIVE PERCENT (BEAKER) (test sdmu=744) 64 % LYMPHOCYTES RELATIVE PERCENT (BEAKER) (test szpp=978) 22 % MONOCYTES RELATIVE PERCENT (BEAKER) (test dtrg=277) 10 % EOSINOPHILS RELATIVE PERCENT (BEAKER) (test sdmy=801) 2 % BASOPHILS RELATIVE PERCENT (BEAKER) (test ylua=344) 1 % NEUTROPHILS ABSOLUTE COUNT (BEAKER) (test ifnc=757) 4.06 K/ L 1.78-5.38 LYMPHOCYTES ABSOLUTE COUNT (BEAKER) (test rbpp=520) 1.41 K/ L 1.32-3.57 MONOCYTES ABSOLUTE COUNT (BEAKER) (test vazg=246) 0.63 K/ L 0.30-0.82 EOSINOPHILS ABSOLUTE COUNT (BEAKER) (test qdpe=648) 0.12 K/ L 0.04-0.54 BASOPHILS ABSOLUTE COUNT (BEAKER) (test yaaq=186) 0.09 K/ L 0.01-0.08 IMMATURE GRANULOCYTES-RELATIVE PERCENT (BEAKER) (test swtm=8655) 1 % 0-1 CT, BRAIN, WITHOUT [id number] 12:17:00Reason for exam:->headacheWhat is the patient's sedation requirement?->No SedationFINAL REPORT CT head without contrast INDICATION: Headache, altered mental status TECHNIQUE: Axial noncontrast CT images through the head were obtained. Repeat scanning was performed due to motion artifact on the initial series. This exam was performed according to our departmental dose optimization program which includes automated exposure control, adjustment of the mA and/or kV according to patient size and/or use of iterative reconstruction technique. COMPARISON: None available FINDINGS:There is no parenchymal hematoma or extra-axial collection. There is nonspecific white matter lucency suggesting microvascular ischemia which is chronic appearing. Right frontal convexity dural calcification or incidental meningioma is present without mass effect. Please note that CT is insensitive for early or small infarcts. Generalized volume loss and vascular calcifications are noted. There is no hydrocephalus or midline shift. The vi sualized sinuses and mastoid air cells are well aerated. There has been cataract surgery. The calvarium is intact. IMPRESSION: No acute intracranial hemorrhage or mass effect. Chronic appearing microvascular and involutional changes. Right frontal convexity dural calcification or incidental meningioma. If there is pers istent concern for acute abnormality, MRI is advised. Signed: Chen Jacksoneport Verified Date/Time: 06/05/2017 12:17:43 Reading Location: [place] [id number] 13 Neuro Reading Room , CHEST, 1 VIEW, NON [id number] 10:28:00Reason for exam:->CHEST PAINShould this be performed at the bedside?->YesFINAL REPORT Chest one view. Clinical history: CHEST PAIN Comparison: October 04, 2012 Discussion: A frontal chest is provided. Cardiac silhouette is enlarged. There is a left-sided ICD and pacemaker device. There is mild interstitial edema. Small bilateral pleural effusions are noted with bibasilar atelectasis. No pneumothorax. Signed: Bladimir Kaplan Verified Date/Time: 08/06/2016 10:28:33 Reading Location: [facility] Radiology Reading Room W/PLT COUNT & AUTO [id number] 10:12:00* Test Item Value Reference Range Comments WHITE BLOOD CELL COUNT (BEAKER) (test walo=481) 5.7 K/ L 3.5-10.5 RED BLOOD CELL COUNT (BEAKER) (test vwfz=851) 4.83 M/ L 4.63-6.08 HEMOGLOBIN (BEAKER) (test cxdr=163) 12.8 GM/DL 13.7-17.5 HEMATOCRIT (BEAKER) (test svgo=864) 39.8 % 40.1-51.0 MEAN CORPUSCULAR VOLUME (BEAKER) (test cexi=639) 82.4 fL 79.0-92.2 MEAN CORPUSCULAR HEMOGLOBIN (BEAKER) (test vedg=367) 26.5 pg 25.7-32.2 MEAN CORPUSCULAR HEMOGLOBIN CONC (BEAKER) (test eszg=208) 32.2 GM/DL 32.3-36.5 RED CELL DISTRIBUTION WIDTH (BEAKER) (test fdqd=399) 19.3 % 11.6-14.4 PLATELET COUNT (BEAKER) (test gcny=785) 148 K/CU MM 150-450 MEAN PLATELET VOLUME (BEAKER) (test ysfj=344) 12.9 fL 9.4-12.4 NUCLEATED RED BLOOD CELLS (BEAKER) (test ejqw=772) 0 /100 WBC 0-0 NEUTROPHILS RELATIVE PERCENT (BEAKER) (test uyos=078) 60 % LYMPHOCYTES RELATIVE PERCENT (BEAKER) (test qoco=672) 25 % MONOCYTES RELATIVE PERCENT (BEAKER) (test dzdc=810) 10 % EOSINOPHILS RELATIVE PERCENT (BEAKER) (test qckf=640) 3 % BASOPHILS RELATIVE PERCENT (BEAKER) (test rbpt=046) 2 % NEUTROPHILS ABSOLUTE COUNT (BEAKER) (test pvjg=445) 3.44 K/ L 1.78-5.38 LYMPHOCYTES ABSOLUTE COUNT (BEAKER) (test udmy=697) 1.43 K/ L 1.32-3.57 MONOCYTES ABSOLUTE COUNT (BEAKER) (test ewho=551) 0.57 K/ L 0.30-0.82 EOSINOPHILS ABSOLUTE COUNT (BEAKER) (test akng=558) 0.16 K/ L 0.04-0.54 BASOPHILS ABSOLUTE COUNT (BEAKER) (test zuaq=490) 0.09 K/ L 0.01-0.08 IMMATURE GRANULOCYTES-RELATIVE PERCENT (BEAKER) (test llei=8958) 0 % 0-1 TROPONIN [id number] 10:08:00* Test Item Value Reference Range Comments TROPONIN I (BEAKER) (test npkj=180) 0.19 ng/mL 0.00-0.03 Troponin I (TnI) levels must be interpreted in the context of the presenting sym ptoms and the clinical findings. Elevated TnI levels indicate myocardial damage, but are not specific for ischemic heart disease. Elevated TnI levels are seen in patients with other cardiac conditions (including myocarditis and congestive h eart failure), and slight TnI elevations occur in patients with other conditions , including sepsis, renal failure, acidosis, acute neurological disease, and per sistent tachyarrhythmia.B-TYPE NATRIURETIC FACTOR (BNP)2017-06-05 10:05:00* Test Item Value Reference Range Comments B-TYPE NATRIURETIC PEPTIDE (BEAKER) (test ujwr=837) 4758 pg/mL 0-100 CREATINE KINASE (CK), TOTAL AND [id number] 10:05:00* Test Item Value Reference Range Comments CREATINE KINASE TOTAL (BEAKER) (test pmpt=040) 186 U/L 29-200 CREATINE KINASE-MB (BEAKER) (test vsyd=205) 5.4 ng/mL 0.0-6.6 CREATINE KINASE-MB INDEX (BEAKER) (test tqsn=560) 2.9 % CK-MB Reference Range:<6.7 Normal6.7-10.0 Borderline>10.0 Abnormal BASIC METABOLIC [id number] 09:59:00* Test Item Value Reference Range Comments SODIUM (BEAKER) (test znic=652) 144 meq/L 136-145 POTASSIUM (BEAKER) (test hnrt=190) 3.6 meq/L 3.5-5.1 CHLORIDE (BEAKER) (test akft=831) 106 meq/L 98-107 CO2 (BEAKER) (test alvn=502) 24 meq/L 22-29 BLOOD UREA NITROGEN (BEAKER) (test fera=829) 53 mg/dL 7-21 CREATININE (BEAKER) (test iunt=423) 1.85 mg/dL 0.57-1.25 GLUCOSE RANDOM (BEAKER) (test xeve=291) 93 mg/dL 70-105 CALCIUM (BEAKER) (test qeij=195) 9.6 mg/dL 8.4-10.2 EGFR (BEAKER) (test cxas=9647) 35 mL/min/1.73 sq m ESTIMATED GFR IS NOT ACCURATE CREATININE CLEARANCE IN PREDICTING GLOMERULAR FILTRATION RATE. ESTIMATED GFR IS NOT APPLICABLE FOR DIALYSIS PATIENTS. PT/[id number] 09:59:00* Test Item Value Reference Range Comments PROTIME (BEAKER) (test qlpq=987) 15.5 seconds 11.7-14.7 INR (BEAKER) (test rlue=258) 1.2 <=5.9 PARTIAL THROMBOPLASTIN TIME (BEAKER) (test xmco=230) 34.8 seconds 22.5-36.0 RECOMMENDED COUMADIN/WARFARIN INR THERAPY RANGESSTANDARD DOSE: 2.0 - 3.0 Inclu navid: PROPHYLAXIS for venous thrombosis, systemic embolization; TREATMENT for dayna ous thrombosis and/or pulmonary embolus.HIGH RISK: Target INR is 2.5-3.5 for pat ients with mechanical heart valves.B-TYPE NATRIURETIC FACTOR (BNP)2017-05-23 10:22:00* Test Item Value Reference Range Comments B-TYPE NATRIURETIC PEPTIDE (BEAKER) (test tyxx=250) 7096 pg/mL 0-100 BASIC METABOLIC [id number] 10:17:00* Test Item Value Reference Range Comments SODIUM (BEAKER) (test hgkr=240) 142 meq/L 136-145 POTASSIUM (BEAKER) (test pijl=052) 4.7 meq/L 3.5-5.1 Specimen slightly hemolyzed CHLORIDE (BEAKER) (test sdyw=972) 107 meq/L 98-107 CO2 (BEAKER) (test evdu=545) 21 meq/L 22-29 BLOOD UREA NITROGEN (BEAKER) (test ngvp=262) 49 mg/dL 7-21 CREATININE (BEAKER) (test xnuh=039) 1.89 mg/dL 0.57-1.25 Specimen slightly hemolyzed GLUCOSE RANDOM (BEAKER) (test gxgg=495) 96 mg/dL 70-105 CALCIUM (BEAKER) (test ogbq=532) 9.5 mg/dL 8.4-10.2 EGFR (BEAKER) (test jdko=0828) 34 mL/min/1.73 sq m ESTIMATED GFR IS NOT ACCURATE CREATININE CLEARANCE IN PREDICTING GLOMERULAR FILTRATION RATE. ESTIMATED GFR IS NOT APPLICABLE FOR DIALYSIS PATIENTS. LIPID [id number] 10:17:00* Test Item Value Reference Range Comments TRIGLYCERIDES (BEAKER) (test sfap=503) 76 mg/dL Specimen slightly hemolyzed CHOLESTEROL (BEAKER) (test zjag=383) 87 mg/dL Specimen slightly hemolyzed HDL CHOLESTEROL (BEAKER) (test ukta=136) 45 mg/dL LDL CHOLESTEROL CALCULATED (BEAKER) (test rhwq=170) 27 mg/dL Triglyceride Reference Range: Low Risk <150 Borderline 150-199 High Risk 200-499 Very High Risk >=500Cholesterol Reference Range: Low Risk <200 Borderline 200-239 High Risk >240HDL Cholesterol Reference Range: Low Risk >=60 High Risk <40LDL Cholesterol Reference Range: Optimal <100 Near Optimal 100-129 Borderline 130-159 High 160-189 Very High >=190 HEPATIC FUNCTION [id number] 10:17:00* Test Item Value Reference Range Comments TOTAL PROTEIN (BEAKER) (test nmyj=867) 6.8 gm/dL 6.0-8.3 Specimen slightly hemolyzed ALBUMIN (BEAKER) (test upvx=2390) 3.6 g/dL 3.5-5.0 Specimen slightly hemolyzed BILIRUBIN TOTAL (BEAKER) (test pyan=655) 1.4 mg/dL 0.2-1.2 Specimen slightly hemolyzed BILIRUBIN DIRECT (BEAKER) (test xenx=768) 0.8 mg/dL 0.1-0.5 Specimen slightly hemolyzed ALKALINE PHOSPHATASE (BEAKER) (test xeya=381) 115 U/L 40-150 AST (SGOT) (BEAKER) (test qzdu=873) 48 U/L 5-34 Specimen slightly hemolyzed ALT (SGPT) (BEAKER) (test lqov=018) 28 U/L 6-55 Specimen slightly hemolyzed CBC W/PLT COUNT & AUTO [id number] 09:30:00* Test Item Value Reference Range Comments WHITE BLOOD CELL COUNT (BEAKER) (test ibgd=542) 6.6 K/ L 3.5-10.5 RED BLOOD CELL COUNT (BEAKER) (test swrw=664) 4.97 M/ L 4.63-6.08 HEMOGLOBIN (BEAKER) (test hhgk=384) 13.5 GM/DL 13.7-17.5 HEMATOCRIT (BEAKER) (test dtli=388) 42.3 % 40.1-51.0 MEAN CORPUSCULAR VOLUME (BEAKER) (test nkjf=933) 85.1 fL 79.0-92.2 MEAN CORPUSCULAR HEMOGLOBIN (BEAKER) (test kszw=738) 27.2 pg 25.7-32.2 MEAN CORPUSCULAR HEMOGLOBIN CONC (BEAKER) (test ropo=759) 31.9 GM/DL 32.3-36.5 RED CELL DISTRIBUTION WIDTH (BEAKER) (test gxpa=256) 18.6 % 11.6-14.4 PLATELET COUNT (BEAKER) (test cezi=470) 168 K/CU MM 150-450 MEAN PLATELET VOLUME (BEAKER) (test fdtr=620) 13.0 fL 9.4-12.4 NUCLEATED RED BLOOD CELLS (BEAKER) (test crcv=902) 0 /100 WBC 0-0 NEUTROPHILS RELATIVE PERCENT (BEAKER) (test auod=067) 63 % LYMPHOCYTES RELATIVE PERCENT (BEAKER) (test tptv=939) 23 % MONOCYTES RELATIVE PERCENT (BEAKER) (test xxfc=512) 9 % EOSINOPHILS RELATIVE PERCENT (BEAKER) (test sxoq=856) 3 % BASOPHILS RELATIVE PERCENT (BEAKER) (test tlmb=489) 2 % NEUTROPHILS ABSOLUTE COUNT (BEAKER) (test osvm=508) 4.11 K/ L 1.78-5.38 LYMPHOCYTES ABSOLUTE COUNT (BEAKER) (test ylvp=122) 1.50 K/ L 1.32-3.57 MONOCYTES ABSOLUTE COUNT (BEAKER) (test ebpq=115) 0.62 K/ L 0.30-0.82 EOSINOPHILS ABSOLUTE COUNT (BEAKER) (test bnmf=950) 0.21 K/ L 0.04-0.54 BASOPHILS ABSOLUTE COUNT (BEAKER) (test oder=946) 0.10 K/ L 0.01-0.08 IMMATURE GRANULOCYTES-RELATIVE PERCENT (BEAKER) (test mzfh=2001) 1 % 0-1 B-TYPE NATRIURETIC FACTOR (BNP)2016-11-29 10:26:00* Test Item Value Reference Range Comments B-TYPE NATRIURETIC PEPTIDE (BEAKER) (test loyt=041) 777 pg/mL 0-100 BASIC METABOLIC [id number] 10:18:00* Test Item Value Reference Range Comments SODIUM (BEAKER) (test anip=062) 139 meq/L 136-145 POTASSIUM (BEAKER) (test aweb=687) 4.6 meq/L 3.5-5.1 CHLORIDE (BEAKER) (test jloh=819) 105 meq/L 98-107 CO2 (BEAKER) (test bflo=329) 26 meq/L 22-29 BLOOD UREA NITROGEN (BEAKER) (test oscc=095) 42 mg/dL 7-21 CREATININE (BEAKER) (test hdmr=744) 1.73 mg/dL 0.57-1.25 GLUCOSE RANDOM (BEAKER) (test nozz=418) 84 mg/dL 70-105 CALCIUM (BEAKER) (test sqhj=649) 9.6 mg/dL 8.4-10.2 EGFR (BEAKER) (test zqgu=3526) 38 mL/min/1.73 sq m ESTIMATED GFR IS NOT ACCURATE CREATININE CLEARANCE IN PREDICTING GLOMERULAR FILTRATION RATE. ESTIMATED GFR IS NOT APPLICABLE FOR DIALYSIS PATIENTS. CBC W/PLT COUNT & AUTO [id number] 10:14:00* Test Item Value Reference Range Comments WHITE BLOOD CELL COUNT (BEAKER) (test bzux=233) 8.9 K/ L 4.0-10.0 RED BLOOD CELL COUNT (BEAKER) (test nrhj=828) 4.38 M/ L 4.20-5.80 HEMOGLOBIN (BEAKER) (test whlm=185) 13.4 GM/DL 13.0-16.8 HEMATOCRIT (BEAKER) (test ktsh=934) 40.8 % 40.0-50.0 MEAN CORPUSCULAR VOLUME (BEAKER) (test fjsy=563) 93.1 fL 82.0-98.0 MEAN CORPUSCULAR HEMOGLOBIN (BEAKER) (test tuaj=886) 30.5 pg 27.0-33.0 MEAN CORPUSCULAR HEMOGLOBIN CONC (BEAKER) (test jaro=028) 32.8 GM/DL 32.0-36.0 RED CELL DISTRIBUTION WIDTH (BEAKER) (test jncj=397) 14.3 % 10.3-14.2 PLATELET COUNT (BEAKER) (test jzwd=850) 225 K/CU MM 150-430 MEAN PLATELET VOLUME (BEAKER) (test npmj=524) 8.7 fL 6.5-10.5 NUCLEATED RED BLOOD CELLS (BEAKER) (test svow=592) 0 /100 WBC 0-0 NEUTROPHILS RELATIVE PERCENT (BEAKER) (test yian=848) 58 % LYMPHOCYTES RELATIVE PERCENT (BEAKER) (test jpug=620) 29 % MONOCYTES RELATIVE PERCENT (BEAKER) (test eoar=153) 6 % EOSINOPHILS RELATIVE PERCENT (BEAKER) (test rsoc=955) 6 % BASOPHILS RELATIVE PERCENT (BEAKER) (test svts=772) 1 % NEUTROPHILS ABSOLUTE COUNT (BEAKER) (test qhgn=616) 5.17 K/ L 1.80-8.00 LYMPHOCYTES ABSOLUTE COUNT (BEAKER) (test uhpn=447) 2.55 K/ L 1.48-4.50 MONOCYTES ABSOLUTE COUNT (BEAKER) (test wyqr=582) 0.54 K/ L 0.00-1.30 EOSINOPHILS ABSOLUTE COUNT (BEAKER) (test bytu=332) 0.51 K/ L 0.00-0.50 BASOPHILS ABSOLUTE COUNT (BEAKER) (test xquu=601) 0.10 K/ L 0.00-0.20 0.00B-TYPE NATRIURETIC FACTOR (BNP)2016-08-30 11:00:00* Test Item Value Reference Range Comments B-TYPE NATRIURETIC PEPTIDE (BEAKER) (test argp=148) 625 pg/mL 0-100 LIPID [id number] 10:54:00* Test Item Value Reference Range Comments TRIGLYCERIDES (BEAKER) (test mmrp=471) 189 mg/dL CHOLESTEROL (BEAKER) (test ttng=187) 149 mg/dL HDL CHOLESTEROL (BEAKER) (test mpzr=946) 40 mg/dL LDL CHOLESTEROL CALCULATED (BEAKER) (test okzm=313) 71 mg/dL Triglyceride Reference Range: Low Risk <150 Borderline 150-199 High Risk 200-499 Very High Risk >=500Cholesterol Reference Range: Low Risk <200 Borderline 200-239 High Risk >240HDL Cholesterol Reference Range: Low Risk >=60 High Risk <40LDL Cholesterol Reference Range: Optimal <100 Near Optimal 100-129 Borderline 130-159 High 160-189 Very High >=190 BASIC METABOLIC [id number] 10:54:00* Test Item Value Reference Range Comments SODIUM (BEAKER) (test mgdo=042) 142 meq/L 136-145 POTASSIUM (BEAKER) (test prkc=432) 4.8 meq/L 3.5-5.1 CHLORIDE (BEAKER) (test izkd=430) 106 meq/L 98-107 CO2 (BEAKER) (test eaxa=550) 27 meq/L 22-29 BLOOD UREA NITROGEN (BEAKER) (test xxve=830) 52 mg/dL 7-21 CREATININE (BEAKER) (test ruas=578) 1.91 mg/dL 0.57-1.25 GLUCOSE RANDOM (BEAKER) (test tyvo=996) 91 mg/dL 70-105 CALCIUM (BEAKER) (test yupg=972) 9.3 mg/dL 8.4-10.2 EGFR (BEAKER) (test muvz=9698) 34 mL/min/1.73 sq m ESTIMATED GFR IS NOT ACCURATE CREATININE CLEARANCE IN PREDICTING GLOMERULAR FILTRATION RATE. ESTIMATED GFR IS NOT APPLICABLE FOR DIALYSIS PATIENTS. HEPATIC FUNCTION [id number] 10:54:00* Test Item Value Reference Range Comments TOTAL PROTEIN (BEAKER) (test hbka=165) 6.6 gm/dL 6.0-8.3 ALBUMIN (BEAKER) (test rzrw=5748) 3.8 g/dL 3.5-5.0 BILIRUBIN TOTAL (BEAKER) (test ogzb=722) 0.3 mg/dL 0.2-1.2 BILIRUBIN DIRECT (BEAKER) (test ytsn=203) 0.1 mg/dL 0.1-0.5 ALKALINE PHOSPHATASE (BEAKER) (test ahdi=064) 71 U/L 40-150 AST (SGOT) (BEAKER) (test ocji=218) 16 U/L 5-34 ALT (SGPT) (BEAKER) (test hyel=381) 13 U/L 6-55 CBC W/PLT COUNT & AUTO [id number] 10:40:00* Test Item Value Reference Range Comments WHITE BLOOD CELL COUNT (BEAKER) (test yukj=932) 7.5 K/ L 4.0-10.0 RED BLOOD CELL COUNT (BEAKER) (test hurz=645) 4.24 M/ L 4.20-5.80 HEMOGLOBIN (BEAKER) (test wcyg=655) 12.5 GM/DL 13.0-16.8 HEMATOCRIT (BEAKER) (test rcne=853) 38.7 % 40.0-50.0 MEAN CORPUSCULAR VOLUME (BEAKER) (test jhxa=124) 91.4 fL 82.0-98.0 MEAN CORPUSCULAR HEMOGLOBIN (BEAKER) (test cylv=357) 29.6 pg 27.0-33.0 MEAN CORPUSCULAR HEMOGLOBIN CONC (BEAKER) (test tbjm=313) 32.3 GM/DL 32.0-36.0 RED CELL DISTRIBUTION WIDTH (BEAKER) (test uaqn=463) 13.9 % 10.3-14.2 PLATELET COUNT (BEAKER) (test jvdf=303) 242 K/CU MM 150-430 MEAN PLATELET VOLUME (BEAKER) (test pwtb=121) 8.7 fL 6.5-10.5 NUCLEATED RED BLOOD CELLS (BEAKER) (test bbnm=554) 0 /100 WBC 0-0 NEUTROPHILS RELATIVE PERCENT (BEAKER) (test qeny=967) 61 % LYMPHOCYTES RELATIVE PERCENT (BEAKER) (test wtdt=962) 23 % MONOCYTES RELATIVE PERCENT (BEAKER) (test tmyi=814) 7 % EOSINOPHILS RELATIVE PERCENT (BEAKER) (test ecpw=723) 8 % BASOPHILS RELATIVE PERCENT (BEAKER) (test pyft=680) 1 % NEUTROPHILS ABSOLUTE COUNT (BEAKER) (test dsqk=397) 4.57 K/ L 1.80-8.00 LYMPHOCYTES ABSOLUTE COUNT (BEAKER) (test imie=129) 1.76 K/ L 1.48-4.50 MONOCYTES ABSOLUTE COUNT (BEAKER) (test seje=530) 0.50 K/ L 0.00-1.30 EOSINOPHILS ABSOLUTE COUNT (BEAKER) (test bszr=278) 0.61 K/ L 0.00-0.50 BASOPHILS ABSOLUTE COUNT (BEAKER) (test hayr=484) 0.10 K/ L 0.00-0.20 0.00CHEST SINGLE (PORTABLE) [place] [address] Patient Name: SUKHWINDER MEADOWS JR MR #: [id number] : 1935 Age/Sex: 82/M Req #: [id number] Adm Physician: Ordered by: RIC JULIAN MD Report #: [id number] Location: ER Room/Bed: Procedure: [id number] DX/CHEST SINGLE (PORTABLE) E xam Date: Exam Time: REPORT STATUS: Signed CHEST SINGLE (PORTABLE), 07/28/2017 10:28 PM Technique: CHEST SINGLE (WINSTON BLE) Comparison: 06/10/2017 Clinical history: Abdominal pain Findings: See Impression Impression: 1. Lines/Tubes: Stable left chest wall ICD and right PICC. Intact median sternotomy wires. 2. Stable mildly enlarged card iac silhouette. 3. Small bilateral effusions with left basilar opacity, favor atelectasis in the absence of signs/symptoms of infection. Signed by: Dr Ashish Rivas MD on 07/28/2017 11:56 PM Dictated By: ASHISH RIVAS MD 55 Transcribed By: Sabi ADDISON on 07/28/172355 COPY TO: RIC JULIAN MD CT ABDOMEN/PELVIS WO [place] [address] Patient Name: SUKHWINDER MEADOWS JR MR #: [id number] : 1935 Age/Sex: 82/M Req #: [id number] Adm Physician: Ordered by: RIC JULIAN MD Report #: [id number] Location: ER Room/Bed: Procedure: [id number] CT/CT ABDOMEN/PELVIS WO Exam Date: Exam Time: REPORT STATUS: Signed EX AM: CT ABDOMEN/PELVIS WO DATE: 07/28/2017 8:33 PM INDICATION: S ABD PAIN, CONSTIPATION NO BM X 1 WEEK, CHF ON DOPAMINE COMPARISON: 03/25/2017 TECHNIQ UE: The abdomen and pelvis were scanned using a multidetector helical scanner. Coronal and sagittal reformations were obtained. Routine protocol performed. IV Contrast: None FINDINGS: Lack of IV contrast decreases sensitivity in evaluating abdominal and pelvic organs. LOWER THORAX: Cardiomegaly pos tsternotomy with partially imaged leads. Small left and trace right pleural ef fusions LIVER/BILIARY: Grossly unremarkable. GALLBLADDER: Not visualiz ed SPLEEN: Unchanged, not enlarged. PANCREAS: Unremarkable ADRENALS: No nodules KIDNEYS: No hydronephrosis or stone disease. Left renal cortical th inning/scarring. GI TRACT: No evidence of obstruction. Scattered diverticul osis. Moderate stool burden within the rectosigmoid colon. VESSELS: Moder ate to severe atherosclerotic calcifications. PERITONEUM/RETROPERITONEUM: No f ree fluid or air LYMPH NODES: No lymphadenopathy REPRODUCTIVE ORGANS/BLAD IVANIA: Poorly assessed due to streak artifact from right hip arthroplasty. BONES: Partially imaged right hip arthroplasty. Scattered degenerative changes with minimal anterolisthesis of L5 over S1 IMPRESSION: Moderate rectosig moid stool burden. Otherwise no acute abnormality on noncontrast evaluation. Signed by: Dr Ashish Rivas MD on 07/28/2017 11:08 PM Dictated By: POLY RIVAS MD 07 Transcribed By: JERRELL on 07/28/172307 COPY TO: RIC JULIAN MD CHEST SINGLE (NOT PORTABLE) [place] [address] Patient Name: SUKHWINDER MEADOWS JR MR #: [id number] : 1935 Age/Sex: 82/M Req #: [id number] Adm Physician: Ordered by: STACI OLIVER MD Report #: [id number] Location: ER Room/Bed: Procedure: [id number] DX/CHEST SINGLE (NOT P ORTABLE) Exam Date: 06/10/17 Exam Time: 0250 R EPORT STATUS: Signed EXAM: CHEST SINGLE (NOT PORTABLE), AP 1 view DATE: 06/10/2017 2:22 AM Time stamp on exam: 0242 hours INDICATION: Cough COMPARISON: PA and lateral view the chest April 26, 2017 FINDINGS: LINES/TUBES: St able position of left approach cardiac device. Right approach PICC with tip at the expected location of the atriocaval junction. LUNGS: Vascular congesti on. PLEURA: No effusions or pneumothorax. HEART AND MEDIASTINUM: Stab le cardiomegaly. BONES AND SOFT TISSUES: No acute findings. IMPRESSIO N: Interval placement of a right approach PICC, otherwise no interval change i n appearance of the chest. Signed by: Dr. Bladimir Littlejohn M.D. o n 06/10/2017 3:26 AM Dictated By: BLADIMIR LITTLEJOHN MD 5 Transcribed By: JERRELL on 06/10/17325 COPY TO: STACI OLIVER MD CHEST 2 VIEWS [place] [address] Patient Name: SUKHWINDER MEADOWS JR MR #: [id number] : 1935 Age/Sex: 82/M Req #: [id number] Adm Physician: Ordered by: FAY JAFFE MD Report #: [id number] Location: [facility] Room/Bed: Procedure: [id number] DX/CHEST 2 VIEWS Exam Date: 04/26/17 Exam Time: 0820 REPORT STATUS: Signed PROCEDURE: X-RAY CHEST, TWO VIEWS COMPARISON: 04/11/2017. INDICATIONS: FO LLOW UP PNEUMONIA FINDINGS: The lungs remain well-inflated. Interv al improvement in aeration of the left lung base relative to 04/11/2017. No n ew consolidation, pleural effusion, or pneumothorax. Stable cardiomediastinal contour with left subclavian approach implantable triple lead cardiac device, mediastinal surgical clips, and median sternotomy wires. No acute oss eous abnormality. CONCLUSION: Interval improvement in aeration of the left lung base relative to 04/11/2017. Dictated by: Rhonda Mcclure M.D. on 04/26/2017 at 8:54 Electronically approved by: Rhonda Mcclure M.D. on 1 at 8:54 Dictated By: RHONDA MCCLURE MD Electronically S igned By: RHONDA MCCLURE MD on 04/26/17 0854 Transcribed By: ALISIA on 04/26/17 0 854 COPY TO: FAY JAFFE MD CHEST 2 VIEWS [place] [address] Patient Name: SUKHWINDER MEADOWS JR MR #: [id number] : 1935 Age/Sex: 82/M Req #: [id number] Adm Physician: Ordered by: FAY JAFFE MD Report #: [id number] Location: [facility] Room/Bed: Procedure: [id number] DX/CHEST 2 VIEWS Exam Date: 04/11/17 Exam Time: 1155 REPORT STATUS: Signed PROCEDURE: Frontal and lateral views of the chest. COMPARISON: 03/29/17 INDICATIONS: PNEUMONIA FINDINGS: Lines/tubes: Stable dual lead left chest wall cardiac device. Lungs: The lungs are well inflated. Mild left lower lung field hazy opacification, representing atelectasis and/ or pneumonia. Pleura: There is no significant pleural effusion or pneumot horax. Heart and mediastinum: Enlarged cardiac silhouette, Median sternot althea wires. Bones: No acute bony abnormality. Degenerative changes of t horacic spine. IMPRESSION: Mild left lower lung field hazy opaci fication, representing atelectasis and/or pneumonia. Dictated by: Baba sarah Arreola M.D. on 04/11/2017 at 12:23 Electronically approved by: Jose Enrique Arreola M.D. on 04/11/2017 at 12:23 Dictated By: JOSE ENRIQUE BRAY MD 1223 Transcribed By: ALISIA on 04/11/17 1223 COPY TO: FAY JAFFE MD CHEST SINGLE (PORTABLE) [place] [address] Patient Name: SUKHWINDER MEADOWS JR MR #: [id number] : 1935 Age/Sex: 82/M Req #: [id number] Adm Physician: PÉREZ BANG MD Ordered by: PÉREZ BANG MD Report #: [id number] Location: MED/SURG2 Room/Bed: [facility] Procedure: [id number] DX/CHEST SINGLE (PORTABLE) Exam Date: 03/29/17 Exam Time: 0535 REPORT STATUS: Signed EXAMINATION: CHEST SINGLE (PORTABLE) INDICATION: Congestive heart failure COMPARISON: 03/25 FINDINGS: TUBES and LINES: Left-sided AICD is intact. RENETTA GS: Lungs are well inflated. Lungs are clear. There is no evidence of pneu monia or pulmonary edema. PLEURA: No pleural effusion or pneumothorax. HEART AND MEDIASTINUM: Cardiac size is moderately enlarged. There are ather osclerotic calcifications within the aorta. Midline sternotomy wires are intac t. BONES AND SOFT TISSUES: No acute osseous lesion. Soft tissues are un remarkable. UPPER ABDOMEN: No free air under the diaphragm. IMPRES ILDEFONSO: 1. No acute thoracic abnormality. 2. Moderate cardiomegaly without decompensation. Signed by: Dr. Tenzin Brown M.D. on 03/29/2017 6:07 AM Dictated By: TENZIN HERNANDEZ MD 6 Transcribed By: JERRELL on 03/29/17606 COPY TO: PÉREZ BANG MD US RENAL RETROPERITONEAL COMP [place] [address] Patient Name: SUKHWINDER MEADOWS JR MR #: [id number] : 1935 Age/Sex: 82/M Req #: [id number] Adm Physician: PÉREZ BANG MD Ordered by: DOYLE ALFREDO MD Report #: [id number] Loca tion: MED/SURG2 Room/Bed: [facility] Procedure: [id number] US/US RENAL RETROPERITONEAL COMP Exam Date: Exam Ti me: REPORT STATUS: Signed PROCEDURE: US RETROPERITONEAL ( KIDNEY ). COMPARISON: CT of the abdomen and pelvis from 03/25/2017. INDICATIONS: CH F,CKD TECHNIQUE: Mckinnon-scale and color sonographic images of the bilateral kidneys and bladder where obtained in transverse and longitudinal planes. FINDINGS: RIGHT KIDNEY: 9.8 cm, cortex 1.0 cm Cysts: None Solid masses: None Stones: None Hydronephrosis: None Echogenicity: Increased. LEFT KIDNEY: 11.9 cm, cortex 1.0 cm Cysts: None Solid masses: None Sto marisa: None Hydronephrosis: None Echogenicity: Increased Duplicated juan ecting system of the left kidney. There is cortical scarring in the interpola r region of the left kidney. Bladder: Unremarkable. Prostate: Absent CONCLUSION: 1. 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 2. Increased renal parenchymal echogenicity, consi stent with CKD. 3. No hydronephrosis, stones or solid renal masses. Dictated by: John Bejarano M.D. on 03/27/2017 at 16:38 Electronically approved by: John Bejarano M.D. on 03/27/2017 at 16:38 Dicta fabricio By: JOHN BEJARANO MD 37 COPY TO: EDWARD ALFREDO MD CT ABDOMEN/PELVIS WO [place] [address] Patient Name: SUKHWINDER MEADOWS JR MR #: [id number] : 1935 Age/Sex: 82/M Req #: [id number] Adm Physician: PÉREZ BANG MD Ordered by: FAY JAFFE MD Report #: [id number] Location: MED/SURG2 Room/Bed: [facility] Procedure: [id number] C T/CT ABDOMEN/PELVIS WO Exam Date: 03/25/17 Exam Time : 1737 REPORT STATUS: Signed EXAMINATION: CT of the abdomen and pelvis without contrast. TECHNIQUE: Helical CT images of the abdomen and pelvis w ere performed from the lung bases to the lesser trochanters. No intravenous c ontrast was given. Coronal and sagittal reformatted images were obtained. COMPARISON: None. CLINICAL HISTORY:Congestive heart failure, evaluate for malignancy. DISCUSSION: ABSENCE OF INTRAVENOUS CONTRAST DECREASES SE NSITIVITY FOR DETECTION OF FOCAL LESIONS AND VASCULAR PATHOLOGY. ABDOMEN/ PELVIS: LOWER THORAX: Cardiomegaly with partially visualized ICD leads. HEPATOBILIARY:No focal hepatic lesions. No biliary ductal dilation. The g allbladder is normal. SPLEEN: Remnant spleen versus splenosis. PANCREA S: No focal masses or ductal dilatation. ADRENALS: No adrenal nodules. KIDNEYS/URETERS: Right kidney is normal. Left kidney shows areas of cortical scarring. PELVIC ORGANS/BLADDER: Bladder is decompressed. PERITONEUM/R ETROPERITONEUM: Mild free fluid. Mesenteric edema. LYMPH NODES: No intra-ab dominal,retroperitoneal, pelvic or inguinal lymphadenopathy. VESSELS: Vas cular calcifications. Limited evaluation. GI TRACT: Diverticulosis without inflammatory change. Appendix is normal. BONES AND SOFT TISSUES: Right sary arthroplasty. Lower lumbar facet arthropathy. IMPRESSION: No visualiz ed malignancy. Colonic diverticulosis without inflammatory change. Mil d ascites and mesenteric edema. Signed by: Dr. Shonda Diop M.D. on 03/25 5:53 PM Dictated By: SHONDA DIOP MD 52 Transcribed By: JERRELL on 03/25/171752 COPY TO: FAY JAFFE MD CHEST 2 VIEWS [place] [address] Patient Name: SUKHWINDER MEADOWS JR MR #: [id number] : 1935 Age/Sex: 82/M Req #: [id number] Adm Physician: PÉREZ BANG MD Ordered by: FAY JAFFE MD Report #: [id number] Location: MED/SURG2 Room/Bed: [facility] Procedure: [id number] D X/CHEST 2 VIEWS Exam Date: 03/25/17 Exam Time: 1737 REPORT STATUS: Signed EXAMINATION: PA and lateral views of the chest. COMPARISON: November 06, 2015 CLINICAL HISTORY: Heart failure D ISCUSSION: Lines/tubes: Multi lead pacemaker/ICD. Sternotomy wires. L ungs: Pulmonary venous congestion. No edema. Pleura: There is no pleural effusion or pneumothorax. Heart and mediastinum: Heart size enlarged. Bones and soft tissues: No acute bony abnormalities. IMPRESSION: Cardiomegaly with pulmonary venous congestion. Signed by: Dr. Jennifer Diop M.D. on 03/25/2017 6:17 PM Dictated By: SHONDA DIOP MD 16 Transcribed By: JERRELL on 03/25/171816 COPY TO: FAY JAFFE MD CT CHEST W [place] [address] Patient Name: SUKHWINDER MEADOWS JR MR #: [id number] : 1935 Age/Sex: 82/M Req #: [id number] Adm Physician: Ordered by: SOBEIDA MACIAS MD Report #: [id number] Location: CT Room/Bed: Procedure: [id number] CT/CT CHEST W Exam Date: 03/03 09/16 Exam Time: 1338 REPORT STATUS: Signed P ROCEDURE: CT scan of the chest WITH intravenous contrast, using standard p rotocol. TECHNIQUE: The chest was scanned utilizing a multidetector tri ruth scanner from the lung apex through the level of the adrenal glands after the IV administration of 100 cc of Isovue 370. Coronal and sagittal multi planar reformations were obtained. COMPARISON: None. INDICATIONS: C OPD FINDINGS: Lines/tubes: Left upper chest AICD with lead distal tip s in the right atrium, right ventricle and coronary sinus. Lungs and rways: Nodular and groundglass opacities in the left upper lobe and extending to the lingula, some of which coalesce into larger nodular densities (for ex ample, series 3, images 47, 52 and 57). Linear opacity in the posterior left l ower lobe, likely represent subsegmental atelectasis or scarring. No other pulmonary nodules, masses, or consolidation. Airways are clear, without endobr onchial lesions. Pleura: No effusion, or pneumothorax. Heart and mediast inum: There is unremarkable. Moderate cardiomegaly. Sclerotic calcification o f the coronary arteries and thoracic aorta. Aorta is non-aneurysmal. The main pulmonary artery is enlarged, measuring 3.2 cm. Lymph nodes: Enlarged right lower paratracheal lymph nodes measuring 1.1 and 1.2 cm in short axis ( series 2 image 50 and 48). Enlarged para-aortic lymph node measuring 1.1 cm in short axis (series 2 image 46). No other mediastinal or any hilar or axill justino adenopathy. Abdomen: Limited contrast-enhanced views of the upper abdo men show no abnormality within the visualized liver, pancreas, or kidneys. Th e visualized portions of the adrenal glands are unremarkable. Reflux of co ntrast into the IVC and hepatic veins. Bones: No acute bony abnormalities. Degenerative disc changes in the thoracic spine. No lytic lesions. Midline s ternotomy wires. IMPRESSION: 1. findings in the left upper lobe may represent pneumonia (including atypical infection), in the appropriate setti ng, and primary neoplastic disease (such as adenocarcinoma). Metastatic disea se is less likely given the focal nature of the finding. 2. Enlarged medias tinal lymph nodes, which may be reactive or metastatic. 3. Cardiomegaly. Re flux of contrast into the IVC and hepatic veins suggests right ventricular dy sfunction. 4. Enlargement pulmonary artery, likely reflecting pulmonary hyp ertension. Jamil Cody M.D. Dictated by: Jamil delgado M.D. on 03/15/2017 at 20:19 Electronically approved by: Jamil santana M.D. on 03/15/2017 at 20:19 Dictated By: JAMIL CODY MD 18 Transcribed B y: ALISIA on 03/15/172018 COPY TO: SOBEIDA MACIAS MD
--- NOTE | 2019-06-03 20:48 | Diagnostic Imaging Report ---
History: Fall, hit face and head Comparison studies:None Technique: Axial images were obtained from the brain, face and cervical spine. Coronal and sagittal reconstructions obtained from the axial data. Intravenous contrast: None Dose modulation, iterative reconstruction, and/or weight based adjustment of the mA/kV was utilized to reduce the radiation dose to as low as reasonably achievable. Findings: Head CT: Scalp/skull: Small right frontal scalp hematoma. No fractures, blastic or lytic lesions. Extra-axial spaces: No masses. No fluid collections. Brain sulci: Moderate prominent. Ventricles: Moderate compensatory dilatation. No hydrocephalus. Parenchyma: Scattered hypodensities in the supratentorial white matter are small vessel ischemic changes. . No masses, hemorrhage, acute or chronic cortical vascular insults. Sellar/suprasellar region: No abnormalities. Craniocervical junction: Patent foramen magnum. No Chiari one malformation. Incidental findings: Atherosclerotic calcifications in the carotid siphons and vertebral arteries . Maxillofacial CT: Soft tissues: No abnormalities.. Bones: No fractures or bony abnormalities. . Orbits: No acute abnormalities. Bilateral cataract surgery changes. Paranasal sinuses: Mucosal thickening at the maxillary sinuses. Cervical spine CT: Fractures: None. Soft tissues: No gross abnormalities. Atlantoaxial articulation: No acute abnormality. Degenerative changes. Posterior fusion at C1. Alignment: Straightening of normal lordosis. Grade 1 anterolisthesis of C3 over C4. No scoliosis. Cervicomedullary junction: No abnormalities. The foramen magnum is patent. Vertebrae: No infection or neoplasm. Degenerative changes: Degenerative foraminal, moderate right at C5-6 and severe right at C5-6 disc degeneration with decreased intervertebral space and endplate sclerosis at C5-6 and C6-7. The C7-T1 intervertebral space is not visualized. Incidental findings: Atherosclerotic calcifications of the carotid siphons. Impression: Head CT: 1. No acute intracranial abnormality. 2. Small right frontal scalp hematoma. Facial CT: 1. No acute abnormality. Cervical spine CT: 1. No acute cervical abnormalities. 2. Cannot exclude ligament, spinal cord and or vascular abnormalities on the basis of this examination. Signed by: DR Alfredo Moralez M.D. on 06/03/2019 7:57 PM
== END 2019-06-03 21:20 | disposition home or self-care (01) ==
LOC: ER 17:53
DX: S01.81XA Laceration without foreign body of other part of head, initial encounter (principal); W01.0XXA Fall on same level from slipping, tripping and stumbling without subsequent striking against object, initial encounter; Y92.008 Other place in unspecified non-institutional (private) residence as the place of occurrence of the external cause; I10 Essential (primary) hypertension; Z95.1 Presence of aortocoronary bypass graft
CPT/HCPCS: 70450; 70486; 72125; 99283